=== PATIENT | male | born 1935 | race Caucasian/White ===

== ENCOUNTER 2016-08-25 14:15 | Inpatient (IN) | payer OTHER ==
[2016-08-25 15:24] LABS: BASOPHIL 0.6 % (0-2.0); EOSINOPHIL 5.1 % (0-4.5); MCH 32.7 pg (25.7-33.7); MCHC 34.1 g/dl (32.0-35.9); MEAN CELL VOLUME 95.9 fl (80-96); NEUTROPHILS 45.7 % (42.8-82.8); PLATELET COUNT 162 K/MM3 (134-434); RDW 13.3 % (11.9-15.9); WHITE BLOOD COUNT 6.9 K/mm3 (4.0-10.0)
[2016-08-25 15:35] LABS: ALBUMIN 3.5 g/dl (3.4-5.0); ANION GAP 6 (8-16); BILIRUBIN,TOTAL 0.5 mg/dL (0.2-1.0); CALCIUM 8.9 mg/dL (8.5-10.1); CO2 32 mmol/L (21-32); CREATININE 1.9 mg/dL (0.7-1.3); SGPT/ALT 45 U/L (12-78); TOT PROT 7.1 g/dl (6.4-8.2)
[2016-08-25 15:36] LABS: INR 1.04 (0.82-1.09); PROTHROMBIN TIME (PATIENT) 11.5 SEC (9.98-11.88)
[2016-08-25 15:40] LABS: ALK PHOS 36 U/L (45-117); SGOT/AST 27 U/L (15-37); TROPONIN I < 0.02 ng/ml (0.00-0.05)
[2016-08-25 15:41] LABS: GLUCOSE,RANDOM 342 mg/dL (74-106)
--- NOTE | 2016-08-25 15:42 | PDOC ---
History of Present Illness - General History Source: Patient Exam Limitations: No Limitations - History of Present Illness Initial Comments: 08/25/16 15:45 Patient is a 80 year old male with significant past medical history of diabetes type 2, hypertension, dyslipidemia, HIV+ (controlled, non progressive), and cardiac stent x4 who presents to the ED with left sided facial droop and slurred speech since 4 days ago. Patient notes that he has been slurring his speech and his lip droops down but denies biting his tongue. Patient also reports oozing from the right eye and production of tears in contrast to left eye that feels more dry. PCP: Dr. Marks <Nga Celis - Last Filed: 08/25/16 18:04> <Rayshawn Norton - Last Filed: 08/25/16 18:07> - General Chief Complaint: Facial Droop Stated Complaint: ISSUE WITH JAW/MOUTH Time Seen by Provider: 08/25/16 14:52 Past History <Nga Celis - Last Filed: 08/25/16 18:04> - Past Medical History Anemia: No Asthma: No Cardiac Disorders: Yes Diabetes: Yes HTN: Yes Hypercholesterolemia: Yes HIV: Yes - Surgical History Cardiac Surgery: Yes (STENT) - Immunization History Td Vaccination: (unsure) Immunization Up to Date: Yes - Psycho/Social/Smoking Cessation Hx Anxiety: No Suicidal Ideation: No Smoking Status: No Smoking History: Never smoked Years of Tobacco Use: 0 Have you smoked in the past 12 months: No Number of Cigarettes Smoked Daily: 0 Cigars Per Day: 0 Hx Alcohol Use: Yes (occasional) Drug/Substance Use Hx: Yes Substance Use Type: Alcohol Hx Substance Use Treatment: No <Rayshawn Norton - Last Filed: 08/25/16 18:07> - Past Medical History Allergies/Adverse Reactions: Allergies Allergy/AdvReac Type Severity Reaction Status Date / Time No Known Allergies Allergy Verified 08/25/16 14:24 Home Medications: Ambulatory Orders Alpha Lipoic Acid 200 mg PO TID 12/17/12 Ascorbate Calcium/Bioflav [Cande-C 500 mg Tablet] 1 each PO BID 12/17/12 Aspirin [ASA -] 81 mg PO DAILY 12/17/12 Cholecalciferol (Vitamin D3) [Vitamin D3] 1,000 unit PO DAILY 12/17/12 Darunavir Ethanolate [Prezista] 600 mg PO BID 12/17/12 Didanosine [Videx] 125 mg PO DAILY 12/17/12 Fenofibrate [Lipofen] 145 mg PO DAILY 12/17/12 Ferrous Fumarate 65 mg PO DAILY 12/17/12 Glyburide 7.5 mg PO BID 12/17/12 Lamivudine [Epivir] 100 mg PO DAILY 12/17/12 Lisinopril [Prinivil] 2.5 mg PO DAILY 12/17/12 Metoprolol Tartrate [Lopressor] 25 mg PO DAILY 12/17/12 [place]-3 Acid Ethyl Esters [Lovaza] 2 PO BID 12/17/12 Prasugrel Hydrochloride [Effient] 5 mg PO DAILY 12/17/12 Saw [place] 160 mg PO DAILY 12/17/12 Tamsulosin HCl 0.4 mg PO DAILY 12/17/12 Ubidecarenone [Co Q10] 200 mg PO TID 12/17/12 Review of Systems - Review of Systems Able to Perform ROS?: Yes Comments:: 08/25/16 15:47 GENERAL/CONSTITUTIONAL: No fever or chills. No weakness. HEAD, EYES, EARS, NOSE AND THROAT: +left facial droop. + right eye discharge. No change in vision. No ear pain or discharge. No sore throat. CARDIOVASCULAR: No chest pain or shortness of breath. RESPIRATORY: No cough, wheezing, or hemoptysis. GASTROINTESTINAL: No nausea, vomiting, diarrhea or constipation. GENITOURINARY: No dysuria, frequency, or change in urination. MUSCULOSKELETAL: No joint or muscle swelling or pain. No neck or back pain. SKIN: No rash NEUROLOGIC: +slurred speech. No headache, vertigo, loss of consciousness, or change in strength/sensation. ENDOCRINE: No increased thirst. No abnormal weight change. HEMATOLOGIC/LYMPHATIC: No anemia, easy bleeding, or history of blood clots. ALLERGIC/IMMUNOLOGIC: No hives or skin allergy. <Nga Celis - Last Filed: 08/25/16 18:04> *Physical Exam - Vital Signs Last Vital Signs Temp Pulse Resp BP Pulse Ox 97.2 F L 59 L 18 133/58 97 08/25/16 14:24 08/25/16 14:24 08/25/16 14:24 08/25/16 14:24 08/25/16 14:24 - Physical Exam Comments: 08/25/16 15:48 GENERAL: Awake, alert, and fully oriented, in no acute distress HEAD: No signs of trauma EYES: PERRLA, EOMI, sclera anicteric, conjunctiva clear ENT: Auricles normal inspection, hearing grossly normal, nares patent, oropharynx clear without exudates. Moist mucosa NECK: Normal ROM, supple, no lymphadenopathy, JVD, or masses LUNGS: Breath sounds equal, clear to auscultation bilaterally. No wheezes, and no crackles HEART: Regular rate and rhythm, normal S1 and S2, no murmurs, rubs or gallops ABDOMEN: Soft, nontender, normoactive bowel sounds. No guarding, no rebound. No masses EXTREMITIES: Normal range of motion, no edema. No clubbing or cyanosis. No cords, erythema, or tenderness NEUROLOGICAL: +left sided facial droop, limited to facial nerve, CN VII. + slurred speech. Cranial nerves II- & VIII-XII grossly intact. Normal gait SKIN: Warm, Dry, normal turgor, no rashes or lesions noted. <Nga Celis - Last Filed: 08/25/16 18:04> - Vital Signs Last Vital Signs Temp Pulse Resp BP Pulse Ox 97.2 F L 59 L 18 133/58 97 08/25/16 14:24 08/25/16 14:24 08/25/16 14:24 08/25/16 14:24 08/25/16 14:24 <Rayshawn Norton - Last Filed: 08/25/16 18:07> Heart Score/ECG Review #1 08/25/16 16:[address] Norton Impression: normal sinus rhythm right bundle branch block vent rate 60 bpm <Nga Celis - Last Filed: 08/25/16 18:04> ED Treatment Course - LABORATORY CBC & Chemistry Diagram: 08/25/16 15:10 08/25/16 15:10 - ADDITIONAL ORDERS Additional order review: Laboratory Results 08/25/16 08/25/16 15:10 15:10 INR 1.04 Sodium 138 Potassium 4.8 Chloride 100 Carbon Dioxide 32 Anion Gap 6 L BUN 34 H Creatinine 1.9 H Creat Clearance w eGFR 34.46 Random Glucose 342 H* D Calcium 8.9 Total Bilirubin 0.5 D AST 27 D ALT 45 D Alkaline Phosphatase 36 L Creatine Kinase 119 Troponin I < 0.02 Total Protein 7.1 Albumin 3.5 08/25/16 15:10 RBC 4.41 MCV 95.9 MCHC 34.1 RDW 13.3 MPV 8.0 D Neutrophils % 45.7 D Lymphocytes % 41.1 H D Monocytes % 7.5 Eosinophils % 5.1 H D Basophils % 0.6 - RADIOLOGY Radiology Studies Ordered: 08/25/16 16:53 EXAM#: TYPE/EXAM: RESULT: CT/HEAD CT WITHOUT CONTRAST Cranial CT without contrast CLINICAL INFORMATION: facial weakness for 3 days; evaluate for CVA An acute/subacute 2 x 1 cm infarct is seen involving a portion of the head of the right caudate nucleus and the right putamen ventrally. A punctate chronic right frontal periventricular infarct is seen. Several punctate bilateral chronic basal ganglia infarcts identified on an MRI exam of are difficult to appreciate on CT. There is no obvious mass lesion. No extra-axial fluid collection. Involutional changes are noted with corresponding mild ventricular dilatation. IMPRESSION: Acute/subacute nonhemorrhagic right basal ganglia infarct as discussed. Punctate chronic right frontal periventricular infarct. <Nga Celis - Last Filed: 08/25/16 18:04> - LABORATORY CBC & Chemistry Diagram: 08/25/16 15:10 08/25/16 15:10 - ADDITIONAL ORDERS Additional order review: Laboratory Results 08/25/16 08/25/16 15:10 15:10 INR 1.04 Sodium 138 Potassium 4.8 Chloride 100 Carbon Dioxide 32 Anion Gap 6 L BUN 34 H Creatinine 1.9 H Creat Clearance w eGFR 34.46 Random Glucose 342 H* D Calcium 8.9 Total Bilirubin 0.5 D AST 27 D ALT 45 D Alkaline Phosphatase 36 L Creatine Kinase 119 Troponin I < 0.02 Total Protein 7.1 Albumin 3.5 08/25/16 15:10 RBC 4.41 MCV 95.9 MCHC 34.1 RDW 13.3 MPV 8.0 D Neutrophils % 45.7 D Lymphocytes % 41.1 H D Monocytes % 7.5 Eosinophils % 5.1 H D Basophils % 0.6 - RADIOLOGY Radiology Studies Ordered: Category Date Time Status HEAD CT WITHOUT CONTRAST [CT] Stat CT Scan 08/25/16 14:52 Ordered CHEST X-RAY PORTABLE* [RAD] Stat Radiology 08/25/16 14:52 Taken <Rayshawn Norton - Last Filed: 08/25/16 18:07> Medical Decision Making - Medical Decision Making 08/25/16 15:50 80 year old male with significant past medical history of diabetes, hypertension , dyslipidemia, HIV+ (controlled, non progressive), and cardiac stent x4 who presents to the ED with left sided facial droop and slurred speech since 4 days ago. Will order labs and reassess after the results are back. Patient will receive supportive care in the meantime. 08/25/16 16:16 CXR no acute pathology. Awaiting CT results. 08/25/16 16:55 A call was placed to [facility]. Awaiting a call back from Dr. Darnell Chapa. 08/25/16 17:[address] Chapa. Patient requires admission. 08/25/16 17:29 A page was placed to Dr. Marks. The service of Dr. Marks transferred the call to Dr. Brower's service, awaiting a call back. 08/25/16 18:04 Case was discussed with Dr. Brower. <Nga Celis - Last Filed: 08/25/16 18:04> *DC/Admit/Observation/Transfer - Attestations Scribe Attestion: 08/25/16 15:51 Documentation prepared by JULIAN Bazan, acting as manager medical writing for Rayshawn Norton MD/DO. <Nga Celis - Last Filed: 08/25/16 18:04> - Discharge Dispostion Admit: Yes - Attestations Physician Attestion: 08/25/16 15:42 I, Dr. Rayshawn Norton, attest that this document has been prepared under my direction and personally reviewed by me in its entirety. I further attest, that it accurately reflects all work, treatment, procedures and medical decision -making performed by me. <Rayshawn Norton - Last Filed: 08/25/16 18:07> Diagnosis at time of Disposition: Ramírez's palsy Transient cerebral ischemia Qualifiers: Transient cerebral ischemia type: unspecified Qualified Code(s): G45.9 - Transient cerebral ischemic attack, unspecified - Discharge Dispostion Condition at time of disposition: Unchanged/Unknown
[2016-08-25 22:40] VITALS: BMI 21.5
[2016-08-26] MEDS: OMEGA-3 ACID ETHYL ESTERS (FATTY-ACIDS) 1 GM CAPSULE (FP) PO SCH ×2 (00:28→09:50)
[2016-08-26] MEDS: METOPROLOL TARTRATE 25 MG TABLET (FP) PO SCH ×2 (00:28→09:50)
--- NOTE | 2016-08-26 00:32 | EKG ---
Test Reason : Blood Pressure : / mmHG Vent. Rate : 060 BPM Atrial Rate : 060 BPM P-R Int : 184 ms QRS Dur : 164 ms QT Int : 472 ms P-R-T Axes : 032 076 032 degrees QTc Int : 472 ms NORMAL SINUS RHYTHM RIGHT BUNDLE BRANCH BLOCK ABNORMAL ECG WHEN COMPARED WITH ECG OF 17-MAR-2012 08:56, NO SIGNIFICANT CHANGE WAS FOUND Confirmed by DIONI ROMAN MD ([id number]) on 08/26/2016 12:32:40 AM Referred By: Confirmed By:DIONI ROMAN MD
[2016-08-26] MEDS ORDERED: ALPHA LIPOIC ACID 200 MG PO SCH (06:00)
[2016-08-26] MEDS: glyBURIDE 5 MG TABLET (UD) PO SCH ×2 (06:32→18:08)
[2016-08-26 08:38] LABS: BASOPHIL 0.5 % (0-2.0); MCH 31.8 pg (25.7-33.7); MCHC 33.4 g/dl (32.0-35.9); MEAN CELL VOLUME 95.1 fl (80-96); MEAN PLT VOLUME 8.1 fl (7.5-11.1); PLATELET COUNT 164 K/MM3 (134-434); RDW 13.6 % (11.9-15.9)
[2016-08-26 09:19] LABS: ALBUMIN 3.5 g/dl (3.4-5.0); BILIRUBIN,TOTAL 0.6 mg/dL (0.2-1.0); CALCIUM 9.2 mg/dL (8.5-10.1); CREATININE 1.6 mg/dL (0.7-1.3); MAGNESIUM 2.4 mg/dL (1.8-2.4)
[2016-08-26] MEDS ORDERED: PT OWN MED DRAWER 7, Y5N ONE (09:27)
[2016-08-26] MEDS ORDERED: FENOFIBRIC ACID 135 MG CAP PO SCH (10:00)
[2016-08-26] MEDS ORDERED: CHOLECALCIFEROL (VITAMIN D3) 1,000 UNIT TABLET (FP) PO SCH (10:00)
[2016-08-26] MEDS ORDERED: FERROUS FUMARATE PO SCH (10:00)
[2016-08-26] MEDS ORDERED: ASPIRIN 81 MG CHEWABLE TABLETS PO SCH (10:00)
[2016-08-26] MEDS ORDERED: PRASUGREL HCL 5 MG TAB PO SCH (10:00)
[2016-08-26] MEDS ORDERED: [UNRECOGNIZED DRUG - OTHER] PO SCH (10:00)
--- NOTE | 2016-08-26 11:06 | CONSULT ---
Consult Consult Specialty:: Neurology Reason for Consultation:: Right facial droop - History of Present Illness History of Present Illness: 80 year old man, history of well controlled HIV, right carotid endarectomy, diabetes 2, hypertension, hyperlipidemia, cardiac stent, presents to the hospital with right sided facial droop and slurred speech. The patient states his symptoms occurred approximately four days ago where he woke up with right sided facial weakness. Also noted some difficulty with slurred speech. Denies any other focal symptoms, numbness, tingling, visual loss. Has history of carotid endarectomy after patient reports undergoing carotid dopplers which showed stenosis of right carotid. - History Source History Provided By: Patient Limitations to Obtaining History: No Limitations - Alcohol/Substance Use Hx Alcohol Use: Yes - Smoking History Smoking history: Never smoked Have you smoked in the past 12 months: No Aproximately how many cigarettes per day: 0 Home Medications - Allergies Allergies/Adverse Reactions: Allergies Allergy/AdvReac Type Severity Reaction Status Date / Time No Known Allergies Allergy Verified 08/25/16 14:24 - Home Medications Home Medications: Ambulatory Orders Alpha Lipoic Acid 200 mg PO TID 12/17/12 Ascorbate Calcium/Bioflav [Cande-C 500 mg Tablet] 1 each PO BID 12/17/12 Aspirin [ASA -] 81 mg PO DAILY 12/17/12 Fenofibrate [Lipofen] 145 mg PO DAILY 12/17/12 Ferrous Fumarate 65 mg PO DAILY 12/17/12 Glyburide 7.5 mg PO BID 12/17/12 Lamivudine [Epivir] 100 mg PO DAILY 12/17/12 Metoprolol Tartrate [Lopressor] 25 mg PO DAILY 12/17/12 [place]-3 Acid Ethyl Esters [Lovaza] 2 gm PO QID 12/17/12 Prasugrel Hydrochloride [Effient] 5 mg PO BID 12/17/12 Saw [place] 160 mg PO QID 12/17/12 Ubidecarenone [Co Q10] 200 mg PO DAILY 12/17/12 Sitagliptin Phosphate [Januvia] 25 mg PO HS 08/25/16 Calcium Citrate/Vitamin D2 [Mike-Citrate Plus Vitamin D Tab] 1 each PO DAILY Darunavir/Cobicistat [Prezcobix 800 mg-150 mg Tablet] 1 each PO DAILY 08/26/16 Review of Systems - Review of Systems Constitutional: reports: No Symptoms Eyes: reports: No Symptoms Neck: reports: No Symptoms Cardiovascular: reports: No Symptoms Respiratory: reports: No Symptoms Physical Exam Vital Signs: Vital Signs Temperature 98.4 F 08/26/16 09:55 Pulse Rate 48 L 08/26/16 09:55 Respiratory Rate 16 08/26/16 09:55 Blood Pressure 109/56 08/26/16 09:55 O2 Sat by Pulse Oximetry (%) 99 08/26/16 09:55 Constitutional: Yes: Well Nourished, No Distress Eyes: Yes: Conjunctiva Clear, EOM Intact HENT: Yes: Atraumatic, Normocephalic Neurological: Yes: Alert, Oriented, Other (extra ocular muscles intact, visual schaeffer full, right facial weakness- difficult to discern if UMN or LMN Motor strength 5/5 throughout Sensory intact to light touch) Labs: CBC, BMP 08/26/16 06:05 08/26/16 06:05 Assessment/Plan 80 year old male with significant past medical history of diabetes type 2, hypertension, dyslipidemia, HIV+ (controlled, non progressive), and cardiac stent x4 who presents to the ED with left sided facial droop and slurred speech since 4 days ago. Patient notes that he has been slurring his speech and his lip droops down but denies biting his tongue. Patient also reports oozing from the right eye and production of tears in contrast to left eye that feels more dry. CT head without contrast right frontal stroke, however patient exhibits right facial weakness Recommend MRI brain without contrast Aspirin 325 daily LDL, hga1c Carotid doppler Echocardiogram Will follow
--- NOTE | 2016-08-26 11:37 | HP ---
Admitting History and Physical - Admission Chief Complaint: right facial droop / slurred speech X 3 days History of Present Illness: Patient is a 80 year old male with significant past medical history of diabetes type 2, peripheral neuropathy, spinal stenosis, cervical radiculopathy, hypertension, dyslipidemia, HIV+ (controlled, non progressive) Viral load undetectable, and cardiac stent x4 who presents to the ED with left sided facial droop and slurred speech which began 4 days ago, has not progressed. Patient notes that he has been slurring his speech and his lip droops down but denies biting his tongue. Patient also reports tearing from the right eye. Tearing has subsided, speech has improved, facial droop has stayed the same. 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 History Source: Patient, Medical Record Limitations to Obtaining History: No Limitations - Past Medical History [employer]: Yes: Peripheral Neuropathy Cardiovascular: Yes: Hyperlipdemia Infectious Disease: Yes: HIV Musculoskeletal: Yes: Chronic low back pain, Osteoarthritis Endocrine: Yes: Diabetes Mellitus - Past Surgical History Past Surgical History: Yes: Carotid Endarterectomy (right) - Smoking History Smoking history: Never smoked Have you smoked in the past 12 months: No Aproximately how many cigarettes per day: 0 - Alcohol/Substance Use Hx Alcohol Use: Yes - Social History ADL: Independent History of Recent Travel: No Home Medications - Allergies Allergies/Adverse Reactions: Allergies Allergy/AdvReac Type Severity Reaction Status Date / Time No Known Allergies Allergy Verified 08/25/16 14:24 - Home Medications Home Medications: Ambulatory Orders Alpha Lipoic Acid 200 mg PO TID 12/17/12 Ascorbate Calcium/Bioflav [Cande-C 500 mg Tablet] 1 each PO BID 12/17/12 Aspirin [ASA -] 81 mg PO DAILY 12/17/12 Fenofibrate [Lipofen] 145 mg PO DAILY 12/17/12 Ferrous Fumarate 65 mg PO DAILY 12/17/12 Glyburide 7.5 mg PO BID 12/17/12 Lamivudine [Epivir] 100 mg PO DAILY 12/17/12 Metoprolol Tartrate [Lopressor] 25 mg PO DAILY 12/17/12 [place]-3 Acid Ethyl Esters [Lovaza] 2 gm PO QID 12/17/12 Prasugrel Hydrochloride [Effient] 5 mg PO BID 12/17/12 Saw [place] 160 mg PO QID 12/17/12 Ubidecarenone [Co Q10] 200 mg PO DAILY 12/17/12 Sitagliptin Phosphate [Januvia] 25 mg PO HS 08/25/16 Calcium Citrate/Vitamin D2 [[place]-Citrate Plus Vitamin D Tab] 1 each PO DAILY Darunavir/Cobicistat [Prezcobix 800 mg-150 mg Tablet] 1 each PO DAILY 08/26/16 Review of Systems - Review of Systems Constitutional: reports: No Symptoms Eyes: reports: No Symptoms (tearing from right eye), Other HENT: reports: Difficult Swallowing Neck: reports: No Symptoms Cardiovascular: reports: No Symptoms Respiratory: reports: No Symptoms Gastrointestinal: reports: No Symptoms Genitourinary: reports: No Symptoms Breasts: reports: No Symptoms Reported Musculoskeletal: reports: No Symptoms Integumentary: reports: No Symptoms Neurological: reports: Numbness, Pre-Existing Deficit Physical Examination Vital Signs: Vital Signs Temperature 98.4 F 08/26/16 09:55 Pulse Rate 48 L 08/26/16 09:55 Respiratory Rate 16 08/26/16 09:55 Blood Pressure 109/56 08/26/16 09:55 O2 Sat by Pulse Oximetry (%) 99 08/26/16 09:55 Constitutional: Yes: Well Nourished, No Distress, Calm Eyes: Yes: Conjunctiva Clear, PERRL HENT: Yes: Atraumatic, Normocephalic, Other (facial asymmetry / slurring of some words) Neck: Yes: WNL Cardiovascular: Yes: WNL, Regular Rate and Rhythm Respiratory: Yes: WNL, CTA Bilaterally Gastrointestinal: Yes: WNL, Normal Bowel Sounds Renal/: Yes: WNL Musculoskeletal: Yes: WNL Extremities: Yes: WNL Edema: No Peripheral Pulses: Left Radial: 1+, Right Radial: 1+, Left Doralis Pedis: 1+, Right Dorsalis Pedis: 1+, Left Femoral: 1+, Right Femoral: 1+ Integumentary: Yes: WNL Neurological: Yes: Facial Droop, Pre-Existing Deficit (neuropathy LE) Psychiatric: Yes: WNL, Alert, Oriented Labs: CBC, BMP 08/26/16 06:05 08/26/16 06:05 Problem List - Problems (1) Garrido's palsy Code(s): G51.0 - GARRIDO'S PALSY (2) TIA (transient ischemic attack) Code(s): G45.9 - TRANSIENT CEREBRAL ISCHEMIC ATTACK, UNSPECIFIED Qualifiers: Transient cerebral ischemia type: unspecified Qualified Code(s): G45.9 - Transient cerebral ischemic attack, unspecified (3) Hyperlipemia Code(s): E78.5 - HYPERLIPIDEMIA, UNSPECIFIED (4) HIV disease Code(s): B20 - HUMAN IMMUNODEFICIENCY VIRUS [HIV] DISEASE (5) Peripheral neuropathy due to metabolic disorder Code(s): E88.9 - METABOLIC DISORDER, UNSPECIFIED G99.0 - AUTONOMIC NEUROPATHY IN DISEASES CLASSIFIED ELSEWHERE (6) Diabetes mellitus Code(s): E11.9 - TYPE 2 DIABETES MELLITUS WITHOUT COMPLICATIONS (7) Coronary arteriosclerosis in patient with history of previous myocardial infarction Code(s): I25.10 - ATHSCL HEART DISEASE OF [place] CORONARY ARTERY W/O ANG PCTRS I25.2 - OLD MYOCARDIAL INFARCTION
[2016-08-26] MEDS ORDERED: lamiVUDine 10 MG/1 ML BULK BOTTLE PO SCH (12:00)
[2016-08-26] MEDS ORDERED: UBIDECARENONE 200 MG PO SCH (12:00)
[2016-08-26] MEDS ORDERED: PATIENT'S OWN MEDICATION (NON-FORMULARY) (Darunavir/Cobicistat [Prezcobix 800 Mg-150 Mg Ta PO SCH (12:00)
[2016-08-26] MEDS ORDERED: CALCIUM 500MG/VIT-D 200 UNITS COMBO TABLET (FP) PO SCH (13:00)
[2016-08-26 15:39] VITALS: BP 110/64; PULSE 46; TEMP 97.8
[2016-08-26] MEDS ORDERED: sitaGLIPtin PHOSPHATE 25 MG TABLET (FP) PO SCH (22:00)
== END 2016-08-26 19:28 | disposition home or self-care (01) | DRG 69 ==
LOC: JER 14:15 → JERBED 18:08 → UNDOADMIN 18:18 → JERBED 18:18 → J4S 21:47
PROVIDERS: ADMIT Family Medicine; ATTEND Family Medicine
DX: G45.9 Transient cerebral ischemic attack, unspecified (principal); R29.810 Facial weakness; E11.9 Type 2 diabetes mellitus without complications; I10 Essential (primary) hypertension; E78.5 Hyperlipidemia, unspecified; E88.9 Metabolic disorder, unspecified; G62.89 Other specified polyneuropathies; M48.00 Spinal stenosis, site unspecified; M54.5 Low back pain; M19.90 Unspecified osteoarthritis, unspecified site; I25.10 Atherosclerotic heart disease of native coronary artery without angina pectoris; Z21 Asymptomatic human immunodeficiency virus [HIV] infection status; Z95.5 Presence of coronary angioplasty implant and graft
CPT/HCPCS: 36415; 70450-TC; 70551-TC; 71010-TC; 80053; 82550; 83735; 84484; 85025; 85610; 93005; 93010; 93880-TC; 99285-25

== ENCOUNTER 2016-11-28 09:08 | Day surgery (SDC) | payer BC, OTHER ==
[2016-11-27 14:31] VITALS: BMI 30.2
[2016-11-28] MEDS ORDERED: PROPOFOL 20 ML ONE ×2 (09:35)
[2016-11-28] MEDS ORDERED: ePHEDrine SULFATE 50 MG/1 ML AMPULE ONE (10:31)
[2016-11-28 10:35] VITALS: TEMP 98
[2016-11-28 11:33] VITALS: BP 135/65; PULSE 51
--- NOTE | 2016-11-29 13:35 | PATH ---
Surgical Pathology Report Patient Name: NADIA RANKIN [facility]. Rec. #: [id number] /Age/Gender: 1935 (Age: 81) / M Account: [id number] Location: U-ENDOSCOPY Taken: 11/28/2016 Received: 11/28/2016 Reported: 11/29/2016 Physicians: Barber Obrien D.O. Specimen(s) Received A: POLYP TRANSVERSE B: POLYP SIGMOID C: ANAL RECTAL POLYP Clinical History Rectal bleeding Colon polyps and hemorrhoids Final Diagnosis A. COLON, TRANSVERSE, POLYP, POLYPECTOMY: POLYPOID FRAGMENT OF COLONIC MUCOSA WITH PROMINENT REACTIVE LYMPHOID AGGREGATE AND FOCAL SURFACE HYPERPLASTIC CHANGE. B. COLON, SIGMOID, POLYP, POLYPECTOMY: TUBULAR ADENOMA. C. ANAL-RECTAL POLYP, POLYPECTOMY: MUCOSAL PROLAPSE-TYPE POLYP WITH FOCAL HYPERPLASTIC CHANGE. Electronically Signed Maxx Chowdhury M.D. Gross Description A. Received in formalin, labeled "polyp transverse" is a christensen, irregular portion of soft tissue measuring 0.3 cm in greatest dimension. The specimen is submitted in toto in one cassette. B. Received in formalin, labeled "polyp sigmoid" is a christensen, irregular portion of soft tissue measuring 0.2 cm in greatest dimension. The specimen is submitted in toto in one cassette. C. Received in formalin, labeled "anal rectal polyp" is a christensen, irregular portion of soft tissue measuring 0.3 cm in greatest dimension. The specimen is submitted in toto in one cassette. /11/28/2016 saudi11/28/2016
== END 2016-11-28 11:40 | disposition home or self-care (01) ==
LOC: JASU-ENDO 09:08
PROVIDERS: ATTEND Internal Medicine Gastroenterology
PROC: 0DBP8ZX Excision of Rectum, Via Natural or Artificial Opening Endoscopic, Diagnostic (ICD-10-PCS; 2016-11-28)
PROC: 0DBN8ZX Excision of Sigmoid Colon, Via Natural or Artificial Opening Endoscopic, Diagnostic (ICD-10-PCS; 2016-11-28)
PROC: 0DBL8ZX Excision of Transverse Colon, Via Natural or Artificial Opening Endoscopic, Diagnostic (ICD-10-PCS; principal; 2016-11-28 10:00)
DX: K62.5 Hemorrhage of anus and rectum (principal); K57.30 Diverticulosis of large intestine without perforation or abscess without bleeding; D12.5 Benign neoplasm of sigmoid colon; D12.3 Benign neoplasm of transverse colon
CPT/HCPCS: 88305-TC

== ENCOUNTER 2017-06-07 16:12 | Inpatient (IN) | payer BC, OTHER ==
[2017-06-07 16:38] VITALS: BMI 22.1
[2017-06-07] MEDS ORDERED: ASPIRIN 81 MG CHEWABLE TABLETS PO ONE (16:41)
[2017-06-07] MEDS ORDERED: SODIUM CHLORIDE 1,000 ML IV SCH (16:45)
[2017-06-07 17:16] LABS: BASOPHIL 0.6 % (0-2.0); EOSINOPHIL 1.6 % (0-4.5); MCH 31.7 pg (25.7-33.7); MCHC 33.9 g/dl (32.0-35.9); MEAN CELL VOLUME 93.5 fl (80-96); MEAN PLT VOLUME 7.5 fl (7.5-11.1); NEUTROPHILS 75.5 % (42.8-82.8); PLATELET COUNT 160 K/MM3 (134-434); RDW 14.4 % (11.9-15.9); WHITE BLOOD COUNT 8.3 K/mm3 (4.0-10.0)
--- NOTE | 2017-06-07 17:30 | PDOC ---
History of Present Illness - General Chief Complaint: Weakness Stated Complaint: WEAKNESS Time Seen by Provider: 06/07/17 16:25 History Source: Patient Exam Limitations: No Limitations - History of Present Illness Initial Comments: This is a 81 YOM with h/o HIV (on HAART and last viral load undetectable earlier this year), CAD with NE (stents placed x4, on daily ASA 81 mg), carotid endarterectomy, NIDDM, HTN, HLD, and TIA who presents c/o generalized weakness. The patient states that he awoke per usual at 8 am today and felt weak enough that he was unable to get out of bed. He waited at home in bed until his family member came and saw him, then called 911. The patient himself notes mild sweats , recent fever and runny nose, and two episodes of vomiting today, but he denies any chest pain, SOB, palpitations, cough, or other symptoms. Past History - Past Medical History Allergies/Adverse Reactions: Allergies Allergy/AdvReac Type Severity Reaction Status Date / Time No Known Allergies Allergy Verified 08/25/16 14:24 Home Medications: Ambulatory Orders Alpha Lipoic Acid 200 mg PO TID 12/17/12 Ascorbate Calcium/Bioflav [Cande-C 500 mg Tablet] 1 each PO BID 12/17/12 Aspirin [ASA -] 81 mg PO DAILY 12/17/12 Fenofibrate [Lipofen] 160 mg PO DAILY 12/17/12 Ferrous Fumarate 65 mg PO BID 12/17/12 Lamivudine [Epivir] 50 mg PO DAILY 12/17/12 Metoprolol Tartrate [Lopressor] 25 mg PO BID 12/17/12 [place]-3 Acid Ethyl Esters [Lovaza] 2 gm PO BID 12/17/12 Prasugrel Hydrochloride [Effient] 5 mg PO BID 12/17/12 Ubidecarenone [Co Q10] 15 ml PO DAILY 12/17/12 Sitagliptin Phosphate [Januvia] 25 mg PO HS 08/25/16 Calcium Citrate/Vitamin D2 [Mike-Citrate Plus Vitamin D Tab] 1 each PO DAILY Darunavir/Cobicistat [Prezcobix 800 mg-150 mg Tablet] 1 each PO DAILY 08/26/16 Active Hexose 1 tab PO QID 11/27/16 Cholecalciferol (Vitamin D3) [Vitamin D3] 2,000 unit PO BID 11/27/16 Didanosine [Videx EC] 200 mg PO DAILY 11/27/16 Glipizide [Glipizide ER] 10 mg PO BID 11/27/16 Loperamide HCl [Imodium -] 2 mg PO PRN PRN 11/27/16 Melatonin 6 mg PO DAILY 11/27/16 Multivitamin with Minerals [Icaps Plus] 1 each PO DAILY 11/27/16 Ritonavir [Norvir -] 100 mg PO BID 11/27/16 [place] Fruit [Saw [place]] 450 mg PO DAILY 11/27/16 Tamsulosin HCl 0.4 mg PO DAILY 11/27/16 Vitamin B Complex 1 tab PO DAILY 11/27/16 Vitamin E 400 unit PO DAILY 11/27/16 Darunavir Ethanolate [Prezista -] 600 mg PO BID 06/07/17 Rosuvastatin [Crestor -] 10 mg PO DAILY 06/07/17 Anemia: No Asthma: No Cardiac Disorders: Yes (CAD) CVA: Yes (TIA) COPD: No Diabetes: Yes (NIDM) HTN: Yes Hypercholesterolemia: Yes - Surgical History Cardiac Surgery: Yes (CARDIAC STENT) - Immunization History Td Vaccination: (unsure) Immunization Up to Date: Yes - Suicide/Smoking/Psychosocial Hx Smoking Status: No Smoking History: Never smoked Years of Tobacco Use: 0 Have you smoked in the past 12 months: No Number of Cigarettes Smoked Daily: 0 Cigars Per Day: 0 Hx Alcohol Use: No Drug/Substance Use Hx: No Substance Use Type: None Hx Substance Use Treatment: No Review of Systems - Review of Systems Able to Perform ROS?: Yes Is the patient limited Scottish proficient: No Constitutional: Yes: Chills, Fever, Other (sweats). No: Unexplained wgt Loss HEENTM: Yes: Other (runny nose). No: Nose Congestion, Throat Pain Respiratory: No: Cough, Shortness of Breath Cardiac (ROS): No: Chest Pain, Palpitations ABD/GI: Yes: Nausea, Vomiting. No: Constipated, Diarrhea : No: Burning, Dysuria Musculoskeletal: No: Back Pain, Neck Pain Integumentary: No: Bruising, Rash Neurological: No: Headache, Numbness, Tingling, Weakness, Dizziness Endocrine: No: Unexplained Weight Gain, Unexplained Weight Loss *Physical Exam - Vital Signs Last Vital Signs Temp Pulse Resp BP Pulse Ox 98.3 F 76 158/86 94 L 06/07/17 16:15 06/07/17 16:15 06/07/17 16:15 06/07/17 16:15 - Physical Exam General Appearance: Yes: Nourished, Appropriately Dressed, Mild Distress, Other (patient mildly diaphoretic, answers questions appropriately but otherwise minimally conversive) HEENT: positive: EOMI, Normal Voice, Hearing Grossly Normal. negative: Scleral Icterus (R), Scleral Icterus (L), Nasal Congestion Neck: positive: Trachea midline, Supple. negative: Tender, Rigid Respiratory/Chest: positive: Lungs Clear, Normal Breath Sounds. negative: Respiratory Distress, Crackles, Rhonchi, Stridor, Wheezing Cardiovascular: positive: Regular Rhythm, Regular Rate. negative: Edema, Murmur Gastrointestinal/Abdominal: positive: Normal Bowel Sounds, Soft. negative: Tender, Organomegaly, Pulsatile Mass, Guarding Musculoskeletal: positive: Normal Inspection. negative: Decreased Range of Motion, Vertebral Tenderness Extremity: positive: Normal Capillary Refill, Normal Inspection, Normal Range of Motion. negative: Tender, Cyanosis Integumentary: positive: Normal Color, Dry, Warm. negative: Erythema, Rash, Bruising Neurologic: positive: monument setter II-XII NML intact, Fully Oriented, Alert, Normal Mood/ Affect, Normal Response, Motor Strength 5/5 Heart Score/ECG Review - History History: Slightly suspicious - Electrocardiogram EKG: Normal (no change from prior) - Age Age: >/= 65 - Risk Factors Risk Factors Heart Score: Yes Hx Hypercholesterolemia, Yes Hx Hypertension, Yes Hx Diabetes Based on the list above the patient has:: >/=3 risk factors or Hx atherosclerotic disease - Troponin Troponin: </= normal limit - Score Heart Score - Total: 4 ED Treatment Course - LABORATORY CBC & Chemistry Diagram: 06/08/17 06:37 06/08/17 06:37 - ADDITIONAL ORDERS Additional order review: 06/07/17 17:00 RBC 4.42 MCV 93.5 MCHC 33.9 RDW 14.4 MPV 7.5 Neutrophils % 75.5 D Lymphocytes % 11.6 D Monocytes % 10.7 H Eosinophils % 1.6 Basophils % 0.6 - RADIOLOGY Radiology Studies Ordered: Category Date Time Status CHEST PA & LAT [RAD] Stat Radiology 06/07/17 16:41 Ordered Medical Decision Making - Medical Decision Making 81 YOM with HIV on HAART, current azithromycin use (patient states for infection but does not know what kind), CAD with NE and stents x4, NIDDM, HTN, HLD, and TIA who presents BIBA for generalized weakness, sweats, and vomiting x2. On exam he appears slightly uncomfortable, mildly diaphoretic, sleepy but arousable, otherwise unremarkable exam. DDX IBNLT infection (e.g. PNA, UTI, intracranial infection), ACS, CVA/TIA, etc. Heightened concern given the patient's h/o HIV but 06/07/17 18:42 Patient re-examined to have continued sleepiness, still arousable and does answer questions, not talkative. Accompanied by family members at bedside who seem supportive. Labs remarkable for Cr 2.0 which is higher than the last several values he has had here at [facility]. Patient to be admitted, call placed to Dr. Brower and awaiting call back. Care signed out to oncoming resident at the end of my shift. *DC/Admit/Observation/Transfer Diagnosis at time of Disposition: HIV disease, Hypoxemia - Discharge Dispostion Condition at time of disposition: Guarded - Referrals - Patient Instructions - Post Discharge Activity
[2017-06-07 17:39] LABS: INR 1.12 (0.82-1.09); PROTHROMBIN TIME (PATIENT) 12.7 SEC (9.98-11.88)
[2017-06-07 17:46] LABS: ALBUMIN 3.5 g/dl (3.4-5.0); ANION GAP 8 (8-16); BILIRUBIN,TOTAL 0.7 mg/dL (0.2-1.0); CALCIUM 8.8 mg/dL (8.5-10.1); CO2 31 mmol/L (21-32); GLUCOSE,RANDOM 144 mg/dL (74-106); MAGNESIUM 2.1 mg/dL (1.8-2.4); SGOT/AST 23 U/L (15-37); SGPT/ALT 37 U/L (12-78); TOT PROT 7.6 g/dl (6.4-8.2)
[2017-06-07 17:48] LABS: ALK PHOS 35 U/L (45-117); CPK 77 IU/L (39-308); TROPONIN I < 0.02 ng/ml (0.00-0.05)
[2017-06-07] MEDS ORDERED: ASPIRIN 81 MG CHEWABLE TABLETS ONE (18:09)
--- NOTE | 2017-06-07 18:28 | PDOC ---
Attending Attestation - Resident Resident Name: Kelsey Fox - ED Attending Attestation I have performed the following: I have examined & evaluated the patient - HPI HPI: 06/07/17 19:05 81 y/o male presents to ED for eval of generalized weakness and fatigue, an episode of nausea enroute to hospital and feeling a little dizzy no chest pain - Physicial Exam PE: 06/07/17 19:06 Pt seen and examined at bedside , pt with non focal exam, pt is awake and cooperative with exam but seems very tired + bs jun cta heart s1 s2 abd soft no guarding or tendernewss Neuro: awake but fatigued lacy's - Medical Decision Making 06/07/17 19:07 81 y/o male hiv, cva/tia in past, dm, htn, elevated chol cad with generalized weakness, labs reviewed along with ct recommendation is to admit
[2017-06-07] MEDS ORDERED: ALBUTEROL SO4 2.5/IPRATROPIUM 0.5 INH SOL 3 ML VIAL.NEB. NEB ONE ×2 (19:59→23:56)
--- NOTE | 2017-06-07 20:36 | PDOC ---
*Physical Exam - Vital Signs Last Vital Signs Temp Pulse Resp BP Pulse Ox 98.4 F 68 17 111/57 99 06/07/17 19:52 06/07/17 19:52 06/07/17 19:52 06/07/17 19:52 06/07/17 19:52 - Physical Exam General Appearance: Yes: Nourished HEENT: positive: Pharyngeal Erythema, Other Neck: positive: Supple, Lymphadenopathy (R), Lymphadenopathy (L) Respiratory/Chest: positive: Wheezing Cardiovascular: positive: Regular Rhythm, Regular Rate, S1, S2 Gastrointestinal/Abdominal: positive: Soft. negative: Tenderness ED Treatment Course - LABORATORY CBC & Chemistry Diagram: 06/07/17 17:00 06/07/17 17:09 - ADDITIONAL ORDERS Additional order review: Laboratory Results 06/07/17 06/07/17 17:09 17:09 PT with INR 12.70 H INR 1.12 Sodium 139 Potassium 4.2 Chloride 100 Carbon Dioxide 31 Anion Gap 8 BUN 26 H Creatinine 2.0 H D Creat Clearance w eGFR 32.39 Random Glucose 144 H D Calcium 8.8 Magnesium 2.1 Total Bilirubin 0.7 AST 23 ALT 37 Alkaline Phosphatase 35 L D Creatine Kinase 77 Troponin I < 0.02 Total Protein 7.6 Albumin 3.5 06/07/17 17:09 Influenza Types A,B Antigen (MARQUES) - Final Nasopharyngeal Swab - Final 06/07/17 17:00 RBC 4.42 MCV 93.5 MCHC 33.9 RDW 14.4 MPV 7.5 Neutrophils % 75.5 D Lymphocytes % 11.6 D Monocytes % 10.7 H Eosinophils % 1.6 Basophils % 0.6 - Medications Given in the ED: ED Medications Discontinued Medications Generic Name Dose Route Start Last Admin Trade Name Elzbieta PRN Reason Stop Dose Admin Aspirin 162 mg 06/07/17 16:41 06/07/17 18:14 Asa - PO 06/07/17 16:42 162 mg ONCE ONE Administration Progress Note - Progress Note Progress Note: 06/07/17 20:26 Received sign-out from Dr. Fox. Received call back from Dr. Brower, and was requested to call patient's PMD (Dr. Marks). Medical Decision Making - Medical Decision Making 81yo man with HIV (on HAART), TIA, CAD s/p 4x stents, NIDDM, HTN, HLD who presents with generalized weakness and difficulty ambulating in the setting of URI symptoms. On , pt saw his ENT due to rhinorrhea and congestion, and was started on a Z-pack. Patient reports persistent rhinorrhea and intermittent productive cough for the past few days. This morning he felt weak and reports not being able to get out of bed, and called EMS. Prior to ED arrival he also had 2x episodes of NBNB emesis. 06/07/17 20:53 Patient desatted from 95% on 2L O2 --> 90-91% on RA. Expiratory wheezing noted on physical exam. Will give 1 duo neb and reassess. 06/07/17 21:[address] Marks. Patient will be admitted by Dr. Brower. Will give 1 dose of doxycycline 100mg IV for atypical coverage. Case discussed with Dr. Brower. Although PE is on the differential, will hold off on doing CTA as patient has not been tachycardic and has SAIMA (Cr 2, last known baseline 1.6 in Aug 2016). Dr. Brower will reassess the need for further imaging. In the interim, will continue to give IVFs to improve kidney function. 06/07/17 21:33 Admission decision to M/S under Dr. Brower for hypoxemia and HIV disease. 06/07/17 21:46 *DC/Admit/Observation/Transfer Diagnosis at time of Disposition: HIV disease, Hypoxemia - Discharge Dispostion Condition at time of disposition: Stable Admit: Yes - Referrals - Patient Instructions - Post Discharge Activity
[2017-06-07] MEDS ORDERED: DOXYCYCLINE INJECTION 100 MG in DEXTROSE 5%-WATER - 100 ML IVPB ONE (21:45)
[2017-06-07] MEDS ORDERED: DOXYCYCLINE HYCLATE 100 MG VIAL ONE (21:51)
[2017-06-07 23:27] LABS: URINE APPEARANCE CLEAR; URINE BILIRUBIN NEGATIVE (NEGATIVE); URINE BLOOD NEGATIVE (NEGATIVE); URINE COLOR LT. YELLOW; URINE GLUCOSE (UA) NEGATIVE (NEGATIVE); URINE KETONE NEGATIVE (NEGATIVE); URINE NITRITE NEGATIVE (NEGATIVE); URINE UROBILINOGEN 0.2 mg/dL (0.2-1.0)
[2017-06-07 23:28] LABS: URINE PROTEIN 1+ (NEGATIVE)
[2017-06-07] MEDS ORDERED: ATORVASTATIN CA 80 MG TABLET (FP) PO SCH (23:30)
[2017-06-07] MEDS ORDERED: LOPERAMIDE HCL 2 MG CAPSULE PO PRN (23:31)
[2017-06-07 23:35] LABS: URINE BACTERIA RARE /hpf (NONE SEEN); URINE MUCUS RARE; URINE RBC 1 /hpf (0-3); URINE WBC 1 /hpf (3-5); YEAST RARE
[2017-06-07] MEDS ORDERED: ALBUTEROL SO4 2.5/IPRATROPIUM 0.5 INH SOL 3 ML VIAL.NEB. NEB PRN (23:43)
[2017-06-07] MEDS ORDERED: DIDANOSINE PO SCH (23:45)
[2017-06-07] MEDS ORDERED: MELATONIN 1 MG TABLET PO SCH (23:45)
[2017-06-07] MEDS ORDERED: ACETAMINOPHEN 325 MG TABLET (FP) PO PRN (23:48)
--- NOTE | 2017-06-08 00:02 | HP ---
Admitting History and Physical - Admission Chief Complaint: dyspnea / weakness / HIV History of Present Illness: 81yo man with HIV (on HAART), TIA, CAD s/p 4x stents, NIDDM, HTN, HLD who presents with generalized weakness and difficulty ambulating in the setting of URI symptoms. On , pt saw his ENT due to rhinorrhea and congestion, and was started on a Z-pack. Patient reports persistent rhinorrhea and intermittent productive cough for the past few days. This morning he felt weak and reports not being able to get out of bed, and called EMS. Prior to ED arrival he also had 2x episodes of NBNB emesis. 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 Cardiovascular: Yes: Hyperlipdemia Infectious Disease: Yes: HIV Musculoskeletal: Yes: Chronic low back pain, Osteoarthritis Endocrine: Yes: Diabetes Mellitus - Past Surgical History Past Surgical History: Yes: Carotid Endarterectomy (right) - Smoking History Smoking history: Never smoked Have you smoked in the past 12 months: No Aproximately how many cigarettes per day: 0 - Alcohol/Substance Use Hx Alcohol Use: No - Social History ADL: Independent History of Recent Travel: No Home Medications - Allergies Allergies/Adverse Reactions: Allergies Allergy/AdvReac Type Severity Reaction Status Date / Time No Known Allergies Allergy Verified 08/25/16 14:24 - Home Medications Home Medications: Ambulatory Orders Alpha Lipoic Acid 200 mg PO TID 12/17/12 Ascorbate Calcium/Bioflav [Cande-C 500 mg Tablet] 1 each PO BID 12/17/12 Aspirin [ASA -] 81 mg PO DAILY 12/17/12 Fenofibrate [Lipofen] 160 mg PO DAILY 12/17/12 Ferrous Fumarate 65 mg PO BID 12/17/12 Lamivudine [Epivir] 50 mg PO DAILY 12/17/12 Metoprolol Tartrate [Lopressor] 25 mg PO BID 12/17/12 [place]-3 Acid Ethyl Esters [Lovaza] 2 gm PO BID 12/17/12 Prasugrel Hydrochloride [Effient] 5 mg PO BID 12/17/12 Ubidecarenone [Co Q10] 15 ml PO DAILY 12/17/12 Sitagliptin Phosphate [Januvia] 25 mg PO HS 08/25/16 Calcium Citrate/Vitamin D2 [Mike-Citrate Plus Vitamin D Tab] 1 each PO DAILY Darunavir/Cobicistat [Prezcobix 800 mg-150 mg Tablet] 1 each PO DAILY 08/26/16 Active Hexose 1 tab PO QID 11/27/16 Cholecalciferol (Vitamin D3) [Vitamin D3] 2,000 unit PO BID 11/27/16 Didanosine [Videx EC] 200 mg PO DAILY 11/27/16 Glipizide [Glipizide ER] 10 mg PO BID 11/27/16 Loperamide HCl [Imodium -] 2 mg PO PRN PRN 11/27/16 Melatonin 6 mg PO DAILY 11/27/16 Multivitamin with Minerals [Icaps Plus] 1 each PO DAILY 11/27/16 Ritonavir [Norvir -] 100 mg PO BID 11/27/16 [place] Fruit [Saw [place]] 450 mg PO DAILY 11/27/16 Tamsulosin HCl 0.4 mg PO DAILY 11/27/16 Vitamin B Complex 1 tab PO DAILY 11/27/16 Vitamin E 400 unit PO DAILY 11/27/16 Darunavir Ethanolate [Prezista -] 600 mg PO BID 06/07/17 Rosuvastatin [Crestor -] 10 mg PO DAILY 06/07/17 Review of Systems - Review of Systems Constitutional: reports: Diaphoresis, Lethargy, Loss of Appetite, Malaise Eyes: reports: No Symptoms HENT: reports: No Symptoms Neck: reports: No Symptoms Cardiovascular: denies: Chest Pain, Palpitations Respiratory: reports: SOB on Exertion, Wheezing Genitourinary: reports: No Symptoms Breasts: reports: No Symptoms Reported Musculoskeletal: reports: Back Pain, Muscle Weakness Integumentary: reports: No Symptoms Neurological: reports: Numbness, Parasthesia, Pre-Existing Deficit Hematology/Lymphatic: reports: No Symptoms Physical Examination Vital Signs: Vital Signs Temperature 98.4 F 06/07/17 19:52 Pulse Rate 68 06/07/17 19:52 Respiratory Rate 17 06/07/17 19:52 Blood Pressure 111/57 06/07/17 19:52 O2 Sat by Pulse Oximetry (%) 99 06/07/17 19:52 Constitutional: Yes: Well Nourished, No Distress, Calm Eyes: Yes: Conjunctiva Clear, EOM Intact HENT: Yes: Atraumatic Neck: Yes: Trachea Midline. No: Tenderness Cardiovascular: Yes: Regular Rate and Rhythm Respiratory: Yes: Regular, Cough, Rhonchi (left base). No: Accessory Muscle Use , Rales, Wheezes Gastrointestinal: Yes: Normal Bowel Sounds, Soft, Abdomen, Obese Renal/: Yes: WNL Breast(s): Yes: WNL Musculoskeletal: Yes: WNL Extremities: Yes: WNL Edema: No Peripheral Pulses: Left Radial: 2+, Right Radial: 2+, Left Doralis Pedis: 2+, Right Dorsalis Pedis: 2+, Left Femoral: 2+, Right Femoral: 2+ Neurological: Yes: Alert, Oriented, Weakness Labs: CBC, BMP 06/07/17 17:00 06/07/17 17:09 Problem List - Problems (1) Weakness generalized Code(s): R53.1 - WEAKNESS (2) Hypoxemia Code(s): R09.02 - HYPOXEMIA (3) Coronary arteriosclerosis in patient with history of previous myocardial infarction Code(s): I25.10 - ATHSCL HEART DISEASE OF [place] CORONARY ARTERY W/O ANG PCTRS; I25.2 - OLD MYOCARDIAL INFARCTION (4) Diabetes mellitus Code(s): E11.9 - TYPE 2 DIABETES MELLITUS WITHOUT COMPLICATIONS (5) HIV disease Code(s): B20 - HUMAN IMMUNODEFICIENCY VIRUS [HIV] DISEASE (6) Hyperlipemia Code(s): E78.5 - HYPERLIPIDEMIA, UNSPECIFIED (7) Peripheral neuropathy due to metabolic disorder Code(s): E88.9 - METABOLIC DISORDER, UNSPECIFIED; G99.0 - AUTONOMIC NEUROPATHY IN DISEASES CLASSIFIED ELSEWHERE (8) TIA (transient ischemic attack) Code(s): G45.9 - TRANSIENT CEREBRAL ISCHEMIC ATTACK, UNSPECIFIED Qualifiers: Transient cerebral ischemia type: unspecified Qualified Code(s): G45.9 - Transient cerebral ischemic attack, unspecified (9) CKD (chronic kidney disease) stage 2, GFR 60-89 ml/min Code(s): N18.2 - CHRONIC KIDNEY DISEASE, STAGE 2 (MILD)
[2017-06-08] MEDS: DEXTROSE 5%-0.45% SALINE 1,000 ML IV SCH ×2 (00:06→11:08)
[2017-06-08] MEDS: ALBUTEROL SO4 2.5/IPRATROPIUM 0.5 INH SOL 3 ML VIAL.NEB. NEB SCH ×6 (00:07→23:06)
[2017-06-08] MEDS ORDERED: ASPIRIN COATED 81 MG TABLET.EC ONE (00:38)
[2017-06-08] MEDS: MULTIVITAMINS THER W-MINERALS COMBO TABLET (FP) PO SCH ×2 (00:46→10:19)
[2017-06-08] MEDS: TAMSULOSIN HCL 0.4 MG CAP.ER.24H (FP) PO SCH ×2 (00:46→08:41)
[2017-06-08] MEDS: ASPIRIN COATED 81 MG TABLET.EC PO SCH ×2 (00:46→10:18)
[2017-06-08] MEDS: MELATONIN 5 MG, MELATONIN 1 MG PO SCH ×2 (00:46→21:13)
[2017-06-08] MEDS: glipiZIDE 10 MG TABLET (FP) PO SCH ×2 (06:03→17:25)
[2017-06-08 06:55] LABS: BASOPHIL 0.5 % (0-2.0); EOSINOPHIL 1.4 % (0-4.5); MCH 31.6 pg (25.7-33.7); MCHC 33.9 g/dl (32.0-35.9); MEAN CELL VOLUME 93.3 fl (80-96); MEAN PLT VOLUME 7.5 fl (7.5-11.1); NEUTROPHILS 67.5 % (42.8-82.8); PLATELET COUNT 145 K/MM3 (134-434); RDW 14.2 % (11.9-15.9); WHITE BLOOD COUNT 7.3 K/mm3 (4.0-10.0)
[2017-06-08 07:21] LABS: ALBUMIN 3.1 g/dl (3.4-5.0); AMYLASE 63 U/L (25-115); ANION GAP 8 (8-16); CALCIUM 8.1 mg/dL (8.5-10.1); CO2 28 mmol/L (21-32); GLUCOSE,RANDOM 209 mg/dL (74-106); MAGNESIUM 2.1 mg/dL (1.8-2.4)
[2017-06-08 07:26] LABS: ALK PHOS 30 U/L (45-117); BILIRUBIN,TOTAL 0.7 mg/dL (0.2-1.0); CREATININE 1.9 mg/dL (0.7-1.3); SGOT/AST 18 U/L (15-37); SGPT/ALT 30 U/L (12-78); TOT PROT 6.8 g/dl (6.4-8.2)
--- NOTE | 2017-06-08 08:34 | EKG ---
Test Reason : Blood Pressure : / mmHG Vent. Rate : 075 BPM Atrial Rate : 075 BPM P-R Int : 184 ms QRS Dur : 162 ms QT Int : 452 ms P-R-T Axes : 048 095 015 degrees QTc Int : 504 ms SINUS RHYTHM WITH FUSION COMPLEXES RIGHT BUNDLE BRANCH BLOCK T WAVE ABNORMALITY, CONSIDER INFERIOR ISCHEMIA ABNORMAL ECG WHEN COMPARED WITH ECG OF 25-AUG-2016 15:06, FUSION COMPLEXES ARE NOW PRESENT Confirmed by ARMANI WISE, LISA ([id number]) on 06/08/2017 8:34:20 AM Referred By: Confirmed By:LISA LOMELI MD
[2017-06-08] MEDS ORDERED: DIDANOSINE PO SCH (10:00)
[2017-06-08] MEDS: RITONAVIR 100 MG TABLET PO SCH ×2 (10:19→21:13)
[2017-06-08] MEDS: DARUNAVIR ETHANOLATE 600 MG TAB PO SCH ×2 (10:19→21:13)
[2017-06-08] MEDS: PANTOPRAZOLE 20 MG TABLET (FP) PO SCH (10:19)
[2017-06-08] MEDS: VITAMIN E 400 INTERNATIONAL-UNITS CAPSULE (FP) PO SCH (10:20)
[2017-06-08] MEDS: DOXYCYCLINE INJECTION 100 MG in DEXTROSE 5%-WATER - 100 ML IVPB SCH ×2 (10:20→21:12)
[2017-06-08] MEDS: CHOLECALCIFEROL (VITAMIN D3) 1,000 UNIT TABLET (FP) PO SCH ×2 (10:20→21:13)
[2017-06-08 12:39] LABS: URINE LEUK ESTERASE Negative (NEGATIVE)
--- NOTE | 2017-06-08 15:15 | PN ---
Progress Note (short form) - Note Progress Note: PULMONARY IMP HYPOXEMIA BRONCHOSPASM ACUTE BRONCHITIS HIV ASHD S/P STENTS ACUTE ON CHRONIC KIDNEY DISEASE HTN NIDDM PLAN ANTIBIOTICS PER ID O2 IVF INHALED BRONCHODILATORS CHEST CT MONITOR LYTES,RENAL FUNCTION DR CHANG Problem List - Problems (1) Bronchitis Code(s): J40 - BRONCHITIS, NOT SPECIFIED ACUTE OR CHRONIC (2) HIV disease Code(s): B20 - HUMAN IMMUNODEFICIENCY VIRUS [HIV] DISEASE (3) Hypoxemia Code(s): R09.02 - HYPOXEMIA (4) Coronary arteriosclerosis in patient with history of previous myocardial infarction Code(s): I25.10 - ATHSCL HEART DISEASE OF [place] CORONARY ARTERY W/O ANG PCTRS; I25.2 - OLD MYOCARDIAL INFARCTION (5) Diabetes mellitus Code(s): E11.9 - TYPE 2 DIABETES MELLITUS WITHOUT COMPLICATIONS (6) Bronchospasm Code(s): J98.01 - ACUTE BRONCHOSPASM (7) [id number] kidney injury Code(s): N17.9 - ACUTE KIDNEY FAILURE, UNSPECIFIED; N18.9 - CHRONIC KIDNEY DISEASE, UNSPECIFIED
[2017-06-08] MEDS ORDERED: glipiZIDE 5 MG TABLET (FP) ONE ×2 (17:23→17:24)
--- NOTE | 2017-06-08 18:00 | CONS ---
DATE OF CONSULTATION: 06/08/2017 REFERRING PHYSICIAN: Carri Brower MD The patient is a 81-year-old white male, past medical history of HIV, currently on HAART therapy, history of TIA, ASHD, status post stents x4, diabetes mellitus, hypertension, hyperlipidemia, nonsmoker, admitted to [facility] with generalized weakness and difficulty ambulating for the past 4 days. The patient states he started developing symptoms associated with rhinorrhea and chest congestion. He saw his ENT doctor, who placed him on a Z-PK. The patient had persistent rhinorrhea and cough productive of clear cloudy sputum. He denied any hemoptysis, denied any chest pains or palpitations. He said he was progressively more weak, at which time he called EMS. Prior to arriving to the ER, he had 2 episodes of emesis. In the emergency room, he was noted to be mildly hypoxic with O2 saturation 90% on room air. He was also noted to have bronchospasm. He was treated with DuoNeb with some clinical improvement. He was also noted to have elevated creatinine level. He was placed on inhaled bronchodilators, IV fluid, and antibiotic therapy, transferred up to floor for further management. He denies any history of occupational exposure. There is no history of recent travel. Past medical history, again, includes HIV, currently on HAART therapy, hypertension, diabetes, hyperlipidemia, ASHD status post stents, and TIAs. REVIEW OF SYSTEMS: No orthopnea, no PND. Positive cough. Positive nasal congestion. No chest pain, no palpitations. No shortness of breath at this time. No hemoptysis. No abdominal pain. Current medications include Ecotrin, melatonin, Protonix, Glucotrol, Vitamin D3, DuoNeb, Videx, Norvir, Prezista, doxycycline, and Imodium. PHYSICAL EXAMINATION: General: The patient is a well-developed, well-nourished male, awake, alert, in no acute distress. Vital Signs: He is currently afebrile. Blood pressure is 140/66. Respiratory rate 18. O2 saturation 96% on 2 L. HEENT: Normocephalic, atraumatic. Neck: Supple. Heart: Regular, S1, S2. Chest: Clear. Abdomen: Soft. Bowel sounds positive. Extremities: No cyanosis, edema. LABORATORY DATA: WBC 7.3, hemoglobin 12.5, hematocrit 36.9, platelet count 145,000. BUN 26, creatinine 1.9. INR is 1.12. UA is negative. Chest x-ray reveals no infiltrates, no effusions. IMPRESSION: 1. Most likely acute viral bronchitis. 2. History of human immunodeficiency virus. 3. Hypoxemia, most likely secondary to number 1. 4. Hypertension. 5. Arteriosclerotic heart disease. PLAN: Inhaled bronchodilators, supplemental O2, antibiotics as per Infectious Disease, get a chest CT to evaluate left lower lobe process to rule out possible infiltrate. Continue HAART therapy, nasal O2. QUANG CHANG M.D. [id number]
[2017-06-08] MEDS ORDERED: PT OWN MED DRAWER 7, Y5N ONE (19:25)
[2017-06-08] MEDS: ATORVASTATIN CA 20 MG TABLET (FP) PO SCH (21:12)
--- NOTE | 2017-06-08 23:18 | PN ---
Progress Note (short form) - Note Progress Note: sleeping comfortably at 2pm awaken and examined NAD / afebrile /remains so weak he "cant get out of bed" Vital Signs Period Temp Pulse Resp BP Sys/Sanchez Pulse Ox Last 24 Hr 97.9 F-99.2 F 63-82 18-20 123-154/58-75 95-100 neck supple heart S1/S2 Lungs grossly clear / mild rhonchi left base abd soft non tender ext no edema FROM CBC, BMP 06/08/17 06:37 06/08/17 06:37 Microbiology 06/07/17 17:09 Nasopharyngeal Swab Influenza Types A,B Antigen (MARQUES) - Final 06/07/17 17:09 Nasopharyngeal Swab - Final Active Medications Acetaminophen (Tylenol -) 650 mg PO Q4H PRN PRN Reason: FEVER OR PAIN Albuterol/Ipratropium (Duoneb -) 1 amp NEB QIDR [facility] Last Admin: 06/08/17 23:06 Dose: 1 amp Albuterol/Ipratropium (Duoneb -) 1 amp NEB Q4H PRN PRN Reason: SHORTNESS OF BREATH Aspirin (Ecotrin -) 81 mg PO DAILY [facility] Last Admin: 06/08/17 10:18 Dose: 81 mg Atorvastatin Calcium (Lipitor -) 20 mg PO HS [facility] Last Admin: 06/08/17 21:12 Dose: 20 mg Cholecalciferol (Vitamin D3 -) 2,000 unit PO BID [facility] Last Admin: 06/08/17 21:13 Dose: 2,000 unit Darunavir (Prezista -) 600 mg PO BID [facility] Last Admin: 06/08/17 21:13 Dose: 600 mg Didanosine (Videx -) 200 mg PO DAILY [facility] Glipizide (Glucotrol -) 10 mg PO BID@0700,1630 [facility] Last Admin: 06/08/17 17:25 Dose: 10 mg Doxycycline Hyclate 100 mg/ (Dextrose) 100 mls @ 100 mls/hr IVPB BID [facility] Last Admin: 06/08/17 21:12 Dose: 100 mls/hr Dextrose/Sodium Chloride (D5-1/2ns -) 1,000 mls @ 100 mls/hr IV ASDIR [facility] Last Admin: 06/08/17 11:08 Dose: 100 mls/hr Loperamide HCl (Imodium -) 2 mg PO Q8H PRN PRN Reason: DIARRHEA Melatonin 5 mg/ Melatonin 1 mg 6 mg PO HS [facility] Last Admin: 06/08/17 21:13 Dose: 6 mg Multivitamins/Minerals (Theragran-M) 1 each PO DAILY [facility] Last Admin: 06/08/17 10:19 Dose: 1 each Pantoprazole Sodium (Protonix -) 20 mg PO DAILY [facility] Last Admin: 06/08/17 10:19 Dose: 20 mg Ritonavir (Norvir -) 100 mg PO BID [facility] Last Admin: 06/08/17 21:13 Dose: 100 mg Tamsulosin HCl (Flomax -) 0.4 mg PO DAILY@0830 [facility] Last Admin: 06/08/17 08:41 Dose: 0.4 mg Vitamin E (Vitamin E -) 400 unit PO DAILY [facility] Last Admin: 06/08/17 10:20 Dose: 400 unit # Hypoxia Nebulizer tx / abx case discussed with Dr Alvarez CT of chest no contrast in am - PNA ? # weakness 2/2 PNA viral infectio # DM continue medications monitor FS Coverage as needed # HTN continue medications # CAD hx of [place] s/p stents X 4 # HIV Continue Meds last viral load undetected as per Dr Marks Problem List - Problems (1) Weakness generalized Code(s): R53.1 - WEAKNESS (2) Hypoxemia Code(s): R09.02 - HYPOXEMIA (3) Coronary arteriosclerosis in patient with history of previous myocardial infarction Code(s): I25.10 - ATHSCL HEART DISEASE OF [place] CORONARY ARTERY W/O ANG PCTRS; I25.2 - OLD MYOCARDIAL INFARCTION (4) Diabetes mellitus Code(s): E11.9 - TYPE 2 DIABETES MELLITUS WITHOUT COMPLICATIONS (5) HIV disease Code(s): B20 - HUMAN IMMUNODEFICIENCY VIRUS [HIV] DISEASE (6) Hyperlipemia Code(s): E78.5 - HYPERLIPIDEMIA, UNSPECIFIED (7) Peripheral neuropathy due to metabolic disorder Code(s): E88.9 - METABOLIC DISORDER, UNSPECIFIED; G99.0 - AUTONOMIC NEUROPATHY IN DISEASES CLASSIFIED ELSEWHERE (8) TIA (transient ischemic attack) Code(s): G45.9 - TRANSIENT CEREBRAL ISCHEMIC ATTACK, UNSPECIFIED Qualifiers: Transient cerebral ischemia type: unspecified Qualified Code(s): G45.9 - Transient cerebral ischemic attack, unspecified (9) CKD (chronic kidney disease) stage 2, GFR 60-89 ml/min Code(s): N18.2 - CHRONIC KIDNEY DISEASE, STAGE 2 (MILD)
[2017-06-08] MEDS: DOCUSATE SODIUM 100 MG CAPSULE (FP) PO SCH (23:34)
[2017-06-08] MEDS: FLUTICASONE PROP 0.05% 16 GM NASAL SPRAY NS SCH (23:55)
[2017-06-09] MEDS: DEXTROSE 5%-0.45% SALINE 1,000 ML IV SCH ×3 (00:20→22:10)
[2017-06-09] MEDS ORDERED: glipiZIDE 5 MG TABLET (FP) ONE (05:14)
[2017-06-09] MEDS: glipiZIDE 10 MG TABLET (FP) PO SCH ×2 (06:22→17:17)
[2017-06-09] MEDS: ALBUTEROL SO4 2.5/IPRATROPIUM 0.5 INH SOL 3 ML VIAL.NEB. NEB SCH ×3 (06:55→18:21)
[2017-06-09 07:35] LABS: BASOPHIL 0.5 % (0-2.0); MCH 31.7 pg (25.7-33.7); MEAN CELL VOLUME 93.1 fl (80-96); MEAN PLT VOLUME 7.6 fl (7.5-11.1); NEUTROPHILS 50.9 % (42.8-82.8); PLATELET COUNT 148 K/MM3 (134-434); RDW 14.3 % (11.9-15.9); WHITE BLOOD COUNT 7.5 K/mm3 (4.0-10.0)
[2017-06-09 07:44] LABS: ALBUMIN 2.8 g/dl (3.4-5.0); ANION GAP 5 (8-16); CALCIUM 7.8 mg/dL (8.5-10.1); CO2 30 mmol/L (21-32); CREATININE 1.6 mg/dL (0.7-1.3); GLUCOSE,RANDOM 165 mg/dL (74-106); MAGNESIUM 2.2 mg/dL (1.8-2.4); SGOT/AST 15 U/L (15-37); SGPT/ALT 25 U/L (12-78)
[2017-06-09 07:46] LABS: ALK PHOS 29 U/L (45-117); BILIRUBIN,TOTAL 0.8 mg/dL (0.2-1.0); TOT PROT 6.4 g/dl (6.4-8.2)
[2017-06-09] MEDS: TAMSULOSIN HCL 0.4 MG CAP.ER.24H (FP) PO SCH (08:37)
[2017-06-09] MEDS ORDERED: PT OWN MED DRAWER 7, Y5N ONE ×3 (08:52→22:04)
[2017-06-09] MEDS: FLUTICASONE PROP 0.05% 16 GM NASAL SPRAY NS SCH (09:25)
[2017-06-09] MEDS: POLYETHYLENE GLYCOL 3350 119 GM BTL PO SCH ×2 (09:25→22:09)
[2017-06-09] MEDS: MULTIVITAMINS THER W-MINERALS COMBO TABLET (FP) PO SCH (09:26)
[2017-06-09] MEDS: PANTOPRAZOLE 20 MG TABLET (FP) PO SCH (09:26)
[2017-06-09] MEDS: CHOLECALCIFEROL (VITAMIN D3) 1,000 UNIT TABLET (FP) PO SCH ×2 (09:26→22:10)
[2017-06-09] MEDS: DOXYCYCLINE INJECTION 100 MG in DEXTROSE 5%-WATER - 100 ML IVPB SCH ×2 (09:26→22:10)
[2017-06-09] MEDS: ASPIRIN COATED 81 MG TABLET.EC PO SCH (09:26)
[2017-06-09] MEDS ORDERED: POLYETHYLENE GLYCOL 3350 119 GM BTL PO SCH (10:00)
[2017-06-09] MEDS: VITAMIN E 400 INTERNATIONAL-UNITS CAPSULE (FP) PO SCH (12:15)
--- NOTE | 2017-06-09 12:50 | PN ---
Progress Note (short form) - Note Progress Note: OOB to chair. (+) Nasal congestion. No CP. Congested cough. Intake & Output 06/06/17 06/07/17 06/08/17 06/09/17 23:59 23:59 23:59 23:59 Intake Total 3230 1570 Output Total 2360 900 Balance 870 670 Weight 150 lb 147 lb Last Vital Signs Temp Pulse Resp BP Pulse Ox 97.6 F 90 20 118/60 96 06/09/17 09:36 06/09/17 11:42 06/09/17 09:36 06/09/17 09:36 06/09/17 11:42 Active Medications Acetaminophen (Tylenol -) 650 mg PO Q4H PRN PRN Reason: FEVER OR PAIN Albuterol/Ipratropium (Duoneb -) 1 amp NEB QIDR [facility] Last Admin: 06/09/17 11:41 Dose: 1 amp Albuterol/Ipratropium (Duoneb -) 1 amp NEB Q4H PRN PRN Reason: SHORTNESS OF BREATH Aspirin (Ecotrin -) 81 mg PO DAILY [facility] Last Admin: 06/09/17 09:26 Dose: 81 mg Atorvastatin Calcium (Lipitor -) 20 mg PO HS [facility] Last Admin: 06/08/17 21:12 Dose: 20 mg Cholecalciferol (Vitamin D3 -) 2,000 unit PO BID [facility] Last Admin: 06/09/17 09:26 Dose: 2,000 unit Darunavir (Prezista -) 600 mg PO BID [facility] Last Admin: 06/08/17 21:13 Dose: 600 mg Didanosine (Videx -) 200 mg PO DAILY [facility] Docusate Sodium (Colace -) 200 mg PO HS [facility] Last Admin: 06/08/17 23:34 Dose: 200 mg Fluticasone Propionate (Flonase -) 2 spray NS DAILY [facility] Last Admin: 06/09/17 09:25 Dose: 2 sprays Glipizide (Glucotrol -) 10 mg PO BID@0700,1630 [facility] Last Admin: 06/09/17 06:22 Dose: 10 mg Doxycycline Hyclate 100 mg/ (Dextrose) 100 mls @ 100 mls/hr IVPB BID [facility] Last Admin: 06/09/17 09:26 Dose: 100 mls/hr Dextrose/Sodium Chloride (D5-1/2ns -) 1,000 mls @ 100 mls/hr IV ASDIR [facility] Last Admin: 06/09/17 05:33 Dose: 100 mls/hr Loperamide HCl (Imodium -) 2 mg PO Q8H PRN PRN Reason: DIARRHEA Melatonin 5 mg/ Melatonin 1 mg 6 mg PO HS [facility] Last Admin: 06/08/17 21:13 Dose: 6 mg Multivitamins/Minerals (Theragran-M) 1 each PO DAILY [facility] Last Admin: 06/09/17 09:26 Dose: 1 each Pantoprazole Sodium (Protonix -) 20 mg PO DAILY [facility] Last Admin: 06/09/17 09:26 Dose: 20 mg Polyethylene Glycol (Miralax (For Daily Use) -) 17 gm PO BID [facility] Last Admin: 06/09/17 09:25 Dose: 17 gm Ritonavir (Norvir -) 100 mg PO BID [facility] Last Admin: 06/08/17 21:13 Dose: 100 mg Tamsulosin HCl (Flomax -) 0.4 mg PO DAILY@0830 [facility] Last Admin: 06/09/17 08:37 Dose: 0.4 mg Vitamin E (Vitamin E -) 400 unit PO DAILY [facility] Last Admin: 06/09/17 12:15 Dose: 400 unit General Appearance: Yes: NAD HEENT: positive: Pharyngeal Erythema, Other Neck: positive: Supple Respiratory/Chest: positive: Bilateral rhonchi Cardiovascular: positive: Regular Rhythm, Regular Rate, S1, S2 Gastrointestinal/Abdominal: positive: Soft. negative: Tenderness Laboratory Results - last 24 hr 06/08/17 06/09/17 06/09/17 17:21 05:32 06:10 WBC 7.5 RBC 3.82 L Hgb 12.1 Hct 35.6 MCV 93.1 MCH 31.7 MCHC 34.0 RDW 14.3 Plt Count 148 MPV 7.6 Neutrophils % 50.9 D Lymphocytes % 31.1 D Monocytes % 11.5 H Eosinophils % 6.0 H D Basophils % 0.5 Sodium Potassium Chloride Carbon Dioxide Anion Gap BUN Creatinine Creat Clearance w eGFR POC Glucometer 229 169 Random Glucose Calcium Magnesium Total Bilirubin AST ALT Alkaline Phosphatase Total Protein Albumin 06/09/17 06:10 WBC RBC Hgb Hct MCV MCH MCHC RDW Plt Count MPV Neutrophils % Lymphocytes % Monocytes % Eosinophils % Basophils % Sodium 142 Potassium 3.7 Chloride 107 Carbon Dioxide 30 Anion Gap 5 L BUN 25 H Creatinine 1.6 H Creat Clearance w eGFR 41.90 POC Glucometer Random Glucose 165 H D Calcium 7.8 L Magnesium 2.2 Total Bilirubin 0.8 AST 15 ALT 25 Alkaline Phosphatase 29 L Total Protein 6.4 Albumin 2.8 L Problem List - Problems (1) Bronchitis Code(s): J40 - BRONCHITIS, NOT SPECIFIED ACUTE OR CHRONIC (2) HIV disease Code(s): B20 - HUMAN IMMUNODEFICIENCY VIRUS [HIV] DISEASE (3) Hypoxemia Code(s): R09.02 - HYPOXEMIA (4) Coronary arteriosclerosis in patient with history of previous myocardial infarction Code(s): I25.10 - ATHSCL HEART DISEASE OF [place] CORONARY ARTERY W/O ANG PCTRS; I25.2 - OLD MYOCARDIAL INFARCTION (5) Diabetes mellitus Code(s): E11.9 - TYPE 2 DIABETES MELLITUS WITHOUT COMPLICATIONS (6) Bronchospasm Code(s): J98.01 - ACUTE BRONCHOSPASM (7) [id number] kidney injury Code(s): N17.9 - ACUTE KIDNEY FAILURE, UNSPECIFIED; N18.9 - CHRONIC KIDNEY DISEASE, UNSPECIFIED IMP HYPOXEMIA BRONCHOSPASM ACUTE BRONCHITIS HIV ASHD S/P STENTS ACUTE ON CHRONIC KIDNEY DISEASE HTN NIDDM (?) ATYPICAL PNA 6 MM NODULES: LIKELY INFLAMMATORY PLAN ANTIBIOTICS PER ID O2 IVF INHALED BRONCHODILATORS WILL NEED REPEAT CHEST CT IN 4 TO 6 WEEKS TO DOCUMENT RESOLUTION OF FINDINGS DR IBRAHIM`
[2017-06-09] MEDS: methylPREDNISolone NA SUCC 125 MG/2 ML VIAL IVPUSH SCH ×2 (13:17→22:09)
[2017-06-09] MEDS: RITONAVIR 100 MG TABLET PO SCH ×2 (15:39→22:07)
[2017-06-09] MEDS: DARUNAVIR ETHANOLATE 600 MG TAB PO SCH ×2 (15:40→22:07)
--- NOTE | 2017-06-09 19:47 | CON.ID ---
Consult Consult Specialty:: Infectious Diseases Referred by:: Dr. Brower Reason for Consultation:: HIV - History of Present Illness Chief Complaint: Weakness History of Present Illness: 81yo man with HIV (on HAART), TIA, CAD s/p 4x stents, NIDDM, HTN, HLD who presents with generalized weakness and difficulty ambulating in the setting of URI symptoms. On , pt saw his ENT due to rhinorrhea and congestion, and was started on a Z-pack. Patient reports persistent rhinorrhea and intermittent productive cough for the past few days. This morning he felt weak and reports not being able to get out of bed. 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 Cardio/Vascular: Yes: Hyperlipdemia Infectious Disease: Yes: HIV Musculoskeletal: Yes: Chronic low back pain, Osteoarthritis Endocrine: Yes: Diabetes Mellitus - Past Surgical History Past Surgical History: Yes: Carotid Endarterectomy (right) - Alcohol/Substance Use Hx Alcohol Use: No - Smoking History Smoking history: Never smoked Have you smoked in the past 12 months: No Aproximately how many cigarettes per day: 0 - Social History ADL: Independent History of Recent Travel: No Home Medications - Allergies Allergies/Adverse Reactions: Allergies Allergy/AdvReac Type Severity Reaction Status Date / Time No Known Allergies Allergy Verified 08/25/16 14:24 - Home Medications Home Medications: Ambulatory Orders Alpha Lipoic Acid 200 mg PO TID 12/17/12 Ascorbate Calcium/Bioflav [Cande-C 500 mg Tablet] 1 each PO BID 12/17/12 Aspirin [ASA -] 81 mg PO DAILY 12/17/12 Fenofibrate [Lipofen] 160 mg PO DAILY 12/17/12 Ferrous Fumarate 65 mg PO BID 12/17/12 Lamivudine [Epivir] 50 mg PO DAILY 12/17/12 Metoprolol Tartrate [Lopressor] 25 mg PO BID 12/17/12 [place]-3 Acid Ethyl Esters [Lovaza] 2 gm PO BID 12/17/12 Prasugrel Hydrochloride [Effient] 5 mg PO BID 12/17/12 Ubidecarenone [Co Q10] 15 ml PO DAILY 12/17/12 Sitagliptin Phosphate [Januvia] 25 mg PO HS 08/25/16 Calcium Citrate/Vitamin D2 [Mike-Citrate Plus Vitamin D Tab] 1 each PO DAILY Darunavir/Cobicistat [Prezcobix 800 mg-150 mg Tablet] 1 each PO DAILY 08/26/16 Active Hexose 1 tab PO QID 11/27/16 Cholecalciferol (Vitamin D3) [Vitamin D3] 2,000 unit PO BID 11/27/16 Didanosine [Videx EC] 200 mg PO DAILY 11/27/16 Glipizide [Glipizide ER] 10 mg PO BID 11/27/16 Loperamide HCl [Imodium -] 2 mg PO PRN PRN 11/27/16 Melatonin 6 mg PO DAILY 11/27/16 Multivitamin with Minerals [Icaps Plus] 1 each PO DAILY 11/27/16 Ritonavir [Norvir -] 100 mg PO BID 11/27/16 [place] Fruit [Saw [place]] 450 mg PO DAILY 11/27/16 Tamsulosin HCl 0.4 mg PO DAILY 11/27/16 Vitamin B Complex 1 tab PO DAILY 11/27/16 Vitamin E 400 unit PO DAILY 11/27/16 Darunavir Ethanolate [Prezista -] 600 mg PO BID 06/07/17 Rosuvastatin [Crestor -] 10 mg PO DAILY 06/07/17 Review of Systems - Review of Systems Constitutional: reports: Weakness Eyes: reports: No Symptoms HENT: reports: No Symptoms Neck: reports: No Symptoms Cardiovascular: denies: Chest Pain Respiratory: reports: Cough, SOB Gastrointestinal: reports: Constipation. denies: Abdominal Pain, Nausea Physical Exam Vital Signs: Vital Signs Temperature 98.3 F 06/09/17 17:14 Pulse Rate 69 06/09/17 17:14 Respiratory Rate 20 06/09/17 17:14 Blood Pressure 150/80 06/09/17 17:14 O2 Sat by Pulse Oximetry (%) 95 06/09/17 15:08 Constitutional: Yes: Thin Eyes: Yes: PERRL Neck: Yes: Supple Cardiovascular: Yes: Regular Rate and Rhythm Respiratory: Yes: Regular Gastrointestinal: Yes: Soft Labs: CBC, BMP 06/09/17 06:10 06/09/17 06:10 Problem List - Problems (1) Bronchitis Code(s): J40 - BRONCHITIS, NOT SPECIFIED ACUTE OR CHRONIC (2) CKD (chronic kidney disease) stage 2, GFR 60-89 ml/min Code(s): N18.2 - CHRONIC KIDNEY DISEASE, STAGE 2 (MILD) (3) HIV disease Code(s): B20 - HUMAN IMMUNODEFICIENCY VIRUS [HIV] DISEASE (4) Hypoxemia Code(s): R09.02 - HYPOXEMIA Assessment/Plan Patient with HIV, Bronchitis Cont Rx HIV Rx Prezcobix 1 tab q day Abacavir 300mg q day Lamivudine 100 mg q day Can give Darunavir 800 mg q day + 100 mg Ritonavir
[2017-06-09] MEDS: MELATONIN 5 MG, MELATONIN 1 MG PO SCH (22:09)
[2017-06-09] MEDS: ATORVASTATIN CA 20 MG TABLET (FP) PO SCH (22:09)
[2017-06-09] MEDS: DOCUSATE SODIUM 100 MG CAPSULE (FP) PO SCH (22:09)
--- NOTE | 2017-06-09 23:18 | PN ---
Progress Note (short form) - Note Progress Note: ambulating today feeling better --" stronger " Vital Signs Period Temp Pulse Resp BP Sys/Sanchez Pulse Ox Last 24 Hr 97.9 F-99.2 F 63-82 18-20 123-154/58-75 95-100 neck supple heart S1/S2 Lungs grossly clear / mild rhonchi left base abd soft non tender ext no edema FROM CBC, BMP 06/08/17 06:37 06/08/17 06:37 Microbiology 06/07/17 17:09 Nasopharyngeal Swab Influenza Types A,B Antigen (MARQUES) - Final 06/07/17 17:09 Nasopharyngeal Swab - Final Active Medications Abacavir Sulfate (Ziagen -) 300 mg PO BID [facility] Acetaminophen (Tylenol -) 650 mg PO Q4H PRN PRN Reason: FEVER OR PAIN Albuterol/Ipratropium (Duoneb -) 1 amp NEB QIDR [facility] Last Admin: 06/09/17 18:21 Dose: 1 amp Albuterol/Ipratropium (Duoneb -) 1 amp NEB Q4H PRN PRN Reason: SHORTNESS OF BREATH Aspirin (Ecotrin -) 81 mg PO DAILY [facility] Last Admin: 06/09/17 09:26 Dose: 81 mg Atorvastatin Calcium (Lipitor -) 20 mg PO HS [facility] Last Admin: 06/09/17 22:09 Dose: 20 mg Cholecalciferol (Vitamin D3 -) 2,000 unit PO BID [facility] Last Admin: 06/09/17 22:10 Dose: 2,000 unit Darunavir (Prezista -) 800 mg PO DAILY [facility] Docusate Sodium (Colace -) 200 mg PO HS [facility] Last Admin: 06/09/17 22:09 Dose: 200 mg Fluticasone Propionate (Flonase -) 2 spray NS DAILY [facility] Last Admin: 06/09/17 09:25 Dose: 2 sprays Glipizide (Glucotrol -) 10 mg PO BID@0700,1630 [facility] Last Admin: 06/09/17 17:17 Dose: 10 mg Doxycycline Hyclate 100 mg/ (Dextrose) 100 mls @ 100 mls/hr IVPB BID [facility] Last Admin: 06/09/17 22:10 Dose: 100 mls/hr Dextrose/Sodium Chloride (D5-1/2ns -) 1,000 mls @ 100 mls/hr IV ASDIR [facility] Last Admin: 06/09/17 22:10 Dose: 100 mls/hr Lamivudine (Epivir Oral Solution -) 100 mg PO DAILY [facility] Loperamide HCl (Imodium -) 2 mg PO Q8H PRN PRN Reason: DIARRHEA Melatonin 5 mg/ Melatonin 1 mg 6 mg PO HS [facility] Last Admin: 06/09/17 22:09 Dose: 6 mg Methylprednisolone Sodium Succinate (Solu-Medrol -) 40 mg IVPUSH BID [facility] Last Admin: 06/09/17 22:09 Dose: 40 mg Multivitamins/Minerals (Theragran-M) 1 each PO DAILY [facility] Last Admin: 06/09/17 09:26 Dose: 1 each Pantoprazole Sodium (Protonix -) 20 mg PO DAILY [facility] Last Admin: 06/09/17 09:26 Dose: 20 mg Polyethylene Glycol (Miralax (For Daily Use) -) 17 gm PO BID [facility] Last Admin: 06/09/17 22:09 Dose: 17 gm Ritonavir (Norvir -) 100 mg PO DAILY [facility] Tamsulosin HCl (Flomax -) 0.4 mg PO DAILY@0830 [facility] Last Admin: 06/09/17 08:37 Dose: 0.4 mg Vitamin E (Vitamin E -) 400 unit PO DAILY [facility] Last Admin: 06/09/17 12:15 Dose: 400 unit # Hypoxia improved Nebulizer tx / abx steroids IV per Pulmonary # Constipation Miralax / colace requesting dulcolax # weakness improving 2/2 PNA viral infection ? # DM continue medications monitor FS Coverage as needed # HTN continue medications # CAD hx of [place] s/p stents X 4 # HIV Continue Meds Id consult Dr Marks Problem List - Problems (1) Weakness generalized Code(s): R53.1 - WEAKNESS (2) Hypoxemia Code(s): R09.02 - HYPOXEMIA (3) Coronary arteriosclerosis in patient with history of previous myocardial infarction Code(s): I25.10 - ATHSCL HEART DISEASE OF [place] CORONARY ARTERY W/O ANG PCTRS; I25.2 - OLD MYOCARDIAL INFARCTION (4) Diabetes mellitus Code(s): E11.9 - TYPE 2 DIABETES MELLITUS WITHOUT COMPLICATIONS (5) HIV disease Code(s): B20 - HUMAN IMMUNODEFICIENCY VIRUS [HIV] DISEASE (6) Hyperlipemia Code(s): E78.5 - HYPERLIPIDEMIA, UNSPECIFIED (7) Peripheral neuropathy due to metabolic disorder Code(s): E88.9 - METABOLIC DISORDER, UNSPECIFIED; G99.0 - AUTONOMIC NEUROPATHY IN DISEASES CLASSIFIED ELSEWHERE (8) TIA (transient ischemic attack) Code(s): G45.9 - TRANSIENT CEREBRAL ISCHEMIC ATTACK, UNSPECIFIED Qualifiers: Transient cerebral ischemia type: unspecified Qualified Code(s): G45.9 - Transient cerebral ischemic attack, unspecified (9) CKD (chronic kidney disease) stage 2, GFR 60-89 ml/min Code(s): N18.2 - CHRONIC KIDNEY DISEASE, STAGE 2 (MILD)
[2017-06-09] MEDS ORDERED: BISACODYL 5 MG TABLET.DR (FP) PO ONE (23:26)
[2017-06-10] MEDS ORDERED: PT OWN MED DRAWER 7, Y5N ONE (02:13)
[2017-06-10] MEDS: DEXTROSE 5%-0.45% SALINE 1,000 ML IV SCH (05:23)
[2017-06-10] MEDS: ALBUTEROL SO4 2.5/IPRATROPIUM 0.5 INH SOL 3 ML VIAL.NEB. NEB SCH ×5 (06:37→23:14)
[2017-06-10 07:11] LABS: MCHC 33.6 g/dl (32.0-35.9); MEAN CELL VOLUME 92.4 fl (80-96); MEAN PLT VOLUME 7.5 fl (7.5-11.1); PLATELET COUNT 174 K/MM3 (134-434); RDW 14.2 % (11.9-15.9); WHITE BLOOD COUNT 7.4 K/mm3 (4.0-10.0)
[2017-06-10] MEDS: glipiZIDE 10 MG TABLET (FP) PO SCH ×2 (07:18→17:36)
[2017-06-10 07:25] LABS: ANION GAP 13 (8-16); CALCIUM 8.9 mg/dL (8.5-10.1); CO2 24 mmol/L (21-32); CREATININE 1.3 mg/dL (0.7-1.3); MAGNESIUM 2.2 mg/dL (1.8-2.4)
[2017-06-10 07:28] LABS: GLUCOSE,RANDOM 315 mg/dL (74-106)
[2017-06-10] MEDS: TAMSULOSIN HCL 0.4 MG CAP.ER.24H (FP) PO SCH (09:04)
[2017-06-10] MEDS: ASPIRIN COATED 81 MG TABLET.EC PO SCH (09:19)
[2017-06-10] MEDS: CHOLECALCIFEROL (VITAMIN D3) 1,000 UNIT TABLET (FP) PO SCH ×2 (09:19→21:28)
[2017-06-10] MEDS: MULTIVITAMINS THER W-MINERALS COMBO TABLET (FP) PO SCH (09:20)
[2017-06-10] MEDS: VITAMIN E 400 INTERNATIONAL-UNITS CAPSULE (FP) PO SCH (09:20)
[2017-06-10] MEDS: PANTOPRAZOLE 20 MG TABLET (FP) PO SCH (09:20)
[2017-06-10] MEDS: ABACAVIR SULFATE 300 MG TABLET PO SCH ×2 (09:21→21:30)
[2017-06-10] MEDS: RITONAVIR 100 MG TABLET PO SCH (09:22)
[2017-06-10] MEDS: lamiVUDine 10 MG/1 ML BULK BOTTLE PO SCH (09:22)
[2017-06-10] MEDS: DARUNAVIR ETHANOLATE 800 MG TAB PO SCH (09:24)
[2017-06-10] MEDS: POLYETHYLENE GLYCOL 3350 119 GM BTL PO SCH ×2 (09:24→21:29)
[2017-06-10] MEDS: methylPREDNISolone NA SUCC 125 MG/2 ML VIAL IVPUSH SCH (09:25)
[2017-06-10] MEDS: DOXYCYCLINE INJECTION 100 MG in DEXTROSE 5%-WATER - 100 ML IVPB SCH ×2 (11:15→21:34)
--- NOTE | 2017-06-10 11:39 | PN ---
Progress Note, Physician History of Present Illness: PULMONARY ALERT,FEELING BETTER,SOB IMPROVED,-CP. - Current Medication List Current Medications: Active Medications Abacavir Sulfate (Ziagen -) 300 mg PO BID [facility] Last Admin: 06/10/17 09:21 Dose: 300 mg Acetaminophen (Tylenol -) 650 mg PO Q4H PRN PRN Reason: FEVER OR PAIN Albuterol/Ipratropium (Duoneb -) 1 amp NEB QIDR [facility] Last Admin: 06/10/17 11:18 Dose: 1 amp Albuterol/Ipratropium (Duoneb -) 1 amp NEB Q4H PRN PRN Reason: SHORTNESS OF BREATH Aspirin (Ecotrin -) 81 mg PO DAILY [facility] Last Admin: 06/10/17 09:19 Dose: 81 mg Atorvastatin Calcium (Lipitor -) 20 mg PO HS [facility] Last Admin: 06/09/17 22:09 Dose: 20 mg Cholecalciferol (Vitamin D3 -) 2,000 unit PO BID [facility] Last Admin: 06/10/17 09:19 Dose: 2,000 unit Darunavir (Prezista -) 800 mg PO DAILY [facility] Last Admin: 06/10/17 09:24 Dose: 800 mg Docusate Sodium (Colace -) 200 mg PO HS [facility] Last Admin: 06/09/17 22:09 Dose: 200 mg Fluticasone Propionate (Flonase -) 2 spray NS DAILY [facility] Last Admin: 06/09/17 09:25 Dose: 2 sprays Glipizide (Glucotrol -) 10 mg PO BID@0700,1630 [facility] Last Admin: 06/10/17 07:18 Dose: 10 mg Doxycycline Hyclate 100 mg/ (Dextrose) 100 mls @ 100 mls/hr IVPB BID [facility] Last Admin: 06/10/17 11:15 Dose: 100 mls/hr Dextrose/Sodium Chloride (D5-1/2ns -) 1,000 mls @ 100 mls/hr IV ASDIR [facility] Last Admin: 06/10/17 05:23 Dose: Not Given Lamivudine (Epivir Oral Solution -) 100 mg PO DAILY [facility] Last Admin: 06/10/17 09:22 Dose: 100 mg Loperamide HCl (Imodium -) 2 mg PO Q8H PRN PRN Reason: DIARRHEA Melatonin 5 mg/ Melatonin 1 mg 6 mg PO HS [facility] Last Admin: 06/09/17 22:09 Dose: 6 mg Methylprednisolone Sodium Succinate (Solu-Medrol -) 40 mg IVPUSH BID [facility] Last Admin: 06/10/17 09:25 Dose: 40 mg Multivitamins/Minerals (Theragran-M) 1 each PO DAILY [facility] Last Admin: 06/10/17 09:20 Dose: 1 each Pantoprazole Sodium (Protonix -) 20 mg PO DAILY [facility] Last Admin: 06/10/17 09:20 Dose: 20 mg Polyethylene Glycol (Miralax (For Daily Use) -) 17 gm PO BID [facility] Last Admin: 06/10/17 09:24 Dose: 17 gm Ritonavir (Norvir -) 100 mg PO DAILY [facility] Last Admin: 06/10/17 09:22 Dose: 100 mg Tamsulosin HCl (Flomax -) 0.4 mg PO DAILY@0830 [facility] Last Admin: 06/10/17 09:04 Dose: 0.4 mg Vitamin E (Vitamin E -) 400 unit PO DAILY [facility] Last Admin: 06/10/17 09:20 Dose: 400 unit - Objective Vital Signs: Vital Signs Temperature 97.5 F L 06/10/17 06:00 Pulse Rate 86 06/10/17 10:55 Respiratory Rate 20 06/10/17 06:00 Blood Pressure 152/88 06/10/17 06:00 O2 Sat by Pulse Oximetry (%) 99 06/10/17 10:55 Constitutional: Yes: Well Nourished, Calm Eyes: Yes: WNL HENT: Yes: WNL Neck: Yes: WNL Cardiovascular: Yes: Regular Rate and Rhythm, S1, S2 Respiratory: Yes: Rhonchi (FEW SCATTERED RHONCHI) Gastrointestinal: Yes: Normal Bowel Sounds, Soft Extremities: Yes: WNL Edema: No Labs: CBC, BMP 06/10/17 06:20 06/10/17 06:20 INR, PTT INR 1.12 (0.82-1.09) 06/07/17 17:09 Problem List - Problems (1) Bronchitis Code(s): J40 - BRONCHITIS, NOT SPECIFIED ACUTE OR CHRONIC (2) HIV disease Code(s): B20 - HUMAN IMMUNODEFICIENCY VIRUS [HIV] DISEASE (3) Hypoxemia Code(s): R09.02 - HYPOXEMIA (4) Coronary arteriosclerosis in patient with history of previous myocardial infarction Code(s): I25.10 - ATHSCL HEART DISEASE OF [place] CORONARY ARTERY W/O ANG PCTRS; I25.2 - OLD MYOCARDIAL INFARCTION (5) Diabetes mellitus Code(s): E11.9 - TYPE 2 DIABETES MELLITUS WITHOUT COMPLICATIONS (6) Bronchospasm Code(s): J98.01 - ACUTE BRONCHOSPASM (7) [id number] kidney injury Code(s): N17.9 - ACUTE KIDNEY FAILURE, UNSPECIFIED; N18.9 - CHRONIC KIDNEY DISEASE, UNSPECIFIED Assessment/Plan IMP HYPOXEMIA IMPROVED BRONCHOSPASM ACUTE BRONCHITIS HIV ASHD S/P STENTS ACUTE ON CHRONIC KIDNEY DISEASE HTN NIDDM PLAN ANTIBIOTICS PER ID STEROID TAPER O2 IVF INHALED BRONCHODILATORS MONITOR LYTES,RENAL FUNCTION F/U CHEST CT OUTPATIENT 4-6WKS DR CHANG Problem List - Problems (1) Bronchitis Code(s): J40 - BRONCHITIS, NOT SPECIFIED ACUTE OR CHRONIC (2) HIV disease Code(s): B20 - HUMAN IMMUNODEFICIENCY VIRUS [HIV] DISEASE (3) Hypoxemia Code(s): R09.02 - HYPOXEMIA (4) Coronary arteriosclerosis in patient with history of previous myocardial infarction Code(s): I25.10 - ATHSCL HEART DISEASE OF [place] CORONARY ARTERY W/O ANG PCTRS; I25.2 - OLD MYOCARDIAL INFARCTION (5) Diabetes mellitus Code(s): E11.9 - TYPE 2 DIABETES MELLITUS WITHOUT COMPLICATIONS (6) Bronchospasm Code(s): J98.01 - ACUTE BRONCHOSPASM (7) [id number] kidney injury Code(s): N17.9 - ACUTE KIDNEY FAILURE, UNSPECIFIED; N18.9 - CHRONIC KIDNEY DISEASE, UNSPECIFIED
[2017-06-10] MEDS ORDERED: MAGNESIUM CITRATE 300 ML BOTTLE PO ONE (14:45)
[2017-06-10] MEDS: FLUTICASONE PROP 0.05% 16 GM NASAL SPRAY NS SCH (16:21)
[2017-06-10] MEDS ORDERED: glipiZIDE 5 MG TABLET (FP) ONE (17:17)
[2017-06-10] MEDS ORDERED: INSULIN (NOVOLOG) ASPART 100 UNITS/ML 10ML VIAL SQ ONE (18:30)
[2017-06-10] MEDS ORDERED: INSULIN (NOVOLOG) ASPART 100 UNITS/ML 10ML VIAL ONE (18:30)
[2017-06-10] MEDS: DOCUSATE SODIUM 100 MG CAPSULE (FP) PO SCH (21:27)
[2017-06-10] MEDS: ATORVASTATIN CA 20 MG TABLET (FP) PO SCH (21:28)
[2017-06-10] MEDS: MELATONIN 5 MG, MELATONIN 1 MG PO SCH (21:29)
[2017-06-10] MEDS ORDERED: SODIUM PHOSPHATE/NA BIPHOS 133 ML ENEMA RC ONE (23:45)
[2017-06-11] MEDS: DEXTROSE 5%-0.45% SALINE 1,000 ML IV SCH ×2 (00:43→10:21)
[2017-06-11] MEDS ORDERED: glipiZIDE 5 MG TABLET (FP) ONE ×2 (06:13→16:14)
[2017-06-11] MEDS: glipiZIDE 10 MG TABLET (FP) PO SCH ×2 (06:18→16:17)
[2017-06-11] MEDS: ALBUTEROL SO4 2.5/IPRATROPIUM 0.5 INH SOL 3 ML VIAL.NEB. NEB SCH ×2 (06:25→12:01)
[2017-06-11] MEDS: TAMSULOSIN HCL 0.4 MG CAP.ER.24H (FP) PO SCH (08:43)
[2017-06-11] MEDS ORDERED: PT OWN MED DRAWER 7, Y5N ONE (10:07)
[2017-06-11] MEDS: RITONAVIR 100 MG TABLET PO SCH (10:17)
[2017-06-11] MEDS: lamiVUDine 10 MG/1 ML BULK BOTTLE PO SCH (10:18)
[2017-06-11] MEDS: DARUNAVIR ETHANOLATE 800 MG TAB PO SCH (10:18)
[2017-06-11] MEDS: FLUTICASONE PROP 0.05% 16 GM NASAL SPRAY NS SCH (10:18)
[2017-06-11] MEDS: ABACAVIR SULFATE 300 MG TABLET PO SCH (10:19)
[2017-06-11] MEDS: VITAMIN E 400 INTERNATIONAL-UNITS CAPSULE (FP) PO SCH (10:19)
[2017-06-11] MEDS: ASPIRIN COATED 81 MG TABLET.EC PO SCH (10:19)
[2017-06-11] MEDS: CHOLECALCIFEROL (VITAMIN D3) 1,000 UNIT TABLET (FP) PO SCH (10:19)
[2017-06-11] MEDS: MULTIVITAMINS THER W-MINERALS COMBO TABLET (FP) PO SCH (10:19)
[2017-06-11] MEDS: PANTOPRAZOLE 20 MG TABLET (FP) PO SCH (10:19)
[2017-06-11] MEDS: POLYETHYLENE GLYCOL 3350 119 GM BTL PO SCH (10:21)
[2017-06-11] MEDS: DOXYCYCLINE INJECTION 100 MG in DEXTROSE 5%-WATER - 100 ML IVPB SCH (10:21)
[2017-06-11] MEDS ORDERED: predniSONE 20 MG TABLET (UD) PO ONE ×2 (12:09→16:00)
--- NOTE | 2017-06-11 12:09 | PN ---
Progress Note, Physician History of Present Illness: pulmonary alert,feeling better,-cp,-cough - Current Medication List Current Medications: Active Medications Abacavir Sulfate (Ziagen -) 300 mg PO BID [facility] Last Admin: 06/11/17 10:19 Dose: 300 mg Acetaminophen (Tylenol -) 650 mg PO Q4H PRN PRN Reason: FEVER OR PAIN Albuterol/Ipratropium (Duoneb -) 1 amp NEB QIDR [facility] Last Admin: 06/11/17 12:01 Dose: 1 amp Albuterol/Ipratropium (Duoneb -) 1 amp NEB Q4H PRN PRN Reason: SHORTNESS OF BREATH Aspirin (Ecotrin -) 81 mg PO DAILY [facility] Last Admin: 06/11/17 10:19 Dose: 81 mg Atorvastatin Calcium (Lipitor -) 20 mg PO HS [facility] Last Admin: 06/10/17 21:28 Dose: 20 mg Cholecalciferol (Vitamin D3 -) 2,000 unit PO BID [facility] Last Admin: 06/11/17 10:19 Dose: 2,000 unit Darunavir (Prezista -) 800 mg PO DAILY [facility] Last Admin: 06/11/17 10:18 Dose: 800 mg Docusate Sodium (Colace -) 200 mg PO HS [facility] Last Admin: 06/10/17 21:27 Dose: 200 mg Fluticasone Propionate (Flonase -) 2 spray NS DAILY [facility] Last Admin: 06/11/17 10:18 Dose: 2 sprays Glipizide (Glucotrol -) 10 mg PO BID@0700,1630 [facility] Last Admin: 06/11/17 06:18 Dose: 10 mg Doxycycline Hyclate 100 mg/ (Dextrose) 100 mls @ 100 mls/hr IVPB BID [facility] Last Admin: 06/11/17 10:21 Dose: 100 mls/hr Dextrose/Sodium Chloride (D5-1/2ns -) 1,000 mls @ 100 mls/hr IV ASDIR [facility] Last Admin: 06/11/17 10:21 Dose: 100 mls/hr Lamivudine (Epivir Oral Solution -) 100 mg PO DAILY [facility] Last Admin: 06/11/17 10:18 Dose: 100 mg Loperamide HCl (Imodium -) 2 mg PO Q8H PRN PRN Reason: DIARRHEA Melatonin 5 mg/ Melatonin 1 mg 6 mg PO HS [facility] Last Admin: 12/05/17 21:29 Dose: 6 mg Multivitamins/Minerals (Theragran-M) 1 each PO DAILY [facility] Last Admin: 06/11/17 10:19 Dose: 1 each Pantoprazole Sodium (Protonix -) 20 mg PO DAILY [facility] Last Admin: 06/11/17 10:19 Dose: 20 mg Polyethylene Glycol (Miralax (For Daily Use) -) 17 gm PO BID [facility] Last Admin: 06/11/17 10:21 Dose: Not Given Ritonavir (Norvir -) 100 mg PO DAILY [facility] Last Admin: 06/11/17 10:17 Dose: 100 mg Tamsulosin HCl (Flomax -) 0.4 mg PO DAILY@0830 [facility] Last Admin: 06/11/17 08:43 Dose: 0.4 mg Vitamin E (Vitamin E -) 400 unit PO DAILY [facility] Last Admin: 06/11/17 10:19 Dose: 400 unit - Objective Vital Signs: Vital Signs Temperature 97.3 F L 06/11/17 09:00 Pulse Rate 78 06/11/17 09:00 Respiratory Rate 20 06/11/17 09:00 Blood Pressure 162/83 06/11/17 09:00 O2 Sat by Pulse Oximetry (%) 99 06/10/17 21:00 Constitutional: Yes: Well Nourished, Calm Eyes: Yes: WNL HENT: Yes: WNL Neck: Yes: WNL Cardiovascular: Yes: Regular Rate and Rhythm, S1, S2 Respiratory: Yes: Wheezes (few scattered wheezes) Gastrointestinal: Yes: Normal Bowel Sounds, Soft Extremities: Yes: WNL Edema: No Labs: CBC, BMP Problem List - Problems (1) Bronchitis Code(s): J40 - BRONCHITIS, NOT SPECIFIED ACUTE OR CHRONIC (2) HIV disease Code(s): B20 - HUMAN IMMUNODEFICIENCY VIRUS [HIV] DISEASE (3) Hypoxemia Code(s): R09.02 - HYPOXEMIA (4) Coronary arteriosclerosis in patient with history of previous myocardial infarction Code(s): I25.10 - ATHSCL HEART DISEASE OF [place] CORONARY ARTERY W/O ANG PCTRS; I25.2 - OLD MYOCARDIAL INFARCTION (5) Diabetes mellitus Code(s): E11.9 - TYPE 2 DIABETES MELLITUS WITHOUT COMPLICATIONS (6) Bronchospasm Code(s): J98.01 - ACUTE BRONCHOSPASM (7) [id number] kidney injury Code(s): N17.9 - ACUTE KIDNEY FAILURE, UNSPECIFIED; N18.9 - CHRONIC KIDNEY DISEASE, UNSPECIFIED Assessment/Plan IMP HYPOXEMIA IMPROVED BRONCHOSPASM improving ACUTE BRONCHITIS HIV ASHD S/P STENTS ACUTE ON CHRONIC KIDNEY DISEASE HTN NIDDM PLAN ANTIBIOTICS PER ID PREDNISONE 40 MG PO DAILY WITH TAPER 5 MG EVERY 3 DAYS O2 IVF INHALED BRONCHODILATORS MONITOR LYTES,RENAL FUNCTION F/U CHEST CT OUTPATIENT 4-6WKS OUTPATIENT PULMONARY REHAB DR CHANG Problem List - Problems (1) Bronchitis Code(s): J40 - BRONCHITIS, NOT SPECIFIED ACUTE OR CHRONIC (2) HIV disease Code(s): B20 - HUMAN IMMUNODEFICIENCY VIRUS [HIV] DISEASE (3) Hypoxemia Code(s): R09.02 - HYPOXEMIA (4) Coronary arteriosclerosis in patient with history of previous myocardial infarction Code(s): I25.10 - ATHSCL HEART DISEASE OF [place] CORONARY ARTERY W/O ANG PCTRS; I25.2 - OLD MYOCARDIAL INFARCTION (5) Diabetes mellitus Code(s): E11.9 - TYPE 2 DIABETES MELLITUS WITHOUT COMPLICATIONS (6) Bronchospasm Code(s): J98.01 - ACUTE BRONCHOSPASM (7) [place]ki-pt-lmaitre kidney injury Code(s): N17.9 - ACUTE KIDNEY FAILURE, UNSPECIFIED; N18.9 - CHRONIC KIDNEY DISEASE, UNSPECIFIED
--- NOTE | 2017-06-11 12:30 | DS ---
Physical Examination Vital Signs: Vital Signs Temperature 97.3 F L 06/11/17 09:00 Pulse Rate 78 06/11/17 09:00 Respiratory Rate 20 06/11/17 09:00 Blood Pressure 162/83 06/11/17 09:00 O2 Sat by Pulse Oximetry (%) 99 06/10/17 21:00 Findings/Remarks: 81yo man with HIV (on HAART), TIA, CAD s/p 4x stents, NIDDM, HTN, HLD who presents with generalized weakness and difficulty ambulating in the setting of URI symptoms. On , pt saw his ENT due to rhinorrhea and congestion, and was started on a Z-pack. Patient reports persistent rhinorrhea and intermittent productive cough for the past few days. This morning he felt weak and reports not being able to get out of bed, and called EMS. Prior to ED arrival he also had 2x episodes of NBNB emesis. Patient treated with IV doxycycline -nebulizer & steroids / ct of chest done and pulmonary consult and follow up done and appreciated - patient referred to Pulmonary rehab / along with physical therapy --both at [facility] out patient dept. patient to go home on tapering steroids Will follow up as out patient with Dr Marks / Dr Alvarez and Myself Constitutional: Yes: Well Nourished, No Distress, Calm Eyes: Yes: WNL, Conjunctiva Clear, EOM Intact HENT: Yes: WNL, Atraumatic, Normocephalic Neck: Yes: WNL, Supple, Trachea Midline Cardiovascular: Yes: WNL, Regular Rate and Rhythm Respiratory: Yes: WNL, Regular, CTA Bilaterally Gastrointestinal: Yes: Normal Bowel Sounds, Soft. No: Tenderness Breast(s): Yes: WNL Extremities: Yes: WNL. No: Calf Tenderness Edema: No Peripheral Pulses: Left Radial: 2+, Right Radial: 2+, Left Doralis Pedis: 2+, Right Dorsalis Pedis: 2+, Left Femoral: 2+, Right Femoral: 2+ Integumentary: Yes: WNL Neurological: Yes: Alert, Oriented ...Motor Strength: WNL Psychiatric: Yes: Alert, Oriented Labs: CBC, BMP 06/10/17 06:20 06/10/17 06:20 Discharge Summary Reason For Visit: HYPOXEMIA,HUMAN IMMUNODEFICIENCY DISEASE Current Active Problems [id number] kidney injury (Acute) Bronchitis (Acute) Bronchospasm (Acute) CKD (chronic kidney disease) stage 2, GFR 60-89 ml/min (Acute) HIV disease (Acute) Hypoxemia (Acute) Weakness generalized (Acute) Condition: Improved - Instructions Diet, Activity, Other Instructions: to follow up with OUT PTE rehab at [facility] physical therapy and pulmonary rehab Referrals: Fred Marks MD [Primary Care Provider] - Viktor Alvarez MD [Staff Physician] - Carri Brower MD [Staff Physician] - Disposition: HOME - Home Medications Comprehensive Discharge Medication List: Ambulatory Orders Aspirin [ASA -] 81 mg PO DAILY 12/17/12 Fenofibrate [Lipofen] 160 mg PO DAILY 12/17/12 Ferrous Fumarate 65 mg PO BID 12/17/12 Metoprolol Tartrate [Lopressor] 25 mg PO BID 12/17/12 [place]-3 Acid Ethyl Esters [Lovaza] 2 gm PO BID 12/17/12 Ubidecarenone [Co Q10] 15 ml PO DAILY 12/17/12 Sitagliptin Phosphate [Januvia] 25 mg PO HS 08/25/16 Calcium Citrate/Vitamin D2 [Mike-Citrate Plus Vitamin D Tab] 1 each PO DAILY Cholecalciferol (Vitamin D3) [Vitamin D3] 2,000 unit PO BID 11/27/16 Glipizide [Glipizide ER] 10 mg PO BID 11/27/16 Loperamide HCl [Imodium -] 2 mg PO PRN PRN 11/27/16 Melatonin 6 mg PO DAILY 11/27/16 Multivitamin with Minerals [Icaps Plus] 1 each PO DAILY 11/27/16 Ritonavir [Norvir -] 100 mg PO BID 11/27/16 Saw [place] Fruit [Saw [place]] 450 mg PO DAILY 11/27/16 Tamsulosin HCl 0.4 mg PO DAILY 11/27/16 Vitamin B Complex 1 tab PO DAILY 11/27/16 Vitamin E 400 unit PO DAILY 11/27/16 Darunavir Ethanolate [Prezista -] 600 mg PO BID 06/07/17 Rosuvastatin [Crestor -] 10 mg PO DAILY 06/07/17
[2017-06-11 15:05] VITALS: BP 141/80; PULSE 80; TEMP 97.4
== END 2017-06-11 16:47 | disposition home or self-care (01) | DRG 202 ==
LOC: JER 16:12 → JERBED 21:28 → J5S 06-08 01:24
PROVIDERS: ADMIT Family Medicine; ATTEND Family Medicine
DX: J20.8 Acute bronchitis due to other specified organisms (principal); N17.9 Acute kidney failure, unspecified; E78.5 Hyperlipidemia, unspecified; M54.5 Low back pain; E11.42 Type 2 diabetes mellitus with diabetic polyneuropathy; M19.90 Unspecified osteoarthritis, unspecified site; I25.10 Atherosclerotic heart disease of native coronary artery without angina pectoris; R09.02 Hypoxemia; I25.2 Old myocardial infarction; K59.09 Other constipation; R53.1 Weakness; N18.2 Chronic kidney disease, stage 2 (mild); I12.9 Hypertensive chronic kidney disease with stage 1 through stage 4 chronic kidney disease, or unspecified chronic kidney disease; E11.22 Type 2 diabetes mellitus with diabetic chronic kidney disease; Z95.5 Presence of coronary angioplasty implant and graft; Z21 Asymptomatic human immunodeficiency virus [HIV] infection status; Z86.73 Personal history of transient ischemic attack (TIA), and cerebral infarction without residual deficits
CPT/HCPCS: 36415; 70450-TC; 71010-TC; 71250-TC; 80048; 80053; 81003; 81015; 82150; 82550; 83690; 83735; 84484; 85025; 85027; 85610; 87804; 93005; 93010; 94640; 94761; 97116-GP; 97161-GP; 99285-25

== ENCOUNTER 2017-06-17 17:52 | Inpatient (IN) | payer BC, OTHER ==
--- NOTE | 2017-06-17 17:59 | PDOC ---
Rapid Medical Evaluation Medical Evaluation: Allergies Allergy/AdvReac Type Severity Reaction Status Date / Time No Known Allergies Allergy Verified 06/17/17 17:59 Vital Signs Temp Pulse Resp BP Pulse Ox 101.1 F H 72 20 153/52 96 06/17/17 18:17 06/17/17 18:17 06/17/17 18:17 06/17/17 18:17 06/17/17 18:17 <Loren Castle - Last Filed: 06/17/17 21:06> Medical Evaluation: Allergies Allergy/AdvReac Type Severity Reaction Status Date / Time No Known Allergies Allergy Verified 08/25/16 14:24 06/17/17 17:58 The patient presents with a chief complaint of: weakness, vomited blood x 2, rectal bleed intermittently I have performed a brief in-person evaluation of this patient. Pertinent physical exam findings: BRB emesis approx 150ml noted in triage I have ordered the following: none, will go directly to the ED. bed 1 The patient will proceed to the ED for further evaluation. 06/17/17 17:59 06/17/17 18:00 <Kaleigh Driver - Last Filed: 06/18/17 07:51> Time Seen by Provider: 06/17/17 17:57 Discharge Disposition <Loren Castle - Last Filed: 06/17/17 21:06> <Kaleigh Driver - Last Filed: 06/18/17 07:51> - Diagnosis HIV disease, CKD (chronic kidney disease) stage 2, GFR 60-89 ml/min, Weakness generalized, Diabetes mellitus, Fever
[2017-06-17] MEDS ORDERED: PANTOPRAZOLE SODIUM 40 MG VIAL IVPB STA (18:28)
[2017-06-17] MEDS ORDERED: ONDANSETRON 4 MG/2 ML VIAL IVPB STA (18:31)
[2017-06-17] MEDS ORDERED: ACETAMINOPHEN 1000 MG/100 ML VIAL (NON FORMULARY) IVPB ONE (18:33)
[2017-06-17] MEDS ORDERED: ACETAMINOPHEN INJECTION 100 ML IVPB ONE (18:52)
[2017-06-17] MEDS ORDERED: PANTOPRAZOLE SODIUM 40 MG/100 ML BAG IVPB ONE (18:53)
[2017-06-17 18:59] LABS: BASO % 1.1 % (0-2.0); EOS % 3.6 % (0-4.5); HEMATOCRIT 40.8 % (35.4-49); HEMOGLOBIN 13.7 GM/dL (11.7-16.9); LYMPH % 15.1 % (8-40); MCH 31.3 pg (25.7-33.7); MCHC 33.7 g/dl (32.0-35.9); MEAN CELL VOLUME 92.9 fl (80-96); MEAN PLT VOLUME 7.4 fl (7.5-11.1); MONO % 8.1 % (3.8-10.2); NEUT % 72.1 % (42.8-82.8); PLATELET COUNT 207 K/MM3 (134-434); RBC 4.39 M/mm3 (4.00-5.60); RDW 14.3 % (11.9-15.9); RETICULOCYTES 1.38 % (0.5-1.5); WHITE BLOOD COUNT 13.1 K/mm3 (4.0-10.0)
[2017-06-17] MEDS ORDERED: ONDANSETRON 4 MG/2 ML VIAL ONE (19:07)
[2017-06-17 19:12] LABS: INR 1.12 (0.82-1.09); PROTHROMBIN TIME (PATIENT) 12.7 SEC (9.98-11.88)
[2017-06-17 19:32] LABS: ALBUMIN 3.1 g/dl (3.4-5.0); ALK PHOS 40 U/L (45-117); ANION GAP 9 (8-16); BILIRUBIN,TOTAL 0.6 mg/dL (0.2-1.0); BLOOD UREA NITROGEN 39 mg/dL (7-18); CALCIUM 8.5 mg/dL (8.5-10.1); CHLORIDE 99 mmol/L (98-107); CO2 28 mmol/L (21-32); CREATININE 2.1 mg/dL (0.7-1.3); GLUCOSE,RANDOM 246 mg/dL (74-106); POTASSIUM 4.2 mmol/L (3.5-5.1); SGOT/AST 17 U/L (15-37); SGPT/ALT 43 U/L (12-78); SODIUM 136 mmol/L (136-145); TOT PROT 7.1 g/dl (6.4-8.2)
--- NOTE | 2017-06-17 21:07 | PDOC ---
History of Present Illness - General History Source: Patient Exam Limitations: No Limitations - History of Present Illness Initial Comments: 06/17/17 21:41 The patient is a 81 year old male with significant history of hypertension, hyperlipidemia, DM, HIV positive, who presents to the ED complaining of diffuse abdominal discomfort, nausea, and vomiting that began this afternoon. The patient was feeling well while at [employer] when he had a sudden onset of his symptoms. He vomited dark red fluid which he initially thought to be blood, but later realized was grape juice that he drank prior to the onset of his symptoms. He also reports associated fever and generalized weakness. No focal abdominal pain. PCP: Dr. Fred Marks <Leighann Gusman - Last Filed: 06/17/17 23:27> <Loren Castle - Last Filed: 06/18/17 01:24> - General Chief Complaint: Vomiting Blood Stated Complaint: WEAKNESS Time Seen by Provider: 06/17/17 17:57 Past History <Leighann Gusman - Last Filed: 06/17/17 23:27> - Past Medical History Anemia: No Asthma: No Cardiac Disorders: Yes (CAD) CVA: Yes (TIA) COPD: No Diabetes: Yes HTN: Yes Hypercholesterolemia: Yes - Surgical History Appendectomy: No Cardiac Surgery: Yes (CARDIAC STENT) Cholecystectomy: No Neurologic Surgery: No - Immunization History Td Vaccination: (unsure) Immunization Up to Date: Yes - Suicide/Smoking/Psychosocial Hx Smoking Status: No Smoking History: Never smoked Years of Tobacco Use: 0 Have you smoked in the past 12 months: No Number of Cigarettes Smoked Daily: 0 Cigars Per Day: 0 Hx Alcohol Use: No Drug/Substance Use Hx: No Substance Use Type: None Hx Substance Use Treatment: No <Loren Castle - Last Filed: 06/18/17 01:24> - Past Medical History Allergies/Adverse Reactions: Allergies Allergy/AdvReac Type Severity Reaction Status Date / Time No Known Allergies Allergy Verified 06/17/17 17:59 Home Medications: Ambulatory Orders Alpha Lipoic Acid 200 mg PO TID 12/17/12 Ascorbate Calcium/Bioflav [Cande-C 500 mg Tablet] 1 each PO BID 12/17/12 Aspirin [ASA -] 81 mg PO DAILY 12/17/12 Fenofibrate [Lipofen] 160 mg PO DAILY 12/17/12 Ferrous Fumarate 65 mg PO BID 12/17/12 Metoprolol Tartrate [Lopressor -] 25 mg PO BID 12/17/12 [place]-3 Acid Ethyl Esters [Lovaza -] 2 gm PO BID 12/17/12 Ubidecarenone [Co Q10] 15 ml PO DAILY 12/17/12 Sitagliptin Phosphate [Januvia] 25 mg PO HS 08/25/16 Calcium Citrate/Vitamin D2 [Mike-Citrate Plus Vitamin D Tab] 1 each PO DAILY Cholecalciferol (Vitamin D3) [Vitamin D3] 2,000 unit PO BID 11/27/16 Glipizide [Glipizide ER] 10 mg PO BID 11/27/16 Loperamide HCl [Imodium -] 2 mg PO PRN PRN 11/27/16 Melatonin 6 mg PO DAILY 11/27/16 Multivitamin with Minerals [Icaps Plus] 1 each PO DAILY 11/27/16 Saw [place] Fruit [Saw [place]] 450 mg PO DAILY 11/27/16 Tamsulosin HCl 0.4 mg PO DAILY 11/27/16 Vitamin B Complex 1 tab PO DAILY 11/27/16 Vitamin E 400 unit PO DAILY 11/27/16 Rosuvastatin [Crestor -] 10 mg PO DAILY 06/07/17 Abacavir Sulfate [Ziagen -] 300 mg PO BID tablet 06/11/17 Albuterol 2.5/Ipratropium 0.5 [Duoneb -] 1 amp NEB QIDR amp 06/11/17 Aspirin Coated [Ecotrin -] 81 mg PO DAILY tablet.ec 06/11/17 Darunavir Ethanolate [Prezista -] 800 mg PO DAILY tablet 06/11/17 Docusate Sodium [Colace -] 200 mg PO HS capsule 06/11/17 Doxycycline Injection [Vibramycin Injection -] 100 mg PO BID #10 tablet Fluticasone Prop 0.05% Nasal [Flonase -] 2 spray NS DAILY spray 06/11/17 Lamivudine Oral Soln [Epivir Oral Solution -] 100 mg PO DAILY ml 06/11/17 Loperamide HCl [Imodium -] 2 mg PO Q8H PRN capsule 06/11/17 Melatonin 6 mg PO HS tab 06/11/17 Polyethylene Glycol 3350 [Miralax 119 gm Btl -] 17 gm PO BID bottle 06/11/17 Ritonavir [Norvir -] 100 mg PO DAILY tab 06/11/17 Tamsulosin HCl [Flomax -] 0.4 mg PO DAILY@0830 cap.er.24h 06/11/17 Review of Systems - Review of Systems Able to Perform ROS?: Yes Comments:: 06/17/17 21:48 GENERAL/CONSTITUTIONAL: +Fever, +generalized weakness. HEAD, EYES, EARS, NOSE AND THROAT: No change in vision. No ear pain or discharge. No sore throat. CARDIOVASCULAR: No chest pain or shortness of breath. RESPIRATORY: No cough, wheezing, or hemoptysis. GASTROINTESTINAL: +Abdominal discomfort, nausea, vomitingx3. No hematemesis. + Reported fecal incontinence. GENITOURINARY: No dysuria, frequency, or change in urination. MUSCULOSKELETAL: No joint or muscle swelling or pain. No neck or back pain. SKIN: No rash NEUROLOGIC: No headache, vertigo, loss of consciousness, or change in strength/ sensation. ENDOCRINE: No increased thirst. No abnormal weight change. HEMATOLOGIC/LYMPHATIC: No anemia, easy bleeding, or history of blood clots. ALLERGIC/IMMUNOLOGIC: No hives or skin allergy. <Leighann Gusman - Last Filed: 06/17/17 23:27> *Physical Exam - Vital Signs Last Vital Signs Temp Pulse Resp BP Pulse Ox 98.5 F 63 16 110/57 95 06/17/17 21:11 06/17/17 21:11 06/17/17 21:11 06/17/17 21:11 06/17/17 21:11 - Physical Exam Comments: 06/17/17 21:51 GENERAL: Awake, alert, and fully oriented, in no acute distress. Febrile with 101 rectal temp. HEAD: No signs of trauma EYES: PERRLA, EOMI, sclera anicteric, conjunctiva clear ENT: Auricles normal inspection, nares patent. Moist mucosa NECK: Normal ROM, supple, no JVD, or masses LUNGS: Breath sounds equal, clear to auscultation bilaterally. No wheezes, and no crackles HEART: Regular rate and rhythm, normal S1 and S2, no murmurs, rubs or gallops ABDOMEN: Soft, nontender, normoactive bowel sounds. No guarding, no rebound. No masses. +Fecal incontinence. EXTREMITIES: Normal range of motion, no edema. No clubbing or cyanosis. No cords, erythema, or tenderness NEUROLOGICAL: Alert and oriented x 3. Moves all extremities. Face is symmetric. SKIN: Warm, Dry, normal turgor, no rashes or lesions noted. <Leighann Gusman - Last Filed: 06/17/17 23:27> - Vital Signs Last Vital Signs Temp Pulse Resp BP Pulse Ox 101.1 F H 72 20 153/52 96 06/17/17 18:17 06/17/17 18:17 06/17/17 18:17 06/17/17 18:17 06/17/17 18:17 <Loren Castle - Last Filed: 06/18/17 01:24> ED Treatment Course - LABORATORY CBC & Chemistry Diagram: 06/17/17 18:50 06/17/17 18:50 - ADDITIONAL ORDERS Additional order review: Laboratory Results 06/17/17 06/17/17 06/17/17 21:05 19:00 18:50 PT with INR INR Sodium Potassium Chloride Carbon Dioxide Anion Gap BUN Creatinine Creat Clearance w eGFR Random Glucose Calcium Total Bilirubin AST ALT Alkaline Phosphatase Creatine Kinase Troponin I Total Protein Albumin Urine Color Dkyellow Urine Appearance Slcloudy Urine pH 6.0 Ur Specific [place] 1.017 Urine Protein Negative Urine Glucose (UA) 3+ H Urine Ketones Negative Urine Blood Negative Urine Nitrite Negative Urine Bilirubin Negative Urine Urobilinogen Negative Stool Occult Blood Trace Acetone, Qual Negative Blood Type Antibody Screen 06/17/17 06/17/17 06/17/17 18:50 18:50 18:50 PT with INR INR Sodium 136 Potassium 4.2 Chloride 99 Carbon Dioxide 28 Anion Gap 9 BUN 39 H D Creatinine 2.1 H D Creat Clearance w eGFR 30.62 Random Glucose 246 H D Calcium 8.5 Total Bilirubin 0.6 D AST 17 ALT 43 D Alkaline Phosphatase 40 L D Creatine Kinase 59 Troponin I < 0.02 Total Protein 7.1 Albumin 3.1 L Urine Color Urine Appearance Urine pH Ur Specific [place] Urine Protein Urine Glucose (UA) Urine Ketones Urine Blood Urine Nitrite Urine Bilirubin Urine Urobilinogen Stool Occult Blood Acetone, Qual Blood Type A POSITIVE Antibody Screen Negative 06/17/17 18:50 PT with INR 12.70 H INR 1.12 Sodium Potassium Chloride Carbon Dioxide Anion Gap BUN Creatinine Creat Clearance w eGFR Random Glucose Calcium Total Bilirubin AST ALT Alkaline Phosphatase Creatine Kinase Troponin I Total Protein Albumin Urine Color Urine Appearance Urine pH Ur Specific [place] Urine Protein Urine Glucose (UA) Urine Ketones Urine Blood Urine Nitrite Urine Bilirubin Urine Urobilinogen Stool Occult Blood Acetone, Qual Blood Type Antibody Screen 06/17/17 20:50 Influenza Types A,B Antigen (MARQUES) - Final Nasopharyngeal Swab - Final 06/17/17 18:50 RBC 4.39 MCV 92.9 MCHC 33.7 RDW 14.3 MPV 7.4 L Neutrophils % 72.1 D Lymphocytes % 15.1 D Monocytes % 8.1 Eosinophils % 3.6 Basophils % 1.1 - RADIOLOGY Radiograph Interpretation: 06/17/17 22:11 Chest x-ray, read and reviewed by Dr. Benny Villarreal, shows no evidence of acute pathology - Medications Given in the ED: ED Medications Discontinued Medications Generic Name Dose Route Start Last Admin Trade Name Freq PRN Reason Stop Dose Admin Acetaminophen 1,000 mg 06/17/17 18:33 06/17/17 19:06 Ofirmev Injection - IVPB 06/17/17 18:34 1,000 mg ONCE ONE Administration Ondansetron HCl 4 mg 06/17/17 18:31 06/17/17 19:06 Zofran Injection IVPB 06/17/17 18:32 4 mg ONCE STA Administration Pantoprazole Sodium 40 mg 06/17/17 18:28 06/17/17 19:06 Protonix Iv IVPB 06/17/17 18:29 40 mg ONCE STA Administration <Leighann Gusman - Last Filed: 06/17/17 23:27> - LABORATORY CBC & Chemistry Diagram: 06/17/17 18:50 06/17/17 18:50 - ADDITIONAL ORDERS Additional order review: Laboratory Results 06/17/17 06/17/17 06/17/17 19:00 18:50 18:50 PT with INR INR Sodium Potassium Chloride Carbon Dioxide Anion Gap BUN Creatinine Creat Clearance w eGFR Random Glucose Calcium Total Bilirubin AST ALT Alkaline Phosphatase Creatine Kinase 59 Troponin I < 0.02 Total Protein Albumin Stool Occult Blood Trace [place]et[place], Qual Negative Blood Type Antibody Screen 06/17/17 06/17/17 06/17/17 18:50 18:50 18:50 PT with INR 12.70 H INR 1.12 Sodium 136 Potassium 4.2 Chloride 99 Carbon Dioxide 28 Anion Gap 9 BUN 39 H D Creatinine 2.1 H D Creat Clearance w eGFR 30.62 Random Glucose 246 H D Calcium 8.5 Total Bilirubin 0.6 D AST 17 ALT 43 D Alkaline Phosphatase 40 L D Creatine Kinase Troponin I Total Protein 7.1 Albumin 3.1 L Stool Occult Blood Acetone, Qual Blood Type A POSITIVE Antibody Screen Negative 06/17/17 18:50 RBC 4.39 MCV 92.9 MCHC 33.7 RDW 14.3 MPV 7.4 L Neutrophils % 72.1 D Lymphocytes % 15.1 D Monocytes % 8.1 Eosinophils % 3.6 Basophils % 1.1 - RADIOLOGY Radiology Studies Ordered: Category Date Time Status CHEST X-RAY PORTABLE* [RAD] Stat Radiology 06/17/17 18:29 Completed - Medications Given in the ED: ED Medications Discontinued Medications Generic Name Dose Route Start Last Admin Trade Name Freq PRN Reason Stop Dose Admin Acetaminophen 1,000 mg 06/17/17 18:33 06/17/17 19:06 Ofirmev Injection - IVPB 06/17/17 18:34 1,000 mg ONCE ONE Administration Ondansetron HCl 4 mg 06/17/17 18:31 06/17/17 19:06 Zofran Injection IVPB 06/17/17 18:32 4 mg ONCE STA Administration Pantoprazole Sodium 40 mg 06/17/17 18:28 06/17/17 19:06 Protonix Iv IVPB 06/17/17 18:29 40 mg ONCE STA Administration <Loren Castle - Last Filed: 06/18/17 01:24> Medical Decision Making - Medical Decision Making 06/17/17 22:[address] Brower, who admits for patient's PCP Dr. Marks. 06/17/17 22:30 Call placed to patient's PCP, Dr. Fred Marks at [phone]. Awaiting callback. 06/17/17 22:[address] Marks, who would like the patient admitted to Dr. Brower. Case discussed with Dr. Brower, who agrees to admission. Pt's sister notified of admission. <Leighann Gusman - Last Filed: 06/17/17 23:27> - Medical Decision Making 06/18/17 01:22 81-year-old male brought in by ambulance from home for chills and vomiting 3. The patient states that he fell while earlier in the day before 3 PM when he was shopping, he suddenly had severe chills and then proceeded to vomit 3 times. Patient found to be febrile in the emergency department and sepsis workup was initiated Chest x-ray was negative for any infiltrates Urine did not show UTI. Patient is negative for influenza. Troponin was negative. Case is discussed with Dr. Teran who requested that we consult the patient's infectious disease doctor, Dr. Selina Marks was concerned that the patient was febrile. Patient recently finished a 10 day course of antibiotics. Patient was admitted to [facility] for further evaluation <Loren Castle - Last Filed: 06/18/17 01:24> *DC/Admit/Observation/Transfer - Attestations Scribe Attestion: 06/17/17 21:52 Documentation prepared by Leighann Gusman, acting as medical billing coder for Loren Castle MD. <Leighann Gusman - Last Filed: 06/17/17 23:27> - Discharge Dispostion Admit: Yes <Loren Castle - Last Filed: 06/18/17 01:24> Diagnosis at time of Disposition: HIV disease, CKD (chronic kidney disease) stage 2, GFR 60-89 ml/min, Weakness generalized Diabetes mellitus Qualifiers: Diabetes mellitus type: type 2 Diabetes mellitus complication status: with kidney complications Diabetes mellitus complication detail: with chronic kidney disease Diabetes mellitus custodial insulin use: without custodial use Chronic kidney disease stage: unspecified stage Qualified Code(s): E11.22 - Type 2 diabetes mellitus with diabetic chronic kidney disease Fever Qualifiers: Fever type: unspecified Qualified Code(s): R50.9 - Fever, unspecified
[2017-06-17 21:25] LABS: URINE APPEARANCE SLCLOUDY; URINE BILIRUBIN NEGATIVE (NEGATIVE); URINE BLOOD NEGATIVE (NEGATIVE); URINE COLOR DKYELLOW; URINE GLUCOSE (UA) 3+ (NEGATIVE); URINE KETONE NEGATIVE (NEGATIVE); URINE LEUK ESTERASE NEGATIVE (NEGATIVE); URINE NITRITE NEGATIVE (NEGATIVE); URINE PROTEIN NEGATIVE (NEGATIVE); URINE UROBILINOGEN NEGATIVE mg/dL (0.2-1.0)
[2017-06-17] MEDS ORDERED: SODIUM CHLORIDE 500 ML IV STA (22:28)
[2017-06-18] MEDS ORDERED: ACETAMINOPHEN 325 MG TABLET (FP) PO PRN (00:15)
[2017-06-18] MEDS ORDERED: ONDANSETRON 4 MG/2 ML VIAL IVPUSH PRN (00:32)
[2017-06-18] MEDS ORDERED: CHOLECALCIFEROL (VITAMIN D3) 1,000 UNIT TABLET (FP) PO ONE (00:48)
[2017-06-18] MEDS: DEXTROSE 5%-0.45% SALINE 1,000 ML IV SCH ×2 (01:20→11:39)
[2017-06-18] MEDS: INSULIN SLIDING SCALE (NOVOLOG) 1 VIAL SQ SCH ×4 (06:43→21:33)
[2017-06-18] MEDS: sitaGLIPtin PHOSPHATE 50 MG TABLET PO SCH (06:47)
[2017-06-18] MEDS ORDERED: sitaGLIPtin PHOSPHATE 100 MG TABLET (FP) PO SCH ×2 (07:00)
[2017-06-18 08:08] VITALS: BMI 20.5
[2017-06-18] MEDS: CHOLECALCIFEROL (VITAMIN D3) 1,000 UNIT TABLET (FP) PO SCH (10:52)
[2017-06-18] MEDS: TAMSULOSIN HCL 0.4 MG CAP.ER.24H (FP) PO SCH (10:52)
[2017-06-18] MEDS: DARUNAVIR ETHANOLATE 600 MG TAB PO SCH ×2 (10:53→21:35)
[2017-06-18] MEDS: DOCUSATE SODIUM 100 MG CAPSULE (FP) PO SCH ×2 (10:53→21:34)
[2017-06-18] MEDS: ASPIRIN COATED 81 MG TABLET.EC PO SCH (10:53)
[2017-06-18] MEDS: POLYETHYLENE GLYCOL 3350 119 GM BTL PO SCH (11:39)
--- NOTE | 2017-06-18 12:42 | EKG ---
Test Reason : Blood Pressure : / mmHG Vent. Rate : 069 BPM Atrial Rate : 069 BPM P-R Int : 178 ms QRS Dur : 162 ms QT Int : 456 ms P-R-T Axes : -27 148 -23 degrees QTc Int : 488 ms SINUS RHYTHM WITH PREMATURE ATRIAL COMPLEXES RIGHT BUNDLE BRANCH BLOCK POSSIBLE INFERIOR INFARCT , AGE UNDETERMINED ABNORMAL ECG WHEN COMPARED WITH ECG OF 07-JUN-2017 16:28, FUSION COMPLEXES ARE NO LONGER PRESENT PREMATURE ATRIAL COMPLEXES ARE NOW PRESENT QRS AXIS SHIFTED RIGHT Confirmed by ARMANI WISE, LISA ([id number]) on 06/18/2017 12:41:47 PM Referred By: Confirmed By:LISA LOMELI MD
--- NOTE | 2017-06-18 13:46 | CON.ID ---
Consult Consult Specialty:: Infectious Diseases Referred by:: Dr. Brower Reason for Consultation:: Fever - History of Present Illness Chief Complaint: Chills History of Present Illness: Patient is a 81 yr old man with HIV since the early currently on Boosted Darunavir, Lamivudine and ABC. His markers show virologic suppression. He was recently admitted for SOB and was DC on Doxycycline. He was doing well until yesterday, he developed acute onset rigors and fever. He was brought to the ED and admitted. 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[employer] OPERATIONS: Yes: Peripheral Neuropathy Cardio/Vascular: Yes: Hyperlipdemia Infectious Disease: Yes: HIV Musculoskeletal: Yes: Chronic low back pain, Osteoarthritis Endocrine: Yes: Diabetes Mellitus - Past Surgical History Past Surgical History: Yes: Carotid Endarterectomy (right) - Alcohol/Substance Use Hx Alcohol Use: No - Smoking History Smoking history: Never smoked Have you smoked in the past 12 months: No Aproximately how many cigarettes per day: 0 - Social History ADL: Independent History of Recent Travel: No Home Medications - Allergies Allergies/Adverse Reactions: Allergies Allergy/AdvReac Type Severity Reaction Status Date / Time No Known Allergies Allergy Verified 06/17/17 17:59 - Home Medications Home Medications: Ambulatory Orders Alpha Lipoic Acid 200 mg PO TID 12/17/12 Ascorbate Calcium/Bioflav [Cande-C 500 mg Tablet] 1 each PO BID 12/17/12 Aspirin [ASA -] 81 mg PO DAILY 12/17/12 Fenofibrate [Lipofen] 160 mg PO DAILY 12/17/12 Ferrous Fumarate 65 mg PO BID 12/17/12 Metoprolol Tartrate [Lopressor -] 25 mg PO BID 12/17/12 [place]-3 Acid Ethyl Esters [Lovaza -] 2 gm PO BID 12/17/12 Ubidecarenone [Co Q10] 15 ml PO DAILY 12/17/12 Sitagliptin Phosphate [Januvia] 25 mg PO HS 08/25/16 Calcium Citrate/Vitamin D2 [Mike-Citrate Plus Vitamin D Tab] 1 each PO DAILY Cholecalciferol (Vitamin D3) [Vitamin D3] 2,000 unit PO BID 11/27/16 Glipizide [Glipizide ER] 10 mg PO BID 11/27/16 Loperamide HCl [Imodium -] 2 mg PO PRN PRN 11/27/16 Melatonin 6 mg PO DAILY 11/27/16 Multivitamin with Minerals [Icaps Plus] 1 each PO DAILY 11/27/16 Saw [place] Fruit [Saw [place]] 450 mg PO DAILY 11/27/16 Tamsulosin HCl 0.4 mg PO DAILY 11/27/16 Vitamin B Complex 1 tab PO DAILY 11/27/16 Vitamin E 400 unit PO DAILY 11/27/16 Rosuvastatin [Crestor -] 10 mg PO DAILY 06/07/17 Abacavir Sulfate [Ziagen -] 300 mg PO BID tablet 06/11/17 Albuterol 2.5/Ipratropium 0.5 [Duoneb -] 1 amp NEB QIDR amp 06/11/17 Aspirin Coated [Ecotrin -] 81 mg PO DAILY tablet.ec 06/11/17 Darunavir Ethanolate [Prezista -] 800 mg PO DAILY tablet 06/11/17 Docusate Sodium [Colace -] 200 mg PO HS capsule 06/11/17 Doxycycline Injection [Vibramycin Injection -] 100 mg PO BID #10 tablet Fluticasone Prop 0.05% Nasal [Flonase -] 2 spray NS DAILY spray 06/11/17 Lamivudine Oral Soln [Epivir Oral Solution -] 100 mg PO DAILY ml 06/11/17 Loperamide HCl [Imodium -] 2 mg PO Q8H PRN capsule 06/11/17 Melatonin 6 mg PO HS tab 06/11/17 Polyethylene Glycol 3350 [Miralax 119 gm Btl -] 17 gm PO BID bottle 06/11/17 Ritonavir [Norvir -] 100 mg PO DAILY tab 06/11/17 Tamsulosin HCl [Flomax -] 0.4 mg PO DAILY@0830 cap.er.24h 06/11/17 Review of Systems - Review of Systems Constitutional: reports: Chills, Fever Cardiovascular: denies: Chest Pain Respiratory: reports: Cough, SOB Gastrointestinal: reports: Nausea, Vomiting. denies: Abdominal Pain Genitourinary: reports: No Symptoms Physical Exam Vital Signs: Vital Signs Temperature 98.6 F 06/18/17 05:30 Pulse Rate 86 06/18/17 05:30 Respiratory Rate 18 06/18/17 05:30 Blood Pressure 141/66 06/18/17 05:30 O2 Sat by Pulse Oximetry (%) 94 L 06/18/17 01:20 Constitutional: Yes: Well Nourished Eyes: Yes: PERRL HENT: Yes: Normocephalic Neck: Yes: Trachea Midline Cardiovascular: Yes: Regular Rate and Rhythm Respiratory: Yes: Cough, Rales (Bibasal rales (L) > (R)), Rhonchi Gastrointestinal: Yes: Normal Bowel Sounds, Soft. No: Tenderness Labs: CBC, BMP 06/17/17 18:50 06/17/17 18:50 Imaging - Results Chest X-ray: Report Reviewed, Image Reviewed Problem List - Problems (1) Pneumonia Code(s): J18.9 - PNEUMONIA, UNSPECIFIED ORGANISM (2) Fever Code(s): R50.9 - FEVER, UNSPECIFIED Qualifiers: Fever type: unspecified Qualified Code(s): R50.9 - Fever, unspecified (3) HIV disease Code(s): B20 - HUMAN IMMUNODEFICIENCY VIRUS [HIV] DISEASE (4) Bronchitis Code(s): J40 - BRONCHITIS, NOT SPECIFIED ACUTE OR CHRONIC Assessment/Plan Pt with Fever, Leukocytosis r/o Pneumonia - Atypical Rx Cefepime & Zithromax PO CT scan Chest ( -C) [place] c/s
[2017-06-18] MEDS ORDERED: CEFEPIME HCL 1 GM VIAL (RESTRICTED TO ID) IVPB SCH (14:00)
[2017-06-18] MEDS ORDERED: CEFEPIME 1 GM in DEXTROSE 5%-WATER - 100 ML IVPB SCH (14:15)
[2017-06-18] MEDS: AZITHROMYCIN 250 MG TABLET PO SCH (15:15)
--- NOTE | 2017-06-18 19:38 | HP ---
Admitting History and Physical - Admission Chief Complaint: rigors / fever History of Present Illness: The patient is a 81 year old male with significant history of hypertension, hyperlipidemia, DM, HIV positive, who presents to the ED complaining of rigors possibly fever accompanied by diffuse abdominal discomfort, nausea, and vomiting that began suddenly this afternoon. The patient reports episode happened suddenly while shopping for groceries. He reports vomited dark red fluid which he initially thought to be blood, but later realized was grape juice that he drank just prior. He also reports associated fever and generalized weakness. 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: Peripheral Neuropathy Cardiovascular: Yes: Hyperlipdemia Infectious Disease: Yes: HIV Musculoskeletal: Yes: Chronic low back pain, Osteoarthritis Endocrine: Yes: Diabetes Mellitus - Past Surgical History Past Surgical History: Yes: Carotid Endarterectomy (right) - Smoking History Smoking history: Never smoked Have you smoked in the past 12 months: No Aproximately how many cigarettes per day: 0 - Alcohol/Substance Use Hx Alcohol Use: No - Social History ADL: Independent History of Recent Travel: No Home Medications - Allergies Allergies/Adverse Reactions: Allergies Allergy/AdvReac Type Severity Reaction Status Date / Time No Known Allergies Allergy Verified 06/17/17 17:59 - Home Medications Home Medications: Ambulatory Orders Alpha Lipoic Acid 200 mg PO TID 12/17/12 Ascorbate Calcium/Bioflav [Cande-C 500 mg Tablet] 1 each PO BID 12/17/12 Aspirin [ASA -] 81 mg PO DAILY 12/17/12 Fenofibrate [Lipofen] 160 mg PO DAILY 12/17/12 Ferrous Fumarate 65 mg PO BID 12/17/12 Metoprolol Tartrate [Lopressor -] 25 mg PO BID 12/17/12 [place]-3 Acid Ethyl Esters [Lovaza -] 2 gm PO BID 12/17/12 Ubidecarenone [Co Q10] 15 ml PO DAILY 12/17/12 Sitagliptin Phosphate [Januvia] 25 mg PO HS 08/25/16 Calcium Citrate/Vitamin D2 [Mike-Citrate Plus Vitamin D Tab] 1 each PO DAILY Cholecalciferol (Vitamin D3) [Vitamin D3] 2,000 unit PO BID 11/27/16 Glipizide [Glipizide ER] 10 mg PO BID 11/27/16 Loperamide HCl [Imodium -] 2 mg PO PRN PRN 11/27/16 Melatonin 6 mg PO DAILY 11/27/16 Multivitamin with Minerals [Icaps Plus] 1 each PO DAILY 11/27/16 [place] Fruit [Saw [place]] 450 mg PO DAILY 11/27/16 Tamsulosin HCl 0.4 mg PO DAILY 11/27/16 Vitamin B Complex 1 tab PO DAILY 11/27/16 Vitamin E 400 unit PO DAILY 11/27/16 Rosuvastatin [Crestor -] 10 mg PO DAILY 06/07/17 Albuterol 2.5/Ipratropium 0.5 [Duoneb -] 1 amp NEB QIDR amp 06/11/17 Aspirin Coated [Ecotrin -] 81 mg PO DAILY tablet.ec 06/11/17 Darunavir Ethanolate [Prezista -] 800 mg PO DAILY tablet 06/11/17 Docusate Sodium [Colace -] 200 mg PO HS capsule 06/11/17 Doxycycline Injection [Vibramycin Injection -] 100 mg PO BID #10 tablet Fluticasone Prop 0.05% Nasal [Flonase -] 2 spray NS DAILY spray 06/11/17 Lamivudine Oral Soln [Epivir Oral Solution -] 100 mg PO DAILY ml 06/11/17 Loperamide HCl [Imodium -] 2 mg PO Q8H PRN capsule 06/11/17 Melatonin 6 mg PO HS tab 06/11/17 Polyethylene Glycol 3350 [Miralax 119 gm Btl -] 17 gm PO BID bottle 06/11/17 Ritonavir [Norvir -] 100 mg PO DAILY tab 06/11/17 Tamsulosin HCl [Flomax -] 0.4 mg PO DAILY@0830 cap.er.24h 06/11/17 Abacavir Sulfate [Ziagen -] 600 mg PO DAILY 06/18/17 Physical Examination Vital Signs: Vital Signs Temperature 98.1 F 06/18/17 15:50 Pulse Rate 68 06/18/17 15:50 Respiratory Rate 18 06/18/17 15:50 Blood Pressure 122/58 06/18/17 15:50 O2 Sat by Pulse Oximetry (%) 94 L 06/18/17 09:00 Constitutional: Yes: Well Nourished, No Distress, Calm Eyes: Yes: Conjunctiva Clear, EOM Intact HENT: Yes: Atraumatic, Normocephalic Neck: Yes: Supple, Trachea Midline Cardiovascular: Yes: Regular Rate and Rhythm Respiratory: Yes: Regular ( coarse rhonchi right>left), Cough, Rhonchi. No: Accessory Muscle Use, Dullness, SOB on Exertion Gastrointestinal: Yes: Normal Bowel Sounds, Soft Renal/: Yes: WNL Breast(s): Yes: WNL Musculoskeletal: Yes: WNL Extremities: Yes: WNL Edema: No Peripheral Pulses: Left Radial: 2+, Right Radial: 2+, Left Doralis Pedis: 2+, Right Dorsalis Pedis: 2+, Left Femoral: 2+, Right Femoral: 2+ Integumentary: Yes: WNL Neurological: Yes: WNL ...Motor Strength: WNL Psychiatric: Yes: Alert, Oriented Labs: CBC, BMP 06/17/17 18:50 06/17/17 18:50 Problem List - Problems (1) Fever Code(s): R50.9 - FEVER, UNSPECIFIED Qualifiers: Fever type: unspecified Qualified Code(s): R50.9 - Fever, unspecified (2) CKD (chronic kidney disease) stage 2, GFR 60-89 ml/min Code(s): N18.2 - CHRONIC KIDNEY DISEASE, STAGE 2 (MILD) (3) HIV disease Code(s): B20 - HUMAN IMMUNODEFICIENCY VIRUS [HIV] DISEASE (4) Diabetes mellitus Code(s): E11.9 - TYPE 2 DIABETES MELLITUS WITHOUT COMPLICATIONS Qualifiers: Diabetes mellitus type: type 2 Diabetes mellitus complication status: with kidney complications Diabetes mellitus complication detail: with chronic kidney disease Diabetes mellitus half-way insulin use: without ferry terminal agent use Chronic kidney disease stage: unspecified stage Qualified Code(s): E11.22 - Type 2 diabetes mellitus with diabetic chronic kidney disease (5) Hyperlipemia Code(s): E78.5 - HYPERLIPIDEMIA, UNSPECIFIED (6) Peripheral neuropathy due to metabolic disorder Code(s): E88.9 - METABOLIC DISORDER, UNSPECIFIED; G99.0 - AUTONOMIC NEUROPATHY IN DISEASES CLASSIFIED ELSEWHERE Assessment/Plan # fever episode of fever and rigors day of admission immunosuppresed ( +hiv / however last viral load undetected / compliant with meds) wu culture ID for abx coverage recent hosp (06/07/17)with complete RX for PNA completed tx out patient # HIV resume meds / eval per ID # DM resume Januvia FS with coverage ada diet -- once tolerated resume all DM meds # constipation colace / miralax required laxative and enema last admission
[2017-06-18] MEDS: ATORVASTATIN CA 20 MG TABLET (FP) PO SCH (21:34)
[2017-06-18] MEDS: CEFEPIME 1 GM in DEXTROSE 5%-WATER - 100 ML IVPB SCH (21:35)
[2017-06-18] MEDS: MELATONIN 5 MG, MELATONIN 1 MG PO SCH (21:35)
[2017-06-18] MEDS ORDERED: MELATONIN 5 MG TABLETS PO SCH (22:00)
[2017-06-18] MEDS ORDERED: MAGNESIUM CITRATE 300 ML BOTTLE PO ONE (22:38)
[2017-06-19] MEDS ORDERED: MAGNESIUM CITRATE 300 ML BOTTLE PO ONE (01:15)
[2017-06-19] MEDS: INSULIN SLIDING SCALE (NOVOLOG) 1 VIAL SQ SCH ×4 (06:05→22:52)
[2017-06-19] MEDS: sitaGLIPtin PHOSPHATE 50 MG TABLET PO SCH (06:07)
[2017-06-19 08:43] LABS: BASO % 0.2 % (0-2.0); HEMATOCRIT 39.3 % (35.4-49); HEMOGLOBIN 12.9 GM/dL (11.7-16.9); LYMPH % 25.2 % (8-40); MCH 30.7 pg (25.7-33.7); MCHC 32.9 g/dl (32.0-35.9); MEAN CELL VOLUME 93.5 fl (80-96); MEAN PLT VOLUME 7.9 fl (7.5-11.1); MONO % 11.3 % (3.8-10.2); NEUT % 59.3 % (42.8-82.8); PLATELET COUNT 178 K/MM3 (134-434); RDW 14.5 % (11.9-15.9)
[2017-06-19] MEDS: TAMSULOSIN HCL 0.4 MG CAP.ER.24H (FP) PO SCH (08:47)
[2017-06-19] MEDS ORDERED: PT OWN MED DRAWER 7, Y5N ONE (09:29)
[2017-06-19] MEDS: ASPIRIN COATED 81 MG TABLET.EC PO SCH (09:32)
[2017-06-19] MEDS: DOCUSATE SODIUM 100 MG CAPSULE (FP) PO SCH ×2 (09:32→22:45)
[2017-06-19] MEDS: POLYETHYLENE GLYCOL 3350 119 GM BTL PO SCH (09:33)
[2017-06-19] MEDS: DARUNAVIR ETHANOLATE 600 MG TAB PO SCH ×2 (09:33→22:52)
[2017-06-19] MEDS: AZITHROMYCIN 250 MG TABLET PO SCH (09:34)
[2017-06-19] MEDS: CEFEPIME 1 GM in DEXTROSE 5%-WATER - 100 ML IVPB SCH ×2 (09:34→22:45)
[2017-06-19] MEDS: CHOLECALCIFEROL (VITAMIN D3) 1,000 UNIT TABLET (FP) PO SCH (09:35)
[2017-06-19 09:36] LABS: ALBUMIN 2.7 g/dl (3.4-5.0); ANION GAP 9 (8-16); BILIRUBIN,TOTAL 0.5 mg/dL (0.2-1.0); BLOOD UREA NITROGEN 25 mg/dL (7-18); CALCIUM 8.4 mg/dL (8.5-10.1); CHLORIDE 103 mmol/L (98-107); CO2 27 mmol/L (21-32); CREATININE 1.6 mg/dL (0.7-1.3); GLUCOSE,RANDOM 215 mg/dL (74-106); MAGNESIUM 2.2 mg/dL (1.8-2.4); POTASSIUM 4.5 mmol/L (3.5-5.1); SGOT/AST 14 U/L (15-37); SGPT/ALT 31 U/L (12-78); SODIUM 139 mmol/L (136-145); TOT PROT 6.6 g/dl (6.4-8.2)
[2017-06-19 09:37] LABS: ALK PHOS 36 U/L (45-117)
--- NOTE | 2017-06-19 15:24 | PN ---
Progress Note (short form) - Note Progress Note: sitting up in chair c/o feeling weak / tired but appears comfortable tolerating diet well no nausea / vomiting / or GI upset c/o constipation -- no BM on colace / Miralax / citroma given last night with no results Vital Signs Period Temp Pulse Resp BP Sys/Sanchez Pulse Ox Last 24 Hr 97.9 F-99.1 F 64-68 18-20 116-137/57-62 94 neck supple heart reg S1/S2 lungs rhonchi right mid field >left good air movement abd soft non tender ext no edema / no calf tenderness CBC, BMP 06/19/17 06:00 06/19/17 06:00 Microbiology 06/17/17 21:05 Urine - Urine Clean Catch Urine Culture - Final NO GROWTH OBTAINED 06/17/17 20:50 Blood - Peripheral Venous Blood Culture - Preliminary NO GROWTH OBTAINED AFTER 24 HOURS, INCUBATION TO CONTINUE FOR 4 DAYS. 06/17/17 20:50 Blood - Peripheral Venous Blood Culture - Preliminary NO GROWTH OBTAINED AFTER 24 HOURS, INCUBATION TO CONTINUE FOR 4 DAYS. 06/17/17 20:50 Nasopharyngeal Swab Influenza Types A,B Antigen (MARQUES) - Final 06/17/17 20:50 Nasopharyngeal Swab - Final Active Medications Acetaminophen (Tylenol -) 650 mg PO Q4H PRN PRN Reason: FEVER OR PAIN Albuterol/Ipratropium (Duoneb -) 1 amp NEB QIDR [facility] Aspirin (Ecotrin -) 81 mg PO DAILY [facility] Last Admin: 06/19/17 09:32 Dose: 81 mg Atorvastatin Calcium (Lipitor -) 20 mg PO HS [facility] Last Admin: 06/18/17 21:34 Dose: 20 mg Azithromycin (Zithromax -) 500 mg PO DAILY [facility] Last Admin: 06/19/17 09:34 Dose: 500 mg Cholecalciferol (Vitamin D3 -) 2,000 unit PO DAILY [facility] Last Admin: 06/19/17 09:35 Dose: 2,000 unit Darunavir (Prezista -) 600 mg PO BID [facility] Last Admin: 06/19/17 09:33 Dose: 600 mg Docusate Sodium (Colace -) 200 mg PO BID [facility] Last Admin: 06/19/17 09:32 Dose: 200 mg Cefepime HCl 1 gm/ Dextrose 100 mls @ 200 mls/hr IVPB BID [facility] Last Admin: 06/19/17 09:34 Dose: 200 mls/hr Insulin Aspart (Novolog Vial Sliding Scale -) 1 vial SQ ACHS [facility] PRN Reason: Protocol Last Admin: 06/19/17 11:54 Dose: 2 unit Melatonin 5 mg/ Melatonin 1 mg 6 mg PO HS [facility] Last Admin: 06/18/17 21:35 Dose: 6 mg Ondansetron HCl (Zofran Injection) 4 mg IVPUSH Q4H PRN PRN Reason: NAUSEA AND/OR VOMITING Polyethylene Glycol (Miralax (For Daily Use) -) 17 gm PO DAILY [facility] Last Admin: 06/19/17 09:33 Dose: 17 grams Sitagliptin Phosphate (Januvia -) 50 mg PO DAILY@0700 [facility] Last Admin: 06/19/17 06:07 Dose: 50 mg Tamsulosin HCl (Flomax -) 0.4 mg PO DAILY@0830 [facility] Last Admin: 06/19/17 08:47 Dose: 0.4 mg # fever episode of fever and rigors day of admission immunosuppresed ( +hiv / however last viral load undetected / compliant with meds) wu culture CT of chest - infiltrate persist ID for abx coverage add neulizer treatment QID expectorant recent hosp (06/07/17)with complete RX for PNA completed tx out patient # HIV resume meds / eval per ID # DM resume Januvia FS with coverage ada diet -- once tolerated resume all DM meds # constipation colace / miralax laxative and enema ordered Problem List - Problems (1) Fever Code(s): R50.9 - FEVER, UNSPECIFIED Qualifiers: Fever type: unspecified Qualified Code(s): R50.9 - Fever, unspecified (2) CKD (chronic kidney disease) stage 2, GFR 60-89 ml/min Code(s): N18.2 - CHRONIC KIDNEY DISEASE, STAGE 2 (MILD) (3) HIV disease Code(s): B20 - HUMAN IMMUNODEFICIENCY VIRUS [HIV] DISEASE (4) Diabetes mellitus Code(s): E11.9 - TYPE 2 DIABETES MELLITUS WITHOUT COMPLICATIONS Qualifiers: Diabetes mellitus type: type 2 Diabetes mellitus complication status: with kidney complications Diabetes mellitus complication detail: with chronic kidney disease Diabetes mellitus alf insulin use: without intermediate school teacher use Chronic kidney disease stage: unspecified stage Qualified Code(s): E11.22 - Type 2 diabetes mellitus with diabetic chronic kidney disease (5) Hyperlipemia Code(s): E78.5 - HYPERLIPIDEMIA, UNSPECIFIED (6) Peripheral neuropathy due to metabolic disorder Code(s): E88.9 - METABOLIC DISORDER, UNSPECIFIED; G99.0 - AUTONOMIC NEUROPATHY IN DISEASES CLASSIFIED ELSEWHERE
[2017-06-19] MEDS ORDERED: guaiFENesin 200 MG/10 ML 10 ML UNIT-DOSE CUPS PO PRN (15:32)
[2017-06-19] MEDS: ALBUTEROL SO4 2.5/IPRATROPIUM 0.5 INH SOL 3 ML VIAL.NEB. NEB SCH ×2 (17:04→23:39)
--- NOTE | 2017-06-19 20:03 | PN ---
Progress Note, Physician History of Present Illness: Patient is a 81 yr old man with HIV since the early currently on Boosted Darunavir, Lamivudine and ABC. His markers show virologic suppression. He was recently admitted for SOB and was DC on Doxycycline. He was doing well until yesterday, he developed acute onset rigors and fever. He was brought to the ED and admitted. - Current Medication List Current Medications: Active Medications Acetaminophen (Tylenol -) 650 mg PO Q4H PRN PRN Reason: FEVER OR PAIN Albuterol/Ipratropium (Duoneb -) 1 amp NEB QIDR [facility] Last Admin: 06/19/17 17:04 Dose: 1 amp Aspirin (Ecotrin -) 81 mg PO DAILY [facility] Last Admin: 06/19/17 09:32 Dose: 81 mg Atorvastatin Calcium (Lipitor -) 20 mg PO HS [facility] Last Admin: 06/18/17 21:34 Dose: 20 mg Azithromycin (Zithromax -) 500 mg PO DAILY [facility] Last Admin: 06/19/17 09:34 Dose: 500 mg Cholecalciferol (Vitamin D3 -) 2,000 unit PO DAILY [facility] Last Admin: 06/19/17 09:35 Dose: 2,000 unit Darunavir (Prezista -) 600 mg PO BID [facility] Last Admin: 06/19/17 09:33 Dose: 600 mg Docusate Sodium (Colace -) 200 mg PO BID [facility] Last Admin: 06/19/17 09:32 Dose: 200 mg Guaifenesin (Robitussin -) 10 ml PO Q4H PRN PRN Reason: COUGH Cefepime HCl 1 gm/ Dextrose 100 mls @ 200 mls/hr IVPB BID [facility] Last Admin: 06/19/17 09:34 Dose: 200 mls/hr Insulin Aspart (Novolog Vial Sliding Scale -) 1 vial SQ ACHS [facility] PRN Reason: Protocol Last Admin: 06/19/17 17:12 Dose: 2 unit Melatonin 5 mg/ Melatonin 1 mg 6 mg PO HS [facility] Last Admin: 06/18/17 21:35 Dose: 6 mg Ondansetron HCl (Zofran Injection) 4 mg IVPUSH Q4H PRN PRN Reason: NAUSEA AND/OR VOMITING Polyethylene Glycol (Miralax (For Daily Use) -) 17 gm PO DAILY [facility] Last Admin: 06/19/17 09:33 Dose: 17 grams Potassium Phos/Sodium Phos (Phos-Nak Packet -) 1 packet PO BID [facility] Sitagliptin Phosphate (Januvia -) 50 mg PO DAILY@0700 [facility] Last Admin: 06/19/17 06:07 Dose: 50 mg Tamsulosin HCl (Flomax -) 0.4 mg PO DAILY@0830 [facility] Last Admin: 06/19/17 08:47 Dose: 0.4 mg - Objective Vital Signs: Vital Signs Temperature 97.9 F 06/19/17 16:30 Pulse Rate 69 06/19/17 16:30 Respiratory Rate 20 06/19/17 16:30 Blood Pressure 137/69 06/19/17 16:30 O2 Sat by Pulse Oximetry (%) 94 L 06/18/17 21:00 Constitutional: Yes: No Distress Neck: Yes: Supple Cardiovascular: Yes: Regular Rate and Rhythm Respiratory: Yes: Rales (Bibasal, L>R) Labs: CBC, BMP 06/19/17 06:00 06/19/17 06:00 INR, PTT INR 1.12 (0.82-1.09) 06/17/17 18:50 Problem List - Problems (1) Pneumonia Code(s): J18.9 - PNEUMONIA, UNSPECIFIED ORGANISM (2) Fever Code(s): R50.9 - FEVER, UNSPECIFIED Qualifiers: Fever type: unspecified Qualified Code(s): R50.9 - Fever, unspecified (3) HIV disease Code(s): B20 - HUMAN IMMUNODEFICIENCY VIRUS [HIV] DISEASE (4) Bronchitis Code(s): J40 - BRONCHITIS, NOT SPECIFIED ACUTE OR CHRONIC Assessment/Plan Pt with Fever, Leukocytosis r/o Pneumonia - Atypical Continue Cefepime & Zithromax PO
[2017-06-19] MEDS: NAPH,MB-DB/K PH,MBDB POWDER PACKET PO SCH (22:51)
[2017-06-19] MEDS: MELATONIN 5 MG, MELATONIN 1 MG PO SCH (22:52)
[2017-06-19] MEDS: ATORVASTATIN CA 20 MG TABLET (FP) PO SCH (22:52)
[2017-06-20] MEDS: INSULIN SLIDING SCALE (NOVOLOG) 1 VIAL SQ SCH ×4 (06:15→23:08)
[2017-06-20] MEDS: ALBUTEROL SO4 2.5/IPRATROPIUM 0.5 INH SOL 3 ML VIAL.NEB. NEB SCH ×3 (06:15→16:10)
[2017-06-20] MEDS: sitaGLIPtin PHOSPHATE 50 MG TABLET PO SCH (06:16)
[2017-06-20] MEDS: TAMSULOSIN HCL 0.4 MG CAP.ER.24H (FP) PO SCH (08:34)
[2017-06-20] MEDS ORDERED: PT OWN MED DRAWER 7, Y5N ONE (09:45)
[2017-06-20] MEDS: DOCUSATE SODIUM 100 MG CAPSULE (FP) PO SCH ×3 (09:48→23:05)
[2017-06-20] MEDS: ASPIRIN COATED 81 MG TABLET.EC PO SCH (09:48)
[2017-06-20] MEDS: POLYETHYLENE GLYCOL 3350 119 GM BTL PO SCH ×2 (09:49→10:32)
[2017-06-20] MEDS: CHOLECALCIFEROL (VITAMIN D3) 1,000 UNIT TABLET (FP) PO SCH (09:51)
[2017-06-20] MEDS: DARUNAVIR ETHANOLATE 600 MG TAB PO SCH ×2 (09:51→23:06)
[2017-06-20] MEDS: AZITHROMYCIN 250 MG TABLET PO SCH (09:51)
[2017-06-20] MEDS: NAPH,MB-DB/K PH,MBDB POWDER PACKET PO SCH ×2 (09:51→23:06)
[2017-06-20] MEDS: CEFEPIME 1 GM in DEXTROSE 5%-WATER - 100 ML IVPB SCH ×2 (09:52→23:05)
[2017-06-20] MEDS ORDERED: INSULIN (NOVOLOG) ASPART 100 UNITS/ML 10ML VIAL ONE ×2 (11:38→17:26)
--- NOTE | 2017-06-20 21:13 | PN ---
Progress Note, Physician History of Present Illness: Patient is a 81 yr old man with HIV since the early currently on Boosted Darunavir, Lamivudine and ABC. His markers show virologic suppression. He was recently admitted for SOB and was DC on Doxycycline. He was doing well until yesterday, he developed acute onset rigors and fever. He was brought to the ED and admitted. W/Up (+) Infiltrates on CT - more prominent. - Current Medication List Current Medications: Active Medications Acetaminophen (Tylenol -) 650 mg PO Q4H PRN PRN Reason: FEVER OR PAIN Albuterol/Ipratropium (Duoneb -) 1 amp NEB QIDR [facility] Last Admin: 06/20/17 16:10 Dose: 1 amp Aspirin (Ecotrin -) 81 mg PO DAILY [facility] Last Admin: 06/20/17 09:48 Dose: 81 mg Atorvastatin Calcium (Lipitor -) 20 mg PO HS [facility] Last Admin: 06/19/17 22:52 Dose: 20 mg Azithromycin (Zithromax -) 500 mg PO DAILY [facility] Last Admin: 06/20/17 09:51 Dose: 500 mg Cholecalciferol (Vitamin D3 -) 2,000 unit PO DAILY [facility] Last Admin: 06/20/17 09:51 Dose: 2,000 unit Darunavir (Prezista -) 600 mg PO BID [facility] Last Admin: 06/20/17 09:51 Dose: 600 mg Docusate Sodium (Colace -) 200 mg PO BID [facility] Last Admin: 06/20/17 10:32 Dose: Not Given Guaifenesin (Robitussin -) 10 ml PO Q4H PRN PRN Reason: COUGH Cefepime HCl 1 gm/ Dextrose 100 mls @ 200 mls/hr IVPB BID [facility] Last Admin: 06/20/17 09:52 Dose: 200 mls/hr Insulin Aspart (Novolog Vial Sliding Scale -) 1 vial SQ ACHS [facility] PRN Reason: Protocol Last Admin: 06/20/17 16:35 Dose: 4 unit Melatonin 5 mg/ Melatonin 1 mg 6 mg PO HS [facility] Last Admin: 06/19/17 22:52 Dose: 6 mg Ondansetron HCl (Zofran Injection) 4 mg IVPUSH Q4H PRN PRN Reason: NAUSEA AND/OR VOMITING Polyethylene Glycol (Miralax (For Daily Use) -) 17 gm PO DAILY [facility] Last Admin: 06/20/17 10:32 Dose: Not Given Potassium Phos/Sodium Phos (Phos-Nak Packet -) 1 packet PO BID [facility] Last Admin: 06/20/17 09:51 Dose: 1 packet Sitagliptin Phosphate (Januvia -) 50 mg PO DAILY@0700 [facility] Last Admin: 06/20/17 06:16 Dose: 50 mg Tamsulosin HCl (Flomax -) 0.4 mg PO DAILY@0830 [facility] Last Admin: 06/20/17 08:34 Dose: 0.4 mg - Objective Vital Signs: Vital Signs Temperature 98.7 F 06/20/17 16:25 Pulse Rate 85 06/20/17 16:25 Respiratory Rate 20 06/20/17 16:25 Blood Pressure 123/58 06/20/17 16:25 O2 Sat by Pulse Oximetry (%) 97 06/19/17 21:00 Constitutional: Yes: No Distress Cardiovascular: Yes: Regular Rate and Rhythm Respiratory: Yes: Rales Gastrointestinal: Yes: Normal Bowel Sounds, Soft Extremities: Yes: WNL Labs: CBC, BMP 06/19/17 06:00 06/19/17 06:00 INR, PTT INR 1.12 (0.82-1.09) 06/17/17 18:50 Problem List - Problems (1) Pneumonia Code(s): J18.9 - PNEUMONIA, UNSPECIFIED ORGANISM (2) Fever Code(s): R50.9 - FEVER, UNSPECIFIED Qualifiers: Fever type: unspecified Qualified Code(s): R50.9 - Fever, unspecified (3) HIV disease Code(s): B20 - HUMAN IMMUNODEFICIENCY VIRUS [HIV] DISEASE (4) Bronchitis Code(s): J40 - BRONCHITIS, NOT SPECIFIED ACUTE OR CHRONIC Assessment/Plan Pt with Fever, Leukocytosis r/o Pneumonia - Atypical Continue Cefepime & Zithromax PO DC Planning
[2017-06-20] MEDS: ATORVASTATIN CA 20 MG TABLET (FP) PO SCH (23:05)
[2017-06-20] MEDS: MELATONIN 5 MG, MELATONIN 1 MG PO SCH (23:06)
--- NOTE | 2017-06-20 23:06 | PN ---
Progress Note (short form) - Note Progress Note: sitting up in chair comfortable Vital Signs Period Temp Pulse Resp BP Sys/Sanchez Pulse Ox Last 24 Hr 97.9 F-99.1 F 64-68 18-20 116-137/57-62 94 neck supple heart reg S1/S2 lungs less rhonchi, no wheezing good air movement abd soft non tender ext no edema / no calf tenderness CBC, BMP 06/19/17 06:00 06/19/17 06:00 Microbiology 06/17/17 21:05 Urine - Urine Clean Catch Urine Culture - Final NO GROWTH OBTAINED 06/17/17 20:50 Blood - Peripheral Venous Blood Culture - Preliminary NO GROWTH OBTAINED AFTER 24 HOURS, INCUBATION TO CONTINUE FOR 4 DAYS. 06/17/17 20:50 Blood - Peripheral Venous Blood Culture - Preliminary NO GROWTH OBTAINED AFTER 24 HOURS, INCUBATION TO CONTINUE FOR 4 DAYS. 06/17/17 20:50 Nasopharyngeal Swab Influenza Types A,B Antigen (MARQUES) - Final 06/17/17 20:50 Nasopharyngeal Swab - Final Active Medications Acetaminophen (Tylenol -) 650 mg PO Q4H PRN PRN Reason: FEVER OR PAIN Albuterol/Ipratropium (Duoneb -) 1 amp NEB QIDR [facility] Last Admin: 06/20/17 16:10 Dose: 1 amp Aspirin (Ecotrin -) 81 mg PO DAILY [facility] Last Admin: 06/20/17 09:48 Dose: 81 mg Atorvastatin Calcium (Lipitor -) 20 mg PO HS [facility] Last Admin: 06/19/17 22:52 Dose: 20 mg Azithromycin (Zithromax -) 500 mg PO DAILY [facility] Last Admin: 06/20/17 09:51 Dose: 500 mg Cholecalciferol (Vitamin D3 -) 2,000 unit PO DAILY [facility] Last Admin: 06/20/17 09:51 Dose: 2,000 unit Darunavir (Prezista -) 600 mg PO BID [facility] Last Admin: 06/20/17 09:51 Dose: 600 mg Docusate Sodium (Colace -) 200 mg PO BID [facility] Last Admin: 06/20/17 10:32 Dose: Not Given Guaifenesin (Robitussin -) 10 ml PO Q4H PRN PRN Reason: COUGH Cefepime HCl 1 gm/ Dextrose 100 mls @ 200 mls/hr IVPB BID [facility] Last Admin: 06/20/17 09:52 Dose: 200 mls/hr Insulin Aspart (Novolog Vial Sliding Scale -) 1 vial SQ ACHS [facility] PRN Reason: Protocol Last Admin: 06/20/17 16:35 Dose: 4 unit Melatonin 5 mg/ Melatonin 1 mg 6 mg PO HS [facility] Last Admin: 06/19/17 22:52 Dose: 6 mg Ondansetron HCl (Zofran Injection) 4 mg IVPUSH Q4H PRN PRN Reason: NAUSEA AND/OR VOMITING Polyethylene Glycol (Miralax (For Daily Use) -) 17 gm PO DAILY [facility] Last Admin: 06/20/17 10:32 Dose: Not Given Potassium Phos/Sodium Phos (Phos-Nak Packet -) 1 packet PO BID [facility] Last Admin: 06/20/17 09:51 Dose: 1 packet Sitagliptin Phosphate (Januvia -) 50 mg PO DAILY@0700 [facility] Last Admin: 06/20/17 06:16 Dose: 50 mg Tamsulosin HCl (Flomax -) 0.4 mg PO DAILY@0830 [facility] Last Admin: 06/20/17 08:34 Dose: 0.4 mg # fever episode of fever and rigors day of admission immunosuppresed ( +hiv / however last viral load undetected / compliant with meds) wu culture CT of chest - infiltrate persist ID for abx coverage neulizer treatment QID expectorant recent hosp (06/07/17)with complete RX for PNA completed tx out patient # HIV continue meds / eval per ID # DM resume Januvia FS with coverage ada diet -- resume all DM meds # constipation colace / miralax resolved Problem List - Problems (1) Fever Code(s): R50.9 - FEVER, UNSPECIFIED Qualifiers: Fever type: unspecified Qualified Code(s): R50.9 - Fever, unspecified (2) CKD (chronic kidney disease) stage 2, GFR 60-89 ml/min Code(s): N18.2 - CHRONIC KIDNEY DISEASE, STAGE 2 (MILD) (3) HIV disease Code(s): B20 - HUMAN IMMUNODEFICIENCY VIRUS [HIV] DISEASE (4) Diabetes mellitus Code(s): E11.9 - TYPE 2 DIABETES MELLITUS WITHOUT COMPLICATIONS Qualifiers: Diabetes mellitus type: type 2 Diabetes mellitus complication status: with kidney complications Diabetes mellitus complication detail: with chronic kidney disease Diabetes mellitus long term acute care registered nurse insulin use: without usp use Chronic kidney disease stage: unspecified stage Qualified Code(s): E11.22 - Type 2 diabetes mellitus with diabetic chronic kidney disease (5) Hyperlipemia Code(s): E78.5 - HYPERLIPIDEMIA, UNSPECIFIED (6) Peripheral neuropathy due to metabolic disorder Code(s): E88.9 - METABOLIC DISORDER, UNSPECIFIED; G99.0 - AUTONOMIC NEUROPATHY IN DISEASES CLASSIFIED ELSEWHERE
[2017-06-21] MEDS: ALBUTEROL SO4 2.5/IPRATROPIUM 0.5 INH SOL 3 ML VIAL.NEB. NEB SCH ×3 (00:05→11:20)
[2017-06-21] MEDS: INSULIN SLIDING SCALE (NOVOLOG) 1 VIAL SQ SCH ×2 (06:21→12:14)
[2017-06-21] MEDS: sitaGLIPtin PHOSPHATE 50 MG TABLET PO SCH (06:31)
[2017-06-21] MEDS: TAMSULOSIN HCL 0.4 MG CAP.ER.24H (FP) PO SCH (09:05)
[2017-06-21] MEDS: ASPIRIN COATED 81 MG TABLET.EC PO SCH (09:30)
[2017-06-21] MEDS: DOCUSATE SODIUM 100 MG CAPSULE (FP) PO SCH (09:30)
[2017-06-21] MEDS: CEFEPIME 1 GM in DEXTROSE 5%-WATER - 100 ML IVPB SCH (09:30)
[2017-06-21] MEDS: CHOLECALCIFEROL (VITAMIN D3) 1,000 UNIT TABLET (FP) PO SCH (09:31)
[2017-06-21] MEDS: AZITHROMYCIN 250 MG TABLET PO SCH (09:31)
[2017-06-21] MEDS ORDERED: PT OWN MED DRAWER 7, Y5N ONE ×2 (09:35→12:05)
[2017-06-21] MEDS: NAPH,MB-DB/K PH,MBDB POWDER PACKET PO SCH (09:36)
[2017-06-21] MEDS: DARUNAVIR ETHANOLATE 600 MG TAB PO SCH (09:36)
[2017-06-21 11:34] VITALS: BP 138/67; PULSE 78; TEMP 97.8
[2017-06-21] MEDS ORDERED: INSULIN (NOVOLOG) ASPART 100 UNITS/ML 10ML VIAL ONE (12:18)
[2017-06-21] MEDS: POLYETHYLENE GLYCOL 3350 119 GM BTL PO SCH (12:26)
--- NOTE | 2017-06-21 13:56 | DS ---
Physical Examination Vital Signs: Vital Signs Temperature 97.8 F 06/21/17 10:00 Pulse Rate 78 06/21/17 10:00 Respiratory Rate 20 06/21/17 10:00 Blood Pressure 138/67 06/21/17 10:00 O2 Sat by Pulse Oximetry (%) 99 06/21/17 09:00 Constitutional: Yes: Well Nourished, No Distress, Calm Eyes: Yes: Conjunctiva Clear, EOM Intact HENT: Yes: Atraumatic, Normocephalic Neck: Yes: Supple, Trachea Midline Cardiovascular: Yes: Regular Rate and Rhythm Respiratory: Yes: Cough, Rhonchi (minimal scattered rhonchi grossly clear after coughing). No: SOB on Exertion, Tachypnea, Wheezes Gastrointestinal: Yes: WNL, Normal Bowel Sounds, Soft Renal/: Yes: WNL Breast(s): Yes: WNL Musculoskeletal: Yes: WNL Extremities: Yes: WNL Edema: No Peripheral Pulses WNL: Yes Peripheral Pulses: Left Radial: 2+, Right Radial: 2+, Left Doralis Pedis: 2+, Right Dorsalis Pedis: 2+, Left Femoral: 2+, Right Femoral: 2+ Integumentary: Yes: WNL Neurological: Yes: WNL ...Motor Strength: WNL Psychiatric: Yes: Alert, Oriented Labs: CBC, BMP 06/19/17 06:00 06/19/17 06:00 Discharge Summary Reason For Visit: FEVER/STAGE II CKD/HIV/WEAKNESS Current Active Problems CKD (chronic kidney disease) stage 2, GFR 60-89 ml/min (Acute) Diabetes mellitus (Acute) Fever (Acute) HIV disease (Acute) Pneumonia (Acute) Weakness generalized (Acute) Hospital Course: Patient recently hospitalized with similar complaints - full tx with doxycycline. He was admitted after sudden episode of fever and rigors. He was wu cultured -- all negative; repeat CT showed persistent infiltrate from previous admission. Case discussed with Dr Marks, who will follow him as out patient next week. Today at time of admission patient afebrile / minimal coughing / no GARCIA heart reg S1/S2 lungs grossly clear clear bilat / good air movement / improved gait and strenght on exam discussed plans for D/C and home services for next week. Understands and agrees discharge discussed with RN Condition: Improved - Instructions Referrals: Fred Marks MD [Primary Care Provider] - Carri Brower MD [Staff Physician] - Disposition: HOME - Home Medications Comprehensive Discharge Medication List: Ambulatory Orders Alpha Lipoic Acid 200 mg PO TID 12/17/12 Ascorbate Calcium/Bioflav [Cande-C 500 mg Tablet] 1 each PO BID 12/17/12 Aspirin [ASA -] 81 mg PO DAILY 12/17/12 Fenofibrate [Lipofen] 160 mg PO DAILY 12/17/12 Ferrous Fumarate 65 mg PO BID 12/17/12 Metoprolol Tartrate [Lopressor -] 25 mg PO BID 12/17/12 [place]-3 Acid Ethyl Esters [Lovaza -] 2 gm PO BID 12/17/12 Ubidecarenone [Co Q10] 15 ml PO DAILY 12/17/12 Sitagliptin Phosphate [Januvia] 25 mg PO HS 08/25/16 Calcium Citrate/Vitamin D2 [Mike-Citrate Plus Vitamin D Tab] 1 each PO DAILY Cholecalciferol (Vitamin D3) [Vitamin D3] 2,000 unit PO BID 11/27/16 Glipizide [Glipizide ER] 10 mg PO BID 11/27/16 Loperamide HCl [Imodium -] 2 mg PO PRN PRN 11/27/16 Melatonin 6 mg PO DAILY 11/27/16 Multivitamin with Minerals [Icaps Plus] 1 each PO DAILY 11/27/16 Saw [place] Fruit [Saw [place]] 450 mg PO DAILY 11/27/16 Tamsulosin HCl 0.4 mg PO DAILY 11/27/16 Vitamin B Complex 1 tab PO DAILY 11/27/16 Vitamin E 400 unit PO DAILY 11/27/16 Rosuvastatin [Crestor -] 10 mg PO DAILY 06/07/17 Albuterol 2.5/Ipratropium 0.5 [Duoneb -] 1 amp NEB QIDR amp 06/11/17 Aspirin Coated [Ecotrin -] 81 mg PO DAILY tablet.ec 06/11/17 Darunavir Ethanolate [Prezista -] 800 mg PO DAILY tablet 06/11/17 Docusate Sodium [Colace -] 200 mg PO HS capsule 06/11/17 Fluticasone Prop 0.05% Nasal [Flonase -] 2 spray NS DAILY spray 06/11/17 Lamivudine Oral Soln [Epivir Oral Solution -] 100 mg PO DAILY ml 06/11/17 Loperamide HCl [Imodium -] 2 mg PO Q8H PRN capsule 06/11/17 Melatonin 6 mg PO HS tab 06/11/17 Polyethylene Glycol 3350 [Miralax 119 gm Btl -] 17 gm PO BID bottle 06/11/17 Ritonavir [Norvir -] 100 mg PO DAILY tab 06/11/17 Tamsulosin HCl [Flomax -] 0.4 mg PO DAILY@0830 cap.er.24h 06/11/17 Abacavir Sulfate [Ziagen -] 600 mg PO DAILY 06/18/17 Melatonin 6 mg PO HS tab 06/21/17
== END 2017-06-21 15:36 | disposition home or self-care (01) | DRG 871 ==
LOC: JER 17:52 → UNDOADMIN 06-18 → JERBED 06-18 → J8W 06-18 03:39
PROVIDERS: ADMIT Family Medicine; ATTEND Family Medicine
DX: A41.9 Sepsis, unspecified organism (principal); J18.9 Pneumonia, unspecified organism; E11.9 Type 2 diabetes mellitus without complications; Z21 Asymptomatic human immunodeficiency virus [HIV] infection status; R53.1 Weakness; N18.2 Chronic kidney disease, stage 2 (mild); J40 Bronchitis, not specified as acute or chronic; D72.829 Elevated white blood cell count, unspecified; K59.00 Constipation, unspecified; E78.5 Hyperlipidemia, unspecified; R50.9 Fever, unspecified
CPT/HCPCS: 36415; 71010-TC; 71250-TC; 80053; 81003; 82009; 82272; 82550; 83605; 83735; 84100; 84484; 85025; 85044; 85610; 86850; 86900; 86901; 87040; 87086; 87804; 93005; 93010; 94640; 97116-GP; 99284-25

== ENCOUNTER 2018-03-21 17:31 | Emergency (ER) | payer OTHER ==
[2018-03-21 17:36] VITALS: BMI 21.4
--- NOTE | 2018-03-21 18:44 | PDOC ---
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 Patient states he has had trouble falling asleep due to mucous in his nostrils and admits to chills and lethargy but denies ear pain, sore throat, body aches, SOB, CP, n/v, or recent changes in bowel or bladder functions. 03/21/18 21:20 Patients family member states the patient was recently around his daughter who has a cold and pink eye Past History - Past Medical History Allergies/Adverse Reactions: Allergies Allergy/AdvReac Type Severity Reaction Status Date / Time No Known Allergies Allergy Verified 03/21/18 17:36 Home Medications: Ambulatory Orders Alpha Lipoic Acid 200 mg PO TID 12/17/12 Ascorbate Calcium/Bioflav [Cande-C 500 mg Tablet] 1 each PO BID 12/17/12 Aspirin [ASA -] 81 mg PO DAILY 12/17/12 Fenofibrate [Lipofen] 160 mg PO DAILY 12/17/12 Ferrous Fumarate 65 mg PO BID 12/17/12 Metoprolol Tartrate [Lopressor -] 25 mg PO BID 12/17/12 [place]-3 Acid Ethyl Esters [Lovaza -] 2 gm PO BID 12/17/12 Ubidecarenone [Co Q-10] 15 ml PO DAILY 12/17/12 Sitagliptin Phosphate [Januvia] 25 mg PO HS 08/25/16 Cholecalciferol (Vitamin D3) [Vitamin D3] 2,000 unit PO BID 11/27/16 Glipizide [Glipizide ER] 10 mg PO BID 11/27/16 Loperamide HCl [Imodium -] 2 mg PO PRN PRN 11/27/16 Multivitamin with Minerals [Icaps Plus] 1 each PO DAILY 11/27/16 Saw [place] Fruit [Saw [place]] 450 mg PO DAILY 11/27/16 Vitamin B Complex 1 tab PO DAILY 11/27/16 Vitamin E 400 unit PO DAILY 11/27/16 Rosuvastatin [Crestor -] 10 mg PO DAILY 06/07/17 Albuterol 2.5/Ipratropium 0.5 [Duoneb -] 1 amp NEB QIDR amp 06/11/17 Lamivudine Oral Soln [Epivir Oral Solution -] 100 mg PO DAILY ml 06/11/17 Abacavir Sulfate [Ziagen -] 600 mg PO DAILY 06/18/17 Melatonin 6 mg PO HS tab 06/21/17 Azithromycin [Zithromax Tri-Deejay (3 DAYS) -] 500 mg PO DAILY #3 tablet 03/21/18 Clopidogrel Bisulfate [Plavix] 75 mg PO DAILY 03/21/18 Fluticasone Prop 0.05% Nasal [Flonase -] 1 - 2 spray NS DAILY #1 spray.pump Anemia: No Asthma: No Cardiac Disorders: Yes (CAD) CVA: Yes (TIA) COPD: No DVT: No Diabetes: Yes HTN: Yes Hypercholesterolemia: Yes - Surgical History Abdominal Surgery: Yes (ANAL FISSURE) Appendectomy: No Cardiac Surgery: Yes (CARDIAC STENT) Cholecystectomy: No Neurologic Surgery: No - Immunization History Td Vaccination: (unsure) Immunization Up to Date: Yes - Suicide/Smoking/Psychosocial Hx Smoking Status: No Smoking History: Never smoked Years of Tobacco Use: 0 Have you smoked in the past 12 months: No Number of Cigarettes Smoked Daily: 0 Cigars Per Day: 0 Hx Alcohol Use: No Drug/Substance Use Hx: No Substance Use Type: None Hx Substance Use Treatment: No Review of Systems - Review of Systems Constitutional: Yes: Chills. No: Fever HEENTM: Yes: Nose Congestion, Other (eye drainage). No: Ear Pain, Ear Discharge Respiratory: Yes: Cough (clear sputum). No: Orthopnea, Shortness of Breath, SOB with Exertion Cardiac (ROS): No: Chest Pain, Edema, Lightheadedness, Palpitations ABD/GI: No: Abdominal Distended, Constipated, Diarrhea, Nausea, Vomiting, Abdominal cramping : Yes: Frequency. No: Burning, Dysuria Neurological: No: Headache *Physical Exam - Vital Signs Last Vital Signs Temp Pulse Resp BP Pulse Ox 98 F 64 18 103/56 96 03/21/18 17:33 03/21/18 17:33 03/21/18 17:33 03/21/18 17:33 03/21/18 17:33 - Physical Exam General Appearance: Yes: Nourished, Appropriately Dressed. No: Apparent Distress HEENT: positive: EOMI, Rhinorrhea, Other (clear drainage from the eye). negative: Pale Conjunctivae Neck: negative: Lymphadenopathy (R), Lymphadenopathy (L) Respiratory/Chest: positive: Crackles (diffuse). negative: Lungs Clear, Respiratory Distress, Accessory Muscle Use, Rales, Wheezing Cardiovascular: positive: Regular Rhythm, Regular Rate, S1, S2. negative: Edema , JVD, Murmur Vascular Pulses: Dorsalis-Pedis (R): 3+, Doralis-Pedis (L): 3+ Gastrointestinal/Abdominal: positive: Normal Bowel Sounds, Flat, Soft. negative : Tender, Pulsatile Mass, Distended, Guarding, Rebound Musculoskeletal: positive: Normal Inspection Extremity: positive: Normal Capillary Refill Integumentary: positive: Normal Color, Dry, Warm Neurologic: positive: Fully Oriented, Alert, Normal Mood/Affect ED Treatment Course - LABORATORY CBC & Chemistry Diagram: 03/21/18 19:45 03/21/18 19:45 Medical Decision Making - Medical Decision Making 03/21/18 21:10 82 yo male pmh of HIV presents to the ED with nasal congestion and a cough with clear sputum for 2 days. Denies SOB, CP, F, N/V but abmits to chills. Sick contact diagnosed with a cold and pink eye recently. Due to pmh septic work up done. Overall insignificant. [facility] Marks in [place] normal range for this patient at 2.2. patient will be sent home on Z pack and flonase due to length of symptoms. Follow up with Dr. Marks *DC/Admit/Observation/Transfer Diagnosis at time of Disposition: Upper respiratory infection, viral - Discharge Dispostion Disposition: HOME Condition at time of disposition: Stable Decision to Admit order: No - Referrals Referrals: Fred Marks MD [Staff Physician] - - Patient Instructions Printed Discharge Instructions: DI for Viral Upper Respiratory Infection -- Adult Additional Instructions: Please make appointment within the next [address] Marks. Return to the Emergency Room if you have trouble breathing, high fevers, cough up green or yellow sputum of have chest pain. Please take medications as prescribed. Thank you - Post Discharge Activity
[2018-03-21 19:58] LABS: VENOUS PH 7.35 (7.32-7.42)
[2018-03-21 19:58] LABS: BASO % 0.6 % (0-2.0); EOS % 5.9 % (0-4.5); HEMATOCRIT 40.7 % (35.4-49); HEMOGLOBIN 13.8 GM/dL (11.7-16.9); LYMPH % 36.4 % (8-40); MCH 32.6 pg (25.7-33.7); MCHC 33.8 g/dl (32.0-35.9); MEAN CELL VOLUME 96.2 fl (80-96); MEAN PLT VOLUME 7.6 fl (7.5-11.1); MONO % 11.8 % (3.8-10.2); NEUT % 45.3 % (42.8-82.8); PLATELET COUNT 166 K/MM3 (134-434); RBC 4.24 M/mm3 (4.00-5.60); RDW 15.3 % (11.9-15.9); WHITE BLOOD COUNT 6.9 K/mm3 (4.0-10.0)
[2018-03-21 19:59] LABS: VENOUS PC02 58.1 mmHg (38-52)
[2018-03-21 20:01] LABS: VENOUS PO2 17.6 mmHg (28-48)
[2018-03-21 20:09] LABS: INR 1.03 (0.83-1.09); PROTHROMBIN TIME (PATIENT) 11.6 SEC (9.7-13.0)
[2018-03-21 20:12] LABS: ACTIVATED PTT 31.1 SECONDS (25.2-36.5)
[2018-03-21 20:28] LABS: ALBUMIN 3.7 g/dl (3.4-5.0); ALK PHOS 33 U/L (45-117); ANION GAP 10 MMOL/L (8-16); BILIRUBIN,TOTAL 0.6 mg/dL (0.2-1.0); BLOOD UREA NITROGEN 28 mg/dL (7-18); CALCIUM 9.4 mg/dL (8.5-10.1); CHLORIDE 99 mmol/L (98-107); CO2 29 mmol/L (21-32); CREATININE 2.2 mg/dL (0.55-1.3); GLUCOSE,RANDOM 169 mg/dL (74-106); POTASSIUM 4.3 mmol/L (3.5-5.1); SGOT/AST 24 U/L (15-37); SGPT/ALT 33 U/L (13-61); SODIUM 138 mmol/L (136-145); TOT PROT 8.2 g/dl (6.4-8.2)
[2018-03-21] MEDS ORDERED: SODIUM CHLORIDE 1,000 ML IV STA (20:39)
[2018-03-21 20:52] LABS: URINE APPEARANCE CLEAR; URINE BILIRUBIN NEGATIVE (<2.0 mg/dL); URINE COLOR LTYELLOW; URINE GLUCOSE (UA) 1+ (NEGATIVE); URINE KETONE NEGATIVE (NEGATIVE); URINE LEUK ESTERASE NEGATIVE (NEGATIVE); URINE NITRITE NEGATIVE (NEGATIVE); URINE UROBILINOGEN NEGATIVE mg/dL (0.2-1.0)
[2018-03-21 20:55] LABS: URINE PROTEIN 1+ (NEGATIVE)
[2018-03-21 21:02] VITALS: BP 137/70; PULSE 70; TEMP 97.8
[2018-03-21] MEDS ORDERED: SODIUM CHLORIDE NASAL SPRAY 44 ML BOTTLE NS ONE (21:36)
--- NOTE | 2018-03-21 22:07 | PDOC ---
Attending Attestation - Resident Resident Name: Jesus Bran - ED Attending Attestation I have performed the following: I have examined & evaluated the patient, The case was reviewed & discussed with the resident, I agree w/resident's findings & plan, Exceptions are as noted - HPI HPI: 03/21/18 22:07 "Patient is an 82 year old male with a significant past medical history of HIV ( on ARVs), emphysema, diabetes, hypertension, hyperlipidemia, Asthma, COPD, who presents to the ED with complaints of nasal congestion that began x4 days ago. Patient reports experiencing a stuffy nose as well as sneezing. Denies F/C. Denies CP/SOB. Denies cough. Denies sinus or facial pain. Pt notes that his daughter was sick with pink eye recently. Allergies: None Social history: No smoking. No alcohol. No illicit drugs. Surgical history: None PMD: None " - Physicial Exam PE: 03/21/18 22:09 "GENERAL: Awake, alert, and fully oriented, in no acute distress. HEAD: No signs of trauma EYES: PERRLA, EOMI, sclera anicteric, conjunctiva clear ENT: Auricles normal inspection, hearing grossly normal, nares patent, oropharynx clear without exudates. Moist mucosa NECK: Nontender, no stepoffs, Normal ROM, supple, no lymphadenopathy, JVD, or masses LUNGS: Breath sounds equal, clear to auscultation bilaterally. No wheezes, and no crackles HEART: Regular rate and rhythm, normal S1 and S2, no murmurs, rubs or gallops ABDOMEN: Soft, nontender, normoactive bowel sounds. No guarding, no rebound. No masses EXTREMITIES: Normal range of motion, no edema. No clubbing or cyanosis. No cords, erythema, or tenderness NEUROLOGICAL: Cranial nerves II through XII intact. 5/5 strength and sensation in all extremities, Normal speech, normal gait, normal cerebellar function SKIN: Warm, Dry, normal turgor, no rashes or lesions noted." - Medical Decision Making 03/21/18 22:09 82 M with nasal congestion and sneezing. Suspect viral URI vs allergic rhinitis. Lungs clear on exam. Vitals stable with no fever. - Labs, CXR 03/21/18 22:16 Labs wnl CXR clear Case discussed with pt's ID doctor, Dr. Marks, who reports pt had good CD4 count and low VL on most recent testing. Also notes that pt's Cr 2.2 today is his baseline. Pt reassessed - continues to feel well, though complains that his nasal congestion is bothersome. Pt with no sinus tenderness. - Will DC pt with flonase and Z-pack for possible sinusitis Pt is well appearing, with normal vitals. Clinically stable for DC at this time. I discussed the physical exam findings, ancillary test results and final diagnoses with the patient. I answered all of the patient's questions. The patient was satisfied with the care received and felt comfortable with the discharge plan and treatment plan. The patient agrees to follow up with the primary care physician within 24-72 hours.
--- NOTE | 2018-03-22 21:26 | EKG ---
Test Reason : Blood Pressure : / mmHG Vent. Rate : 060 BPM Atrial Rate : 060 BPM P-R Int : 188 ms QRS Dur : 158 ms QT Int : 464 ms P-R-T Axes : 037 075 018 degrees QTc Int : 464 ms NORMAL SINUS RHYTHM RIGHT BUNDLE BRANCH BLOCK ABNORMAL ECG WHEN COMPARED WITH ECG OF 17-JUN-2017 22:14, PREMATURE ATRIAL COMPLEXES ARE NO LONGER PRESENT QRS AXIS SHIFTED LEFT BORDERLINE CRITERIA FOR INFERIOR INFARCT ARE NO LONGER PRESENT T WAVE INVERSION LESS EVIDENT IN INFERIOR LEADS Confirmed by LEOLA CONTRERAS MD ([id number]) on 03/22/2018 9:25:38 PM Referred By: Confirmed By:LEOLA CONTRERAS MD
--- NOTE | 2018-03-28 15:40 | EKG ---
Test Reason : Blood Pressure : / mmHG Vent. Rate : 068 BPM Atrial Rate : 068 BPM P-R Int : 176 ms QRS Dur : 158 ms QT Int : 444 ms P-R-T Axes : 038 087 026 degrees QTc Int : 472 ms NORMAL SINUS RHYTHM RIGHT BUNDLE BRANCH BLOCK ABNORMAL ECG WHEN COMPARED WITH ECG OF 17-JUN-2017 22:14, PREMATURE ATRIAL COMPLEXES ARE NO LONGER PRESENT QRS AXIS SHIFTED LEFT BORDERLINE CRITERIA FOR INFERIOR INFARCT ARE NO LONGER PRESENT Confirmed by MD Phillips Daniel ([id number]) on 03/28/2018 3:39:54 PM Referred By: Confirmed By:Watson Phillips MD
== END 2018-03-21 22:30 | disposition home or self-care (01) ==
LOC: JER 17:31
PROC: 3E0337Z Introduction of Electrolytic and Water Balance Substance into Peripheral Vein, Percutaneous Approach (ICD-10-PCS; principal; 2018-03-21)
DX: J06.9 Acute upper respiratory infection, unspecified (principal); B97.89 Other viral agents as the cause of diseases classified elsewhere; Z21 Asymptomatic human immunodeficiency virus [HIV] infection status; I25.10 Atherosclerotic heart disease of native coronary artery without angina pectoris; Z95.5 Presence of coronary angioplasty implant and graft; I10 Essential (primary) hypertension; E11.9 Type 2 diabetes mellitus without complications; E78.5 Hyperlipidemia, unspecified; H43.9 Unspecified disorder of vitreous body; Z86.73 Personal history of transient ischemic attack (TIA), and cerebral infarction without residual deficits
CPT/HCPCS: 36415; 71046-TC-FY; 80053; 81003; 81015; 82803; 83605; 84484; 85025; 85610; 85730; 87040; 87086; 93005; 93010; 96360; 99284-25; J7030

== ENCOUNTER 2018-10-01 08:16 | Emergency (ER) | payer OTHER ==
[2018-10-01 08:21] VITALS: TEMP 97.6; BMI 20.8
--- NOTE | 2018-10-01 08:34 | PDOC ---
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 The patient took over the counter stool softener, suppositories and attempted an enema without relief of symptoms. He states he has previously gotten constipated in the past but this episode is much worse and is associated with feeling weak / wobbly. He denies fevers, nausea, vomiting, chest pain, shortness of breath. He denies prior abdominal surgeries. Past History - Past Medical History Allergies/Adverse Reactions: Allergies Allergy/AdvReac Type Severity Reaction Status Date / Time No Known Allergies Allergy Verified 10/01/18 08:21 Home Medications: Ambulatory Orders Alpha Lipoic Acid 200 mg PO TID 12/17/12 Ascorbate Calcium/Bioflav [Cande-C 500 mg Tablet] 1 each PO BID 12/17/12 Aspirin [ASA -] 81 mg PO DAILY 12/17/12 Fenofibrate [Lipofen] 160 mg PO DAILY 12/17/12 Ferrous Fumarate 65 mg PO BID 12/17/12 Metoprolol Tartrate [Lopressor -] 25 mg PO BID 12/17/12 Lutz-3 Acid Ethyl Esters [Lovaza -] 2 gm PO BID 12/17/12 Ubidecarenone [Co Q-10] 15 ml PO DAILY 12/17/12 Sitagliptin Phosphate [Januvia] 25 mg PO HS 08/25/16 Cholecalciferol (Vitamin D3) [Vitamin D3] 2,000 unit PO BID 11/27/16 Glipizide [Glipizide ER] 10 mg PO BID 11/27/16 Loperamide HCl [Imodium -] 2 mg PO PRN PRN 11/27/16 Multivitamin with Minerals [Icaps Plus] 1 each PO DAILY 11/27/16 Saw [place] Fruit [Saw Ray[place]ham] 450 mg PO DAILY 11/27/16 Vitamin B Complex 1 tab PO DAILY 11/27/16 Vitamin E 400 unit PO DAILY 11/27/16 Rosuvastatin [Crestor -] 10 mg PO DAILY 06/07/17 Albuterol 2.5/Ipratropium 0.5 [Duoneb -] 1 amp NEB QIDR amp 06/11/17 Abacavir Sulfate [Ziagen -] 300 mg PO BID 06/18/17 Clopidogrel Bisulfate [Plavix] 75 mg PO DAILY 03/21/18 Fluticasone Prop 0.05% Nasal [Flonase -] 1 - 2 spray NS DAILY #1 spray.pump Carboxymethylcellulos/Glycerin [Lubricant 0.5-0.9% Eye Drops] 15 ml OP PRN 7 Days #1 drops 03/22/18 Docusate Sodium [Colace -] 100 mg PO TID #21 capsule 10/01/18 Lamivudine Oral Soln [Epivir Oral Solution -] 50 mg PO DAILY 10/01/18 Melatonin 3 mg PO HS 10/01/18 Pioglitazone HCl [Actos] 30 mg PO DAILY 10/01/18 Polyethylene Glycol 3350 [Miralax (For Daily Use) -] 17 gm PO DAILY #1 bottle Tamsulosin HCl [Flomax] 0.4 mg PO DAILY 10/01/18 Anemia: No Asthma: No Cancer: No Cardiac Disorders: Yes (CAD) CVA: Yes (TIA) COPD: No CHF: No DVT: No Diabetes: Yes Disorders: Yes (BPH) HTN: Yes Hypercholesterolemia: Yes Liver Disease: No Seizures: No - Surgical History Abdominal Surgery: Yes (ANAL FISSURE) Appendectomy: No Cardiac Surgery: Yes (CARDIAC STENT; carotid endarterectomy) Cholecystectomy: No Neurologic Surgery: No - Immunization History Td Vaccination: (unsure) Immunization Up to Date: Yes - Suicide/Smoking/Psychosocial Hx Smoking Status: No Smoking History: Never smoked Years of Tobacco Use: 0 Have you smoked in the past 12 months: No Number of Cigarettes Smoked Daily: 0 Cigars Per Day: 0 Information on smoking cessation initiated: No Hx Alcohol Use: No Drug/Substance Use Hx: No Substance Use Type: Alcohol Hx Substance Use Treatment: No Review of Systems - Review of Systems Able to Perform ROS?: Yes Is the patient limited Belarusian proficient: No Constitutional: No: Chills, Diaphoresis, Fever HEENTM: No: Blurred Vision, Tinnitus Respiratory: No: Cough, Orthopnea, Shortness of Breath Cardiac (ROS): No: Chest Pain, Lightheadedness, Palpitations, Syncope ABD/GI: Yes: Constipated. No: Diarrhea, Nausea, Vomiting : No: Burning, Dysuria, Incontinence Musculoskeletal: No: Back Pain, Muscle Weakness Integumentary: No: Lesions Neurological: No: Headache, Numbness, Paresthesia, Tingling Hematologic/Lymphatic: No: Anemia *Physical Exam - Vital Signs Last Vital Signs Temp Pulse Resp BP Pulse Ox 97.6 F 69 18 138/62 97 10/01/18 08:19 10/01/18 08:19 10/01/18 08:19 10/01/18 08:19 10/01/18 08:19 - Physical Exam Comments: 10/01/18 09:27 GENERAL: Awake, alert, and fully oriented, in no acute distress HEAD: No signs of trauma, normocephalic, atraumatic EYES: EOMI, sclera anicteric, conjunctiva clear ENT: oropharynx clear without exudates. Moist mucosa NECK: Normal ROM, supple LUNGS: No distress, speaks full sentences, clear to auscultation bilaterally HEART: Regular rate and rhythm, normal S1 and S2, no murmurs, rubs or gallops, peripheral pulses normal and equal bilaterally. ABDOMEN: Soft, + LLQ tenderness, slight LUQ tenderness, normoactive bowel sounds. No guarding, no rebound. No masses EXTREMITIES : Normal inspection, Normal range of motion, no edema. No clubbing or cyanosis. NEUROLOGICAL: Cranial nerves II through XII grossly intact. 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 The patient took over the counter stool softener, suppositories and attempted an enema without relief of symptoms. He states he has previously gotten constipated in the past but this episode is much worse and is associated with feeling weak / wobbly. He denies fevers, nausea, vomiting, chest pain, shortness of breath. He denies prior abdominal surgeries. ED Course: consider diverticulitis vs constipation vs UC vs crohns cbc, cmp, lipase, ua, CTAP 10/01/18 11:29 cbc: wnl ua: wnl 10/01/18 11:50 elevated BUN/Cr - however typically elevated slightly elevated lipase non con CT AP - unremarkable Patient stable for discharge. Informed of all lab and imaging results. Given follow up instructions and strict return precautions. Patient expressed understanding and agree to plan. *DC/Admit/Observation/Transfer Diagnosis at time of Disposition: Constipation Qualifiers: Constipation type: unspecified constipation type Qualified Code(s): K59.00 - Constipation, unspecified - Discharge Dispostion Disposition: HOME Condition at time of disposition: Stable Decision to Admit order: No - Prescriptions Prescriptions: Docusate Sodium [Colace -] 100 mg PO TID #21 capsule Polyethylene Glycol 3350 [Miralax (For Daily Use) -] 17 gm PO DAILY #1 bottle - Referrals Referrals: Fred Marks MD [Primary Care Provider] - - Patient Instructions Printed Discharge Instructions: DI for Constipation Additional Instructions: You were seen in the ED for complaints of constipation. In the ED you were evaluated with labwork and imaging. Your results were unremarkable. There does not appear to be an acute need for immediate hospitalization. You are advised to follow up with your Primary Care Physician within 1 week. You were given a prescription for miralax and colace. Please take as prescribed. Drink plenty of fluids and maintain a high fiber diet. It is advised that you take metamucil daily. Return to the ED immediately if you experience worsening constipation, abdominal pain, blood in stool, fevers, nausea or vomiting. Please call your doctors and schedule a follow up. - Post Discharge Activity
[2018-10-01] MEDS ORDERED: SENNOSIDES 8.6MG TABLET (FP) PO ONE (09:04)
[2018-10-01] MEDS ORDERED: DOCUSATE SODIUM 100 MG CAPSULE (FP) PO ONE (09:04)
--- NOTE | 2018-10-01 09:33 | PDOC ---
Attending Attestation - Resident Resident Name: Maria Isabel Moreno - ED Attending Attestation I have performed the following: I have examined & evaluated the patient, The case was reviewed & discussed with the resident, I agree w/resident's findings & plan, Exceptions are as noted - HPI HPI: 10/01/18 09:31 82-year-old male with history of TIA, coronary disease, BPH, type 2 diabetes, hypertension, HIV currently on medications, last CD4 count 16 earlier this month presents with constipation for 2 days and left lower quadrant pain. Patient reports that he typically moves his bowels with the assistance of home medications. Noted 2 days ago that it was increasingly more difficult to move his bowels and started developing constant left lower quadrant pain. Denies rectal pain. No fevers or chills or nausea or vomiting. Denies abdominal surgeries but does report a history of rectal fistula repair. Patient denies dysuria or testicular pain. Because of the persistent pain, came to the emergency department. At home, he attempted to try enemas, suppositories and stool softeners but without success. Incidentally, the patient reports several weeks of fatigue that he has been discussing with his doctors but they are currently investigating at this moment. - Physicial Exam PE: 10/01/18 09:31 GENERAL: Awake, alert, and fully oriented, in no acute distress HEAD: No signs of trauma EYES: EOMI, sclera anicteric, conjunctiva clear ENT: Auricles normal inspection, hearing grossly normal, nares patent, Moist mucosa NECK: Normal ROM, supple, ABDOMEN: Soft, TTP LLQ. No guarding, no rebound. No masses EXTREMITIES: Normal range of motion, no edema. No clubbing or cyanosis. No cords, erythema, or tenderness NEUROLOGICAL: Cranial nerves II through XII grossly intact. Normal speech SKIN: Warm, Dry, normal turgor, no rashes or lesions noted. - Medical Decision Making 10/01/18 09:32 Vital Signs Temp Pulse Resp BP Pulse Ox 97.6 F 69 18 138/62 97 10/01/18 08:19 10/01/18 08:19 10/01/18 08:19 10/01/18 08:19 10/01/18 08:19 This is an 82-year-old gentleman presenting with left lower quadrant pain and constipation and fatigue. Differential includes diverticulitis, colitis or other acute abdominal pathology. This may also potentially be constipation. The patient will need a CT scan abdomen pelvis. If the patient is not neutropenic, we'll need a digital rectal exam to assess for stool burden. Labs. Also, patient endorses fatigue and constipation, we'll check TSH and cardiac and reassess. 10/01/18 14:44 CAT scan abdomen pelvis demonstrates diverticulosis but without evidence of acute diverticulitis. There is nondistention of the descending colon including the splenic flexure with mild stranding of this turning fat cannot rule out mild colitis. Correlate clinically. Right renal simple cyst. There is some stranding of the perinephric fat. There is no evidence of small bowel traction. Borderline hepatomegaly. CBC, BMP 10/01/18 10:19 10/01/18 10:19 CMP Sodium 135 mmol/L (136-145) L 10/01/18 10:19 Potassium 4.0 mmol/L (3.5-5.1) 10/01/18 10:19 Chloride 98 mmol/L (98-107) 10/01/18 10:19 Carbon Dioxide 31 mmol/L (21-32) 10/01/18 10:19 Anion Gap 6 MMOL/L (8-16) L 10/01/18 10:19 BUN 34 mg/dL (7-18) H 10/01/18 10:19 Creatinine 1.9 mg/dL (0.55-1.3) H 10/01/18 10:19 Creat Clearance w eGFR 34.28 (>60) 10/01/18 10:19 Random Glucose 131 mg/dL (74-106) H 10/01/18 10:19 Calcium 10.8 mg/dL (8.5-10.1) H 10/01/18 10:19 Total Bilirubin 0.5 mg/dL (0.2-1) 10/01/18 10:19 AST 21 U/L (15-37) 10/01/18 10:19 ALT 30 U/L (13-61) 10/01/18 10:19 Alkaline Phosphatase 37 U/L (45-117) L 10/01/18 10:19 Troponin I < 0.02 ng/ml (0.00-0.05) 10/01/18 10:19 Total Protein 7.7 g/dl (6.4-8.2) 10/01/18 10:19 Albumin 3.9 g/dl (3.4-5.0) 10/01/18 10:19 Lipase 399 U/L (73-393) H 10/01/18 10:19 TSH 2.42 uIU/ml (0.358-3.74) 10/01/18 10:19 Urine Test Results Urine Color Yellow 10/01/18 10:19 Urine Appearance Clear 10/01/18 10:19 Urine pH 6.5 (5.0-8.0) 10/01/18 10:19 Ur Specific Llewellyn 1.020 (1.010-1.035) 10/01/18 10:19 Urine Protein 2+ (NEGATIVE) H 10/01/18 10:19 Urine Glucose (UA) Negative (NEGATIVE) 10/01/18 10:19 Urine Ketones Negative (NEGATIVE) 10/01/18 10:19 Urine Blood Negative (NEGATIVE) 10/01/18 10:19 Urine Nitrite Negative (NEGATIVE) 10/01/18 10:19 Urine Bilirubin Negative (NEGATIVE) 10/01/18 10:19 Ur Leukocyte Esterase Negative (NEGATIVE) 10/01/18 10:19 My resident had performed a digital rectal exam. Subsequent, the patient had 2 large bowel movements and feels significant relief. I do not suspect that this is colitis or other acute abdominal pathology at this time. I suspect that this is likely secondary to consultation. I had given the copy the results to the patient. Patient's feels much better like to go home. We'll discharge with MiraLAX and Colace and have patient follow-up with his doctors. I discussed the physical exam findings, ancillary test results and final diagnoses with the patient. I answered all of the patient's questions. The patient was satisfied with the care received and felt comfortable with the discharge plan and treatment plan. The patient will call their primary care physician within 24 hours to arrange follow-up and will return to the Emergency Department with any new, persistant or worsening symptoms. *DC/Admit/Observation/Transfer Diagnosis at time of Disposition: Constipation Qualifiers: Constipation type: unspecified constipation type Qualified Code(s): K59.00 - Constipation, unspecified - Discharge Dispostion Disposition: HOME Condition at time of disposition: Stable Decision to Admit order: No - Prescriptions Prescriptions: Docusate Sodium [Colace -] 100 mg PO TID #21 capsule Polyethylene Glycol 3350 [Miralax (For Daily Use) -] 17 gm PO DAILY #1 bottle - Referrals Referrals: Fred Marks MD [Primary Care Provider] - - Patient Instructions Printed Discharge Instructions: DI for Constipation Additional Instructions: You were seen in the ED for complaints of constipation. In the ED you were evaluated with labwork and imaging. Your results were unremarkable. There does not appear to be an acute need for immediate hospitalization. You are advised to follow up with your Primary Care Physician within 1 week. You were given a prescription for miralax and colace. Please take as prescribed. Drink plenty of fluids and maintain a high fiber diet. It is advised that you take metamucil daily. Return to the ED immediately if you experience worsening constipation, abdominal pain, blood in stool, fevers, nausea or vomiting. Please call your doctors and schedule a follow up. - Post Discharge Activity Heart Score/ECG Review #1 ECG reviewed & interpreted by me at: 10:15 10/01/18 10:48 NSR 71 , normal axis, RBBB, QTC 525 msec, no std/alberto
[2018-10-01 10:56] LABS: BASO % 0.2 % (0-2.0); EOS % 1.7 % (0-4.5); HEMATOCRIT 43.3 % (35.4-49); HEMOGLOBIN 14.4 GM/dL (11.7-16.9); LYMPH % 16.1 % (8-40); MCH 31.9 pg (25.7-33.7); MCHC 33.2 g/dl (32.0-35.9); MEAN CELL VOLUME 96.2 fl (80-96); MEAN PLT VOLUME 7.9 fl (7.5-11.1); MONO % 8.3 % (3.8-10.2); NEUT % 73.7 % (42.8-82.8); PLATELET COUNT 181 K/MM3 (134-434); RDW 14.8 % (11.9-15.9); WHITE BLOOD COUNT 9.8 K/mm3 (4.0-10.0)
[2018-10-01 10:59] LABS: PH,URINE 6.5 (5.0-8.0); URINE APPEARANCE Clear; URINE BILIRUBIN Negative (NEGATIVE); URINE COLOR Yellow; URINE GLUCOSE (UA) Negative (NEGATIVE); URINE KETONE Negative (NEGATIVE); URINE LEUK ESTERASE Negative (NEGATIVE); URINE NITRITE Negative (NEGATIVE); URINE PROTEIN 2+ (NEGATIVE); URINE UROBILINOGEN 0.2 mg/dL (0.2-1.0)
[2018-10-01 11:33] LABS: ALBUMIN 3.9 g/dl (3.4-5.0); ALK PHOS 37 U/L (45-117); ANION GAP 6 MMOL/L (8-16); BILIRUBIN,TOTAL 0.5 mg/dL (0.2-1); BLOOD UREA NITROGEN 34 mg/dL (7-18); CALCIUM 10.8 mg/dL (8.5-10.1); CHLORIDE 98 mmol/L (98-107); CO2 31 mmol/L (21-32); CREATININE 1.9 mg/dL (0.55-1.3); GLUCOSE,RANDOM 131 mg/dL (74-106); LIPASE 399 U/L (73-393); SGOT/AST 21 U/L (15-37); SGPT/ALT 30 U/L (13-61); SODIUM 135 mmol/L (136-145); TOT PROT 7.7 g/dl (6.4-8.2)
[2018-10-01 15:00] VITALS: BP 105/56; PULSE 68
--- NOTE | 2018-10-02 10:37 | EKG ---
Test Reason : Blood Pressure : / mmHG Vent. Rate : 071 BPM Atrial Rate : 071 BPM P-R Int : 204 ms QRS Dur : 162 ms QT Int : 484 ms P-R-T Axes : 033 084 001 degrees QTc Int : 525 ms NORMAL SINUS RHYTHM POSSIBLE LEFT ATRIAL ENLARGEMENT RIGHT BUNDLE BRANCH BLOCK ABNORMAL ECG WHEN COMPARED WITH ECG OF 21-MAR-2018 19:47, QT HAS LENGTHENED Confirmed by ROXANA SAMUEL MD ([id number]) on 10/02/2018 10:37:06 AM Referred By: Confirmed By:ROXANA SAMUEL MD
== END 2018-10-01 15:00 | disposition home or self-care (01) ==
LOC: JER 08:16
DX: K59.00 Constipation, unspecified (principal); I13.10 Hypertensive heart and chronic kidney disease without heart failure, with stage 1 through stage 4 chronic kidney disease, or unspecified chronic kidney disease; I25.10 Atherosclerotic heart disease of native coronary artery without angina pectoris; E11.22 Type 2 diabetes mellitus with diabetic chronic kidney disease; N18.9 Chronic kidney disease, unspecified; Z95.5 Presence of coronary angioplasty implant and graft; Z79.84 Long term (current) use of oral hypoglycemic drugs; E78.5 Hyperlipidemia, unspecified; N40.0 Benign prostatic hyperplasia without lower urinary tract symptoms; Z86.73 Personal history of transient ischemic attack (TIA), and cerebral infarction without residual deficits; B20 Human immunodeficiency virus [HIV] disease
CPT/HCPCS: 36415; 74176-TC; 80053; 81003; 83690; 84443; 84484; 85025; 87077; 87086; 93005; 93010; 99283-25

== ENCOUNTER 2019-02-11 22:29 | Emergency (ER) | payer BC, OTHER ==
[2019-02-11 22:40] VITALS: TEMP 98.2; BMI 21.9
--- NOTE | 2019-02-11 23:19 | PDOC ---
Documentation entered by Darius Cui SCRIBE, acting as scribe for Brett Araujo MD. Brett Araujo MD: This documentation has been prepared by the See medina Elijah, SCRIBE, under my direction and personally reviewed by me in its entirety. I confirm that the documentation accurately reflects all work, treatment, procedures, and medical decision making performed by me. Attending Attestation - Resident Resident Name: RuddyKelsey - ED Attending Attestation I have performed the following: I have examined & evaluated the patient, The case was reviewed & discussed with the resident, I agree w/resident's findings & plan - HPI HPI: 02/11/19 23:49 Patient is an 83 year old male with a significant past medical history of IA, coronary disease, BPH, type 2 diabetes, hypertension, HIV (on medications), last CD4 count 16 (09/2018) who presents to the ED with constipation. Patient reports not being able to have a bowel movement since yesterday and scant BM spanning the days prior. Patient took laxatives and suppositories but nothing relieved his symptoms. Patient associates abdominal pain and nausea. Denies blood and vomit. Allergies: NKA PCP: Dr. Marks - Physicial Exam PE: 02/12/19 00:33 Agree with exam as documented by resident - Medical Decision Making 02/12/19 00:33 Severe constipation ELIZABETH disimpaction followed by large BM Pt endorses improvement in subjective symptoms and feeling comfortable Recheck VS dc home
[2019-02-11] MEDS ORDERED: ONDANSETRON 4 MG TABLET PO PRN (23:33)
[2019-02-11] MEDS ORDERED: MINERAL OIL ENEMA 133 ML ENEMA PR ONE (23:33)
--- NOTE | 2019-02-11 23:49 | PDOC ---
History of Present Illness - General Chief Complaint: Pain Stated Complaint: CONSTIPATION/ABD/PAIN Time Seen by Provider: 02/11/19 23:02 History Source: Patient Exam Limitations: No Limitations - History of Present Illness Initial Comments: 02/11/19 23:44 [id number] with h/o chronic constipation, HIV on AVRT (last CD4 count 16 on 09/09/18 ) , COPD, SAIMA, DM, HTN, and HLD who p/w constipation and abdominal distention/ vague discomfort for the past 1-2 days. He notes no bowel movement yesterday and scant bowel movements prior to yesterday. States he feels his abdomen becoming more and more distended and tight, additionally started becoming nauseated tonight. States the last time his constipation got this bad, he was admitted to the hospital a year ago. He states he has tried every laxative or stool softener available and has tried both PO and suppository. No rectal bleeding, f/c, vomiting, diarrhea, prior abdominal surgeries, or h/o malignancy. Past History - Past Medical History Allergies/Adverse Reactions: Allergies Allergy/AdvReac Type Severity Reaction Status Date / Time No Known Allergies Allergy Verified 10/01/18 08:21 Home Medications: Ambulatory Orders Alpha Lipoic Acid 200 mg PO TID 12/17/12 Ascorbate Calcium/Bioflav [Cande-C 500 mg Tablet] 1 each PO BID 12/17/12 Aspirin [ASA -] 81 mg PO DAILY 12/17/12 Fenofibrate [Lipofen] 160 mg PO DAILY 12/17/12 Ferrous Fumarate 65 mg PO BID 12/17/12 Metoprolol Tartrate [Lopressor -] 25 mg PO BID 12/17/12 [place]-3 Acid Ethyl Esters [Lovaza -] 2 gm PO BID 12/17/12 Ubidecarenone [Co Q-10] 15 ml PO DAILY 12/17/12 Sitagliptin Phosphate [Januvia] 25 mg PO HS 08/25/16 Cholecalciferol (Vitamin D3) [Vitamin D3] 2,000 unit PO BID 11/27/16 Glipizide [Glipizide ER] 10 mg PO BID 11/27/16 Loperamide HCl [Imodium -] 2 mg PO PRN PRN 11/27/16 Multivitamin with Minerals [Icaps Plus] 1 each PO DAILY 11/27/16 [place] Fruit [Saw [place]] 450 mg PO DAILY 11/27/16 Vitamin B Complex 1 tab PO DAILY 11/27/16 Vitamin E 400 unit PO DAILY 11/27/16 Rosuvastatin [Crestor -] 10 mg PO DAILY 06/07/17 Albuterol 2.5/Ipratropium 0.5 [Duoneb -] 1 amp NEB QIDR amp 06/11/17 Abacavir Sulfate [Ziagen -] 300 mg PO BID 06/18/17 Clopidogrel Bisulfate [Plavix] 75 mg PO DAILY 03/21/18 Fluticasone Prop 0.05% Nasal [Flonase -] 1 - 2 spray NS DAILY #1 spray.pump Carboxymethylcellulos/Glycerin [Lubricant 0.5-0.9% Eye Drops] 15 ml OP PRN 7 Days #1 drops 03/22/18 Docusate Sodium [Colace -] 100 mg PO TID #21 capsule 10/01/18 Lamivudine Oral Soln [Epivir Oral Solution -] 50 mg PO DAILY 10/01/18 Melatonin 3 mg PO HS 10/01/18 Pioglitazone HCl [Actos] 30 mg PO DAILY 10/01/18 Polyethylene Glycol 3350 [Miralax (For Daily Use) -] 17 gm PO DAILY #1 bottle Tamsulosin HCl [Flomax] 0.4 mg PO DAILY 10/01/18 Mineral Oil Enema [Fleet Mineral Oil Rectal Enema] 133 ml NR DAILY PRN #3 enema 02/12/19 Anemia: No Asthma: No Cancer: No Cardiac Disorders: Yes (CAD) CVA: Yes (TIA) COPD: No CHF: No DVT: No Diabetes: Yes Disorders: Yes (BPH) HTN: Yes Hypercholesterolemia: Yes Liver Disease: No Seizures: No - Surgical History Abdominal Surgery: Yes (ANAL FISSURE) Appendectomy: No Cardiac Surgery: Yes (CARDIAC STENT; carotid endarterectomy) Cholecystectomy: No Neurologic Surgery: No - Immunization History Td Vaccination: (unsure) Immunization Up to Date: Yes - Suicide/Smoking/Psychosocial Hx Smoking Status: No Smoking History: Never smoked Years of Tobacco Use: 0 Have you smoked in the past 12 months: No Number of Cigarettes Smoked Daily: 0 Cigars Per Day: 0 Hx Alcohol Use: No Drug/Substance Use Hx: No Substance Use Type: Alcohol Hx Substance Use Treatment: No Review of Systems - Review of Systems Able to Perform ROS?: Yes Comments:: 02/11/19 23:48 GEN: no fever, chills, malaise, generalized weakness, or weight change HEENT: no ear pain, sore throat, vision change, or eye pain CV: no chest pain, palpitations, lightheadedness, syncope, or edema RESP: no cough, wheezing, or SOB GI: abdominal distention and pain, nausea, constipation, no vomiting, diarrhea, obstipation, or white/black/bloody stool : no dysuria, hematuria, incontinence, retention, bleeding, or discharge MSK: no neck/back pain, muscle weakness/pain, or joint swelling/pain NEURO: no headache, seizure, vertigo, numbness, tingling, or focal weakness PSYCH: no substance use, no behavior change SKIN: no jaundice, no rash ROS otherwise negative except as noted in HPI *Physical Exam - Vital Signs Last Vital Signs Temp Pulse Resp BP Pulse Ox 98.2 F 104 H 18 192/99 H 97 02/11/19 22:37 02/11/19 22:37 02/11/19 22:37 02/11/19 22:37 02/11/19 22:37 - Physical Exam Comments: 02/11/19 23:49 GENERAL: well-appearing, A/Ox4, no distress, answers questions appropriately HEENT: PERRLA, EOMI, moist mucous membranes NECK/BACK: no midline ttp, no spinal stepoff or deformity, no hematoma, full ROM , neck supple CARDIOVASCULAR: regular rate/rhythm, normal S1S2, no MGR, strong peripheral pulses, capillary refill <2 seconds, extremities wwp, no edema LUNGS/RESPIRATORY: no respiratory distress, CTAB GI/ABDOMEN: symmetric [id number], normoactive BS, distended to the point of being fairly tight but no rigidity, no focal ttp but generalized discomfort on palpation, no midline pulsatile masses RECTAL EXAM: no external hemorrhoids, no bleeding, no fissures or fistulas, no tenderness on exam, large amount of hard brown stool which is disimpacted, soft stool felt further into the rectal vault, Fleet enema applied : no CVA tenderness EXTREMITIES: no muscle atrophy, no acute deformity SKIN: warm and dry, no pallor, no jaundice, no rash, no bruising, no skin breakdown, no cuts, no lesions NEUROLOGICAL: GCS 15, CN II-XII grossly intact, 5/5 strength proximally and distally, no facial droop Medical Decision Making - Medical Decision Making 83YOM with HIV and other comorbidities p/w constipation without obstipation. Initial Vital Signs Temp Pulse Resp BP Pulse Ox 98.2 F 104 H 18 192/99 H 97 02/11/19 22:37 02/11/19 22:37 02/11/19 22:37 02/11/19 22:37 02/11/19 22:37 Exam: As noted in Physical Exam section. DDX IBNLT: Constipation, much less likely SBO or other more serious etiology W/U ordered: None TX ordered: Fleets enema, Zofran 4 mg. 02/12/19 00:30 Patient had large BM, states comfortable going home, abdomen nontender and soft. Vital Signs Temperature 98.2 F 02/11/19 22:37 Pulse Rate 96 H 02/12/19 00:42 Respiratory Rate 18 02/12/19 00:42 Blood Pressure 107/64 02/12/19 00:42 O2 Sat by Pulse Oximetry (%) 97 02/11/19 22:37 This patient has gotten significant relief of symptoms while in the ED. On last reassessment, vitals are wnl, pain is reasonably controlled, and exam is benign. Workup is not concerning for emergency-level pathology at this time. This patient is appropriate for discharge with close outpatient follow up. They are comfortable with this plan and will follow up with their primary care provider in 1-3 days. Fleets enema Rx sent to pharmacy. Specific return precautions are discussed and they will come back to the ER if necessary. *DC/Admit/Observation/Transfer Diagnosis at time of Disposition: Constipation Qualifiers: Constipation type: unspecified constipation type Qualified Code(s): K59.00 - Constipation, unspecified - Discharge Dispostion Disposition: HOME Condition at time of disposition: Stable Decision to Admit order: No - Prescriptions Prescriptions: Mineral Oil Enema [Fleet Mineral Oil Rectal Enema] 133 ml NR DAILY PRN #3 enema PRN Reason: Constipation - Referrals Referrals: Fred Marks MD [Primary Care Provider] - Aftab Obrien DO [Staff Physician] - - Patient Instructions Printed Discharge Instructions: DI for Constipation Additional Instructions: You were seen in the ER for constipation. We did an exam, did a rectal disimpaction procedure, and gave you a Fleets enema which helped you have a bowel movement. After our assessment, we do not believe you are having a medical emergency at this time, and we believe you are safe to go home. Please follow up with your primary care provider in 1-3 days, ans also with Dr. Obrien. Call their clinic, tell them you were seen in the ER, and tell them you need a follow-up. If you have any new or worsening symptoms, please come back to the ER at any time (24 hours a day). If you are having severe or life threatening symptoms, or symptoms that make it unsafe to drive or have someone drive you, please call 911. supervisor residential the Fleets enemas we are sending to your pharmacy and use them as needed following the instructions on the prescription. - Post Discharge Activity
[2019-02-11] MEDS ORDERED: ONDANSETRON *ODT* 4 MG TABLET ONE (23:59)
[2019-02-12 00:43] VITALS: BP 107/64; PULSE 96
== END 2019-02-12 01:11 | disposition home or self-care (01) ==
LOC: JER 22:29
DX: K59.00 Constipation, unspecified (principal); Z95.5 Presence of coronary angioplasty implant and graft; N40.0 Benign prostatic hyperplasia without lower urinary tract symptoms; I10 Essential (primary) hypertension; E78.00 Pure hypercholesterolemia, unspecified; I25.10 Atherosclerotic heart disease of native coronary artery without angina pectoris; E11.9 Type 2 diabetes mellitus without complications
CPT/HCPCS: 99282-25

== ENCOUNTER 2019-02-15 13:26 | Emergency (ER) | payer BC, OTHER ==
[2019-02-15 13:52] VITALS: BP 142/54; PULSE 86; TEMP 98.4; BMI 21.9
[2019-02-15] MEDS ORDERED: MINERAL OIL ENEMA 133 ML ENEMA PR ONE (16:07)
--- NOTE | 2019-02-15 16:17 | PDOC ---
History of Present Illness - General Chief Complaint: Constipation Stated Complaint: CONSTIPATION Time Seen by Provider: 02/15/19 15:42 History Source: Patient Exam Limitations: No Limitations - History of Present Illness Travel History: No Timing/Duration: reports: constant Quality: reports: cramping Abdominal Pain Onset Location: reports: LLQ Pain Radiation: reports: no radiation Activities at Onset: reports: none Aggravating Factors: improves with: None Alleviating Factors: improves with: Defecation, Passing Gas Past History - Travel Traveled outside of the country in the last 30 days: No Close contact w/someone who was outside of country & ill: No - Past Medical History Allergies/Adverse Reactions: Allergies Allergy/AdvReac Type Severity Reaction Status Date / Time No Known Allergies Allergy Verified 02/15/19 13:52 Home Medications: Ambulatory Orders Alpha Lipoic Acid 200 mg PO TID 12/17/12 Ascorbate Calcium/Bioflav [Cande-C 500 mg Tablet] 1 each PO BID 12/17/12 Aspirin [ASA -] 81 mg PO DAILY 12/17/12 Fenofibrate [Lipofen] 160 mg PO DAILY 12/17/12 Ferrous Fumarate 65 mg PO BID 12/17/12 Metoprolol Tartrate [Lopressor -] 25 mg PO BID 12/17/12 [place]-3 Acid Ethyl Esters [Lovaza -] 2 gm PO BID 12/17/12 Ubidecarenone [Co Q-10] 15 ml PO DAILY 12/17/12 Sitagliptin Phosphate [Januvia] 25 mg PO HS 08/25/16 Cholecalciferol (Vitamin D3) [Vitamin D3] 2,000 unit PO BID 11/27/16 Glipizide [Glipizide ER] 10 mg PO BID 11/27/16 Loperamide HCl [Imodium -] 2 mg PO PRN PRN 11/27/16 Multivitamin with Minerals [Icaps Plus] 1 each PO DAILY 11/27/16 Saw [place] Fruit [Saw [place]] 450 mg PO DAILY 11/27/16 Vitamin B Complex 1 tab PO DAILY 11/27/16 Vitamin E 400 unit PO DAILY 11/27/16 Rosuvastatin [Crestor -] 10 mg PO DAILY 06/07/17 Albuterol 2.5/Ipratropium 0.5 [Duoneb -] 1 amp NEB QIDR amp 06/11/17 Abacavir Sulfate [Ziagen -] 300 mg PO BID 06/18/17 Clopidogrel Bisulfate [Plavix] 75 mg PO DAILY 03/21/18 Fluticasone Prop 0.05% Nasal [Flonase -] 1 - 2 spray NS DAILY #1 spray.pump Carboxymethylcellulos/Glycerin [Lubricant 0.5-0.9% Eye Drops] 15 ml OP PRN 7 Days #1 drops 03/22/18 Docusate Sodium [Colace -] 100 mg PO TID #21 capsule 10/01/18 Lamivudine Oral Soln [Epivir Oral Solution -] 50 mg PO DAILY 10/01/18 Melatonin 3 mg PO HS 10/01/18 Pioglitazone HCl [Actos] 30 mg PO DAILY 10/01/18 Polyethylene Glycol 3350 [Miralax (For Daily Use) -] 17 gm PO DAILY #1 bottle Tamsulosin HCl [Flomax] 0.4 mg PO DAILY 10/01/18 Mineral Oil Enema [Fleet Mineral Oil Rectal Enema] 133 ml NR DAILY PRN #3 enema 02/12/19 Anemia: No Asthma: No Cancer: No Cardiac Disorders: Yes (CAD) CVA: Yes (TIA) COPD: No CHF: No DVT: No Diabetes: Yes Disorders: Yes (BPH) HTN: Yes Hypercholesterolemia: Yes Liver Disease: No Seizures: No - Surgical History Abdominal Surgery: Yes (ANAL FISSURE) Appendectomy: No Cardiac Surgery: Yes (CARDIAC STENT; carotid endarterectomy) Cholecystectomy: No Neurologic Surgery: No - Immunization History Td Vaccination: (unsure) Immunization Up to Date: Yes - Suicide/Smoking/Psychosocial Hx Smoking Status: No Smoking History: Unknown if ever smoked Years of Tobacco Use: 0 Have you smoked in the past 12 months: No Number of Cigarettes Smoked Daily: 0 Cigars Per Day: 0 Hx Alcohol Use: No Drug/Substance Use Hx: No Substance Use Type: Alcohol Hx Substance Use Treatment: No Patient Lives Alone: Yes Lives with/in: lives alone Abd/GI Specific PMHX - Complaint Specific PMHX GERD: No GI Ulcer Disease: No Review of Systems - Review of Systems Able to Perform ROS?: Yes Constitutional: No: Symptoms Reported HEENTM: No: Symptoms Reported Respiratory: No: Symptoms reported ABD/GI: Yes: Constipated, Abdominal cramping : No: Symptoms Reported Musculoskeletal: No: Symptoms Reported Integumentary: No: Symptoms Reported Neurological: No: Symptoms reported Hematologic/Lymphatic: No: Symptoms Reported *Physical Exam - Vital Signs Last Vital Signs Temp Pulse Resp BP Pulse Ox 98.4 F 86 20 142/54 L 96 02/15/19 13:45 02/15/19 13:45 02/15/19 13:45 02/15/19 13:45 02/15/19 13:45 - Physical Exam General Appearance: Yes: Nourished, Appropriately Dressed. No: Apparent Distress HEENT: negative: Pale Conjunctivae Neck: positive: Supple Respiratory/Chest: positive: Lungs Clear, Normal Breath Sounds. negative: Respiratory Distress, Accessory Muscle Use Cardiovascular: positive: Regular Rhythm, Regular Rate. negative: Murmur Gastrointestinal/Abdominal: positive: Normal Bowel Sounds, Soft, Distended ( slight), Tenderness Neurologic: positive: Motor Strength 5/5 (ambulatory) ED Treatment Course - RADIOLOGY Radiology Studies Ordered: Category Date Time Status ABDOMEN FLAT & UPRIGHT [RAD] Stat Radiology 02/15/19 15:43 Taken Medical Decision Making - Medical Decision Making 02/15/19 16:12 CC: constipation x 3 days, last bm was here after receiving enema 2 days ago, no relief after self administering enema x 2 yesterday. Very small soft BM this am. Exam: noted abd distenion, bs + x4, vss, no abd tenderness Plan: KUB if + constipation will order enema 02/15/19 17:04 Abdominal x-ray shows retained stool compatible with constipation. 02/15/19 18:49 Patient given enema and currently sitting on toilet if no bowel movement May consider soapsuds enema 02/15/19 18:57 Patient states had small to moderate size bowel movement. Patient to be discharged home to follow up with GI and continue with laxatives *DC/Admit/Observation/Transfer Diagnosis at time of Disposition: Constipation - Discharge Dispostion Disposition: HOME Condition at time of disposition: Improved - Referrals - Patient Instructions Printed Discharge Instructions: DI for Constipation Additional Instructions: Continue to eat plenty of fruits and vegetables and drink plenty of water. Increase your ambulation. Please follow-up with your chimney sweeper and discuss recent ER visits secondary to constipation. - Post Discharge Activity
== END 2019-02-15 19:31 | disposition home or self-care (01) ==
LOC: JER 13:26
DX: K59.00 Constipation, unspecified (principal); I10 Essential (primary) hypertension; E78.00 Pure hypercholesterolemia, unspecified; N40.0 Benign prostatic hyperplasia without lower urinary tract symptoms; I25.10 Atherosclerotic heart disease of native coronary artery without angina pectoris; E11.9 Type 2 diabetes mellitus without complications
CPT/HCPCS: 74019-TC-FY; 99283-25

== ENCOUNTER 2019-02-21 10:51 | Emergency (ER) | payer BC, OTHER ==
[2019-02-21 11:01] VITALS: BP 121/68; PULSE 67; TEMP 97.9; BMI 23.6
[2019-02-21] MEDS ORDERED: DIPHTH,PERTUSS(ACELL),TET 0.5 ML DISP.SYRIN IM ONE ×2 (11:07→11:10)
[2019-02-21] MEDS ORDERED: ACETAMINOPHEN 325 MG TABLET (FP) PO ONE (11:40)
[2019-02-21] MEDS ORDERED: ACETAMINOPHEN 325 MG TABLET (FP) ONE (11:43)
--- NOTE | 2019-02-21 11:45 | PDOC ---
History of Present Illness - General Chief Complaint: Pain, Acute Stated Complaint: LT KNEE PAIN Time Seen by Provider: 02/21/19 11:04 History Source: Patient Exam Limitations: No Limitations - History of Present Illness Initial Comments: 02/21/19 11:10 83-year-old male presents to ED with complaints of mechanical fall yesterday. Patient states was walking when he miscalculated the curb causing him to land on his left elbow and left knee. Patient still continues with discomfort and came to emergency room for further evaluation. Patient denies LOC hitting his head abdominal pain back pain but does complain of mild hip pain with ambulation. Patient took no medications and unsure of his last tetanus. Occurred: reports: yesterday Severity: reports: mild Pain Location: reports: lower extremity, upper extremity Method of Injury: Yes: fall Loss of Consciousness: no loss of consciousness Associated Symptoms (Fall): denies symptoms, other Past History - Travel Traveled outside of the country in the last 30 days: No Close contact w/someone who was outside of country & ill: No - Past Medical History Allergies/Adverse Reactions: Allergies Allergy/AdvReac Type Severity Reaction Status Date / Time No Known Allergies Allergy Verified 02/21/19 10:59 Home Medications: Ambulatory Orders Alpha Lipoic Acid 200 mg PO TID 12/17/12 Ascorbate Calcium/Bioflav [Cande-C 500 mg Tablet] 1 each PO BID 12/17/12 Aspirin [ASA -] 81 mg PO DAILY 12/17/12 Fenofibrate [Lipofen] 160 mg PO DAILY 12/17/12 Ferrous Fumarate 65 mg PO BID 12/17/12 Metoprolol Tartrate [Lopressor -] 25 mg PO BID 12/17/12 [place]-3 Acid Ethyl Esters [Lovaza -] 2 gm PO BID 12/17/12 Ubidecarenone [Co Q-10] 15 ml PO DAILY 12/17/12 Sitagliptin Phosphate [Januvia] 25 mg PO HS 08/25/16 Cholecalciferol (Vitamin D3) [Vitamin D3] 2,000 unit PO BID 11/27/16 Glipizide [Glipizide ER] 10 mg PO BID 11/27/16 Loperamide HCl [Imodium -] 2 mg PO PRN PRN 11/27/16 Multivitamin with Minerals [Icaps Plus] 1 each PO DAILY 11/27/16 Saw [place] Fruit [Saw [place]] 450 mg PO DAILY 11/27/16 Vitamin B Complex 1 tab PO DAILY 11/27/16 Vitamin E 400 unit PO DAILY 11/27/16 Rosuvastatin [Crestor -] 10 mg PO DAILY 06/07/17 Albuterol 2.5/Ipratropium 0.5 [Duoneb -] 1 amp NEB QIDR amp 06/11/17 Abacavir Sulfate [Ziagen -] 300 mg PO BID 06/18/17 Clopidogrel Bisulfate [Plavix] 75 mg PO DAILY 03/21/18 Fluticasone Prop 0.05% Nasal [Flonase -] 1 - 2 spray NS DAILY #1 spray.pump Carboxymethylcellulos/Glycerin [Lubricant 0.5-0.9% Eye Drops] 15 ml OP PRN 7 Days #1 drops 03/22/18 Docusate Sodium [Colace -] 100 mg PO TID #21 capsule 10/01/18 Lamivudine Oral Soln [Epivir Oral Solution -] 50 mg PO DAILY 10/01/18 Melatonin 3 mg PO HS 10/01/18 Pioglitazone HCl [Actos] 30 mg PO DAILY 10/01/18 Polyethylene Glycol 3350 [Miralax (For Daily Use) -] 17 gm PO DAILY #1 bottle Tamsulosin HCl [Flomax] 0.4 mg PO DAILY 10/01/18 Mineral Oil Enema [Fleet Mineral Oil Rectal Enema] 133 ml NR DAILY PRN #3 enema 02/12/19 Anemia: No Asthma: No Cancer: No Cardiac Disorders: Yes (CAD) CVA: Yes (TIA) COPD: No CHF: No DVT: No Diabetes: Yes Disorders: Yes (BPH) HTN: Yes Hypercholesterolemia: Yes Liver Disease: No Seizures: No - Surgical History Abdominal Surgery: Yes (ANAL FISSURE) Appendectomy: No Cardiac Surgery: Yes (CARDIAC STENT; carotid endarterectomy) Cholecystectomy: No Neurologic Surgery: No - Immunization History Td Vaccination: (unsure) Immunization Up to Date: Yes - Suicide/Smoking/Psychosocial Hx Smoking Status: No Smoking History: Never smoked Years of Tobacco Use: 0 Have you smoked in the past 12 months: No Number of Cigarettes Smoked Daily: 0 Cigars Per Day: 0 Hx Alcohol Use: No Drug/Substance Use Hx: No Substance Use Type: Alcohol Hx Substance Use Treatment: No Patient Lives Alone: Yes Lives with/in: lives alone Trauma Specific PMHX - Complaint Specific PMHX Arthritis: No Review of Systems - Review of Systems Able to Perform ROS?: Yes Constitutional: No: Symptoms Reported HEENTM: No: Symptoms Reported Respiratory: No: Symptoms reported Cardiac (ROS): No: Symptoms Reported ABD/GI: No: Symptoms Reported : No: Symptoms Reported Musculoskeletal: Yes: Joint Pain Neurological: No: Symptoms reported Hematologic/Lymphatic: No: Symptoms Reported *Physical Exam - Vital Signs Last Vital Signs Temp Pulse Resp BP Pulse Ox 97.9 F 67 18 121/68 98 02/21/19 10:59 02/21/19 10:59 02/21/19 10:59 02/21/19 10:59 02/21/19 10:59 - Physical Exam General Appearance: Yes: Nourished, Appropriately Dressed. No: Apparent Distress Neck: negative: Tender, Decreased range of motion Respiratory/Chest: positive: Lungs Clear, Normal Breath Sounds. negative: Chest Tender, Respiratory Distress, Accessory Muscle Use Cardiovascular: positive: Regular Rhythm, Regular Rate. negative: Murmur Gastrointestinal/Abdominal: positive: Soft. negative: Tenderness Extremity: positive: Normal Capillary Refill, Normal Inspection, Normal Range of Motion, Tender (over left epicondyles) Integumentary: positive: Other (superficial abrasions noted over the right patella and right elbow) Neurologic: positive: Motor Strength 5/5 (ambulatory with cane) ED Treatment Course - RADIOLOGY Radiology Studies Ordered: Category Date Time Status ELBOW-LEFT [RAD] Stat Radiology 02/21/19 11:07 Completed PELVIS [RAD] Stat Radiology 02/21/19 11:08 Completed - Medications Given in the ED: ED Medications Discontinued Medications Generic Name Dose Route Start Last Admin Trade Name Freq PRN Reason Stop Dose Admin Diphtheria/Tetanus/Acell Pertussis 0.5 ml 02/21/19 11:07 02/21/19 11:16 Boostrix - IM 02/21/19 11:08 0.5 ml .ONCE ONE Administration Medical Decision Making - Medical Decision Making 02/21/19 11:13 Chief complaint: Status post fall now here with left elbow left knee and left hip pain unknown last tetanus on no blood thinners no LOC no head injury Exam: Abrasions noted to left knee and left elbow no tenderness or decreased range of motion of the left patella patient tender over the left epicondyle. No reproducible left hip pain but does complain of discomfort 02/21/19 11:45 X-ray Negative for acute findings. Patient given Tylenol will discharge home with recommendations keep abrasions clean apply Neosporin or bacitracin and leaving open to air *DC/Admit/Observation/Transfer Diagnosis at time of Disposition: Elbow abrasion, Hip pain, left - Discharge Dispostion Disposition: HOME Condition at time of disposition: Good - Referrals Referrals: Fred Marks MD [Primary Care Provider] - - Patient Instructions Printed Discharge Instructions: DI for Elbow Pain, DI for Abrasion Additional Instructions: Take Tylenol 650 mg every 8 hours for discomfort and inflammation. Apply bacitracin to area keeping area open to air after wiping and cleansing with soap and water. - Post Discharge Activity
== END 2019-02-21 12:05 | disposition home or self-care (01) ==
LOC: JER 10:51
PROC: 3E0234Z Introduction of Serum, Toxoid and Vaccine into Muscle, Percutaneous Approach (ICD-10-PCS; principal; 2019-02-21)
DX: S50.312A Abrasion of left elbow, initial encounter (principal); M25.552 Pain in left hip; W01.0XXA Fall on same level from slipping, tripping and stumbling without subsequent striking against object, initial encounter; Y93.01 Activity, walking, marching and hiking; Y92.480 Sidewalk as the place of occurrence of the external cause; I10 Essential (primary) hypertension; E78.00 Pure hypercholesterolemia, unspecified; I25.10 Atherosclerotic heart disease of native coronary artery without angina pectoris; E11.9 Type 2 diabetes mellitus without complications; Z86.73 Personal history of transient ischemic attack (TIA), and cerebral infarction without residual deficits; N40.0 Benign prostatic hyperplasia without lower urinary tract symptoms; Z95.5 Presence of coronary angioplasty implant and graft; Z79.02 Long term (current) use of antithrombotics/antiplatelets
CPT/HCPCS: 72170-TC-FY; 73070-TC-LT-FY; 90471; 90715; 99281-25

== ENCOUNTER 2020-02-01 11:27 | Observation (INO) | payer OTHER ==
[2020-02-01 11:35] VITALS: BMI 24.0
--- NOTE | 2020-02-01 11:37 | PDOC ---
Rapid Medical Evaluation Time Seen by Provider: 02/01/20 11:31 Medical Evaluation: Allergies Allergy/AdvReac Type Severity Reaction Status Date / Time No Known Allergies Allergy Verified 12/13/19 14:45 02/01/20 11:33 Pt is an 84 y/o M who presents to the ER for a syncope and fall last night at 7pm. He states he was standing and got very lightheaded and fell. He does not remember falling. States he fell on the L side. Admits to associated chest pain and lightheadedness. Denies fevers, chills, headache. Exam: RRR S1S2 present. Lung sounds CTAB, Orders: syncope work up, defer imaging to provider Pt to proceed to the ER for further evaluation Discharge Disposition - Diagnosis Syncope - Referrals - Patient Instructions - Post Discharge Activity
--- NOTE | 2020-02-01 11:50 | PDOC ---
History of Present Illness - General Chief Complaint: Injury Stated Complaint: RIB PAIN Time Seen by Provider: 02/01/20 11:31 History Source: Patient Exam Limitations: No Limitations - History of Present Illness Initial Comments: 02/01/20 12:34 HPI: This is an 84 y/o male with a PMH of CAD s/p stent x4, DM, HLD, CKD, and HIV on HAART presenting to the ED due to a fall last night. Per the patient, he normally ambulates with a cane, and last night he was walking and lost his balance and fell straight down on the floor. He denies any proceeding chest p ain, lightheadedness, or SOB and said that he has balance issues due to lumbar spine pain. He denies hitting his head on the floor, or LOC, and sat there for a few minutes but was then able to get up. He immediately began having upper abdominal pain/LUQ pain which radiated around to his back. He came in today because the pain was not improving. ROS: GENERAL/CONSTITUTIONAL: No fever/chills. HEAD, EYES, EARS, NOSE AND THROAT: No blurry vision. CARDIOVASCULAR: No chest pain or shortness of breath. RESPIRATORY: No cough, wheezing, or hemoptysis. GASTROINTESTINAL: No nausea, vomiting GENITOURINARY: No dysuria, frequency, or change in urination. MUSCULOSKELETAL: Yes cervical and lumbar back pain (states chronic) NEUROLOGIC: No headache, vertigo, loss of consciousness, or change in strength/sensation. HEMATOLOGIC/LYMPHATIC: On aspirin and clopidogrel PMH: CAD s/p stent x4, DM, HLD, CKD, and HIV on HAART Meds: See nurses note Allergies: Denied PE: GENERAL: Awake, alert, and fully oriented, in no acute distress. Patient sitting up in bed, conversing normally. HEAD: Normocephalic, atraumatic EYES: PERRL, EOMI NECK: Decreased ROM (states chronic), Mild cervical tenderness. Neck supple, no JVD, or masses LUNGS: Breath sounds equal, clear to auscultation bilaterally. No wheezes, and no crackles HEART: Regular rate and rhythm, normal S1 and S2 ABDOMEN: Soft normoactive bowel sounds. Mild tenderness RUQ. No guarding, no rebound. EXTREMITIES: No edema or tenderness NEUROLOGICAL: Cranial nerves II through XII grossly intact. Normal speech. SKIN: Warm, Dry, normal turgor, no rashes or lesions noted. SKELETAL: Mild tenderness to cervical and thoracic spine MDM: 02/01/20 13:13 This is an 84 y/o male with a PMH of CAD s/p stent x4, DM, HLD, CKD, and HIV on HAART presenting to the ED due to a fall last night. Patient denies precipitating event, LOC, head trauma. Patient reports that he has previous cervical and lumbar pain. - CT head, chest, abdomen/pelvis, cervical, thoracic, lumbar spine - EKG - Cardiac profile - CBC - CMP 02/01/20 13:25 CBC WBC 7.9 K/mm3 (4.0-10.0) 02/01/20 12:09 RBC 4.07 M/mm3 (4.00-5.60) 02/01/20 12:09 Hgb 13.6 GM/dL (11.7-16.9) 02/01/20 12:09 Hct 40.1 % (35.4-49) 02/01/20 12:09 MCV 98.7 fl (80-96) H 02/01/20 12:09 MCH 33.5 pg (25.7-33.7) 02/01/20 12:09 MCHC 33.9 g/dl (32.0-35.9) 02/01/20 12:09 RDW 12.8 % (11.9-15.9) D 02/01/20 12:09 Plt Count 177 K/MM3 (134-434) 02/01/20 12:09 MPV 7.8 fl (7.5-11.1) 02/01/20 12:09 Absolute Neuts (auto) 4.1 K/mm3 (1.5-8.0) 02/01/20 12:09 Neutrophils % 51.9 % (42.8-82.8) D 02/01/20 12:09 Lymphocytes % 33.9 % (8-40) D 02/01/20 12:09 Monocytes % 8.7 % (3.8-10.2) 02/01/20 12:09 Eosinophils % 5.1 % (0-4.5) H D 02/01/20 12:09 Basophils % 0.4 % (0-2.0) 02/01/20 12:09 Nucleated RBC % 0 % (0-0) 02/01/20 12:09 No leukocytosis, no anemia. CMP Sodium 138 mmol/L (136-145) 02/01/20 12:09 Potassium 4.5 mmol/L (3.5-5.1) 02/01/20 12:09 Chloride 102 mmol/L (98-107) 02/01/20 12:09 Carbon Dioxide 29 mmol/L (21-32) 02/01/20 12:09 Anion Gap 7 MMOL/L (8-16) L 02/01/20 12:09 BUN 21.9 mg/dL (7-18) H 02/01/20 12:09 Creatinine 2.2 mg/dL (0.55-1.3) H 02/01/20 12:09 Est GFR (CKD-EPI)AfAm 31.18 02/01/20 12:09 Est GFR (CKD-EPI)NonAf 26.90 02/01/20 12:09 Random Glucose 333 mg/dL (74-106) H 02/01/20 12:09 Calcium 9.6 mg/dL (8.5-10.1) 02/01/20 12:09 Magnesium 2.3 mg/dL (1.8-2.4) 02/01/20 12:09 Total Bilirubin 0.5 mg/dL (0.2-1) 02/01/20 12:09 AST 20 U/L (15-37) 02/01/20 12:09 ALT 27 U/L (13-61) 02/01/20 12:09 Alkaline Phosphatase 67 U/L (45-117) 02/01/20 12:09 Creatine Kinase 59 U/L (26-308) 02/01/20 12:09 Troponin I < 0.02 ng/ml (0.00-0.05) 02/01/20 12:09 Total Protein 7.4 g/dl (6.4-8.2) 02/01/20 12:09 Albumin 3.6 g/dl (3.4-5.0) 02/01/20 12:09 SAIMA - Creatinine 2.2 Troponin negative 02/01/20 15:[address]: IMPRESSION: Straightening of the cervical spine in satisfactory alignment without gross evidence of a fracture or subluxation. Multilevel degenerative disc disease, as described above with calcification of the posterior longitudinal ligament and disc osteophyte complex slightly indenting the left anterior surface of the cervical cord at C4 and C5 level as well as at C6-C7 level where it is impinging left C7 nerve root as it enters the left foramen THORACIC AND LUMBAR CT: IMPRESSION: No compression fracture or subluxation is identified. Intervertebral disc spaces are intact. Mild atelectatic changes in the dependent portion of the lower lobes. Cannot rule out superimposed infiltrates. Correlate clinically and follow-up would be helpful for further evaluation CT scan of the lumbar spine without intravenous contrast. Coronal and sagittal reconstruction images were obtained. The height and alignment of the vertebral bodies appear unremarkable without gross evidence of a compression fracture or subluxation. L1-L2 mild to moderate degenerative disc disease with vacuum phenomena. Mild broadbase disc bulge is present. There is prominent anterior spondylosis mainly at L2-L3 and L3-L4 level. Multilevel bilateral facet hypertrophy mainly at L4-L5 and L5-S1 level Soft tissue windows demonstrates multiple diverticula in included portion of the mid sigmoid colon without evidence of acute diverticulitis Impression See discussion above. No compression fracture or subluxation are identified. Degenerative disc disease mainly at L1-L2 and L5-S1 level. Moderate to marked bilateral facet hypertrophy at L4-L5 and L5-S1 level Patient will be admitted for syncope workup/obs. 02/01/20 17:[address] Verde who accepted admission. Past History - Medical History Allergies/Adverse Reactions: Allergies Allergy/AdvReac Type Severity Reaction Status Date / Time No Known Allergies Allergy Verified 12/13/19 14:45 Home Medications: Ambulatory Orders Alpha Lipoic Acid 200 mg PO TID 12/17/12 Ascorbate Calcium/Bioflav [Cande-C 500 mg Tablet] 1 each PO TID 12/17/12 Aspirin [ASA -] 81 mg PO DAILY 12/17/12 Fenofibrate [Lipofen] 160 mg PO DAILY 12/17/12 Ferrous Fumarate 65 mg PO DAILY 12/17/12 Sitagliptin Phosphate [Januvia] 25 mg PO DAILY 08/25/16 Cholecalciferol (Vitamin D3) [Vitamin D3] 2,000 unit PO BID 11/27/16 Multivitamin with Minerals [Icaps Plus] 1 each PO DAILY 11/27/16 Vitamin B Complex 1 tab PO DAILY 11/27/16 Vitamin E 400 unit PO DAILY 11/27/16 Rosuvastatin [Crestor -] 10 mg PO DAILY 06/07/17 Carboxymethylcellulos/Glycerin [Lubricant 0.5-0.9% Eye Drops] 15 ml OP PRN 7 Days #1 drops 03/22/18 Melatonin 3 mg PO HS 10/01/18 Pioglitazone HCl [Actos] 30 mg PO DAILY 10/01/18 Tamsulosin HCl [Flomax] 0.4 mg PO DAILY 10/01/18 Clopidogrel Bisulfate [Clopidogrel] 75 mg PO DAILY 12/13/19 Darunavir/Cobicistat [Prezcobix 800 mg-150 mg Tablet] 1 tab PO DAILY 12/13/19 Fluticasone Prop 0.05% Nasal [Flonase -] 1 spray NS BID 12/13/19 Icosapent Ethyl [Vascepa] 2 cap PO BID 12/13/19 Dolutegravir Sodium [Tivicay] 50 mg PO DAILY 12/14/19 Lamivudine 50 mg PO DAILY 12/14/19 Glipizide 10 mg PO BID 12/15/19 Metoprolol Tartrate 25 mg PO BID 12/15/19 Darunavir/Cobicistat [Prezcobix 800 mg-150 mg Tablet] 1 each PO DAILY@0900 tablet 12/17/19 Dolutegravir Sodium [Tivicay] 50 mg PO DAILY tablet 12/17/19 Melatonin 5 mg PO HS PRN tab 12/17/19 Anemia: No Asthma: No Cancer: No Cardiac Disorders: Yes (CAD) CVA: Yes (TIA) COPD: No CHF: No DVT: No Dementia: No Diabetes: Yes GI Disorders: No Disorders: Yes (BPH) HTN: Yes Hypercholesterolemia: Yes Liver Disease: No Seizures: No Thyroid Disease: No - Surgical History Abdominal Surgery: Yes (ANAL FISSURE) Appendectomy: No Cardiac Surgery: Yes (CARDIAC STENT; carotid endarterectomy) Cholecystectomy: No Lung Surgery: No Neurologic Surgery: No Orthopedic Surgery: No - Immunization History Td Vaccination: (unsure) Immunization Up to Date: Yes - Psycho-Social/Smoking History Smoking Status: No Smoking History: Never smoked Years of Tobacco Use: 0 Have you smoked in the past 12 months: No Number of Cigarettes Smoked Daily: 0 Cigars Per Day: 0 Information on smoking cessation initiated: No - Substance Abuse Hx (Audit-C & DAST Scrn) How often the patient has a drink containing alcohol: Never Score: In Men: 4 or > Positive; In Women: 3 or > Positive: 0 Screen Result (Pos requires Nsg. Audit-10AR): Negative In the last yr the pt used illegal drug/Rx for NonMed reason: No Score: Yes response is considered Positive: 0 Screen Result (Positive result requires Nsg. DAST-10): Negative *Physical Exam - Vital Signs Last Vital Signs Temp Pulse Resp BP Pulse Ox 98.1 F 84 16 109/51 L 98 02/01/20 11:32 02/01/20 11:32 02/01/20 11:32 02/01/20 11:32 02/01/20 11:32 Heart Score/ECG Review - ECG Intrepretation Comment:: 02/01/20 18:33 EKG sinus rhythm with premature atrial complexes. Possible left atrial enlargement. Right bundle branch block. No ST elevations or t-wave inversions. Vent rate 76bpm, AK interval 178ms, QRS duration 154ms, QT/QTc 436/490 ED Treatment Course - LABORATORY CBC & Chemistry Diagram: 02/01/20 12:09 02/01/20 12:09 Discharge - Discharge Information Problems reviewed: Yes Clinical Impression/Diagnosis: Syncope Qualifiers: Encounter type: initial encounter Qualified Code(s): T67.1XXA - Heat syncope, initial encounter [id number] kidney injury Qualifiers: Acute renal failure type: unspecified Chronic kidney disease stage: stage 3 (moderate) Qualified Code(s): N17.9 - Acute kidney failure, unspecified Condition: Stable - Admission Yes - Follow up/Referral - Patient Discharge Instructions - Post Discharge Activity
[2020-02-01 12:14] LABS: BASO % 0.4 % (0-2.0); EOS % 5.1 % (0-4.5); HEMATOCRIT 40.1 % (35.4-49); HEMOGLOBIN 13.6 GM/dL (11.7-16.9); LYMPH % 33.9 % (8-40); MCH 33.5 pg (25.7-33.7); MCHC 33.9 g/dl (32.0-35.9); MEAN CELL VOLUME 98.7 fl (80-96); MEAN PLT VOLUME 7.8 fl (7.5-11.1); MONO % 8.7 % (3.8-10.2); NEUT % 51.9 % (42.8-82.8); PLATELET COUNT 177 K/MM3 (134-434); RBC 4.07 M/mm3 (4.00-5.60); RDW 12.8 % (11.9-15.9); WHITE BLOOD COUNT 7.9 K/mm3 (4.0-10.0)
[2020-02-01 12:18] LABS: EPI CELLS 4 /uL (0-25.1); HYALINE CASTS 2 /uL (0-3.1); URINE APPEARANCE CLEAR; URINE BACTERIA 9 /uL (0-1359); URINE BILIRUBIN NEGATIVE (NEGATIVE); URINE COLOR YELLOW; URINE GLUCOSE (UA) 2+ (NEGATIVE); URINE KETONE NEGATIVE (NEGATIVE); URINE LEUK ESTERASE NEGATIVE (NEGATIVE); URINE NITRITE NEGATIVE (NEGATIVE); URINE PROTEIN 1+ (NEGATIVE); URINE RBC 3 /uL (0-23.9); URINE UROBILINOGEN 0.2 mg/dL (0.2-1.0); URINE WBC 2 /uL (0-25.8)
[2020-02-01 12:20] LABS: INR 0.98 (0.83-1.09); PROTHROMBIN TIME (PATIENT) 11.6 SEC (9.7-13.0)
[2020-02-01 12:33] LABS: ALBUMIN 3.6 g/dl (3.4-5.0); ALK PHOS 67 U/L (45-117); ANION GAP 7 MMOL/L (8-16); BILIRUBIN,TOTAL 0.5 mg/dL (0.2-1); BLOOD UREA NITROGEN 21.9 mg/dL (7-18); CALCIUM 9.6 mg/dL (8.5-10.1); CHLORIDE 102 mmol/L (98-107); CO2 29 mmol/L (21-32); CREATININE 2.2 mg/dL (0.55-1.3); GLUCOSE,RANDOM 333 mg/dL (74-106); MAGNESIUM 2.3 mg/dL (1.8-2.4); POTASSIUM 4.5 mmol/L (3.5-5.1); SGOT/AST 20 U/L (15-37); SGPT/ALT 27 U/L (13-61); SODIUM 138 mmol/L (136-145); TOT PROT 7.4 g/dl (6.4-8.2)
[2020-02-01] MEDS ORDERED: ACETAMINOPHEN 1000 MG/100 ML VIAL (NON FORMULARY) IVPB ONE (12:42)
[2020-02-01] MEDS ORDERED: LIDOCAINE 5% TOPICAL PATCH TP ONE (13:00)
[2020-02-01] MEDS ORDERED: ACETAMINOPHEN INJECTION 100 ML IVPB ONE (13:05)
[2020-02-01] MEDS ORDERED: LIDOCAINE 5% TOPICAL PATCH ONE (13:06)
--- NOTE | 2020-02-01 13:25 | EKG ---
Test Reason : Blood Pressure : / mmHG Vent. Rate : 076 BPM Atrial Rate : 076 BPM P-R Int : 178 ms QRS Dur : 154 ms QT Int : 436 ms P-R-T Axes : 040 081 007 degrees QTc Int : 490 ms SINUS RHYTHM WITH PREMATURE ATRIAL COMPLEXES POSSIBLE LEFT ATRIAL ENLARGEMENT RIGHT BUNDLE BRANCH BLOCK ABNORMAL ECG WHEN COMPARED WITH ECG OF 13-DEC-2019 14:48, PREMATURE ATRIAL COMPLEXES ARE NOW PRESENT Confirmed by MD WILMER, ARTHUR ([id number]) on 02/01/2020 1:25:40 PM Referred By: Confirmed By:ARTHUR GUILLEN MD
--- NOTE | 2020-02-01 13:55 | PDOC ---
Documentation entered by Rosalva Valera SCRIBE, acting as scribe for Junior Jha MD. Junior Jha MD: This documentation has been prepared by the ripibeSoto Ana, SCRIBE, under my direction and personally reviewed by me in its entirety. I confirm that the documentation accurately reflects all work, treatment, procedures, and medical decision making performed by me. Attending Attestation - Resident Resident Name: Vita Lauren - ED Attending Attestation I have performed the following: I have examined & evaluated the patient, The case was reviewed & discussed with the resident, I agree w/resident's findings & plan, Exceptions are as noted - HPI HPI: 02/01/20 12:03 Patient is an 84 year old male with a significant past medical history of HIV, CAD s/p stent x4, emphysema, diabetes, hypertension, hyperlipidemia, Asthma, and COPD, who presents to the ED with a fall since last night. Patient stated that he regularly walks with his cane but "lost balance" last night (due to lumbar spine pain) and fell onto the floor - was able to get up on his own after a while. Patient also endorses upper abdominal pain which has moved to his backside. Patient denies: any head injury, LOC, lightheadedness, SOB, chest pain, or any other related symptoms. Allergies: NKDA - Physicial Exam PE: 02/01/20 12:05 Vitals: Triage Vital signs reviewed General Appearance: no acute distress, well nourished well developed, Head: Atraumatic, normocephalic Eyes: Pupils equal reactive round, extraocular movement intact Neck: Supple;No Nuchal rigidity Chest Wall: Nontender Cardiac: Regular rate and rhythm, no murmurs, no rubs, no gallops, Lungs: Clear to auscultation bilateral, good air movement bilaterally, Abdomen: Soft, nondistended, normal bowel sounds, nontender to palpation Extremities: Full range of motion to all extremities, no cyanosis, clubbing, or edema Skin: Warm and dry, no rashes or lesions, no petechiae Neuro: AOX3; Cranial Nerves 2-12 grossly c intact, Strength intact to all extremities, Sensation intact to all extremities Psych: normal mood, normal affect 02/01/20 14:29 - Medical Decision Making 02/01/20 14:30 EKG performed at 1150 demonstrates normal sinus rhythm right bundle branch block no ST elevations no T wave inversions Interpreted by me. 02/01/20 16:27 Patient is an 84 year old male with a significant past medical history of HIV, CAD s/p stent x4, emphysema, diabetes, hypertension, hyperlipidemia, Asthma, and COPD, who presents to the ED with a fall since last night. Patient stated that he regularly walks with his cane but "lost balance" last night (due to lumbar spine pain) and fell onto the floor - was able to get up on his own after a while. Patient also endorses upper abdominal pain which has moved to his backside. 02/01/20 16:28 Syncope versus mechanical fall pain throughout spine CAT scans negative for acute pathology Labs notable for acute kidney injury We will hydrate overnight and observe for syncope on telemetry Discharge - Discharge Information Problems reviewed: Yes Clinical Impression/Diagnosis: Syncope Qualifiers: Syncope type: unspecified Qualified Code(s): R55 - Syncope and collapse [id number] kidney injury Qualifiers: Acute renal failure type: unspecified Chronic kidney disease stage: stage 3 (moderate) Qualified Code(s): N17.9 - Acute kidney failure, unspecified; N18.3 - Chronic kidney disease, stage 3 (moderate) Condition: Stable Disposition: HOME - Follow up/Referral - Patient Discharge Instructions - Post Discharge Activity
[2020-02-01] MEDS ORDERED: LACTATED RINGERS SOLUTION 1000 ML INFUS.BAG IV ONE (16:27)
--- NOTE | 2020-02-01 17:45 | HP ---
Admitting History and Physical - Admission Chief Complaint: Acute syncope and collapse History of Present Illness: This 84 yr old w/m with PMH of CAD, s/p stent x4, DM, HLD, HIV, CKD admitted via ER with an acute syncope and collapse, acute easy fatigability, acute fracture of T12 vertebra. 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 TESTER: Yes: Peripheral Neuropathy Cardiovascular: Yes: CAD, Hyperlipdemia Pulmonary: No: Asthma, Bronchitis, Cancer, COPD, O2 Dependent, Pneumonia, Previ ously Intubated, Pulmonary Embolus, Pulmonary Fibrosis, Sleep Apnea, Other Gastrointestinal: No: Ascites, Cancer, Constipation, Crohn's Disease, Diverticulitis, Diverticulosis, Esophageal Varices, Gastritis, GERD, GI Bleed, Hemorrhoids, Hiatal Hernia, Inflamatory Bowel Disease, Irritable Bowel Disease, Pancreatitis, Peptic Ulcer Disease, Ulcerative Colitis, Other Hepatobiliary: No: Cirrhosis, Cholelithiasis, Cholecystitis, Choledocholithiasis, Hepatitis A, Hepatitis B, Hepatitis C, Other Renal/: Yes: Renal Inusuff Heme/Onc: No: Anemia, B12 Deficiency, Bleeding Disorder, Cancer, Current Chemo therapy, Current Radiation Therapy, Hemochromatosis, Hypercoaguable State, Myeloproliferative Synd, Sickle Cell Disease, Sickle Cell Trait, Thrombocytopenia, Other Infectious Disease: Yes: HIV Psych: No: Addictions, Anxiety, Bipolar, Depression, Panic, Psychosis, Schizophrenia, Other Musculoskeletal: Yes: Chronic low back pain, Osteoarthritis Rheumatology: No: Fibromyalgia, Gout, Lupus, Rheumatoid Arthritis, Sarcoidosis, Vasculitis, Other ENT: No: Allergic Rhinitis, Sinusitis, Other Endocrine: Yes: Diabetes Mellitus Dermatology: No: Basal Cell, Cellulitis, Eczema, Melanoma, Psoriasis, Squamous Cell, Other - Past Surgical History Past Surgical History: Yes: Carotid Endarterectomy (right) - Smoking History Smoking history: Never smoked Have you smoked in the past 12 months: No Aproximately how many cigarettes per day: 0 - Alcohol/Substance Use Hx Alcohol Use: No - Social History ADL: Independent History of Recent Travel: No Home Medications - Allergies Allergies/Adverse Reactions: Allergies Allergy/AdvReac Type Severity Reaction Status Date / Time No Known Allergies Allergy Verified 12/13/19 14:45 - Home Medications Home Medications: Ambulatory Orders Alpha Lipoic Acid 200 mg PO TID 12/17/12 Ascorbate Calcium/Bioflav [Cande-C 500 mg Tablet] 1 each PO TID 12/17/12 Aspirin [ASA -] 81 mg PO DAILY 12/17/12 Fenofibrate [Lipofen] 160 mg PO DAILY 12/17/12 Ferrous Fumarate 65 mg PO DAILY 12/17/12 Sitagliptin Phosphate [Januvia] 25 mg PO DAILY 08/25/16 Cholecalciferol (Vitamin D3) [Vitamin D3] 2,000 unit PO BID 11/27/16 Multivitamin with Minerals [Icaps Plus] 1 each PO DAILY 11/27/16 Vitamin B Complex 1 tab PO DAILY 11/27/16 Vitamin E 400 unit PO DAILY 11/27/16 Rosuvastatin [Crestor -] 10 mg PO DAILY 06/07/17 Carboxymethylcellulos/Glycerin [Lubricant 0.5-0.9% Eye Drops] 15 ml OP PRN 7 Days #1 drops 03/22/18 Melatonin 3 mg PO HS 10/01/18 Pioglitazone HCl [Actos] 30 mg PO DAILY 10/01/18 Tamsulosin HCl [Flomax] 0.4 mg PO DAILY 10/01/18 Clopidogrel Bisulfate [Clopidogrel] 75 mg PO DAILY 12/13/19 Darunavir/Cobicistat [Prezcobix 800 mg-150 mg Tablet] 1 tab PO DAILY 12/13/19 Fluticasone Prop 0.05% Nasal [Flonase -] 1 spray NS BID 12/13/19 Icosapent Ethyl [Vascepa] 2 cap PO BID 12/13/19 Dolutegravir Sodium [Tivicay] 50 mg PO DAILY 12/14/19 Lamivudine 50 mg PO DAILY 12/14/19 Glipizide 10 mg PO BID 12/15/19 Metoprolol Tartrate 25 mg PO BID 12/15/19 Darunavir/Cobicistat [Prezcobix 800 mg-150 mg Tablet] 1 each PO DAILY@0900 tablet 12/17/19 Dolutegravir Sodium [Tivicay] 50 mg PO DAILY tablet 12/17/19 Melatonin 5 mg PO HS PRN tab 12/17/19 Review of Systems - Review of Systems Constitutional: reports: Weakness, Other (fatigue) Eyes: reports: No Symptoms HENT: reports: No Symptoms Neck: reports: Other (cervicalgia) Cardiovascular: reports: No Symptoms Respiratory: reports: No Symptoms Gastrointestinal: reports: No Symptoms Genitourinary: reports: No Symptoms Breasts: reports: No Symptoms Reported Musculoskeletal: reports: Back Pain, Muscle Weakness Integumentary: reports: No Symptoms Neurological: reports: Numbness, Parasthesia, Unsteady Gait, Weakness, Other (diabetic peripheral neuropathy) Endocrine: reports: No Symptoms Hematology/Lymphatic: reports: No Symptoms Psychiatric: reports: No Symptoms Physical Examination Vital Signs: Vital Signs Temperature 98.1 F 02/01/20 11:32 Pulse Rate 84 02/01/20 11:32 Respiratory Rate 16 02/01/20 11:32 Blood Pressure 109/51 L 02/01/20 11:32 O2 Sat by Pulse Oximetry (%) 98 02/01/20 11:32 Constitutional: Yes: Well Nourished, Calm, Mild Distress Eyes: Yes: Conjunctiva Clear, EOM Intact HENT: Yes: Atraumatic, Normocephalic Neck: Yes: Supple, Trachea Midline Cardiovascular: Yes: Regular Rate and Rhythm Respiratory: Yes: Regular, CTA Bilaterally Gastrointestinal: Yes: Normal Bowel Sounds, Soft ...Rectal Exam: Yes: Deferred Renal/: Yes: WNL Breast(s): Yes: WNL Musculoskeletal: Yes: Back Pain, Muscle Weakness Extremities: Yes: Other (bilateral diabetic peripheral neuropathy) Edema: No Peripheral Pulses WNL: Yes Integumentary: Yes: WNL Neurological: Yes: Alert, Oriented, Numbness, Paresthesia, Unsteady Gait, Weakness ...Motor Strength: LUE (generalized muscle weakness of all extremities) Psychiatric: Yes: Alert, Oriented Labs: CBC, BMP 02/01/20 12:09 02/01/20 12:09 Imaging - Results Cat Scan: Report Reviewed Other: Report Reviewed (lab data reviewed) Problem List - Problems (1) Syncope and collapse Code(s): R55 - SYNCOPE AND COLLAPSE (2) Generalized muscle weakness Code(s): M62.81 - MUSCLE WEAKNESS (GENERALIZED) (3) Fatigue Code(s): R53.83 - OTHER FATIGUE (4) Dehydration Code(s): E86.0 - DEHYDRATION (5) Tqxsq-em-opepoye kidney injury Code(s): N17.9 - ACUTE KIDNEY FAILURE, UNSPECIFIED; N18.9 - CHRONIC KIDNEY DISEASE, UNSPECIFIED Qualifiers: Acute renal failure type: unspecified Chronic kidney disease stage: stage 3 (moderate) Qualified Code(s): N17.9 - Acute kidney failure, unspecified; N18.3 - Chronic kidney disease, stage 3 (moderate) (6) Syncope Code(s): R55 - SYNCOPE AND COLLAPSE Qualifiers: Encounter type: initial encounter Qualified Code(s): T67.1XXA - Heat syncope, initial encounter (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 (8) Bronchitis Code(s): J40 - BRONCHITIS, NOT SPECIFIED ACUTE OR CHRONIC (9) Bronchospasm Code(s): J98.01 - ACUTE BRONCHOSPASM (10) CKD (chronic kidney disease) stage 2, GFR 60-89 ml/min Code(s): N18.2 - CHRONIC KIDNEY DISEASE, STAGE 2 (MILD) (11) COVID-19 Code(s): U07.1 - COVID POSITIVE (12) Constipation Code(s): K59.00 - CONSTIPATION, UNSPECIFIED (13) Coronary arteriosclerosis in patient with history of previous myocardial infarction Code(s): I25.10 - ATHSCL HEART DISEASE OF [place] CORONARY ARTERY W/O ANG PCTRS; I25.2 - OLD MYOCARDIAL INFARCTION (14) Diabetes mellitus Code(s): E11.9 - TYPE 2 DIABETES MELLITUS WITHOUT COMPLICATIONS Qualifiers: (15) Fall Code(s): W19.XXXA - UNSPECIFIED FALL, INITIAL ENCOUNTER Qualifiers: Encounter type: initial encounter Qualified Code(s): W19.XXXA - Unspecified fall, initial encounter (16) HIV disease Code(s): B20 - HUMAN IMMUNODEFICIENCY VIRUS [HIV] DISEASE (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 Code(s): B20 - HUMAN IMMUNODEFICIENCY VIRUS [HIV] DISEASE; G90.9 - DISORDER OF THE AUTONOMIC NERVOUS SYSTEM, UNSPECIFIED (18) Hyperlipemia Code(s): E78.5 - HYPERLIPIDEMIA, UNSPECIFIED (19) Hypoglycemia Code(s): E16.2 - HYPOGLYCEMIA, UNSPECIFIED (20) Hypoxemia Code(s): R09.02 - HYPOXEMIA (21) Peripheral neuropathy due to metabolic disorder Code(s): E88.9 - METABOLIC DISORDER, UNSPECIFIED; G99.0 - AUTONOMIC NEUROPATHY IN DISEASES CLASSIFIED ELSEWHERE (22) Weakness generalized Code(s): R53.1 - WEAKNESS (23) Aortic valve regurgitation Code(s): I35.1 - NONRHEUMATIC AORTIC (VALVE) INSUFFICIENCY (24) CAD (coronary artery disease) Code(s): I25.10 - ATHSCL HEART DISEASE OF [place] CORONARY ARTERY W/O ANG PCTRS (25) Carpal tunnel syndrome on both sides Code(s): G56.03 - CARPAL TUNNEL SYNDROME, BILATERAL UPPER LIMBS (26) Chronic renal insufficiency, stage IV (severe) Code(s): N18.4 - CHRONIC KIDNEY DISEASE, STAGE 4 (SEVERE) (27) Diabetes mellitus treated with oral medication Code(s): E11.9 - TYPE 2 DIABETES MELLITUS WITHOUT COMPLICATIONS; Z79.84 - VALET PARKING ATTENDANT (CURRENT) USE OF ORAL HYPOGLYCEMIC DRUGS (28) HIV (human immunodeficiency virus infection) Code(s): B20 - HUMAN IMMUNODEFICIENCY VIRUS [HIV] DISEASE (29) Polyneuropathy with HIV infection Code(s): B20 - HUMAN IMMUNODEFICIENCY VIRUS [HIV] DISEASE; G63 - POLYNEUROPATHY IN DISEASES CLASSIFIED ELSEWHERE (30) Vitamin D deficiency Code(s): E55.9 - VITAMIN D DEFICIENCY, UNSPECIFIED (31) Contusion of lower back Code(s): S30.0XXA - CONTUSION OF LOWER BACK AND PELVIS, INITIAL ENCOUNTER (32) Low back pain Code(s): M54.5 - LOW BACK PAIN Assessment/Plan Assessment/plan: acute syncope and collapse, acute fatigue, acute generalized muscle weakness, acute contusion of low back, acute low back pain, CAD, s/p stents x4, DM, HLD, HIV, CKD; DVT/GI prophylaxis, IV fluids for dehydration, sliding regular insulin coverage for DM, HAART for HIV, metoprolol for CAD, crestor and fenofibric acid for HLD, out of bed in chair as tolerated, tylenol prn for pain.
[2020-02-01] MEDS ORDERED: DOCUSATE SODIUM 100 MG CAPSULE (FP) PO ONE (18:13)
[2020-02-01] MEDS: DOCUSATE SODIUM 100 MG CAPSULE (FP) PO SCH ×3 (18:19→22:32)
[2020-02-01] MEDS ORDERED: ENOXAPARIN NA (PORCINE) 30 MG/0.3 ML DISP.SYRIN SQ SCH (19:00)
[2020-02-01] MEDS ORDERED: LACTATED RINGERS SOLUTION 1,000 ML/1,000 ML INFUS.BAG IV SCH (19:00)
[2020-02-01] MEDS: INSULIN SLIDING SCALE (NOVOLOG) 1 VIAL SQ SCH (19:53)
[2020-02-01] MEDS ORDERED: PANTOPRAZOLE 40 MG TABLET ONE (19:58)
[2020-02-01] MEDS: PANTOPRAZOLE 40 MG TABLET PO SCH (20:05)
[2020-02-01] MEDS ORDERED: metoPROLOL SUCCINATE 25 MG TAB.SR.24H (FP) PO SCH (22:00)
[2020-02-01] MEDS ORDERED: MELATONIN 5 MG TABLETS PO PRN (22:00)
[2020-02-01] MEDS ORDERED: METOPROLOL TARTRATE 25 MG TABLET (FP) ONE (22:47)
[2020-02-01] MEDS: ROSUVASTATIN CA 10 MG TABLET (FP) PO SCH (23:08)
[2020-02-01] MEDS: LIDOCAINE PATCH REMOVAL MC SCH (23:08)
[2020-02-01] MEDS: FLUTICASONE PROP 0.05% 16 GM NASAL SPRAY NS SCH (23:08)
[2020-02-01] MEDS: MELATONIN 1 MG TABLET PO SCH (23:09)
[2020-02-01] MEDS: METOPROLOL TARTRATE 25 MG TABLET (FP) PO SCH (23:09)
[2020-02-02] MEDS: ACETAMINOPHEN 325 MG TABLET (FP) PO PRN ×2 (00:26→15:59)
[2020-02-02] MEDS: INSULIN SLIDING SCALE (NOVOLOG) 1 VIAL SQ SCH ×3 (06:23→17:18)
[2020-02-02] MEDS ORDERED: LACTATED RINGERS SOLUTION 1,000 ML/1,000 ML INFUS.BAG IV SCH (06:52)
[2020-02-02] MEDS ORDERED: glipiZIDE 10 MG TABLET (FP) PO SCH (07:00)
[2020-02-02] MEDS ORDERED: PIOGLITAZONE HCL 30 MG TABLET PO SCH (07:00)
[2020-02-02 07:02] LABS: BASO % 0.4 % (0-2.0); EOS % 6.9 % (0-4.5); HEMATOCRIT 37.1 % (35.4-49); HEMOGLOBIN 12.5 GM/dL (11.7-16.9); LYMPH % 38.2 % (8-40); MCH 32.8 pg (25.7-33.7); MCHC 33.8 g/dl (32.0-35.9); MEAN PLT VOLUME 7.8 fl (7.5-11.1); NEUT % 44.5 % (42.8-82.8); PLATELET COUNT 166 K/MM3 (134-434); RBC 3.83 M/mm3 (4.00-5.60); RDW 12.7 % (11.9-15.9); WHITE BLOOD COUNT 6.6 K/mm3 (4.0-10.0)
[2020-02-02 07:30] LABS: ALBUMIN 3.2 g/dl (3.4-5.0); ALK PHOS 58 U/L (45-117); ANION GAP 7 MMOL/L (8-16); BILIRUBIN,TOTAL 0.5 mg/dL (0.2-1); BLOOD UREA NITROGEN 19.5 mg/dL (7-18); CHLORIDE 106 mmol/L (98-107); CO2 29 mmol/L (21-32); CREATININE 1.8 mg/dL (0.55-1.3); GLUCOSE,RANDOM 153 mg/dL (74-106); IRON SERUM 52 ug/dL (50-175); POTASSIUM 4.1 mmol/L (3.5-5.1); SGOT/AST 21 U/L (15-37); SGPT/ALT 25 U/L (13-61); SODIUM 142 mmol/L (136-145); TOT PROT 6.4 g/dl (6.4-8.2); TOTAL IRON BINDING CAPACITY 274 ug/dL (250-450)
--- NOTE | 2020-02-02 08:28 | PN ---
Progress Note, Physician Chief Complaint: Patient seen and examined at the bedside, no acute events from last night, afebrile, constipation, low blood pressure. History of Present Illness: This 84 yr old w/m with PMH of HIV, CAD with stents x4, HLD, HTN, CKD admitted via ER with an acute syncope and collapse, and easy fatigability. - Current Medication List Current Medications: Active Medications Acetaminophen (Tylenol -) 650 mg PO Q6H PRN PRN Reason: MODERATE PAIN 4-6 Last Admin: 02/02/20 00:26 Dose: 650 mg Documented by: Aspirin (Ecotrin -) 81 mg PO DAILY [facility] Cholecalciferol (Vitamin D3 -) 4,000 unit PO DAILY [facility] Clopidogrel Bisulfate (Plavix -) 75 mg PO DAILY [facility] Docusate Sodium (Colace -) 300 mg PO HS [facility] Last Admin: 02/01/20 22:32 Dose: Not Given Documented by: Fenofibric Acid (Trilipix -) 135 mg PO DAILY [facility] Ferrous Sulfate (Feosol -) 325 mg PO DAILY@0800 [facility] Fluticasone Propionate (Flonase -) 1 spray NS BID [facility] Last Admin: 02/01/20 23:08 Dose: Not Given Documented by: Lactated Ringer's (Lactated Ringers Solution) 1,000 ml in 1,000 mls @ 50 mls/hr IV ASDIR [facility] Insulin Aspart (Novolog Vial Sliding Scale -) 1 vial SQ TIDAC [facility]; Protocol Last Admin: 02/02/20 06:23 Dose: 2 unit Documented by: Lamivudine (Epivir Oral Solution -) 50 mg PO DAILY [facility] Melatonin (Melatonin) 3 mg PO [facility] Last Admin: 02/01/20 23:09 Dose: 3 mg Documented by: Melatonin (Melatonin) 5 mg PO HS PRN PRN Reason: INSOMNIA Metoprolol Tartrate (Lopressor -) 25 mg PO BID [facility] Last Admin: 02/01/20 23:09 Dose: 25 mg Documented by: Miscellaneous (Lidoderm Patch Removal) 1 each MC DAILY@2200 [facility] Last Admin: 02/01/20 23:08 Dose: 1 each Documented by: Pantoprazole Sodium (Protonix -) 40 mg PO DAILY [facility] Last Admin: 02/01/20 20:05 Dose: 40 mg Documented by: Rosuvastatin Calcium (Crestor -) 10 mg PO [facility] Last Admin: 02/01/20 23:08 Dose: 10 mg Documented by: Tamsulosin HCl (Flomax -) 0.4 mg PO DAILY@0830 [facility] - Objective Vital Signs: Vital Signs Temperature 97.7 F 02/02/20 06:00 Pulse Rate 61 02/02/20 06:00 Respiratory Rate 18 02/02/20 06:00 Blood Pressure 119/62 02/02/20 06:00 O2 Sat by Pulse Oximetry (%) 99 02/02/20 06:00 Constitutional: Yes: Well Nourished, No Distress, Calm Eyes: Yes: Conjunctiva Clear, EOM Intact HENT: Yes: Atraumatic, Normocephalic Neck: Yes: Supple, Trachea Midline Cardiovascular: Yes: Regular Rate and Rhythm Respiratory: Yes: Regular, CTA Bilaterally Gastrointestinal: Yes: Normal Bowel Sounds, Soft ...Rectal Exam: Yes: Deferred Genitourinary: Yes: WNL Breast(s): Yes: WNL Musculoskeletal: Yes: WNL Extremities: Yes: WNL Edema: No Peripheral Pulses WNL: Yes Integumentary: Yes: WNL Neurological: Yes: WNL ...Motor Strength: WNL Psychiatric: Yes: WNL Labs: CBC, BMP 02/02/20 06:15 02/02/20 06:00 INR, PTT INR 0.98 (0.83-1.09) 02/01/20 12:09 - ....Imaging Other: Report Reviewed (lab data reviewed) Problem List - Problems (1) Syncope and collapse Code(s): R55 - SYNCOPE AND COLLAPSE (2) Generalized muscle weakness Code(s): M62.81 - MUSCLE WEAKNESS (GENERALIZED) (3) Fatigue Code(s): R53.83 - OTHER FATIGUE (4) Dehydration Code(s): E86.0 - DEHYDRATION (5) Uswnf-el-xefdcur kidney injury Code(s): N17.9 - ACUTE KIDNEY FAILURE, UNSPECIFIED; N18.9 - CHRONIC KIDNEY DISEASE, UNSPECIFIED Qualifiers: Acute renal failure type: unspecified Chronic kidney disease stage: stage 3 (moderate) Qualified Code(s): N17.9 - Acute kidney failure, unspecified; N18.3 - Chronic kidney disease, stage 3 (moderate) (6) Syncope Code(s): R55 - SYNCOPE AND COLLAPSE Qualifiers: Encounter type: initial encounter Qualified Code(s): T67.1XXA - Heat syncope, initial encounter (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 (8) Bronchitis Code(s): J40 - BRONCHITIS, NOT SPECIFIED ACUTE OR CHRONIC (9) Bronchospasm Code(s): J98.01 - ACUTE BRONCHOSPASM (10) CKD (chronic kidney disease) stage 2, GFR 60-89 ml/min Code(s): N18.2 - CHRONIC KIDNEY DISEASE, STAGE 2 (MILD) (11) COVID-19 Code(s): U07.1 - COVID POSITIVE (12) Constipation Code(s): K59.00 - CONSTIPATION, UNSPECIFIED (13) Coronary arteriosclerosis in patient with history of previous myocardial infarction Code(s): I25.10 - ATHSCL HEART DISEASE OF [place] CORONARY ARTERY W/O ANG PCTRS; I25.2 - OLD MYOCARDIAL INFARCTION (14) Diabetes mellitus Code(s): E11.9 - TYPE 2 DIABETES MELLITUS WITHOUT COMPLICATIONS Qualifiers: (15) Fall Code(s): W19.XXXA - UNSPECIFIED FALL, INITIAL ENCOUNTER Qualifiers: Encounter type: initial encounter Qualified Code(s): W19.XXXA - Unspecified fall, initial encounter (16) HIV disease Code(s): B20 - HUMAN IMMUNODEFICIENCY VIRUS [HIV] DISEASE (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 Code(s): B20 - HUMAN IMMUNODEFICIENCY VIRUS [HIV] DISEASE; G90.9 - DISORDER OF THE AUTONOMIC NERVOUS SYSTEM, UNSPECIFIED (18) Hyperlipemia Code(s): E78.5 - HYPERLIPIDEMIA, UNSPECIFIED (19) Hypoglycemia Code(s): E16.2 - HYPOGLYCEMIA, UNSPECIFIED (20) Hypoxemia Code(s): R09.02 - HYPOXEMIA (21) Peripheral neuropathy due to metabolic disorder Code(s): E88.9 - METABOLIC DISORDER, UNSPECIFIED; G99.0 - AUTONOMIC NEUROPATHY IN DISEASES CLASSIFIED ELSEWHERE (22) Weakness generalized Code(s): R53.1 - WEAKNESS (23) Aortic valve regurgitation Code(s): I35.1 - NONRHEUMATIC AORTIC (VALVE) INSUFFICIENCY (24) CAD (coronary artery disease) Code(s): I25.10 - ATHSCL HEART DISEASE OF [place] CORONARY ARTERY W/O ANG PCTRS (25) Carpal tunnel syndrome on both sides Code(s): G56.03 - CARPAL TUNNEL SYNDROME, BILATERAL UPPER LIMBS (26) Chronic renal insufficiency, stage IV (severe) Code(s): N18.4 - CHRONIC KIDNEY DISEASE, STAGE 4 (SEVERE) (27) Diabetes mellitus treated with oral medication Code(s): E11.9 - TYPE 2 DIABETES MELLITUS WITHOUT COMPLICATIONS; Z79.84 - AIR VALUE TESTER (CURRENT) USE OF ORAL HYPOGLYCEMIC DRUGS (28) HIV (human immunodeficiency virus infection) Code(s): B20 - HUMAN IMMUNODEFICIENCY VIRUS [HIV] DISEASE (29) Polyneuropathy with HIV infection Code(s): B20 - HUMAN IMMUNODEFICIENCY VIRUS [HIV] DISEASE; G63 - POLYNEUROPATHY IN DISEASES CLASSIFIED ELSEWHERE (30) Vitamin D deficiency Code(s): E55.9 - VITAMIN D DEFICIENCY, UNSPECIFIED (31) Contusion of lower back Code(s): S30.0XXA - CONTUSION OF LOWER BACK AND PELVIS, INITIAL ENCOUNTER (32) Low back pain Code(s): M54.5 - LOW BACK PAIN Assessment/Plan Assessment/plan: acute syncope and collapse, easy fatigability, acute constipation, acute hypotension, CAD with stent x4, DM, HLD, HIV, CKD; hold metoprolol, d/c tamsulosin, d/c IV fluids since oral intake is adequate, DVT/GI prophylaxis, sliding scale regular insulin coverage, a/c with Clopidogrel, fenofibric acid and crestor for HLD, HAART for HIV, docusate and Miralax for constipation, out of bed in chair as tolerated, close observation for next 24 hours regarding hypotension.
[2020-02-02] MEDS ORDERED: TAMSULOSIN HCL 0.4 MG CAP PO SCH (08:30)
[2020-02-02] MEDS ORDERED: PT OWN MED DRAWER 7, Y5N ONE (10:25)
[2020-02-02] MEDS: FERROUS SO4 325 MG TABLET (FP) PO SCH (10:30)
[2020-02-02] MEDS: ASPIRIN COATED 81 MG TABLET.EC PO SCH (10:30)
[2020-02-02] MEDS: FLUTICASONE PROP 0.05% 16 GM NASAL SPRAY NS SCH ×2 (10:31→21:21)
[2020-02-02] MEDS: CLOPIDOGREL BISULFATE 75 MG TABLET (FP) PO SCH (10:32)
[2020-02-02] MEDS: METOPROLOL TARTRATE 25 MG TABLET (FP) PO SCH ×2 (10:32→21:19)
[2020-02-02] MEDS: PANTOPRAZOLE 40 MG TABLET PO SCH (10:32)
[2020-02-02] MEDS: POLYETHYLENE GLYCOL 3350 119 GM BTL PO SCH (10:33)
[2020-02-02] MEDS: CHOLECALCIFEROL (VIT D3) 1,000 UNIT (25 MCG) TABLET PO SCH (10:33)
[2020-02-02] MEDS: DARUNAVIR 800 MG/COBICISTAT 150MG TABLET PO SCH (16:02)
[2020-02-02] MEDS: lamiVUDine 10 MG/1 ML BULK BOTTLE PO SCH (16:02)
[2020-02-02] MEDS: FENOFIBRIC ACID 135 MG CAP PO SCH (16:03)
[2020-02-02] MEDS: DOLUTEGRAVIR SODIUM 50 MG TABLET (NON-FORMULARY) PO SCH (16:03)
[2020-02-02] MEDS: ROSUVASTATIN CA 10 MG TABLET (FP) PO SCH (21:18)
[2020-02-02] MEDS: MELATONIN 1 MG TABLET PO SCH (21:19)
[2020-02-02] MEDS: DOCUSATE SODIUM 100 MG CAPSULE (FP) PO SCH (21:19)
[2020-02-02] MEDS: LIDOCAINE PATCH REMOVAL MC SCH (21:22)
[2020-02-03] MEDS: INSULIN SLIDING SCALE (NOVOLOG) 1 VIAL SQ SCH (06:38)
--- NOTE | 2020-02-03 07:40 | DS ---
Physical Examination Vital Signs: Vital Signs Temperature 97.8 F 02/03/20 06:00 Pulse Rate 60 02/03/20 06:00 Respiratory Rate 18 02/03/20 06:00 Blood Pressure 120/58 L 02/03/20 06:00 O2 Sat by Pulse Oximetry (%) 98 02/02/20 21:00 Constitutional: Yes: Well Nourished, No Distress, Calm Eyes: Yes: Conjunctiva Clear, EOM Intact HENT: Yes: Atraumatic, Normocephalic Neck: Yes: Supple, Trachea Midline Cardiovascular: Yes: Regular Rate and Rhythm Respiratory: Yes: Regular, CTA Bilaterally Gastrointestinal: Yes: Normal Bowel Sounds, Soft ...Rectal Exam: Yes: Deferred Renal/: Yes: WNL Breast(s): Yes: WNL Musculoskeletal: Yes: WNL Extremities: Yes: WNL Edema: No Peripheral Pulses WNL: Yes Integumentary: Yes: WNL Neurological: Yes: WNL ...Motor Strength: WNL Psychiatric: Yes: WNL Labs: CBC, BMP 02/02/20 06:15 02/02/20 06:00 Discharge Summary Problems reviewed: Yes Reason For Visit: ACUTE KIDNEY INJURY FRACTURE OF TRANSVERSE PROCESS Current Active Problems [id number] kidney injury (Acute) Contusion of lower back (Acute) Dehydration (Acute) Fatigue (Acute) Generalized muscle weakness (Acute) Low back pain (Acute) Syncope (Acute) Syncope and collapse (Acute) Condition: Stable - Instructions Diet, Activity, Other Instructions: Continue home meds. Monitor blood pressure. Hold metoprolol if SBP is 100 or less. Adequate hydration. Activity as tolerated. Follow up with private MD in one week. Total time spent over 30 minutes. Referrals: Fred Marks MD [Primary Care Provider] - Disposition: HOME - Home Medications Comprehensive Discharge Medication List: Ambulatory Orders Alpha Lipoic Acid 200 mg PO TID 12/17/12 Ascorbate Calcium/Bioflav [Cande-C 500 mg Tablet] 1 each PO TID 12/17/12 Aspirin [ASA -] 81 mg PO DAILY 12/17/12 Fenofibrate [Lipofen] 160 mg PO DAILY 12/17/12 Ferrous Fumarate 65 mg PO DAILY 12/17/12 Sitagliptin Phosphate [Januvia] 25 mg PO DAILY 08/25/16 Cholecalciferol (Vitamin D3) [Vitamin D3] 2,000 unit PO BID 11/27/16 Multivitamin with Minerals [Icaps Plus] 1 each PO DAILY 11/27/16 Vitamin B Complex 1 tab PO DAILY 11/27/16 Vitamin E 400 unit PO DAILY 11/27/16 Rosuvastatin [Crestor -] 10 mg PO DAILY 06/07/17 Carboxymethylcellulos/Glycerin [Lubricant 0.5-0.9% Eye Drops] 15 ml OP PRN 7 Da ys #1 drops 03/22/18 Melatonin 3 mg PO HS 10/01/18 Pioglitazone HCl [Actos] 30 mg PO DAILY 10/01/18 Tamsulosin HCl [Flomax] 0.4 mg PO DAILY 10/01/18 Clopidogrel Bisulfate [Clopidogrel] 75 mg PO DAILY 12/13/19 Darunavir/Cobicistat [Prezcobix 800 mg-150 mg Tablet] 1 tab PO DAILY 12/13/19 Fluticasone Prop 0.05% Nasal [Flonase -] 1 spray NS BID 12/13/19 Icosapent Ethyl [Vascepa] 2 cap PO BID 12/13/19 Dolutegravir Sodium [Tivicay] 50 mg PO DAILY 12/14/19 Lamivudine 50 mg PO DAILY 12/14/19 Glipizide 10 mg PO BID 12/15/19 Metoprolol Tartrate 25 mg PO BID 12/15/19 Darunavir/Cobicistat [Prezcobix 800 mg-150 mg Tablet] 1 each PO DAILY@0900 tablet 12/17/19 Dolutegravir Sodium [Tivicay] 50 mg PO DAILY tablet 12/17/19 Melatonin 5 mg PO HS PRN tab 12/17/19 Acetaminophen [Tylenol .Regular Strength -] 650 mg PO Q6H PRN tablet 02/03/20 Aspirin Coated [Ecotrin -] 81 mg PO DAILY tablet.ec 02/03/20 Clopidogrel Bisulfate [Plavix -] 75 mg PO DAILY tablet 02/03/20 Darunavir/Cobicistat [Prezcobix 800 mg-150 mg Tablet] 1 each PO DAILY tablet 02/03/20 Docusate Sodium [Colace -] 300 mg PO HS capsule 02/03/20 Dolutegravir Sodium [Tivicay] 50 mg PO DAILY tablet 02/03/20 Fluticasone Prop 0.05% Nasal [Flonase -] 1 spray NS BID spray 02/03/20 Glipizide [Glucotrol -] 10 mg PO BID@0700,1630 tablet 02/03/20 Lamivudine Oral Soln [Epivir Oral Solution -] 50 mg PO DAILY ml 02/03/20 Lidocaine Patch Removal [Lidoderm Patch Removal] 1 each MC DAILY@2200 each 02/03/20 Melatonin 5 mg PO HS PRN tab 02/03/20 Metoprolol Succinate [Toprol XL -] 25 mg PO BID tab.sr.24h 02/03/20 Metoprolol Tartrate [Lopressor -] 25 mg PO BID tablet 02/03/20 Pioglitazone HCl [Actos] 30 mg PO DAILY@0700 tablet 02/03/20 Rosuvastatin [Crestor -] 10 mg PO HS tablet 02/03/20 Sitagliptin Phosphate [Januvia -] 25 mg PO DAILY@0700 tab 02/03/20 Tamsulosin HCl [Flomax -] 0.4 mg PO DAILY@0830 cap.er.24h 02/03/20
[2020-02-03] MEDS ORDERED: PT OWN MED DRAWER 7, Y5N ONE ×2 (08:45→09:08)
[2020-02-03] MEDS: FERROUS SO4 325 MG TABLET (FP) PO SCH (09:03)
[2020-02-03] MEDS: CHOLECALCIFEROL (VIT D3) 1,000 UNIT (25 MCG) TABLET PO SCH (09:12)
[2020-02-03] MEDS: METOPROLOL TARTRATE 25 MG TABLET (FP) PO SCH (09:12)
[2020-02-03] MEDS: CLOPIDOGREL BISULFATE 75 MG TABLET (FP) PO SCH (09:12)
[2020-02-03] MEDS: PANTOPRAZOLE 40 MG TABLET PO SCH (09:12)
[2020-02-03] MEDS: ASPIRIN COATED 81 MG TABLET.EC PO SCH (09:12)
[2020-02-03] MEDS: FLUTICASONE PROP 0.05% 16 GM NASAL SPRAY NS SCH (09:14)
[2020-02-03] MEDS: POLYETHYLENE GLYCOL 3350 119 GM BTL PO SCH (09:15)
[2020-02-03] MEDS: DARUNAVIR 800 MG/COBICISTAT 150MG TABLET PO SCH (09:21)
[2020-02-03] MEDS: FENOFIBRIC ACID 135 MG CAP PO SCH (09:21)
[2020-02-03] MEDS: lamiVUDine 10 MG/1 ML BULK BOTTLE PO SCH (09:21)
[2020-02-03] MEDS: DOLUTEGRAVIR SODIUM 50 MG TABLET (NON-FORMULARY) PO SCH (09:21)
[2020-02-03 09:34] VITALS: BP 112/53; PULSE 64; TEMP 97.5
== END 2020-02-03 12:11 | disposition home or self-care (01) ==
LOC: JER 11:27 → JERBED 17:41 → INTOOBSV 17:54 → UNDOADMOB 17:54 → JERBED 23:50 → J4S 23:50
PROVIDERS: ADMIT Internal Medicine; ATTEND Internal Medicine
PROC: 3E023GC Introduction of Other Therapeutic Substance into Muscle, Percutaneous Approach (ICD-10-PCS; principal; 2020-02-01)
PROC: 3E013VG Introduction of Insulin into Subcutaneous Tissue, Percutaneous Approach (ICD-10-PCS; 2020-02-01)
PROC: 3E033NZ Introduction of Analgesics, Hypnotics, Sedatives into Peripheral Vein, Percutaneous Approach (ICD-10-PCS; 2020-02-01)
PROC: 3E0337Z Introduction of Electrolytic and Water Balance Substance into Peripheral Vein, Percutaneous Approach (ICD-10-PCS; 2020-02-01)
DX: I13.10 Hypertensive heart and chronic kidney disease without heart failure, with stage 1 through stage 4 chronic kidney disease, or unspecified chronic kidney disease (principal); N18.4 Chronic kidney disease, stage 4 (severe); K59.00 Constipation, unspecified; E11.9 Type 2 diabetes mellitus without complications; M62.81 Muscle weakness (generalized); I25.10 Atherosclerotic heart disease of native coronary artery without angina pectoris; B20 Human immunodeficiency virus [HIV] disease; G90.9 Disorder of the autonomic nervous system, unspecified; E78.5 Hyperlipidemia, unspecified; E16.2 Hypoglycemia, unspecified; R09.02 Hypoxemia; E88.9 Metabolic disorder, unspecified; I35.1 Nonrheumatic aortic (valve) insufficiency; G56.03 Carpal tunnel syndrome, bilateral upper limbs; M54.5 Low back pain; E55.9 Vitamin D deficiency, unspecified; E11.22 Type 2 diabetes mellitus with diabetic chronic kidney disease; N18.9 Chronic kidney disease, unspecified; Z99.89 Dependence on other enabling machines and devices; E86.0 Dehydration; T67.1XXA Heat syncope, initial encounter; G51.0 Bell's palsy; J40 Bronchitis, not specified as acute or chronic; J98.01 Acute bronchospasm; U07.1 COVID-19; Z95.5 Presence of coronary angioplasty implant and graft; W18.39XA Other fall on same level, initial encounter; Y93.89 Activity, other specified; Y92.009 Unspecified place in unspecified non-institutional (private) residence as the place of occurrence of the external cause; S30.0XXA Contusion of lower back and pelvis, initial encounter
CPT/HCPCS: 36415; 70450-TC; 71250-TC; 72125-TC; 72128-TC; 72131-TC; 74176-TC; 80053; 81003; 82550; 82728; 82962; 83540; 83550; 83735; 84484; 85025; 85610; 87086; 93005; 93010; 96361; 96372; 96374; 99285-25; G0378; J0131; U0003

== ENCOUNTER 2020-04-07 13:33 | Emergency (ER) | payer BC, OTHER ==
[2020-04-07 13:51] VITALS: BMI 22.1
[2020-04-07] MEDS ORDERED: ACETAMINOPHEN 500 MG TABLET (FP) PO ONE (14:29)
--- NOTE | 2020-04-07 14:31 | PDOC ---
History of Present Illness - General Chief Complaint: Back Pain Stated Complaint: HURT RIGHT FOOT Time Seen by Provider: 04/07/20 14:15 History Source: Patient - History of Present Illness Occurred: reports: yesterday Severity: Yes: severe Lower Extremity Pain Location: right: 1st toe Past History - Medical History Allergies/Adverse Reactions: Allergies Allergy/AdvReac Type Severity Reaction Status Date / Time No Known Allergies Allergy Verified 04/07/20 13:43 Home Medications: Ambulatory Orders Alpha Lipoic Acid 200 mg PO TID 12/17/12 Ascorbate Calcium/Bioflav [Cande-C 500 mg Tablet] 1 each PO TID 12/17/12 Aspirin [ASA -] 81 mg PO DAILY 12/17/12 Fenofibrate [Lipofen] 160 mg PO DAILY 12/17/12 Ferrous Fumarate 65 mg PO DAILY 12/17/12 Sitagliptin Phosphate [Januvia] 25 mg PO DAILY 08/25/16 Cholecalciferol (Vitamin D3) [Vitamin D3] 2,000 unit PO BID 11/27/16 Multivitamin with Minerals [Icaps Plus] 1 each PO DAILY 11/27/16 Vitamin B Complex 1 tab PO DAILY 11/27/16 Vitamin E 400 unit PO DAILY 11/27/16 Rosuvastatin [Crestor -] 10 mg PO DAILY 06/07/17 Carboxymethylcellulos/Glycerin [Lubricant 0.5-0.9% Eye Drops] 15 ml OP PRN 7 Day s #1 drops 03/22/18 Melatonin 3 mg PO HS 10/01/18 Pioglitazone HCl [Actos] 30 mg PO DAILY 10/01/18 Tamsulosin HCl [Flomax] 0.4 mg PO DAILY 10/01/18 Clopidogrel Bisulfate [Clopidogrel] 75 mg PO DAILY 12/13/19 Darunavir/Cobicistat [Prezcobix 800 mg-150 mg Tablet] 1 tab PO DAILY 12/13/19 Fluticasone Prop 0.05% Nasal [Flonase -] 1 spray NS BID 12/13/19 Icosapent Ethyl [Vascepa] 2 cap PO BID 12/13/19 Dolutegravir Sodium [Tivicay] 50 mg PO DAILY 12/14/19 Lamivudine 50 mg PO DAILY 12/14/19 Glipizide 10 mg PO BID 12/15/19 Metoprolol Tartrate 25 mg PO BID 12/15/19 Darunavir/Cobicistat [Prezcobix 800 mg-150 mg Tablet] 1 each PO DAILY@0900 tablet 12/17/19 Dolutegravir Sodium [Tivicay] 50 mg PO DAILY tablet 12/17/19 Melatonin 5 mg PO HS PRN tab 12/17/19 Acetaminophen [Tylenol .Regular Strength -] 650 mg PO Q6H PRN tablet 02/03/20 Aspirin Coated [Ecotrin -] 81 mg PO DAILY tablet.ec 02/03/20 Clopidogrel Bisulfate [Plavix -] 75 mg PO DAILY tablet 02/03/20 Darunavir/Cobicistat [Prezcobix 800 mg-150 mg Tablet] 1 each PO DAILY tablet 02/03/20 Docusate Sodium [Colace -] 300 mg PO HS capsule 02/03/20 Dolutegravir Sodium [Tivicay] 50 mg PO DAILY tablet 02/03/20 Fluticasone Prop 0.05% Nasal [Flonase -] 1 spray NS BID spray 02/03/20 Glipizide [Glucotrol -] 10 mg PO BID@0700,1630 tablet 02/03/20 Lamivudine Oral Soln [Epivir Oral Solution -] 50 mg PO DAILY ml 02/03/20 Lidocaine Patch Removal [Lidoderm Patch Removal] 1 each MC DAILY@2200 each 02/03/20 Melatonin 5 mg PO HS PRN tab 02/03/20 Metoprolol Succinate [Toprol XL -] 25 mg PO BID tab.sr.24h 02/03/20 Metoprolol Tartrate [Lopressor -] 25 mg PO BID tablet 02/03/20 Pioglitazone HCl [Actos] 30 mg PO DAILY@0700 tablet 02/03/20 Rosuvastatin [Crestor -] 10 mg PO HS tablet 02/03/20 Sitagliptin Phosphate [Januvia -] 25 mg PO DAILY@0700 tab 02/03/20 Tamsulosin HCl [Flomax -] 0.4 mg PO DAILY@0830 cap.er.24h 02/03/20 Acetaminophen [Tylenol -] 1,000 mg PO Q6H #100 tablet 04/07/20 Anemia: No Asthma: No Cancer: No Cardiac Disorders: Yes (CAD, EF 66%) CVA: Yes (TIA) COPD: Yes CHF: No DVT: No Dementia: No Diabetes: Yes GI Disorders: Yes (Proctitis) Disorders: Yes (BPH) HTN: Yes Hypercholesterolemia: Yes Liver Disease: No Seizures: No Thyroid Disease: No Lung CA: (pulmonary nodules) - Surgical History Abdominal Surgery: Yes (ANAL FISSURE) Appendectomy: No Cardiac Surgery: Yes (CARDIAC STENT; carotid endarterectomy) Cholecystectomy: No Lung Surgery: No Neurologic Surgery: No Orthopedic Surgery: No - Immunization History Td Vaccination: (unsure) Immunization Up to Date: Yes - Psycho-Social/Smoking History Smoking Status: No Smoking History: Never smoked Years of Tobacco Use: 0 Have you smoked in the past 12 months: No Number of Cigarettes Smoked Daily: 0 Cigars Per Day: 0 - Substance Abuse Hx (Audit-C & DAST Scrn) How often the patient has a drink containing alcohol: Monthly or less Number of drinks the patient has on a typical day: 1 or 2 How often the patient has six or more drinks on one occasion: Never Score: In Men: 4 or > Positive; In Women: 3 or > Positive: 1 Screen Result (Pos requires Nsg. Audit-10AR): Negative In the last yr the pt used illegal drug/Rx for NonMed reason: No Score: Yes response is considered Positive: 0 Screen Result (Positive result requires Nsg. DAST-10): Negative Review of Systems - Review of Systems Constitutional: No: Chills, Fever Musculoskeletal: Yes: Joint Pain. No: Joint Swelling *Physical Exam - Vital Signs Last Vital Signs Temp Pulse Resp BP Pulse Ox 98.3 F 92 H 14 95/50 L 97 04/07/20 13:44 04/07/20 13:44 04/07/20 13:44 04/07/20 13:44 04/07/20 13:44 - Physical Exam General Appearance: Yes: Appropriately Dressed. No: Apparent Distress HEENT: positive: Normal Voice Neck: positive: Supple Respiratory/Chest: negative: Respiratory Distress Extremity: positive: Tender (diffusely to R great toe, no erythema or swelling, no increase pain w/ ROM) Integumentary: positive: Dry, Warm Neurologic: positive: Fully Oriented, Alert, Normal Mood/Affect ED Treatment Course - LABORATORY CBC & Chemistry Diagram: 04/07/20 14:56 04/07/20 14:56 - RADIOLOGY Radiology Studies Ordered: Category Date Time Status FOOT-RIGHT [RAD] Stat Radiology 04/07/20 14:29 Ordered Medical Decision Making - Medical Decision Making 04/07/20 14:31 84yM w PMHx HIV (on HAART), peripheral neuropathy, CAD (s/p stent x4), NIDDM, HT N, HLD, BPH, CKD (baseline 2.2) covid+ (09/26), chronic LBP w/ DJD on T/L/S CT 01/23, here w/ severe R great toe pain that started at some point yesterday. No redness, swelling, f/c. Denies trauma or other obvious inciting factors. No h/o same. No h/o gout. States since pain started he relies more on his walker versus his cane but is able to bear weight see exam Podagra No e/o infection, ?early gout (though denies h/o same), no trauma, ?MSK Exam only remarkable for significant pain with palpation to R great toe diffusely, no erythema or swelling -pain control -labs including inflammatory markers, uric acid -XR -dispo pending 04/07/20 16:18 Inflammatory markers elevated, uric acid within normal limits. X-ray unremarkable. Labs remarkable for blood glucose of 341, no gap. Creatinine ba seline around 2.2. Repeat blood pressure still 90s over 60s, not pt's baseline. Patient now reports may be feeling a little fatigued. Will place an IV with gentle hydration and small dose of insulin and reassess. Will also get EKG at this time. Of note, patient was admitted to [facility] in January of this year for fatigue with syncope and ended up having an acute fracture of his T12 vertebra. Patient resides alone with a home health attendant who comes 4 times a week. Follows up with Dr. Crenshaw of cardiology and has an outside PMD 04/07/20 18:10 On reassessment, patient reports feeling significantly better and requesting discharge. Was able to juan po here. Repeat fingerstick 235 and repeat blood pressure 125/77. Will dc with pain control and strict return precautions. Patient otherwise to follow-up with his PMD Discharge - Discharge Information Problems reviewed: Yes Clinical Impression/Diagnosis: Hyperglycemia Toe pain Qualifiers: Laterality: right Qualified Code(s): M79.674 - Pain in right toe(s) Condition: Improved Disposition: HOME - Additional Discharge Information Prescriptions: Acetaminophen [Tylenol -] 1,000 mg PO Q6H #100 tablet - Follow up/Referral Referrals: Fred Marks MD [Primary Care Provider] - - Patient Discharge Instructions Additional Instructions: The cause of your toe pain might be muscular, possibly arthritic in nature Take Tylenol as directed and follow-up with your PMD. Your sugar was elevated here but improved with fluids and a small dose of insulin. Please follow-up with your doctor for better management management of your diabetes - Post Discharge Activity
[2020-04-07] MEDS ORDERED: ACETAMINOPHEN 325 MG TABLET (FP) ONE (14:42)
[2020-04-07 15:09] LABS: BASO % 0.5 % (0-2.0); EOS % 4.9 % (0-4.5); HEMATOCRIT 39.8 % (35.4-49); HEMOGLOBIN 13.2 GM/dL (11.7-16.9); MCH 32.1 pg (25.7-33.7); MCHC 33.2 g/dl (32.0-35.9); MEAN CELL VOLUME 96.6 fl (80-96); MEAN PLT VOLUME 7.9 fl (7.5-11.1); NEUT % 55.6 % (42.8-82.8); PLATELET COUNT 223 K/MM3 (134-434); RBC 4.12 M/mm3 (4.00-5.60); WHITE BLOOD COUNT 6.6 K/mm3 (4.0-10.0)
[2020-04-07 15:24] LABS: ALBUMIN 3.7 g/dl (3.4-5.0); BILIRUBIN,TOTAL 0.8 mg/dL (0.2-1); BLOOD UREA NITROGEN 25.3 mg/dL (7-18); CREATININE 2.2 mg/dL (0.55-1.3); POTASSIUM 3.7 mmol/L (3.5-5.1); TOT PROT 7.4 g/dl (6.4-8.2); URIC ACID 4.7 mg/dL (2.6-7.2)
[2020-04-07] MEDS ORDERED: SODIUM CHLORIDE 500 ML IV STA (16:10)
[2020-04-07] MEDS ORDERED: INSULIN REGULAR HUMAN 100 UNITS/ML *VIAL SQ ONE (16:10)
[2020-04-07 16:15] LABS: ERYTHROCYTE SEDIMENTATION RATE 35 mm/hr (0-20)
[2020-04-07 16:19] VITALS: TEMP 98.7
[2020-04-07 18:38] VITALS: BP 107/55; PULSE 69
--- OUTSIDE RECORDS SUMMARY | 2020-04-07 19:08 | XMS ---
:[address] [facility] Care Team Providers Name Role Phone ED STAFF PHYSICIANBEVERLEY Unavailable Unavailable [facility] Unavailable Unavailable Digiorno, Jayden Unavailable Unavailable Digiorno, Jayden Unavailable Unavailable Digiorno, Jayden Unavailable Unavailable ED STAFF PHYSICIAN, STAFF Unavailable Unavailable Fred Marks MD Unavailable Unavailable Fred Marks MD Unavailable Unavailable Fred Marks MD Unavailable Unavailable Fred Marks MD Unavailable Unavailable Fred Marks MD Unavailable Unavailable Fred Marks MD Unavailable Unavailable Fred Marks MD Unavailable Unavailable Fred Marks MD Unavailable Unavailable Fred Marks MD Unavailable Unavailable Fred Marks MD Unavailable Unavailable Fred Makrs MD Unavailable Unavailable Fred Marks MD Unavailable Unavailable Fred Marks MD Unavailable Unavailable Fred Marks MD Unavailable Unavailable Fred Marks MD Unavailable Unavailable Fred Marks MD Unavailable Unavailable Fred Marks MD Unavailable Unavailable Fred Marks MD Unavailable Unavailable Fred Marks MD Unavailable Unavailable Fred Marks MD Unavailable Unavailable Fred Marks MD Unavailable Unavailable Fred Marks MD Unavailable Unavailable Fred Marks MD Unavailable Unavailable Re-disclosure Warning The records that you are about to access may contain information from federally- assisted alcohol or drug abuse programs. If such information is present, then the following federally mandated warning applies: This information has been disclosed to you from records protected by federal confidentiality rules (42 CFR part 2). The federal rules prohibit you from making any further disclosure of this information unless further disclosure is expressly permitted by the written consent of the person to whom it pertains or as otherwise permitted by 42 CFR part 2. A general authorization for the release of medical or other information is NOT sufficient for this purpose. The Federal rules restrict any use of the information to criminally investigate or prosecute any alcohol or drug abuse patient.The records that you are about to access may contain highly sensitive health information, the redisclosure of which is protected by Article 27-F of the [facility] Public Health law. If you continue you may haveaccess to information: Regarding HIV / AIDS; Provided by facilities licensed or operated by the [facility] Office of Mental Health; or Provided by the [facility] Office for People With Developmental Disabilities. If such information is present, then the following [facility] mandated warning applies: This information has been disclosed to you from confidential records which are protected by state law. State law prohibits you from making any further disclosure of this information without the specific written consent of the person to whom it pertains, or as otherwise permitted by law. Any unauthorized further disclosure in violation of state law may result in a fine or [place] health [facility] sentence or both. A general authorization for the release of medical or other information is NOT sufficient authorization for further disclosure. Allergies and Adverse Reactions Type Description Substance Reaction Status Data Source(s ) Allergy to No Known Allergies No known GREENW AY substance allergies ([facility] ([facility]) Medicine and Infectious Disease) Allergy to No Known Allergies No known GREENW AY substance allergies ([facility] ([facility]) Medicine and Infectious Disease) Allergy to No Known Allergies No known GREENW AY substance allergies ([facility] ([facility]) Medicine and Infectious Disease) Allergy to No Known Allergies No known GREENW AY substance allergies ([facility] ([facility]) Medicine and Infectious Disease) Allergy to No Known Allergies No known GREENW AY substance allergies ([facility] ([facility]) Medicine and Infectious Disease) Allergy to No Known Allergies No known GREENW AY substance allergies ([facility] ([facility]) Medicine and Infectious Disease) Allergy to No Known Allergies No known GREENW AY substance allergies ([facility] ([facility]) Medicine and Infectious Disease) Encounters Encounter Providers Location Date Indications Data Source(s ) Attender: Jayden 03/14/2020 [facility] ([facility] 12:00:00 AM EDT Medical, PC) Office Attender: Jayden Singh 03/14/2020 12:00:00 AM EDT [facility] [place] [place] Outpatient<td Attender: [facility] 01/28/2020 Hiv [place] ID="encounterTypeDescriptionID0">Follow-Up</td><td>Fred CASTELLANOS MEDICINE & 12:33:00 PM InfectionChronic ([facility] [place]</td><td>[facility] [place] & INFECTIOUS [place] INFECTIOUS EDT - [facility] DIS[facility]ASE</td><td>01/28/2020</td><td><content DISEASE FailureDiabetes and Infectious ID="encounterDiagnosisID0-0">Hiv Infection</content>, 01:40:00 PM Mellitus Disease) <content ID="encounterDiagnosisID0-1">Diabetes EDT Mellitus</content>, <content ID="encounterDiagnosisID0-2">Chronic Renal Failure</content></td> Hiv Infection Chronic Renal Failure Diabetes [place] Outpatient<td Attender: [facility] 12/27/2019 Hiv [place] ID="encounterTypeDescriptionID0">Follow-Up</td><td>Fred CASTELLANOS MEDICINE & 11:46:00 AM InfectionDiabetes ([facility]</td><td>[facility] [place]INE & INFECTIOUS [place] INFECTIOUS EDT - [facility] [facility]</td><td>12/27/2019</td><td><content DISEASE and Infectious ID="encounterDiagnosisID0-0">Diabetes 11:59:00 PM Disease) Mellitus</content>, <content EDT ID="encounterDiagnosisID0-1">Hiv Infection</content></td> Hiv Infection Diabetes [place] Outpatient<td Attender: [facility] 11/22/2019 Hiv [place] ID="encounterTypeDescriptionID0">Follow-Up</td><td>Fred CASTELLANOS MEDICINE & 02:25:00 PM InfectionDiabetes ([facility] [place]</td><td>[facility] [place] & INFECTIOUS [place] INFECTIOUS EDT - [facility] [facility]</td><td>11/22/2019</td><td><content DISEASE and Infectious ID="encounterDiagnosisID0-0">Diabetes 03:12:00 PM Disease) Mellitus</content>, <content EDT ID="encounterDiagnosisID0-1">Hiv Infection</content></td> Hiv Infection Diabetes [place] Emergency Attender: BEVERLEY ED STAFF H 09/27/2019 11:18:00 AM [facility] PHYSICIANAttender: STAFF ED EDT - 09/27/2019 [facility] STAFF PHYSICIANAdmitter: 10:10:00 PM EDT BEVERLEY ED STAFF PHYSICIAN Patient discharged. Lab results<td Attender: [facility] 09/14/2019 Hiv [place] ID="encounterTypeDescriptionID0">Lab [facility] MEDICINE & 03: 35:00 PM InfectionDiabetes ([facility] results</td><td>Fred Marks MD INFECTIOUS EDT - Mell[place] JASMIN Mcelroy MD</td><td>[facility] [place] & DISEASE 0 and Infectious INFECTIOUS 05:10:00 PM Disease) DISEASE</td><td>09/14/2019</td><td><content EDT ID="encounterDiagnosisID0-0">Diabetes Mellitus</content>, <content ID="encounterDiagnosisID0-1">Hiv Infection</content></td> Hiv Infection Diabetes Mell[place] Outpatient Attender: [id number] 08/24/2019 12:22:46 PM I ([facility]) Patient admitted. Outpatient<td Attender: [facility] 06/15/2019 Hiv [place] ID="encounterTypeDescriptionID0">Coming to [facility] MEDICINE & 01:42:00 PM InfectionDiabetes ([facility] have forms completed</td><td>Fred Marks MD INFECTIOUS EST - Mell[place] JASMIN Medicine </td><td>[facility] [place] & DISEASE 9 and Infectious INFECTIOUS 03:02:00 PM Disease) DISEASE</td><td>06/15/2019</td><td><content EST ID="encounterDiagnosisID0-0">Diabetes Mellitus</content>, <content ID="encounterDiagnosisID0-1">Hiv Infection</content></td> Hiv Infection Diabetes [place] Outpatient<td Attender: [facility] 02/22/2019 Hiv [place] ID="encounterTypeDescriptionID0">Walk-in [facility] MEDICINE & 12:05:00 PM InfectionDiabetes ([facility] patient</td><td>Fred Marks MD INFECTIOUS EDT - [place] [facility] </td><td>[facility] [place] & DISEASE 9 and Infectious INFECTIOUS 12:57:00 PM Disease) DISEASE</td><td>02/22/2019</td><td><content EDT ID="encounterDiagnosisID0-0">Diabetes Mellitus</content>, <content ID="encounterDiagnosisID0-1">Hiv Infection</content></td> Hiv Infection Diabetes [place] Outpatient<td Attender: [facility] 12/14/2018 Hiv [place] ID="encounterTypeDescriptionID0">Walk-in [facility] MEDICINE & 12:27:00 PM InfectionDiabetes ([facility] patient</td><td>Fred Marks MD INFECTIOUS EDT - [place] [facility] </td><td>[facility] [place] & DISEASE 9 and Infectious INFECTIOUS 01:05:00 PM Disease) DISEASE</td><td>12/14/2018</td><td><content EDT ID="encounterDiagnosisID0-0">Hiv Infection</content>, <content ID="encounterDiagnosisID0-1">Diabetes Mellitus</content></td> Hiv Infection Diabetes [place] Medications Medication Brand Start Product Dose Route Administrative Pharmacy [facility] Indications Reaction Description Data Name Date Form Instructions Instructions Source(s) Tamsulosin Tamsul active tamsulos in [place] hydrochlori osin 2020 hydrochlorid (Metropoli de 0.4 MG HCl 12:00: e 0.4 MG [place] Oral 0.4 MG 00 AM Oral Capsule Medi cine Capsule Oral EDT and Tamsulosin Capsul Infecti ous HCl 0.4 MG e Disease) Oral Capsule dolutegravi [facility]ica [facility] [place] r 50 MG y 50 2020 50 MG Oral (Metro adriano Oral Tablet MG 12:00: Tablet [place] [Tivicay] Oral 00 AM [Tivicay] Medi cine Tivicay 50 Tablet EDT and MG Oral Infectious Tablet Disease) Metoprolol Metopr active metoprol ol MERRY Tartrate 25 olol 2020 tartrate 25 ( Metropoli MG Oral Tartra 12:00: MG Oral [place] Tablet te 25 00 AM Tablet Medicine MG EDT and Oral Infectious Tablet Disease) Fenofibrate Fenofi active fenofib rate MERRY 160 MG Oral brate 2020 160 MG Oral (Metropoli Tablet 160 MG 12:00: Tablet [place] Oral 00 AM Medicine Tablet EDT and Infectious Disease) abacavir Abacav aborted abacavir 300 MERRY 300 MG Oral ir 2020 MG Oral (Metr opoli Tablet Sulfat 12:00: Tablet [place] Abacavir e 300 00 AM Medicine Sulfate 300 MG EDT and MG Oral Oral Infectious Tablet Tablet Disease) icosapent Vascep active icosapent MERRY ethyl 1000 a 1 GM 2020 ethyl 1000 ( Metropoli MG Oral Oral 12:00: MG Oral [place] Capsule Capsul 00 AM Capsule Medici ne [Vascepa] e EDT [Vascepa] and Vascepa 1 Infectious GM Oral Disease) Capsule pioglitazon Piogli aborted piogli tazone MERRY e 30 MG tazone 2020 30 MG Oral (Met ropoli Oral Tablet HCl 30 12:00: Tablet ta n [place] Pioglitazon MG 00 AM Medicin e e HCl 30 MG Oral EDT and Oral Tablet Tablet Infect ious Disease) sitagliptin Januvi active sitagli ptin MERRY 25 MG Oral a 25 2020 25 MG Oral (Me tropoli Tablet MG 12:00: Tablet [place] [Januvia] Oral 00 AM [Januvia] Medi cine Januvia 25 Tablet EDT and MG Oral Infectious Tablet Disease) Glipizide glipiZ aborted Glipizid e 10 MERRY 10 MG Oral JORDAN 10 2020 MG Oral (Met ropoli Tablet MG 12:00: Tablet [place] glipiZIDE Oral 00 AM Medicine 10 MG Oral Tablet EDT and Tablet Infectious Disease) Fluticasone Flutic active flutica sone MERRY Propionate asone 2020 propionate (M etropoli 50 MCG/ACT Propio 12:00: 0.05 [place] Nasal howard 00 AM MG/ACTUAT Medicine Suspension 50 EST Metered Dose a nd MCG/AC Nasal [place] Infect ious T Disease) Nasal Suspen paul abacavir Abacav active abacavir 3 00 MERRY 300 MG Oral ir 2020 MG Oral (Metr opoli Tablet Sulfat 12:00: Tablet [place] Abacavir e 300 00 AM Medicine Sulfate 300 MG EST and MG Oral Oral Infectious Tablet Tablet Disease) QC QC active QC MERRY Fluticasone Flutic 2020 Fluticasone (Metropoli Propionate asone 12:00: Propionate [place] 50 MCG/ACT Propio 00 AM Medici ne Nasal howard EST and Suspension 50 Infectiou s MCG/AC Disease) T Nasal Suspen paul cobicistat Prezco active cobicist at MERRY 150 MG / bix 2018 150 MG / (Metrop hector darunavir 800-15 12:00: darunavir t an [place] 800 MG Oral 0 MG 00 AM 800 MG Oral Medicine Tablet Oral EST Tablet and [Prezcobix] Tablet [Prezcobix] Infectious Prezcobix Disease) 800-150 MG Oral Tablet Zithromax Zithro 05/24/ aborted {6 GRE ENWAY Z-Pk 250 max 2018 (Azithromyci (M etropoli MG Oral Z-Pk 12:00: n 250 MG [place] Tablet 250 MG 00 AM Oral Tablet Med icine Oral EST [Zithromax]) and Tablet } Pack Infectious [Z-PK] Disease) Dextrometho Promet aborted Dextro methor MERRY rphan 3 hazine 2019 harrison (Metropoli MG/ML / -DM 12:00: Hydrobromide ta n [place] Promethazin 6.25-1 00 AM 3 MG/ML / Medicine e 5 EST Promethazine and Hydrochlori MG/5ML Hydrochlori d Infectious de 1.25 Oral e 1.25 MG/ML Dise ase) MG/ML Oral Syrup Oral Solution Solution Promethazin e-DM 6.25-15 MG/5ML Oral Syrup Lamivudine lamiVU 04/19/ active lamivudi ne MERRY 100 MG Oral Dine 2019 100 MG Oral ( Metropoli Tablet 100 MG 12:00: Tablet [place] lamiVUDine Oral 00 AM Medicine 100 MG Oral Tablet EDT and Tablet Infectious Disease) abacavir Abacav active abacavir 3 00 MERRY 300 MG Oral ir 2019 MG Oral (Metr opoli Tablet Sulfat 12:00: Tablet [place] Abacavir e 00 AM Medicine Sulfate 300MG EDT and 300MG Oral Oral Infectiou s Tablet Tablet Disease) Rosuvastati Rosuva active rosuvas tatin MERRY n calcium statin 2019 calcium 10 (M etropoli 10 MG Oral Calciu 12:00: MG Oral ta n [place] Tablet m 10MG 00 AM Tablet Medicine Rosuvastati Oral EDT and n Calcium Tablet Infectio us 10MG Oral Disease) Tablet icosapent VASCEP 01/22/ CAPSULE 30 complet ISAIAS CHOUDHURY [email or web address] (St ethyl 1000 A:1304 2019 ed [facility] MG Oral 985 12:00: Medical, Capsule 00 AM PC) [Vascepa] EDT VASCEPA:130 4985 icosapent VASCEP 01/22/ CAPSULE 30 complet ISAIAS CHOUDHURY [email or web address] (St ethyl 1000 A:1304 2019 ed [facility] MG Oral 985 12:00: Medical, Capsule 00 AM PC) [Vascepa] EDT VASCEPA:130 4985 icosapent VASCEP 01/22/ CAPSULE 30 complet ISAIAS [employer] (St ethyl 1000 A:1304 2019 ed [facility] MG Oral 985 12:00: Medical, Capsule 00 AM PC) [Vascepa] EDT VASCEPA:130 4985 Tamsulosin Tamsul active Tamsulos in MERRY hydrochlori osin 2019 hydrochlorid (Metropoli de 0.4 MG HCl 12:00: e 0.4 MG [place] Oral 0.4MG 00 AM Oral Capsule Medic ine Capsule Oral EDT and Tamsulosin Capsul Infecti ous HCl 0.4MG e Disease) Oral Capsule Fenofibrate Fenofi active Fenofib rate MERRY 160 MG Oral brate 2019 160 MG Oral (Metropoli Tablet 160MG 12:00: Tablet [place] Fenofibrate Oral 00 AM Medicin e 160MG Oral Tablet EDT and Tablet Infectious Disease) Glipizide glipiZ active Glipizide 10 MERRY 10 MG Oral JORDAN 2019 MG Oral (Metro adriano Tablet 10MG 12:00: Tablet [place] glipiZIDE Oral 00 AM Medicine 10MG Oral Tablet EDT and Tablet Infectious Disease) sitagliptin Januvi active sitagli ptin MERRY 25 MG Oral a 25MG 2019 25 MG Oral ( Metropoli Tablet Oral 12:00: Tablet [place] [Januvia] Tablet 00 AM [Januvia] Me dicine Januvia EDT and 25MG Oral Infectious Tablet Disease) icosapent Vascep active icosapent MERRY ethyl 1000 a 1GM 2019 ethyl 1000 (M etropoli MG Oral Oral 12:00: MG Oral [place] Capsule Capsul 00 AM Capsule Medici ne [Vascepa] e EDT [Vascepa] and Vascepa 1GM Infectio us Oral Disease) Capsule Albuterol Albute 09/17/ active albuterol MERRY 0.83 MG/ML rol 2019 0.83 MG/ML (Me tropoli Inhalant Sulfat 12:00: Inhalation t an [place] Solution e (2.5 00 AM Solution Medi cine Albuterol MG/3ML EDT and Sulfate )0.083 Infectious (2.5 % Disease) MG/3ML)0.08 Inhala 3% tion Inhalation Nebuli Nebulizatio zation n solution soluti on pioglitazon Piogli complet piogli tazone MERRY e 30 MG tazone 2019 ed 30 MG Oral (Met ropoli Oral Tablet HCl 12:00: Tablet [place] Pioglitazon 30MG 00 AM Medicin e e HCl 30MG Oral EDT and Oral Tablet Tablet Infect ious Disease) abacavir Abacav 08/04/ UNIT 2 active Abacavir G REENWAY 300 MG Oral ir 2019 Sulfate (Metr opoli Tablet Sulfat 12:00: [place] Abacavir e 00 AM Medicine Sulfate 300MG EST and 300MG Oral Oral Infectiou s Tablet Tablet Disease) CALCIUM: 07/24/ complet CALCIUM MED GEN (St 2019 ed [facility] 12:00: Medical, 00 AM PC) EST clopidogrel CLOPID complet CLOPID OGREL [facility] (St 75 MG Oral OGREL: 2019 ed [facility] Tablet [id number] 12:00: Medical, CLOPIDOGREL 00 AM PC) :[id number] EST abacavir ABACAV 07/24/ complet ABACAVIR [facility] (St 300 MG Oral IR:242 2018 ed [facility] Tablet 679 12:00: Medical, ABACAVIR:24 00 AM PC) 2679 EST Aspirin 81 ASPIRI 07/24/ complet ASPIRIN [facility] (St MG Delayed N:3084 2018 ed [facility] Release 16 12:00: Medical, Oral Tablet 00 AM PC) ASPIRIN:308 EST 416 sitagliptin JANUVI 07/24/ complet JANUVI A [facility] (St 25 MG Oral A:6650 2018 ed [facility] Tablet 40 12:00: Medical, [Januvia] 00 AM PC) JANUVIA:665 EST 040 IRON: 07/24/ complet IRON [facility]GEN (S t 2018 ed [facility] 12:00: Medical, 00 AM PC) EST Glipizide GLIPIZ 07/24/ TABLET 30 complet GLIPIZ JORDAN [facility] (St 10 MG Oral JORDAN:2018 ed [facility] Tablet 0488 12:00: Medical, GLIPIZIDE:3 00 AM PC) 05089 EST Fenofibrate FENOFI 07/24/ complet FENOFI BRATE [facility] (St 160 MG Oral BRATE: 2018 ed [facility] Tablet [id number] 12:00: Medical, FENOFIBRATE 00 AM PC) :852128 EST Lamivudine LAMIVU 07/24/ complet LAMIVUD INE [facility] (St LAMIVUDINE: DINE:6 2018 ed [facility] 35720 8244 12:00: Medical, 00 AM PC) EST sitagliptin JANUVI 07/24/ complet JANUVI A [facility] (St 25 MG Oral A:6650 2018 ed [facility] Tablet 40 12:00: Medical, [Juluvia] 00 AM PC) JANUVIA:665 EST 040 IRON: 07/24/ complet IRON MEDGEN (S t 2018 ed [facility] 12:00: Medical, 00 AM PC) EST Glipizide GLIPIZ 07/24/ TABLET 30 complet GLIPIZ JORDAN [facility] (St 10 MG Oral JORDAN:2018 ed [facility] Tablet 0488 12:00: Medical, GLIPIZIDE:3 00 AM PC) 07405 EST Fenofibrate FENOFI 07/24/ complet FENOFI BRATE [facility] (St 160 MG Oral BRATE: 2018 ed [facility] Tablet 386100 12:00: Medical, FENOFIBRATE 00 AM PC) :510961 EST CO Q-10: 07/24/ complet CO Q-10 MED GEN (St 2018 ed [facility] 12:00: Medical, 00 AM PC) EST Melatonin 3 MELATO complet MELATO LINO MEDGEN (St MG Oral LINO:2018 ed [facility] Tablet 9163 12:00: Medical, MELATONIN:1 00 AM PC) 69321 EST cobicistat PREZCO complet PREZCOB IX MEDGEN (St 150 MG / BIX:2018 ed Nad[facility] darunavir 71251 12:00: Medical , 800 MG Oral 00 AM PC) Tablet EST [Prezcobix] PREZCOBIX:1 192838 CALCIUM: complet CALCIUM MED GEN (St 2018 ed [facility] 12:00: Medical, 00 AM PC) EST Rosuvastati ROSUVA complet ROSUVA STATIN MEDGEN (St n calcium STATIN 2018 ed [facility] 10 MG Oral :52260 12:00: Medic al, Tablet 7 00 AM PC) ROSUVASTATI EST N:896295 Aspirin 81 ASPIRI 07/24/ complet ASPIRIN MED[facility] (St MG Delayed N:3084 2018 ed [facility] Release 16 12:00: Medical, Oral Tablet 00 AM PC) ASPIRIN:308 EST 416 Metoprolol METOPR 07/24/ TABLET 30 complet METOP ROLOL MEDGEN (St Tartrate 25 OLOL:8 2018 ed [facility] MG Oral 26334 12:00: Medical, Tablet 00 AM PC) METOPROLOL: EST 855766 CO Q-10: 07/24/ complet CO Q-10 MED GEN (St 2018 ed [facility] 12:00: Medical, 00 AM PC) EST pioglitazon PIOGLI complet PIOGLI TAZONE [facility] (St e 30 MG TAZONE 2018 ed [facility] Oral Tablet :09106 12:00: Medi endy, PIOGLITAZON 0 00 AM PC) E:[id number] EST clopidogrel CLOPID complet CLOPID OGREL [facility] (St 75 MG Oral OGREL: 2018 ed [facility] Tablet 025905 12:00: Medical, CLOPIDOGREL 00 AM PC) :499179 EST abacavir ABACAV 07/24/ complet ABACAVIR [facility] (St 300 MG Oral IR:242 2018 ed [place] Tablet 679 12:00: Medical, ABACAVIR:24 00 AM PC) 2679 EST Metoprolol METOPR 07/24/ TABLET 30 complet METOP ROLOL [facility]GEN (St Tartrate 25 OLOL:8 2018 ed [place] MG Oral 46117 12:00: Medical, Tablet 00 AM PC) METOPROLOL: EST 190519 pioglitazon PIOGLI 07/24/ complet PIOGLI TAZONE [facility]GEN (St e 30 MG TAZONE 2018 ed [place] Oral Tablet :06714 12:00: Medi endy, PIOGLITAZON 0 00 AM PC) E:[id number] EST cobicistat PREZCO 07/24/ complet PREZCOB IX MEDGEN (St 150 MG / BIX:16 2018 ed [place] darunavir 99515 12:00: Medical , 800 MG Oral 00 AM PC) Tablet EST [Prezcobix] PREZCOBIX:1 825262 Lamivudine LAMIVU 07/24/ complet LAMIVUD INE [facility] (St LAMIVUDINE: DINE:6 2018 ed [place] 98434 8244 12:00: Medical, 00 AM PC) EST Tamsulosin TAMSUL 07/24/ complet TAMSULO SIN [facility] (St hydrochlori OSIN:2018 ed [place] de 0.4 MG 15457 12:00: Medical , Oral 00 AM PC) Capsule EST TAMSULOSIN: 311322 Melatonin 3 MELATO 07/24/ complet MELATO LINO MED[facility] (St MG Oral LINO:2018 ed [place] Tablet 9163 12:00: Medical, MELATONIN:1 00 AM PC) 44701 EST Cholecalcif VITAMI 07/24/ complet VITAMI N D3 MED[facility] (St kyrie 1000 N 2018 ed [place] UNT Oral D3:199 12:00: Medical , Tablet 362 00 AM PC) VITAMIN EST D3:699707 VITAMIN B 07/24/ complet VITAMIN B MEDGEN (St COMPLEX: 2019 ed COMPLEX [place] 12:00: Medical, 00 AM PC) EST Vitamin E VITAMI 07/24/ complet VITAMIN E [facility] (St 400 UNT N 2018 ed [place] Oral E:2377 12:00: Medical, Capsule 35 00 AM PC) VITAMIN EST E:598464 Cholecalcif VITAMI 07/24/ complet VITAMI N D3 [facility] (St kyrie 1000 N 2019 ed [facility] UNT Oral D3:199 12:00: Medical , Tablet 362 00 AM PC) VITAMIN EST D3:656877 VITAMIN B 07/24/ complet VITAMIN B [facility] (St COMPLEX: 2019 ed COMPLEX [place] 12:00: Medical, 00 AM PC) EST Vitamin E VITAMI 07/24/ complet VITAMIN E [facility] (St 400 UNT N 2019 ed [facility] Oral E:2377 12:00: Medical, Capsule 35 00 AM PC) VITAMIN EST E:395209 Tamsulosin TAMSUL 07/24/ complet TAMSULO SIN [facility] (St hydrochlori OSIN:8 2018 ed [facility] de 0.4 MG 17938 12:00: Medical , Oral 00 AM PC) Capsule EST TAMSULOSIN: 262201 Rosuvastati ROSUVA 07/24/ complet ROSUVA STATIN [facility] (St n calcium STATIN 2018 ed [facility] 10 MG Oral :35664 12:00: Medic al, Tablet 7 00 AM PC) ROSUVASTATI EST N:379240 Aspirin 81 ASPIRI 07/24/ complet ASPIRIN [facility] (St MG Delayed N:3084 2018 ed [facility] Release 16 12:00: Medical, Oral Tablet 00 AM PC) ASPIRIN:308 EST 416 abacavir ABACAV 07/24/ complet ABACAVIR [facility] (St 300 MG Oral IR:242 2018 ed [facility] Tablet 679 12:00: Medical, ABACAVIR:24 00 AM PC) 2679 EST VITAMIN B 07/24/ complet VITAMIN B [facility] (St COMPLEX: 2018 ed [facility] 12:00: Medical, 00 AM PC) EST cobicistat PREZCO 07/24/ complet PREZCOB IX MEDGEN (St 150 MG / BIX:16 2018 ed [facility] darunavir 93137 12:00: Medical , 800 MG Oral 00 AM PC) Tablet EST [Prezcobix] PREZCOBIX:1 307878 pioglitazon PIOGLI 07/24/ complet PIOGLI TAZONE [facility] (St e 30 MG TAZONE 2018 ed [facility] Oral Tablet :53484 12:00: Medi edny, PIOGLITAZON 0 00 AM PC) E:114999 EST Tamsulosin TAMSUL 07/24/ complet TAMSULO SIN [facility] (St hydrochlori OSIN:2018 ed [place] de 0.4 MG 24042 12:00: Medical , Oral 00 AM PC) Capsule EST TAMSULOSIN: 422693 Rosuvastati ROSUVA 07/24/ complet ROSUVA STATIN [facility] (St n calcium STATIN 2019 ed [facility] 10 MG Oral :73624 12:00: Medic al, Tablet 7 00 AM PC) ROSUVASTATI EST N:373415 Cholecalcif VITAMI 07/24/ complet VITAMI N D3 MED[facility] (St kyrie 1000 N 2018 ed [place] UNT Oral D3:199 12:00: Medical , Tablet 362 00 AM PC) VITAMIN EST D3:530177 Vitamin E VITAMI 07/24/ complet VITAMIN E [facility] (St 400 UNT N 2018 ed [place] Oral E:2377 12:00: Medical, Capsule 35 00 AM PC) VITAMIN EST E:009188 Glipizide GLIPIZ 07/24/ TABLET 30 complet GLIPIZ JORDAN MEDGEN (St 10 MG Oral JORDAN:2018 ed [facility] Tablet 0488 12:00: Medical, GLIPIZIDE:3 00 AM PC) 18205 EST Fenofibrate FENOFI 07/24/ complet FENOFI BRATE MEDGEN (St 160 MG Oral BRATE: 2018 ed [facility]ia[facility] Tablet [id number] 12:00: Medical, FENOFIBRATE 00 AM PC) :[id number] EST CO Q-10: 07/24/ complet CO Q-10 MED GEN (St 2018 ed [facility] 12:00: Medical, 00 AM PC) EST clopidogrel CLOPID 07/24/ complet CLOPID OGREL MEDGEN (St 75 MG Oral OGREL: 2018 ed [facility] Tablet [id number] 12:00: Medical, CLOPIDOGREL 00 AM PC) :[id number] EST CALCIUM: 07/24/ complet CALCIUM MED GEN (St 2018 ed [place] 12:00: Medical, 00 AM PC) EST Melatonin 3 MELATO 07/24/ complet MELATO LINO MEDGEN (St MG Oral LINO:2018 ed [facility] Tablet 9163 12:00: Medical, MELATONIN:1 00 AM PC) 26302 EST Metoprolol METOPR 07/24/ TABLET 30 complet METOP ROLOL MEDGEN (St Tartrate 25 OLOL:2018 ed Nadia'sepideh MG Oral 51806 12:00: Medical, Tablet 00 AM PC) METOPROLOL: EST [id number] sitagliptin JANUVI 07/24/ complet JANUVI A MEDGEN (St 25 MG Oral A:6650 2018 ed [facility]ia[facility] Tablet 40 12:00: Medical, [Januvia] 00 AM PC) JANUVIA:665 EST 040 Lamivudine LAMIVU 07/24/ complet LAMIVUD INE MEDGEN (St LAMIVUDINE: DINE:6 2018 ed [facility]ia[facility] 20396 8244 12:00: Medical, 00 AM PC) EST IRON: 07/24/ complet IRON MEDGEN (S t 2018 ed [facility] 12:00: Medical, 00 AM PC) EST Metoprolol Metopr aborted Metopro lol MERRY Tartrate 25 olol 2018 Tartrate 25 ( Metropoli MG Oral Tartra 12:00: MG Oral christensen N [place] Tablet te 00 AM Tablet Medicine Metoprolol 25MG EST and Tartrate Oral Infectious 25MG Oral Tablet Disease) Tablet cobicistat Prezco active cobicist at MERRY 150 MG / bix 2018 150 MG / (Metrop hector darunavir 800-15 12:00: darunavir t an [place] 800 MG Oral 0MG 00 AM 800 MG Oral Medicine Tablet Oral EST Tablet and [Prezcobix] Tablet [Prezcobix] Infectious Prezcobix Disease) 800-150MG Oral Tablet Lamivudine LamiVU 05/25/ active lamiVUDi ne MERRY 100 MG Oral Dine 2017 (Metropo li Tablet 100MG 12:00: [place] LamiVUDine Oral 00 AM Medicine 100MG Oral Tablet EST and Tablet Infectious Disease) Ofloxacin 3 Ofloxa aborted Ofloxa gibran 3 MERRY MG/ML gibran 2018 MG/ML (Metropoli Ophthalmic 0.3% 12:00: Ophthalmic t an [place] Solution Ophtha 00 AM Solution Medi cine Ofloxacin lmic EDT and 0.3% Soluti Infectious Ophthalmic on Disease) Solution Rosuvastati Cresto aborted Rosuva statin MERRY n calcium r 10MG 2017 calcium 10 (M etropoli 10 MG Oral Oral 12:00: MG Oral [place] Tablet Tablet 00 AM Tablet Medicine [Crestor] EDT [Crestor] and Crestor Infectious 10MG Oral Disease) Tablet prasugrel 5 Effien aborted prasug rel 5 MERRY MG Oral t 5MG 2018 MG Oral (Metropo li Tablet Oral 12:00: Tablet [place] [Effient] Tablet 00 AM [Effient] Me dicine Effient 5MG EDT and Oral Tablet Infectio us Disease) Fenofibrate Tricor aborted Fenofi brate MERRY 145 MG Oral 145MG 2018 145 MG Oral (Metropoli Tablet Oral 12:00: Tablet [place] [Tricor] Tablet 00 AM [Tricor] Medi cine Tricor EST and 145MG Oral Infectiou s Tablet Disease) Metoprolol Metopr active Metoprol ol MERRY Tartrate 25 olol 2018 Tartrate 25 ( Metropoli MG Oral Tartra 12:00: MG Oral christensen [place] Tablet te 00 AM Tablet Medicine Metoprolol 25MG EST and Tartrate Oral Infectious 25MG Oral Tablet Disease) Tablet Glipizide GlipiZ aborted Glipizid e 10 MERRY 10 MG Oral JORDAN 2017 MG Oral (Metro adriano Tablet 10MG 12:00: Tablet [place] GlipiZIDE Oral 00 AM Medicine 10MG Oral Tablet EDT and Tablet Infectious Disease) [place]-3 [place]- active omega-3 aci d MERRY Acid Ethyl 3-acid 2015 ethyl esters (Metropoli Esters Ethyl 12:00: ([facility]) 1000 [place] ([facility]) 1000 Esters 00 AM MG Oral Med icine MG Oral 1 GM EDT Capsule and Capsule Capsul Infectious [place]-3-aci e Disease) d Ethyl Esters 1 GM Capsule sildenafil Viagra active sildenaf il MERRY 100 MG Oral 100 MG 2016 100 MG Oral (Metropoli Tablet Tablet 12:00: Tablet [place] [Viagra] 00 AM [Viagra] Medici ne Viagra 100 EST and MG Tablet Infectious Disease) levocetiriz Levoce active levocet irizi MERRY ine tirizi 2014 ne (Metropoli dihydrochlo ne 12:00: dihydrochlo r [place] ride 5 MG Dihydr 00 AM jordan 5 MG Med icine Oral Tablet ochlor EST Oral Tablet and Levocetiriz jordan 5 Infecti ous ine MG Disease) Dihydrochlo Tablet ride 5 MG Tablet [place]-3 Lovaza complet omega-3 ac id MERRY Acid Ethyl 1 GM 2013 ed ethyl esters ( Metropoli Esters OR 12:00: ([facility]) 1000 christensen N [place] ([facility]) 1000 CAPS 00 AM MG Oral Medic ine MG Oral EDT Capsule and Capsule [Lovaza] Infectio us [Lovaza] Disease) Lovaza 1 GM OR CAPS Metoprolol Metopr aborted Metopro lol MERRY Tartrate 25 olol 2013 Tartrate 25 ( Metropoli MG Oral Tartra 12:00: MG Oral christensen N Y Tablet te 25 00 AM Tablet Medicine Metoprolol MG OR EDT and Tartrate 25 TABS Infectio us MG OR TABS Disease) Lamivudine Epivir complet lamivud ine MERRY 100 MG Oral HBV 2013 ed 100 MG Oral ( Metropoli Tablet 100 MG 12:00: Tablet [place] [Epivir OR 00 AM [Epivir HBV] Med icine HBV] Epivir TABS EST and HBV 100 MG Infectiou s OR TABS Disease) Dextrometho Promet complet dextro methor MERRY rphan 3 hazine 2012 ed harrison (Metropoli MG/ML / -DM 12:00: hydrobromide ta n [place] Promethazin 6.25-1 00 AM 3 MG/ML / Medicine e 5 EDT promethazine and Hydrochlori MG/5ML hydrochlori d Infectious de 1.25 OR e 1.25 MG/ML Dise ase) MG/ML Oral SYRP Oral Solution Solution Promethazin e-DM 6.25-15 MG/5ML OR SYRP Zithromax Zithro complet {6 GRE ENWAY Z-Pk 250 max 2012 ed (azithromyci (M etropoli MG OR TABS Z-Pk 12:00: n 250 MG ta n [place] 250 MG 00 AM Oral Tablet Medic ine OR EDT [Zithromax]) and TABS } Pack Infectious [Z-PK] Disease) Fenofibrate Fenofi complet fenofi brate MERRY 160 MG Oral brate 2012 ed 160 MG Oral (Metropoli Tablet 160 MG 12:00: Tablet [place] Fenofibrate OR 00 AM Medicin e 160 MG OR TABS EDT and TABS Infectious Disease) Lamivudine Epivir 01/04/ complet lamivud ine MERRY 100 MG Oral HBV 2012 ed 100 MG Oral ( Metropoli Tablet 100 MG 12:00: Tablet [place] [Epivir OR 00 AM [Epivir HBV] Med icine HBV] Epivir TABS EDT and HBV 100 MG Infectiou s OR TABS Disease) EC-81 EC-81 complet EC-81 [place] Aspirin 81 Aspiri 2012 ed Aspirin (Met ropoli MG OR TBEC n 81 12:00: [place]ensen [place] MG OR 00 AM Medicine TBEC EDT and Infectious Disease) Glyburide glyBUR complet glyburid e MERRY 2.5 MG Oral JORDAN 2012 ed 2.5 MG Oral ( Metropoli Tablet 2.5 MG 12:00: Tablet [place] glyBURIDE OR 00 AM Medicine 2.5 MG OR TABS EDT and TABS Infectious Disease) Lisinopril Lisino complet lisinop ril MERRY 2.5 MG Oral pril 2012 ed 2.5 MG Oral ( Metropoli Tablet 2.5 MG 12:00: Tablet [place] Lisinopril OR 00 AM Medicine 2.5 MG OR TABS EDT and TABS Infectious Disease) darunavir Prezis complet darunavi r MERRY 600 MG Oral ta 600 2012 ed 600 MG Oral (Metropoli Tablet MG OR 12:00: Tablet [place] [Prezista] TABS 00 AM [Prezista] Me dicine Prezista EST and 600 MG OR Infectious TABS Disease) Promethazin Phener complet 1 ML G REENWAY e norris 50 2012 ed promethazine (Metr opoli Hydrochlori MG/ML 12:00: hydrochlor id [place] de 50 MG/ML IJ 00 AM e 50 MG/ML M edicine Injectable SOLN EST Injection and Solution [Phenergan] Infe ctious [Phenergan] Disease) Phenergan 50 MG/ML IJ SOLN Zithromax Zithro 07/14/ complet {6 [place] Z-Pk 250 max 2012 ed (azithromyci (M etropoli MG OR TABS Z-Pk 12:00: n 250 MG ta n [place] 250 MG 00 AM Oral Tablet Medic ine OR EST [Zithromax]) and TABS } Pack Infectious [Z-PK] Disease) [place]-3 Lovaza complet omega-3 ac id MERRY Acid Ethyl 1 GM 2012 ed ethyl esters ( Metropoli Esters OR 12:00: ([facility]) 1000 christensen N [place] ([facility]) 1000 CAPS 00 AM MG Oral Medic ine MG Oral EST Capsule and Capsule [Lovaza] Infectio us [Lovaza] Disease) Lovaza 1 GM OR CAPS Lamivudine Epivir complet lamivud ine MERRY 100 MG Oral HBV 2012 ed 100 MG Oral ( Metropoli Tablet 100 MG 12:00: Tablet [place] [Epivir OR 00 AM [Epivir HBV] Med icine HBV] Epivir TABS EDT and HBV 100 MG Infectiou s OR TABS Disease) Rosuvastati Cresto complet rosuva statin MERRY n calcium r 20 2011 ed calcium 20 (Met ropoli 20 MG Oral MG OR 12:00: MG Oral [place] Tablet TABS 00 AM Tablet Medicine [Crestor] EDT [Crestor] and Crestor 20 Infectiou s MG OR TABS Disease) Glyburide 5 glyBUR complet glybur jordan 5 MERRY MG Oral JORDAN 5 2011 ed MG Oral (Metropo li Tablet MG OR 12:00: Tablet [place] glyBURIDE 5 TABS 00 AM Medicin e MG OR TABS EDT and Infectious Disease) Nystatin Nystat complet nystatin MERRY 266901 in-Tri 2012 ed 099275 (Metropol i UNT/ML / amcino 12:00: UNT/ML / christ[place] Triamcinolo lone 00 AM triamcinol[place] Medicine [place] 897407 EDT e acetonide and Acetonide 1 -0.1 1 MG/ML Infec tious MG/ML UNIT/G Topical Disease) Topical M-% EX Cream Cream CREA Nystatin-Tr iamcinolone 345789-4.1 UNIT/GM-% EX CREA Levofloxaci Levaqu complet levofl oxacin MERRY n 500 MG in 500 2011 ed 500 MG Oral (M etropoli Oral Tablet MG OR 12:00: Tablet [place] [Levaquin] TABS 00 AM [Levaquin] Me dicine Levaquin EDT and 500 MG OR Infectious TABS Disease) Nasonex 50 Nasone complet mometas one MERRY MCG/ACT NA x 50 2011 ed furoate 0.05 ( Metropoli SUSP MCG/AC 12:00: MG/ACTUAT [place] T NA 00 AM Metered Dose Medici ne SUSP EDT Nasal [place] and [Nasonex] Infectious Disease) darunavir Prezis complet darunavi r MERRY 600 MG Oral ta 600 2011 ed 600 MG Oral (Metropoli Tablet MG OR 12:00: Tablet [place] [Prezista] TABS 00 AM [Prezista] Me dicine Prezista EST and 600 MG OR Infectious TABS Disease) Ritonavir Norvir complet ritonavi r MERRY 100 MG Oral 100 MG 2011 ed 100 MG Oral (Metropoli Capsule OR 12:00: Capsule [place] [Norvir] CAPS 00 AM [Norvir] Medici ne Norvir 100 EST and MG OR CAPS Infectiou s Disease) Didanosine Didano complet didanos ine MERRY 125 MG sine 2011 ed 125 MG (Metropoli Delayed 125 MG 12:00: Delayed christensen N Y Release OR 00 AM Release Oral Med icine Oral CPDR EST Capsule and Capsule Infectious Didanosine Disease) 125 MG OR CPDR [place]-3 Lovaza complet omega-3 ac id MERRY Acid Ethyl 1 GM 2011 ed ethyl esters ( Metropoli Esters OR 12:00: ([facility]) 1000 christensen N Y ([facility]) 1000 CAPS 00 AM MG Oral Medic ine MG Oral EST Capsule and Capsule [Lovaza] Infectio us [Lovaza] Disease) Lovaza 1 GM OR CAPS Tamsulosin Flomax complet tamsulo sin MERRY hydrochlori 0.4 MG 2011 ed hydrochlori d (Metropoli de 0.4 MG OR 12:00: e 0.4 MG christensen [place] Oral CAPS 00 AM Oral Capsule Medici ne Capsule EST [Flomax] and [Flomax] Infectious Flomax 0.4 Disease) MG OR CAPS Glyburide glyBUR complet glyburid e MERRY 2.5 MG Oral JORDAN 2010 ed 2.5 MG Oral ( Metropoli Tablet 2.5 MG 12:00: Tablet [place] glyBURIDE OR 00 AM Medicine 2.5 MG OR TABS EDT and TABS Infectious Disease) darunavir Prezis complet darunavi r MERRY 600 MG Oral ta 600 2010 ed 600 MG Oral (Metropoli Tablet MG OR 12:00: Tablet [place] [Prezista] TABS 00 AM [Prezista] Me dicine Prezista EDT and 600 MG OR Infectious TABS Disease) Ritonavir Norvir complet ritonavi r MERRY 100 MG Oral 100 MG 2011 ed 100 MG Oral (Metropoli Tablet OR 12:00: Tablet [place] [Norvir] TABS 00 AM [Norvir] Medici ne Norvir 100 EDT and MG OR TABS Infectiou s Disease) Insurance Providers Payer name Policy type / Policy ID Covered Covered Policy Plan Coverage type alliance party ID alliance party's Truong Inform ation relationship to truong BLUE CROSS [id number] SP [id number] [facility] MEDICAID [id number] SP [id number] BLUE CROSS [id number] SP [id number] [facility] DUAL [id number] SP [id number] COMPLETE EMPIRE BC/BS [id number] 1 [id number] MEDICAID OF [id number] [place] MED[place] [id number] PART B [facility] Medicaid of Supplemental 0 Self 0 [place] Policy [facility] Individual 0 Self 0 Behavioral Policy [facility] [id number] SP [id number] HEALTHCARE (MEDICARE) IME MEDICARE [id number] SP [id number] [facility] [id number] SP [id number] [facility] MEDICAID [id number] SP [id number] Medicaid of Supplemental 0 Self 0 [place] Policy BC[place] of [place] Individual 0 Self 0 [place] of Supplemental 0 Self 0 [place] Policy [place] of [place] Individual 0 Self 0 [place] Policy BLUE CROSS O [id number] 01 [id number] MEDIBLUE OP O [id number] 01 [id number] 01 [id number] A Medicaid of Supplemental 0 Self 0 [place] Policy BC[place] of [place] Individual 0 Self 0 [place] Policy BLUE CROSS [id number] SP [id number] SENIOR PLAN BLUE CROSS [id number] SP [id number] SENIOR PLAN BC HMO [id number] SP [id number] BCBS of [place] [facility] Policy 0 Self 0 [place] Medicare Part Medicare 0 Self 0 [place] of [place] Medicare Part Medicare 0 Self 0 [place] BC/BS BC INDEMNITY [id number] SP [id number] MEDICARE [id number] SP [id number] MEDICAID [id number] SP [id number] MEDICARE [id number] SP [id number] MEDICARE [id number] SP [id number] A Problems, Conditions, and Diagnoses Code Display Name Description Problem Type Effective Data Dates Source(s) N18.3 Chronic kidney CHRONIC KIDNEY Problem 03/14/2020 MED[facility] (St disease, stage 3 DISEASE, STAGE 3 12:00:00 AM J ohn's (moderate) (MODERATE) EDT Medical, PC) N18.3 Chronic kidney CHRONIC KIDNEY Problem 03/14/2020 MEDGEN (St disease, stage 3 DISEASE, STAGE 3 12:00:00 AM J ohn's (moderate) (MODERATE) EDT Medical, PC) N18.3 Chronic kidney CHRONIC KIDNEY Problem 03/14/2020 MEDGEN (St disease, stage 3 DISEASE, STAGE 3 12:00:00 AM J ohn's (moderate) (MODERATE) EDT Medical, PC) E55.9 Vitamin D VITAMIN D Problem 01/22/2019 MEDGEN (St deficiency, DEFICIENCY, 12:00:00 AM Nadia's unspecified UNSPECIFIED EDT Medical, PC) E55.9 Vitamin D VITAMIN D Problem 01/22/2019 MEDGEN (St deficiency, DEFICIENCY, 12:00:00 AM Nadia's unspecified UNSPECIFIED EDT Medical, PC) E55.9 Vitamin D VITAMIN D Problem 01/22/2019 MEDGEN (St deficiency, DEFICIENCY, 12:00:00 AM Nadia's unspecified UNSPECIFIED EDT Medical, PC) R21 Rash and other RASH AND OTHER Problem 07/24/2018 MEDGEN (St nonspecific skin NONSPECIFIC SKIN 12:00:00 AM J ohn's eruption ERUPTION EST Medical, PC) N18.4 Chronic kidney CHRONIC KIDNEY Problem 07/24/2018 MED[facility] (St disease, stage 4 DISEASE, STAGE 4 12:00:00 AM J ohn's (severe) (SEVERE) EST Medical, PC) R21 Rash and other RASH AND OTHER Problem 07/24/2018 MEDGEN (St nonspecific skin NONSPECIFIC SKIN 12:00:00 AM J ohn's eruption ERUPTION EST Medical, PC) N18.4 Chronic kidney CHRONIC KIDNEY Problem 07/24/2018 MEDGEN (St disease, stage 4 DISEASE, STAGE 4 12:00:00 AM J ohn's (severe) (SEVERE) EST Medical, PC) R21 Rash and other RASH AND OTHER Problem 07/24/2018 MEDGEN (St nonspecific skin NONSPECIFIC SKIN 12:00:00 AM J ohn's eruption ERUPTION EST Medical, PC) N18.4 Chronic kidney CHRONIC KIDNEY Problem 07/24/2018 MEDGEN (St disease, stage 4 DISEASE, STAGE 4 12:00:00 AM J ohn's (severe) (SEVERE) EST Medical, PC) [id number] Human Hiv Infection Problem 05/15/2018 MERRY immunodeficiency 12:00:00 AM (Metrop olitan virus infection EST [place] Medici ne (disorder) and Infectious Disease) 18890166 Human Hiv Infection Problem 05/15/2018 MERRY immunodeficiency 12:00:00 AM (Metrop olitan virus infection EST [place] Medici ne (disorder) and Infectious Disease) 21330440 Human Hiv Infection Problem 05/15/2018 MERRY immunodeficiency 12:00:00 AM (Metrop olitan virus infection EST [place] Medici ne (disorder) and Infectious Disease) [id number] Human Hiv Infection Problem 05/15/2018 MERRY immunodeficiency 12:00:00 AM (Metrop olitan virus infection EST [place] Medici ne (disorder) and Infectious Disease) [id number] Human Hiv Infection Problem 05/15/2018 MERRY immunodeficiency 12:00:00 AM (Metrop olitan virus infection EST [place] Medici ne (disorder) and Infectious Disease) 40889118 Human Hiv Infection Problem 05/15/2018 MERRY immunodeficiency 12:00:00 AM (Metrop olitan virus infection EST [place] Medici ne (disorder) and Infectious Disease) [id number] Human Hiv Infection Problem 05/15/2018 MERRY immunodeficiency 12:00:00 AM (Metrop olitan virus infection EST [place] Medici ne (disorder) and Infectious Disease) 042. 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 Immunodeficiency Immunodeficiency 12:00:00 AM ( [facility] Virus [hiv] Virus [hiv] [facility] Medicine and Infectious Disease) 692.9 Contct Dermatit&oth Contct Dermatit&oth Problem 012 MERRY Eczema-Uns Caus Eczema-Uns Caus 12:00:00 AM ([facility] Medicine and Infectious Disease) [id number] Diabetes mellitus Diabetes Mellitus Problem 10/07/2011 MERRY (disorder) 12:00:00 AM ([facility] Medicine and Infectious Disease) [id number] Chronic kidney Chronic Renal Problem 10/07/2011 [place] disease (disorder) Failure 12:00:00 AM ([facility] Medicine and Infectious Disease) 042. 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/2011 [place] Immunodeficiency Immunodeficiency 12:00:00 AM ( [facility] Virus [hiv] Virus [hiv] [facility] Medicine and Infectious Disease) 692.9 Contct Dermatit&oth Contct Dermatit&oth Problem 012 [place] Eczema-Uns Caus Eczema-Uns Caus 12:00:00 AM ([facility] Medicine and Infectious Disease) [id number] Chronic kidney Chronic Renal Problem 10/07/2011 [place] disease (disorder) Failure 12:00:00 AM ([facility] Medicine and Infectious Disease) [id number] Diabetes mellitus Diabetes Mellitus Problem 10/07/2011 [place] (disorder) 12:00:00 AM ([facility] Medicine and Infectious Disease) 042. 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/2011 [place] Immunodeficiency Immunodeficiency 12:00:00 AM ( [facility] Virus [hiv] Virus [hiv] [facility] Medicine and Infectious Disease) 692.9 Contct Dermatit&oth Contct Dermatit&oth Problem 012 MERRY Eczema-Uns Caus Eczema-Uns Caus 12:00:00 AM ([facility] Medicine and Infectious Disease) [id number] Chronic kidney Chronic Renal Problem 10/07/2011 [place] disease (disorder) Failure 12:00:00 AM ([facility] Medicine and Infectious Disease) 46835709 Diabetes mellitus Diabetes Mellitus Problem 10/07/2011 MERRY (disorder) 12:00:00 AM ([facility] Medicine and Infectious Disease) 042. 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 Immunodeficiency Immunodeficiency 12:00:00 AM ( [facility] Virus [hiv] Virus [hiv] [facility] Medicine and Infectious Disease) 692.9 Contct Dermatit&oth Contct Dermatit&oth Problem 012 MERRY Eczema-Uns Caus Eczema-Uns Caus 12:00:00 AM ([facility] Medicine and Infectious Disease) [id number] Chronic kidney Chronic Renal Problem 10/07/2011 [place] disease (disorder) Failure 12:00:00 AM ([facility] Medicine and Infectious Disease) [id number] Diabetes mellitus Diabetes Mellitus Problem 10/07/2011 MERRY (disorder) 12:00:00 AM ([facility] Medicine and Infectious Disease) 042. 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 Immunodeficiency Immunodeficiency 12:00:00 AM ( [facility] Virus [hiv] Virus [hiv] [facility] Medicine and Infectious Disease) 692.9 Contct Dermatit&oth Contct Dermatit&oth Problem 012 MERRY Eczema-Uns Caus Eczema-Uns Caus 12:00:00 AM ([facility] Medicine and Infectious Disease) [id number] Chronic kidney Chronic Renal Problem 10/07/2011 [place] disease (disorder) Failure 12:00:00 AM ([facility] Medicine and Infectious Disease) [id number] Diabetes mellitus Diabetes Mellitus Problem 10/07/2011 MERRY (disorder) 12:00:00 AM ([facility] Medicine and Infectious Disease) 042. 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 Immunodeficiency Immunodeficiency 12:00:00 AM ( [facility] Virus [hiv] Virus [hiv] [facility] Medicine and Infectious Disease) 692.9 Contct Dermatit&oth Contct Dermatit&oth Problem 012 MERRY Eczema-Uns Caus Eczema-Uns Caus 12:00:00 AM ([facility] Medicine and Infectious Disease) [id number] Chronic kidney Chronic Renal Problem 10/07/2011 [place] disease (disorder) Failure 12:00:00 AM ([facility] Medicine and Infectious Disease) 14620215 Diabetes mellitus Diabetes Mellitus Problem 10/07/2011 MERRY (disorder) 12:00:00 AM ([facility] Medicine and Infectious Disease) 042. 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/2011 [place] Immunodeficiency Immunodeficiency 12:00:00 AM ( [facility] Virus [hiv] [facility]) 692.9 Contct Dermatit&oth Contct Dermatit&oth Problem 012 [place] Eczema-Uns Caus Eczema-Uns Caus 12:00:00 AM ([facility]) [id number] Chronic kidney Chronic Renal Problem 10/07/2011 [facility] Y disease (disorder) Failure 12:00:00 AM ([facility] [id number] Diabetes mellitus Diabetes Mellitus Problem 10/07/2011 [place] (disorder) 12:00:00 AM ([facility] Medicine and Infectious Disease) E11.9 Type 2 diabetes TYPE 2 DIABETES Diagnosis 09/27/2019 Amie [facility]ountain mellitus without MELLITUS WITHOUT 11:18:00 AM M edical complications COMPLICATIONS EDT Center J06.9 Acute upper ACUTE UPPER Diagnosis 09/27/2019 [facility] respiratory RESPIRATORY 11:18:00 AM Medical infection, INFECTION, EDT Center unspecified UNSPECIFIED R05 Cough COUGH Diagnosis 09/27/2019 [facility] 11:18:00 AM Medical EDT Center Surgeries/Procedures Procedure Description Date Indications Data Source(s) Documentation of 03/14/2020 MED[facility] (St current medications 12:00:00 Shirley Suarez edical, (procedure) AM EDT PC) Documentation of 03/14/2020 MEDGEN (St current medications 12:00:00 Jonathans Daniela edical, (procedure) AM EDT PC) Documentation of 03/14/2020 MEDGEN (St current medications 12:00:00 Nadia's Daniela edical, (procedure) AM EDT PC) Documentation of 03/14/2020 MEDGEN (St current medications 12:00:00 Nadia's Daniela edical, (procedure) AM EDT PC) Documentation of 03/14/2020 MED[facility] (St current medications 12:00:00 Nadia's Daniela edical, (procedure) AM EDT PC) OFFICE OUTPATIENT 03/14/2020 MED[facility] (St VISIT 15 MINUTES 12:00:00 Shirley Self endy, AM EDT PC) Documentation of 03/14/2020 MEDGEN (St current medications 12:00:00 Nadia's M edical, (procedure) AM EDT PC) Documentation of 03/14/2020 MEDGEN (St current medications 12:00:00 Nadia's M edical, (procedure) AM EDT PC) Documentation of 03/14/2020 MEDGEN (St current medications 12:00:00 Nadia's M edical, (procedure) AM EDT PC) Documentation of 03/14/2020 MEDGEN (St current medications 12:00:00 Nadia's M edical, (procedure) AM EDT PC) Documentation of 03/14/2020 MED[facility] (St current medications 12:00:00 Nadia's M edical, (procedure) AM EDT PC) OFFICE OUTPATIENT 03/14/2020 MED[facility] (St VISIT 15 MINUTES 12:00:00 Nadia's Medi endy, AM EDT PC) Documentation of 03/14/2020 MEDGEN (St current medications 12:00:00 Nadia's M edical, (procedure) AM EDT PC) Documentation of 03/14/2020 MEDGEN (St current medications 12:00:00 Nadia's M edical, (procedure) AM EDT PC) OFFICE OUTPATIENT 03/14/2020 MED[facility] (St VISIT 15 MINUTES 12:00:00 Nadia's Medi endy, AM EDT PC) Reported medical Reported medical history 02/13/2020 [place] history - DM, HTN, - DM, HTN, HIV, CKD 12:00:00 ( [facility] HIV, CKD AM EDT Medicine and Infectious Disease) Surgical / procedural Surgical / procedural 02/13/2020 [place] history - (R) history - (R) [facility] 12:[facility]T Medicine and Endarterectomy Infectious Disease) Clinical summary 01/28/2020 MERRY provided to patient 12:00:00 ([facility] AM EDT - Medicine and 01/28/2020 Infectious 12:00:00 Disease) AM EDT continue current 01/28/2020 MERRY medication 12:00:00 ([facility] AM EDT - Medicine and 01/28/2020 Infectious 12:00:00 Disease) AM EDT Reported medical Reported medical history 12/27/2019 [place] history - DM, HTN, - DM, HTN, HIV, CKD 12:00:00 ( [facility] HIV, CKD AM EDT Medicine and Infectious Disease) Surgical / procedural Surgical / procedural 12/27/2019 MERRY history - (R) history - (R) Carotid 12:00:00 ([facility] Carotid Endarterectomy AM EDT Medicine and Endarterectomy Infectious Disease) Clinical summary 12/27/2019 MERRY provided to patient 12:00:00 ([facility] - Medicine and 12/27/2019 Infectious 12:00:00 Disease) AM EDT continue current 12/27/2019 MERRY medication 12:00:00 ([facility] AM EDT - Medicine and 12/27/2019 Infectious 12:00:00 Disease) AM EDT Reported medical Reported medical history 11/22/2019 MERRY history - DM, HTN, - DM, HTN, HIV, CKD 12:00:00 ( [facility] HIV, CKD AM EDT Medicine and Infectious Disease) Surgical / procedural Surgical / procedural 11/22/2019 MERRY history - (R) history - (R) Carotid 12:00:00 ([facility] Carotid Endarterectomy AM EDT Medicine and Endarterectomy Infectious Disease) Clinical summary 11/22/2019 MERRY provided to patient 12:00:00 ([facility] AM EDT - Medicine and 11/22/2019 Infectious 12:00:00 Disease) AM EDT continue current 11/22/2019 MERRY medication 12:00:00 ([facility] EDT - Medicine and 11/22/2019 Infectious 12:00:00 Disease) AM EDT COLLECTION VENOUS Routine 11/22/2019 [place] BLOOD VENIPUNCTURE Venipunctfingerheel Stick 12:00:00 ([facility] AM EDT Medicine and Infectious Disease) Reported medical Reported medical history 09/14/2019 MERRY history - DM, HTN, - DM, HTN, HIV, CKD 12:00:00 ( [facility] HIV, CKD AM EDT Medicine and Infectious Disease) Surgical / procedural Surgical / procedural 09/14/2019 MERRY history - (R) history - (R) Carotid 12:00:00 ([facility] Carotid Endarterectomy AM EDT Medicine and Endarterectomy Infectious Disease) Clinical summary 09/14/2019 MERRY provided to patient 12:00:00 ([facility] AM EDT - Medicine and 09/14/2019 Infectious 12:00:00 Disease) AM EDT continue current 09/14/2019 MERRY medication 12:00:00 ([facility] AM [facility]T - Medicine and 09/14/2019 Infectious 12:00:00 Disease) AM EDT Documentation of 08/03/2019 [facility] (St current medications 12:00:00 [facility], (procedure) AM EST PC) Documentation of 08/03/2019 [facility] (St current medications 12:00:00 [facility], (procedure) AM EST PC) Documentation of 08/03/2019 [facility] (St current medications 12:00:00 [facility], (procedure) AM EST PC) Documentation of 08/03/2019 [facility] (St current medications 12:00:00 [facility], (procedure) AM EST PC) Documentation of 08/03/2019 [facility] (St current medications 12:00:00 [facility], (procedure) AM EST PC) Documentation of 08/03/2019 [facility] (St current medications 12:00:00 [facility], (procedure) AM EST PC) Documentation of 08/03/2019 [facility] (St current medications 12:00:00 [facility], (procedure) AM EST PC) Documentation of 08/03/2019 [facility] (St current medications 12:00:00 [facility], (procedure) AM EST PC) OFFICE OUTPATIENT 08/03/2019 [facility] (St VISIT 15 MINUTES 12:00:00 [facility], AM EST PC) Documentation of 08/03/2019 [facility] (St current medications 12:00:00 [facility], (procedure) AM EST PC) Documentation of 08/03/2019 [facility] (St current medications 12:00:00 [facility], (procedure) AM EST PC) Documentation of 08/03/2019 [facility] (St current medications 12:00:00 [facility], (procedure) AM EST PC) Documentation of 08/03/2019 [facility] (St current medications 12:00:00 [facility], (procedure) AM EST PC) Documentation of 08/03/2019 [facility] (St current medications 12:00:00 [facility], (procedure) AM EST PC) Documentation of 08/03/2019 [facility] (St current medications 12:00:00 [facility], (procedure) AM EST PC) Documentation of 08/03/2019 [facility] (St current medications 12:00:00 [facility], (procedure) AM EST PC) Documentation of 08/03/2019 [facility] (St current medications 12:00:00 [facility], (procedure) AM EST PC) OFFICE OUTPATIENT 08/03/2019 [facility] (St VISIT 15 MINUTES 12:00:00 [facility], AM EST PC) Documentation of 08/03/2019 [facility] (St current medications 12:00:00 [facility], (procedure) AM EST PC) Documentation of 08/03/2019 [facility] (St current medications 12:00:00 [facility], (procedure) AM EST PC) Documentation of 08/03/2019 [facility] (St current medications 12:00:00 [facility], (procedure) AM EST PC) Documentation of 08/03/2019 [facility] (St current medications 12:00:00 [facility], (procedure) AM EST PC) Documentation of 08/03/2019 [facility] (St current medications 12:00:00 [facility], (procedure) AM EST PC) Documentation of 08/03/2019 [facility] (St current medications 12:00:00 [facility], (procedure) AM EST PC) Documentation of 08/03/2019 [facility] (St current medications 12:00:00 [facility], (procedure) AM EST PC) OFFICE OUTPATIENT 08/03/2019 [facility] (St VISIT 15 MINUTES 12:00:00 [facility], AM EST PC) Reported medical Reported medical history 02/22/2019 MERRY history - DM, HTN, - DM, HTN, HIV, CKD 12:00:00 ( [facility] HIV, CKD AM EDT Medicine and Infectious Disease) Surgical / procedural Surgical / procedural 02/22/2019 [place] history - (R) history - (R) Carotid 12:00:00 ([facility] Carotid Endarterectomy AM EDT Medicine and Endarterectomy Infectious Disease) Reported medical Reported medical history 02/22/2019 [place] history - DM, HTN, - DM, HTN, HIV, CKD 12:00:00 ( [facility] HIV, CKD AM EDT Medicine and Infectious Disease) Surgical / procedural Surgical / procedural 02/22/2019 MERRY history - (R) history - (R) Carotid 12:00:00 ([facility] Carotid Endarterectomy AM EDT Medicine and Endarterectomy Infectious Disease) Clinical summary 02/22/2019 MERRY provided to patient 12:00:00 ([facility] AM EDT - Medicine and 02/22/2019 Infectious 12:00:00 Disease) AM EDT Education (procedure) 02/22/2019 [place] AY 12:00:00 ([facility] Y AM EDT - Medicine and 02/22/2019 Infectious 12:00:00 Disease) AM EDT continue current 02/22/2019 MERRY medication 12:00:00 ([facility] Y AM EDT - Medicine and 02/22/2019 Infectious 12:00:00 Disease) AM EDT Documentation of 01/22/2019 [facility] (St current medications 12:00:00 [facility], (procedure) AM EDT PC) Documentation of 01/22/2019 [facility] (St current medications 12:00:00 [facility], (procedure) AM EDT PC) OFFICE OUTPATIENT 01/22/2019 [facility] (St VISIT 15 MINUTES 12:00:00 [facility], AM EDT PC) Documentation of 01/22/2019 [facility] (St current medications 12:00:00 [facility], (procedure) AM EDT PC) Documentation of 01/22/2019 [facility] (St current medications 12:00:00 [facility], (procedure) AM EDT PC) OFFICE OUTPATIENT 01/22/2019 [facility] (St VISIT 15 MINUTES 12:00:00 [facility], AM EDT PC) Documentation of 01/22/2019 [facility] (St current medications 12:00:00 [facility], (procedure) AM EDT PC) Documentation of 01/22/2019 [facility] (St current medications 12:00:00 [facility], (procedure) AM EDT PC) OFFICE OUTPATIENT 01/22/2019 [facility] (St VISIT 15 MINUTES 12:00:00 [facility], AM EDT PC) Clinical summary 12/14/2018 MERRY provided to patient 12:00:00 ([facility] CASTELLANOS AM EDT - Medicine and 12/14/2018 Infectious 12:00:00 Disease) AM EDT continue current 12/14/2018 [place] medication 12:00:00 ([facility] N Y AM EDT - Medicine and 12/14/2018 Infectious 12:00:00 Disease) AM EDT COLLECTION VENOUS Routine 12/14/2018 [place] BLOOD VENIPUNCTURE Venipunctfingerheel Stick 12:00:00 ([facility] AM EDT Medicine and Infectious Disease) Documentation of 07/24/2018 [facility] (St current medications 12:00:00 [facility], (procedure) AM EST PC) Medication 07/24/2018 [facility] (St Reconciliation 12:00:00 [facility], (procedure) AM EST PC) Documentation of 07/24/2018 [facility] (St current medications 12:00:00 [facility], (procedure) AM EST PC) Documentation of 07/24/2018 [facility] (St current medications 12:00:00 [facility], (procedure) AM EST PC) Medication 07/24/2018 [facility] (St Reconciliation 12:00:00 [facility], (procedure) AM EST PC) Documentation of 07/24/2018 [facility] (St current medications 12:00:00 [facility], (procedure) AM EST PC) Documentation of 07/24/2018 [facility] (St current medications 12:00:00 [facility], (procedure) AM EST PC) Medication 07/24/2018 [facility] (St Reconciliation 12:00:00 [facility], (procedure) AM EST PC) Documentation of 07/24/2018 [facility] (St current medications 12:00:00 [facility], (procedure) AM EST PC) Results ID Date Data Source [id number] 03/16/2020 12:00:00 AM EDT [facility] ([facility] Name Value Range Interpretation Code Description Data Supporting Source(s) Document(s ) PTH, Intact 11 pg/mL Below low normal [facility] ([facility]) ID Date Data Source [id number] 03/16/2020 12:00:00 AM EDT [facility] ([facility] Name Value Range Interpretation Code Description Data Supporting Source(s) Document(s ) Ferritin, 376 ng/mL Normal (applies to [facility] (St Serum non-numeric [facility] results) [facility], ) ID Date Data Source [id number] 03/16/2020 12:00:00 AM EDT [facility] ([facility]) Name Value Range Interpretation Description Data Sup porting Code Source(s) Document(s ) Deprecated 3.1 mg/dL Normal (applies to [facility] (St Phosphorus non-numeric [facility] [Mass/time] in results) [facility], ) 24 hour Urine ID Date Data Source [id number] 03/16/2020 12:00:00 AM EDT [facility] ([facility]) Name Value Range Interpretation Description Data Sup porting Code Source(s) Document(s ) Vitamin D, 30.3 Normal [facility] 25-Hydroxy ng/mL non-numeric [facility] results) [facility], ) ID Date Data Source [id number] 03/16/2020 12:00:00 AM EDT [facility] ([facility], ) Name Value Range Interpretation Code Description Data Supporting Source(s) Document(s ) Protein,To 20.9 mg/dL Normal ([facility] (S t [place],Urine non-numeric [facility] results) [facility]) Creatinine 83.2 mg/dL Normal (applies to [facility] (S t , Urine non-numeric [facility] results) [facility], ) Protein/Cr 251 mg/g Above high normal [facility] (St eat Ratio creat [facility], ) ID Date Data Source [id number] 03/16/2020 12:00:00 AM EDT [facility] ([facility], ) Name Value Range Interpretation Description Data Sup porting Code Source(s) Document(s ) Iron 333 ug/dL Normal (applies to [facility] (St Bind.Cap.(TIBC non-numeric [facility]ia's ) results) [facility], ) Iron 78 ug/dL Normal (applies to [facility] (St [Mass/volume] non-numeric [facility] in Serum or results) [facility], ) Plasma UIBC 255 ug/dL Normal (applies to [facility] (St non-numeric [facility]'s results) [facility], ) Iron 23 % Normal (applies to [facility] (St saturation non-numeric [facility]'s [Mass results) [facility], PC) Fraction] in Serum or Plasma ID Date Data Source [id number] 03/16/2020 12:00:00 AM EDT [facility] ([facility], ) Name Value Range Interpretation Description Data Sup porting Code Source(s) Document(s ) WBC 0-5 Normal (applies [facility] (St to non-numeric [facility] results) [facility], PC) Epithelial None seen Normal (applies [facility] (St Cells (non to non-numeric [facility] renal) results) [facility], PC) RBC None seen Normal (applies [facility] (St to non-numeric [facility] results) [facility], PC) Casts [#/area] Present Abnormal (applies [facility] (St in Urine to non-numeric [facility]'s sediment by results) Medical, PC) Automated count Crystal Type Calcium Normal (applies [facility] (St Oxalate to non-numeric [facility] results) [facility], PC) Cast Type Hyaline Normal (applies [facility] (St casts to non-numeric [facility] results) [facility], PC) Crystals Present Abnormal (applies [facility] (St [#/area] in to non-numeric [facility] Body fluid by results) [facility], PC) Light microscopy Mucus Threads Present Normal (applies [facility] (St to non-numeric [facility] results) [facility], PC) Bacteria None seen Normal (applies [facility] (St [Presence] in to non-numeric [facility] Prostatic results) [facility], PC) fluid by Light microscopy ID Date Data Source [id number] 03/16/2020 12:00:00 AM EDT [facility] ([facility], ) Name Value Range Interpretation Description Data Sup porting Code Source(s) Document(s ) pH of Lower 5.5 Normal (applies [facility] (St respiratory to non-numeric [facility] specimen results) Medical, PC) Specific gravity 1.022 Normal (applies [facility] (St of Pericardial to non-numeric [facility] fluid by results) Medical, Refractometry PC) Urine-Color Yellow Normal (applies [facility] (St to non-numeric [facility] results) Medical, PC) Appearance of Clear Normal (applies [facility] (St Abdomen to non-numeric [facility] results) Medical, PC) WBC Esterase Negative Normal (applies [facility] (St to non-numeric [facility] results) Medical, PC) Glucose Abnormal [facility] (St [Mass/volume] in (applies to [facility] Urine collected non-numeric Medical, for unspecified results) PC) duration Protein Trace Normal (applies [facility] (St [Mass/volume] in to non-numeric [facility]'s Lower results) Medical, respiratory PC) specimen Occult Blood Negative Normal (applies [facility] (St to non-numeric [facility]'s results) Medical, ) Ketones Negative Normal (applies [facility] (St [Presence] in to non-numeric [facility] Blood by Tablet results) Medical, ) Bilirubin Negative Normal (applies [facility] (St [Presence] in to non-numeric [facility] Peritoneal fluid results) Medical, ) Nitrite, Urine Negative Normal (applies [facility] (S t to non-numeric [facility]'s results) Medical, ) Urobilinogen,Elizabet 0.2 mg/dL Normal (applies [facility] (St i-Qn to non-numeric [facility] results) Medical, ) Microscopic Normal (applies [facility] (St Examination to non-numeric [facility] results) Medical, ) Microscopic See below: Normal (applies [facility] (St Examination to non-numeric [facility] results) Medical, ) ID Date Data Source [id number] 03/16/2020 12:00:00 AM EDT [facility] ([facility], ) Name Value Range Interpretation Description Data Sup porting Code Source(s) Document(s ) Glucose 273 Above high [facility] (St [Mass/volume] in mg/dL normal [facility] Urine collected for Medical, unspecified PC) duration Creatinine 2.10 Above high [facility] (St [Interpretation] in mg/dL normal [facility] Urine Medical, ) Urea nitrogen 23 mg/dL Normal (applies [facility] (St [Mass/volume] in to non-numeric [facility] Serum or Plasma results) Medical, ) eGFR If Africn Am 33 Below low normal [facility] N (St mL/min/1 [facility] .73 Medical, ) BUN/Creatinine 11 Normal (applies [facility] (S t Ratio to non-numeric [facility]'s results) Medical, ) eGFR If NonAfricn 28 Below low normal [facility] N (St Am mL/min/1 [facility]ia's .73 [facility], ) Potassium 4.6 Normal (applies [facility] (St [Mass/volume] in mmol/L to non-numeric [facility] Blood results) Medical, ) Sodium 137 Normal (applies [facility] (St [Moles/volume] in mmol/L to non-numeric [facility] Serum or Plasma results) Medical, PC) Carbon dioxide, 25 Normal (applies [facility] ( St total mmol/L to non-numeric [facility]'s [Moles/volume] in results) Medical, Serum or Plasma PC) Calcium 10.0 Normal (applies [facility] (St [Moles/volume] in mg/dL to non-numeric [facility] Urine collected for results) Medical, unspecified PC) duration Chloride 97 Normal (applies [facility] (St [Moles/volume] in mmol/L to non-numeric [facility] Serum or Plasma results) Medical, PC) Protein 7.6 g/dL Normal (applies [facility] (St [Mass/volume] in to non-numeric [facility] Serum or Plasma results) Medical, PC) Microalbumin 4.5 g/dL Normal (applies [facility] (St [Mass/time] in to non-numeric [facility] Urine collected for results) Medical, unspecified PC) duration A/G Ratio 1.5 Normal (applies [facility] (St to non-numeric [facility] results) Medical, PC) Globulin, Total 3.1 g/dL Normal (applies [facility] ( St to non-numeric [facility] results) Medical, PC) Bilirubin.total 0.5 Normal (applies [facility] ( St [Mass/volume] in mg/dL to non-numeric [facility] Serum or Plasma results) Medical, PC) Aspartate 24 IU/L Normal (applies [facility] (St aminotransferase to non-numeric [facility]ia's [Enzymatic results) Medical, activity/volume] in PC) Serum or Plasma Alkaline 49 IU/L Normal (applies [facility] (St phosphatase to non-numeric [facility]'s [Enzymatic results) Medical, activity/volume] in PC) Serum, Plasma or Blood Alanine 23 IU/L Normal (applies [facility] (St aminotransferase to non-numeric [facility]'s [Enzymatic results) Medical, activity/volume] in PC) Serum or Plasma ID Date Data Source [id number] 03/16/2020 12:00:00 AM EDT [facility] ([facility]) Name Value Range Interpretation Description Data Sup porting Code Source(s) Document(s ) Leukocytes 7.8 Normal (applies [facility] (St [#/volume] in x10E3/uL to non-numeric [facility] Blood by results) [facility], ) Automated count Erythrocytes 4.20 Normal (applies [facility] (St [#/volume] in x10E6/uL to non-numeric [facility] Blood by results) [facility], ) Automated count Hemoglobin 13.5 Normal (applies [facility] (St [Mass/volume] in g/dL to non-numeric [facility] Blood results) [facility], ) Hematocrit 40.3 % Normal (applies [facility] (St [Volume to non-numeric Nadia's Fraction] of results) [facility], ) Blood by Automated count MCV 96 fL Normal (applies [facility] (St to non-numeric Nadia's results) [facility], ) MCHC 33.5 Normal (applies [facility] (St g/dL to non-numeric Nadia's results) [facility], ) MCH 32.1 pg Normal (applies [facility] (St to non-numeric Nadia's results) [facility], ) RDW 11.8 % Normal (applies [facility] (St to non-numeric Nadia's results) [facility], ) Neutrophils [#] 50 % Normal (applies [facility] ( St in Body fluid by to non-numeric [facility]ia's Manual count results) [facility], ) Platelets 210 Normal (applies [facility] (St [#/area] in x10E3/uL to non-numeric [facility] Blood by results) [facility], ) Microscopy high power field Lymphs 37 % Normal (applies [facility] (St to non-numeric Nadia's results) [facility], ) Monocytes 8 % Normal (applies [facility] (St [#/volume] in to non-numeric Nadia's Cord blood results) [facility], ) Eos 5 % Normal (applies [facility] (St to non-numeric Nadia's results) [facility], ) Basos 0 % Normal (applies [facility] (St to non-numeric Nadia's results) [facility], ) Neutrophils 3.9 Normal (applies [facility] (St (Absolute) x10E3/uL to non-numeric [facility]'s results) [facility], ) Monocytes(Absolu 0.6 Normal (applies [facility] (St te) x10E3/uL to non-numeric Nadia's results) [facility], ) Lymphs 2.9 Normal (applies [facility] (St (Absolute) x10E3/uL to non-numeric [facility]ia's results) [facility], ) Immature 0 % Normal (applies [facility] (St Granulocytes to non-numeric [facility]ia's results) [facility], ) Baso (Absolute) 0.0 Normal (applies [facility] ( St x10E3/uL to non-numeric Nadia's results) [facility], ) Eos (Absolute) 0.4 Normal (applies [facility] (S t x10E3/uL to non-numeric Nadia's results) [facility], ) Immature Grans 0.0 Normal (applies [facility] (S t (Abs) x10E3/uL to non-numeric [facility]'s results) [facility], ) ID Date Data Source [id number] 03/16/2020 12:00:00 AM EDT [facility] ([facility], ) Name Value Range Interpretation Code Description Data Supporting Source(s) Document(s ) PTH, Intact 11 pg/mL Below low normal [facility] ([facility], ) ID Date Data Source [id number] 03/16/2020 12:00:00 AM EDT [facility] ([facility], ) Name Value Range Interpretation Code Description Data Supporting Source(s) Document(s ) Ferritin, 376 ng/mL Normal (applies to [facility] (St Serum non-numeric Nadia's results) [facility], ) ID Date Data Source [id number] 03/16/2020 12:00:00 AM EDT [facility] ([facility], ) Name Value Range Interpretation Description Data Sup porting Code Source(s) Document(s ) Deprecated 3.1 mg/dL Normal (applies to [facility] (St Phosphorus non-numeric Nadia's [Mass/time] in results) [facility], ) 24 hour Urine ID Date Data Source [id number] 03/16/2020 12:00:00 AM EDT [facility] ([facility], ) Name Value Range Interpretation Description Data Sup porting Code Source(s) Document(s ) Vitamin D, 30.3 Normal (applies to [facility] (St 25-Hydroxy ng/mL non-numeric Nadia's results) [facility]) ID Date Data Source [id number] 03/16/2020 12:00:00 AM EDT [facility] ([facility], ) Name Value Range Interpretation Code Description Data Supporting Source(s) Document(s ) Creatinine 83.2 mg/dL Normal (applies to [facility] (S t , Urine non-numeric [facility]'s results) Medical, ) Protein,To 20.9 mg/dL Normal (applies to [facility] (S t [place],Urine non-numeric [facility]'s results) Medical, ) Protein/Cr 251 mg/g Above high normal [facility] (St eat Ratio creat [facility], ) ID Date Data Source [id number] 03/16/2020 12:00:00 AM EDT [facility] ([facility], ) Name Value Range Interpretation Description Data Sup porting Code Source(s) Document(s ) Iron 333 ug/dL Normal (applies to [facility] (St Bind.Cap.(TIBC non-numeric Nadia's ) results) Medical, ) UIBC 255 ug/dL Normal (applies to [facility] (St non-numeric Nadia's results) [facility], ) Iron 23 % Normal (applies to [facility] (St saturation non-numeric [facility]ia's [Mass results) Medical, ) Fraction] in Serum or Plasma Iron 78 ug/dL Normal (applies to [facility] (St [Mass/volume] non-numeric Nadia's in Serum or results) [facility], ) Plasma ID Date Data Source [id number] 03/16/2020 12:00:00 AM EDT [facility] ([facility], ) Name Value Range Interpretation Description Data Sup porting Code Source(s) Document(s ) WBC 0-5 Normal (applies [facility] (St to non-numeric Nadia's results) Medical, ) RBC None seen Normal (applies [facility] (St to non-numeric Nadia's results) Medical, ) Epithelial None seen Normal (applies [facility] (St Cells (non to non-numeric Nadia's renal) results) Medical, ) Casts [#/area] Present Abnormal (applies [facility] (St in Urine to non-numeric Nadia's sediment by results) Medical, ) Automated count Cast Type Hyaline Normal (applies [facility] (St casts to non-numeric Nadia's results) Medical, ) Crystal Type Calcium Normal (applies [facility] (St Oxalate to non-numeric Nadia's results) Medical, ) Crystals Present Abnormal (applies [facility] (St [#/area] in to non-numeric Nadia's Body fluid by results) Medical, ) Light microscopy Mucus Threads Present Normal (applies [facility] (St to non-numeric Nadia's results) Medical, PC) Bacteria None seen Normal (applies [facility] (St [Presence] in to non-numeric [facility]'s Prostatic results) Medical, PC) fluid by Light microscopy ID Date Data Source [id number] 03/16/2020 12:00:00 AM EDT [facility] ([facility]) Name Value Range Interpretation Description Data Sup porting Code Source(s) Document(s ) Specific gravity 1.022 Normal (applies [facility] (St of Pericardial to non-numeric Nadia's fluid by results) Medical, Refractometry PC) pH of Lower 5.5 Normal (applies [facility] (St respiratory to non-numeric Nadia's specimen results) Medical, PC) Appearance of Clear Normal (applies [facility] (St Abdomen to non-numeric Nadia's results) Medical, PC) Urine-Color Yellow Normal (applies [facility] (St to non-numeric Nadia's results) Medical, PC) WBC Esterase Negative Normal (applies [facility] (St to non-numeric Nadia's results) Medical, PC) Protein Trace Normal (applies [facility] (St [Mass/volume] in to non-numeric Nadia's Lower results) Medical, respiratory PC) specimen Ketones Negative Normal (applies [facility] (St [Presence] in to non-numeric Nadia's Blood by Tablet results) Medical, PC) Occult Blood Negative Normal (applies [facility] (St to non-numeric Nadia's results) Medical, PC) Glucose Abnormal [facility] (St [Mass/volume] in (applies to Nadia's Urine collected non-numeric Medical, for unspecified results) PC) duration Urobilinogen,Elizabet 0.2 mg/dL Normal (applies [facility] (St i-Qn to non-numeric Nadia's results) Medical, PC) Nitrite, Urine Negative Normal (applies [facility] (S t to non-numeric Nadia's results) Medical, PC) Bilirubin Negative Normal (applies [facility] (St [Presence] in to non-numeric Nadia's Peritoneal fluid results) Medical, PC) Microscopic Normal (applies [facility] (St Examination to non-numeric Nadia's results) Medical, PC) Microscopic See below: Normal (applies [facility] (St Examination to non-numeric Nadia's results) Medical, PC) ID Date Data Source [id number] 03/16/2020 12:00:00 AM EDT [facility] ([facility] Medical, PC) Name Value Range Interpretation Description Data Sup porting Code Source(s) Document(s ) Glucose 273 Above high [facility] (St [Mass/volume] in mg/dL normal Nadia's Urine collected for Medical, unspecified PC) duration Creatinine 2.10 Above high [facility] (St [Interpretation] in mg/dL normal Nadia's Urine Medical, ) Urea nitrogen 23 mg/dL Normal (applies [facility] (St [Mass/volume] in to non-numeric Nadia's Serum or Plasma results) Medical, ) eGFR If Africn Am 33 Below low normal MEDGE N (St mL/min/[address], ) eGFR If NonAfricn 28 Below low normal MEDGE N (St Am mL/min/[address], ) Sodium 137 Normal (applies [facility] (St [Moles/volume] in mmol/L to non-numeric Nadia's Serum or Plasma results) Medical, ) BUN/Creatinine 11 Normal (applies [facility] (S t Ratio to non-numeric Nadia's results) Medical, ) Chloride 97 Normal (applies [facility] (St [Moles/volume] in mmol/L to non-numeric Nadia's Serum or Plasma results) Medical, ) Carbon dioxide, 25 Normal (applies [facility] ( St total mmol/L to non-numeric Nadia's [Moles/volume] in results) Medical, Serum or Plasma PC) Potassium 4.6 Normal (applies [facility] (St [Mass/volume] in mmol/L to non-numeric Nadia's Blood results) Medical, ) Protein 7.6 g/dL Normal (applies [facility] (St [Mass/volume] in to non-numeric Nadia's Serum or Plasma results) Medical, ) Calcium 10.0 Normal (applies [facility] (St [Moles/volume] in mg/dL to non-numeric Nadia's Urine collected for results) Medical, unspecified PC) duration A/G Ratio 1.5 Normal (applies [facility] (St to non-numeric Nadia's results) Medical, ) Microalbumin 4.5 g/dL Normal (applies [facility] (St [Mass/time] in to non-numeric Nadia's Urine collected for results) Medical, unspecified PC) duration Globulin, Total 3.1 g/dL Normal (applies [facility] ( St to non-numeric Nadia's results) Medical, ) Bilirubin.total 0.5 Normal (applies [facility] ( St [Mass/volume] in mg/dL to non-numeric Nadia's Serum or Plasma results) [facility], ) Alkaline 49 IU/L Normal (applies [facility] (St phosphatase to non-numeric Nadia's [Enzymatic results) Medical, activity/volume] in ) Serum, Plasma or Blood Alanine 23 IU/L Normal (applies [facility] (St aminotransferase to non-numeric Nadia's [Enzymatic results) Medical, activity/volume] in ) Serum or Plasma Aspartate 24 IU/L Normal (applies [facility] (St aminotransferase to non-numeric Nadia's [Enzymatic results) Medical, activity/volume] in ) Serum or Plasma ID Date Data Source [id number] 03/16/2020 12:00:00 AM EDT [facility] (St [facility]ty [facility], ) Name Value Range Interpretation Description Data Sup porting Code Source(s) Document(s ) Leukocytes 7.8 Normal (applies [facility] (St [#/volume] in x10E3/uL to non-numeric Nadia's Blood by results) Medical, ) Automated count Erythrocytes 4.20 Normal (applies [facility] (St [#/volume] in x10E6/uL to non-numeric Nadia's Blood by results) [facility], ) Automated count Hemoglobin 13.5 Normal (applies [facility] (St [Mass/volume] in g/dL to non-numeric Nadia's Blood results) [facility], ) Hematocrit 40.3 % Normal (applies [facility] (St [Volume to non-numeric Nadia's Fraction] of results) [facility], ) Blood by Automated count MCHC 33.5 Normal (applies [facility] (St g/dL to non-numeric Nadia's results) Medical, ) MCH 32.1 pg Normal (applies [facility] (St to non-numeric Nadia's results) [facility], ) MCV 96 fL Normal (applies [facility] (St to non-numeric Nadia's results) [facility], ) RDW 11.8 % Normal (applies [facility] (St to non-numeric Nadia's results) [facility], ) Platelets 210 Normal (applies [facility] (St [#/area] in x10E3/uL to non-numeric Nadia's Blood by results) [facility], ) Microscopy high power field Neutrophils [#] 50 % Normal (applies [facility] ( St in Body fluid by to non-numeric Nadia's Manual count results) Medical, ) Lymphs 37 % Normal (applies [facility] (St to non-numeric Nadia's results) Medical, ) Monocytes 8 % Normal (applies [facility] (St [#/volume] in to non-numeric Nadia's Cord blood results) [facility], ) Eos 5 % Normal (applies [facility] (St to non-numeric Nadia's results) [facility], ) Basos 0 % Normal (applies [facility] (St to non-numeric Nadia's results) Medical, ) Monocytes(Absolu 0.6 Normal (applies [facility] (St te) x10E3/uL to non-numeric Nadia's results) [facility], ) Neutrophils 3.9 Normal (applies [facility] (St (Absolute) x10E3/uL to non-numeric Nadia's results) [facility], ) Lymphs 2.9 Normal (applies [facility] (St (Absolute) x10E3/uL to non-numeric Nadia's results) [facility], ) Eos (Absolute) 0.4 Normal (applies [facility] (S t x10E3/uL to non-numeric Nadia's results) [facility], ) Baso (Absolute) 0.0 Normal (applies [facility] ( St x10E3/uL to non-numeric Nadia's results) [facility], ) Immature 0 % Normal (applies [facility] (St Granulocytes to non-numeric Nadia's results) [facility], ) Immature Grans 0.0 Normal (applies [facility] (S t (Abs) x10E3/uL to non-numeric Nadia's results) [facility], ) ID Date Data Source [id number] 02/01/2020 02:18:00 PM EDT [facility] Name Value Range Interpretation Description Data Sup porting Code Source(s) Document(s ) SARS [facility] coronavirus 2 RNA This lab was ordered by [facility] and reported by [facility]. ID Date Data Source [id number] 01/29/2020 09:27:00 AM EDT MERRY ([facility] Medicine and Infectious Disease) Name Value Range Interpretation Description Data Sup porting Code Source(s) Document(s ) HIV 1 RNA <20 Above high HIV 1 RNA, QN MERRY [#/volume] Detected normal PCR ([facility] (viral load) in copies/mL n [facility] Serum or Plasma Medicine and by Probe and Infectious target Disease) amplification method HIV 1 RNA [Log <1.30 Above high HIV 1 RNA, QN MERRY #/volume] Detected normal PCR ([facility] (viral load) in log_copies n [facility] Plasma by Probe /mL Medicine and and target Infectious amplification Disease) method Note: HIV-1 RNA was detected be low 20 copies/mL. Viral nucleic acid detected below this level cannot be colt tified by the assay. The test was performed using Real Time Polym erase Chain Reaction. Reportable Range: 20 copies/mL to 10,000 ,000 copies/mL (1.30-7.00 Log copies/mL). ID Date Data Source [id number] 01/29/2020 09:27:00 AM EDT MERRY ([facility] Medicine and Infectious Disease) Name Value Range Interpretation Description Data Sup porting Code Source(s) Document(s ) CD3 cells/100 75 Percent Normal (applies % CD3 MERRY cells in Blood to non-numeric ([facility] results) n [facility] Disease) CD19 cells 260 Normal (applies ABSOLUTE CD19 MERRY [#/volume] in Cells/mcL to non-numeric CELLS ([facility] a Blood results) n [facility] and [facility] Disease) CD3-CD16+CD56+ 17 Percent Normal (applies % CD16+CD56+ [address] (Natural to non-numeric ([facility] killer) results) [facility] cells/100 Medicine and cells in Blood Infectious Disease) CD19 cells/100 7 Percent Normal (applies % CD19 MERRY cells in Blood to non-numeric ([facility] results) [facility] Medicine and Infectious Disease) CD3 cells 2734 Normal (applies ABSOLUTE CD3 MERRY [#/volume] in Cells/mcL to non-numeric CELLS ([facility] a Blood results) n [facility] Medicine and [facility] Disease) CD3+CD4+ (T4 0.22 Ratio Below low normal CD4/CD8 RATIO [address] helper) ([facility] cells/CD3+CD8+ n [facility] (T8 suppressor Medicine and cells) cells Infectious [# Ratio] in Disease) Blood Lymphocytes 3650 Normal (applies ABSOLUTE MERRY [#/volume] in Cells/mcL to non-numeric LYMPHOCYTES ([facility] Blood by results) n [facility] Automated Medicine and count Infectious Disease) Note: The Lymphocyte Subset ref erence ranges were implemented on April 08, 2016. CD3+CD4+ (T4 13 Percent Below low %CD4 MERRY helper) cells/100 normal ([facility] cells in Blood Medicine and Infectious Disease) CD3-CD16+CD56+ 630 Cells/mcL Normal ABSOLUTE MERRY (Natural killer) (applies to CD16+CD56+ ([facility] cells [#/volume] non-numeric CELLS Medicine an d in Blood results) Infectious Disease) CD3+CD8+ (T8 2217 Cells/mcL Above high ABSOLUTE CD8 MERRY suppressor cells) normal CELLS ([facility] cells [#/volume] Medicine and in Blood Infectious Disease) Cells.CD3+CD4+CD8+ 18 Cells/mcL Normal ABS MERRY (Double positive) (applies to CD3+CD4+CD8+ ([facility] [place] [#/volume] in non-numeric CELLS Medicine and Blood results) Infectious Disease) Cells.CD3+CD4+CD8+ 0 Percent Normal % CD3+CD4+CD8+ [place] A[place] (Double (applies to ([facility] positive)/100 non-numeric Medicine and cells in Blood results) Infectious Dise ase) CD3+CD4+ (T4 479 Cells/mcL Below low ABSOLUTE CD4 MERRY helper) cells normal CELLS ([facility] [#/volume] in Medicine and Blood Infectious Disease) CD3+CD8+ (T8 61 Percent Above high %CD8 MERRY suppressor cells) normal ([facility] [place] cells/100 cells in Medicine an d Blood Infectious Disease) % CD3+CD4-CD8- 0 Percent Normal % CD3+CD4-CD8- MERRY (applies to ([facility] non-numeric Medicine and results) Infectious Disease) ABS CD3+CD4-CD8- 11 Cells/mcL Normal ABS MERRY CELLS (applies to CD3+CD4-CD8- ([facility] non-numeric CELLS Medicine and results) Infectious Disease) % 6 Percent Normal % MERRY CD3+/(CD56+CD16+) (applies to CD3+/(CD56+CD16 ([facility] non-numeric +) Medicine and results) Infectious Disease) ABS 232 Cells/mcL Normal ABS MERRY CD3+/(CD56+CD16+) (applies to CD3+/(CD56+CD16 ([facility] non-numeric +) Medicine and results) Infectious Disease) ID Date Data Source [id number] 01/29/2020 09:27:00 AM EDT MERRY ([facility] Medicine and Infectious Disease) Name Value Range Interpretation Description Data Sup porting Code Source(s) Document(s ) Hemoglobin 7.7 Above high normal HEMOGLOBIN A1C [place] AY A1c/Hemoglobi %_of_tot ([place] n.total in al_Hgb [facility] Blood and Infectious Disease) Note: For someone without kno wn diabetes, a hemoglobin A1c value of 6.5% or greater indicates that they m ay have diabetes and this should be confirmed with a follow-up test. For someone with known diabetes, a value <7% indicates that their diabete s is well controlled and a value greater than or equal to 7% indicates subopti mal control. A1c targets should be individualized based on duration of diabetes, age, co-morbid conditions and other considerations. Currentl y, no consensus exists for use of hemoglobin A1c for diagnosis of diabetes f or children. ID Date Data Source [id number] 01/29/2020 09:27:00 AM EDT MERRY ([facility] Medicine and Infectious Disease) Name Value Range Interpretation Description Data Source(s ) Supporting Code Document(s ) Cell See Note Normal (applies to DIFFERENTIAL MERRY Fractions/ non-numeric ([facility]) [facility] Medicine al and Infectious [Interpret Disease) ation] in Blood Note: An instrument differentia l was performed. Leukocytes 7.9 Thousand/uL Normal (applies WBC [place] [#/volume] in to non-numeric ([facility] Blood by Automated results) Medicine an d count Infectious Disease) Hematocrit [Volume 39.4 % Normal (applies HEMATOCRIT GREE NWAY Fraction] of Blood to non-numeric ([facility] [place] by Automated count results) Medicine an d Infectious Disease) Monocytes/100 7.9 % Normal (applies MONOCYTES,% MERRY leukocytes in to non-numeric ([facility] Blood by Automated results) Medicine an d count Infectious Disease) Eosinophils/100 5.0 % Normal (applies EOSINOPHILS,% GREE NWAY leukocytes in to non-numeric ([facility] Blood by Automated results) Medicine an d count Infectious Disease) Basophils 47 cells/uL Normal (applies BASOPHILS,ABSO [place] Y [#/volume] in to non-numeric LUTE ([facility] Blood by Automated results) Medicine an d count Infectious Disease) Eosinophils 395 cells/uL Normal (applies EOSINOPHILS,AB GREE NWAY [#/volume] in to non-numeric SOLUTE ([facility] Blood by Automated results) Medicine an d count Infectious Disease) Basophils/100 0.6 % Normal (applies BASOPHILS,% MERRY leukocytes in to non-numeric ([facility] Blood by Automated results) Medicine an d count Infectious Disease) Hemoglobin 13.3 g/dL Normal (applies HEMOGLOBIN MERRY [Mass/volume] in to non-numeric ([facility] Blood results) Medicine and Infectious Disease) Lymphocytes 3239 cells/uL Normal (applies LYMPHOCYTES,AB GRE ENWAY [#/volume] in to non-numeric SOLUTE ([facility] Blood by Automated results) Medicine an d count Infectious Disease) Lymphocytes/100 41.0 % Normal (applies TOTAL MERRY leukocytes in to non-numeric LYMPHOCYTES,% ([facility] Blood by Automated results) Medicine an d count Infectious Disease) Monocytes 624 cells/uL Normal (applies MONOCYTES,ABSO GRE[place] AY [#/volume] in to non-numeric LUTE ([facility] Blood by Automated results) Medicine an d count Infectious Disease) Neutrophils/100 45.5 % Normal (applies TOTAL MERRY leukocytes in to non-numeric NEUTROPHILS,% ([facility] Blood by Automated results) Medicine an d count Infectious Disease) Platelets 186 Thousand/uL Normal (applies PLATELET COUNT GRE EN[place]AY [#/volume] in to non-numeric ([facility] Blood by Automated results) Medicine an d count Infectious Disease) Neutrophils 3595 cells/uL Normal (applies NEUTROPHILS,AB GRE ENWAY [#/volume] in to non-numeric SOLUTE ([facility] Blood by Automated results) Medicine an d count Infectious Disease) Platelet mean 10.4 fL Normal (applies MPV MERRY volume [Entitic to non-numeric ([facility] volume] in Blood results) Medicine and by Sadaf Infectious Disease) Erythrocyte mean 33.1 pg Above high MCH MERRY corpuscular normal ([facility] hemoglobin Medicine and [Entitic mass] by Infectious Automated count Disease) Erythrocyte mean 98.0 fL Normal (applies MCV [place] Y corpuscular volume to non-numeric ([facility] [place] [Entitic volume] results) Medicine and by Automated count Infectious Disease) Erythrocyte 12.4 % Normal (applies RDW MERRY distribution width to non-numeric ([facility] [place] [Ratio] by results) Medicine and Automated count Infectious Disease) Erythrocyte mean 33.8 g/dL Normal (applies MCHC [place] Y corpuscular to non-numeric ([facility] hemoglobin results) Medicine and concentration Infectious [Mass/volume] by Disease) Automated count Erythrocytes 4.02 Million/uL Below low normal RBC GREE NWAY [#/volume] in ([facility] Blood by Automated Medicine an d count Infectious Disease) ID Date Data Source [id number] 01/29/2020 09:27:00 AM EDT MERRY [facility] Name Value Range Interpretation Description Data Sup porting Code Source(s) Document(s ) Alanine 19 U/L Normal (applies ALT MERRY aminotransferase to non-numeric ([facility] [Enzymatic results) n [facility] activity/volume] Medicine and in Serum or Plasma Infectious Disease) Albumin 4.0 Normal (applies ALBUMIN MERRY [Mass/volume] in g/dL to non-numeric ([facility] Serum or Plasma results) [facility] Medicine and Infectious Disease) Aspartate 20 U/L Normal (applies AST MERRY aminotransferase to non-numeric ([facility] [Enzymatic results) n [facility] activity/volume] Medicine and in Serum or Plasma Infectious Disease) Albumin/Globulin 1.3 Normal (applies ALBUMIN/GLOBU GRE ENWAY [Mass Ratio] in (calc) to non-numeric KURTIS RATIO ([facility] Serum or Plasma results) [facility] Medicine and Infectious Disease) Carbon dioxide, 30 Normal (applies CARBON MERRY total mmol/L to non-numeric DIOXIDE ([facility] [Moles/volume] in results) [facility] Serum or Plasma Medicine and Infectious Disease) Calcium 10.0 Normal (applies CALCIUM MERRY [Mass/volume] in mg/dL to non-numeric ([facility] Serum or Plasma results) [facility] Medicine and Infectious Disease) Bilirubin.total 0.4 Normal (applies BILIRUBIN,TOT GREE NWAY [Mass/volume] in mg/dL to non-numeric AL ([facility] Serum or Plasma results) [facility] Medicine and Infectious Disease) Chloride 100 Normal (applies CHLORIDE MERRY [Moles/volume] in mmol/L to non-numeric ([facility] Serum or Plasma results) [facility] Medicine and Infectious Disease) Glomerular 33 Below low normal EGFR NON AFR MERRY filtration mL/min/ [place]IAN ([facility] rate/1.73 sq 1.73m2 n [facility] M.predicted Medicine and [Volume Rate/Area] Infectious in Serum or Plasma Disease) by Creatinine-based formula (MDRD) Globulin 3.2 Normal (applies GLOBULIN MERRY [Mass/volume] in g/dL_(c to non-numeric ([facility] Serum by alc) results) n [facility] calculation Medicine and Infectious Disease) Creatinine 1.87 Above high CREATININE MERRY [Mass/volume] in mg/dL normal ([facility] Serum or Plasma [facility] Medicine and Infectious Disease) Note: The upper reference limit for Creatinine is approximately 13% higher for people identified as - Eritre[place]. Sodium 139 mmol/L Normal (applies SODIUM MERRY [Moles/volume] in to non-numeric ([facility] Serum or Plasma results) Medicine and Infectious Disease) Protein 7.2 g/dL Normal (applies PROTEIN, TOTAL MERRY [Mass/volume] in to non-numeric ([facility] Serum or Plasma results) Medicine and Infectious Disease) Glomerular 38 Below low normal EGFR HILLIARD filtration rate/1.73 mL/min/1.73m IT[place]IAN ([facility] [place] sq M predicted among 2 Medicine and blacks [Volume Infectious Rate/Area] in Serum Disease) or Plasma by Creatinine-based formula (MDRD) Potassium 4.4 mmol/L Normal (applies POTASSIUM MERRY [Moles/volume] in to non-numeric ([facility] Serum or Plasma results) Medicine and Infectious Disease) Urea 12 (calc) Normal (applies BUN/CREATININE MERRY nitrogen/Creatinine to non-numeric RATIO ([place] [Mass Ratio] in results) Medicine and Serum or Plasma Infectious Disease) Fasting glucose 205 mg/dL Above high normal GLUCOSE,FASTIN G REENWAY [Mass/volume] in G ([facility] Serum or Plasma Medicine and Infectious Disease) Note: For someone without know n diabetes, a glucose value >125 mg/dL indicates that they may have diabe odalis and this should be confirmed with a follow-up test. Urea nitrogen 23 mg/dL Normal (applies UREA NITROGEN GREEN[place] AY [Mass/volume] in to non-numeric ([facility] Serum or Plasma results) Medicine and Infectious Disease) Alkaline 63 U/L Normal (applies ALKALINE MERRY phosphatase to non-numeric PHOSPHATASE ([facility] [place] [Enzymatic results) Medicine and activity/volume] in Infectious Disease) Serum or Plasma ID Date Data Source [id number] 12/16/2019 09:00:00 AM EDT [facility] Name Value Range Interpretation Description Data Sup porting Code Source(s) Document(s ) SARS [facility] CORONAVIRUS 2 RNA This lab was ordered by [facility] and reported by [facility]. ID Date Data Source [id number] 12/13/2019 04:00:00 PM EDT [facility] Name Value Range Interpretation Description Data Sup porting Code Source(s) Document(s ) SARS [facility] CORONAVIRUS 2 RNA This lab was ordered by [facility] and reported by [facility]. ID Date Data Source [id number] 11/22/2019 04:07:00 PM EDT MERRY ([facility] Medicine and Infectious Disease) Name Value Range Interpretation Description Data Sup porting Code Source(s) Document(s ) HIV 1 RNA 38 Above high normal HIV 1 RNA, QN MERRY [#/volume] copies/m PCR ([facility] (viral load) in L n [facility] Serum or Plasma Medicine and by Probe and Infectious target Disease) amplification method HIV 1 RNA [Log 1.58 Above high normal HIV 1 RNA, QN [facility] EN[facility]AY #/volume] (viral log_copi PCR ([facility] load) in Plasma es/mL n [place] by Probe and Medicine and target Infectious amplification Disease) method Note: The test was performed u sing Real Time Polymerase Chain Reaction. Reportable Range: 20 c opies/mL to 10,000,000 copies/mL (1.30-7.00 Log copies/mL). ID Date Data Source [id number] 11/22/2019 04:07:00 PM EDT MERRY ([facility] Medicine and Infectious Disease) Name Value Range Interpretation Description Data Sup porting Code Source(s) Document(s ) Hemoglobin 6.0 Above high normal HEMOGLOBIN A1C GREEN AY A1c/Hemoglobi %_of_tot ([facility] n.total in al_Hgb [facility] Blood and Infectious Disease) Note: For someone without kno wn diabetes, a hemoglobin A1c value between 5.7% and 6.4% is consistent with prediabetes and should be confirmed with a follow-up test. For kg eone with known diabetes, a value <7% indicates that their diabetes is well controlled. A1c targets should be individualized based on duration of di abetes, age, co-morbid conditions and other considerations. Th is assay result is consistent with an increased risk of diabetes. Currently, no consensus exists regarding use of hemoglobin A1c for diagno sis of diabetes in children. ID Date Data Source [id number] 10/31/2019 12:00:00 AM EDT [facility] Name Value Range Interpretation Code Description Data Lo rce(s) Supporting Document(s ) 2019-nCoV [facility] RNA XXX JACQUI+probe- Imp This lab was ordered by [facility] and reported by [employer] ID Date Data Source [id number] 09/27/2019 12:30:00 PM EDT [facility] Name Value Range Interpretation Code Description Data Lo rce(s) Supporting Document(s ) RESULT [facility] This lab was ordered by [facility] and reported by [facility]. ID Date Data Source [id number] 09/08/2019 08:42:00 AM EST MERRY ([facility] [place] Medicine and Infectious Disease) Name Value Range Interpretation Description Data Sup porting Code Source(s) Document(s ) HIV 1 RNA 26 Above high normal HIV 1 RNA, QN MERRY [#/volume] copies/m PCR ([facility] (viral load) in L [facility] Serum or Plasma Medicine and by Probe and Infectious target Disease) amplification method HIV 1 RNA [Log 1.41 Above high normal HIV 1 RNA, QN GRE EN[place]AY #/volume] (viral log_copi PCR ([facility] load) in Plasma es/mL [facility] by Probe and Medicine and target Infectious amplification Disease) method Note: The test was performed u sing Real Time Polymerase Chain Reaction. Reportable Range: 20 c opies/mL to 10,000,000 copies/mL (1.30-7.00 Log copies/mL). ID Date Data Source [id number] 09/08/2019 08:42:00 AM EST MERRY ([facility] Medicine and Infectious Disease) Name Value Range Interpretation Description Data Sup porting Code Source(s) Document(s ) CD3+CD4+ (T4 15 Percent Below low normal % CD4 MERRY helper) ([facility] cells/100 [facility] cells in Blood Medicine and Infectious Disease) Lymphocytes 2626 Normal (applies ABSOLUTE MERRY [#/volume] in Cells/mcL to non-numeric LYMPHOCYTES ([facility] lupe Blood by results) [facility] Automated Medicine and count Infectious Disease) CD3+CD4+ (T4 402 Below low normal ABSOLUTE CD4 GRE[place] Y helper) cells Cells/mcL CELLS ([facility] [#/volume] in [facility] Blood Medicine and Infectious Disease) CD3+CD8+ (T8 1582 Above high normal ABSOLUTE CD8 GREENW AY suppressor Cells/mcL CELLS ([facility] cells) cells n [facility] [#/volume] in Medicine and Blood Infectious Disease) CD3+CD8+ (T8 60 Percent Above high normal % CD8 MERRY suppressor ([facility] cells) n [facility] cells/100 Medicine and cells in Blood Infectious Disease) CD3+CD4+ (T4 0.25 Ratio Below low normal CD4/CD8 R[address] helper) ([facility] cells/CD3+CD8+ n [facility] (T8 suppressor Medicine and cells) cells Infectious [# Ratio] in Disease) Blood ID Date Data Source [id number] 09/08/2019 08:42:00 AM GCD Systeme ([facility] Medicine and Infectious Disease) Name Value Range Interpretation Description Data Sup porting Code Source(s) Document(s ) Hemoglobin 6.1 Above high normal HEMOGLOBIN A1C GREENW AY A1c/Hemoglobi %_of_tot ([facility] n.total in al_[facility] Medicine Blood and Infectious Disease) Note: For someone without kno wn diabetes, a hemoglobin A1c value between 5.7% and 6.4% is consistent with prediabetes and should be confirmed with a follow-up test. For kg eone with known diabetes, a value <7% indicates that their diabetes is well controlled. A1c targets should be individualized based on duration of di abetes, age, co-morbid conditions and other considerations. Th is assay result is consistent with an increased risk of diabetes. Currently, no consensus exists regarding use of hemoglobin A1c for diagno sis of diabetes in children. ID Date Data Source [id number] 06/10/2019 08:44:00 AM GCD Systeme ([facility] Medicine and Infectious Disease) Name Value Range Interpretation Description Data Sup porting Code Source(s) Document(s ) HIV 1 RNA 31 Above high normal HIV 1 RNA, QN MERRY [#/volume] copies/m PCR ([facility] (viral load) in [facility] Serum or Plasma Medicine and by Probe and Infectious target Disease) amplification method HIV 1 RNA [Log 1.49 Above high normal HIV 1 RNA, QN GRE ENWAY #/volume] (viral log_copi PCR ([facility] load) in Plasma es/mL [facility] by Probe and Medicine and target Infectious amplification Disease) method Note: The test was performed u sing Real Time Polymerase Chain Reaction. Reportable Range: 20 c opies/mL to 10,000,000 copies/mL (1.30-7.00 Log copies/mL). Duplicate report will be sent to: CHUCHO ZUNIGA N [address] [place] [id number] ID Date Data Source [id number] 06/10/2019 08:44:00 AM EST MERRY ([facility] Medicine and Infectious Disease) Name Value Range Interpretation Description Data Sup porting Code Source(s) Document(s ) CD3+CD4+ (T4 432 Below low normal ABSOLUTE CD4 GRE[place] Y helper) cells Cells/mcL CELLS ([facility] [#/volume] in [facility] Blood Medicine and Infectious Disease) CD3+CD4+ (T4 15 Percent Below low normal % CD4 MERRY helper) ([facility] cells/100 [facility] cells in Blood Medicine and Infectious Disease) CD3+CD8+ (T8 60 Percent Above high normal % CD8 MERRY suppressor ([facility] cells) [facility] cells/100 Medicine and cells in Blood Infectious Disease) CD3+CD4+ (T4 0.25 Ratio Below low normal CD4/CD8 RATIO [address] helper) ([facility] cells/CD3+CD8+ n [facility] (T8 suppressor Medicine and cells) cells Infectious [# Ratio] in Disease) Blood Lymphocytes 2912 Normal (applies ABSOLUTE MERRY [#/volume] in Cells/mcL to non-numeric LYMPHOCYTES ([facility] Blood by results) [facility] Automated Medicine and count Infectious Disease) CD3+CD8+ (T8 1751 Above high normal ABSOLUTE CD8 GREENW AY suppressor Cells/mcL CELLS ([facility] cells) cells [facility] [#/volume] in Medicine and Blood Infectious Disease) ID Date Data Source [id number] 06/10/2019 08:44:00 AM EST MERRY ([facility] Medicine and Infectious Disease) Name Value Range Interpretation Description Data Sup porting Code Source(s) Document(s ) Hemoglobin 6.7 Above high normal HEMOGLOBIN A1C GREENW AY A1c/Hemoglobi %_of_tot ([facility] n.total in al_Hgb [facility] Medicine Blood and Infectious Disease) Note: For someone without kno wn diabetes, a hemoglobin A1c value of 6.5% or greater indicates that they m ay have diabetes and this should be confirmed with a follow-up test. For someone with known diabetes, a value <7% indicates that their diabete s is well controlled and a value greater than or equal to 7% indicates subopti mal control. A1c targets should be individualized based on duration of diabetes, age, co-morbid conditions and other considerations. Currentl y, no consensus exists for use of hemoglobin A1c for diagnosis of diabetes f or children. ID Date Data Source [id number] 06/10/2019 08:44:00 AM EST MERRY ([facility] Medicine and Infectious Disease) Name Value Range Interpretation Description Data Source(s ) Supporting Code Document(s ) Cell See Note Normal (applies to DIFFERENTIAL MERRY Fractions/ non-numeric ([facility]) [facility] Medicine al and Infectious [Interpret Disease) ation] in Blood Note: An instrument differentia l was performed. Leukocytes 7.7 Thousand/uL Normal (applies WBC GREEN[place] Y [#/volume] in to non-numeric ([facility] Blood by Automated results) Medicine an d count Infectious Disease) Hematocrit [Volume 40.2 % Normal (applies HEMATOCRIT GREE NWAY Fraction] of Blood to non-numeric ([facility] [place] by Automated count results) Medicine an d Infectious Disease) Monocytes/100 9.2 % Normal (applies MONOCYTES,% MERRY leukocytes in to non-numeric ([facility] Blood by Automated results) Medicine an d count Infectious Disease) Eosinophils 547 cells/uL Above high EOSINOPHILS,AB MERRY [#/volume] in normal SOLUTE ([facility] Blood by Automated Medicine an d count Infectious Disease) Basophils/100 0.5 % Normal (applies BASOPHILS,% MERRY leukocytes in to non-numeric ([facility] Blood by Automated results) Medicine an d count Infectious Disease) Basophils 39 cells/uL Normal (applies BASOPHILS,ABSO GREENWA Y [#/volume] in to non-numeric LUTE ([facility] Blood by Automated results) Medicine an d count Infectious Disease) Lymphocytes 3088 cells/uL Normal (applies LYMPHOCYTES,AB GRE ENWAY [#/volume] in to non-numeric SOLUTE ([facility] Blood by Automated results) Medicine an d count Infectious Disease) Eosinophils/100 7.1 % Normal (applies EOSINOPHILS,% GREE NWAY leukocytes in to non-numeric ([facility] Blood by Automated results) Medicine an d count Infectious Disease) Lymphocytes/100 40.1 % Normal (applies TOTAL MERRY leukocytes in to non-numeric LYMPHOCYTES,% ([facility] Blood by Automated results) Medicine an d count Infectious Disease) Hemoglobin 13.6 g/dL Normal (applies HEMOGLOBIN MERRY [Mass/volume] in to non-numeric ([facility] Blood results) Medicine and Infectious Disease) Neutrophils/100 43.1 % Normal (applies TOTAL MERRY leukocytes in to non-numeric NEUTROPHILS,% ([facility] Blood by Automated results) Medicine an d count Infectious Disease) Monocytes 708 cells/uL Normal (applies MONOCYTES,ABSO GREENW AY [#/volume] in to non-numeric LUTE ([facility] Blood by Automated results) Medicine an d count Infectious Disease) Neutrophils 3319 cells/uL Normal (applies NEUTROPHILS,AB GRE ENWAY [#/volume] in to non-numeric SOLUTE ([facility] Blood by Automated results) Medicine an d count Infectious Disease) Platelets 271 Thousand/uL Normal (applies PLATELET COUNT GRE ENWAY [#/volume] in to non-numeric ([facility] Blood by Automated results) Medicine an d count Infectious Disease) Platelet mean 10.0 fL Normal (applies MPV MERRY volume [Entitic to non-numeric ([facility] volume] in Blood results) Medicine and by Sadaf Infectious Disease) Erythrocyte mean 32.3 pg Normal (applies MCH GRE[place] Y corpuscular to non-numeric ([facility] hemoglobin results) Medicine and [Entitic mass] by Infectious Automated count Disease) Erythrocyte mean 33.8 g/dL Normal (applies MCHC GREENWA Y corpuscular to non-numeric ([facility] hemoglobin results) Medicine and concentration Infectious [Mass/volume] by Disease) Automated count Erythrocyte mean 95.5 fL Normal (applies MCV GREENWA Y corpuscular volume to non-numeric ([facility] [place] [Entitic volume] results) Medicine and by Automated count Infectious Disease) Erythrocytes 4.21 Million/uL Normal (applies RBC GRE[address] WAY [#/volume] in to non-numeric ([facility] Blood by Automated results) Medicine an d count Infectious Disease) Erythrocyte 13.3 % Normal (applies RDW MERRY distribution width to non-numeric ([facility] [place] [Ratio] by results) Medicine and Automated count Infectious Disease) ID Date Data Source [id number] 06/10/2019 08:44:00 AM EST MERRY ([facility] Medicine and [facility] Disease) Name Value Range Interpretation Description Data Sup porting Code Source(s) Document(s ) Cholesterol 186 Normal (applies CHOLESTEROL,TOT GREENW AY [Mass/volume] mg/dL to non-numeric AL ([facility] a in Serum or results) n [facility] Plasma Medicine and Infectious Disease) Cholesterol in 37 mg/dL Below low normal HDL CHOLESTEROL GR EENWAY HDL ([facility] [Mass/volume] n [place] in Serum or Medicine and Plasma Infectious Disease) Triglyceride 226 Above high TRIGLYCERIDES MERRY [Mass/volume] mg/dL normal ([facility] in Serum or n [facility] Plasma Medicine and Infectious Disease) Note: If a non-fasting specim en was collected, consider repeat triglyceride testing on a fasting specim en if clinically indicated. Sana et al. J of Clin. Lipidol. 2015 ;9:129-169. Cholesterol non HDL 149 mg/dL_(calc) Above high NON HDL GR EENWAY [Mass/volume] in normal CHOLESTEROL ([facility] an [facility] Serum or Plasma Medicine and Infectious Disease) Note: For patients with diabe odalis plus 1 major ASCVD risk factor, treating to a non-HDL-C goal of <100 mg/ dL (LDL-C of <70 mg/dL) is considered a therapeutic option. Cholesterol.total/Cholesterol in 5.0 Above CHOLEST KYRIE/HDL MERRY HDL [Mass Ratio] in Serum or calc high RATIO ( [facility] Plasma normal [facility] Medicine and Infectious Disease) Cholesterol in LDL [Mass/volume] 115 Above LDL-CHO LESTEROL MERRY in Serum or Plasma by mg/dL_( high ([facility] litan calculation calc) normal [facility] Medicine and Infectious Disease) Note: LDL-C is now calculated using the Violeta calculation, which is a validated novel method provi ding better accuracy than the Friedewald equation in the estimation of LDL-C. Werner SS et al. SYLVIA. 2013; 310(19): 2391-1176 For additio nal information, please refer to http://education.[employer]/fa q/UNT439 (This link is being provided for informational/educational pu rposes only.) Desirable range < 100 mg/dL for primary prevention; <70 mg/dL for patients with CHD or diabetic patients with > or = 2 CHD risk factors. ID Date Data Source [id number] 06/10/2019 08:44:00 AM EST MERRY ([facility] and [facility] Disease) Name Value Range Interpretation Description Data Sup porting Code Source(s) Document(s ) Alanine 17 U/L Normal (applies ALT MERRY aminotransferase to non-numeric ([facility] [Enzymatic results) n [facility] activity/volume] Medicine and in Serum or Plasma Infectious Disease) Albumin 4.0 Normal (applies ALBUMIN MERRY [Mass/volume] in g/dL to non-numeric ([facility] Serum or Plasma results) n [facility] Medicine and Infectious Disease) Aspartate 21 U/L Normal (applies AST MERRY aminotransferase to non-numeric ([facility] [Enzymatic results) n [facility] activity/volume] Medicine and in Serum or Plasma Infectious Disease) Albumin/Globulin 1.2 Normal (applies ALBUMIN/GLOBU GRE ENWAY [Mass Ratio] in (calc) to non-numeric KURTIS RATIO ([facility] Serum or Plasma results) n [facility] Medicine and Infectious Disease) Calcium 9.8 Normal (applies CALCIUM MERRY [Mass/volume] in mg/dL to non-numeric ([facility] Serum or Plasma results) [facility] Medicine and Infectious Disease) Bilirubin.total 0.5 Normal (applies BILIRUBIN,TOT GREE NWAY [Mass/volume] in mg/dL to non-numeric AL ([facility] isabel Serum or Plasma results) n [facility] Medicine and Infectious Disease) Carbon dioxide, 30 Normal (applies CARBON MERRY total mmol/L to non-numeric DIOXIDE ([facility] [Moles/volume] in results) [facility] Serum or Plasma Medicine and Infectious Disease) Chloride 103 Normal (applies CHLORIDE MERRY [Moles/volume] in mmol/L to non-numeric ([facility] Serum or Plasma results) [facility] Medicine and Infectious Disease) Creatinine 1.72 Above high CREATININE MERRY [Mass/volume] in mg/dL normal ([facility] Serum or Plasma n [facility] Medicine and Infectious Disease) Note: The upper reference limit for Creatinine is approximately 13% higher for people identified as - Eritre[place]. Globulin 3.4 g/dL_(calc) Normal (applies GLOBULIN MERRY [Mass/volume] in to non-numeric ([facility] Serum by results) Medicine and calculation Infectious Disease) Potassium 4.4 mmol/L Normal (applies POTASSIUM MERRY [Moles/volume] in to non-numeric ([facility] Serum or Plasma results) Medicine and Infectious Disease) Glomerular 36 mL/min/1.73m2 Below low EGFR NON AFR MERRY filtration normal ITALIAN ([facility] rate/1.73 sq Medicine and M.predicted Infectious [Volume Rate/Area] Disease) in Serum or Plasma by Creatinine-based formula (MDRD) Protein 7.4 g/dL Normal (applies PROTEIN, TOTAL MERRY [Mass/volume] in to non-numeric ([facility] Serum or Plasma results) Medicine and Infectious Disease) Glomerular 42 mL/min/1.73m2 Below low EGFR MERRY filtration normal ITALIAN ([facility] rate/1.73 sq M Medicine and predicted among Infectious blacks [Volume Disease) Rate/Area] in Serum or Plasma by Creatinine-based formula (MDRD) Sodium 141 mmol/L Normal (applies SODIUM MERRY [Moles/volume] in to non-numeric ([facility] results) Medicine and Infectious Disease) Urea 12 (calc) Normal (applies BUN/CREATININE MERRY nitrogen/Creatinin to non-numeric RATIO ([facility] [place] e [Mass Ratio] in results) Medicine and Serum or Plasma Infectious Disease) Alkaline 33 U/L Below low ALKALINE MERRY phosphatase normal PHOSPHATASE ([facility] [place] [Enzymatic Medicine and activity/volume] Infectious in Serum or Plasma Disease) Urea nitrogen 21 mg/dL Normal (applies UREA NITROGEN GREENW AY [Mass/volume] in to non-numeric ([facility] [place] Serum or Plasma results) Medicine and Infectious Disease) Fasting glucose 69 mg/dL Normal (applies GLUCOSE,FASTING GR EENWAY [Mass/volume] in to non-numeric ([facility] Serum or Plasma results) Medicine and Infectious Disease) Procedure Social History Code Duration Value Status Description Data Source(s ) Smoking 03/28/2020 denies EtOH, completed denies EtOH, MEDGEN ([employer] 12:00:00 AM EDT tobacco or tobacco or illicit NIKKI Razo) illicit drug use drug use 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 Smoking 03/28/2020 Unknown if ever completed Unknown if ever MEDG EN ([employer] 12:00:00 AM EDT smoked smoked Medical, PC) Smoking 03/24/2020 denies EtOH, completed denies EtOH, MEDGEN ([employer] 12:00:00 AM EDT tobacco or tobacco or illicit M edical, PC) 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 Smoking 03/24/2020 Unknown if ever completed Unknown if ever MEDG EN ([facility] 12:00:00 AM EDT smoked smoked Medical, PC) Smoking 03/14/2020 denies EtOH, completed denies EtOH, MEDGEN ([facility] 12:00:00 AM EDT tobacco or tobacco or illicit M edical, PC) 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 Medicine and Infectious Disease) Smoking 12/27/2019 Ex-smoker completed Ex-smoker MERRY 12:00:00 PM EDT (finding) (finding) ([facility] Medicine and Infectious Disease) Smoking 11/22/2019 Ex-smoker completed Ex-smoker MERRY 02:30:00 PM EDT (finding) (finding) ([facility] Medicine and Infectious Disease) Smoking 09/27/2019 Denies Ever completed Denies Ever Smoked [facility]р 06:23:00 PM EDT Smoked Medical C enter Smoking 09/27/2019 Denies Ever completed Denies Ever Smoked [facility] 11:48:00 AM EDT Smoked Medical C enter Smoking 09/14/2019 Ex-smoker completed Ex-smoker MERRY 04:00:00 PM EDT (finding) (finding) ([facility] Medicine and Infectious Disease) Smoking 02/22/2019 Ex-smoker completed Ex-smoker MERRY 12:15:00 PM EDT (finding) (finding) ([facility] Medicine and Infectious Disease) Smoking 12/14/2018 Ex-smoker completed Ex-smoker MERRY 11:00:00 AM EDT (finding) (finding) ([facility] Medicine and Infectious Disease) Smoking Unknown if ever completed Unknown if ever AMISH LIMON smoked smoked ([facility] Medicine and Infectious Disease) Vital Signs ID Date Data Source UNK Name Value Range Interpretation Code Description Data Source(s) Heart rate 78 /min 78 /min MEDGEN ([facility]) Respiratory rate 14 /min 14 /min MEDGEN ( [facility]) Body mass index 21 kg/m2 21 kg/m2 MEDGEN ([facility]) Diastolic blood 60 mm[Hg] 60 mm[Hg] MEDGEN (S t pressure [facility]) Systolic blood 100 mm[Hg] 100 mm[Hg] MEDGEN ([facility]) Body weight 138 lb 138 lb MEDGEN ([facility]) Body height 68 in 68 in MEDGEN ([facility]) Heart rate 78 /min 78 /min MEDGEN ([facility]) Respiratory rate 14 /min 14 /min MEDGEN ( [facility]) Body mass index 21 kg/m2 21 kg/m2 MEDGEN (S t (BMI) [Ratio] [facility], ) Diastolic blood 60 mm[Hg] 60 mm[Hg] MEDGEN (S t pressure [facility]) Systolic blood 100 mm[Hg] 100 mm[Hg] MEDGEN ([facility]) Body weight 138 lb 138 lb MEDGEN ([facility]) Body height 68 in 68 in MEDGEN ([facility]) Heart rate 78 /min 78 /min MEDGEN ([facility]) Respiratory rate 14 /min 14 /min MEDGEN ( [facility]) Body mass index 21 kg/m2 21 kg/m2 MEDGEN (S t (BMI) [Ratio] [facility]) Diastolic blood 60 mm[Hg] 60 mm[Hg] MEDGEN (S t pressure [facility]) Systolic blood 100 mm[Hg] 100 mm[Hg] MEDGEN ([facility]) Body weight 138 lb 138 lb MEDGEN ([facility]) Body height 68 in [facility] Body surface area 1.77 m2 1.77 m2 GREENWA Y Derived from ([facility] Medicine an d Infectious Disease) Body mass index 23.0 kg/m2 23.0 kg/m2 MERRY (BMI) [Ratio] ([facility] an [facility] Medicine an d Infectious Disease) Body weight 147 [lb_av] 147 [lb_av] MERRY ([facility] Medicine an d Infectious Disease) Body height 67 [in_i] 67 [in_i] MERRY ([facility] an d Infectious Disease) Respiratory rate 18 /min 18 /min MERRY ([facility] an d Infectious Disease) Heart rate 68 /min 68 /min MERRY ([facility] an d Infectious Disease) Diastolic blood 80 mm[Hg] 80 mm[Hg] MERRY pressure ([facility] an d Infectious Disease) Systolic blood 122 mm[Hg] 122 mm[Hg] HILLIARD pressure ([facility] an d Infectious Disease) Body weight 68.433776 68.157763 kg [facility] Measured kg Medical Center Body temperature 36.899923 36.902375 [facility] Respiratory rate 18 /min 18 /min [facility] Oxygen saturation 98 % 98 % [facility] osephs in Arterial blood [facility] Center by Pulse oximetry Heart rate 73 /min 73 /min [facility] Body height 175.104047 175.746154 cm [facility] Center Diastolic blood 72 mm[Hg] 72 mm[Hg] [facility] pressure [facility] Center Systolic blood 143 mm[Hg] 143 mm[Hg] [facility] pressure [facility] Center Body mass index 22.1 kg/m2 22.1 kg/m2 [facility] (BMI) [Ratio] Medical [facility] Heart rate 73 /min 73 /min MEDGEN ([facility] , ) Inhaled oxygen 95 % 95 % MEDGEN ([facility], ) Body weight 150 lb 150 lb MEDGEN ([facility] , ) Heart rate 73 /min 73 /min MEDGEN ([facility]) Inhaled oxygen 95 % 95 % MEDGEN ([facility]) Body weight 150 lb 150 lb MEDGEN ([facility]) Heart rate 73 /min 73 /min MEDGEN ([facility]) Inhaled oxygen 95 % 95 % MEDGEN ([facility], ) Body weight 150 lb 150 lb MEDGEN ([facility] ) Body height 67 [in_us] 67 [in_us] MERRY ([facility] an d Infectious Disease) Respiratory rate 18 /min 18 /min MERRY ([facility] [place] [facility] an d Infectious Disease) Heart rate 68 /min 68 /min MERRY ([facility] an d Infectious Disease) Diastolic blood 60 mm[Hg] 60 mm[Hg] MERRY pressure ([facility] an d Infectious Disease) Systolic blood 120 mm[Hg] 120 mm[Hg] HILLIARD pressure ([facility] an d Infectious Disease) Heart rate 80 /min 80 /min MEDGEN ([facility] , ) Inhaled oxygen 93 % 93 % MEDGEN ([facility], ) Body mass index 24.2 kg/m2 24.2 kg/m2 MEDGEN (S t (BMI) [Ratio] [facility] [place] Diastolic blood 60 mm[Hg] 60 mm[Hg] MEDGEN (S t pressure [facility]) Systolic blood 120 mm[Hg] 120 mm[Hg] MEDGEN ([facility] , ) Body weight 159 lb 159 lb MEDGEN ([facility]) Body height 68 in 68 in MEDGEN ([facility]) Heart rate 80 /min 80 /min MEDGEN ([facility] , ) Inhaled oxygen 93 % 93 % MEDGEN ([facility], ) Body mass index 24.2 kg/m2 24.2 kg/m2 MEDGEN (S t (BMI) [Ratio] [facility], ) Diastolic blood 60 mm[Hg] 60 mm[Hg] MEDGEN (S t pressure [facility] , ) Systolic blood 120 mm[Hg] 120 mm[Hg] MEDGEN ([facility] , ) Body weight 159 lb 159 lb MEDGEN ([facility]) Body height 68 in 68 in MEDGEN ([facility]) Heart rate 80 /min 80 /min MEDGEN ([facility]) Inhaled oxygen 93 % 93 % MEDGEN ([facility], ) Body mass index 24.2 kg/m2 24.2 kg/m2 MEDGEN (S t (BMI) [Ratio] [facility], ) Diastolic blood 60 mm[Hg] 60 mm[Hg] MEDGEN (S t pressure [facility] [place] [facility]) Systolic blood 120 mm[Hg] 120 mm[Hg] MEDGEN ([facility] , ) Body weight 159 lb 159 lb MEDGEN ([facility]) Body height 68 in 68 in MEDGEN ([facility]) Heart rate 57 /min 57 /min MEDGEN ([facility]) Respiratory rate 14 /min 14 /min MEDGEN ( [facility]) Inhaled oxygen 94 % 94 % MEDGEN ([facility], ) Body mass index 23.4 kg/m2 23.4 kg/m2 MEDGEN (S t (BMI) [Ratio[place] [facility] [place] Diastolic blood 60 mm[Hg] 60 mm[Hg] MEDGEN (S t pressure [facility]) Systolic blood 130 mm[Hg] 130 mm[Hg] MEDGEN ([facility] [place]) Body weight 154 lb 154 lb MEDGEN ([facility]) Body height 68 in 68 in MEDGEN ([facility]) Heart rate 57 /min 57 /min MEDGEN ([facility]) Respiratory rate 14 /min 14 /min MEDGEN ( [facility]) Inhaled oxygen 94 % 94 % MEDGEN ([facility], ) Body mass index 23.4 kg/m2 23.4 kg/m2 MEDGEN (S t (BMI) [Ratio[place] [facility] [place] Diastolic blood 60 mm[Hg] 60 mm[Hg] MEDGEN (S t pressure [facility] , ) Systolic blood 130 mm[Hg] 130 mm[Hg] MEDGEN ([facility]) Body weight 154 lb 154 lb MEDGEN ([facility]) Body height 68 in 68 in MEDGEN ([facility]) Heart rate 57 /min 57 /min MEDGEN ([facility]) Respiratory rate 14 /min 14 /min MEDGEN ( [facility]) Inhaled oxygen 94 % 94 % MEDGEN ([facility], ) Body mass index 23.4 kg/m2 23.4 kg/m2 MEDGEN (S t (BMI) [Ratio] [facility] [place] Diastolic blood 60 mm[Hg] 60 mm[Hg] MEDGEN (S t pressure [facility]) Systolic blood 130 mm[Hg] 130 mm[Hg] [facility] ([facility]) Body weight 154 lb 154 lb [facility] ([facility]) Body height 68 in 68 in [facility] ([facility]) Patient Treatment Plan of Care Planned Activity Planned Date Details Description Data Source (s) Tamsulosin hydrochloride 02/07/2020 [facility] 0.4 MG Oral Capsule 12:00:00 AM EDT ([facility] Medicine and Infectious Dise ase) dolutegravir 50 MG Oral 11/22/2019 [facility] Tablet [Tivicay] 12:00:00 AM EDT ([facility] Medicine and Infectious Dise ase) Metoprolol Tartrate 25 MG 11/22/2019 [facility] Oral Tablet 12:00:00 AM EDT ([facility] Medicine and Infectious Dise ase) Fenofibrate 160 MG Oral 11/16/2019 G[facility] Tablet 12:00:00 AM EDT ([facility] Medicine and Infectious Dise ase) abacavir 300 MG Oral Tablet 10/01/2019 MERRY 12:00:00 AM EDT ([facility] Medicine and Infectious Dise ase) icosapent ethyl 1000 MG 09/27/2019 GREE [facility] Oral Capsule [Vascepa] 12:00:00 AM EDT ([facility] Medicine and Infectious Dise ase) pioglitazone 30 MG Oral 09/27/2019 G[facility] Tablet 12:00:00 AM EDT ([facility] Medicine and Infectious Dise ase) sitagliptin 25 MG Oral 09/26/[address] Tablet [Januvia] 12:00:00 AM EDT ([facility] Medicine and Infectious Dise ase) Glipizide 10 MG Oral Tablet 09/26/2019 MERRY 12:00:00 AM EDT ([facility] Medicine and Infectious Dise ase) Fluticasone Propionate 50 08/03/2019 [facility] MCG/ACT Nasal Suspension 12:00:00 AM EST ([facility] Medicine and Infectious Dise ase) abacavir 300 MG Oral Tablet 08/02/2019 MERRY 12:00:00 AM EST ([facility] Medicine and Infectious Dise ase) QC Fluticasone Propionate 07/16/2019 GR [facility] 50 MCG/ACT Nasal Suspension 12:00:00 AM EST ([facility] Medicine and Infectious Dise ase) cobicistat 150 MG / 06/18/2019 MERRY darunavir 800 MG Oral 12:00:00 AM EST ([facility] Tablet [Prezcobix] Medicine and Infectious Dise ase) Dextromethorphan 3 MG/ML / 05/24/2019 G REEN[facility] Promethazine Hydrochloride 12:00:00 AM EST ([facility] 1.25 MG/ML Oral Solution Med icine and Infectious Dise ase) Zithromax Z-Pk 250 MG Oral 05/24/2019 MERRY Tablet 12:00:00 AM EST ([facility] Medicine and Infectious Dise ase) Lamivudine 100 MG Oral 04/19/[address] Tablet 12:00:00 AM EDT ([facility] Medicine and Infectious Dise ase) abacavir 300 MG Oral Tablet 02/26/2019 MERRY 12:00:00 AM EDT ([facility] Medicine and Infectious Dise ase) Rosuvastatin calcium 10 MG 02/18/2019 G [facility] Oral Tablet 12:00:00 AM EDT ([facility] Medicine and Infectious Dise ase) Tamsulosin hydrochloride 12/31/2018 [facility] [place] 0.4 MG Oral Capsule 12:00:00 AM EDT [facility] Fenofibrate 160 MG Oral 11/02/2018 [facility] Tablet 12:00:00 AM EDT ([facility] Medicine and Infectious Dise ase) Glipizide 10 MG Oral Tablet 10/28/2018 MERRY 12:00:00 AM EDT ([facility] Medicine and Infectious Dise ase) sitagliptin 25 MG Oral 10/05/[address] Tablet [Januvia] 12:00:00 AM EDT ([facility] Infect[facility] Dise [facility]se) icosapent ethyl 1000 MG 09/28/2018 [facility] Oral Capsule [Vascepa] 12:00:00 AM [facility] Albuterol 0.83 MG/ML 09/17/2018 GREEN[place] Inhalant Solution 12:00:00 AM EDT [facility] pioglitazone 30 MG Oral 09/15/2018 [facility] Tablet 12:00:00 AM EDT ([facility] Medicine and Infectious Dise ase) abacavir 300 MG Oral Tablet 08/04/2018 MERRY 12:00:00 AM EST ([facility] Medicine and Infectious Dise ase) Metoprolol Tartrate 25 MG 07/23/2018 [facility] Oral Tablet 12:00:00 AM EST ([facility] Medicine and Infectious Dise ase) cobicistat 150 MG / 06/01/2018 MERRY darunavir 800 MG Oral 12:00:00 AM EST ([facility] Tablet [Prezcobix] Medicine and Infectious Dise ase) Lamivudine 100 MG Oral 05/25/[address] Tablet 12:00:00 AM EST ([facility] Medicine and Infectious Dise ase) Ofloxacin 3 MG/ML 03/23/2018 MERRY Ophthalmic Solution 12:00:00 AM EDT ([facility] Medicine and Infectious Dise ase) Rosuvastatin calcium 10 MG 02/11/2018 G RE[facility] Oral Tablet [Crestor] 12:00:00 AM EDT ([facility] Medicine and Infectious Dise ase) prasugrel 5 MG Oral Tablet 2017 G RE[facility]AY [Effient] 12:00:00 AM EDT ([facility] Medicine and Infectious Dise ase) Fenofibrate 145 MG Oral 08/27/2017 [facility] Tablet [Tricor] 12:00:00 AM EST ([facility] Medicine and Infectious Dise ase) Metoprolol Tartrate 25 MG 07/16/2017 [facility] Oral Tablet 12:00:00 AM EST ([facility] Medicine and Infectious Dise ase) Glipizide 10 MG Oral Tablet 12/12/2016 MERRY 12:00:00 AM EDT ([facility] Medicine and Infectious Dise ase) [place]-3 Acid Ethyl Esters 12/12/2015 [facility] ([facility]) 1000 MG Oral Capsule 12:00:00 AM EDT ([facility] Medicine and Infectious Dise ase) sildenafil 100 MG Oral 08/25/[address] Tablet [Viagra] 12:00:00 AM EST ([facility] Medicine and Infectious Dise ase) levocetirizine 07/25/2014 MERRY dihydrochloride 5 MG Oral 12:00:00 AM EST ([facility] [place] Medicine and Infectious Dise ase) [place]-3 Acid Ethyl Esters 02/18/2014 [facility] ([facility]) 1000 MG Oral Capsule 12:00:00 AM EDT ([facility] [Lovaza] Medicine and Infectious Dise ase) Metoprolol Tartrate 25 MG 12/06/2013 [facility] Oral Tablet 12:00:00 AM EDT ([facility] Medicine and Infectious Dise ase) Lamivudine 100 MG Oral 08/02/[address] Tablet [Epivir HBV] 12:00:00 AM EST ([facility] Medicine and Infectious Dise ase) Dextromethorphan 3 MG/ML / 03/30/2013 G [facility] Promethazine Hydrochloride 12:00:00 AM EDT ([facility] 1.25 MG/ML Oral Solution Med icine and Infectious Dise ase) Zithromax Z-Pk 250 MG OR 03/30/2013 [facility] TABS 12:00:00 AM EDT ([facility] Medicine and Infectious Dise ase) Fenofibrate 160 MG Oral 01/25/2013 [facility] Tablet 12:00:00 AM EDT ([facility] Medicine and Infectious Dise ase) Lamivudine 100 MG Oral 01/04/[address] Tablet [Epivir HBV] 12:00:00 AM EDT ([facility] Medicine and Infectious Dise ase) Lisinopril 2.5 MG Oral 09/25/[address] Tablet 12:00:00 AM EDT ([facility] Medicine and Infectious Dise ase) Glyburide 2.5 MG Oral 09/25/2012 [facility] Tablet 12:00:00 AM EDT ([facility] Medicine and Infectious Dise ase) EC-81 Aspirin 81 MG OR TBEC 09/25/2012 MERRY 12:00:00 AM EDT ([facility] Medicine and Infectious Dise ase) darunavir 600 MG Oral 09/07/2012 [facility] [facility] Tablet [Prezista] 12:00:00 AM EST ([facility] Medicine and Infectious Dise ase) Promethazine Hydrochloride 07/22/2012 G [facility] 50 MG/ML Injectable 12:00:00 AM EST ([facility] Solution [Phenergan] Medicin e and Infectious Dise ase) Zithromax Z-Pk 250 MG OR 07/14/2012 [facility] TABS 12:00:00 AM EST ([facility] Medicine and Infectious Dise ase) [place]-3 Acid Ethyl Esters 06/22/2012 [facility] ([facility]) 1000 MG Oral Capsule 12:00:00 AM EST ([facility] [Lovaza] Medicine and Infectious Dise ase) Lamivudine 100 MG Oral 05/04/[address] Tablet [Epivir HBV] 12:00:00 AM EDT ([facility] Medicine and Infectious Dise ase) Rosuvastatin calcium 20 MG 11/18/2011 G RE[facility] Oral Tablet [Crestor] 12:00:00 AM EDT ([facility] Medicine and Infectious Dise ase) Glyburide 5 MG Oral Tablet 10/07/2011 G [facility] 12:00:00 AM EDT ([facility] Medicine and Infectious Dise ase) Nystatin 247360 UNT/ML / 10/07/2011 [facility] Triamcinolone Acetonide 1 12:00:00 AM EDT ([facility] MG/ML Topical Cream Medicine and Infectious Dise ase) Levofloxacin 500 MG Oral 09/27/2011 [facility] Tablet [Levaquin] 12:00:00 AM EDT ([facility] Medicine and Infectious Dise ase) Nasonex 50 MCG/ACT NA SUSP 09/20/2011 G [facility] 12:00:00 AM EDT ([facility] Medicine and Infectious Dise ase) Didanosine 125 MG Delayed 09/04/2011 [facility] Release Oral Capsule 12:00:00 AM EST ([facility] Medicine and Infectious Dise ase) Ritonavir 100 MG Oral 09/04/2011 [facility] AY Capsule [Norvir] 12:00:00 AM EST ([facility] Medicine and Infectious Dise ase) darunavir 600 MG Oral 09/04/2011 [facility] Tablet [Prezista] 12:00:00 AM EST ([facility] Medicine and Infectious Dise ase) [place]-3 Acid Ethyl Esters 08/16/2011 [facility] ([facility]) 1000 MG Oral Capsule 12:00:00 AM EST ([facility] [L[place]aza] Medicine and Infectious Dise ase) Tamsulosin hydrochloride 07/19/2011 [facility] 0.4 MG Oral Capsule 12:00:00 AM EST ([facility] [Flomax] Medicine and Infectious Dise ase) Glyburide 2.5 MG Oral 03/05/2011 [facility] [address] Tablet 12:00:00 AM EDT ([facility] Medicine and Infectious Dise ase) Ritonavir 100 MG Oral 03/05/2011 [facility] Tablet [Norvir] 12:00:00 AM EDT ([facility] Medicine and Infectious Dise ase) darunavir 600 MG Oral 03/05/2011 [facility] Tablet [Prezista] 12:00:00 AM EDT ([facility] Medicine and Infectious Dise ase)
--- NOTE | 2020-04-09 21:35 | EKG ---
Test Reason : Blood Pressure : / mmHG Vent. Rate : 065 BPM Atrial Rate : 065 BPM P-R Int : 196 ms QRS Dur : 160 ms QT Int : 462 ms P-R-T Axes : 044 096 033 degrees QTc Int : 480 ms NORMAL SINUS RHYTHM RIGHT BUNDLE BRANCH BLOCK ABNORMAL ECG WHEN COMPARED WITH ECG OF 01-FEB-2020 11:50, PREMATURE ATRIAL COMPLEXES ARE NO LONGER PRESENT Confirmed by DIONI ROMAN MD ([id number]) on 04/09/2020 9:34:55 PM Referred By: Confirmed By:DIONI ROMAN MD
== END 2020-04-07 18:37 | disposition home or self-care (01) ==
LOC: JER 13:33
PROC: 3E0234Z Introduction of Serum, Toxoid and Vaccine into Muscle, Percutaneous Approach (ICD-10-PCS; principal; 2020-04-07)
PROC: 3E0337Z Introduction of Electrolytic and Water Balance Substance into Peripheral Vein, Percutaneous Approach (ICD-10-PCS; 2020-04-07)
DX: E11.65 Type 2 diabetes mellitus with hyperglycemia (principal); M79.674 Pain in right toe(s)
CPT/HCPCS: 36415; 71045-TC-FY; 73630-TC-RT-FY; 80053; 82962; 84550; 85025; 85651; 86140; 93005; 93010; 99285-25

== ENCOUNTER 2020-04-10 15:32 | Observation (INO) | payer BC, OTHER ==
--- NOTE | 2020-04-10 15:50 | PDOC ---
History of Present Illness - General Chief Complaint: Injury Stated Complaint: FALL Time Seen by Provider: 04/10/20 15:43 History Source: Patient Exam Limitations: No Limitations - History of Present Illness Initial Comments: 04/10/20 15:50 84M with PMH of CAD x4 stents, CKD, HIV (on HAART therapy), DM, on daily ASA present to ED via EMS after a fall today. He reports being at his sink, feeling dizziness (described as room spinning) and fell, and hit his head. Denied LOC. No TAMEZ, vision changes, cp, sob, or palpitations prior to the fall. He's had a few of these episodes before, but unsure of the cause. Currently reports head and neck pain, but denies vision changes, dizziness, numbness, tingling, or weakness. PMH: as in HPI SH: see below Meds: In chart Allergies: NKDA Tob/Etoh/Rec drugs: neg x3 PCP: Dr. Doron SOTO GENERAL/CONSTITUTIONAL: No fever or chills. No weakness. HEENT: No change in vision. No ear pain or discharge. No sore throat. CARDIOVASCULAR: No chest pain or shortness of breath RESPIRATORY: No cough, wheezing, or hemoptysis. GASTROINTESTINAL: No nausea, vomiting, diarrhea or constipation. GENITOURINARY: No dysuria, frequency, or change in urination. MUSCULOSKELETAL: No joint or muscle swelling or pain. No neck or back pain. SKIN: No rash NEUROLOGIC: +headache; no loss of consciousness, or change in strength/sensation. ENDOCRINE: No increased thirst. No abnormal weight change HEMATOLOGIC/LYMPHATIC: No anemia, easy bleeding, or history of blood clots. ALLERGIC/IMMUNOLOGIC: No hives or skin allergy. PE GENERAL: AOx3; no apparent distress HEAD: 4-5cm laceration to occipital region of scalp w/o irregular borders, well approximated; hemostasis achieved EYES: PERRLA, EOMI, sclera anicteric, conjunctiva clear ENT: Auricles normal inspection, hearing grossly normal, nares patent, moist mucosa, oropharynx clear without exudates. NECK: Normal ROM, supple, no LAD, JVD, or masses HEART: RRR, normal S1/S2, no murmurs, rubs, or gallops. Peripheral pulses 2+ and equal bilaterally. LUNGS: No distress, speaks full sentences, CTA bilaterally ABDOMEN: Soft, nontender. No guarding, no rebound. No masses EXTREMITIES: Normal inspection, Normal range of motion, no edema. NEUROLOGICAL: CNII-XII intact. Normal speech. No focal sensorimotor deficits. Cerebellar testing intact (finger to nose and heel to madden) SKIN: Warm, Dry, normal turgor. No rashes or lesions noted Assessment and Plan 1. r/o intracranial hemorrhage or c-spine fracture 2. eval for etiology of dizziness Moreno Mcadams, PGY1 Emergency Medicine Past History - Medical History Allergies/Adverse Reactions: Allergies Allergy/AdvReac Type Severity Reaction Status Date / Time No Known Allergies Allergy Verified 04/07/20 13:43 Home Medications: Ambulatory Orders Alpha Lipoic Acid 200 mg PO TID 12/17/12 Ascorbate Calcium/Bioflav [Cande-C 500 mg Tablet] 1 each PO TID 12/17/12 Fenofibrate [Lipofen] 160 mg PO DAILY 12/17/12 Ferrous Fumarate 65 mg PO DAILY 12/17/12 Sitagliptin Phosphate [Januvia] 25 mg PO DAILY 08/25/16 Cholecalciferol (Vitamin D3) [Vitamin D3] 2,000 unit PO BID 11/27/16 Multivitamin with Minerals [Icaps Plus] 1 each PO DAILY 11/27/16 Vitamin B Complex 1 tab PO DAILY 11/27/16 Vitamin E 400 unit PO DAILY 11/27/16 Carboxymethylcellulos/Glycerin [Lubricant 0.5-0.9% Eye Drops] 15 ml OP PRN 7 Days #1 drops 03/22/18 Tamsulosin HCl [Flomax] 0.4 mg PO DAILY 10/01/18 Fluticasone Prop 0.05% Nasal [Flonase -] 1 spray NS BID 12/13/19 Icosapent Ethyl [Vascepa] 2 cap PO BID 12/13/19 Lamivudine 50 mg PO DAILY 12/14/19 Melatonin 5 mg PO HS PRN tab 12/17/19 Acetaminophen [Tylenol .Regular Strength -] 650 mg PO Q6H PRN tablet 02/03/20 Aspirin Coated [Ecotrin -] 81 mg PO DAILY tablet.ec 02/03/20 Clopidogrel Bisulfate [Plavix -] 75 mg PO DAILY tablet 02/03/20 Darunavir/Cobicistat [Prezcobix 800 mg-150 mg Tablet] 1 each PO DAILY tablet 02/03/20 Docusate Sodium [Colace -] 300 mg PO HS capsule 02/03/20 Dolutegravir Sodium [Tivicay] 50 mg PO DAILY tablet 02/03/20 Glipizide [Glucotrol -] 10 mg PO BID@0700,1630 tablet 02/03/20 Lamivudine Oral Soln [Epivir Oral Solution -] 50 mg PO DAILY ml 02/03/20 Metoprolol Tartrate [Lopressor -] 25 mg PO BID tablet 02/03/20 Pioglitazone HCl [Actos] 30 mg PO DAILY@0700 tablet 02/03/20 Rosuvastatin [Crestor -] 10 mg PO HS tablet 02/03/20 Anemia: No Asthma: No Cancer: No Cardiac Disorders: Yes (CAD, EF 66%) CVA: Yes (TIA) COPD: Yes CHF: No DVT: No Dementia: No Diabetes: Yes GI Disorders: Yes (Proctitis) Disorders: Yes (BPH) HTN: Yes Hypercholesterolemia: Yes Liver Disease: No Seizures: No Thyroid Disease: No Lung CA: (pulmonary nodules) - Surgical History Abdominal Surgery: Yes (ANAL FISSURE) Appendectomy: No Cardiac Surgery: Yes (CARDIAC STENT; carotid endarterectomy) Cholecystectomy: No Lung Surgery: No Neurologic Surgery: No Orthopedic Surgery: No - Immunization History Td Vaccination: (unsure) Immunization Up to Date: Yes - Psycho-Social/Smoking History Smoking Status: No Smoking History: Never smoked Years of Tobacco Use: 0 Have you smoked in the past 12 months: No Number of Cigarettes Smoked Daily: 0 Cigars Per Day: 0 Information on smoking cessation initiated: No - Substance Abuse Hx (Audit-C & DAST Scrn) How often the patient has a drink containing alcohol: Never Score: In Men: 4 or > Positive; In Women: 3 or > Positive: 0 Screen Result (Pos requires Nsg. Audit-10AR): Negative In the last yr the pt used illegal drug/Rx for NonMed reason: No Score: Yes response is considered Positive: 0 Screen Result (Positive result requires Nsg. DAST-10): Negative *Physical Exam - Vital Signs Last Vital Signs Temp Pulse Resp BP Pulse Ox 97.3 F L 65 18 138/69 100 04/10/20 15:39 04/10/20 15:39 04/10/20 15:39 04/10/20 15:39 04/10/20 15:39 Procedures - Laceration/Wound Repair Head Wound Length: 5.0 to 7.5 cm Wound Explored: clean Wound's Depth, Shape: superficial Irrigated w/ Saline: Yes Betadine Prep: No Anesthesia: 1% Lidocaine w/ Epi Amount of Anesthetic (ccs): 6 Wound Repaired With: Bianka (6 bianka ) Number of Sutures: 6 Sterile Dressing Applied: No ED Treatment Course - LABORATORY CBC & Chemistry Diagram: 04/10/20 16:55 04/10/20 16:55 Medical Decision Making - Medical Decision Making 04/10/20 17:42 84M presented to ED after fall 2/2 dizziness. He reports more frequent episodes of dizziness. 04/10/20 19:58 CBC wnl. CMP demonstrated elevated BUN and creatinine, constistent with baseline, otherwise wnl. Troponin negative. Head and c-spine negative. 04/10/20 20:[address] Phillips, will admit pt to his service. 04/10/20 20:04 Scalp wound was cleaned with saline and approximated using bianka. Discharge - Discharge Information Problems reviewed: Yes Clinical Impression/Diagnosis: Syncope and collapse, Dizziness Syncope Qualifiers: Syncope type: unspecified Qualified Code(s): R55 - Syncope and collapse Condition: Stable - Admission Yes - Follow up/Referral Referrals: Jorge Luis Sal MD [Staff Physician] - - Patient Discharge Instructions - Post Discharge Activity
[2020-04-10] MEDS ORDERED: DIPHTH,PERTUSS(ACELL),TET 0.5 ML DISP.SYRIN IM ONE ×2 (16:15→17:00)
[2020-04-10 17:02] LABS: BASO % 0.6 % (0-2.0); EOS % 5.5 % (0-4.5); HEMATOCRIT 35.2 % (35.4-49); LYMPH % 31.1 % (8-40); MCH 33.1 pg (25.7-33.7); MCHC 34.1 g/dl (32.0-35.9); MONO % 10.3 % (3.8-10.2); NEUT % 52.5 % (42.8-82.8); PLATELET COUNT 203 K/MM3 (134-434); RBC 3.63 M/mm3 (4.00-5.60); RDW 13.6 % (11.9-15.9); WHITE BLOOD COUNT 5.9 K/mm3 (4.0-10.0)
[2020-04-10 17:10] LABS: INR 1.05 (0.83-1.09); PROTHROMBIN TIME (PATIENT) 12.4 SEC (9.7-13.0)
[2020-04-10 17:13] LABS: ACTIVATED PTT 30.6 SECONDS (25.2-36.5)
--- NOTE | 2020-04-10 17:21 | PDOC ---
Documentation entered by Socorro Hope SCRIBE, acting as scribe for Loren Castle MD. Loren Castle MD: This documentation has been prepared by the Herminia medina Brenda, SCRIBE, under my direction and personally reviewed by me in its entirety. I confirm that the documentation accurately reflects all work, treatment, procedures, and medical decision making performed by me. Attending Attestation - Resident Resident Name: Moreno Mcadams - ED Attending Attestation I have performed the following: I have examined & evaluated the patient, The case was reviewed & discussed with the resident, I agree w/resident's findings & plan, Exceptions are as noted - HPI HPI: 04/10/20 17:20 This 84 yo male presents s/p fall after having a dizzy episode. He fell and hit his head. He has had previous dizzy episodes recently.Today he sustained a scalp laceration - Physicial Exam PE: 04/10/20 17:21 84 yo male p/w head trauma head scalp laceration eyes no nystagmus neck paraspinal tenderness cvs [id number] abdomen nontender skin warm and dry extremities no deformities lungs cta b/l neuro axox3 04/10/20 17:25 - Medical Decision Making 04/10/20 17:25 PMH HIV,CKD,CAD 04/10/20 17:25 plan : ct head,labs,ekg,troponin,admission to telemetry 04/10/20 18:43 first troponin is negative Discharge - Discharge Information Problems reviewed: Yes Clinical Impression/Diagnosis: Syncope and collapse, Dizziness Syncope Qualifiers: Syncope type: unspecified Qualified Code(s): R55 - Syncope and collapse Condition: Stable - Follow up/Referral - Patient Discharge Instructions - Post Discharge Activity
[2020-04-10 17:30] LABS: ALBUMIN 3.6 g/dl (3.4-5.0); ALK PHOS 43 U/L (45-117); ANION GAP 7 MMOL/L (8-16); BILIRUBIN,TOTAL 0.7 mg/dL (0.2-1); BLOOD UREA NITROGEN 24.9 mg/dL (7-18); CHLORIDE 101 mmol/L (98-107); CO2 27 mmol/L (21-32); CREATININE 2.4 mg/dL (0.55-1.3); GLUCOSE,RANDOM 281 mg/dL (74-106); SGOT/AST 23 U/L (15-37); SGPT/ALT 24 U/L (13-61); SODIUM 135 mmol/L (136-145)
--- OUTSIDE RECORDS SUMMARY | 2020-04-10 18:05 | XMS ---
:1935 Author Organization [facility] Care Team Providers Name Role Phone ED STAFF PHYSICIANBEVERLEY Unavailable Unavailable [facility] Unavailable Unavailable Digiorno, Jayden Unavailable Unavailable Digiorno, [...] is protected by Article 27-F of the [facility] Public Health law. If you continue you may haveaccess to information: Regarding HIV / AIDS; Provided by facilities licensed or operated by the [facility] Office of Mental Health; or Provided by the [facility] Office for People With Developmental Disabilities. If such information is present, then the following [facility] mandated warning applies: This information has [...] law may result in a fine or usp sentence or both. A general authorization for the release of medical or other information is NOT sufficient authorization for further disclosure. Allergies and Adverse Reactions Type Description Substance Reaction Status Data Source(s ) Allergy to No Known Allergies No known GREENW AY substance allergies ([facility]) Medicine and Infectious Disease) Allergy to No Known Allergies No known GREENW AY substance allergies ([facility] Medicine and Infectious Disease) Allergy to No Known Allergies No known GREENW AY substance allergies ([facility] Medicine and Infectious Disease) Allergy to No Known Allergies No known GREENW AY substance allergies ([facility] Medicine and Infectious Disease) Allergy to No Known Allergies No known GREENW AY substance allergies ([facility]) Medicine and Infectious Disease) Allergy to No Known Allergies No known GREENW AY substance allergies ([facility]) Medicine and Infectious Disease) Allergy to No Known Allergies No known GREENW AY substance allergies ([facility] ([facility]) Medicine and Infectious Disease) Encounters Encounter Providers Location Date Indications Data Source(s ) Attender: Jayden 03/14/2020 [facility] ([facility] 12:00:00 AM EDT Medical, PC) Office Attender: Jayden Singh 03/14/2020 12:00:00 AM EDT [facility] ([facility], ) Office Outpatient<td Attender: [facility] 01/28/2020 Hiv [place] ID="encounterTypeDescriptionID0">Follow-Up</td><td>Fred CASTELLANOS MEDICINE & 12:33:00 PM InfectionChronic ([facility]</td><td>[facility] MEDICINE & INFECTIOUS [place] INFECTIOUS EDT - Renal [place] Medicine DISEASE</td><td>01/28/2020</td><td><content DISEASE FailureDiabetes and Infectious ID="encounterDiagnosisID0-0">Hiv Infection</content>, 01:40:00 PM [place] Disease) <content ID="encounterDiagnosisID0-1">Diabetes EDT Mellitus</content>, <content ID="encounterDiagnosisID0-2">Chronic Renal Failure</content></td> Hiv Infection Chronic Renal Failure Diabetes [place] Outpatient<td Attender: [facility] 12/27/2019 Hiv [place] ID="encounterTypeDescriptionID0">Follow-Up</td><td>Fred CASTELLANOS MEDICINE & 11:46:00 AM InfectionDiabetes ([facility]</td><td>[facility] MEDICINE & INFECTIOUS [place] INFECTIOUS EDT - [place] Medicine DISEASE</td><td>12/27/2019</td><td><content DISEASE and Infectious ID="encounterDiagnosisID0-0">Diabetes 11:59:00 PM Disease) Mellitus</content>, <content EDT ID="encounterDiagnosisID0-1">Hiv Infection</content></td> Hiv Infection Diabetes [place] Outpatient<td Attender: [facility] 11/22/2019 Hiv [place] ID="encounterTypeDescriptionID0">Follow-Up</td><td>Fred CASTELLANOS MEDICINE & 02:25:00 PM InfectionDiabetes ([facility]</td><td>[facility] MEDICINE & INFECTIOUS [place] INFECTIOUS EDT - [place] Medicine DISEASE</td><td>11/22/2019</td><td><content DISEASE and Infectious ID="encounterDiagnosisID0-0">Diabetes 03:12:00 PM Disease) Mellitus</content>, <content EDT ID="encounterDiagnosisID0-1">Hiv Infection</content></td> Hiv Infection Diabetes [place] Emergency Attender: BEVERLEY ED STAFF H 09/27/2019 11:18:00 AM [facility] PHYSICIANAttender: STAFF ED EDT - 09/27/2019 [facility] Center STAFF PHYSICIANAdmitter: 10:10:00 PM EDT BEVERLEY ED STAFF PHYSICIAN Patient discharged. Lab results<td Attender: [facility] 09/14/2019 Hiv [place] ID="encounterTypeDescriptionID0">Lab [facility] MEDICINE & 03: 35:00 PM InfectionDiabetes ([facility] results</td><td>Fred Marks MD INFECTIOUS EDT - [place] JASMIN Mcelroy MD</td><td>[facility] MEDICINE & DISEASE 0 and Infectious INFECTIOUS 05:10:00 PM Disease) DISEASE</td><td>09/14/2019</td><td><content EDT ID="encounterDiagnosisID0-0">Diabetes Mellitus</content>, <content ID="encounterDiagnosisID0-1">Hiv Infection</content></td> Hiv Infection Diabetes [place] Outpatient Attender: [id number] 08/24/2019 12:22:46 PM I ([facility]) Patient admitted. Outpatient<td Attender: [facility] 06/15/2019 Hiv [place] ID="encounterTypeDescriptionID0">Coming to [facility] MEDICINE & 01:42:00 PM InfectionDiabetes ([facility] have forms completed</td><td>Fred Marks MD INFECTIOUS EST - [place] JASMIN Medicine </td><td>[facility] MEDICINE & DISEASE 9 and Infectious INFECTIOUS 03:02:00 PM Disease) DISEASE</td><td>06/15/2019</td><td><content EST ID="encounterDiagnosisID0-0">Diabetes Mellitus</content>, <content ID="encounterDiagnosisID0-1">Hiv Infection</content></td> Hiv Infection Diabetes [place] Outpatient<td Attender: [facility] 02/22/2019 Hiv [place] ID="encounterTypeDescriptionID0">Walk-in [facility] MEDICINE & 12:05:00 PM InfectionDiabetes ([facility] patient</td><td>Fred Marks MD INFECTIOUS EDT - [place] [facility] </td><td>[facility] MEDICINE & DISEASE 9 and Infectious INFECTIOUS 12:57:00 PM Disease) DISEASE</td><td>02/22/2019</td><td><content EDT ID="encounterDiagnosisID0-0">Diabetes Mellitus</content>, <content ID="encounterDiagnosisID0-1">Hiv Infection</content></td> Hiv Infection Diabetes [place] Outpatient<td Attender: [facility] 12/14/2018 Hiv [place] ID="encounterTypeDescriptionID0">Walk-in [facility] MEDICINE & 12:27:00 PM InfectionDiabetes ([facility] patient</td><td>Fred Marks MD INFECTIOUS EDT - [place] [facility] </td><td>[facility] MEDICINE & DISEASE 9 and Infectious INFECTIOUS 01:05:00 PM Disease) DISEASE</td><td>12/14/2018</td><td><content EDT ID="encounterDiagnosisID0-0">Hiv Infection</content>, <content ID="encounterDiagnosisID0-1">Diabetes Mellitus</content></td> Hiv Infection Diabetes Mell[place] Medications Medication Brand Start Product Dose Route Administrative Pharmacy [facility] Indications Reaction Description Data Name Date Form Instructions Instructions Source(s) Tamsulosin Tamsul active tamsulos in [place] hydrochlori osin 2020 hydrochlorid (Met[facility] de 0.4 MG HCl 12:00: e 0.4 MG [place] Oral 0.4 MG 00 AM Oral Capsule Medi cine Capsule Oral EDT and Tamsulosin Capsul Infecti ous HCl 0.4 MG e Disease) Oral Capsule dolutegravi Tivica [facility] [place] r 50 MG y 50 2020 50 [...] EST Metered Dose a nd MCG/AC Nasal [place] Infect ious T Disease) Nasal [place] paul [...] VASCEP 01/22/ CAPSULE 30 complet ISAIAS CHOUDHURY Adjug (St ethyl 1000 A:1304 2019 ed [facility] MG Oral 985 12:00: Medical, Capsule 00 AM PC) [Vascepa] EDT VASCEPA:130 4985 icosapent VASCEP 01/22/ CAPSULE 30 complet ISAIAS CHOUDHURY Adjug (St ethyl 1000 A:1304 2019 ed [facility] MG Oral 985 12:00: Medical, Capsule 00 AM PC) [Vascepa] EDT VASCEPA:130 4985 icosapent VASCEP 01/22/ CAPSULE 30 complet ISAIAS [employer] (St ethyl 1000 A:1304 2019 ed [facility] [...] MG Oral OGREL: 2019 ed [facility] Tablet [id number] 12:00: Medical, CLOPIDOGREL 00 AM PC) :034709 EST abacavir ABACAV 07/24/ complet ABACAVIR MEDGEN [...] 0488 12:00: Medical, GLIPIZIDE:3 00 AM PC) 08804 EST Fenofibrate FENOFI 07/24/ complet FENOFI BRATE [facility] (St 160 MG Oral BRATE: 2018 ed [facility] Tablet 713965 12:00: Medical, FENOFIBRATE 00 AM PC) :928362 EST Lamivudine LAMIVU 07/24/ complet LAMIVUD INE [facility] (St LAMIVUDINE: DINE:6 2018 ed [facility] 78579 8244 12:00: Medical, 00 AM PC) EST [...] 0488 12:00: Medical, GLIPIZIDE:3 00 AM PC) 01228 EST Fenofibrate FENOFI 07/24/ complet FENOFI BRATE [facility] (St 160 MG Oral BRATE: 2018 ed [facility] Tablet 172823 12:00: Medical, FENOFIBRATE 00 AM PC) :812463 EST CO Q-10: 07/24/ complet CO Q-10 MED GEN (St 2018 ed [facility] 12:00: Medical, 00 AM PC) EST Melatonin 3 MELATO complet MELATO LINO MEDGEN (St MG Oral LINO:2018 ed [facility] Tablet 9163 12:00: Medical, MELATONIN:1 00 AM PC) 17850 EST cobicistat PREZCO complet PREZCOB IX MEDGEN (St 150 MG / BIX:2018 ed [facility] darunavir 12663 12:00: Medical , 800 MG Oral 00 AM PC) Tablet EST [Prezcobix] PREZCOBIX:1 168906 CALCIUM: complet CALCIUM MED GEN (St 2018 ed [facility] 12:00: Medical, 00 AM PC) EST Rosuvastati ROSUVA complet ROSUVA STATIN MEDGEN (St n calcium STATIN 2018 ed [facility] 10 MG Oral :82974 12:00: Medic al, Tablet 7 00 AM PC) ROSUVASTATI EST N:192899 Aspirin 81 ASPIRI 07/24/ complet ASPIRIN [facility] (St MG Delayed N:3084 2018 ed [facility] Release 16 12:00: Medical, Oral Tablet 00 AM PC) ASPIRIN:308 EST 416 Metoprolol METOPR 07/24/ TABLET 30 complet METOP ROLOL [facility] (St Tartrate 25 OLOL:8 2018 ed [facility] MG Oral 81606 12:00: Medical, Tablet 00 AM PC) METOPROLOL: EST 885503 CO Q-10: 07/24/ complet CO Q-10 MED GEN (St 2018 ed [facility] 12:00: Medical, 00 AM PC) EST pioglitazon PIOGLI complet PIOGLI TAZONE MED[facility] (St e 30 MG TAZONE 2018 ed [facility] Oral Tablet :54215 12:00: Medi endy, PIOGLITAZON 0 00 AM PC) E:078424 EST clopidogrel CLOPID complet CLOPID OGREL [facility] (St 75 MG Oral OGREL: 2018 ed [facility] Tablet 651607 12:00: Medical, CLOPIDOGREL 00 AM PC) :333223 EST abacavir ABACAV 07/24/ complet ABACAVIR [facility] (St 300 MG Oral IR:242 2018 ed [place] Tablet 679 12:00: Medical, ABACAVIR:24 00 AM PC) 2679 EST Metoprolol METOPR 07/24/ TABLET 30 complet METOP ROLOL MEDGEN (St Tartrate 25 OLOL:8 2018 ed [place] MG Oral 51228 12:00: Medical, Tablet 00 AM PC) METOPROLOL: EST 977587 pioglitazon PIOGLI 07/24/ complet PIOGLI TAZONE MEDGEN (St e 30 MG TAZONE 2018 ed [place] Oral Tablet :85595 12:00: Medi endy, PIOGLITAZON 0 00 AM PC) E:272225 EST cobicistat PREZCO 07/24/ complet PREZCOB IX MEDGEN (St 150 MG / BIX:16 2018 ed [place] darunavir 39487 12:00: Medical , 800 MG Oral 00 AM PC) Tablet EST [Prezcobix] PREZCOBIX:1 814805 Lamivudine LAMIVU 07/24/ complet LAMIVUD INE MED[facility] (St LAMIVUDINE: DINE:6 2018 ed [place] 04823 8244 12:00: Medical, 00 AM PC) EST Tamsulosin TAMSUL 07/24/ complet TAMSULO SIN MEDGEN (St hydrochlori OSIN:2018 ed [place] de 0.4 [place] [address] 12:00: Medical , Oral 00 AM PC) Capsule EST TAMSULOSIN: 305751 Melatonin 3 MELATO 07/24/ complet MELATO LINO MEDGEN (St MG Oral LINO:2018 ed [place] Tablet 9163 12:00: Medical, MELATONIN:1 00 AM PC) 46796 EST Cholecalcif VITAMI 07/24/ complet VITAMI N D3 MEDGEN (St kyrie 1000 N 2018 ed [place] UNT Oral D3:199 12:00: Medical , Tablet 362 00 AM PC) VITAMIN EST D3:648202 VITAMIN B 07/24/ complet VITAMIN B MEDGEN (St COMPLEX: 2019 ed COMPLEX [place] 12:00: Medical, 00 AM PC) EST Vitamin E VITAMI 07/24/ complet VITAMIN E MED[facility] (St 400 UNT N 2018 ed [place] Oral E:2377 12:00: Medical, Capsule 35 00 AM PC) VITAMIN EST E:983849 Cholecalcif VITAMI 07/24/ complet VITAMI N D3 [facility] (St kyrie 1000 N 2019 ed [facility] UNT Oral D3:199 12:00: Medical , Tablet 362 00 AM PC) VITAMIN EST D3:450954 VITAMIN B 07/24/ complet VITAMIN B MEDGEN (St COMPLEX: 2019 ed COMPLEX [place] 12:00: Medical, 00 AM PC) EST Vitamin E VITAMI 07/24/ complet VITAMIN E MEDGEN (St 400 UNT N 2019 ed [facility] Oral E:2377 12:00: Medical, Capsule 35 00 AM PC) VITAMIN EST E:767927 Tamsulosin TAMSUL 07/24/ complet TAMSULO SIN MEDGEN (St hydrochlori OSIN:8 2018 ed [facility] [place] 0[place]4 [place] [address] 12:00: Medical , Oral 00 AM PC) Capsule EST TAMSULOSIN: 307209 Rosuvastati ROSUVA 07/24/ complet ROSUVA STATIN MEDGEN (St n calcium STATIN 2018 ed [facility] 10 MG Oral :74181 12:00: Medic al, Tablet 7 00 AM PC) ROSUVASTATI EST N:553133 Aspirin 81 ASPIRI 07/24/ complet ASPIRIN MED[facility] (St MG Delayed N:3084 2018 ed [facility] Release 16 12:00: Medical, Oral Tablet 00 AM PC) ASPIRIN:308 EST 416 abacavir ABACAV 07/24/ complet ABACAVIR [facility] (St 300 MG Oral IR:242 2018 ed [facility] Tablet 679 12:00: Medical, ABACAVIR:24 00 AM PC) 2679 EST VITAMIN B 07/24/ complet VITAMIN B MEDGEN (St COMPLEX: 2018 ed [facility] 12:00: Medical, 00 AM PC) EST cobicistat PREZCO 07/24/ complet PREZCOB IX MEDGEN (St 150 MG / BIX:16 2018 ed [facility] darunavir 18520 12:00: Medical , 800 MG Oral 00 AM PC) Tablet EST [Prezcobix] PREZCOBIX:1 157108 pioglitazon PIOGLI 07/24/ complet PIOGLI TAZONE MEDGEN (St e 30 MG TAZONE 2018 ed [facility] Oral Tablet :07277 12:00: Medi endy, PIOGLITAZON 0 00 AM PC) E:452033 EST Tamsulosin TAMSUL 07/24/ complet TAMSULO SIN MEDGEN (St hydrochlori OSIN:2018 ed [place] 0.4 [place] [address]81 12:00: Medical , Oral 00 AM PC) Capsule EST TAMSULOSIN: 887787 Rosuvastati ROSUVA 07/24/ complet ROSUVA STATIN MEDGEN (St n calcium STATIN 2019 ed [facility] 10 MG Oral :55849 12:00: Medic al, Tablet 7 00 AM PC) ROSUVASTATI EST N:150319 Cholecalcif VITAMI 07/24/ complet VITAMI N D3 MEDGEN (St kyrie 1000 N 2018 ed [place] UNT Oral D3:199 12:00: Medical , Tablet 362 00 AM PC) VITAMIN EST D3:556741 Vitamin E VITAMI 07/24/ complet VITAMIN E MEDGEN (St 400 UNT N 2018 ed [place] Oral E:2377 12:00: Medical, Capsule 35 00 AM PC) VITAMIN EST E:169993 Glipizide GLIPIZ 07/24/ TABLET 30 complet GLIPIZ JORDAN MEDGEN (St 10 MG Oral JORDAN:2018 ed [facility] Tablet 0488 12:00: Medical, GLIPIZIDE:3 00 AM PC) 48060 EST Fenofibrate FENOFI 07/24/ complet FENOFI BRATE MEDGEN (St 160 MG Oral BRATE: 2018 ed [facility] Tablet 691951 12:00: Medical, FENOFIBRATE 00 AM PC) :877195 EST CO Q-10: 07/24/ complet CO Q-10 MED GEN (St 2018 ed [facility] 12:00: Medical, 00 AM PC) EST clopidogrel CLOPID 07/24/ complet CLOPID OGREL MEDGEN (St 75 MG Oral OGREL: 2018 ed [facility] Tablet 437847 12:00: Medical, CLOPIDOGREL 00 AM PC) :989853 EST CALCIUM: 07/24/ complet CALCIUM MED GEN (St 2018 ed [facility] 12:00: Medical, 00 AM PC) EST Melatonin 3 MELATO 07/24/ complet MELATO LINO MEDGEN (St MG Oral LINO:2018 ed [facility] Tablet 9163 12:00: Medical, MELATONIN:1 00 AM PC) 97423 EST Metoprolol METOPR 07/24/ TABLET 30 complet METOP ROLOL MEDGEN (St Tartrate 25 OLOL:2018 ed [facility]epide[facility] MG Oral 40670 12:00: Medical, Tablet 00 AM PC) METOPROLOL: EST 605345 sitagliptin JANUVI 07/24/ complet JANUVI A MEDGEN (St 25 MG Oral A:6650 2018 ed [facility] Tablet 40 12:00: Medical, [Januvia] 00 AM PC) JANUVIA:665 EST 040 Lamivudine LAMIVU 07/24/ complet LAMIVUD INE MEDGEN (St LAMIVUDINE: DINE:6 2018 ed [facility] 25000 8244 12:00: Medical, 00 AM PC) EST [...] Oral Tablet EDT and Tablet Infectious Disease) [place]-3 [place]- active omega-3 aci d MERRY Acid Ethyl 3-acid 2015 ethyl esters ([facility] Esters Ethyl 12:00: (GROUP HOME) 1000 [place] (GROUP HOME) 1000 Esters 00 AM MG Oral Med icine MG Oral 1 GM EDT Capsule and Capsule Capsul Infectious [place]-3-aci e Disease) d Ethyl Esters 1 GM [...] Disease) Dihydrochlo Tablet ride 5 MG Tablet [place]-3 [place] complet omega-3 ac id MERRY Acid Ethyl 1 GM 2013 ed ethyl esters ( [facility] Esters [place] 12:00: (GROUP HOME) 1000 [place] (GROUP HOME) 1000 CAPS 00 AM MG Oral Medic [...] ( Metropoli Tablet 100 MG 12:00: Tablet [place] [Epivir OR 00 AM [Epivir HBV] [...] and TABS } Pack Infectious [Z-PK] Disease) [place]-3 [place] complet omega-3 ac id MERRY Acid Ethyl 1 GM 2012 ed ethyl esters ( [facility] Esters [place] 12:00: (GROUP HOME) 1000 [place] (GROUP HOME) 1000 CAPS 00 AM MG Oral Medic [...] Infectious Disease) Nystatin Nystat complet nystatin MERRY 819195 in-Tri 2012 ed 480429 (Metropol i UNT/ML / amcino 12:00: UNT/ML / [place] Triamcinolo lone 00 AM triamcinolon Medicine [place] 639874 EDT e acetonide and Acetonide 1 -0.1 1 MG/ML Infec tious MG/ML UNIT/G Topical Disease) Topical M-% EX Cream Cream CREA Nystatin-Tr iamcinolone 968797-8.1 UNIT/GM-% EX CREA Levofloxaci Levaqu complet levofl [...] Metered Dose Medici ne SUSP EDT Nasal [place] and [Nasonex] Infectious Disease) darunavir Prezis complet [...] Infectious Didanosine Disease) 125 MG OR CPDR [place]-3 [place] complet omega-3 ac id MERRY Acid Ethyl 1 GM 2011 ed ethyl esters ( [facility] Esters [place] 12:00: (GROUP HOME) 1000 [place] (GROUP HOME) 1000 CAPS 00 AM MG Oral Medic [...] ID Covered Covered Policy Plan Coverage type green party ID green party's Truong Inform ation relationship to truong BLUE CROSS [id number] SP [id number] [facility] MED[facility] [id number] SP [id number] BLUE CROSS [id number] SP [id number] [facility] DUAL [id number] SP [id number] COMPLETE EMPIRE BC/BS [id number] MEDICAID OF [id number] [place] [id number] 1 [id number] PART B [facility] Medicaid of Supplemental 0 Self 0 [place] Policy [facility] Individual 0 Self 0 Behavioral Policy [facility] [id number] SP [id number] HEALTHCARE (MEDICARE) IME MEDICARE [id number] SP [id number] [facility] OF [id number] SP [id number] [facility] MEDICAID [id number] SP [id number] Medicaid of Supplemental 0 Self 0 [place] Policy BC[place] of [place] Individual 0 Self 0 [place] Policy [place] of Supplemental 0 Self 0 [place] Policy [place] Individual 0 Self 0 [place] Policy BLUE CROSS O [id number] 01 [id number] MEDIBLUE OP O [id number] 01 [id number] 01 [id number] 01 [id number] A Medicaid of Supplemental 0 Self 0 [place] Policy [place] Individual 0 Self 0 [place] Policy BLUE CROSS [id number] SP [id number] SENIOR PLAN BLUE CROSS [id number] SP [id number] SENIOR PLAN BC HMO [id number] SP [id number] BCBS of [place] [facility] Policy 0 Self 0 [place] Medicare Part Medicare 0 Self 0 B of [place] Primary - [place] BC/BS Medicare Part Medicare 0 Self 0 [place] of [place] Primary - [place] BC/BS BC INDEMNITY [id number] SP [id number] MEDICARE [id number] SP [id number] MEDICAID [id number] SP [id number] MEDICARE [id number] SP [id number] MEDICARE [id number] SP [id number] A Problems, Conditions, and Diagnoses Code Display [...] J ohn's (severe) (SEVERE) EST Medical, PC) [id number] Human Hiv Infection Problem 05/15/2018 [place] immunodeficiency 12:00:00 AM ([place] virus infection EST [place] Medici [place] (disorder) and Infectious Disease) 97563335 Human Hiv Infection Problem 05/15/2018 [place] immunodeficiency 12:00:00 AM ([place] virus infection [place] Medic[place] (disorder) and Infectious Disease) 78676939 Human Hiv Infection Problem 05/15/2018 [place] immunodeficiency 12:00:00 AM ([place] virus infection [place] Medic[place] (disorder) and Infectious Disease) 41303226 Human Hiv Infection Problem 05/15/2018 [place] immunodeficiency 12:00:00 AM ([place] virus infection [place] Medic[place] (disorder) and Infectious Disease) 54366123 Human Hiv Infection Problem 05/15/2018 [place] immunodeficiency 12:00:00 AM ([place] virus infection [place] Medic[place] (disorder) and Infectious Disease) 09455413 Human Hiv Infection Problem 05/15/2018 [place] immunodeficiency 12:00:00 AM ([place] virus infection [place] Medic[place] (disorder) and Infectious Disease) 95630878 Human Hiv Infection Problem 05/15/2018 [place] immunodeficiency 12:00:00 AM ([place] virus infection [place] Medici [place] (disorder) and Infectious Disease) 042. 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 Immunodeficiency Immunodeficiency 12:00:00 AM ( [facility] Virus [hiv] Virus [hiv] [facility] Medicine and Infectious Disease) 692.9 Contct Dermatit&oth Contct Dermatit&oth Problem 012 MERRY Eczema-Uns Caus Eczema-Uns Caus 12:00:00 AM ([facility] Medicine and Infectious Disease) 31780692 Diabetes mellitus Diabetes Mellitus Problem 10/07/2011 MERRY (disorder) 12:00:00 AM ([facility] Medicine and Infectious Disease) [id number] Chronic kidney Chronic Renal Problem 10/07/2011 [place] disease (disorder) Failure 12:00:00 AM ([facility] Medicine and Infectious Disease) 042. 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/2011 [place] Immunodeficiency Immunodeficiency 12:00:00 AM ( [facility] Virus [hiv] Virus [hiv] [facility] Medicine and Infectious Disease) 692.9 Contct Dermatit&oth Contct Dermatit&oth Problem 012 [place] Eczema-Uns Caus Eczema-Uns Caus 12:00:00 AM ([facility] Medicine and Infectious Disease) [id number] Chronic kidney Chronic Renal Problem 10/07/2011 [place] disease (disorder) Failure 12:00:00 AM ([facility] Medicine and Infectious Disease) 15052338 Diabetes mellitus Diabetes Mellitus Problem 10/07/2011 [place] (disorder) 12:00:00 AM ([facility] Medicine and Infectious Disease) 042. 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/2011 [place] Immunodeficiency Immunodeficiency 12:00:00 AM ( [facility] Virus [hiv] Virus [hiv] [facility] Medicine and Infectious Disease) 692.9 Contct Dermatit&oth Contct Dermatit&oth Problem 012 MERRY Eczema-Uns Caus Eczema-Uns Caus 12:00:00 AM ([facility] Medicine and Infectious Disease) [id number] Chronic kidney Chronic Renal Problem 10/07/2011 [place] disease (disorder) Failure 12:00:00 AM ([facility] Medicine and Infectious Disease) 90637002 Diabetes mellitus Diabetes Mellitus Problem 10/07/2011 M[place] (disorder) 12:00:00 AM ([facility] Medicine and Infectious Disease) 042. 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 Immunodeficiency Immunodeficiency 12:00:00 AM ( [facility] Virus [hiv] Virus [hiv] [facility] Medicine and Infectious Disease) 692.9 Contct Dermatit&oth Contct Dermatit&oth Problem 012 [place] Eczema-Uns Caus Eczema-Uns Caus 12:00:00 AM ([facility] Medicine and Infectious Disease) [id number] Chronic kidney Chronic Renal Problem 10/07/2011 [place] disease (disorder) Failure 12:00:00 AM ([facility] Medicine and Infectious Disease) 45944773 Diabetes mellitus Diabetes Mellitus Problem 10/07/2011 M[place] (disorder) 12:00:00 AM ([facility] Medicine and Infectious Disease) 042. 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 Immunodeficiency Immunodeficiency 12:00:00 AM ( [facility] Virus [hiv] Virus [hiv] [facility] Medicine and Infectious Disease) 692.9 Contct Dermatit&oth Contct Dermatit&oth Problem 012 M[place]Y Eczema-Uns Caus Eczema-Uns Caus 12:00:00 AM ([facility] Medicine and Infectious Disease) [id number] Chronic kidney Chronic Renal Problem 10/07/2011 [place] disease (disorder) Failure 12:00:00 AM ([facility] Medicine and Infectious Disease) 34400203 Diabetes mellitus Diabetes Mellitus Problem 10/07/2011 MERR[place] (disorder) 12:00:00 AM ([facility] Medicine and Infectious Disease) 042. 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 Immunodeficiency Immunodeficiency 12:00:00 AM ( [facility] Virus [hiv] Virus [hiv] [facility] Medicine and Infectious Disease) 692.9 Contct Dermatit&oth Contct Dermatit&oth Problem 012 MERRY Eczema-Uns Caus Eczema-Uns Caus 12:00:00 AM ([facility] Medicine and Infectious Disease) [id number] Chronic kidney Chronic Renal Problem 10/07/2011 [place] disease (disorder) Failure 12:00:00 AM ([facility] Medicine and Infectious Disease) [id number] Diabetes mellitus Diabetes Mellitus Problem 10/07/2011 [place] (disorder) 12:00:00 AM ([facility] Medicine and Infectious Disease) 042. 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/2011 [place] Immunodeficiency Immunodeficiency 12:00:00 AM ( [facility] Virus [hiv] [facility]hiv[facility]) 692.9 Contct Dermatit&oth Contct Dermatit&oth Problem 012 [place] Eczema-Uns Caus Eczema-Uns Caus 12:00:00 AM [facility] [id number] Chronic kidney Chronic Renal Problem 10/07/2011 [facility] Y disease (disorder) Failure 12:00:00 AM [facility] [id number] Diabetes mellitus Diabetes Mellitus Problem 10/07/2011 [place] (disorder) 12:00:00 AM ([facility] Medicine and Infectious Disease) E11.9 Type 2 diabetes TYPE 2 DIABETES Diagnosis 09/27/2019 Amie Fountain mellitus without MELLITUS WITHOUT 11:18:00 AM M edical complications COMPLICATIONS EDT Center J06.9 Acute upper ACUTE UPPER Diagnosis 09/27/2019 [facility] respiratory RESPIRATORY 11:18:00 AM Medical infection, INFECTION, EDT Center unspecified UNSPECIFIED R05 Cough COUGH Diagnosis 09/27/2019 [facility] 11:18:00 AM Medical EDT Center Surgeries/Procedures Procedure [...] PC) Reported medical Reported medical history 02/13/2020 [place] history - DM, HTN, - DM, HTN, HIV, CKD 12:00:00 ( [facility] HIV, CKD AM EDT Medicine and Infectious Disease) Surgical / procedural Surgical / procedural 02/13/2020 [place] history - (R) history - (R) Carotid [facility] EDT Medicine and Endarterectomy Infectious Disease) Clinical summary 01/28/2020 M[place] provided to patient 12:00:00 ([facility] AM EDT - Medicine and 01/28/2020 Infectious 12:00:00 Disease) AM EDT continue current 01/28/2020 [place] medication 12:00:00 ([facility] Y AM EDT - Medicine and 01/28/2020 Infectious 12:00:00 Disease) AM EDT Reported medical Reported medical history 12/27/2019 [place] history - DM, HTN, - DM, HTN, HIV, CKD 12:00:00 ( [facility] HIV, CKD AM EDT Medicine and Infectious Disease) Surgical / procedural Surgical / procedural 12/27/2019 [place] history - (R) history - (R) Carotid 12:00:00 ([facility] Carotid Endarterectomy AM EDT Medicine and Endarterectomy Infectious Disease) Clinical summary 12/27/2019 [place] provided to patient 12:00:[facility] - Medicine and 12/27/2019 Infectious 12:00:00 Disease) AM EDT continue current 12/27/2019 [place] medication 12:00:00 ([facility] N AM EDT - Medicine and 12/27/2019 Infectious 12:00:00 Disease) AM EDT Reported medical Reported medical history 11/22/2019 [place] history - DM, HTN, - DM, HTN, HIV, CKD 12:00:00 ( [facility] HIV, CKD AM EDT Medicine and Infectious Disease) Surgical / procedural Surgical / procedural 11/22/2019 [place] history - (R) history - (R) Carotid 12:00:00 ([facility] Carotid Endarterectomy AM EDT Medicine and Endarterectomy Infectious Disease) Clinical summary 11/22/2019 MERRY provided to patient 12:00:00 ([facility] AM EDT - Medicine and 11/22/2019 Infectious 12:00:00 Disease) AM EDT continue current 11/22/2019 [place] medication 12:00:00 ([facility] EDT - Medicine and 11/22/2019 Infectious 12:00:00 Disease) AM EDT COLLECTION VENOUS Routine 11/22/2019 [place] BLOOD VENIPUNCTURE Venipunctfingerheel Stick 12:00:00 ([facility] AM EDT Medicine and Infectious Disease) Reported medical Reported medical history 09/14/2019 MERRY history - DM, HTN, - DM, HTN, HIV, CKD 12:00:00 ( [facility] HIV, CKD AM EDT Medicine and Infectious Disease) Surgical / procedural Surgical / procedural 09/14/2019 [place] history - (R) history - (R) Carotid 12:00:00 ([facility] Carotid Endarterectomy AM EDT Medicine and Endarterectomy Infectious Disease) Clinical summary 09/14/2019 MERRY provided to patient 12:00:00 ([facility] AM EDT - Medicine and 09/14/2019 Infectious [...] - DM, HTN, HIV, CKD 12:00:00 ( [facility] HIV, CKD AM EDT Medicine and Infectious Disease) Surgical / procedural Surgical / procedural 02/22/2019 [place] history - (R) history - (R) Carotid 12:00:00 ([facility] Carotid Endarterectomy AM EDT Medicine and Endarterectomy Infectious Disease) Reported medical Reported medical history 02/22/2019 [place] history - DM, HTN, - DM, HTN, HIV, CKD 12:00:00 ( [facility] HIV, CKD AM EDT Medicine and Infectious Disease) Surgical / procedural Surgical / procedural 02/22/2019 [place] history - (R) history - (R) Carotid 12:00:00 ([facility] Carotid Endarterectomy AM EDT Medicine and Endarterectomy Infectious Disease) Clinical summary 02/22/2019 MERRY provided to patient 12:00:00 (John[facility] AM EDT - Medicine and 02/22/2019 Infectious 12:00:00 Disease) AM EDT Education (procedure) 02/22/2019 [place] 12:00:00 ([facility] Y AM EDT - Medicine and 02/22/2019 Infectious 12:00:00 Disease) AM EDT continue current 02/22/2019 [place] medication 12:00:00 ([facility] N Y AM EDT - Medicine and [...] 12:00:00 Disease) AM EDT continue current 12/14/2018 [place] medication 12:00:00 ([facility] N Y AM EDT - Medicine and 12/14/2018 Infectious 12:00:00 Disease) AM EDT COLLECTION VENOUS Routine 12/14/2018 [place] BLOOD VENIPUNCTURE Venipunctfingerheel Stick 12:00:00 ([facility] AM EDT Medicine and Infectious Disease) Documentation [...] EST PC) Results ID Date Data Source [id number] 03/16/2020 12:00:00 AM EDT [facility] ([facility] Name Value Range Interpretation Code Description Data Supporting Source(s) Document(s ) PTH, Intact 11 pg/mL Below low normal [facility] ([facility]) ID Date Data Source [id number] 03/16/2020 12:00:00 AM EDT [facility] ([facility]) Name Value Range Interpretation Code Description Data Supporting Source(s) Document(s ) Ferritin, 376 ng/mL Normal (applies to [facility] (St Serum non-numeric Nadia's results) [facility], ) ID Date Data Source [id number] 03/16/2020 12:00:00 AM EDT [facility] ([facility]) Name Value Range Interpretation Description Data Sup porting Code Source(s) Document(s ) Deprecated 3.1 mg/dL Normal (applies to [facility] (St Phosphorus non-numeric Nadia's [Mass/time] in results) [facility], ) 24 hour Urine ID Date Data Source [id number] 03/16/2020 12:00:00 AM EDT [facility] ([facility]) Name Value Range Interpretation Description Data Sup porting Code Source(s) Document(s ) Vitamin D, 30.3 Normal ([facility] (St 25-Hydroxy ng/mL non-numeric Nadia's results) [facility], ) ID Date Data Source [id number] 03/16/2020 12:00:00 AM EDT [facility] ([facility], ) Name Value Range Interpretation Code Description Data Supporting Source(s) Document(s ) Protein,To 20.9 mg/dL Normal ([facility] (S t [place],Urine non-numeric Nadia's results) [facility]) Creatinine 83.2 mg/dL Normal (applies to [facility] (S t , Urine non-numeric Nadia's results) [facility], ) Protein/Cr 251 mg/g Above high normal [facility] (St eat Ratio creat [facility], ) ID Date Data Source [id number] 03/16/2020 12:00:00 AM EDT [facility] ([facility], ) Name Value Range Interpretation Description Data Sup porting Code Source(s) Document(s ) Iron 333 ug/dL Normal (applies to [facility] (St Bind.Cap.(TIBC non-numeric Nadia's ) results) [facility], ) Iron 78 ug/dL Normal (applies to [facility] (St [Mass/volume] non-numeric Nadia's in Serum or results) [facility], ) Plasma UIBC 255 ug/dL Normal (applies to [facility] (St non-numeric Nadia's results) [facility], ) Iron 23 % Normal (applies to [facility] (St saturation non-numeric Nadia's [Mass results) [facility], [facility]) Fraction] in Serum or Plasma ID Date Data Source [id number] 03/16/2020 12:00:00 AM EDT [facility] ([facility], ) Name Value Range Interpretation Description Data [...] by Light microscopy ID Date Data Source [id number] 03/16/2020 12:00:00 AM EDT [facility] ([facility], ) Name Value Range Interpretation Description Data [...] results) Medical, ) ID Date Data Source [id number] 03/16/2020 12:00:00 AM EDT [facility] ([facility], ) Name Value Range Interpretation Description Data [...] MEDGE N (St Am mL/min/1 Nadia's .73 [facility], ) Potassium 4.6 Normal (applies [facility] (St [...] Serum or Plasma ID Date Data Source [id number] 03/16/2020 12:00:00 AM EDT [facility] ([facility]) Name Value Range Interpretation Description Data Sup porting Code Source(s) Document(s ) Leukocytes 7.8 Normal (applies [facility] (St [#/volume] in x10E3/uL to non-numeric Nadia's Blood by results) [facility], ) Automated count Erythrocytes 4.20 Normal (applies [facility] (St [#/volume] in x10E6/uL to non-numeric Nadia's Blood by results) [facility], ) Automated count Hemoglobin 13.5 Normal (applies [facility] (St [Mass/volume] in g/dL to non-numeric Nadia's Blood results) [facility], ) Hematocrit 40.3 % Normal (applies [facility] (St [Volume to non-numeric Nadia's Fraction] of results) [facility], ) Blood by Automated count MCV 96 fL Normal (applies [facility] (St to non-numeric Nadia's results) [facility], ) MCHC 33.5 Normal (applies [facility] (St g/dL to non-numeric Nadia's results) [facility], ) MCH 32.1 pg Normal (applies [facility] (St to non-numeric Nadia's results) [facility], ) RDW 11.8 % Normal (applies [facility] (St to non-numeric Nadia's results) [facility], ) Neutrophils [#] 50 % Normal (applies [facility] ( St in Body fluid by to non-numeric Nadia's Manual count results) [facility], ) Platelets 210 Normal (applies [facility] (St [#/area] in x10E3/uL to non-numeric Nadia's Blood by results) [facility], ) Microscopy high power field Lymphs 37 % Normal (applies [facility] (St to non-numeric Nadia's results) [facility], ) Monocytes 8 % Normal (applies [facility] (St [#/volume] in to non-numeric Nadia's Cord blood results) [facility], ) Eos 5 % Normal (applies [facility] (St to non-numeric Nadia's results) [facility], ) Basos 0 % Normal (applies [facility] (St to non-numeric Nadia's results) [facility], ) Neutrophils 3.9 Normal (applies [facility] (St (Absolute) x10E3/uL to non-numeric Nadia's results) [facility], ) Monocytes(Absolu 0.6 Normal (applies [facility] (St te) x10E3/uL to non-numeric Nadia's results) [facility], ) Lymphs 2.9 Normal (applies [facility] (St (Absolute) x10E3/uL to non-numeric Nadia's results) [facility], ) Immature 0 % Normal (applies [facility] (St Granulocytes to non-numeric Nadia's results) [facility], ) Baso (Absolute) 0.0 Normal (applies [facility] ( St x10E3/uL to non-numeric Nadia's results) [facility], ) Eos (Absolute) 0.4 Normal (applies [facility] (S t x10E3/uL to non-numeric Nadia's results) [facility], ) Immature Grans 0.0 Normal (applies [facility] (S t (Abs) x10E3/uL to non-numeric Nadia's results) [facility], ) ID Date Data Source [id number] 03/16/2020 12:00:00 AM EDT [facility] ([facility], ) Name Value Range Interpretation Code Description Data Supporting Source(s) Document(s ) PTH, Intact 11 pg/mL Below low normal [facility] ([facility], ) ID Date Data Source [id number] 03/16/2020 12:00:00 AM EDT [facility] ([facility], ) Name Value Range Interpretation Code Description Data Supporting Source(s) Document(s ) Ferritin, 376 ng/mL Normal (applies to [facility] (St Serum non-numeric Nadia's results) [facility], ) ID Date Data Source [id number] 03/16/2020 12:00:00 AM EDT [facility] ([facility], ) Name Value Range Interpretation Description Data Sup porting Code Source(s) Document(s ) Deprecated 3.1 mg/dL Normal (applies to [facility] (St Phosphorus non-numeric Nadia's [Mass/time] in results) [facility], ) 24 hour Urine ID Date Data Source [id number] 03/16/2020 12:00:00 AM EDT [facility] ([facility], ) Name Value Range Interpretation Description Data Sup porting Code Source(s) Document(s ) Vitamin D, 30.3 Normal (applies to [facility] (St 25-Hydroxy ng/mL non-numeric Nadia's results) [facility]) ID Date Data Source [id number] 03/16/2020 12:00:00 AM EDT [facility] ([facility], ) Name Value Range Interpretation Code Description Data Supporting Source(s) Document(s ) Creatinine 83.2 mg/dL Normal (applies to [facility] (S t , Urine non-numeric Nadia's results) Medical, ) Protein,To 20.9 mg/dL Normal (applies to [facility] (S [place],Urine non-numeric Nadia's results) Medical, ) Protein/Cr 251 mg/g Above high normal [facility] (St eat Ratio creat [facility], ) ID Date Data Source [id number] 03/16/2020 12:00:00 AM EDT [facility] ([facility], ) Name Value Range Interpretation Description Data Sup porting Code Source(s) Document(s ) Iron 333 ug/dL Normal (applies to [facility] (St Bind.Cap.(TIBC non-numeric Nadia's ) results) Medical, ) UIBC 255 ug/dL Normal (applies to [facility] (St non-numeric Nadia's results) [facility], ) Iron 23 % Normal (applies to [facility] (St saturation non-numeric Nadia's [Mass results) Medical, ) Fraction] in Serum or Plasma Iron 78 ug/dL Normal (applies to [facility] (St [Mass/volume] non-numeric Nadia's in Serum or results) [facility], ) Plasma ID Date Data Source [id number] 03/16/2020 12:00:00 AM EDT [facility] ([facility], ) Name Value Range Interpretation Description Data Sup porting Code Source(s) Document(s ) WBC 0-5 Normal (applies [facility] (St to non-numeric Ndaia's results) Medical, ) RBC None seen Normal [...] by Light microscopy ID Date Data Source [id number] 03/16/2020 12:00:00 AM EDT [facility] ([facility] [...] results) Medical, PC) ID Date Data Source [id number] 03/16/2020 12:00:00 AM EDT [facility] ([facility] [...] Below low normal MEDGE N (St mL/min/[address], ) eGFR If NonAfricn 28 Below low normal MEDGE N (St Am mL/min/[address], ) Sodium 137 Normal (applies MEDGEN [...] to non-numeric Nadia's Serum or Plasma results) [facility], ) Alkaline 49 IU/L Normal (applies MEDGEN [...] Serum or Plasma ID Date Data Source [id number] 03/16/2020 12:00:00 AM EDT [facility] ([facility], ) Name Value Range Interpretation Description Data Sup porting Code Source(s) Document(s ) Leukocytes 7.8 Normal (applies [facility] (St [#/volume] in x10E3/uL to non-numeric Nadia's Blood by results) Medical, ) Automated count Erythrocytes 4.20 Normal (applies [facility] (St [#/volume] in x10E6/uL to non-numeric Nadia's Blood by results) [facility], ) Automated count Hemoglobin 13.5 Normal (applies [facility] (St [Mass/volume] in g/dL to non-numeric Nadia's Blood results) [facility], ) Hematocrit 40.3 % Normal (applies [facility] (St [Volume to non-numeric Nadia's Fraction] of results) [facility], ) Blood by Automated count MCHC 33.5 Normal (applies [facility] (St g/dL to non-numeric Nadia's results) Medical, ) MCH 32.1 pg Normal (applies [facility] (St to non-numeric Nadia's results) [facility], ) MCV 96 fL Normal (applies [facility] (St to non-numeric Nadia's results) [facility], ) RDW 11.8 % Normal (applies [facility] (St to non-numeric Nadia's results) [facility], ) Platelets 210 Normal (applies [facility] (St [#/area] in x10E3/uL to non-numeric Nadia's Blood by results) [facility], ) Microscopy high power field Neutrophils [#] 50 % Normal (applies [facility] ( St in Body fluid by to non-numeric Nadia's Manual count results) Medical, ) Lymphs 37 % Normal (applies [facility] (St to non-numeric Nadia's results) Medical, ) Monocytes 8 % Normal (applies [facility] (St [#/volume] in to non-numeric Nadia's Cord blood results) [facility], ) Eos 5 % Normal (applies [facility] (St to non-numeric Nadia's results) [facility], ) Basos 0 % Normal (applies [facility] (St to non-numeric Nadia's results) Medical, ) Monocytes(Absolu 0.6 Normal (applies [facility] (St te) x10E3/uL to non-numeric Nadia's results) [facility], ) Neutrophils 3.9 Normal (applies [facility] (St (Absolute) x10E3/uL to non-numeric Nadia's results) [facility], ) Lymphs 2.9 Normal (applies [facility] (St (Absolute) x10E3/uL to non-numeric Nadia's results) [facility], ) Eos (Absolute) 0.4 Normal (applies [facility] (S t x10E3/uL to non-numeric Nadia's results) [facility], ) Baso (Absolute) 0.0 Normal (applies MEDGEN ( St x10E3/uL to non-numeric Nadia's results) [facility], ) Immature 0 % Normal (applies [facility] (St Granulocytes to non-numeric Nadia's results) [facility], ) Immature Grans 0.0 Normal (applies [facility] (S t (Abs) x10E3/uL to non-numeric Nadia's results) [facility], ) ID Date Data Source [id number] 02/01/2020 02:18:00 PM EDT [facility] Name Value Range Interpretation Description Data Sup porting Code Source(s) Document(s ) SARS [facility] coronavirus 2 RNA This lab was ordered by [facility] and reported by [facility]. ID Date Data Source [id number] 01/29/2020 09:27:00 AM EDT MERRY ([facility] Medicine and Infectious Disease) Name Value Range Interpretation Description Data Sup porting Code Source(s) Document(s ) HIV 1 RNA <20 Above high HIV 1 RNA, QN MERRY [#/volume] Detected normal PCR ([facility] (viral load) in copies/mL n [place] Serum or Plasma Medicine and by Probe and Infectious target Disease) amplification method HIV 1 RNA [Log <1.30 Above high HIV 1 RNA, QN MERRY #/volume] Detected normal PCR ([facility] (viral load) in log_copies n MT Plasma by Probe /mL Medicine and and target Infectious amplification Disease) method Note: HIV-1 RNA was detected be low 20 copies/mL. Viral nucleic acid detected below this level cannot be colt tified by the assay. The test was performed using Real Time Polym erase Chain Reaction. Reportable Range: 20 copies/mL to 10,000 ,000 copies/mL (1.30-7.00 Log copies/mL). ID Date Data Source [id number] 01/29/2020 09:27:00 AM EDT MERRY ([facility] Medicine and Infectious Disease) Name Value Range Interpretation Description Data Sup porting Code Source(s) Document(s ) CD3 cells/100 75 Percent Normal (applies % CD3 MERRY cells in Blood to non-numeric ([facility] results) n [place] Medicine and Infectious Disease) CD19 cells 260 Normal (applies ABSOLUTE CD19 MERRY [#/volume] in Cells/mcL to non-numeric CELLS ([facility] a Blood results) n [place] Medicine and Infectious Disease) CD3-CD16+CD56+ 17 Percent Normal (applies % CD16+CD56+ [address] (Natural to non-numeric ([facility] killer) results) [facility] cells/100 Medicine and cells in Blood Infectious Disease) CD19 cells/100 7 Percent Normal (applies % CD19 MERRY cells in Blood to non-numeric ([facility] results) [facility] Medicine and Infectious Disease) CD3 cells 2734 Normal (applies ABSOLUTE CD3 MERRY [#/volume] in Cells/mcL to non-numeric CELLS ([facility] a Blood results) n [place] Medicine and Infectious Disease) CD3+CD4+ (T4 0.22 Ratio Below low normal CD4/CD8 RAT[address] helper) ([facility] cells/CD3+CD8+ n [place] (T8 suppressor Medicine and cells) cells Infectious [# Ratio] in Disease) Blood Lymphocytes 3650 Normal (applies ABSOLUTE MERRY [#/volume] in Cells/mcL to non-numeric LYMPHOCYTES ([facility]uep Blood by results) n [place] Automated Medicine and count Infectious Disease) Note: The Lymphocyte Subset ref erence ranges were implemented on April 08, 2016. CD3+CD4+ (T4 13 Percent Below low %CD4 MERRY helper) cells/100 normal ([facility] cells in Blood Medicine and Infectious Disease) CD3-CD16+CD56+ 630 Cells/mcL Normal ABSOLUTE MERRY (Natural killer) (applies to CD16+CD56+ ([facility] cells [#/volume] non-numeric CELLS Medicine an d in Blood results) Infectious Disease) CD3+CD8+ (T8 2217 Cells/mcL Above high ABSOLUTE CD8 MERRY suppressor cells) normal CELLS ([facility] cells [#/volume] Medicine and in Blood Infectious Disease) Cells.CD3+CD4+CD8+ 18 Cells/mcL Normal ABS MERRY (Double positive) (applies to CD3+CD4+CD8+ ([facility] [place] [#/volume] in non-numeric CELLS Medicine and Blood results) Infectious Disease) Cells.CD3+CD4+CD8+ 0 Percent Normal % CD3+CD4+CD8+ [place] (Double (applies to ([facility] positive)/100 non-numeric Medicine and cells in Blood results) Infectious Dise ase) CD3+CD4+ (T4 479 Cells/mcL Below low ABSOLUTE CD4 MERRY helper) cells normal CELLS ([facility] [#/volume] in Medicine and Blood Infectious Disease) CD3+CD8+ (T8 61 Percent Above high %CD8 MERRY suppressor cells) normal ([facility] [place] cells/100 cells in Medicine an d Blood Infectious Disease) % CD3+CD4-CD8- 0 Percent Normal % CD3+CD4-CD8- MERRY (applies to ([facility] non-numeric Medicine and results) Infectious Disease) ABS CD3+CD4-CD8- 11 Cells/mcL Normal ABS MERRY CELLS (applies to CD3+CD4-CD8- ([facility] Y non-numeric CELLS Medicine and results) Infectious Disease) % 6 Percent Normal % MERRY CD3+/(CD56+CD16+) (applies to CD3+/(CD56+CD16 ([facility] non-numeric +) Medicine and results) Infectious Disease) ABS 232 Cells/mcL Normal ABS MERRY CD3+/(CD56+CD16+) (applies to CD3+/(CD56+CD16 ([facility] non-numeric +) Medicine and results) Infectious Disease) ID Date Data Source [id number] 01/29/2020 09:27:00 AM EDT MERRY ([facility] Medicine and Infectious Disease) Name Value Range Interpretation Description Data Sup porting Code Source(s) Document(s ) Hemoglobin 7.7 Above high normal HEMOGLOBIN A1C [place] A1c/Hemoglobi %_of_tot ([facility] n.total in al_Hgb [place] Medicine Blood and Infectious Disease) Note: For [...] f or children. ID Date Data Source [id number] 01/29/2020 09:27:00 AM EDT MERRY ([facility] Medicine and Infectious Disease) Name Value Range Interpretation Description Data Source(s ) Supporting Code Document(s ) Cell See Note Normal (applies to DIFFERENTIAL MERRY Fractions/ non-numeric ([facility] Differenti [facility]) [place] Medicine al and Infectious [Interpret Disease) ation] in Blood Note: An instrument differentia l was performed. Leukocytes 7.9 Thousand/uL Normal (applies WBC [place] [#/volume] in to non-numeric ([facility] Blood by Automated results) Medicine an d count Infectious Disease) Hematocrit [Volume 39.4 % Normal (applies HEMATOCRIT GREE NWAY Fraction] of Blood to non-numeric ([facility] by Automated count results) Medicine an d Infectious Disease) Monocytes/100 7.9 % Normal (applies MONOCYTES,% MERRY leukocytes in to non-numeric ([facility] Blood by Automated results) Medicine an d count Infectious Disease) Eosinophils/100 5.0 % Normal (applies EOSINOPHILS,% GREE NWAY leukocytes in to non-numeric ([facility] Blood by Automated results) Medicine an d count Infectious Disease) Basophils 47 cells/uL Normal (applies BASOPHILS,ABSO GREENWA Y [#/volume] in to non-numeric LUTE ([facility] Blood by Automated results) Medicine an d count Infectious Disease) Eosinophils 395 cells/uL Normal (applies EOSINOPHILS,AB GREE NWAY [#/volume] in to non-numeric SOLUTE ([facility] Blood by Automated results) Medicine an d count Infectious Disease) Basophils/100 0.6 % Normal (applies BASOPHILS,% MERRY leukocytes in to non-numeric ([facility] Blood by Automated results) Medicine an d count Infectious Disease) Hemoglobin 13.3 g/dL Normal (applies HEMOGLOBIN MERRY [Mass/volume] in to non-numeric ([facility] Blood results) Medicine and Infectious Disease) Lymphocytes 3239 cells/uL Normal (applies LYMPHOCYTES,AB GRE ENWAY [#/volume] in to non-numeric SOLUTE ([facility] Blood by Automated results) Medicine an d count Infectious Disease) Lymphocytes/100 41.0 % Normal (applies TOTAL MERRY leukocytes in to non-numeric LYMPHOCYTES,% ([facility] Blood by Automated results) Medicine an d count Infectious Disease) Monocytes 624 cells/uL Normal (applies MONOCYTES,ABSO GREENW AY [#/volume] in to non-numeric LUTE ([facility] Blood by Automated results) Medicine an d count Infectious Disease) Neutrophils/100 45.5 % Normal (applies TOTAL MERRY leukocytes in to non-numeric NEUTROPHILS,% ([facility] Blood by Automated results) Medicine an d count Infectious Disease) Platelets 186 Thousand/uL Normal (applies PLATELET COUNT GRE ENWAY [#/volume] in to non-numeric ([facility] Blood by Automated results) Medicine an d count Infectious Disease) Neutrophils 3595 cells/uL Normal (applies NEUTROPHILS,AB GRE ENWAY [#/volume] in to non-numeric SOLUTE ([facility] Blood by Automated results) Medicine an d count Infectious Disease) Platelet mean 10.4 fL Normal (applies MPV MERRY volume [Entitic to non-numeric ([facility] volume] in Blood results) Medicine and by Sadaf Infectious Disease) Erythrocyte mean 33.1 pg Above high MCH MERRY corpuscular normal ([facility] hemoglobin Medicine and [Entitic mass] by Infectious Automated count Disease) Erythrocyte mean 98.0 fL Normal (applies MCV GREENWA Y corpuscular volume to non-numeric ([facility] [Entitic volume] results) Medicine and by Automated count Infectious Disease) Erythrocyte 12.4 % Normal (applies RDW MERRY distribution width to non-numeric ([facility] [Ratio] by results) Medicine and Automated count Infectious Disease) Erythrocyte mean 33.8 g/dL Normal (applies MCHC GREENWA Y corpuscular to non-numeric ([facility] hemoglobin results) Medicine and concentration Infectious [Mass/volume] by Disease) Automated count Erythrocytes 4.02 Million/uL Below low normal RBC GREE NWAY [#/volume] in ([facility] Blood by Automated Medicine an d count Infectious Disease) ID Date Data Source [id number] 01/29/2020 09:27:00 AM EDT MERRY ([facility] Name Value Range Interpretation Description Data Sup porting Code Source(s) Document(s ) Alanine 19 U/L Normal (applies ALT MERRY aminotransferase to non-numeric ([facility] [Enzymatic results) n [place] activity/volume] Medicine and in Serum or Plasma Infectious Disease) Albumin 4.0 Normal (applies ALBUMIN MERRY [Mass/volume] in g/dL to non-numeric ([facility] Serum or Plasma results) [facility] Medicine and Infectious Disease) Aspartate 20 U/L Normal (applies AST MERRY aminotransferase to non-numeric ([facility] [Enzymatic results) n [place] activity/volume] Medicine and in Serum or Plasma Infectious Disease) Albumin/Globulin 1.3 Normal (applies ALBUMIN/GLOBU GRE ENWAY [Mass Ratio] in (calc) to non-numeric KURTIS RATIO ([facility] Serum or Plasma results) [facility] Medicine and Infectious Disease) Carbon dioxide, 30 Normal (applies CARBON MERRY total mmol/L to non-numeric DIOXIDE ([facility] [Moles/volume] in results) [facility] Serum or Plasma Medicine and Infectious Disease) Calcium 10.0 Normal (applies CALCIUM MERRY [Mass/volume] in mg/dL to non-numeric ([facility] Serum or Plasma results) [facility] Medicine and Infectious Disease) Bilirubin.total 0.4 Normal (applies BILIRUBIN,TOT GREE NWAY [Mass/volume] in mg/dL to non-numeric AL ([facility] Serum or Plasma results) [facility] Medicine and Infectious Disease) Chloride 100 Normal (applies CHLORIDE MERRY [Moles/volume] in mmol/L to non-numeric ([facility] Serum or Plasma results) [facility] Medicine and Infectious Disease) Glomerular 33 Below low normal EGFR NON AFR MERRY filtration mL/min/ BANGLADESHI ([facility] rate/1.73 sq 1.73m2 n [place] M.predicted Medicine and [Volume Rate/Area] Infectious in Serum or Plasma Disease) by Creatinine-based formula (MDRD) Globulin 3.2 Normal (applies GLOBULIN MERRY [Mass/volume] in g/dL_(c to non-numeric ([facility] Serum by alc) results) n MT calculation Medicine and Infectious Disease) Creatinine 1.87 Above high CREATININE MERRY [Mass/volume] in mg/dL normal ([facility] Serum or Plasma [facility] Medicine and Infectious Disease) Note: The upper reference limit for Creatinine is approximately 13% higher for people identified as - Sammarinese. Sodium 139 mmol/L Normal (applies SODIUM MERRY [Moles/volume] in to non-numeric ([facility] Medicine and Infectious Disease) Protein 7.2 g/dL Normal (applies PROTEIN, TOTAL MERRY [Mass/volume] in to non-numeric ([facility] or Plasma results) Medicine and Infectious Disease) Glomerular 38 Below low normal EGFR [place] filtration rate/1.73 mL/min/1.73m BANGLADESHI ([facility] [place] sq M predicted among 2 Medicine and blacks [Volume Infectious Rate/Area] in Serum Disease) or Plasma by Creatinine-based formula (MDRD) Potassium 4.4 mmol/L Normal (applies POTASSIUM MERRY [Moles/volume] in to non-numeric ([facility] or Plasma results) Medicine and Infectious Disease) Urea 12 (calc) Normal (applies BUN/CREATININE MERRY nitrogen/Creatinine to non-numeric RATIO ([facility] [place] [Mass Ratio] in results) Medicine and Serum or Plasma Infectious Disease) Fasting glucose 205 mg/dL Above high normal GLUCOSE,FASTIN G REENWAY [Mass/volume] in G ([facility] Serum or Plasma Medicine and Infectious Disease) Note: For someone without know n diabetes, a glucose value >125 mg/dL indicates that they may have diabe odalis and this should be confirmed with a follow-up test. Urea nitrogen 23 mg/dL Normal (applies UREA NITROGEN GREENW AY [Mass/volume] in to non-numeric ([facility] [place] Serum or Plasma results) Medicine and Infectious Disease) Alkaline 63 U/L Normal (applies ALKALINE MERRY phosphatase to non-numeric PHOSPHATASE ([facility] [place] [Enzymatic results) Medicine and activity/volume] in Infectious Disease) Serum or Plasma ID Date Data Source [id number] 12/16/2019 09:00:00 AM EDT [facility] Name Value Range Interpretation Description Data Sup porting Code Source(s) Document(s ) SARS [facility] CORONAVIRUS 2 RNA This lab was ordered by [facility] and reported by [facility]. ID Date Data Source [id number] 12/13/2019 04:00:00 PM EDT [facility] Name Value Range Interpretation Description Data Sup porting Code Source(s) Document(s ) SARS [facility] CORONAVIRUS 2 RNA This lab was ordered by [facility] and reported by [facility]. ID Date Data Source [id number] 11/22/2019 04:07:00 PM EDT MERRY ([facility] Medicine and Infectious Disease) Name Value Range Interpretation Description Data Sup porting Code Source(s) Document(s ) HIV 1 RNA 38 Above high normal HIV 1 RNA, QN MERRY [#/volume] copies/m PCR ([facility] (viral load) in L n [place] Serum or Plasma Medicine and by Probe and Infectious target Disease) amplification method HIV 1 RNA [Log 1.58 Above high normal HIV 1 RNA, QN [facility] ENWAY #/volume] (viral log_copi PCR ([facility] load) in Plasma es/mL n [place] by Probe and Medicine and target Infectious amplification Disease) method Note: The test was performed u sing Real Time Polymerase Chain Reaction. Reportable Range: 20 c opies/mL to 10,000,000 copies/mL (1.30-7.00 Log copies/mL). ID Date Data Source [id number] 11/22/2019 04:07:00 PM EDT MERRY ([facility] Medicine and Infectious Disease) Name Value Range Interpretation Description Data Sup porting Code Source(s) Document(s ) Hemoglobin 6.0 Above high normal HEMOGLOBIN A1C GREEN AY A1c/Hemoglobi %_of_tot ([facility] n.total in al_Hgb [place] Medicine Blood and Infectious Disease) Note: For [...] diabetes in children. ID Date Data Source [id number] 10/31/2019 12:00:00 AM EDT [facility] Name Value Range Interpretation Code Description Data Lo rce(s) Supporting Document(s ) 2019-nCoV [facility] RNA XXX JACQUI+probe- Imp This lab was ordered by [facility] and reported by [employer] ID Date Data Source [id number] 09/27/2019 12:30:00 PM EDT [facility] Name Value Range Interpretation Code Description Data Lo rce(s) Supporting Document(s ) RESULT [facility] This lab was ordered by [facility] and reported by [facility]. ID Date Data Source [id number] 09/08/2019 08:42:00 AM EST MERRY ([facility] Medicine and Infectious Disease) Name Value Range Interpretation Description Data Sup porting Code Source(s) Document(s ) HIV 1 RNA 26 Above high normal HIV 1 RNA, QN MERRY [#/volume] copies/m PCR ([facility] (viral load) in L [facility] Serum or Plasma Medicine and by Probe and Infectious target Disease) amplification method HIV 1 RNA [Log 1.41 Above high normal HIV 1 RNA, QN GRE ENWAY #/volume] (viral log_copi PCR ([facility] load) in Plasma es/mL [facility] by Probe and Medicine and target Infectious amplification Disease) method Note: The test was performed u sing Real Time Polymerase Chain Reaction. Reportable Range: 20 c opies/mL to 10,000,000 copies/mL (1.30-7.00 Log copies/mL). ID Date Data Source [id number] 09/08/2019 08:42:00 AM EST MERRY ([facility] Medicine and Infectious Disease) Name Value Range Interpretation Description Data Sup porting Code Source(s) Document(s ) CD3+CD4+ (T4 15 Percent Below low normal % CD4 MERRY helper) ([facility] cells/100 [facility] cells in Blood Medicine and Infectious Disease) Lymphocytes 2626 Normal (applies ABSOLUTE MERRY [#/volume] in Cells/mcL to non-numeric LYMPHOCYTES ([facility] Blood by results) [facility] Automated Medicine and count Infectious Disease) CD3+CD4+ (T4 402 Below low normal ABSOLUTE CD4 GREENWA Y helper) cells Cells/mcL CELLS ([facility] [#/volume] in [facility] Blood Medicine and Infectious Disease) CD3+CD8+ (T8 1582 Above high normal ABSOLUTE CD8 GREENW AY suppressor Cells/mcL CELLS ([facility] cells) cells n [place] [#/volume] in Medicine and Blood Infectious Disease) CD3+CD8+ (T8 60 Percent Above high normal % CD8 MERRY suppressor ([facility] cells) n [place] cells/100 Medicine and cells in Blood Infectious Disease) CD3+CD4+ (T4 0.25 Ratio Below low normal CD4/CD8 RATIO [address] helper) ([facility] cells/CD3+CD8+ n [place] (T8 suppressor Medicine and cells) cells Infectious [# Ratio] in Disease) Blood ID Date Data Source [id number] 09/08/2019 08:42:00 AM [employer] ([facility] Medicine and Infectious Disease) Name Value Range Interpretation Description Data Sup porting Code Source(s) Document(s ) Hemoglobin 6.1 Above high normal HEMOGLOBIN A1C GREENW AY A1c/Hemoglobi %_of_tot ([facility] n.total in al_[facility] Medicine Blood and Infectious Disease) Note: [...] diabetes in children. ID Date Data Source [id number] 06/10/2019 08:44:00 AM [employer] ([facility] Medicine and Infectious Disease) Name Value Range Interpretation Description Data Sup porting Code Source(s) Document(s ) HIV 1 RNA 31 Above high normal HIV 1 RNA, QN MERRY [#/volume] copies/m PCR ([facility] (viral load) in [facility] Serum or Plasma Medicine and by Probe and Infectious target Disease) amplification method HIV 1 RNA [Log 1.49 Above high normal HIV 1 RNA, QN GRE ENWAY #/volume] (viral log_copi PCR ([facility] load) in Plasma es/mL [facility] by Probe and Medicine and target Infectious amplification Disease) method Note: The test was performed u sing Real Time Polymerase Chain Reaction. Reportable Range: 20 c opies/mL to 10,000,000 copies/mL (1.30-7.00 Log copies/mL). Duplicate report will be sent to: CHUCHO ZUNIGA N [address] [place] [id number] ID Date Data Source [id number] 06/10/2019 08:44:00 AM EST MERRY ([facility] Medicine and Infectious Disease) Name Value Range Interpretation Description Data Sup porting Code Source(s) Document(s ) CD3+CD4+ (T4 432 Below low normal ABSOLUTE CD4 GREENWA Y helper) cells Cells/mcL CELLS ([facility] [#/volume] in [facility] Blood Medicine and Infectious Disease) CD3+CD4+ (T4 15 Percent Below low normal % CD4 MERRY helper) ([facility] cells/100 [facility] cells in Blood Medicine and Infectious Disease) CD3+CD8+ (T8 60 Percent Above high normal % CD8 MERRY suppressor ([facility] cells) [facility] cells/100 Medicine and cells in Blood Infectious Disease) CD3+CD4+ (T4 0.25 Ratio Below low normal CD4/CD8 RATIO [address] helper) ([facility] cells/CD3+CD8+ n [place] (T8 suppressor Medicine and cells) cells Infectious [# Ratio] in Disease) Blood Lymphocytes 2912 Normal (applies ABSOLUTE MERRY [#/volume] in Cells/mcL to non-numeric LYMPHOCYTES ([facility] Blood by results) [facility] Automated Medicine and count Infectious Disease) CD3+CD8+ (T8 1751 Above high normal ABSOLUTE CD8 GREENW AY suppressor Cells/mcL CELLS ([facility] cells) cells [facility] [#/volume] in Medicine and Blood Infectious Disease) ID Date Data Source [id number] 06/10/2019 08:44:00 AM EST MERRY ([facility] Medicine and Infectious Disease) Name Value Range Interpretation Description Data Sup porting Code Source(s) Document(s ) Hemoglobin 6.7 Above high normal HEMOGLOBIN A1C GREENW AY A1c/Hemoglobi %_of_tot ([facility] n.total in al_Hgb [place] Medicine Blood and Infectious Disease) Note: For [...] f or children. ID Date Data Source [id number] 06/10/2019 08:44:00 AM EST MERRY ([facility] Medicine and Infectious Disease) Name Value Range Interpretation Description Data Source(s ) Supporting Code Document(s ) Cell See Note Normal (applies to DIFFERENTIAL MERRY Fractions/ non-numeric ([facility]) MT Medicine al and Infectious [Interpret Disease) ation] in Blood Note: An instrument differentia l was performed. Leukocytes 7.7 Thousand/uL Normal (applies WBC GREENWA Y [#/volume] in to non-numeric ([facility] Blood by Automated results) Medicine an d count Infectious Disease) Hematocrit [Volume 40.2 % Normal (applies HEMATOCRIT GREE NWAY Fraction] of Blood to non-numeric ([facility] by Automated count results) Medicine an d Infectious Disease) Monocytes/100 9.2 % Normal (applies MONOCYTES,% MERRY leukocytes in to non-numeric ([facility] Blood by Automated results) Medicine an d count Infectious Disease) Eosinophils 547 cells/uL Above high EOSINOPHILS,AB MERRY [#/volume] in normal SOLUTE ([facility] Blood by Automated Medicine an d count Infectious Disease) Basophils/100 0.5 % Normal (applies BASOPHILS,% MERRY leukocytes in to non-numeric ([facility] Blood by Automated results) Medicine an d count Infectious Disease) Basophils 39 cells/uL Normal (applies BASOPHILS,ABSO GREENWA Y [#/volume] in to non-numeric LUTE ([facility] Blood by Automated results) Medicine an d count Infectious Disease) Lymphocytes 3088 cells/uL Normal (applies LYMPHOCYTES,AB GRE ENWAY [#/volume] in to non-numeric SOLUTE ([facility] Blood by Automated results) Medicine an d count Infectious Disease) Eosinophils/100 7.1 % Normal (applies EOSINOPHILS,% GREE NWAY leukocytes in to non-numeric ([facility] Blood by Automated results) Medicine an d count Infectious Disease) Lymphocytes/100 40.1 % Normal (applies TOTAL MERRY leukocytes in to non-numeric LYMPHOCYTES,% ([facility] Blood by Automated results) Medicine an d count Infectious Disease) Hemoglobin 13.6 g/dL Normal (applies HEMOGLOBIN MERRY [Mass/volume] in to non-numeric ([facility] Blood results) Medicine and Infectious Disease) Neutrophils/100 43.1 % Normal (applies TOTAL MERRY leukocytes in to non-numeric NEUTROPHILS,% ([facility] Blood by Automated results) Medicine an d count Infectious Disease) Monocytes 708 cells/uL Normal (applies MONOCYTES,ABSO GREENW AY [#/volume] in to non-numeric LUTE ([facility] Blood by Automated results) Medicine an d count Infectious Disease) Neutrophils 3319 cells/uL Normal (applies NEUTROPHILS,AB GRE ENWAY [#/volume] in to non-numeric SOLUTE ([facility] Blood by Automated results) Medicine an d count Infectious Disease) Platelets 271 Thousand/uL Normal (applies PLATELET COUNT GRE ENWAY [#/volume] in to non-numeric ([facility] Blood by Automated results) Medicine an d count Infectious Disease) Platelet mean 10.0 fL Normal (applies MPV MERRY volume [Entitic to non-numeric ([facility] volume] in Blood results) Medicine and by [facility]af Infectious Disease) Erythrocyte mean 32.3 pg Normal (applies MCH GREENWA Y corpuscular to non-numeric ([facility] hemoglobin results) Medicine and [Entitic mass] by Infectious Automated count Disease) Erythrocyte mean 33.8 g/dL Normal (applies MCHC GREENWA Y corpuscular to non-numeric ([facility] hemoglobin results) Medicine and concentration Infectious [Mass/volume] by Disease) Automated count Erythrocyte mean 95.5 fL Normal (applies MCV GREENWA Y corpuscular volume to non-numeric ([facility] [place] [Entitic volume] results) Medicine and by Automated count Infectious Disease) Erythrocytes 4.21 Million/uL Normal (applies RBC [address] [address] [#/volume] in to non-numeric ([facility] Blood by Automated results) Medicine an d count Infectious Disease) Erythrocyte 13.3 % Normal (applies RDW MERRY distribution width to non-numeric ([facility] [place] [Ratio] by results) Medicine and Automated count Infectious Disease) ID Date Data Source [id number] 06/10/2019 08:44:00 AM EST MERRY ([facility] [place] Medicine and Infectious Disease) Name Value Range Interpretation Description Data Sup porting Code Source(s) Document(s ) Cholesterol 186 Normal (applies CHOLESTEROL,TOT GREENW AY [Mass/volume] mg/dL to non-numeric AL ([facility] a in Serum or results) n MT Plasma Medicine and Infectious Disease) Cholesterol in 37 mg/dL Below low normal HDL CHOLESTEROL GR EENWAY HDL ([facility] [Mass/volume] n [place] in Serum or Medicine and Plasma Infectious Disease) Triglyceride 226 Above high TRIGLYCERIDES MERRY [Mass/volume] mg/dL normal ([facility] in Serum or n MT Plasma Medicine and Infectious Disease) Note: If a non-fasting specim en was collected, consider repeat triglyceride testing on a fasting specim en if clinically indicated. Sana et al. J of Clin. Lipidol. 2015 ;9:129-169. Cholesterol non HDL 149 mg/dL_(calc) Above high NON HDL GR EENWAY [Mass/volume] in normal CHOLESTEROL ([facility] an [place] Serum or Plasma Medicine and Infectious Disease) Note: For patients with diabe odalis plus 1 major ASCVD risk factor, treating to a non-HDL-C goal of <100 mg/ dL (LDL-C of <70 mg/dL) is considered a therapeutic option. Cholesterol.total/Cholesterol in 5.0 Above CHOLEST KYRIE/HDL MERRY HDL [Mass Ratio] in Serum or calc high RATIO ( [facility] Plasma normal MT Medicine and Infectious Disease) Cholesterol in LDL [Mass/volume] 115 Above LDL-CHO LESTEROL MERRY in Serum or Plasma by mg/dL_( high ([facility] calculation calc) normal [place] Medicine and Infectious Disease) Note: LDL-C is now calculated using the Violeta calculation, which is a validated novel method provi ding better accuracy than the Friedewald equation in the estimation of LDL-C. Werner SS et al. SYLVIA. 2013; 310(19): 1472-0262 For additio nal information, please refer to http://education.[employer]/fa q/KGT471 (This link is being provided for informational/educational pu rposes only.) Desirable range < 100 mg/dL for primary prevention; <70 mg/dL for patients with CHD or diabetic patients with > or = 2 CHD risk factors. ID Date Data Source [id number] 06/10/2019 08:44:00 AM EST MERRY ([facility] [place] Medicine and Infectious Disease) Name Value Range Interpretation Description Data Sup porting Code Source(s) Document(s ) Alanine 17 U/L Normal (applies ALT MERRY aminotransferase to non-numeric ([facility] [Enzymatic results) n [place] activity/volume] Medicine and in Serum or Plasma Infectious Disease) Albumin 4.0 Normal (applies ALBUMIN MERRY [Mass/volume] in g/dL to non-numeric ([facility] Serum or Plasma results) n MT Medicine and Infectious Disease) Aspartate 21 U/L Normal (applies AST MERRY aminotransferase to non-numeric ([facility] [Enzymatic results) n MT activity/volume] Medicine and in Serum or Plasma Infectious Disease) Albumin/Globulin 1.2 Normal (applies ALBUMIN/GLOBU GRE ENWAY [Mass Ratio] in (calc) to non-numeric KURTIS RATIO ([facility] Serum or Plasma results) n [place] Medicine and Infectious Disease) Calcium 9.8 Normal (applies CALCIUM MERRY [Mass/volume] in mg/dL to non-numeric ([facility] Serum or Plasma results) [facility] Medicine and Infectious Disease) Bilirubin.total 0.5 Normal (applies BILIRUBIN,TOT GREE NWAY [Mass/volume] in mg/dL to non-numeric AL ([facility] Serum or Plasma results) n MT Medicine and Infectious Disease) Carbon dioxide, 30 Normal (applies CARBON MERRY total mmol/L to non-numeric DIOXIDE ([facility] [Moles/volume] in results) [facility] Serum or Plasma Medicine and Infectious Disease) Chloride 103 Normal (applies CHLORIDE MERRY [Moles/volume] in mmol/L to non-numeric ([facility] Serum or Plasma results) [facility] Medicine and Infectious Disease) Creatinine 1.72 Above high CREATININE MERRY [Mass/volume] in mg/dL normal ([facility] Serum or Plasma n MT Medicine and Infectious Disease) Note: The upper reference limit for Creatinine is approximately 13% higher for people identified as - Sammar[place]. Globulin 3.4 g/dL_(calc) Normal (applies GLOBULIN MERRY [Mass/volume] in to non-numeric ([facility] [place] Serum by results) Medicine and calculation Infectious Disease) Potassium 4.4 mmol/L Normal (applies POTASSIUM MERRY [Moles/volume] in to non-numeric ([facility] [place] Serum or Plasma results) Medicine and Infectious Disease) Glomerular 36 mL/min/1.73m2 Below low EGFR NON AFR MERRY filtration normal BANGLADESHI ([facility] rate/1.73 sq Medicine and M.predicted Infectious [Volume Rate/Area] Disease) in Serum or Plasma by Creatinine-based formula (MDRD) Protein 7.4 g/dL Normal (applies PROTEIN, TOTAL MERRY [Mass/volume] in to non-numeric ([facility] [place] Serum or Plasma results) Medicine and Infectious Disease) Glomerular 42 mL/min/1.73m2 Below low EGFR MERRY filtration normal BANGLADESHI ([facility] rate/1.73 sq M Medicine and predicted among Infectious blacks [Volume Disease) Rate/Area] in Serum or Plasma by Creatinine-based formula (MDRD) Sodium 141 mmol/L Normal (applies SODIUM MERRY [Moles/volume] in to non-numeric ([facility] or Plasma results) Medicine and Infectious Disease) Urea 12 (calc) Normal (applies BUN/CREATININE MERRY nitrogen/Creatinin to non-numeric RATIO ([facility] [place] [Mass Ratio] in results) Medicine and Serum or Plasma Infectious Disease) Alkaline 33 U/L Below low ALKALINE MERRY phosphatase normal PHOSPHATASE ([facility] [place] [Enzymatic Medicine and activity/volume] Infectious in Serum or Plasma Disease) Urea nitrogen 21 mg/dL Normal (applies UREA NITROGEN [place] [Mass/volume] in to non-numeric ([facility] [place] Serum or Plasma results) Medicine and Infectious Disease) Fasting glucose 69 mg/dL Normal (applies GLUCOSE,FASTING GR [place]AY [Mass/volume] in to non-numeric ([facility] Serum or Plasma results) Medicine and Infectious Disease) Procedure Social History Code Duration Value Status Description Data Source(s ) Smoking 03/28/2020 denies EtOH, completed denies EtOH, MEDGEN ([email or web address] 12:00:00 AM EDT tobacco or tobacco or illicit NIKKI Razo) 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 Smoking 03/28/2020 Unknown if ever completed Unknown if ever MEDG EN ([email or web address] 12:00:00 AM EDT smoked smoked Medical, [facility]) Smoking 03/24/2020 denies EtOH, completed denies EtOH, MEDGEN ([email or web address] 12:00:00 AM EDT tobacco or tobacco or illicit M edical, PC) 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 Smoking 03/24/2020 Unknown if ever completed Unknown if ever MEDG EN ([facility] 12:00:00 AM EDT smoked smoked Medical, PC) Smoking 03/14/2020 denies EtOH, completed denies EtOH, MEDGEN ([facility] 12:00:00 AM EDT tobacco or tobacco or illicit M edical, PC) 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 Smoking 03/14/2020 Unknown if ever completed Unknown if ever MEDG EN ([facility] 12:00:00 AM EDT smoked smoked Medical, PC) Smoking 01/28/2020 Ex-smoker completed Ex-smoker MERRY 12:15:00 PM EDT (finding) (finding) ([facility] Medicine and Infectious Disease) Smoking 12/27/2019 Ex-smoker completed Ex-smoker MERRY 12:00:00 PM EDT (finding) (finding) ([facility] Medicine and Infectious Disease) Smoking 11/22/2019 Ex-smoker completed Ex-smoker MERRY 02:30:00 PM EDT (finding) (finding) ([facility] Medicine and Infectious Disease) Smoking 09/27/2019 Denies Ever completed Denies Ever Smoked [facility] 06:23:00 PM EDT Smoked Medical C enter Smoking 09/27/2019 Denies Ever completed Denies Ever Smoked [facility] 11:48:00 AM EDT Smoked Medical C enter Smoking 09/14/2019 Ex-smoker completed Ex-smoker MERRY 04:00:00 PM EDT (finding) (finding) ([facility] Medicine and Infectious Disease) Smoking 02/22/2019 Ex-smoker completed Ex-smoker MERRY 12:15:00 PM EDT (finding) (finding) ([facility] Medicine and Infectious Disease) Smoking 12/14/2018 Ex-smoker completed Ex-smoker MERRY 11:00:00 AM EDT (finding) (finding) ([facility] Medicine and Infectious Disease) Smoking Unknown if ever completed Unknown if ever AMISH LIMON smoked smoked ([facility] Medicine and Infectious Disease) Vital Signs ID Date Data Source UNK Name Value Range Interpretation Code Description Data Source(s) Heart rate 78 /min 78 /min MEDGEN ([facility]) Respiratory rate 14 /min 14 /min MEDGEN ( [facility]) Body mass index 21 kg/m2 21 kg/m2 MEDGEN (S t (BMI) [Ratio] [facility]) Diastolic blood 60 mm[Hg] 60 mm[Hg] MEDGEN (S t pressure [facility]) Systolic blood 100 mm[Hg] 100 mm[Hg] MEDGEN ([facility]) Body weight 138 lb 138 lb MEDGEN ([facility]) Body height 68 in 68 in MEDGEN ([facility]) Heart rate 78 /min 78 /min MEDGEN ([facility]) Respiratory rate 14 /min 14 /min MEDGEN ( [facility]) Body mass index 21 kg/m2 21 kg/m2 MEDGEN (S t (BMI) [Ratio] [facility], ) Diastolic blood 60 mm[Hg] 60 mm[Hg] MEDGEN (S t pressure [facility]) Systolic blood 100 mm[Hg] 100 mm[Hg] MEDGEN ([facility]) Body weight 138 lb 138 lb MEDGEN ([facility]) Body height 68 in 68 in MEDGEN ([facility]) Heart rate 78 /min 78 /min MEDGEN ([facility]) Respiratory rate 14 /min 14 /min MEDGEN ( [facility]) Body mass index 21 kg/m2 21 kg/m2 MEDGEN (S t (BMI) [Ratio] [facility]) Diastolic blood 60 mm[Hg] 60 mm[Hg] MEDGEN (S t pressure [facility]) Systolic blood 100 mm[Hg] 100 mm[Hg] MEDGEN ([facility]) Body weight 138 lb 138 lb MEDGEN ([facility]) Body height 68 in 68 in [facility] Body surface area 1.77 m2 1.77 m2 [place] Y Derived from ([facility] Medicine an d Infectious Disease) Body mass index 23.0 kg/m2 23.0 kg/m2 MERRY (BMI) [Ratio] ([facility] [place] Medicine an d Infectious Disease) Body weight 147 [lb_av] 147 [lb_av] MERRY ([facility] Medicine an d Infectious Disease) Body height 67 [in_i] 67 [in_i] MERRY ([facility] an d Infectious Disease) Respiratory rate 18 /min 18 /min MERRY ([facility] an d Infectious Disease) Heart rate 68 /min 68 /min MERRY ([facility] an d Infectious Disease) Diastolic blood 80 mm[Hg] 80 mm[Hg] MERRY pressure ([facility] an d Infectious Disease) Systolic blood 122 mm[Hg] 122 mm[Hg] [place] pressure ([facility] an d Infectious Disease) Body weight 68.154199 68.632390 kg [facility] Measured kg Medical Center Body temperature 36.224020 36.875512 Anit[facility] Respiratory rate 18 /min 18 /min [facility] Oxygen saturation 98 % 98 % [facility] osephs in Arterial blood [facility] Center by Pulse oximetry Heart rate 73 /min 73 /min [facility] Body height 175.657253 175.695704 cm [facility] Center Diastolic blood 72 mm[Hg] 72 mm[Hg] [facility] pressure [facility] Systolic blood 143 mm[Hg] 143 mm[Hg] [facility] pressure [facility] Body mass index 22.1 kg/m2 22.1 kg/m2 [facility] (BMI) [Ratio] Medical [facility] Heart rate 73 /min 73 /min MEDGEN ([facility] , ) Inhaled oxygen 95 % 95 % MEDGEN ([facility], ) Body weight 150 lb 150 lb MEDGEN ([facility] , ) Heart rate 73 /min 73 /min MEDGEN ([facility]) Inhaled oxygen 95 % 95 % MEDGEN ([facility], [facility]) Body weight 150 lb 150 lb MEDGEN ([facility] Heart rate 73 /min 73 /min MEDGEN ([facility]) Inhaled oxygen 95 % 95 % MEDGEN ([facility], ) Body weight 150 lb 150 lb MEDGEN ([facility] , ) Body height 67 [in_us] 67 [in_us] MERRY ([facility] an d Infectious Disease) Respiratory rate 18 /min 18 /min MERRY ([facility] [place] [facility] an d Infectious Disease) Heart rate 68 /min 68 /min MERRY ([facility] an d Infectious Disease) Diastolic blood 60 mm[Hg] 60 mm[Hg] EMRRY pressure ([facility] an d Infectious Disease) Systolic blood 120 mm[Hg] 120 mm[Hg] [place] pressure ([facility] an d Infectious Disease) Heart rate 80 /min 80 /min MEDGEN ([facility] , ) Inhaled oxygen 93 % 93 % MEDGEN ([facility], ) Body mass index 24.2 kg/m2 24.2 kg/m2 MEDGEN (S t (BMI) [Ratio] [facility], ) Diastolic blood 60 mm[Hg] 60 mm[Hg] MEDGEN (S t pressure [facility]) Systolic blood 120 mm[Hg] 120 mm[Hg] MEDGEN ([facility] , ) Body weight 159 lb 159 lb MEDGEN ([facility]) Body height 68 in 68 in MEDGEN ([facility]) Heart rate 80 /min 80 /min MEDGEN ([facility] , ) Inhaled oxygen 93 % 93 % MEDGEN ([facility], ) Body mass index 24.2 kg/m2 24.2 kg/m2 MEDGEN (S t (BMI) [Ratio] [facility], ) Diastolic blood 60 mm[Hg] 60 mm[Hg] MEDGEN (S t pressure [facility] , ) Systolic blood 120 mm[Hg] 120 mm[Hg] MEDGEN ([facility] , ) Body weight 159 lb 159 lb MEDGEN ([facility]) Body height 68 in 68 in MEDGEN ([facility]) Heart rate 80 /min 80 /min MEDGEN ([facility]) Inhaled oxygen 93 % 93 % MEDGEN ([facility], ) Body mass index 24.2 kg/m2 24.2 kg/m2 MEDGEN (S t (BMI) [Ratio] [facility], ) Diastolic blood 60 mm[Hg] 60 mm[Hg] MEDGEN (S t pressure [facility]) Systolic blood 120 mm[Hg] 120 mm[Hg] MEDGEN ([facility] , ) Body weight 159 lb 159 lb MEDGEN ([facility]) Body height 68 in 68 in MEDGEN ([facility]) Heart rate 57 /min 57 /min MEDGEN ([facility]) Respiratory rate 14 /min 14 /min MEDGEN ( [facility]) Inhaled oxygen 94 % 94 % MEDGEN ([facility], ) Body mass index 23.4 kg/m2 23.4 kg/m2 MEDGEN (S t (BMI) [Ratio] [facility], ) Diastolic blood 60 mm[Hg] 60 mm[Hg] MEDGEN (S t pressure [facility]) Systolic blood 130 mm[Hg] 130 mm[Hg] MEDGEN ([facility]) Body weight 154 lb 154 lb MEDGEN ([facility]) Body height 68 in 68 in MEDGEN ([facility]) Heart rate 57 /min 57 /min MEDGEN ([facility]) Respiratory rate 14 /min 14 /min MEDGEN ( [facility]) Inhaled oxygen 94 % 94 % MEDGEN ([facility], ) Body mass index 23.4 kg/m2 23.4 kg/m2 MEDGEN (S t (BMI) [Ratio] [facility], ) Diastolic blood 60 mm[Hg] 60 mm[Hg] MEDGEN (S t pressure [facility] , ) Systolic blood 130 mm[Hg] 130 mm[Hg] MEDGEN ([facility]) Body weight 154 lb 154 lb MEDGEN ([facility]) Body height 68 in 68 in MEDGEN ([facility]) Heart rate 57 /min 57 /min MEDGEN ([facility]) Respiratory rate 14 /min 14 /min MEDGEN ( [facility]) Inhaled oxygen 94 % 94 % MEDGEN ([facility], ) Body mass index 23.4 kg/m2 23.4 kg/m2 MEDGEN (S t (BMI) [Ratio] [facility], ) Diastolic blood 60 mm[Hg] 60 mm[Hg] MEDGEN (S t pressure [facility]) Systolic blood 130 mm[Hg] 130 mm[Hg] [facility] ([facility]) Body weight 154 lb 154 lb [facility] ([facility]) Body height 68 in 68 in [facility] ([facility]) Patient Treatment Plan of Care Planned Activity Planned Date Details Description Data Source (s) Tamsulosin hydrochloride 02/07/2020 [place] 0.4 MG Oral Capsule 12:00:00 AM EDT ([facility] Medicine and Infectious Dise ase) dolutegravir 50 MG Oral 11/22/2019 [place] Tablet [Tivicay] 12:00:00 AM EDT ([facility] Medicine and Infectious Dise ase) Metoprolol Tartrate 25 MG 11/22/2019 [place] Oral Tablet 12:00:00 AM EDT ([facility] Medicine and Infectious Dise ase) Fenofibrate 160 MG Oral 11/16/2019 [place] Tablet 12:00:00 AM EDT ([facility] Medicine and Infectious Dise ase) abacavir 300 MG Oral Tablet 10/01/2019 MERRY 12:00:00 AM EDT ([facility] Medicine and Infectious Dise ase) icosapent ethyl 1000 MG 09/27/2019 [place] Oral Capsule [Vascepa] 12:00:00 AM EDT ([facility] Medicine and Infectious Dise ase) pioglitazone 30 MG Oral 09/27/2019 [place] Tablet 12:00:00 AM EDT ([facility] Medicine and Infectious Dise ase) sitagliptin 25 MG Oral 09/26/[address] Tablet [Januvia] 12:00:00 AM EDT ([facility] Medicine and Infectious Dise ase) Glipizide 10 MG Oral Tablet 09/26/2019 MERRY 12:00:00 AM EDT ([facility] Medicine and Infectious Dise ase) Fluticasone Propionate 50 08/03/2019 [place] MCG/ACT Nasal Suspension 12:00:00 AM EST ([facility] Medicine and Infectious Dise ase) abacavir 300 MG Oral Tablet 08/02/2019 MERRY 12:00:00 AM EST ([facility] Medicine and Infectious Dise ase) QC Fluticasone Propionate 07/16/2019 [place] 50 MCG/ACT Nasal Suspension 12:00:00 AM EST ([facility] Medicine and Infectious Dise ase) cobicistat 150 MG / 06/18/2019 MERRY darunavir 800 MG Oral 12:00:00 AM EST ([place] Tablet [Prezcobix] Medicine and Infectious Dise ase) Dextromethorphan 3 MG/ML / 05/24/2019 G RE[place]WAY Promethazine Hydrochloride 12:00:00 AM EST ([facility] 1.25 MG/ML Oral Solution Med icine and Infectious Dise ase) Zithromax Z-Pk 250 MG Oral 05/24/2019 MERRY Tablet 12:00:00 AM EST ([facility] Medicine and Infectious Dise ase) Lamivudine 100 MG Oral 04/19/[address] Tablet 12:00:00 AM EDT ([facility] Medicine and Infectious Dise ase) abacavir 300 MG Oral Tablet 02/26/2019 MERRY 12:00:00 AM EDT ([facility] Medicine and Infectious Dise ase) Rosuvastatin calcium 10 MG 02/18/2019 [place] Oral Tablet 12:00:00 AM EDT ([facility] Medicine and Infectious Dise ase) Tamsulosin hydrochloride 12/31/2018 [place] 0.4 MG Oral Capsule 12:00:00 AM EDT ([facility] [employer] [facility] and [facility] Dise [facility]) Fenofibrate 160 MG Oral 11/02/2018 [place] Tablet 12:00:00 AM EDT ([facility] Medicine and Infectious Dise ase) Glipizide 10 MG Oral Tablet 10/28/2018 MERRY 12:00:00 AM EDT ([facility] Medicine and Infectious Dise ase) sitagliptin 25 MG Oral 10/05/[address] Tablet [Januvia] 12:00:00 AM EDT ([facility] [place] Medicine and Infectious Dise ase) icosapent ethyl 1000 MG 09/28/2018 [place] Oral Capsule [Vascepa] 12:00:00 AM EDT [facility] Albuterol 0.83 MG/ML 09/17/2018 [place] Inhalant Solution 12:00:00 AM EDT [facility] Dise [facility] pioglitazone 30 MG Oral 09/15/2018 [place] Tablet 12:00:00 AM EDT ([facility] Medicine and Infectious Dise ase) abacavir 300 MG Oral Tablet 08/04/2018 MERRY 12:00:00 AM EST ([facility] Medicine and Infectious Dise ase) Metoprolol Tartrate 25 MG 07/23/2018 [place] Oral Tablet 12:00:00 AM EST ([facility] Medicine and Infectious Dise ase) cobicistat 150 MG / 06/01/2018 MERRY darunavir 800 MG Oral 12:00:00 AM EST ([facility] Tablet [Prezcobix] Medicine and Infectious Dise ase) Lamivudine 100 MG Oral 05/25/[address] Tablet 12:00:00 AM EST ([facility] Medicine and Infectious Dise ase) Ofloxacin 3 MG/ML 03/23/2018 MERRY Ophthalmic Solution 12:00:00 AM EDT ([facility] Medicine and Infectious Dise ase) Rosuvastatin calcium 10 MG 02/11/2018 G [place] Oral Tablet [Crestor] 12:00:00 AM EDT ([facility] Medicine and Infectious Dise ase) prasugrel 5 MG Oral Tablet 2017 G [place] [Effient] 12:00:00 AM EDT ([facility] Medicine and Infectious Dise ase) Fenofibrate 145 MG Oral 08/27/2017 [place] Tablet [Tricor] 12:00:00 AM EST ([facility] Medicine and Infectious Dise ase) Metoprolol Tartrate 25 MG 07/16/2017 [place] Oral Tablet 12:00:00 AM EST ([facility] Medicine and Infectious Dise ase) Glipizide 10 MG Oral Tablet 12/12/2016 MERRY 12:00:00 AM EDT ([facility] Medicine and Infectious Dise ase) [place]-3 Acid Ethyl Esters 12/12/2015 [place] (GROUP HOME) 1000 MG Oral Capsule 12:00:00 AM EDT ([facility] Medicine and Infectious Dise ase) sildenafil 100 MG Oral 08/25/[address] Tablet [Viagra] 12:00:00 AM EST ([facility] Medicine and Infectious Dise ase) levocetirizine 07/25/2014 MERRY dihydrochloride 5 MG Oral 12:00:00 AM EST ([facility] Medicine and Infectious Dise ase) [place]-3 Acid Ethyl Esters 02/18/2014 [place] (GROUP HOME) 1000 MG Oral Capsule 12:00:00 AM EDT ([facility] [Lovaza] Medicine and Infectious Dise ase) Metoprolol Tartrate 25 MG 12/06/2013 [place] Oral Tablet 12:00:00 AM EDT ([facility] Medicine and Infectious Dise ase) Lamivudine 100 MG Oral 08/02/[address] Tablet [Epivir HBV] 12:00:00 AM EST ([facility] Medicine and Infectious Dise ase) Dextromethorphan 3 MG/ML / 03/30/2013 [place] Promethazine Hydrochloride 12:00:00 AM EDT ([facility] 1.25 MG/ML Oral Solution Med icine and Infectious Dise ase) Zithromax Z-Pk 250 MG OR 03/30/2013 [place] TABS 12:00:00 AM EDT ([facility] Medicine and Infectious Dise ase) Fenofibrate 160 MG Oral 01/25/2013 [place] Tablet 12:00:00 AM EDT ([facility] Medicine and Infectious Dise ase) Lamivudine 100 MG Oral 01/04/[address] Tablet [Epivir HBV] 12:00:00 AM EDT ([facility] Medicine and Infectious Dise ase) Lisinopril 2.5 MG Oral 09/25/[address] Tablet 12:00:00 AM EDT ([facility] Medicine and Infectious Dise ase) Glyburide 2.5 MG Oral 09/25/2012 [place] Tablet 12:00:00 AM EDT ([facility] Medicine and Infectious Dise ase) EC-81 Aspirin 81 MG OR TBEC 09/25/2012 MERRY 12:00:00 AM EDT ([facility] Medicine and Infectious Dise ase) darunavir 600 MG Oral 09/07/2012 [place] Tablet [Prezista] 12:00:00 AM EST ([facility] Medicine and Infectious Dise ase) Promethazine Hydrochloride 07/22/2012 G [place] 50 MG/ML Injectable 12:00:00 AM EST ([facility] Solution [Phenergan] Medicin e and Infectious Dise ase) Zithromax Z-Pk 250 MG OR 07/14/2012 [place] TABS 12:00:00 AM EST ([facility] Medicine and Infectious Dise ase) [place]-3 Acid Ethyl Esters 06/22/2012 [place] (GROUP HOME) 1000 MG Oral Capsule 12:00:00 AM EST ([facility] [Lovaza] Medicine and Infectious Dise ase) Lamivudine 100 MG Oral 05/04/[address] Tablet [Epivir HBV] 12:00:00 AM EDT ([facility] Medicine and Infectious Dise ase) Rosuvastatin calcium 20 MG 11/18/2011 [place] Oral Tablet [Crestor] 12:00:00 AM EDT ([facility] Medicine and Infectious Dise ase) Glyburide 5 MG Oral Tablet 10/07/2011 [place] 12:00:00 AM EDT ([facility] Medicine and Infectious Dise ase) Nystatin 161108 UNT/ML / 10/07/2011 [place] Triamcinolone Acetonide 1 12:00:00 AM EDT ([facility] MG/ML Topical Cream Medicine and Infectious Dise ase) Levofloxacin 500 MG Oral 09/27/2011 [place] Tablet [Levaquin] 12:00:00 AM EDT ([facility] Medicine and Infectious Dise ase) Nasonex 50 MCG/ACT NA SUSP 09/20/2011 [place] 12:00:00 AM EDT ([facility] Medicine and Infectious Dise ase) Didanosine 125 MG Delayed 09/04/2011 [place] Release Oral Capsule 12:00:00 AM EST ([facility] Medicine and Infectious Dise ase) Ritonavir 100 MG Oral 09/04/2011 [place] Capsule [Norvir] 12:00:00 AM EST ([facility] Medicine and Infectious Dise ase) darunavir 600 MG Oral 09/04/2011 [place] Tablet [Prezista] 12:00:00 AM EST ([facility] Medicine and Infectious Dise ase) [place]-3 Acid Ethyl Esters 08/16/2011 [place] (GROUP HOME) 1000 MG Oral Capsule 12:00:00 AM EST ([facility] [Lovaza] Medicine and Infectious Dise ase) Tamsulosin hydrochloride 07/19/2011 [place] 0.4 MG Oral Capsule 12:00:00 AM EST ([facility] [Flomax] Medicine and Infectious Dise ase) Glyburide 2.5 MG Oral 03/05/2011 [place] Tablet 12:00:00 AM EDT ([facility] Medicine and Infectious Dise ase) Ritonavir 100 MG Oral 03/05/2011 [place] Tablet [Norvir] 12:00:00 AM EDT ([facility] Medicine and Infectious Dise ase) darunavir 600 MG Oral 03/05/2011 [place] Tablet [Prezista] 12:00:00 AM EDT ([facility] Medicine and Infectious Dise ase)
--- NOTE | 2020-04-10 19:30 | HP ---
CHIEF COMPLAINT: PCP: HISTORY OF PRESENT ILLNESS: Mr. Harvey is an 84M with PMH of CAD x4 stents, CKD, HIV (on HAART therapy), DM, on daily ASA present to ED via EMS after a fall today. He reports being at his sink, feeling dizziness (described as room spinning) and fell, and hit his head. ER course was notable for: (1) (2) (3) Recent Travel: PAST MEDICAL HISTORY: PAST SURGICAL HISTORY: Social History: Smoking: Alcohol: Drugs: Allergies No Known Allergies Allergy (Verified 04/07/20 13:43) HOME MEDICATIONS: Home Medications Medication Instructions Recorded Alpha Lipoic Acid 200 mg PO TID 12/17/12 Ascorbate Calcium/Bioflav [Cande-C 1 each PO TID 12/17/12 500 mg Tablet] Fenofibrate [Lipofen] 160 mg PO DAILY 12/17/12 Ferrous Fumarate 65 mg PO DAILY 12/17/12 Sitagliptin Phosphate [Januvia] 25 mg PO DAILY 08/25/16 Cholecalciferol (Vitamin D3) 2,000 unit PO BID 11/27/16 [Vitamin D3] Multivitamin with Minerals [Icaps 1 each PO DAILY 11/27/16 Plus] Vitamin B Complex 1 tab PO DAILY 11/27/16 Vitamin E 400 unit PO DAILY 11/27/16 Carboxymethylcellulos/Glycerin 15 ml OP PRN 7 Days #1 drops 03/22/18 [Lubricant 0.5-0.9% Eye Drops] Tamsulosin HCl [Flomax] 0.4 mg PO DAILY 10/01/18 Fluticasone Prop 0.05% Nasal 1 spray NS BID 12/13/19 [Flonase -] Icosapent Ethyl [Vascepa] 2 cap PO BID 12/13/19 Lamivudine 50 mg PO DAILY 12/14/19 Melatonin 5 mg PO HS PRN tab 12/17/19 Acetaminophen [Tylenol .Regular 650 mg PO Q6H PRN tablet 02/03/20 Strength -] Aspirin Coated [Ecotrin -] 81 mg PO DAILY tablet.ec 02/03/20 Clopidogrel Bisulfate [Plavix -] 75 mg PO DAILY tablet 02/03/20 Darunavir/Cobicistat [Prezcobix 1 each PO DAILY tablet 02/03/20 800 mg-150 mg Tablet] Docusate Sodium [Colace -] 300 mg PO HS capsule 02/03/20 Dolutegravir Sodium [Tivicay] 50 mg PO DAILY tablet 02/03/20 Glipizide [Glucotrol -] 10 mg PO BID@0700,1630 tablet 02/03/20 Lamivudine Oral Soln [Epivir Oral 50 mg PO DAILY ml 02/03/20 Solution -] Metoprolol Tartrate [Lopressor -] 25 mg PO BID tablet 02/03/20 Pioglitazone HCl [Actos] 30 mg PO DAILY@0700 tablet 02/03/20 Rosuvastatin [Crestor -] 10 mg PO HS tablet 02/03/20 REVIEW OF SYSTEMS CONSTITUTIONAL: Absent: fever, chills, diaphoresis, generalized weakness, malaise, loss of appetite, weight change HEENT: Absent: rhinorrhea, nasal congestion, throat pain, throat swelling, difficulty swallowing, mouth swelling, ear pain, eye pain, visual changes CARDIOVASCULAR: Absent: chest pain, syncope, palpitations, irregular heart rate, lightheadedness, peripheral edema RESPIRATORY: Absent: cough, shortness of breath, dyspnea with exertion, orthopnea, wheezing, stridor, hemoptysis GASTROINTESTINAL: Absent: abdominal pain, abdominal distension, nausea, vomiting, diarrhea, constipation, melena, hematochezia GENITOURINARY: Absent: dysuria, frequency, urgency, hesitancy, hematuria, flank pain, genital pain MUSCULOSKELETAL: Absent: myalgia, arthralgia, joint swelling, back pain, neck pain SKIN: Absent: rash, itching, pallor HEMATOLOGIC/IMMUNOLOGIC: Absent: easy bleeding, easy bruising, lymphadenopathy, frequent infections ENDOCRINE: Absent: unexplained weight gain, unexplained weight loss, heat intolerance, cold intolerance NEUROLOGIC: Absent: headache, focal weakness or paresthesias, dizziness, unsteady gait, seizure, mental status changes, bladder or bowel incontinence PSYCHIATRIC: Absent: anxiety, depression, suicidal or homicidal ideation, hallucinations. PHYSICAL EXAMINATION Vital Signs - 24 hr 04/10/20 15:39 Temperature 97.3 F L Pulse Rate 65 Respiratory 18 Rate Blood Pressure 138/69 O2 Sat by Pulse 100 Oximetry (%) GENERAL: Awake, alert, and fully oriented, in no acute distress. HEAD: Normal with no signs of trauma. EYES: Pupils equal, round and reactive to light, extraocular movements intact, sclera anicteric, conjunctiva clear. No lid lag. EARS, NOSE, THROAT: Ears normal, nares patent, oropharynx clear without exudates. Moist mucous membranes. NECK: Normal range of motion, supple without lymphadenopathy, JVD, or masses. LUNGS: Breath sounds equal, clear to auscultation bilaterally. No wheezes, and no crackles. No accessory muscle use. HEART: Regular rate and rhythm, normal S1 and S2 without murmur, rub or gallop. ABDOMEN: Soft, nontender, not distended, normoactive bowel sounds, no guarding, no rebound, no masses. No hepatomegaly or splenomegaly. MUSCULOSKELETAL: Normal range of motion at all joints. No bony deformities or tenderness. No CVA tenderness. UPPER EXTREMITIES: 2+ pulses, warm, well-perfused. No cyanosis. No clubbing. No peripheral edema. LOWER EXTREMITIES: 2+ pulses, warm, well-perfused. No calf tenderness. No peripheral edema. NEUROLOGICAL: Cranial nerves II-XII intact. Normal speech. Normal gait. PSYCHIATRIC: Cooperative. Good eye contact. Appropriate mood and affect. SKIN: Warm, dry, normal turgor, no rashes or lesions noted, normal capillary refill. Laboratory Results - last 24 hr 04/10/20 04/10/20 04/10/20 16:55 16:55 16:55 WBC 5.9 RBC 3.63 L Hgb 12.0 Hct 35.2 L MCV 97.0 H MCH 33.1 MCHC 34.1 RDW 13.6 Plt Count 203 MPV 8.0 Absolute Neuts (auto) 3.1 Neutrophils % 52.5 Lymphocytes % 31.1 Monocytes % 10.3 H Eosinophils % 5.5 H Basophils % 0.6 Nucleated RBC % 0 PT with INR 12.40 INR 1.05 PTT (Actin FS) 30.6 Sodium 135 L Potassium 4.0 Chloride 101 Carbon Dioxide 27 Anion Gap 7 L BUN 24.9 H Creatinine 2.4 H Est GFR (CKD-EPI)AfAm 28.06 Est GFR (CKD-EPI)NonAf 24.21 Random Glucose 281 H Calcium 9.0 Total Bilirubin 0.7 AST 23 ALT 24 Alkaline Phosphatase 43 L Creatine Kinase 80 Troponin I < 0.02 Total Protein 7.0 Albumin 3.6 Blood Type Antibody Screen 04/10/20 16:55 WBC RBC Hgb Hct MCV MCH MCHC RDW Plt Count MPV Absolute Neuts (auto) Neutrophils % Lymphocytes % Monocytes % Eosinophils % Basophils % Nucleated RBC % PT with INR INR PTT (Actin FS) Sodium Potassium Chloride Carbon Dioxide Anion Gap BUN Creatinine Est GFR (CKD-EPI)AfAm Est GFR (CKD-EPI)NonAf Random Glucose Calcium Total Bilirubin AST ALT Alkaline Phosphatase Creatine Kinase Troponin I Total Protein Albumin Blood Type A POSITIVE Antibody Screen Negative ASSESSMENT/PLAN: #Syncope - CT head - moderate atrophy; 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 I reviewed the resident's note and discussed the case with the resident. I agree with the resident's findings and plan as documented. SUBJECTIVE: OBJECTIVE: ASSESSMENT AND PLAN:
--- NOTE | 2020-04-10 19:39 | PN ---
Teaching Attending Note Name of Resident: Filippo Silva ATTENDING PHYSICIAN STATEMENT I saw and evaluated the patient. I reviewed the resident's note and discussed the case with the resident. I agree with the resident's findings and plan as documented. SUBJECTIVE: OBJECTIVE: Vital Signs - 24 hr 04/10/20 15:39 Temperature 97.3 F L Pulse Rate 65 Respiratory 18 Rate Blood Pressure 138/69 O2 Sat by Pulse 100 Oximetry (%) EXAM Laboratory Results - last 24 hr 04/10/20 04/10/20 04/10/20 16:55 16:55 16:55 WBC 5.9 RBC 3.63 L Hgb 12.0 Hct 35.2 L MCV 97.0 H MCH 33.1 MCHC 34.1 RDW 13.6 Plt Count 203 MPV 8.0 Absolute Neuts (auto) 3.1 Neutrophils % 52.5 Lymphocytes % 31.1 Monocytes % 10.3 H Eosinophils % 5.5 H Basophils % 0.6 Nucleated RBC % 0 PT with INR 12.40 INR 1.05 PTT (Actin FS) 30.6 Sodium 135 L Potassium 4.0 Chloride 101 Carbon Dioxide 27 Anion Gap 7 L BUN 24.9 H Creatinine 2.4 H Est GFR (CKD-EPI)AfAm 28.06 Est GFR (CKD-EPI)NonAf 24.21 Random Glucose 281 H Calcium 9.0 Total Bilirubin 0.7 AST 23 ALT 24 Alkaline Phosphatase 43 L Creatine Kinase 80 Troponin I < 0.02 Total Protein 7.0 Albumin 3.6 Blood Type Antibody Screen 04/10/20 16:55 WBC RBC Hgb Hct MCV MCH MCHC RDW Plt Count MPV Absolute Neuts (auto) Neutrophils % Lymphocytes % Monocytes % Eosinophils % Basophils % Nucleated RBC % PT with INR INR PTT (Actin FS) Sodium Potassium Chloride Carbon Dioxide Anion Gap BUN Creatinine Est GFR (CKD-EPI)AfAm Est GFR (CKD-EPI)NonAf Random Glucose Calcium Total Bilirubin AST ALT Alkaline Phosphatase Creatine Kinase Troponin I Total Protein Albumin Blood Type A POSITIVE Antibody Screen Negative Imaging, EKG reviewed in chart ASSESSMENT AND PLAN: DVT ppx:
--- NOTE | 2020-04-10 20:02 | HP ---
Admitting History and Physical - Admission Chief Complaint: Acute syncope and collapse History of Present Illness: This 84 yr old w/m with PMH of CAD, 4 stents, CKD, DM, HIV admitted via ER with an acute syncope and collapse preceded by dizziness and followed by a concussion without LOC. History Source: Patient, Medical Record Limitations to Obtaining History: No Limitations - Past Medical History [employer]: Yes: Peripheral Neuropathy Cardiovascular: Yes: CAD, Hyperlipdemia Pulmonary: No: Asthma, Bronchitis, Cancer, COPD, O2 Dependent, Pneumonia, Previously Intubated, Pulmonary Embolus, Pulmonary Fibrosis, Sleep Apnea, Other Gastrointestinal: No: Ascites, Cancer, Constipation, Crohn's Disease, Diverticulitis, Diverticulosis, Esophageal Varices, Gastritis, GERD, GI Bleed, Hemorrhoids, Hiatal Hernia, Inflamatory Bowel Disease, Irritable Bowel Disease, Pancreatitis, Peptic Ulcer Disease, Ulcerative Colitis, Other Hepatobiliary: No: Cirrhosis, Cholelithiasis, Cholecystitis, Choledocholithiasis, Hepatitis A, Hepatitis B, Hepatitis C, Other Renal/: Yes: Renal Inusuff Heme/Onc: No: Anemia, B12 Deficiency, Bleeding Disorder, Cancer, Current Chemotherapy, Current Radiation Therapy, Hemochromatosis, Hypercoaguable State, Myeloproliferative Synd, Sickle Cell Disease, Sickle Cell Trait, Thrombocytopenia, Other Infectious Disease: Yes: HIV Psych: No: Addictions, Anxiety, Bipolar, Depression, Panic, Psychosis, Schizophrenia, Other Musculoskeletal: Yes: Chronic low back pain, Osteoarthritis Rheumatology: No: Fibromyalgia, Gout, Lupus, Rheumatoid Arthritis, Sarcoidosis, Vasculitis, Other ENT: No: Allergic Rhinitis, Sinusitis, Other Endocrine: Yes: Diabetes Mellitus Dermatology: No: Basal Cell, Cellulitis, Eczema, Melanoma, Psoriasis, Squamous Cell, Other - Past Surgical History Past Surgical History: Yes: Carotid Endarterectomy (right) - Smoking History Smoking history: Never smoked Have you smoked in the past 12 months: No Aproximately how many cigarettes per day: 0 - Alcohol/Substance Use Hx Alcohol Use: No - Social History ADL: Independent History of Recent Travel: No Home Medications - Allergies Allergies/Adverse Reactions: Allergies Allergy/AdvReac Type Severity Reaction Status Date / Time No Known Allergies Allergy Verified 04/07/20 13:43 - Home Medications Home Medications: Ambulatory Orders Alpha Lipoic Acid 200 mg PO TID 12/17/12 Ascorbate Calcium/Bioflav [Cande-C 500 mg Tablet] 1 each PO TID 12/17/12 Fenofibrate [Lipofen] 160 mg PO DAILY 12/17/12 Ferrous Fumarate 65 mg PO DAILY 12/17/12 Sitagliptin Phosphate [Januvia] 25 mg PO DAILY 08/25/16 Cholecalciferol (Vitamin D3) [Vitamin D3] 2,000 unit PO BID 11/27/16 Multivitamin with Minerals [Icaps Plus] 1 each PO DAILY 11/27/16 Vitamin B Complex 1 tab PO DAILY 11/27/16 Vitamin E 400 unit PO DAILY 11/27/16 Carboxymethylcellulos/Glycerin [Lubricant 0.5-0.9% Eye Drops] 15 ml OP PRN 7 Days #1 drops 03/22/18 Tamsulosin HCl [Flomax] 0.4 mg PO DAILY 10/01/18 Fluticasone Prop 0.05% Nasal [Flonase -] 1 spray NS BID 12/13/19 Icosapent Ethyl [Vascepa] 2 cap PO BID 12/13/19 Lamivudine 50 mg PO DAILY 12/14/19 Melatonin 5 mg PO HS PRN tab 12/17/19 Acetaminophen [Tylenol .Regular Strength -] 650 mg PO Q6H PRN tablet 02/03/20 Aspirin Coated [Ecotrin -] 81 mg PO DAILY tablet.ec 02/03/20 Clopidogrel Bisulfate [Plavix -] 75 mg PO DAILY tablet 02/03/20 Darunavir/Cobicistat [Prezcobix 800 mg-150 mg Tablet] 1 each PO DAILY tablet 0 02/03/20 Docusate Sodium [Colace -] 300 mg PO HS capsule 02/03/20 Dolutegravir Sodium [Tivicay] 50 mg PO DAILY tablet 02/03/20 Glipizide [Glucotrol -] 10 mg PO BID@0700,1630 tablet 02/03/20 Lamivudine Oral Soln [Epivir Oral Solution -] 50 mg PO DAILY ml 02/03/20 Metoprolol Tartrate [Lopressor -] 25 mg PO BID tablet 02/03/20 Pioglitazone HCl [Actos] 30 mg PO DAILY@0700 tablet 02/03/20 Rosuvastatin [Crestor -] 10 mg PO HS tablet 02/03/20 Review of Systems - Review of Systems Constitutional: reports: No Symptoms Eyes: reports: No Symptoms HENT: reports: No Symptoms Neck: reports: No Symptoms Cardiovascular: reports: No Symptoms Respiratory: reports: No Symptoms Gastrointestinal: reports: No Symptoms Genitourinary: reports: No Symptoms Breasts: reports: No Symptoms Reported Integumentary: reports: Wound (stapled laceration of occipital region) Neurological: reports: Dizziness Endocrine: reports: No Symptoms Hematology/Lymphatic: reports: No Symptoms Psychiatric: reports: No Symptoms Physical Examination Vital Signs: Vital Signs Temperature 97.3 F L 04/10/20 15:39 Pulse Rate 65 04/10/20 15:39 Respiratory Rate 18 04/10/20 15:39 Blood Pressure 138/69 04/10/20 15:39 O2 Sat by Pulse Oximetry (%) 100 04/10/20 15:39 Constitutional: Yes: Well Nourished, No Distress, Calm Eyes: Yes: Conjunctiva Clear, EOM Intact HENT: Yes: Atraumatic, Normocephalic Neck: Yes: Supple, Trachea Midline Cardiovascular: Yes: Regular Rate and Rhythm Respiratory: Yes: Regular, CTA Bilaterally Gastrointestinal: Yes: Normal Bowel Sounds, Soft ...Rectal Exam: Yes: Deferred Renal/: Yes: WNL Breast(s): Yes: WNL Musculoskeletal: Yes: WNL Extremities: Yes: WNL Edema: No Peripheral Pulses WNL: Yes Integumentary: Yes: Laceration (stapled laceration of occipital region) Wound/Incision: Yes: Open to air Neurological: Yes: Alert, Oriented ...Motor Strength: WNL Psychiatric: Yes: WNL Labs: CBC, BMP 04/10/20 16:55 04/10/20 16:55 Imaging - Results Chest X-ray: Report Reviewed X-ray: Report Reviewed Cat Scan: Report Reviewed EKG: Report Reviewed Other: Report Reviewed (lab data reviewed) Problem List - Problems (1) Dizziness Code(s): R42 - DIZZINESS AND GIDDINESS (2) Syncope Code(s): R55 - SYNCOPE AND COLLAPSE Qualifiers: Syncope type: unspecified Qualified Code(s): R55 - Syncope and collapse (3) Syncope and collapse Code(s): R55 - SYNCOPE AND COLLAPSE (4) [id number] kidney injury Code(s): N17.9 - ACUTE KIDNEY FAILURE, UNSPECIFIED; N18.9 - CHRONIC KIDNEY DISEASE, UNSPECIFIED Qualifiers: Acute renal failure type: unspecified Chronic kidney disease stage: stage 3 (moderate) Qualified Code(s): N17.9 - Acute kidney failure, unspecified; N18.3 - Chronic kidney disease, stage 3 (moderate) (5) CKD (chronic kidney disease) stage 2, GFR 60-89 ml/min Code(s): N18.2 - CHRONIC KIDNEY DISEASE, STAGE 2 (MILD) (6) Coronary arteriosclerosis in patient with history of previous myocardial infarction Code(s): I25.10 - ATHSCL HEART DISEASE OF [place] CORONARY ARTERY W/O 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 CORONARY ARTERY W/O ANG PCTRS (18) Chronic renal insufficiency, stage IV (severe) Code(s): N18.4 - CHRONIC KIDNEY DISEASE, STAGE 4 (SEVERE) (19) Polyneuropathy with HIV infection Code(s): B20 - HUMAN IMMUNODEFICIENCY VIRUS [HIV] DISEASE; G63 - POLYNEUROPATHY IN DISEASES CLASSIFIED ELSEWHERE (20) Vitamin D deficiency Code(s): E55.9 - VITAMIN D DEFICIENCY, UNSPECIFIED Assessment/Plan Assessment/plan: acute dizziness followed by syncope and collapse and concussion without LOC and laceration of occipital region, ?orthostatic hypotension, ?cardiac arrhythmia, CAD, 4 stents, HIV, DM, peripheral neuropathy; IV fluids for hydration; sliding scale regular insulin coverage for DM; HAART for HIV; aspirin and plavix for anticoagulation; fenofibric acid and crestor for HLD; consult to Cardiology; metoprolol for CAD.
--- OUTSIDE RECORDS SUMMARY | 2020-04-10 20:19 | XMS ---
:1935 Author Organization [facility] Care Team Providers Name Role Phone ED STAFF PHYSICIANBEVERLEY Unavailable Unavailable [facility], [facility] Unavailable Unavailable Digiorno, Jayden Unavailable [...] is protected by Article 27-F of the [facility] Public Health law. If you continue you may haveaccess to information: Regarding HIV / AIDS; Provided by facilities licensed or operated by the [facility] Office of Mental Health; or Provided by the [facility] Office for People With Developmental Disabilities. If such information is present, then the following [facility] mandated warning applies: This information has [...] law may result in a fine or alf sentence or both. A general authorization for the release of medical or other information is NOT sufficient authorization for further disclosure. Allergies and Adverse Reactions Type Description Substance Reaction Status Data Source(s ) Allergy to No Known Allergies No known GREENW AY substance allergies ([facility] Disease) Allergy to No Known Allergies No known GREENW AY substance allergies ([facility] Medicine and Infectious Disease) Allergy to No Known Allergies No known GREENW AY substance allergies ([facility] Medicine and Infectious Disease) Allergy to No Known Allergies No known GREENW AY substance allergies ([facility] Medicine and Infectious Disease) Allergy to No Known Allergies No known GREENW AY substance allergies ([facility] Medicine and Infectious Disease) Allergy to No Known Allergies No known GREENW AY substance allergies ([facility] Medicine and Infectious Disease) Allergy to No Known Allergies No known GREENW AY substance allergies ([facility] Medicine and Infectious Disease) Encounters Encounter Providers Location Date Indications Data Source(s ) Attender: Jayden 03/14/2020 [facility] ([facility] [place] 12:00:00 AM EDT Medical, PC) Office Attender: Jayden Singh 03/14/2020 12:00:00 AM EDT [facility] ([facility] [place] Outpatient<td Attender: [facility] 01/28/2020 Hiv [place] ID="encounterTypeDescriptionID0">Follow-Up</td><td>Fred CASTELLANOS MEDICINE & 12:33:00 PM InfectionChronic ([facility]</td><td>[facility] MEDICINE & INFECTIOUS [place] INFECTIOUS EDT - Renal [place] Medicine DISEASE</td><td>01/28/2020</td><td><content DISEASE FailureDiabetes and Infectious ID="encounterDiagnosisID0-0">Hiv Infection</content>, 01:40:00 PM Mell[place] Disease) <content ID="encounterDiagnosisID0-1">Diabetes EDT Mellitus</content>, <content ID="encounterDiagnosisID0-2">Chronic Renal Failure</content></td> Hiv Infection Chronic Renal Failure Diabetes [place] Outpatient<td Attender: [facility] 12/27/2019 Hiv [place] ID="encounterTypeDescriptionID0">Follow-Up</td><td>Fred CASTELLANOS MEDICINE & 11:46:00 AM InfectionDiabetes ([facility]</td><td>[facility] MEDICINE & INFECTIOUS [place] INFECTIOUS EDT - [place] Medicine DISEASE</td><td>12/27/2019</td><td><content DISEASE and Infectious ID="encounterDiagnosisID0-0">Diabetes 11:59:00 PM Disease) Mellitus</content>, <content EDT ID="encounterDiagnosisID0-1">Hiv Infection</content></td> Hiv Infection Diabetes [place] Outpatient<td Attender: [facility] 11/22/2019 Hiv [place] ID="encounterTypeDescriptionID0">Follow-Up</td><td>Fred CASTELLANOS MEDICINE & 02:25:00 PM InfectionDiabetes ([facility]</td><td>[facility] MEDICINE & INFECTIOUS [place] INFECTIOUS EDT - [place] Medicine DISEASE</td><td>11/22/2019</td><td><content DISEASE and Infectious ID="encounterDiagnosisID0-0">Diabetes 03:12:00 PM Disease) Mellitus</content>, <content EDT ID="encounterDiagnosisID0-1">Hiv Infection</content></td> Hiv Infection Diabetes [place] Emergency Attender: BEVERLEY ED STAFF H 09/27/2019 11:18:00 AM [facility] PHYSICIANAttender: STAFF ED EDT - 09/27/2019 Medical Center STAFF PHYSICIANAdmitter: 10:10:00 PM EDT BEVERLEY ED STAFF PHYSICIAN Patient discharged. Lab results<td Attender: [facility] 09/14/2019 Hiv [place] ID="encounterTypeDescriptionID0">Lab [facility] MEDICINE & 03: 35:00 PM InfectionDiabetes ([facility] results</td><td>Fred Marks MD INFECTIOUS EDT - [place] JASMIN Mcelroy MD</td><td>[facility] MEDICINE & DISEASE 0 and Infectious INFECTIOUS 05:10:00 PM Disease) DISEASE</td><td>09/14/2019</td><td><content EDT ID="encounterDiagnosisID0-0">Diabetes Mellitus</content>, <content ID="encounterDiagnosisID0-1">Hiv Infection</content></td> Hiv Infection Diabetes [place] Outpatient Attender: [id number] 08/24/2019 12:22:46 PM I ([facility]) Patient admitted. Outpatient<td Attender: [facility] 06/15/2019 Hiv [place] ID="encounterTypeDescriptionID0">Coming to [facility] MEDICINE & 01:42:00 PM InfectionDiabetes ([facility] have forms completed</td><td>Fred Marks MD INFECTIOUS EST - [place] JASMIN Medicine </td><td>[facility] MEDICINE & DISEASE 9 and Infectious INFECTIOUS 03:02:00 PM Disease) DISEASE</td><td>06/15/2019</td><td><content EST ID="encounterDiagnosisID0-0">Diabetes Mellitus</content>, <content ID="encounterDiagnosisID0-1">Hiv Infection</content></td> Hiv Infection Diabetes [place] Outpatient<td Attender: [facility] 02/22/2019 Hiv [place] ID="encounterTypeDescriptionID0">Walk-in [facility] MEDICINE & 12:05:00 PM InfectionDiabetes ([facility] patient</td><td>Fred Marks MD INFECTIOUS EDT - [place] [facility] </td><td>[facility] MEDICINE & DISEASE 9 and Infectious INFECTIOUS 12:57:00 PM Disease) DISEASE</td><td>02/22/2019</td><td><content EDT ID="encounterDiagnosisID0-0">Diabetes Mellitus</content>, <content ID="encounterDiagnosisID0-1">Hiv Infection</content></td> Hiv Infection Diabetes [place] Outpatient<td Attender: [facility] 12/14/2018 Hiv [place] ID="encounterTypeDescriptionID0">Walk-in [facility] MEDICINE & 12:27:00 PM InfectionDiabetes ([facility] patient</td><td>Fred Marks MD INFECTIOUS EDT - [place] [facility] </td><td>[facility] MEDICINE & DISEASE 9 and Infectious INFECTIOUS 01:05:00 PM Disease) DISEASE</td><td>12/14/2018</td><td><content EDT ID="encounterDiagnosisID0-0">Hiv Infection</content>, <content ID="encounterDiagnosisID0-1">Diabetes Mellitus</content></td> Hiv Infection Diabetes [place] Medications Medication Brand Start Product Dose Route Administrative Pharmacy [facility] Indications Reaction Description Data Name Date Form Instructions Instructions Source(s) Tamsulosin Tamsul active tamsulos in [place] hydrochlori osin 2020 hydrochlorid (Metropoli de 0.4 MG HCl 12:00: e 0.4 MG [place] Oral 0.4 MG 00 AM Oral Capsule Medi cine Capsule Oral EDT and Tamsulosin Capsul Infecti ous HCl 0.4 MG e Disease) Oral Capsule dolutegravi Tivica [facility] [place] r 50 MG y 50 2020 50 [...] EST Metered Dose a nd MCG/AC Nasal [place] Infect ious T Disease) Nasal [place] paul [...] VASCEP 01/22/ CAPSULE 30 complet ISAIAS CHOUDHURY [employer] (St ethyl 1000 A:1304 2019 ed [facility] MG Oral 985 12:00: Medical, Capsule 00 AM PC) [Vascepa] EDT VASCEPA:130 4985 icosapent VASCEP 01/22/ CAPSULE 30 complet ISAIAS CHOUDHURY [employer] (St ethyl 1000 A:1304 2019 ed [facility] MG Oral 985 12:00: Medical, Capsule 00 AM PC) [Vascepa] EDT VASCEPA:130 4985 icosapent VASCEP 01/22/ CAPSULE 30 complet ISAIAS [facility] (St ethyl 1000 A:1304 2019 ed [facility] [...] MG Oral OGREL: 2019 ed [facility] Tablet 808527 12:00: Medical, CLOPIDOGREL 00 AM PC) :[id number] EST abacavir ABACAV 07/24/ complet ABACAVIR MED[facility] [...] 0488 12:00: Medical, GLIPIZIDE:3 00 AM PC) 23978 EST Fenofibrate FENOFI 07/24/ complet FENOFI BRATE [facility] (St 160 MG Oral BRATE: 2018 ed [facility] Tablet 478202 12:00: Medical, FENOFIBRATE 00 AM PC) :857175 EST Lamivudine LAMIVU 07/24/ complet LAMIVUD INE [facility] (St LAMIVUDINE: DINE:6 2018 ed [facility] 75183 8244 12:00: Medical, 00 AM PC) EST [...] 0488 12:00: Medical, GLIPIZIDE:3 00 AM PC) 35699 EST Fenofibrate FENOFI 07/24/ complet FENOFI BRATE [facility] (St 160 MG Oral BRATE: 2018 ed [facility] Tablet 101769 12:00: Medical, FENOFIBRATE 00 AM PC) :770027 EST CO Q-10: 07/24/ complet CO Q-10 MED GEN (St 2018 ed [facility] 12:00: Medical, 00 AM PC) EST Melatonin 3 MELATO complet MELATO LINO [facility] (St MG Oral LINO:2018 ed [facility] Tablet 9163 12:00: Medical, MELATONIN:1 00 AM PC) 28675 EST cobicistat PREZCO complet PREZCOB IX [facility] (St 150 MG / BIX:2018 ed [facility] darunavir 62041 12:00: Medical , 800 MG Oral 00 AM PC) Tablet EST [Prezcobix] PREZCOBIX:1 [id number] CALCIUM: complet CALCIUM MED GEN (St 2018 ed [facility] 12:00: Medical, 00 AM PC) EST Rosuvastati ROSUVA complet ROSUVA STATIN [facility] (St n calcium STATIN 2018 ed [facility] 10 MG Oral :60581 12:00: Medic al, Tablet 7 00 AM PC) ROSUVASTATI EST N:[id number] Aspirin 81 ASPIRI 07/24/ complet ASPIRIN [facility] (St MG Delayed N:3084 2018 ed [facility] Release 16 12:00: Medical, Oral Tablet 00 AM PC) ASPIRIN:308 EST 416 Metoprolol METOPR 07/24/ TABLET 30 complet METOP ROLOL [facility] (St Tartrate 25 OLOL:8 2018 ed [facility] MG Oral 22577 12:00: Medical, Tablet 00 AM PC) METOPROLOL: EST 235722 CO Q-10: 07/24/ complet CO Q-10 MED GEN (St 2018 ed [facility] 12:00: Medical, 00 AM PC) EST pioglitazon PIOGLI complet PIOGLI TAZONE [facility] (St e 30 MG TAZONE 2018 ed [facility] Oral Tablet :11796 12:00: Medi endy, PIOGLITAZON 0 00 AM PC) E:177903 EST clopidogrel CLOPID complet CLOPID OGREL [facility] (St 75 MG Oral OGREL: 2018 ed [facility] Tablet 014997 12:00: Medical, CLOPIDOGREL 00 AM PC) :[id number] EST abacavir ABACAV 07/24/ complet ABACAVIR [facility] (St 300 MG Oral IR:242 2018 ed [place] Tablet 679 12:00: Medical, ABACAVIR:24 00 AM PC) 2679 EST Metoprolol METOPR 07/24/ TABLET 30 complet METOP ROLOL [facility] (St Tartrate 25 OLOL:8 2018 ed [place] MG Oral 61990 12:00: Medical, Tablet 00 AM PC) METOPROLOL: EST 012591 pioglitazon PIOGLI 07/24/ complet PIOGLI TAZONE [facility] (St e 30 MG TAZONE 2018 ed [facility] Oral Tablet :23459 12:00: Medi endy, PIOGLITAZON 0 00 AM PC) E:361942 EST cobicistat PREZCO 07/24/ complet PREZCOB IX [facility] (St 150 MG / BIX:16 2018 ed [place] darunavir 49516 12:00: Medical , 800 MG Oral 00 AM PC) Tablet EST [Prezcobix] PREZCOBIX:1 739852 Lamivudine LAMIVU 07/24/ complet LAMIVUD INE [facility] (St LAMIVUDINE: DINE:6 2018 ed [place] 20042 8244 12:00: Medical, 00 AM PC) EST Tamsulosin TAMSUL 07/24/ complet TAMSULO SIN [facility] (St hydrochlori OSIN:2018 ed [place] de 0.4 MG [address]408 12:00: Medical , Oral 00 AM PC) Capsule EST TAMSULOSIN: 709478 Melatonin 3 MELATO 07/24/ complet MELATO LINO [facility] (St MG Oral LINO:2018 ed [place] Tablet 9163 12:00: Medical, MELATONIN:1 00 AM PC) 34922 EST Cholecalcif VITAMI 07/24/ complet VITAMI N D3 [facility] (St kyrie 1000 N 2018 ed [facility] UNT Oral D3:199 12:00: Medical , Tablet 362 00 AM PC) VITAMIN EST D3:633172 VITAMIN B 07/24/ complet VITAMIN B [facility] (St COMPLEX: 2019 ed COMPLEX [place] 12:00: Medical, 00 AM PC) EST Vitamin E VITAMI 07/24/ complet VITAMIN E [facility] (St 400 UNT N 2018 ed [place] Oral E:2377 12:00: Medical, Capsule 35 00 AM PC) VITAMIN EST E:931315 Cholecalcif VITAMI 07/24/ complet VITAMI N D3 [facility] (St kyrie 1000 N 2019 ed [facility] UNT Oral D3:199 12:00: Medical , Tablet 362 00 AM PC) VITAMIN EST D3:007025 VITAMIN B 07/24/ complet VITAMIN B [facility] (St COMPLEX: 2019 ed COMPLEX [facility] 12:00: Medical, 00 AM PC) EST Vitamin E VITAMI 07/24/ complet VITAMIN E [facility] (St 400 UNT N 2019 ed [facility] Oral E:2377 12:00: Medical, Capsule 35 00 AM PC) VITAMIN EST E:330912 Tamsulosin TAMSUL 07/24/ complet TAMSULO SIN [facility] (St hydrochlori OSIN:8 2018 ed [facility] [place] 0.4 [place] [address]720 12:00: Medical , Oral 00 AM PC) Capsule EST TAMSULOSIN: 483036 Rosuvastati ROSUVA 07/24/ complet ROSUVA STATIN [facility] (St n calcium STATIN 2018 ed [facility] 10 MG Oral :29725 12:00: Medic al, Tablet 7 00 AM PC) ROSUVASTATI EST N:791281 Aspirin 81 ASPIRI 07/24/ complet ASPIRIN [facility] (St MG Delayed N:3084 2018 ed [facility] Release 16 12:00: Medical, Oral Tablet 00 AM PC) ASPIRIN:308 EST 416 abacavir ABACAV 07/24/ complet ABACAVIR [facility] (St 300 MG Oral IR:242 2018 ed [facility] Tablet 679 12:00: Medical, ABACAVIR:24 00 AM PC) 2679 EST VITAMIN B 07/24/ complet VITAMIN B [facility] (St COMPLEX: 2018 ed [facility] 12:00: Medical, 00 AM PC) EST cobicistat PREZCO 07/24/ complet PREZCOB IX [facility] (St 150 MG / BIX:16 2018 ed [facility] darunavir 08631 12:00: Medical , 800 MG Oral 00 AM PC) Tablet EST [Prezcobix] PREZCOBIX:1 137054 pioglitazon PIOGLI 07/24/ complet PIOGLI TAZONE [facility] (St e 30 MG TAZONE 2018 ed [facility] Oral Tablet :57353 12:00: Medi endy, PIOGLITAZON 0 00 AM PC) E:113015 EST Tamsulosin TAMSUL 07/24/ complet TAMSULO SIN [facility] (St hydrochlori OSIN:2018 ed [place] de 0.4 [place] 24524 12:00: Medical , Oral 00 AM PC) Capsule EST TAMSULOSIN: 902416 Rosuvastati ROSUVA 07/24/ complet ROSUVA STATIN [facility] (St n calcium STATIN 2019 ed [facility] 10 MG Oral :52671 12:00: Medic al, Tablet 7 00 AM PC) ROSUVASTATI EST N:506401 Cholecalcif VITAMI 07/24/ complet VITAMI N D3 [facility] (St kyrie 1000 N 2018 ed [place] UNT Oral D3:199 12:00: Medical , Tablet 362 00 AM PC) VITAMIN EST D3:631369 Vitamin E VITAMI 07/24/ complet VITAMIN E [facility] (St 400 UNT N 2018 ed [place] Oral E:2377 12:00: Medical, Capsule 35 00 AM PC) VITAMIN EST E:090106 Glipizide GLIPIZ 07/24/ TABLET 30 complet GLIPIZ JORDAN [facility] (St 10 MG Oral JORDAN:2018 ed [facility] Tablet 0488 12:00: Medical, GLIPIZIDE:3 00 AM PC) 18657 EST Fenofibrate FENOFI 07/24/ complet FENOFI BRATE [facility] (St 160 MG Oral BRATE: 2018 ed [facility] Tablet 847824 12:00: Medical, FENOFIBRATE 00 AM PC) :969263 EST CO Q-10: 07/24/ complet CO Q-10 MED GEN (St 2018 ed [facility] 12:00: Medical, 00 AM PC) EST clopidogrel CLOPID 07/24/ complet CLOPID OGREL [facility] (St 75 MG Oral OGREL: 2018 ed [facility] Tablet 094765 12:00: Medical, CLOPIDOGREL 00 AM PC) :[id number] EST CALCIUM: 07/24/ complet CALCIUM MED GEN (St 2018 ed [facility] 12:00: Medical, 00 AM PC) EST Melatonin 3 MELATO 07/24/ complet MELATO LINO [facility] (St MG Oral LINO:2018 ed [facility] Tablet 9163 12:00: Medical, MELATONIN:1 00 AM PC) 35302 EST Metoprolol METOPR 07/24/ TABLET 30 complet METOP ROLOL [facility] (St Tartrate 25 OLOL:2018 ed [facility]ia'sepideh MG Oral 69406 12:00: Medical, Tablet 00 AM PC) METOPROLOL: EST 998258 sitagliptin JANUVI 07/24/ complet JANUVI A [facility] (St 25 MG Oral A:6650 2018 ed [facility] Tablet 40 12:00: Medical, [Januvia] 00 AM PC) JANUVIA:665 EST 040 Lamivudine LAMIVU 07/24/ complet LAMIVUD INE [facility] (St LAMIVUDINE: DINE:6 2018 ed [facility] 63429 8244 12:00: Medical, 00 AM PC) EST [...] Oral Tablet EDT and Tablet Infectious Disease) [place]-3 [place]- active omega-3 aci d MERRY Acid Ethyl 3-acid 2015 ethyl esters (Metropoli Esters Ethyl 12:00: (MCC) 1000 [place] (MCC) 1000 Esters 00 AM MG Oral Med icine MG Oral 1 GM EDT Capsule and Capsule Capsul Infectious [place]-3-aci e Disease) d Ethyl Esters 1 GM [...] Disease) Dihydrochlo Tablet ride 5 MG Tablet [place]-3 Lovaza complet omega-3 ac id MERRY Acid Ethyl 1 GM 2013 ed ethyl esters ( [facility] Esters [place] 12:00: (MCC) 1000 [place] (MCC) 1000 CAPS 00 AM MG Oral Medic [...] and TABS } Pack Infectious [Z-PK] Disease) [place]-3 Lovaza complet omega-3 ac id MERRY Acid Ethyl 1 GM 2012 ed ethyl esters ( Metropoli Esters [place] 12:00: (MCC) 1000 [place] (MCC) 1000 CAPS 00 AM MG Oral Medic [...] Infectious Disease) Nystatin Nystat complet nystatin MERRY 642141 in-Tri 2012 ed 307218 (Metropol i UNT/ML / amcino 12:00: UNT/ML / [place] Triamcinolo lone 00 AM triamcinolon Medicine [place] 987590 EDT e acetonide and Acetonide 1 -0.1 1 MG/ML Infec tious MG/ML UNIT/G Topical Disease) Topical M-% EX Cream Cream CREA Nystatin-Tr iamcinolone 776086-6.1 UNIT/GM-% EX CREA Levofloxaci Levaqu complet levofl [...] Metered Dose Medici ne SUSP EDT Nasal [place] and [Nasonex] Infectious Disease) darunavir Prezis complet [...] Infectious Didanosine Disease) 125 MG OR CPDR [place]-3 Lovaza complet omega-3 ac id MERRY Acid Ethyl 1 GM 2011 ed ethyl esters ( Metropoli Esters [place] 12:00: (MCC) 1000 [place] (MCC) 1000 CAPS 00 AM MG Oral Medic [...] Inform ation relationship to truong BLUE [place]OSS [id number] SP [id number] [facility] MEDICAID [id number] SP [id number] [place] [id number] SP [id number] [facility] DUAL [id number] SP [id number] 37 COMPLETE EMPIRE BC/BS [id number] 1 [id number] MEDICAID OF [id number] 1 [id number] [place] MEDICARE [id number] [id number] [facility] Medicaid of Supplemental 0 Self 0 [place] Policy [facility] Individual 0 Self 0 Behavioral Policy [facility] [id number] SP [id number] HEALTHCARE (MEDICARE) IME MEDICARE [id number] SP [id number] [facility] OF [id number] SP [id number] [facility] [id number] SP [id number] Medicaid of Supplemental 0 Self 0 [place] Policy BCBS of [place] Individual 0 Self 0 [place] Policy Medicaid of Supplemental 0 Self 0 [place] Policy BCBS of [place] Individual 0 Self 0 [place] Policy BLUE [place]OSS O [id number] 01 [id number] MEDIBLUE OP O [id number] 01 [id number] 01 [id number] A Medicaid of Supplemental 0 Self 0 [place] Policy BCBS of [place] Individual 0 Self 0 [place] Policy [place]OSS [id number] SP [id number] SENIOR PLAN [place]UE [place]OSS [id number] SP [id number] SENIOR PLAN BC HMO [id number] SP [id number] BCBS of [place] Policy 0 Self 0 [place] Medicare Part Medicare 0 Self 0 B of [place] Primary - [place] BC/BS Medicare Part Medicare 0 Self 0 B of [place] Primary - [place] BC/BS BC INDEMNITY [id number] SP [id number] MEDICARE [id number] SP [id number] MEDICAID [id number] SP [id number] MEDICARE [id number] SP [id number] MEDICARE [id number] SP [id number] A Problems, Conditions, and Diagnoses Code Display [...] J ohn's (severe) (SEVERE) EST Medical, PC) 63156117 Human Hiv Infection Problem 05/15/2018 MERRY immunodeficiency 12:00:00 AM (Metrop [place]itan virus infection EST [place] Medici ne (disorder) and Infectious Disease) 22767694 Human Hiv Infection Problem 05/15/2018 MERRY immunodeficiency 12:00:00 AM ([place] virus infection EST [place] Medici [place] (disorder) and Infectious Disease) 81860213 Human Hiv Infection Problem 05/15/2018 MERRY immunodeficiency 12:00:00 AM ([place] virus infection EST [place] Medici [place] (disorder) and Infectious Disease) 61253923 Human Hiv Infection Problem 05/15/2018 MERRY immunodeficiency 12:00:00 AM ([place] virus infection EST [place] Medici [place] (disorder) and Infectious Disease) 68846170 Human Hiv Infection Problem 05/15/2018 MERRY immunodeficiency 12:00:00 AM ([place] virus infection EST [place] Medici [place] (disorder) and Infectious Disease) 41651975 Human Hiv Infection Problem 05/15/2018 MERRY immunodeficiency 12:00:00 AM ([place] virus infection EST [place] Medici [place] (disorder) and Infectious Disease) 26115617 Human Hiv Infection Problem 05/15/2018 MERR[place] immunodeficiency 12:00:00 AM ([place] virus infection EST [place] Medici [place] (disorder) and Infectious Disease) 042. 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 Immunodeficiency Immunodeficiency 12:00:00 AM ( [facility] Virus [hiv] Virus [hiv] [facility] Medicine and Infectious Disease) 692.9 Contct Dermatit&oth Contct Dermatit&oth Problem 012 MERRY Eczema-Uns Caus Eczema-Uns Caus 12:00:00 AM ([facility] Medicine and Infectious Disease) 49125784 Diabetes mellitus Diabetes Mellitus Problem 10/07/2011 MERRY (disorder) 12:00:00 AM ([facility] Medicine and Infectious Disease) 789901587 Chronic kidney Chronic Renal Problem 10/07/2011 [place] disease (disorder) Failure 12:00:00 AM ([facility] Medicine and Infectious Disease) 042. 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/2011 [place] Immunodeficiency Immunodeficiency 12:00:00 AM ( [facility] Virus [hiv] Virus [hiv] [facility] Medicine and Infectious Disease) 692.9 Contct Dermatit&oth Contct Dermatit&oth Problem 012 [place] Eczema-Uns Caus Eczema-Uns Caus 12:00:00 AM ([facility] Medicine and Infectious Disease) 157639571 Chronic kidney Chronic Renal Problem 10/07/2011 [place] disease (disorder) Failure 12:00:00 AM ([facility] Medicine and Infectious Disease) 96976180 Diabetes mellitus Diabetes Mellitus Problem 10/07/2011 [place] (disorder) 12:00:00 AM ([facility] Medicine and Infectious Disease) 042. 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/2011 [place] Immunodeficiency Immunodeficiency 12:00:00 AM ( [facility] Virus [hiv] Virus [hiv] [facility] Medicine and Infectious Disease) 692.9 Contct Dermatit&oth Contct Dermatit&oth Problem 012 MERRY Eczema-Uns Caus Eczema-Uns Caus 12:00:00 AM ([facility] Medicine and Infectious Disease) 378327110 Chronic kidney Chronic Renal Problem 10/07/2011 [place] disease (disorder) Failure 12:00:00 AM ([facility] Medicine and Infectious Disease) 60212543 Diabetes mellitus Diabetes Mellitus Problem 10/07/2011 MERRY (disorder) 12:00:00 AM ([facility] Medicine and Infectious Disease) 042. 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 Immunodeficiency Immunodeficiency 12:00:00 AM ( [facility] Virus [hiv] Virus [hiv] [facility] Medicine and Infectious Disease) 692.9 Contct Dermatit&oth Contct Dermatit&oth Problem 012 MERRY Eczema-Uns Caus Eczema-Uns Caus 12:00:00 AM ([facility] Medicine and Infectious Disease) [id number] Chronic kidney Chronic Renal Problem 10/07/2011 [place] disease (disorder) Failure 12:00:00 AM ([facility] Medicine and Infectious Disease) 26688098 Diabetes mellitus Diabetes Mellitus Problem 10/07/2011 [place] (disorder) 12:00:00 AM ([facility] Medicine and Infectious Disease) 042. 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 Immunodeficiency Immunodeficiency 12:00:00 AM ( [facility] Virus [hiv] Virus [hiv] [facility] Medicine and Infectious Disease) 692.9 Contct Dermatit&oth Contct Dermatit&oth Problem 012 MERRY Eczema-Uns Caus Eczema-Uns Caus 12:00:00 AM ([facility] Medicine and Infectious Disease) [id number] Chronic kidney Chronic Renal Problem 10/07/2011 [place] disease (disorder) Failure 12:00:00 AM ([facility] Medicine and Infectious Disease) 80454055 Diabetes mellitus Diabetes Mellitus Problem 10/07/2011 MERRY (disorder) 12:00:00 AM ([facility] Medicine and Infectious Disease) 042. 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 Immunodeficiency Immunodeficiency 12:00:00 AM ( [facility] Virus [hiv] Virus [hiv] [facility] Medicine and Infectious Disease) 692.9 Contct Dermatit&oth Contct Dermatit&oth Problem 012 MERRY Eczema-Uns Caus Eczema-Uns Caus 12:00:00 AM ([facility] Medicine and Infectious Disease) [id number] Chronic kidney Chronic Renal Problem 10/07/2011 [place] disease (disorder) Failure 12:00:00 AM ([facility] Medicine and Infectious Disease) [id number] Diabetes mellitus Diabetes Mellitus Problem 10/07/2011 [place] (disorder) 12:00:00 AM ([facility] Medicine and Infectious Disease) 042. 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/2011 [place] Immunodeficiency Immunodeficiency 12:00:00 AM ( [facility] Virus [hiv] Virus [hiv] [facility] Medicine and Infectious Disease) 692.9 Contct Dermatit&oth Contct Dermatit&oth Problem 012 [place] Eczema-Uns Caus Eczema-Uns Caus 12:00:00 AM ([facility]ly [facility] Medicine and Infectious Disease) [id number] Chronic kidney Chronic Renal Problem 10/07/2011 [facility] Y disease (disorder) Failure 12:00:00 AM ([facility]ly [facility] Medicine and Infectious Disease) [id number] Diabetes mellitus Diabetes Mellitus Problem 10/07/2011 [place] (disorder) 12:00:00 AM ([facility] Medicine and Infectious Disease) E11.9 Type 2 diabetes TYPE 2 DIABETES Diagnosis 09/27/2019 Amie Fountain mellitus without MELLITUS WITHOUT 11:18:00 AM M edical complications COMPLICATIONS EDT Center J06.9 Acute upper ACUTE UPPER Diagnosis 09/27/2019 [facility] respiratory RESPIRATORY 11:18:00 AM Medical infection, INFECTION, EDT Center unspecified UNSPECIFIED R05 Cough COUGH Diagnosis 09/27/2019 [facility] 11:18:00 AM Medical EDT Center [...] PC) Reported medical Reported medical history 02/13/2020 [place] history - DM, HTN, - DM, HTN, HIV, CKD 12:00:00 ( [facility] HIV, CKD AM EDT Medicine and Infectious Disease) Surgical / procedural Surgical / procedural 02/13/2020 [place] history - (R) history - (R) Carotid 12:00:[facility] [place] [facility] AM EDT Medicine and Endarterectomy Infectious Disease) Clinical summary 01/28/2020 [place] provided to patient 12:00:00 ([facility] AM EDT - Medicine and 01/28/2020 Infectious 12:00:00 Disease) AM EDT continue current 01/28/2020 [place] medication 12:00:00 ([facility] Y AM EDT - Medicine and 01/28/2020 Infectious 12:00:00 Disease) AM EDT Reported medical Reported medical history 12/27/2019 [place] history - DM, HTN, - DM, HTN, HIV, CKD 12:00:00 ( [facility] HIV, CKD AM EDT Medicine and Infectious Disease) Surgical / procedural Surgical / procedural 12/27/2019 [place] history - (R) history - (R) Carotid 12:00:00 ([facility] Carotid Endarterectomy AM EDT Medicine and Endarterectomy Infectious Disease) Clinical summary 12/27/2019 [place] provided to patient 12:00:[facility] [place] [facility] - Medicine and 12/27/2019 Infectious 12:00:00 Disease) AM EDT continue current 12/27/2019 [place] medication 12:00:00 ([facility] N AM EDT - Medicine and 12/27/2019 Infectious 12:00:00 Disease) AM EDT Reported medical Reported medical history 11/22/2019 [place] history - DM, HTN, - DM, HTN, HIV, CKD 12:00:00 ( [facility] HIV, CKD AM EDT Medicine and Infectious Disease) Surgical / procedural Surgical / procedural 11/22/2019 [place] history - (R) history - (R) Carotid 12:00:00 ([facility] Carotid Endarterectomy AM EDT Medicine and Endarterectomy Infectious Disease) Clinical summary 11/22/2019 [place] provided to patient 12:00:00 ([facility] AM EDT - Medicine and 11/22/2019 Infectious 12:00:00 Disease) AM EDT continue current 11/22/2019 [place] medication 12:00:00 ([facility] EDT - Medicine and 11/22/2019 Infectious 12:00:00 Disease) AM EDT COLLECTION VENOUS Routine 11/22/2019 [place] BLOOD VENIPUNCTURE Venipunctfingerheel Stick 12:00:00 ([facility] AM EDT Medicine and Infectious Disease) Reported medical Reported medical history 09/14/2019 [place] history - DM, HTN, - DM, HTN, HIV, CKD 12:00:00 ( [facility] HIV, CKD AM EDT Medicine and Infectious Disease) Surgical / procedural Surgical / procedural 09/14/2019 [place] history - (R) history - (R) Carotid 12:00:00 ([facility] Carotid Endarterectomy AM EDT Medicine and Endarterectomy Infectious Disease) Clinical summary 09/14/2019 [place] provided to patient 12:00:00 ([facility] AM EDT - Medicine and 09/14/2019 [...] - DM, HTN, HIV, CKD 12:00:00 ( [facility] HIV, CKD AM EDT Medicine and Infectious Disease) Surgical / procedural Surgical / procedural 02/22/2019 [place] history - (R) history - (R) Carotid 12:00:00 ([facility] Carotid Endarterectomy AM EDT Medicine and Endarterectomy Infectious Disease) Reported medical Reported medical history 02/22/2019 [place] history - DM, HTN, - DM, HTN, HIV, CKD 12:00:00 ( [facility] HIV, CKD AM EDT Medicine and Infectious Disease) Surgical / procedural Surgical / procedural 02/22/2019 [place] history - (R) history - (R) Carotid 12:00:00 ([facility]STELL[facility] Carotid Endarterectomy AM EDT Medicine and Endarterectomy Infectious Disease) Clinical summary 02/22/2019 [place] provided to patient 12:00:00 (Johnathon CASTELLANOS AM EDT - Medicine and 02/22/2019 Infectious 12:00:00 Disease) AM EDT Education (procedure) 02/22/2019 [place] 12:00:00 ([facility] Y AM EDT - Medicine and 02/22/2019 Infectious 12:00:00 Disease) AM EDT continue current 02/22/2019 [place] medication 12:00:00 ([facility] N Y AM EDT - Medicine and [...] 12:00:00 Disease) AM EDT continue current 12/14/2018 [place] medication 12:00:00 ([facility] N Y AM EDT - Medicine and 12/14/2018 Infectious 12:00:00 Disease) AM EDT COLLECTION VENOUS Routine 12/14/2018 [place] BLOOD VENIPUNCTURE Venipunctfingerheel Stick 12:00:00 ([facility] AM EDT Medicine and Infectious Disease) Documentation [...] EST PC) Results ID Date Data Source [id number] 03/16/2020 12:00:00 AM EDT [facility] ([facility] Name Value Range Interpretation Code Description Data Supporting Source(s) Document(s ) PTH, Intact 11 pg/mL Below low normal [facility] ([facility]) ID Date Data Source [id number] 03/16/2020 12:00:00 AM EDT [facility] ([facility] Name Value Range Interpretation Code Description Data Supporting Source(s) Document(s ) Ferritin, 376 ng/mL Normal (applies to [facility] (St Serum non-numeric Nadia's results) [facility], ) ID Date Data Source [id number] 03/16/2020 12:00:00 AM EDT [facility] ([facility]) Name Value Range Interpretation Description Data Sup porting Code Source(s) Document(s ) Deprecated 3.1 mg/dL Normal (applies to [facility] (St Phosphorus non-numeric Nadia's [Mass/time] in results) [facility], ) 24 hour Urine ID Date Data Source [id number] 03/16/2020 12:00:00 AM EDT [facility]) Name Value Range Interpretation Description Data Sup porting Code Source(s) Document(s ) Vitamin D, 30.3 Normal [facility] (St 25-Hydroxy ng/mL non-numeric Nadia's results) [facility], ) ID Date Data Source [id number] 03/16/2020 12:00:00 AM EDT [facility] ([facility], ) Name Value Range Interpretation Code Description Data Supporting Source(s) Document(s ) Protein,To 20.9 mg/dL Normal ([facility] (S t [place],Urine non-numeric Nadia's results) [facility]) Creatinine 83.2 mg/dL Normal (applies to [facility] (S t , Urine non-numeric Nadia's results) [facility], ) Protein/Cr 251 mg/g Above high normal [facility] (St eat Ratio creat [facility], ) ID Date Data Source [id number] 03/16/2020 12:00:00 AM EDT [facility], ) Name Value Range Interpretation Description Data Sup porting Code Source(s) Document(s ) Iron 333 ug/dL Normal (applies to [facility] (St Bind.Cap.(TIBC non-numeric Nadia's ) results) [facility], ) Iron 78 ug/dL Normal (applies to [facility] (St [Mass/volume] non-numeric Nadia's in Serum or results) [facility], ) Plasma UIBC 255 ug/dL Normal (applies to [facility] (St non-numeric Nadia's results) [facility], ) Iron 23 % Normal (applies to [facility] (St saturation non-numeric Nadia's [Mass results) [facility], [facility]) Fraction] in Serum or Plasma ID Date Data Source [id number] 03/16/2020 12:00:00 AM EDT [facility] ([facility], ) Name Value Range Interpretation Description [...] by Light microscopy ID Date Data Source [id number] 03/16/2020 12:00:00 AM EDT [facility] ([facility], ) Name Value Range Interpretation Description [...] results) Medical, ) ID Date Data Source [id number] 03/16/2020 12:00:00 AM EDT [facility] ([facility], ) Name Value Range Interpretation Description [...] MEDGE N (St Am mL/min/1 Nadia's .73 [facility], ) Potassium 4.6 Normal (applies [facility] [...] Serum or Plasma ID Date Data Source [id number] 03/16/2020 12:00:00 AM EDT [facility] ([facility]) Name Value Range Interpretation Description Data Sup porting Code Source(s) Document(s ) Leukocytes 7.8 Normal (applies [facility] (St [#/volume] in x10E3/uL to non-numeric Nadia's Blood by results) [facility], ) Automated count Erythrocytes 4.20 Normal (applies [facility] (St [#/volume] in x10E6/uL to non-numeric Nadia's Blood by results) [facility], ) Automated count Hemoglobin 13.5 Normal (applies [facility] (St [Mass/volume] in g/dL to non-numeric Nadia's Blood results) [facility], ) Hematocrit 40.3 % Normal (applies [facility] (St [Volume to non-numeric Nadia's Fraction] of results) [facility], ) Blood by Automated count MCV 96 fL Normal (applies [facility] (St to non-numeric Nadia's results) [facility], ) MCHC 33.5 Normal (applies [facility] (St g/dL to non-numeric Nadia's results) [facility], ) MCH 32.1 pg Normal (applies [facility] (St to non-numeric Nadia's results) [facility], ) RDW 11.8 % Normal (applies [facility] (St to non-numeric Nadia's results) [facility], ) Neutrophils [#] 50 % Normal (applies [facility] ( St in Body fluid by to non-numeric Nadia's Manual count results) [facility], ) Platelets 210 Normal (applies [facility] (St [#/area] in x10E3/uL to non-numeric Nadia's Blood by results) [facility], ) Microscopy high power field Lymphs 37 % Normal (applies [facility] (St to non-numeric Nadia's results) [facility], ) Monocytes 8 % Normal (applies [facility] (St [#/volume] in to non-numeric Nadia's Cord blood results) [facility], ) Eos 5 % Normal (applies [facility] (St to non-numeric Nadia's results) [facility], ) Basos 0 % Normal (applies [facility] (St to non-numeric Ndaia's results) [facility], ) Neutrophils 3.9 Normal (applies [facility] (St (Absolute) x10E3/uL to non-numeric Nadia's results) [facility], ) Monocytes(Absolu 0.6 Normal (applies [facility] (St te) x10E3/uL to non-numeric Nadia's results) [facility], ) Lymphs 2.9 Normal (applies [facility] (St (Absolute) x10E3/uL to non-numeric Nadia's results) [facility], ) Immature 0 % Normal (applies [facility] (St Granulocytes to non-numeric Nadia's results) [facility], ) Baso (Absolute) 0.0 Normal (applies [facility] ( St x10E3/uL to non-numeric Nadia's results) [facility], ) Eos (Absolute) 0.4 Normal (applies [facility] (S t x10E3/uL to non-numeric Nadia's results) [facility], ) Immature Grans 0.0 Normal (applies [facility] (S t (Abs) x10E3/uL to non-numeric Nadia's results) [facility], ) ID Date Data Source [id number] 03/16/2020 12:00:00 AM EDT [facility] ([facility], ) Name Value Range Interpretation Code Description Data Supporting Source(s) Document(s ) PTH, Intact 11 pg/mL Below low normal [facility] ([facility], ) ID Date Data Source [id number] 03/16/2020 12:00:00 AM EDT [facility] ([facility], ) Name Value Range Interpretation Code Description Data Supporting Source(s) Document(s ) Ferritin, 376 ng/mL Normal (applies to [facility] (St Serum non-numeric Nadia's results) [facility], ) ID Date Data Source [id number] 03/16/2020 12:00:00 AM EDT [facility] ([facility], ) Name Value Range Interpretation Description Data Sup porting Code Source(s) Document(s ) Deprecated 3.1 mg/dL Normal (applies to [facility] (St Phosphorus non-numeric Nadia's [Mass/time] in results) [facility], ) 24 hour Urine ID Date Data Source [id number] 03/16/2020 12:00:00 AM EDT [facility] ([facility], ) Name Value Range Interpretation Description Data Sup porting Code Source(s) Document(s ) Vitamin D, 30.3 Normal (applies to [facility] (St 25-Hydroxy ng/mL non-numeric Nadia's results) [facility]) ID Date Data Source [id number] 03/16/2020 12:00:00 AM EDT [facility] ([facility], ) Name Value Range Interpretation Code Description Data Supporting Source(s) Document(s ) Creatinine 83.2 mg/dL Normal (applies to [facility] (S t , Urine non-numeric Nadia's results) Medical, ) Protein,To 20.9 mg/dL Normal (applies to [facility] (S [place],Urine non-numeric Nadia's results) Medical, ) Protein/Cr 251 mg/g Above high normal [facility] (St eat Ratio creat [facility], ) ID Date Data Source [id number] 03/16/2020 12:00:00 AM EDT [facility] ([facility], ) Name Value Range Interpretation Description Data Sup porting Code Source(s) Document(s ) Iron 333 ug/dL Normal (applies to [facility] (St Bind.Cap.(TIBC non-numeric Nadia's ) results) Medical, ) UIBC 255 ug/dL Normal (applies to [facility] (St non-numeric Nadia's results) [facility], ) Iron 23 % Normal (applies to [facility] (St saturation non-numeric Nadia's [Mass results) Medical, ) Fraction] in Serum or Plasma Iron 78 ug/dL Normal (applies to [facility] (St [Mass/volume] non-numeric Nadia's in Serum or results) [facility], ) Plasma ID Date Data Source [id number] 03/16/2020 12:00:00 AM EDT [facility] ([facility], ) Name Value Range Interpretation Description [...] by Light microscopy ID Date Data Source [id number] 03/16/2020 12:00:00 AM EDT [facility] ([facility] [...] results) Medical, PC) ID Date Data Source [id number] 03/16/2020 12:00:00 AM EDT [facility] ([facility] [...] Below low normal MED[facility] N (St mL/min/[address], ) eGFR If NonAfricn 28 Below low normal [facility] N (St Am mL/min/[address], ) Sodium 137 Normal (applies [facility] [...] to non-numeric Nadia's Serum or Plasma results) [facility], ) Alkaline 49 IU/L Normal (applies [...] Serum or Plasma ID Date Data Source [id number] 03/16/2020 12:00:00 AM EDT [facility] ([facility], ) Name Value Range Interpretation Description Data Sup porting Code Source(s) Document(s ) Leukocytes 7.8 Normal (applies [facility] (St [#/volume] in x10E3/uL to non-numeric Nadia's Blood by results) Medical, ) Automated count Erythrocytes 4.20 Normal (applies [facility] (St [#/volume] in x10E6/uL to non-numeric Nadia's Blood by results) [facility], ) Automated count Hemoglobin 13.5 Normal (applies [facility] (St [Mass/volume] in g/dL to non-numeric Nadia's Blood results) [facility], ) Hematocrit 40.3 % Normal (applies [facility] (St [Volume to non-numeric Nadia's Fraction] of results) [facility], ) Blood by Automated count MCHC 33.5 Normal (applies [facility] (St g/dL to non-numeric Nadia's results) Medical, ) MCH 32.1 pg Normal (applies [facility] (St to non-numeric Nadia's results) [facility], ) MCV 96 fL Normal (applies [facility] (St to non-numeric Nadia's results) [facility], ) RDW 11.8 % Normal (applies [facility] (St to non-numeric Nadia's results) [facility], ) Platelets 210 Normal (applies [facility] (St [#/area] in x10E3/uL to non-numeric Nadia's Blood by results) [facility], ) Microscopy high power field Neutrophils [#] 50 % Normal (applies [facility] ( St in Body fluid by to non-numeric Nadia's Manual count results) Medical, ) Lymphs 37 % Normal (applies [facility] (St to non-numeric Nadia's results) Medical, ) Monocytes 8 % Normal (applies [facility] (St [#/volume] in to non-numeric Nadia's Cord blood results) [facility], ) Eos 5 % Normal (applies [facility] (St to non-numeric Nadia's results) [facility], ) Basos 0 % Normal (applies [facility] (St to non-numeric Nadia's results) Medical, ) Monocytes(Absolu 0.6 Normal (applies [facility] (St te) x10E3/uL to non-numeric Nadia's results) [facility], ) Neutrophils 3.9 Normal (applies [facility] (St (Absolute) x10E3/uL to non-numeric Nadia's results) [facility], ) Lymphs 2.9 Normal (applies [facility] (St (Absolute) x10E3/uL to non-numeric Nadia's results) [facility], ) Eos (Absolute) 0.4 Normal (applies [facility] (S t x10E3/uL to non-numeric Nadia's results) [facility], ) Baso (Absolute) 0.0 Normal (applies [facility] ( St x10E3/uL to non-numeric Nadia's results) [facility], ) Immature 0 % Normal (applies [facility] (St Granulocytes to non-numeric Nadia's results) [facility], ) Immature Grans 0.0 Normal (applies [facility] (S t (Abs) x10E3/uL to non-numeric Nadia's results) [facility], ) ID Date Data Source [id number] 02/01/2020 02:18:00 PM EDT [facility] Name Value Range Interpretation Description Data Sup porting Code Source(s) Document(s ) SARS [facility] coronavirus 2 RNA This lab was ordered by [facility] and reported by [facility]. ID Date Data Source [id number] 01/29/2020 09:27:00 AM EDT MERRY ([facility] Medicine and Infectious Disease) Name Value Range Interpretation Description Data Sup porting Code Source(s) Document(s ) HIV 1 RNA <20 Above high HIV 1 RNA, QN MERRY [#/volume] Detected normal PCR ([facility] (viral load) in copies/mL n [place] Serum or Plasma Medicine and by Probe and Infectious target Disease) amplification method HIV 1 RNA [Log <1.30 Above high HIV 1 RNA, QN MERRY #/volume] Detected normal PCR ([facility] (viral load) in log_copies n [place] Plasma by Probe /mL Medicine and and target Infectious amplification Disease) method Note: HIV-1 RNA was detected be low 20 copies/mL. Viral nucleic acid detected below this level cannot be colt tified by the assay. The test was performed using Real Time Polym erase Chain Reaction. Reportable Range: 20 copies/mL to 10,000 ,000 copies/mL (1.30-7.00 Log copies/mL). ID Date Data Source [id number] 01/29/2020 09:27:00 AM EDT MERRY ([facility] Medicine and Infectious Disease) Name Value Range Interpretation Description Data Sup porting Code Source(s) Document(s ) CD3 cells/100 75 Percent Normal (applies % CD3 MERRY cells in Blood to non-numeric ([facility] results) n [place] Medicine and Infectious Disease) CD19 cells 260 Normal (applies ABSOLUTE CD19 MERRY [#/volume] in Cells/mcL to non-numeric CELLS ([facility] a Blood results) n [place] Medicine and Infectious Disease) CD3-CD16+CD56+ 17 Percent Normal (applies % CD16+CD56+ [address] (Natural to non-numeric ([facility] killer) results) [facility] cells/100 Medicine and cells in Blood Infectious Disease) CD19 cells/100 7 Percent Normal (applies % CD19 MERRY cells in Blood to non-numeric ([facility] results) [facility] Medicine and Infectious Disease) CD3 cells 2734 Normal (applies ABSOLUTE CD3 MERRY [#/volume] in Cells/mcL to non-numeric CELLS ([facility] a Blood results) n [place] Medicine and Infectious Disease) CD3+CD4+ (T4 0.22 Ratio Below low normal CD4/CD8 RAT[address] helper) ([facility] cells/CD3+CD8+ n [place] (T8 suppressor Medicine and cells) cells Infectious [# Ratio] in Disease) Blood Lymphocytes 3650 Normal (applies ABSOLUTE MERRY [#/volume] in Cells/mcL to non-numeric LYMPHOCYTES ([facility] Blood by results) n [place] Automated Medicine and count Infectious Disease) Note: The Lymphocyte Subset ref erence ranges were implemented on April 08, 2016. CD3+CD4+ (T4 13 Percent Below low %CD4 MERRY helper) cells/100 normal ([facility] cells in Blood Medicine and Infectious Disease) CD3-CD16+CD56+ 630 Cells/mcL Normal ABSOLUTE MERRY (Natural killer) (applies to CD16+CD56+ ([facility] cells [#/volume] non-numeric CELLS Medicine an d in Blood results) Infectious Disease) CD3+CD8+ (T8 2217 Cells/mcL Above high ABSOLUTE CD8 MERRY suppressor cells) normal CELLS ([facility] cells [#/volume] Medicine and in Blood Infectious Disease) Cells.CD3+CD4+CD8+ 18 Cells/mcL Normal ABS MERRY (Double positive) (applies to CD3+CD4+CD8+ ([facility] [place] [#/volume] in non-numeric CELLS Medicine and Blood results) Infectious Disease) Cells.CD3+CD4+CD8+ 0 Percent Normal % CD3+CD4+CD8+ [place] (Double (applies to ([facility] positive)/100 non-numeric Medicine and cells in Blood results) Infectious Dise ase) CD3+CD4+ (T4 479 Cells/mcL Below low ABSOLUTE CD4 MERRY helper) cells normal CELLS ([facility] [#/volume] in Medicine and Blood Infectious Disease) CD3+CD8+ (T8 61 Percent Above high %CD8 MERRY suppressor cells) normal ([facility] [place] cells/100 cells in Medicine an d Blood Infectious Disease) % CD3+CD4-CD8- 0 Percent Normal % CD3+CD4-CD8- MERRY (applies to ([facility] non-numeric Medicine and results) Infectious Disease) ABS CD3+CD4-CD8- 11 Cells/mcL Normal ABS MERRY CELLS (applies to CD3+CD4-CD8- ([facility] Y non-numeric CELLS Medicine and results) Infectious Disease) % 6 Percent Normal % MERRY CD3+/(CD56+CD16+) (applies to CD3+/(CD56+CD16 ([facility] non-numeric +) Medicine and results) Infectious Disease) ABS 232 Cells/mcL Normal ABS MERRY CD3+/(CD56+CD16+) (applies to CD3+/(CD56+CD16 ([facility] non-numeric +) Medicine and results) Infectious Disease) ID Date Data Source [id number] 01/29/2020 09:27:00 AM EDT MERRY ([facility] Medicine and Infectious Disease) Name Value Range Interpretation Description Data Sup porting Code Source(s) Document(s ) Hemoglobin 7.7 Above high normal HEMOGLOBIN A1C [place] A1c/Hemoglobi %_of_tot ([place].total in al_Hgb [place] Medicine Blood and Infectious Disease) Note: For [...] f or children. ID Date Data Source [id number] 01/29/2020 09:27:00 AM EDT MERRY ([facility] Medicine and Infectious Disease) Name Value Range Interpretation Description Data Source(s ) Supporting Code Document(s ) Cell See Note Normal (applies to DIFFERENTIAL MERRY Fractions/ non-numeric ([facility]) [place] Medicine al and Infectious [Interpret Disease) ation] in Blood Note: An instrument differentia l was performed. Leukocytes 7.9 Thousand/uL Normal (applies WBC [place] [#/volume] in to non-numeric ([facility] Blood by Automated results) Medicine an d count Infectious Disease) Hematocrit [Volume 39.4 % Normal (applies HEMATOCRIT GREE NWAY Fraction] of Blood to non-numeric ([facility] by Automated count results) Medicine an d Infectious Disease) Monocytes/100 7.9 % Normal (applies MONOCYTES,% MERRY leukocytes in to non-numeric ([facility] Blood by Automated results) Medicine an d count Infectious Disease) Eosinophils/100 5.0 % Normal (applies EOSINOPHILS,% GREE NWAY leukocytes in to non-numeric ([facility] Blood by Automated results) Medicine an d count Infectious Disease) Basophils 47 cells/uL Normal (applies BASOPHILS,ABSO [place] [#/volume] in to non-numeric LUTE ([facility] Blood by Automated results) Medicine an d count Infectious Disease) Eosinophils 395 cells/uL Normal (applies EOSINOPHILS,AB GREE NWAY [#/volume] in to non-numeric SOLUTE ([facility] Blood by Automated results) Medicine an d count Infectious Disease) Basophils/100 0.6 % Normal (applies BASOPHILS,% MERRY leukocytes in to non-numeric ([facility] Blood by Automated results) Medicine an d count Infectious Disease) Hemoglobin 13.3 g/dL Normal (applies HEMOGLOBIN MERRY [Mass/volume] in to non-numeric ([facility] Blood results) Medicine and Infectious Disease) Lymphocytes 3239 cells/uL Normal (applies LYMPHOCYTES,AB GRE ENWAY [#/volume] in to non-numeric SOLUTE ([facility] Blood by Automated results) Medicine an d count Infectious Disease) Lymphocytes/100 41.0 % Normal (applies TOTAL MERRY leukocytes in to non-numeric LYMPHOCYTES,% ([facility] Blood by Automated results) Medicine an d count Infectious Disease) Monocytes 624 cells/uL Normal (applies MONOCYTES,ABSO GREENW AY [#/volume] in to non-numeric LUTE ([facility] Blood by Automated results) Medicine an d count Infectious Disease) Neutrophils/100 45.5 % Normal (applies TOTAL MERRY leukocytes in to non-numeric NEUTROPHILS,% ([facility] Blood by Automated results) Medicine an d count Infectious Disease) Platelets 186 Thousand/uL Normal (applies PLATELET COUNT GRE [place] [#/volume] in to non-numeric ([facility] Blood by Automated results) Medicine an d count Infectious Disease) Neutrophils 3595 cells/uL Normal (applies NEUTROPHILS,AB GRE [place]AY [#/volume] in to non-numeric SOLUTE ([facility] Blood by Automated results) Medicine an d count Infectious Disease) Platelet mean 10.4 fL Normal (applies MPV MERRY volume [Entitic to non-numeric ([facility] volume] in Blood results) Medicine and by Sadaf Infectious Disease) Erythrocyte mean 33.1 pg Above high MCH MERRY corpuscular normal ([facility] hemoglobin Medicine and [Entitic mass] by Infectious Automated count Disease) Erythrocyte mean 98.0 fL Normal (applies MCV GREENWA Y corpuscular volume to non-numeric ([facility] [Entitic volume] results) Medicine and by Automated count Infectious Disease) Erythrocyte 12.4 % Normal (applies RDW MERRY distribution width to non-numeric ([facility] [Ratio] by results) Medicine and Automated count Infectious Disease) Erythrocyte mean 33.8 g/dL Normal (applies MCHC GREENWA Y corpuscular to non-numeric ([facility] hemoglobin results) Medicine and concentration Infectious [Mass/volume] by Disease) Automated count Erythrocytes 4.02 Million/uL Below low normal RBC GREE NWAY [#/volume] in ([facility] Blood by Automated Medicine an d count Infectious Disease) ID Date Data Source [id number] 01/29/2020 09:27:00 AM EDT MERRY [facility] Name Value Range Interpretation Description Data Sup porting Code Source(s) Document(s ) Alanine 19 U/L Normal (applies ALT MERRY aminotransferase to non-numeric ([facility] [Enzymatic results) n [place] activity/volume] Medicine and in Serum or Plasma Infectious Disease) Albumin 4.0 Normal (applies ALBUMIN MERRY [Mass/volume] in g/dL to non-numeric ([facility] Serum or Plasma results) [facility] Medicine and Infectious Disease) Aspartate 20 U/L Normal (applies AST MERRY aminotransferase to non-numeric ([facility] [Enzymatic results) n [place] activity/volume] Medicine and in Serum or Plasma Infectious Disease) Albumin/Globulin 1.3 Normal (applies ALBUMIN/GLOBU GRE [place] [Mass Ratio] in (calc) to non-numeric KURTIS RATIO ([facility] Serum or Plasma results) [facility] Medicine and Infectious Disease) Carbon dioxide, 30 Normal (applies CARBON MERRY total mmol/L to non-numeric DIOXIDE ([facility] [Moles/volume] in results) [facility] Serum or Plasma Medicine and Infectious Disease) Calcium 10.0 Normal (applies CALCIUM MERRY [Mass/volume] in mg/dL to non-numeric ([facility] Serum or Plasma results) [facility] Medicine and Infectious Disease) Bilirubin.total 0.4 Normal (applies BILIRUBIN,TOT GREE NWAY [Mass/volume] in mg/dL to non-numeric AL ([facility] Serum or Plasma results) [facility] Medicine and Infectious Disease) Chloride 100 Normal (applies CHLORIDE MERRY [Moles/volume] in mmol/L to non-numeric ([facility] Serum or Plasma results) [facility] Medicine and Infectious Disease) Glomerular 33 Below low normal EGFR NON AFR MERRY filtration mL/min/ IRANIAN ([facility] rate/1.73 sq 1.73m2 n [place] M.predicted Medicine and [Volume Rate/Area] Infectious in Serum or Plasma Disease) by Creatinine-based formula (MDRD) Globulin 3.2 Normal (applies GLOBULIN MERRY [Mass/volume] in g/dL_(c to non-numeric ([facility] Serum by alc) results) n [place] calculation Medicine and Infectious Disease) Creatinine 1.87 Above high CREATININE MERRY [Mass/volume] in mg/dL normal ([facility] Serum or Plasma [facility] Medicine and Infectious Disease) Note: The upper reference limit for Creatinine is approximately 13% higher for people identified as - [place]. Sodium 139 mmol/L Normal (applies SODIUM MERRY [Moles/volume] in to non-numeric ([facility] results) Medicine and Infectious Disease) Protein 7.2 g/dL Normal (applies PROTEIN, TOTAL MERRY [Mass/volume] in to non-numeric ([facility] Serum or Plasma results) Medicine and Infectious Disease) Glomerular 38 Below low normal EGFR [place] filtration rate/1.73 mL/min/1.73m IRANIAN ([facility] [place] [place] sq M predicted among 2 Medicine and blacks [Volume Infectious Rate/Area] in Serum Disease) or Plasma by Creatinine-based formula (MDRD) Potassium 4.4 mmol/L Normal (applies POTASSIUM MERRY [Moles/volume] in to non-numeric ([facility] or Plasma results) Medicine and Infectious Disease) Urea 12 (calc) Normal (applies BUN/CREATININE MERRY nitrogen/Creatinine to non-numeric RATIO ([facility] [place] [Mass Ratio] in results) Medicine and Serum or Plasma Infectious Disease) Fasting glucose 205 mg/dL Above high normal GLUCOSE,FASTIN G REENWAY [Mass/volume] in G ([facility] Serum or Plasma Medicine and Infectious Disease) Note: For someone without know n diabetes, a glucose value >125 mg/dL indicates that they may have diabe odalis and this should be confirmed with a follow-up test. Urea nitrogen 23 mg/dL Normal (applies UREA NITROGEN GREENW AY [Mass/volume] in to non-numeric ([facility] [place] Serum or Plasma results) Medicine and Infectious Disease) Alkaline 63 U/L Normal (applies ALKALINE MERRY phosphatase to non-numeric PHOSPHATASE ([facility] [place] [Enzymatic results) Medicine and activity/volume] in Infectious Disease) Serum or Plasma ID Date Data Source [id number] 12/16/2019 09:00:00 AM EDT [facility] Name Value Range Interpretation Description Data Sup porting Code Source(s) Document(s ) SARS [facility] CORONAVIRUS 2 RNA This lab was ordered by [facility] and reported by [facility]. ID Date Data Source [id number] 12/13/2019 04:00:00 PM EDT [facility] Name Value Range Interpretation Description Data Sup porting Code Source(s) Document(s ) SARS [facility] CORONAVIRUS 2 RNA This lab was ordered by [facility] and reported by [facility]. ID Date Data Source [id number] 11/22/2019 04:07:00 PM EDT MERRY ([facility] Medicine and Infectious Disease) Name Value Range Interpretation Description Data Sup porting Code Source(s) Document(s ) HIV 1 RNA 38 Above high normal HIV 1 RNA, QN MERRY [#/volume] copies/m PCR ([facility] (viral load) in L n [place] Serum or Plasma Medicine and by Probe and Infectious target Disease) amplification method HIV 1 RNA [Log 1.58 Above high normal HIV 1 RNA, QN [facility] #/volume] (viral log_copi PCR ([facility] load) in Plasma es/mL n [place] by Probe and Medicine and target Infectious amplification Disease) method Note: The test was performed u sing Real Time Polymerase Chain Reaction. Reportable Range: 20 c opies/mL to 10,000,000 copies/mL (1.30-7.00 Log copies/mL). ID Date Data Source [id number] 11/22/2019 04:07:00 PM EDT MERRY ([facility] Medicine and Infectious Disease) Name Value Range Interpretation Description Data Sup porting Code Source(s) Document(s ) Hemoglobin 6.0 Above high normal HEMOGLOBIN A1C GREEN AY A1c/Hemoglobi %_of_tot ([facility] n.total in al_Hgb [place] Medicine Blood and Infectious Disease) Note: For [...] diabetes in children. ID Date Data Source [id number] 10/31/2019 12:00:00 AM EDT [facility] Name Value Range Interpretation Code Description Data Lo rce(s) Supporting Document(s ) 2019-nCoV [place] RNA XXX JACQUI+probe- Imp This lab was ordered by [facility] and reported by [employer] ID Date Data Source [id number] 09/27/2019 12:30:00 PM EDT [facility] Name Value Range Interpretation Code Description Data Lo rce(s) Supporting Document(s ) RESULT [facility] This lab was ordered by [facility] and reported by [facility]. ID Date Data Source [id number] 09/08/2019 08:42:00 AM EST MERRY ([facility] Medicine and Infectious Disease) Name Value Range Interpretation Description Data Sup porting Code Source(s) Document(s ) HIV 1 RNA 26 Above high normal HIV 1 RNA, QN MERRY [#/volume] copies/m PCR ([facility] (viral load) in L [facility] Serum or Plasma Medicine and by Probe and Infectious target Disease) amplification method HIV 1 RNA [Log 1.41 Above high normal HIV 1 RNA, QN GRE [place] #/volume] (viral log_copi PCR ([facility] load) in Plasma es/mL [facility] by Probe and Medicine and target Infectious amplification Disease) method Note: The test was performed u sing Real Time Polymerase Chain Reaction. Reportable Range: 20 c opies/mL to 10,000,000 copies/mL (1.30-7.00 Log copies/mL). ID Date Data Source [id number] 09/08/2019 08:42:00 AM EST MERRY ([facility] Medicine and Infectious Disease) Name Value Range Interpretation Description Data Sup porting Code Source(s) Document(s ) CD3+CD4+ (T4 15 Percent Below low normal % CD4 MERRY helper) ([facility] cells/100 [facility] cells in Blood Medicine and Infectious Disease) Lymphocytes 2626 Normal (applies ABSOLUTE MERRY [#/volume] in Cells/mcL to non-numeric LYMPHOCYTES ([facility] Blood by results) [facility] Automated Medicine and count Infectious Disease) CD3+CD4+ (T4 402 Below low normal ABSOLUTE CD4 GRE[place] Y helper) cells Cells/mcL CELLS ([facility] [#/volume] in [facility] Blood Medicine and Infectious Disease) CD3+CD8+ (T8 1582 Above high normal ABSOLUTE CD8 GREENW AY suppressor Cells/mcL CELLS ([facility] cells) cells n [place] [#/volume] in Medicine and Blood Infectious Disease) CD3+CD8+ (T8 60 Percent Above high normal % CD8 MERRY suppressor ([facility] cells) n [place] cells/100 Medicine and cells in Blood Infectious Disease) CD3+CD4+ (T4 0.25 Ratio Below low normal CD4/CD8 RATIO [address] helper) ([facility] cells/CD3+CD8+ n [place] (T8 suppressor Medicine and cells) cells Infectious [# Ratio] in Disease) Blood ID Date Data Source [id number] 09/08/2019 08:42:00 AM DorsaVI ([facility] Medicine and Infectious Disease) Name Value Range Interpretation Description Data Sup porting Code Source(s) Document(s ) Hemoglobin 6.1 Above high normal HEMOGLOBIN A1C GREENW AY A1c/Hemoglobi %_of_tot ([facility] n.total in al_[facility] Medicine Blood and Infectious Disease) Note: For [...] diabetes in children. ID Date Data Source [id number] 06/10/2019 08:44:00 AM DorsaVI ([facility] Medicine and Infectious Disease) Name Value Range Interpretation Description Data Sup porting Code Source(s) Document(s ) HIV 1 RNA 31 Above high normal HIV 1 RNA, QN MERRY [#/volume] copies/m PCR ([facility] (viral load) in [facility] Serum or Plasma Medicine and by Probe and Infectious target Disease) amplification method HIV 1 RNA [Log 1.49 Above high normal HIV 1 RNA, QN GRE [place] #/volume] (viral log_copi PCR ([facility] load) in Plasma es/mL [facility] by Probe and Medicine and target Infectious amplification Disease) method Note: The test was performed u sing Real Time Polymerase Chain Reaction. Reportable Range: 20 c opies/mL to 10,000,000 copies/mL (1.30-7.00 Log copies/mL). Duplicate report will be sent to: CHUCHO ZUNIGA N [address] [place] [id number] ID Date Data Source [id number] 06/10/2019 08:44:00 AM EST MERRY ([facility] Medicine and Infectious Disease) Name Value Range Interpretation Description Data Sup porting Code Source(s) Document(s ) CD3+CD4+ (T4 432 Below low normal ABSOLUTE CD4 GRE[place] Y helper) cells Cells/mcL CELLS ([facility] [#/volume] in [facility] Blood Medicine and Infectious Disease) CD3+CD4+ (T4 15 Percent Below low normal % CD4 MERRY helper) ([facility] cells/100 [facility] cells in Blood Medicine and Infectious Disease) CD3+CD8+ (T8 60 Percent Above high normal % CD8 MERRY suppressor ([facility] cells) [facility] cells/100 Medicine and cells in Blood Infectious Disease) CD3+CD4+ (T4 0.25 Ratio Below low normal CD4/CD8 RATIO [address] helper) ([facility] cells/CD3+CD8+ n [place] (T8 suppressor Medicine and cells) cells Infectious [# Ratio] in Disease) Blood Lymphocytes 2912 Normal (applies ABSOLUTE MERRY [#/volume] in Cells/mcL to non-numeric LYMPHOCYTES ([facility] Blood by results) [facility] Automated Medicine and count Infectious Disease) CD3+CD8+ (T8 1751 Above high normal ABSOLUTE CD8 GREENW AY suppressor Cells/mcL CELLS ([facility] cells) cells [facility] [#/volume] in Medicine and Blood Infectious Disease) ID Date Data Source [id number] 06/10/2019 08:44:00 AM EST MERRY ([facility] Medicine and Infectious Disease) Name Value Range Interpretation Description Data Sup porting Code Source(s) Document(s ) Hemoglobin 6.7 Above high normal HEMOGLOBIN A1C GREENW AY A1c/Hemoglobi %_of_tot ([facility] n.total in al_Hgb [place] Medicine Blood and Infectious Disease) Note: For [...] f or children. ID Date Data Source [id number] 06/10/2019 08:44:00 AM EST MERRY ([facility] Medicine and Infectious Disease) Name Value Range Interpretation Description Data Source(s ) Supporting Code Document(s ) Cell See Note Normal (applies to DIFFERENTIAL MERRY Fractions/ non-numeric ([facility]) [place] Medicine al and Infectious [Interpret Disease) ation] in Blood Note: An instrument differentia l was performed. Leukocytes 7.7 Thousand/uL Normal (applies WBC GREENWA Y [#/volume] in to non-numeric ([facility] Blood by Automated results) Medicine an d count Infectious Disease) Hematocrit [Volume 40.2 % Normal (applies HEMATOCRIT GREE NWAY Fraction] of Blood to non-numeric ([facility] by Automated count results) Medicine an d Infectious Disease) Monocytes/100 9.2 % Normal (applies MONOCYTES,% MERRY leukocytes in to non-numeric ([facility] Blood by Automated results) Medicine an d count Infectious Disease) Eosinophils 547 cells/uL Above high EOSINOPHILS,AB MERRY [#/volume] in normal SOLUTE ([facility] Blood by Automated Medicine an d count Infectious Disease) Basophils/100 0.5 % Normal (applies BASOPHILS,% MERRY leukocytes in to non-numeric ([facility] Blood by Automated results) Medicine an d count Infectious Disease) Basophils 39 cells/uL Normal (applies BASOPHILS,ABSO GREENWA Y [#/volume] in to non-numeric LUTE ([facility] Blood by Automated results) Medicine an d count Infectious Disease) Lymphocytes 3088 cells/uL Normal (applies LYMPHOCYTES,AB GRE EN[place]AY [#/volume] in to non-numeric SOLUTE ([facility] Blood by Automated results) Medicine an d count Infectious Disease) Eosinophils/100 7.1 % Normal (applies EOSINOPHILS,% GREE NWAY leukocytes in to non-numeric ([facility] Blood by Automated results) Medicine an d count Infectious Disease) Lymphocytes/100 40.1 % Normal (applies TOTAL MERRY leukocytes in to non-numeric LYMPHOCYTES,% ([facility] Blood by Automated results) Medicine an d count Infectious Disease) Hemoglobin 13.6 g/dL Normal (applies HEMOGLOBIN MERRY [Mass/volume] in to non-numeric ([facility] Blood results) Medicine and Infectious Disease) Neutrophils/100 43.1 % Normal (applies TOTAL MERRY leukocytes in to non-numeric NEUTROPHILS,% ([facility] Blood by Automated results) Medicine an d count Infectious Disease) Monocytes 708 cells/uL Normal (applies MONOCYTES,ABSO GREENW AY [#/volume] in to non-numeric LUTE ([facility] Blood by Automated results) Medicine an d count Infectious Disease) Neutrophils 3319 cells/uL Normal (applies NEUTROPHILS,AB GRE [place] [#/volume] in to non-numeric SOLUTE ([facility] Blood by Automated results) Medicine an d count Infectious Disease) Platelets 271 Thousand/uL Normal (applies PLATELET COUNT GRE EN[place]AY [#/volume] in to non-numeric ([facility] Blood by Automated results) Medicine an d count Infectious Disease) Platelet mean 10.0 fL Normal (applies MPV MERRY volume [Entitic to non-numeric ([facility] volume] in Blood results) Medicine and by Sadaf Infectious Disease) Erythrocyte mean 32.3 pg Normal (applies MCH GRE[place] Y corpuscular to non-numeric ([facility] hemoglobin results) Medicine and [Entitic mass] by Infectious Automated count Disease) Erythrocyte mean 33.8 g/dL Normal (applies MCHC [place] Y corpuscular to non-numeric ([facility] hemoglobin results) Medicine and concentration Infectious [Mass/volume] by Disease) Automated count Erythrocyte mean 95.5 fL Normal (applies MCV GRE[place] Y corpuscular volume to non-numeric ([facility] [place] [Entitic volume] results) Medicine and by Automated count Infectious Disease) Erythrocytes 4.21 Million/uL Normal (applies RBC [address] [#/volume] in to non-numeric ([facility] Blood by Automated results) Medicine an d count Infectious Disease) Erythrocyte 13.3 % Normal (applies RDW MERRY distribution width to non-numeric ([facility] [place] [Ratio] by results) Medicine and Automated count Infectious Disease) ID Date Data Source [id number] 06/10/2019 08:44:00 AM EST MERRY ([facility] [place] Medicine and Infectious Disease) Name Value Range Interpretation Description Data Sup porting Code Source(s) Document(s ) Cholesterol 186 Normal (applies CHOLESTEROL,TOT GREENW AY [Mass/volume] mg/dL to non-numeric AL ([facility] a in Serum or results) n [place] Plasma Medicine and Infectious Disease) Cholesterol in 37 mg/dL Below low normal HDL CHOLESTEROL GR EENWAY HDL ([facility] [Mass/volume] n [place] in Serum or Medicine and Plasma Infectious Disease) Triglyceride 226 Above high TRIGLYCERIDES MERRY [Mass/volume] mg/dL normal ([facility] in Serum or n [place] Plasma Medicine and Infectious Disease) Note: If a non-fasting specim en was collected, consider repeat triglyceride testing on a fasting specim en if clinically indicated. Sana et al. J of Clin. Lipidol. 2015 ;9:129-169. Cholesterol non HDL 149 mg/dL_(calc) Above high NON HDL GR EENWAY [Mass/volume] in normal CHOLESTEROL ([facility] an [place] Serum or Plasma Medicine and Infectious Disease) Note: For patients with diabe odalis plus 1 major ASCVD risk factor, treating to a non-HDL-C goal of <100 mg/ dL (LDL-C of <70 mg/dL) is considered a therapeutic option. Cholesterol.total/Cholesterol in 5.0 Above CHOLEST KYRIE/HDL MERRY HDL [Mass Ratio] in Serum or calc high RATIO ( [facility] Plasma normal [place] Medicine and Infectious Disease) Cholesterol in LDL [Mass/volume] 115 Above LDL-CHO LESTEROL MERRY in Serum or Plasma by mg/dL_( high ([facility] calculation calc) normal [place] Medicine and Infectious Disease) Note: LDL-C is now calculated using the Violeta calculation, which is a validated novel method provi ding better accuracy than the Friedewald equation in the estimation of LDL-C. Werner SS et al. SYLVIA. 2013; 310(19): 9542-7601 For additio nal information, please refer to http://education.arGEN-X/fa q/FWB311 (This link is being provided for informational/educational pu rposes only.) Desirable range < 100 mg/dL for primary prevention; <70 mg/dL for patients with CHD or diabetic patients with > or = 2 CHD risk factors. ID Date Data Source [id number] 06/10/2019 08:44:00 AM EST MERRY ([facility] Medicine and Infectious Disease) Name Value Range Interpretation Description Data Sup porting Code Source(s) Document(s ) Alanine 17 U/L Normal (applies ALT MERRY aminotransferase to non-numeric ([facility] [Enzymatic results) n [place] activity/volume] Medicine and in Serum or Plasma Infectious Disease) Albumin 4.0 Normal (applies ALBUMIN MERRY [Mass/volume] in g/dL to non-numeric ([facility] Serum or Plasma results) n [place] Medicine and Infectious Disease) Aspartate 21 U/L Normal (applies AST MERRY aminotransferase to non-numeric ([facility] [Enzymatic results) n [place] activity/volume] Medicine and in Serum or Plasma Infectious Disease) Albumin/Globulin 1.2 Normal (applies ALBUMIN/GLOBU GRE EN[place]AY [Mass Ratio] in (calc) to non-numeric KURTIS RATIO ([facility] Serum or Plasma results) n [place] Medicine and Infectious Disease) Calcium 9.8 Normal (applies CALCIUM MERRY [Mass/volume] in mg/dL to non-numeric ([facility] Serum or Plasma results) [facility] Medicine and Infectious Disease) Bilirubin.total 0.5 Normal (applies BILIRUBIN,TOT GREE NWAY [Mass/volume] in mg/dL to non-numeric AL ([facility] Serum or Plasma results) n [place] Medicine and Infectious Disease) Carbon dioxide, 30 Normal (applies CARBON MERRY total mmol/L to non-numeric DIOXIDE ([facility] [Moles/volume] in results) [facility] Serum or Plasma Medicine and Infectious Disease) Chloride 103 Normal (applies CHLORIDE MERRY [Moles/volume] in mmol/L to non-numeric ([facility] Serum or Plasma results) [facility] Medicine and Infectious Disease) Creatinine 1.72 Above high CREATININE MERRY [Mass/volume] in mg/dL normal ([facility] Serum or Plasma n [place] Medicine and Infectious Disease) Note: The upper reference limit for Creatinine is approximately 13% higher for people identified as - [place]. Globulin 3.4 g/dL_(calc) Normal (applies GLOBULIN MERRY [Mass/volume] in to non-numeric ([facility] [place] Serum by results) Medicine and calculation Infectious Disease) Potassium 4.4 mmol/L Normal (applies POTASSIUM MERRY [Moles/volume] in to non-numeric ([facility] [place] Serum or Plasma results) Medicine and Infectious Disease) Glomerular 36 mL/min/1.73m2 Below low EGFR NON AFR MERRY filtration normal IRANIAN ([facility] rate/1.73 sq Medicine and M.predicted Infectious [Volume Rate/Area] Disease) in Serum or Plasma by Creatinine-based formula (MDRD) Protein 7.4 g/dL Normal (applies PROTEIN, TOTAL MERRY [Mass/volume] in to non-numeric ([facility] [place] Serum or Plasma results) Medicine and Infectious Disease) Glomerular 42 mL/min/1.73m2 Below low EGFR MERRY filtration normal IRANIAN ([facility] rate/1.73 sq M Medicine and predicted among Infectious blacks [Volume Disease) Rate/Area] in Serum or Plasma by Creatinine-based formula (MDRD) Sodium 141 mmol/L Normal (applies SODIUM MERRY [Moles/volume] in to non-numeric ([facility]) Medicine and Infectious Disease) Urea 12 (calc) Normal (applies BUN/CREATININE MERRY nitrogen/Creatinin to non-numeric RATIO ([facility] [place] e [Mass Ratio] in results) Medicine and Serum or Plasma Infectious Disease) Alkaline 33 U/L Below low ALKALINE MERRY phosphatase normal PHOSPHATASE ([facility] [place] [Enzymatic Medicine and activity/volume] Infectious in Serum or Plasma Disease) Urea nitrogen 21 mg/dL Normal (applies UREA NITROGEN GREENW AY [Mass/volume] in to non-numeric ([facility] [place] Serum or Plasma results) Medicine and Infectious Disease) Fasting glucose 69 mg/dL Normal (applies GLUCOSE,FASTING GR EENWAY [Mass/volume] in to non-numeric ([facility] Serum or Plasma results) Medicine and Infectious Disease) Procedure Social History Code Duration Value Status Description Data Source(s ) Smoking 03/28/2020 denies EtOH, completed denies EtOH, MEDGEN ([facility] 12:00:00 AM EDT tobacco or tobacco or illicit NIKKI Razo) illicit drug 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 Smoking 03/28/2020 Unknown if ever completed Unknown if ever MEDG EN ([facility] [employer] 12:00:00 AM EDT smoked smoked Medical, PC) Smoking 03/24/2020 denies EtOH, completed denies EtOH, MEDGEN ([facility] [employer] 12:00:00 AM EDT tobacco or tobacco or illicit M edical, PC) 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 Smoking 03/24/2020 Unknown if ever completed Unknown if ever MEDG EN ([facility] 12:00:00 AM EDT smoked smoked Medical, PC) Smoking 03/14/2020 denies EtOH, completed denies EtOH, MEDGEN ([facility] 12:00:00 AM EDT tobacco or tobacco or illicit M edical, PC) 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 Smoking 03/14/2020 Unknown if ever completed Unknown if ever MEDG EN ([facility] 12:00:00 AM EDT smoked smoked Medical, PC) Smoking 01/28/2020 Ex-smoker completed Ex-smoker MERRY 12:15:00 PM EDT (finding) (finding) ([facility] Medicine and Infectious Disease) Smoking 12/27/2019 Ex-smoker completed Ex-smoker MERRY 12:00:00 PM EDT (finding) (finding) ([facility] Medicine and Infectious Disease) Smoking 11/22/2019 Ex-smoker completed Ex-smoker MERRY 02:30:00 PM EDT (finding) (finding) ([facility] Medicine and Infectious Disease) Smoking 09/27/2019 Denies Ever completed Denies Ever Smoked [facility] 06:23:00 PM EDT Smoked Medical C enter Smoking 09/27/2019 Denies Ever completed Denies Ever Smoked [facility] 11:48:00 AM EDT Smoked Medical C enter Smoking 09/14/2019 Ex-smoker completed Ex-smoker MERRY 04:00:00 PM EDT (finding) (finding) ([facility] Medicine and Infectious Disease) Smoking 02/22/2019 Ex-smoker completed Ex-smoker MERRY 12:15:00 PM EDT (finding) (finding) ([facility] Medicine and Infectious Disease) Smoking 12/14/2018 Ex-smoker completed Ex-smoker MERRY 11:00:00 AM EDT (finding) (finding) ([facility] Medicine and Infectious Disease) Smoking Unknown if ever completed Unknown if ever AMISH LIMON smoked smoked ([facility] Medicine and Infectious Disease) Vital Signs ID Date Data Source UNK Name Value Range Interpretation Code Description Data Source(s) Heart rate 78 /min 78 /min MEDGEN ([facility]) Respiratory rate 14 /min 14 /min MEDGEN ( [facility]) Body mass index 21 kg/m2 21 kg/m2 MEDGEN (S t (BMI) [Ratio] [facility]) Diastolic blood 60 mm[Hg] 60 mm[Hg] MEDGEN (S t pressure [facility]) Systolic blood 100 mm[Hg] 100 mm[Hg] MEDGEN ([facility]) Body weight 138 lb 138 lb MEDGEN ([facility]) Body height 68 in 68 in MEDGEN ([facility]) Heart rate 78 /min 78 /min MEDGEN ([facility]) Respiratory rate 14 /min 14 /min MEDGEN ( [facility]) Body mass index 21 kg/m2 21 kg/m2 MEDGEN (S t (BMI) [Ratio] [facility], ) Diastolic blood 60 mm[Hg] 60 mm[Hg] MEDGEN (S t pressure [facility]) Systolic blood 100 mm[Hg] 100 mm[Hg] MEDGEN ([facility]) Body weight 138 lb 138 lb MEDGEN ([facility]) Body height 68 in 68 in MEDGEN ([facility]) Heart rate 78 /min 78 /min MEDGEN ([facility]) Respiratory rate 14 /min 14 /min MEDGEN ( [facility]) Body mass index 21 kg/m2 21 kg/m2 MEDGEN (S t (BMI) [Ratio] [facility]) Diastolic blood 60 mm[Hg] 60 mm[Hg] MEDGEN (S t pressure [facility]) Systolic blood 100 mm[Hg] 100 mm[Hg] MEDGEN ([facility]) Body weight 138 lb 138 lb MEDGEN ([facility]) Body height 68 in [facility] Body surface area 1.77 m2 1.77 m2 GREENWA Y Derived from ([facility] Medicine an d Infectious Disease) Body mass index 23.0 kg/m2 23.0 kg/m2 MERRY (BMI) [Ratio] ([facility] [place] Medicine an d Infectious Disease) Body weight 147 [lb_av] 147 [lb_av] MERRY ([facility] Medicine an d Infectious Disease) Body height 67 [in_i] 67 [in_i] MERRY ([facility] an d Infectious Disease) Respiratory rate 18 /min 18 /min MERRY ([facility] an d Infectious Disease) Heart rate 68 /min 68 /min MERRY ([facility] an d Infectious Disease) Diastolic blood 80 mm[Hg] 80 mm[Hg] MERRY pressure ([facility] an d Infectious Disease) Systolic blood 122 mm[Hg] 122 mm[Hg] [place] pressure ([facility] an d Infectious Disease) Body weight 68.874774 68.147068 kg [facility] Measured kg Medical Center Body temperature 36.091010 36.295276 [facility] Respiratory rate 18 /min 18 /min [facility] Oxygen saturation 98 % 98 % [facility] osephs in Arterial blood [facility] by Pulse oximetry Heart rate 73 /min 73 /min [facility] Body height 175.670168 175.081193 cm [facility] Diastolic blood 72 mm[Hg] 72 mm[Hg] [facility] pressure [facility] Systolic blood 143 mm[Hg] 143 mm[Hg] [facility] pressure [facility] Body mass index 22.1 kg/m2 22.1 kg/m2 [facility] (BMI) [Ratio] Medical [facility] Heart rate 73 /min 73 /min MEDGEN ([facility] , ) Inhaled oxygen 95 % 95 % MEDGEN ([facility], ) Body weight 150 lb 150 lb MEDGEN ([facility] , ) Heart rate 73 /min 73 /min MEDGEN ([facility]) Inhaled oxygen 95 % 95 % MEDGEN ([facility]) Body weight 150 lb 150 lb MEDGEN ([facility]) Heart rate 73 /min 73 /min MEDGEN ([facility]) Inhaled oxygen 95 % 95 % MEDGEN ([facility], ) Body weight 150 lb 150 lb MEDGEN ([facility] , ) Body height 67 [in_us] 67 [in_us] MERRY ([facility] an d Infectious Disease) Respiratory rate 18 /min 18 /min MERRY ([facility] [place] [facility] an d Infectious Disease) Heart rate 68 /min 68 /min MERRY ([facility] an d Infectious Disease) Diastolic blood 60 mm[Hg] 60 mm[Hg] MERRY pressure ([facility] an d Infectious Disease) Systolic blood 120 mm[Hg] 120 mm[Hg] [place] pressure ([facility] an d Infectious Disease) Heart rate 80 /min 80 /min MEDGEN ([facility] , ) Inhaled oxygen 93 % 93 % MEDGEN ([facility], ) Body mass index 24.2 kg/m2 24.2 kg/m2 MEDGEN (S t (BMI) [Ratio] [facility], ) Diastolic blood 60 mm[Hg] 60 mm[Hg] MEDGEN (S t pressure [facility]) Systolic blood 120 mm[Hg] 120 mm[Hg] MEDGEN ([facility] , ) Body weight 159 lb 159 lb MEDGEN ([facility]) Body height 68 in 68 in MEDGEN ([facility]) Heart rate 80 /min 80 /min MEDGEN ([facility] , ) Inhaled oxygen 93 % 93 % MEDGEN ([facility], ) Body mass index 24.2 kg/m2 24.2 kg/m2 MEDGEN (S t (BMI) [Ratio] [facility], ) Diastolic blood 60 mm[Hg] 60 mm[Hg] MEDGEN (S [facility] pressure [facility] , ) Systolic blood 120 mm[Hg] 120 mm[Hg] MEDGEN ([facility] , ) Body weight 159 lb 159 lb MEDGEN ([facility]) Body height 68 in 68 in MEDGEN ([facility]) Heart rate 80 /min 80 /min MEDGEN ([facility]) Inhaled oxygen 93 % 93 % MEDGEN ([facility], ) Body mass index 24.2 kg/m2 24.2 kg/m2 MEDGEN (S t (BMI) [Ratio] [facility], ) Diastolic blood 60 mm[Hg] 60 mm[Hg] MEDGEN (S t pressure [facility]) Systolic blood 120 mm[Hg] 120 mm[Hg] MEDGEN ([facility] , ) Body weight 159 lb 159 lb MEDGEN ([facility]) Body height 68 in 68 in MEDGEN ([facility]) Heart rate 57 /min 57 /min MEDGEN ([facility]) Respiratory rate 14 /min 14 /min MEDGEN ( [facility]) Inhaled oxygen 94 % 94 % MEDGEN ([facility], ) Body mass index 23.4 kg/m2 23.4 kg/m2 MEDGEN (S t (BMI) [Ratio] [facility], ) Diastolic blood 60 mm[Hg] 60 mm[Hg] MEDGEN (S t pressure [facility]) Systolic blood 130 mm[Hg] 130 mm[Hg] MEDGEN ([facility]) Body weight 154 lb 154 lb MEDGEN ([facility]) Body height 68 in 68 in MEDGEN ([facility]) Heart rate 57 /min 57 /min MEDGEN ([facility]) Respiratory rate 14 /min 14 /min MEDGEN ( [facility]) Inhaled oxygen 94 % 94 % MEDGEN ([facility], ) Body mass index 23.4 kg/m2 23.4 kg/m2 MEDGEN (S t (BMI) [Ratio] [facility], ) Diastolic blood 60 mm[Hg] 60 mm[Hg] MEDGEN (S [facility] pressure [facility] ) Systolic blood 130 mm[Hg] 130 mm[Hg] MEDGEN ([facility]) Body weight 154 lb 154 lb MEDGEN ([facility]) Body height 68 in 68 in MEDGEN ([facility]) Heart rate 57 /min 57 /min MEDGEN ([facility]) Respiratory rate 14 /min 14 /min MEDGEN ( [facility]) Inhaled oxygen 94 % 94 % MEDGEN ([facility], ) Body mass index 23.4 kg/m2 23.4 kg/m2 MEDGEN (S t (BMI) [Ratio] [facility], ) Diastolic blood 60 mm[Hg] 60 mm[Hg] MEDGEN (S t pressure [facility]) Systolic blood 130 mm[Hg] 130 mm[Hg] [facility] ([facility]) Body weight 154 lb 154 lb [facility] ([facility]) Body height 68 in 68 in [facility] ([facility]) Patient Treatment Plan of Care Planned Activity Planned Date Details Description Data Source (s) Tamsulosin hydrochloride 02/07/2020 [facility] 0.4 MG Oral Capsule 12:00:00 AM EDT ([facility] Medicine and Infectious Dise ase) dolutegravir 50 MG Oral 11/22/2019 GREE NWAY Tablet [Tivicay] 12:00:00 AM EDT ([facility] Medicine and Infectious Dise ase) Metoprolol Tartrate 25 MG 11/22/2019 GR [facility]AY Oral Tablet 12:00:00 AM EDT ([facility] Medicine and Infectious Dise ase) Fenofibrate 160 MG Oral 11/16/2019 GREE NW[place] Tablet 12:00:00 AM EDT ([facility] Medicine and Infectious Dise ase) abacavir 300 MG Oral Tablet 10/01/2019 MERRY 12:00:00 AM EDT ([facility] Medicine and Infectious Dise ase) icosapent ethyl 1000 MG 09/27/2019 GREE NWAY Oral Capsule [Vascepa] 12:00:00 AM EDT ([facility] [place] Medicine and Infectious Dise ase) pioglitazone 30 MG Oral 09/27/2019 GREE NW[place] Tablet 12:00:00 AM EDT ([facility] Medicine and Infectious Dise ase) sitagliptin 25 MG Oral 09/26/[address] Tablet [Januvia] 12:00:00 AM EDT ([facility] Medicine and Infectious Dise ase) Glipizide 10 MG Oral Tablet 09/26/2019 MERRY 12:00:00 AM EDT ([facility] Medicine and Infectious Dise ase) Fluticasone Propionate 50 08/03/2019 [facility] MCG/ACT Nasal Suspension 12:00:00 AM EST ([facility] Medicine and Infectious Dise ase) abacavir 300 MG Oral Tablet 08/02/2019 MERRY 12:00:00 AM EST ([facility] Medicine and Infectious Dise ase) QC Fluticasone Propionate 07/16/2019 GR EEN[facility]AY 50 MCG/ACT Nasal Suspension 12:00:00 AM EST ([facility] Medicine and Infectious Dise ase) cobicistat 150 MG / 06/18/2019 MERRY darunavir 800 MG Oral 12:00:00 AM EST ([facility] [place] Tablet [Prezcobix] Medicine and Infectious Dise ase) Dextromethorphan 3 MG/ML / 05/24/2019 G REENWAY Promethazine Hydrochloride 12:00:00 AM EST ([facility] 1.25 MG/ML Oral Solution Med icine and Infectious Dise ase) Zithromax Z-Pk 250 MG Oral 05/24/2019 MERRY Tablet 12:00:00 AM EST ([facility] Medicine and Infectious Dise ase) Lamivudine 100 MG Oral 04/19/[address] Tablet 12:00:00 AM EDT ([facility] Medicine and Infectious Dise ase) abacavir 300 MG Oral Tablet 02/26/2019 MERRY 12:00:00 AM EDT ([facility] Medicine and Infectious Dise ase) Rosuvastatin calcium 10 MG 02/18/2019 G REENWAY Oral Tablet 12:00:00 AM EDT ([facility] Medicine and Infectious Dise ase) Tamsulosin hydrochloride 12/31/2018 [place] 0.4 MG Oral Capsule 12:00:00 AM EDT [facility] Fenofibrate 160 MG Oral 11/02/2018 [place] [place] Tablet 12:00:00 AM EDT ([facility] Medicine and Infectious Dise ase) Glipizide 10 MG Oral Tablet 10/28/2018 MERRY 12:00:00 AM EDT ([facility] Medicine and Infectious Dise ase) sitagliptin 25 MG Oral 10/05/[address] Tablet [Januvia] 12:00:00 AM EDT ([facility] [place] Medicine and Infectious Dise ase) icosapent ethyl 1000 MG 09/28/2018 GREE NWAY Oral Capsule [Vascepa] 12:00:00 AM [facility] Albuterol 0.83 MG/ML 09/17/2018 [place] Y Inhalant Solution 12:00:00 AM EDT [facility] pioglitazone 30 MG Oral 09/15/2018 [place] Tablet 12:00:00 AM EDT ([facility] Medicine and Infectious Dise ase) abacavir 300 MG Oral Tablet 08/04/2018 MERRY 12:00:00 AM EST ([facility] Medicine and Infectious Dise ase) Metoprolol Tartrate 25 MG 07/23/2018 GR [facility] Oral Tablet 12:00:00 AM EST ([facility] Medicine and Infectious Dise ase) cobicistat 150 MG / 06/01/2018 MERRY darunavir 800 MG Oral 12:00:00 AM EST ([facility] Tablet [Prezcobix] Medicine and Infectious Dise ase) Lamivudine 100 MG Oral 05/25/[address] Tablet 12:00:00 AM EST ([facility] Medicine and Infectious Dise ase) Ofloxacin 3 MG/ML 03/23/2018 MERRY Ophthalmic Solution 12:00:00 AM EDT ([facility] Medicine and Infectious Dise ase) Rosuvastatin calcium 10 MG 02/11/2018 G REENWAY Oral Tablet [Crestor] 12:00:00 AM EDT ([facility] Medicine and Infectious Dise ase) prasugrel 5 MG Oral Tablet 2017 G REENWAY [Effient] 12:00:00 AM EDT ([facility] Medicine and Infectious Dise ase) Fenofibrate 145 MG Oral 08/27/2017 [place] Tablet [Tricor] 12:00:00 AM EST ([facility] Medicine and Infectious Dise ase) Metoprolol Tartrate 25 MG 07/16/2017 GR [facility] Oral Tablet 12:00:00 AM EST ([facility] Medicine and Infectious Dise ase) Glipizide 10 MG Oral Tablet 12/12/2016 MERRY 12:00:00 AM EDT ([facility] Medicine and Infectious Dise ase) [place]-3 Acid Ethyl Esters 12/12/2015 [facility] ([facility]) 1000 MG Oral Capsule 12:00:00 AM EDT ([facility] Medicine and Infectious Dise ase) sildenafil 100 MG Oral 08/25/[address] Tablet [Viagra] 12:00:00 AM EST ([facility] Medicine and Infectious Dise ase) levocetirizine 07/25/2014 MERRY dihydrochloride 5 MG Oral 12:00:00 AM EST ([facility] Medicine and Infectious Dise ase) [place]-3 Acid Ethyl Esters 02/18/2014 [facility] ([facility]) 1000 MG Oral Capsule 12:00:00 AM EDT ([facility] [Lovaza] Medicine and Infectious Dise ase) Metoprolol Tartrate 25 MG 12/06/2013 GR [facility] Oral Tablet 12:00:00 AM EDT ([facility] Medicine and Infectious Dise ase) Lamivudine 100 MG Oral 08/02/[address] Tablet [Epivir HBV] 12:00:00 AM EST ([facility] Medicine and Infectious Dise ase) Dextromethorphan 3 MG/ML / 03/30/2013 G RE[facility] Promethazine Hydrochloride 12:00:00 AM EDT ([facility] 1.25 MG/ML Oral Solution Med icine and Infectious Dise ase) Zithromax Z-Pk 250 MG OR 03/30/2013 [facility] TABS 12:00:00 AM EDT ([facility] Medicine and Infectious Dise ase) Fenofibrate 160 MG Oral 01/25/2013 [place] Tablet 12:00:00 AM EDT ([facility] Medicine and Infectious Dise ase) Lamivudine 100 MG Oral 01/04/[address] Tablet [Epivir HBV] 12:00:00 AM EDT ([facility] Medicine and Infectious Dise ase) Lisinopril 2.5 MG Oral 09/25/[address] Tablet 12:00:00 AM EDT ([facility] Medicine and Infectious Dise ase) Glyburide 2.5 MG Oral 09/25/2012 [place] Tablet 12:00:00 AM EDT ([facility] Medicine and Infectious Dise ase) EC-81 Aspirin 81 MG OR TBEC 09/25/2012 MERRY 12:00:00 AM EDT ([facility] Medicine and Infectious Dise ase) darunavir 600 MG Oral 09/07/2012 [place] Tablet [Prezista] 12:00:00 AM EST ([facility] Medicine and Infectious Dise ase) Promethazine Hydrochloride 07/22/2012 G REENWAY 50 MG/ML Injectable 12:00:00 AM EST ([facility] Solution [Phenergan] Medicin e and Infectious Dise ase) Zithromax Z-Pk 250 MG OR 07/14/2012 [facility] TABS 12:00:00 AM EST ([facility] Medicine and Infectious Dise ase) [place]-3 Acid Ethyl Esters 06/22/2012 [facility] ([facility]) 1000 MG Oral Capsule 12:00:00 AM EST ([facility] [Lovaza] Medicine and Infectious Dise ase) Lamivudine 100 MG Oral 05/04/[address] Tablet [Epivir HBV] 12:00:00 AM EDT ([facility] Medicine and Infectious Dise ase) Rosuvastatin calcium 20 MG 11/18/2011 G RE[facility]AY Oral Tablet [Crestor] 12:00:00 AM EDT ([facility] Medicine and Infectious Dise ase) Glyburide 5 MG Oral Tablet 10/07/2011 G RE[facility]WAY 12:00:00 AM EDT ([facility] Medicine and Infectious Dise ase) Nystatin 182972 UNT/ML / 10/07/2011 [facility] Triamcinolone Acetonide 1 12:00:00 AM EDT ([facility] MG/ML Topical Cream Medicine and Infectious Dise ase) Levofloxacin 500 MG Oral 09/27/2011 [facility] [place] Tablet [Levaquin] 12:00:00 AM EDT ([facility] Medicine and Infectious Dise ase) Nasonex 50 MCG/ACT NA SUSP 09/20/2011 G REENWAY 12:00:00 AM EDT ([facility] Medicine and Infectious Dise ase) Didanosine 125 MG Delayed 09/04/2011 [facility] Release Oral Capsule 12:00:00 AM EST ([facility] Medicine and Infectious Dise ase) Ritonavir 100 MG Oral 09/04/2011 GREEN[place] AY Capsule [Norvir] 12:00:00 AM EST ([facility] Medicine and Infectious Dise ase) darunavir 600 MG Oral 09/04/2011 [place] AY Tablet [Prezista] 12:00:00 AM EST ([facility] Medicine and Infectious Dise ase) [place]-3 Acid Ethyl Esters 08/16/2011 [facility] ([facility]) 1000 MG Oral Capsule 12:00:00 AM EST ([facility] [Lovaza] Medicine and Infectious Dise ase) Tamsulosin hydrochloride 07/19/2011 [place] 0.4 MG Oral Capsule 12:00:00 AM EST ([facility] [Flomax] Medicine and Infectious Dise ase) Glyburide 2.5 MG Oral 03/05/2011 GRE[place] AY Tablet 12:00:00 AM EDT ([facility] Medicine and Infectious Dise ase) Ritonavir 100 MG Oral 03/05/2011 [place] AY Tablet [Norvir] 12:00:00 AM EDT ([facility] Medicine and Infectious Dise ase) darunavir 600 MG Oral 03/05/2011 GREEN[place] AY Tablet [Prezista] 12:00:00 AM EDT ([facility] Medicine and Infectious Dise ase)
[2020-04-10] MEDS ORDERED: ACETAMINOPHEN 325 MG TABLET (FP) PO PRN (21:04)
[2020-04-10] MEDS ORDERED: MELATONIN 5 MG TABLETS PO PRN (21:04)
[2020-04-10 21:21] LABS: PH,URINE 6.5 (5.0-8.0); URINE APPEARANCE CLEAR; URINE BILIRUBIN NEGATIVE (NEGATIVE); URINE COLOR YELLOW; URINE GLUCOSE (UA) 2+ (NEGATIVE); URINE KETONE NEGATIVE (NEGATIVE); URINE LEUK ESTERASE NEGATIVE (NEGATIVE); URINE NITRITE NEGATIVE (NEGATIVE); URINE PROTEIN TRACE (NEGATIVE); URINE UROBILINOGEN 0.2 mg/dL (0.2-1.0)
[2020-04-10] MEDS ORDERED: DEXTROSE 5%-0.45% SALINE 1,000 ML IV SCH (21:45)
[2020-04-10] MEDS ORDERED: METOPROLOL TARTRATE 25 MG TABLET (FP) ONE (22:08)
[2020-04-10] MEDS ORDERED: DOCUSATE SODIUM 100 MG CAPSULE (FP) PO ONE (22:08)
[2020-04-10] MEDS: DOCUSATE SODIUM 100 MG CAPSULE (FP) PO SCH (22:11)
[2020-04-10] MEDS: METOPROLOL TARTRATE 25 MG TABLET (FP) PO SCH (22:11)
[2020-04-10] MEDS: ASCORBIC ACID 500 MG TABLET (FP) PO SCH (23:19)
[2020-04-10] MEDS: ROSUVASTATIN CA 10 MG TABLET (FP) PO SCH (23:19)
[2020-04-10] MEDS: CHOLECALCIFEROL (VIT D3) 1,000 UNIT (25 MCG) TABLET PO SCH (23:19)
[2020-04-10] MEDS: INSULIN SLIDING SCALE (NOVOLOG) 1 VIAL SQ SCH (23:19)
[2020-04-11] MEDS: INSULIN SLIDING SCALE (NOVOLOG) 1 VIAL SQ SCH ×4 (06:48→22:23)
[2020-04-11 07:04] LABS: BASO % 0.6 % (0-2.0); HEMATOCRIT 33.6 % (35.4-49); HEMOGLOBIN 11.3 GM/dL (11.7-16.9); LYMPH % 36.3 % (8-40); MCH 32.2 pg (25.7-33.7); MCHC 33.7 g/dl (32.0-35.9); MEAN CELL VOLUME 95.5 fl (80-96); MEAN PLT VOLUME 7.8 fl (7.5-11.1); MONO % 10.6 % (3.8-10.2); NEUT % 45.5 % (42.8-82.8); PLATELET COUNT 213 K/MM3 (134-434); RBC 3.52 M/mm3 (4.00-5.60); RDW 13.2 % (11.9-15.9); WHITE BLOOD COUNT 8.3 K/mm3 (4.0-10.0)
[2020-04-11 07:18] LABS: ALBUMIN 3.2 g/dl (3.4-5.0); ALK PHOS 42 U/L (45-117); ANION GAP 7 MMOL/L (8-16); BILIRUBIN,TOTAL 0.5 mg/dL (0.2-1); BLOOD UREA NITROGEN 22.3 mg/dL (7-18); CALCIUM 8.7 mg/dL (8.5-10.1); CHLORIDE 107 mmol/L (98-107); CO2 28 mmol/L (21-32); CREATININE 1.9 mg/dL (0.55-1.3); GLUCOSE,RANDOM 113 mg/dL (74-106); POTASSIUM 3.6 mmol/L (3.5-5.1); SGOT/AST 20 U/L (15-37); SGPT/ALT 22 U/L (13-61); SODIUM 141 mmol/L (136-145); TOT PROT 6.3 g/dl (6.4-8.2)
--- NOTE | 2020-04-11 07:46 | CON.CARD ---
Consult Consult Specialty:: Cardiology Reason for Consultation:: syncope - History of Present Illness History of Present Illness: 84M with PMH of CAD x4 stents, CKD, HIV (on HAART therapy), DM, on daily ASA present to ED via EMS after a fall today. He reports being at his sink, feeling dizziness (described as room spinning) and fell, and hit his head. Denied LOC. No TAEMZ, vision changes, cp, sob, or palpitations prior to the fall. He's had a few of these episodes before, but unsure of the cause. Currently reports head and neck pain, but denies vision changes, dizziness, numbness, tingling, or weakness. - Past Medical History [employer]: Yes: Peripheral Neuropathy Cardio/Vascular: Yes: CAD, Hyperlipdemia Pulmonary: No: Asthma, Bronchitis, Cancer, COPD, O2 Dependent, Pneumonia, Previously Intubated, Pulmonary Embolus, Pulmonary Fibrosis, Sleep Apnea, Other Gastrointestinal: No: Ascites, Cancer, Constipation, Crohn's Disease, Diverticulitis, Diverticulosis, Esophageal Varices, Gastritis, GERD, GI Bleed, Hemorrhoids, Hiatal Hernia, Inflamatory Bowel Disease, Irritable Bowel Disease, Pancreatitis, Peptic Ulcer Disease, Ulcerative Colitis, Other Hepatobiliary: No: Cirrhosis, Cholelithiasis, Cholecystitis, Choledocholithiasis, Hepatitis A, Hepatitis B, Hepatitis C, Other Renal/: Yes: Renal Inusuff Infectious Disease: Yes: HIV Psych: No: Addictions, Anxiety, Bipolar, Depression, Panic, Psychosis, Schizophrenia, Other Musculoskeletal: Yes: Chronic low back pain, Osteoarthritis Rheumatology: No: Fibromyalgia, Gout, Lupus, Rheumatoid Arthritis, Sarcoidosis, Vasculitis, Other ENT: No: Allergic Rhinitis, Sinusitis, Other Endocrine: Yes: Diabetes Mellitus Dermatology: No: Basal Cell, Cellulitis, Eczema, Melanoma, Psoriasis, Squamous Cell, Other - Past Surgical History Past Surgical History: Yes: Carotid Endarterectomy (right) - Alcohol/Substance Use Hx Alcohol Use: No - Smoking History Smoking history: Never smoked Have you smoked in the past 12 months: No Aproximately how many cigarettes per day: 0 - Social History ADL: Independent History of Recent Travel: No Home Medications - Allergies Allergies/Adverse Reactions: Allergies Allergy/AdvReac Type Severity Reaction Status Date / Time No Known Allergies Allergy Verified 04/07/20 13:43 - Home Medications Home Medications: Ambulatory Orders Alpha Lipoic Acid 200 mg PO TID 12/17/12 Ascorbate Calcium/Bioflav [Cande-C 500 mg Tablet] 1 each PO TID 12/17/12 Fenofibrate [Lipofen] 160 mg PO DAILY 12/17/12 Ferrous Fumarate 65 mg PO DAILY 12/17/12 Sitagliptin Phosphate [Januvia] 25 mg PO DAILY 08/25/16 Cholecalciferol (Vitamin D3) [Vitamin D3] 2,000 unit PO BID 11/27/16 Multivitamin with Minerals [Icaps Plus] 1 each PO DAILY 11/27/16 Vitamin B Complex 1 tab PO DAILY 11/27/16 Vitamin E 400 unit PO DAILY 11/27/16 Carboxymethylcellulos/Glycerin [Lubricant 0.5-0.9% Eye Drops] 15 ml OP PRN 7 Days #1 drops 03/22/18 Tamsulosin HCl [Flomax] 0.4 mg PO DAILY 10/01/18 Fluticasone Prop 0.05% Nasal [Flonase -] 1 spray NS BID 12/13/19 Icosapent Ethyl [Vascepa] 2 cap PO BID 12/13/19 Lamivudine 50 mg PO DAILY 12/14/19 Melatonin 5 mg PO HS PRN tab 12/17/19 Acetaminophen [Tylenol .Regular Strength -] 650 mg PO Q6H PRN tablet 02/03/20 Aspirin Coated [Ecotrin -] 81 mg PO DAILY tablet.ec 02/03/20 Clopidogrel Bisulfate [Plavix -] 75 mg PO DAILY tablet 02/03/20 Darunavir/Cobicistat [Prezcobix 800 mg-150 mg Tablet] 1 each PO DAILY tablet 02/03/20 Docusate Sodium [Colace -] 300 mg PO HS capsule 02/03/20 Dolutegravir Sodium [Tivicay] 50 mg PO DAILY tablet 02/03/20 Glipizide [Glucotrol -] 10 mg PO BID@0700,1630 tablet 02/03/20 Lamivudine Oral Soln [Epivir Oral Solution -] 50 mg PO DAILY ml 02/03/20 Metoprolol Tartrate [Lopressor -] 25 mg PO BID tablet 02/03/20 Pioglitazone HCl [Actos] 30 mg PO DAILY@0700 tablet 02/03/20 Rosuvastatin [Crestor -] 10 mg PO HS tablet 02/03/20 Review of Systems - Review of Systems Constitutional: reports: No Symptoms Eyes: reports: No Symptoms HENT: reports: No Symptoms Neck: reports: No Symptoms Cardiovascular: reports: No Symptoms Gastrointestinal: reports: No Symptoms Genitourinary: reports: No Symptoms Breasts: reports: No Symptoms Reported Musculoskeletal: reports: No Symptoms Integumentary: reports: No Symptoms Neurological: reports: Syncope Endocrine: reports: No Symptoms Hematology/Lymphatic: reports: No Symptoms Psychiatric: reports: No Symptoms Vital Signs: Vital Signs Temperature 97.7 F 04/11/20 06:47 Pulse Rate 54 L 04/11/20 06:47 Respiratory Rate 18 04/11/20 06:47 Blood Pressure 112/52 L 04/11/20 06:47 O2 Sat by Pulse Oximetry (%) 97 04/11/20 06:47 Constitutional: Yes: Well Nourished, No Distress, Calm Eyes: Yes: WNL, Conjunctiva Clear, EOM Intact HENT: Yes: WNL, Atraumatic, Normocephalic Neck: Yes: WNL, Supple, Trachea Midline Respiratory: Yes: WNL, Regular, CTA Bilaterally Gastrointestinal: Yes: WNL, Normal Bowel Sounds Renal/: Yes: WNL Cardiovascular: Yes: WNL, Regular Rate and Rhythm Musculoskeletal: Yes: WNL Extremities: Yes: WNL Integumentary: Yes: WNL Neurological: Yes: WNL, Alert, Oriented ...Motor Strength: WNL Psychiatric: Yes: WNL, Alert, Oriented - Other Data Labs, Other Data: CBC, BMP 04/11/20 05:55 04/11/20 05:55 INR, PTT INR 1.05 (0.83-1.09) 04/10/20 16:55 Troponin, BNP 04/10/20 16:55 Troponin I < 0.02 Troponin, BNP 04/10/20 16:55 Troponin I < 0.02 Imaging - Results Chest X-ray: Image Reviewed (no i/e) Problem List - Problems (1) Dizziness Code(s): R42 - DIZZINESS AND GIDDINESS (2) Syncope Code(s): R55 - SYNCOPE AND COLLAPSE Qualifiers: Syncope type: unspecified Qualified Code(s): R55 - Syncope and collapse (3) Syncope and collapse Code(s): R55 - SYNCOPE AND COLLAPSE (4) [id number] kidney injury Code(s): N17.9 - ACUTE KIDNEY FAILURE, UNSPECIFIED; N18.9 - CHRONIC KIDNEY DISEASE, UNSPECIFIED Qualifiers: Acute renal failure type: unspecified Chronic kidney disease stage: stage 3 (moderate) (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 (6) Bronchitis Code(s): J40 - BRONCHITIS, NOT SPECIFIED ACUTE OR CHRONIC (7) Bronchospasm Code(s): J98.01 - ACUTE BRONCHOSPASM (8) CKD (chronic kidney disease) stage 2, GFR 60-89 ml/min Code(s): N18.2 - CHRONIC KIDNEY DISEASE, STAGE 2 (MILD) (9) COVID-19 Code(s): U07.1 - COVID-19 (10) Constipation Code(s): K59.00 - CONSTIPATION, UNSPECIFIED (11) Contusion of lower back Code(s): S30.0XXA - CONTUSION OF LOWER BACK AND PELVIS, INITIAL ENCOUNTER (12) Coronary arteriosclerosis in patient with history of previous myocardial infarction Code(s): I25.10 - ATHSCL HEART DISEASE OF [place] CORONARY ARTERY W/O ANG PCTRS; I25.2 - OLD MYOCARDIAL INFARCTION (13) Dehydration Code(s): E86.0 - DEHYDRATION (14) Diabetes mellitus Code(s): E11.9 - TYPE 2 DIABETES MELLITUS WITHOUT COMPLICATIONS Qualifiers: (15) Elbow abrasion Code(s): S50.319A - ABRASION OF UNSPECIFIED ELBOW, INITIAL ENCOUNTER (16) Fall Code(s): W19.XXXA - UNSPECIFIED FALL, INITIAL ENCOUNTER Qualifiers: Encounter type: initial encounter Qualified Code(s): W19.XXXA - Unspecified fall, initial encounter (17) Fatigue Code(s): R53.83 - OTHER FATIGUE (18) Fever Code(s): R50.9 - FEVER, UNSPECIFIED Qualifiers: Fever type: unspecified Qualified Code(s): R50.9 - Fever, unspecified (19) Generalized muscle weakness Code(s): M62.81 - MUSCLE WEAKNESS (GENERALIZED) (20) HIV disease Code(s): B20 - HUMAN IMMUNODEFICIENCY VIRUS [HIV] DISEASE (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 Code(s): B20 - HUMAN IMMUNODEFICIENCY VIRUS [HIV] DISEASE; G90.9 - DISORDER OF THE AUTONOMIC NERVOUS SYSTEM, UNSPECIFIED (22) Hip pain, left Code(s): M25.552 - PAIN IN LEFT HIP (23) Hyperglycemia Code(s): R73.9 - HYPERGLYCEMIA, UNSPECIFIED (24) Hyperlipemia Code(s): E78.5 - HYPERLIPIDEMIA, UNSPECIFIED (25) Hypoglycemia Code(s): E16.2 - HYPOGLYCEMIA, UNSPECIFIED (26) Hypoxemia Code(s): R09.02 - HYPOXEMIA (27) Low back pain Code(s): M54.5 - LOW BACK PAIN (28) Pain, dental Code(s): K08.89 - OTHER SPECIFIED DISORDERS OF TEETH AND SUPPORTING STRUCTURES (29) Peripheral neuropathy due to metabolic disorder Code(s): E88.9 - METABOLIC DISORDER, UNSPECIFIED; G99.0 - AUTONOMIC NEUROPATHY IN DISEASES CLASSIFIED ELSEWHERE (30) Pneumonia Code(s): J18.9 - PNEUMONIA, UNSPECIFIED ORGANISM (31) Sepsis Code(s): A41.9 - SEPSIS, UNSPECIFIED ORGANISM (32) TIA (transient ischemic attack) Code(s): G45.9 - TRANSIENT CEREBRAL ISCHEMIC ATTACK, UNSPECIFIED Qualifiers: Transient cerebral ischemia type: unspecified Qualified Code(s): G45.9 - Transient cerebral ischemic attack, unspecified (33) Toe pain Code(s): M79.676 - PAIN IN UNSPECIFIED TOE(S) Qualifiers: Laterality: right Qualified Code(s): M79.674 - Pain in right toe(s) (34) Upper respiratory infection, viral Code(s): J06.9 - ACUTE UPPER RESPIRATORY INFECTION, UNSPECIFIED (35) Weakness generalized Code(s): R53.1 - WEAKNESS (36) Aortic valve regurgitation Code(s): I35.1 - NONRHEUMATIC AORTIC (VALVE) INSUFFICIENCY (37) CAD (coronary artery disease) Code(s): I25.10 - ATHSCL HEART DISEASE OF [place] CORONARY ARTERY W/O ANG PCTRS (38) Carpal tunnel syndrome on both sides Code(s): G56.03 - CARPAL TUNNEL SYNDROME, BILATERAL UPPER LIMBS (39) Chronic renal insufficiency, stage IV (severe) Code(s): N18.4 - CHRONIC KIDNEY DISEASE, STAGE 4 (SEVERE) (40) Diabetes mellitus treated with oral medication Code(s): E11.9 - TYPE 2 DIABETES MELLITUS WITHOUT COMPLICATIONS; Z79.84 - OCCUPATIONAL HEALTH RN (CURRENT) USE OF ORAL HYPOGLYCEMIC DRUGS (41) HIV (human immunodeficiency virus infection) Code(s): B20 - HUMAN IMMUNODEFICIENCY VIRUS [HIV] DISEASE (42) Polyneuropathy with HIV infection Code(s): B20 - HUMAN IMMUNODEFICIENCY VIRUS [HIV] DISEASE; G63 - POLYNEUROPATHY IN DISEASES CLASSIFIED ELSEWHERE (43) Vitamin D deficiency Code(s): E55.9 - VITAMIN D DEFICIENCY, UNSPECIFIED Assessment/Plan 84M with PMH of CAD x4 stents, CKD, HIV (on HAART therapy), DM, on daily ASA present to ED via EMS after a fall today. ECHO nl ef December 2019 Plan; r/o mi serial TNIs and EKG Telemetry c. duplex dvt plx
[2020-04-11 07:58] LABS: CHOLESTEROL 101 mg/dL (50-200); HDL CHOLESTEROL 30 mg/dL (40-60); LDL CHOLESTEROL (ONLY SJRH) 52 mg/dL (5-100); TRIGLYCERIDES 203 mg/dL (0-150)
--- NOTE | 2020-04-11 08:21 | PN ---
Progress Note, Physician Chief Complaint: Patient seen and examined at the bedside, no acute events from last night, no dizziness. History of Present Illness: This 84 yr old w/m with PMH of CAD, 4 stents, HIV, DM admitted via ER with an acute syncope and collapse preceded by dizziness and followed by a concussion without LOC and a laceration of occipital region. - Current Medication List Current Medications: Active Medications Acetaminophen (Tylenol -) 650 mg PO Q6H PRN PRN Reason: PAIN LEVEL 6-10 Ascorbic Acid (Vitamin C -) 500 mg PO BID [facility] Last Admin: 04/10/20 23:19 Dose: 500 mg Documented by: Aspirin (Ecotrin -) 81 mg PO DAILY [facility] Cholecalciferol (Vitamin D3 -) 2,000 unit PO BID [facility] Last Admin: 04/10/20 23:19 Dose: 2,000 unit Documented by: Clopidogrel Bisulfate (Plavix -) 75 mg PO DAILY [facility] Docusate Sodium (Colace -) 300 mg PO HS [facility] Last Admin: 04/10/20 22:11 Dose: 300 mg Documented by: Fenofibric Acid (Trilipix -) 135 mg PO DAILY [facility] Dextrose/Sodium Chloride (D5-1/2ns -) 1,000 mls @ 50 mls/hr IV ASDIR [facility] Last Admin: 04/10/20 21:49 Dose: 50 mls/hr Documented by: Insulin Aspart (Novolog Vial Sliding Scale -) 1 vial SQ [facility]; Protocol Last Admin: 04/11/20 06:48 Dose: Not Given Documented by: Lamivudine (Epivir Oral Solution -) 50 mg PO DAILY [facility] Melatonin (Melatonin) 5 mg PO HS PRN PRN Reason: INSOMNIA Last Admin: 04/11/20 01:21 Dose: 5 mg Documented by: Metoprolol Tartrate (Lopressor -) 25 mg PO BID [facility] Last Admin: 04/10/20 22:11 Dose: 25 mg Documented by: Multivitamins/Minerals (Theragran-M) 1 each PO DAILY [facility] Rosuvastatin Calcium (Crestor -) 10 mg PO HS [facility] Last Admin: 04/10/20 23:19 Dose: 10 mg Documented by: Vitamin E (Vitamin E -) 400 unit PO DAILY [facility] - Objective Vital Signs: Vital Signs Temperature 97.7 F 04/11/20 06:47 Pulse Rate 54 L 04/11/20 06:47 Respiratory Rate 18 04/11/20 06:47 Blood Pressure 112/52 L 04/11/20 06:47 O2 Sat by Pulse Oximetry (%) 97 04/11/20 06:47 Constitutional: Yes: Well Nourished, No Distress, Calm Eyes: Yes: Conjunctiva Clear, EOM Intact HENT: Yes: Atraumatic, Normocephalic Neck: Yes: Supple, Trachea Midline Cardiovascular: Yes: Regular Rate and Rhythm Respiratory: Yes: Regular, CTA Bilaterally Gastrointestinal: Yes: Normal Bowel Sounds, Soft ...Rectal Exam: Yes: Deferred Genitourinary: Yes: WNL Breast(s): Yes: WNL Musculoskeletal: Yes: WNL Extremities: Yes: WNL Edema: No Peripheral Pulses WNL: Yes Integumentary: Yes: WNL Neurological: Yes: WNL ...Motor Strength: WNL Psychiatric: Yes: WNL Labs: CBC, BMP 04/11/20 05:55 04/11/20 05:55 INR, PTT INR 1.05 (0.83-1.09) 04/10/20 16:55 - ....Imaging Other: Report Reviewed (lab data reviewed) Problem List - Problems (1) Dizziness Code(s): R42 - DIZZINESS AND GIDDINESS (2) Syncope Code(s): R55 - SYNCOPE AND COLLAPSE Qualifiers: Syncope type: unspecified Qualified Code(s): R55 - Syncope and collapse (3) Syncope and collapse Code(s): R55 - SYNCOPE AND COLLAPSE (4) [id number] kidney injury Code(s): N17.9 - ACUTE KIDNEY FAILURE, UNSPECIFIED; N18.9 - CHRONIC KIDNEY DISEASE, UNSPECIFIED Qualifiers: Acute renal failure type: unspecified Chronic kidney disease stage: stage 3 (moderate) (5) CKD (chronic kidney disease) stage 2, GFR 60-89 ml/min Code(s): N18.2 - CHRONIC KIDNEY DISEASE, STAGE 2 (MILD) (6) Coronary arteriosclerosis in patient with history of previous myocardial infarction Code(s): I25.10 - ATHSCL HEART DISEASE OF [place] CORONARY ARTERY W/O ANG PCTRS; I25.2 - OLD MYOCARDIAL INFARCTION (7) Dehydration Code(s): E86.0 - DEHYDRATION (8) Diabetes mellitus Code(s): E11.9 - TYPE 2 DIABETES MELLITUS WITHOUT COMPLICATIONS Qualifiers: (9) Fall Code(s): W19.XXXA - UNSPECIFIED FALL, INITIAL ENCOUNTER Qualifiers: Encounter type: initial encounter Qualified Code(s): W19.XXXA - Unspecified fall, initial encounter (10) Generalized muscle weakness Code(s): M62.81 - MUSCLE WEAKNESS (GENERALIZED) (11) HIV disease Code(s): B20 - HUMAN IMMUNODEFICIENCY VIRUS [HIV] DISEASE (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 Code(s): B20 - HUMAN IMMUNODEFICIENCY VIRUS [HIV] DISEASE; G90.9 - DISORDER OF THE AUTONOMIC NERVOUS SYSTEM, UNSPECIFIED (13) Hyperglycemia Code(s): R73.9 - HYPERGLYCEMIA, UNSPECIFIED (14) Hyperlipemia Code(s): E78.5 - HYPERLIPIDEMIA, UNSPECIFIED (15) Peripheral neuropathy due to metabolic disorder Code(s): E88.9 - METABOLIC DISORDER, UNSPECIFIED; G99.0 - AUTONOMIC NEUROPATHY IN DISEASES CLASSIFIED ELSEWHERE (16) Aortic valve regurgitation Code(s): I35.1 - NONRHEUMATIC AORTIC (VALVE) INSUFFICIENCY (17) CAD (coronary artery disease) Code(s): I25.10 - ATHSCL HEART DISEASE OF [place] CORONARY ARTERY W/O ANG PCTRS (18) Chronic renal insufficiency, stage IV (severe) Code(s): N18.4 - CHRONIC KIDNEY DISEASE, STAGE 4 (SEVERE) (19) Polyneuropathy with HIV infection Code(s): B20 - HUMAN IMMUNODEFICIENCY VIRUS [HIV] DISEASE; G63 - POLYNEUROPATHY IN DISEASES CLASSIFIED ELSEWHERE (20) Vitamin D deficiency Code(s): E55.9 - VITAMIN D DEFICIENCY, UNSPECIFIED Assessment/Plan Assessment/plan: acute dizziness, acute syncope and collapse, acute concussion without LOC, acute laceration of occipital region, CAD, 4 stents, HIV, CKD, DM; plavix and aspirin for a/c and DVT prophylaxis; IV fluids for hydration; sliding scale regular insulin coverage for DM; HAART for HIV; fenofibric acid and crestor for HLD; troponin and cardiac enzymes, carotid duplex, physical therapy.
[2020-04-11] MEDS ORDERED: DEXTROSE 5%-0.45% SALINE 1,000 ML IV SCH (08:37)
--- NOTE | 2020-04-11 08:39 | PN ---
Progress Note, Physician History of Present Illness: 84M with PMH of CAD x4 stents, CKD, HIV (on HAART therapy), DM, on daily ASA present to ED via EMS after a fall today. He reports being at his sink, feeling dizziness (described as room spinning) and fell, and hit his head. Denied LOC. No TAMEZ, vision changes, cp, sob, or palpitations prior to the fall. He's had a few of these episodes before, but unsure of the cause. Currently reports head and neck pain, but denies vision changes, dizziness, numbness, tingling, or weakness. - Current Medication List Current Medications: Active Medications Acetaminophen (Tylenol -) 650 mg PO Q6H PRN PRN Reason: PAIN LEVEL 6-10 Ascorbic Acid (Vitamin C -) 500 mg PO BID [facility] Last Admin: 04/10/20 23:19 Dose: 500 mg Documented by: Aspirin (Ecotrin -) 81 mg PO DAILY [facility] Cholecalciferol (Vitamin D3 -) 2,000 unit PO BID [facility] Last Admin: 04/10/20 23:19 Dose: 2,000 unit Documented by: Clopidogrel Bisulfate (Plavix -) 75 mg PO DAILY [facility] Docusate Sodium (Colace -) 300 mg PO HS [facility] Last Admin: 04/10/20 22:11 Dose: 300 mg Documented by: Fenofibric Acid (Trilipix -) 135 mg PO DAILY [facility] Dextrose/Sodium Chloride (D5-1/2ns -) 1,000 mls @ 60 mls/hr IV ASDIR [facility] Insulin Aspart (Novolog Vial Sliding Scale -) 1 vial SQ [facility]; Protocol Last Admin: 04/11/20 06:48 Dose: Not Given Documented by: Lamivudine (Epivir Oral Solution -) 50 mg PO DAILY [facility] Melatonin (Melatonin) 5 mg PO HS PRN PRN Reason: INSOMNIA Last Admin: 04/11/20 01:21 Dose: 5 mg Documented by: Metoprolol Tartrate (Lopressor -) 25 mg PO BID [facility] Last Admin: 04/10/20 22:11 Dose: 25 mg Documented by: Multivitamins/Minerals (Theragran-M) 1 each PO DAILY [facility] Rosuvastatin Calcium (Crestor -) 10 mg PO HS [facility] Last Admin: 04/10/20 23:19 Dose: 10 mg Documented by: Vitamin E (Vitamin E -) 400 unit PO DAILY [facility] - Objective Vital Signs: Vital Signs Temperature 97.7 F 04/11/20 06:47 Pulse Rate 54 L 04/11/20 06:47 Respiratory Rate 18 04/11/20 06:47 Blood Pressure 112/52 L 04/11/20 06:47 O2 Sat by Pulse Oximetry (%) 97 04/11/20 06:47 Labs: CBC, BMP 04/11/20 05:55 04/11/20 05:55 INR, PTT INR 1.05 (0.83-1.09) 04/10/20 16:55
[2020-04-11] MEDS ORDERED: PT OWN MED DRAWER 7, Y5N ONE ×3 (09:11→13:26)
--- NOTE | 2020-04-11 09:54 | EKG ---
Test Reason : Blood Pressure : / mmHG Vent. Rate : 062 BPM Atrial Rate : 062 BPM P-R Int : 192 ms QRS Dur : 158 ms QT Int : 464 ms P-R-T Axes : 048 091 051 degrees QTc Int : 470 ms NORMAL SINUS RHYTHM RIGHT BUNDLE BRANCH BLOCK ABNORMAL ECG WHEN COMPARED WITH ECG OF 07-APR-2020 16:48, NO SIGNIFICANT CHANGE WAS FOUND Confirmed by Ovidio Chahal MD ([id number]) on 04/11/2020 9:53:55 AM Referred By: Confirmed By:Ovidio Chahal MD
[2020-04-11] MEDS: MULTIVITAMINS THER W-MINERALS COMBO TABLET (FP) PO SCH (10:14)
[2020-04-11] MEDS: CLOPIDOGREL BISULFATE 75 MG TABLET (FP) PO SCH (10:14)
[2020-04-11] MEDS: CHOLECALCIFEROL (VIT D3) 1,000 UNIT (25 MCG) TABLET PO SCH (10:15)
[2020-04-11] MEDS: ASCORBIC ACID 500 MG TABLET (FP) PO SCH ×2 (10:15→22:23)
[2020-04-11] MEDS: ASPIRIN COATED 81 MG TABLET.EC PO SCH (10:15)
[2020-04-11] MEDS: FENOFIBRIC ACID 135 MG CAP PO SCH (10:15)
[2020-04-11] MEDS: METOPROLOL TARTRATE 25 MG TABLET (FP) PO SCH ×2 (10:37→22:23)
--- NOTE | 2020-04-11 12:14 | PN ---
Progress Note (short form) - Note Progress Note: Consult Specialty:: Cardiology Referred by:: Medicine Reason for Consultation:: fall - History of Present Illness Chief Complaint: fall History of Present Illness: 84M h/o HIV on HAART, CAD s/p stents x 4, DM, HLD, CKD p/w of fall on day of admission. felt weak and his legs "went out" similar to prior admissions. denies loss of consciousness. had episode prior to fall of dizziness when he turned his head. described dizziness as "room spinning" after which he felt weak in his legs and then fell and hit his head, with laceration to head s/p mary in ER. Denies decrease in PO intake but has history of orthostatic hypotension with hyperdynamic LV function and SAIMA at prior admissions. Currently feels at baseline, no chest pain, palps, dyspnea, dizziness. Sees Dr. Crenshaw for cardio. 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 Cardio/Vascular: Yes: Hyperlipdemia Infectious Disease: Yes: HIV Musculoskeletal: Yes: Chronic low back pain, Osteoarthritis Endocrine: Yes: Diabetes Mellitus - Past Surgical History Past Surgical History: Yes: Carotid Endarterectomy (right) - Alcohol/Substance Use Hx Alcohol Use: No - Smoking History Smoking history: Unknown if ever smoked Have you smoked in the past 12 months: No Aproximately how many cigarettes per day: 0 - Social History ADL: Independent History of Recent Travel: No Home Medications - Allergies Allergies/Adverse Reactions: Allergies Allergy/AdvReac Type Severity Reaction Status Date / Time No Known Allergies Allergy Verified 04/07/20 13:43 Home Medications Medication Instructions Recorded Alpha Lipoic Acid 200 mg PO TID 12/17/12 Ascorbate Calcium/Bioflav [Cande-C 1 each PO TID 12/17/12 500 mg Tablet] Fenofibrate [Lipofen] 160 mg PO DAILY 12/17/12 Ferrous Fumarate 65 mg PO DAILY 12/17/12 Sitagliptin Phosphate [Januvia] 25 mg PO DAILY 08/25/16 Cholecalciferol (Vitamin D3) 2,000 unit PO BID 11/27/16 [Vitamin D3] Multivitamin with Minerals [Icaps 1 each PO DAILY 11/27/16 Plus] Vitamin B Complex 1 tab PO DAILY 11/27/16 Vitamin E 400 unit PO DAILY 11/27/16 Carboxymethylcellulos/Glycerin 15 ml OP PRN 7 Days #1 drops 09/16/18 [Lubricant 0.5-0.9% Eye Drops] Tamsulosin HCl [Flomax] 0.4 mg PO DAILY 10/01/18 Fluticasone Prop 0.05% Nasal 1 spray NS BID 12/13/19 [Flonase -] Icosapent Ethyl [Vascepa] 2 cap PO BID 12/13/19 Lamivudine 50 mg PO DAILY 12/14/19 Melatonin 5 mg PO HS PRN tab 12/17/19 Acetaminophen [Tylenol .Regular 650 mg PO Q6H PRN tablet 02/03/20 Strength -] Aspirin Coated [Ecotrin -] 81 mg PO DAILY tablet.ec 02/03/20 Clopidogrel Bisulfate [Plavix -] 75 mg PO DAILY tablet 02/03/20 Darunavir/Cobicistat [Prezcobix 1 each PO DAILY tablet 02/03/20 800 mg-150 mg Tablet] Docusate Sodium [Colace -] 300 mg PO HS capsule 02/03/20 Dolutegravir Sodium [Tivicay] 50 mg PO DAILY tablet 02/03/20 Glipizide [Glucotrol -] 10 mg PO BID@0700,1630 tablet 02/03/20 Lamivudine Oral Soln [Epivir Oral 50 mg PO DAILY ml 02/03/20 Solution -] Metoprolol Tartrate [Lopressor -] 25 mg PO BID tablet 02/03/20 Pioglitazone HCl [Actos] 30 mg PO DAILY@0700 tablet 02/03/20 Rosuvastatin [Crestor -] 10 mg PO HS tablet 02/03/20 Family Medical History Family History: Unremarkable Review of Systems - Review of Systems Constitutional: reports: No Symptoms Eyes: reports: No Symptoms HENT: reports: No Symptoms Neck: reports: No Symptoms Cardiovascular: reports: No Symptoms Respiratory: reports: No Symptoms Gastrointestinal: reports: No Symptoms Genitourinary: reports: No Symptoms Musculoskeletal: reports: No Symptoms Integumentary: reports: No Symptoms Neurological: reports: No Symptoms Endocrine: reports: No Symptoms Hematology/Lymphatic: reports: No Symptoms Psychiatric: reports: No Symptoms Current Medications Generic Name Dose Route Start Last Admin Trade Name Freq PRN Reason Stop Dose Admin Acetaminophen 650 mg 04/10/20 21:04 Tylenol - PO Q6H PRN PAIN LEVEL 6-10 Ascorbic Acid 500 mg 04/10/20 22:00 04/11/20 10:15 Vitamin C - PO 500 mg BID YAHAIRA Administration Aspirin 81 mg 04/11/20 10:00 04/11/20 10:15 Ecotrin - PO 81 mg DAILY YAHAIRA Administration Cholecalciferol 2,000 unit 04/10/20 22:00 04/11/20 10:15 Vitamin D3 - PO 2,000 unit BID YAHAIRA Administration Clopidogrel Bisulfate 75 mg 04/11/20 10:00 04/11/20 10:14 Plavix - PO 75 mg DAILY YAHAIRA Administration Docusate Sodium 300 mg 04/10/20 22:00 04/10/20 22:11 Colace - PO 300 mg HS YAHAIRA Administration Fenofibric Acid 135 mg 04/11/20 10:00 04/11/20 10:15 Trilipix - PO 135 mg DAILY YAHAIRA Administration Dextrose/Sodium Chloride 1,000 mls @ 60 mls/hr 04/11/20 08:37 04/11/20 10:09 D5-1/2ns - IV 60 mls/hr ASDIR YAHAIRA Administration Insulin Aspart 1 vial 04/10/20 22:00 04/11/20 06:48 Novolog Vial Sliding Scale - SQ Not Given ACHS [facility] Protocol Lamivudine 50 mg 04/11/20 10:00 Epivir Oral Solution - PO DAILY [facility] Melatonin 5 mg 04/10/20 21:04 04/11/20 01:21 Melatonin PO 5 mg HS PRN Administration INSOMNIA Metoprolol Tartrate 25 mg 04/10/20 22:00 04/11/20 10:37 Lopressor - PO 25 mg BID YAHAIRA Administration Multivitamins/Minerals 1 each 04/11/20 10:00 04/11/20 10:14 Theragran-M PO 1 each DAILY [facility] Administration Rosuvastatin Calcium 10 mg 04/10/20 22:00 04/10/20 23:19 Crestor - PO 10 mg HS YAHAIRA Administration Vitamin E 400 unit 04/11/20 10:00 Vitamin E - PO DAILY [facility] Vital Signs Period Temp Pulse Resp BP Sys/Sanchez Pulse Ox Last 24 Hr 97.3 F-97.7 F 54-78 16-18 105-150/50-75 97-100 Constitutional: Yes: No Distress, Calm Eyes: Yes: Conjunctiva Clear, EOM Intact HENT: Yes: Atraumatic, Normocephalic Neck: Yes: Supple, Trachea Midline Respiratory: Yes: Regular, CTA Bilaterally Gastrointestinal: Yes: Normal Bowel Sounds, Soft Cardiovascular: Yes: Regular Rate and Rhythm JVD: No Carotid Bruit: No PMI: Non-Displaced Heart Sounds: Yes: S1, S2 Extremities: No: Cold Edema: No Integumentary: No: Jaundice Neurological: Yes: Alert, Oriented Psychiatric: No: Agitated Laboratory Last Values WBC 8.3 K/mm3 (4.0-10.0) 04/11/20 05:55 RBC 3.52 M/mm3 (4.00-5.60) L 04/11/20 05:55 Hgb 11.3 GM/dL (11.7-16.9) L 04/11/20 05:55 Hct 33.6 % (35.4-49) L 04/11/20 05:55 MCV 95.5 fl (80-96) 04/11/20 05:55 MCH 32.2 pg (25.7-33.7) 04/11/20 05:55 MCHC 33.7 g/dl (32.0-35.9) 04/11/20 05:55 RDW 13.2 % (11.9-15.9) 04/11/20 05:55 Plt Count 213 K/MM3 (134-434) 04/11/20 05:55 MPV 7.8 fl (7.5-11.1) 04/11/20 05:55 Absolute Neuts (auto) 3.8 K/mm3 (1.5-8.0) 04/11/20 05:55 Neutrophils % 45.5 % (42.8-82.8) 04/11/20 05:55 Lymphocytes % 36.3 % (8-40) 04/11/20 05:55 Monocytes % 10.6 % (3.8-10.2) H 04/11/20 05:55 Eosinophils % 7.0 % (0-4.5) H 04/11/20 05:55 Basophils % 0.6 % (0-2.0) 04/11/20 05:55 Nucleated RBC % 0 % (0-0) 04/11/20 05:55 PT with INR 12.40 SEC (9.7-13.0) 04/10/20 16:55 INR 1.05 (0.83-1.09) 04/10/20 16:55 PTT (Actin FS) 30.6 SECONDS (25.2-36.5) 04/10/20 16:55 Sodium 141 mmol/L (136-145) 04/11/20 05:55 Potassium 3.6 mmol/L (3.5-5.1) 04/11/20 05:55 Chloride 107 mmol/L (98-107) 04/11/20 05:55 Carbon Dioxide 28 mmol/L (21-32) 04/11/20 05:55 Anion Gap 7 MMOL/L (8-16) L 04/11/20 05:55 BUN 22.3 mg/dL (7-18) H 04/11/20 05:55 Creatinine 1.9 mg/dL (0.55-1.3) H 04/11/20 05:55 Est GFR (CKD-EPI)AfAm 37.22 04/11/20 05:55 Est GFR (CKD-EPI)NonAf 32.12 04/11/20 05:55 POC Glucometer 220 UNITS (80-120) 04/11/20 11:26 Random Glucose 113 mg/dL (74-106) H 04/11/20 05:55 Hemoglobin A1c % 8.7 % (4.2-6.3) H 04/11/20 05:55 Calcium 8.7 mg/dL (8.5-10.1) 04/11/20 05:55 Total Bilirubin 0.5 mg/dL (0.2-1) 04/11/20 05:55 AST 20 U/L (15-37) 04/11/20 05:55 ALT 22 U/L (13-61) 04/11/20 05:55 Alkaline Phosphatase 42 U/L (45-117) L 04/11/20 05:55 Creatine Kinase 80 U/L (26-308) 04/10/20 16:55 Troponin I < 0.02 ng/ml (0.00-0.05) 04/11/20 05:55 Total Protein 6.3 g/dl (6.4-8.2) L 04/11/20 05:55 Albumin 3.2 g/dl (3.4-5.0) L 04/11/20 05:55 Triglycerides 203 mg/dL (0-150) H 04/11/20 05:55 Cholesterol 101 mg/dL (50-200) 04/11/20 05:55 Total LDL Cholesterol 52 mg/dL (5-100) 04/11/20 05:55 HDL Cholesterol 30 mg/dL (40-60) L 04/11/20 05:55 25-OH Vitamin D Total 26.3 ng/mL (30-100) L 04/11/20 05:55 TSH 2.13 uIU/ml (0.358-3.74) D 04/11/20 05:55 Urine Color Yellow 04/10/20 19:30 Urine Appearance Clear 04/10/20 19:30 Urine pH 6.5 (5.0-8.0) 04/10/20 19:30 Ur Specific [place] 1.013 (1.010-1.035) 04/10/20 19:30 Urine Protein Trace (NEGATIVE) 04/10/20 19:30 Urine Glucose (UA) 2+ (NEGATIVE) H 04/10/20 19:30 Urine Ketones Negative (NEGATIVE) 04/10/20 19:30 Urine Blood Negative (NEGATIVE) 04/10/20 19:30 Urine Nitrite Negative (NEGATIVE) 04/10/20 19:30 Urine Bilirubin Negative (NEGATIVE) 04/10/20 19:30 Urine Urobilinogen 0.2 mg/dL (0.2-1.0) 04/10/20 19:30 Ur Leukocyte Esterase Negative (NEGATIVE) 04/10/20 19:30 Blood Type A POSITIVE 04/10/20 16:55 Antibody Screen Negative 04/10/20 16:55 Assessment/Plan EKG: sinus, RBBB, unchanged compared to prior echo 12/2019 mild LVH, hyperdynamic LV, EF >75% with intracavitary gradient. RV nl, mild , mild MR tele: sinus fall - multiple prior episodes - has history of possible vertigo and has been orthostatic in the past, also complains of leg weakness and back pain leading to legs giving out and falling - check orthostatics - note prior history +orthostatics with hyperdynamic LV on echo with SAIMA and improvement with IVF - recent echo unremarkable, tele benign - trop neg x 2, no ischemic change on EKG - unlikely ACS - carotid dopplers pending DM - manage per primary CAD - cont aspirin, plavix, statin HTN - cont home meds SAIMA on CKD - Cr improved with IVF, likely prerenal HLD - cont statin HIV - manage per primary
--- NOTE | 2020-04-11 12:26 | EKG ---
Test Reason : Blood Pressure : / mmHG Vent. Rate : 064 BPM Atrial Rate : 064 BPM P-R Int : 208 ms QRS Dur : 164 ms QT Int : 466 ms P-R-T Axes : 035 072 009 degrees QTc Int : 480 ms NORMAL SINUS RHYTHM RIGHT BUNDLE BRANCH BLOCK ABNORMAL ECG WHEN COMPARED WITH ECG OF 10-APR-2020 16:30, NO SIGNIFICANT CHANGE WAS FOUND Confirmed by Lefty Pete ([id number]) on 04/11/2020 12:25:52 PM Referred By: HIRA CHAMBERS DR Confirmed By:Lefty Pete
[2020-04-11] MEDS ORDERED: DEXTROSE 5%-NORMAL SALINE 1,000 ML IV SCH (13:30)
[2020-04-11] MEDS: lamiVUDine 10 MG/1 ML BULK BOTTLE PO SCH (13:33)
[2020-04-11] MEDS: DOLUTEGRAVIR SODIUM 50 MG TABLET (NON-FORMULARY) PO SCH (13:33)
[2020-04-11] MEDS: DARUNAVIR 800 MG/COBICISTAT 150MG TABLET PO SCH (13:33)
[2020-04-11] MEDS: VITAMIN E 400 INTERNATIONAL-UNITS CAPSULE (FP) PO SCH (13:34)
[2020-04-11] MEDS: ROSUVASTATIN CA 10 MG TABLET (FP) PO SCH (22:23)
[2020-04-11] MEDS: DOCUSATE SODIUM 100 MG CAPSULE (FP) PO SCH (22:23)
[2020-04-12] MEDS: INSULIN SLIDING SCALE (NOVOLOG) 1 VIAL SQ SCH (06:07)
[2020-04-12 07:39] LABS: BASO % 0.9 % (0-2.0); EOS % 8.2 % (0-4.5); HEMOGLOBIN 11.2 GM/dL (11.7-16.9); LYMPH % 40.7 % (8-40); MCH 32.6 pg (25.7-33.7); MEAN CELL VOLUME 95.9 fl (80-96); MEAN PLT VOLUME 7.6 fl (7.5-11.1); MONO % 9.7 % (3.8-10.2); NEUT % 40.5 % (42.8-82.8); PLATELET COUNT 195 K/MM3 (134-434); RBC 3.44 M/mm3 (4.00-5.60); RDW 13.1 % (11.9-15.9); WHITE BLOOD COUNT 5.7 K/mm3 (4.0-10.0)
[2020-04-12 08:08] LABS: ALK PHOS 38 U/L (45-117); ANION GAP 7 MMOL/L (8-16); BILIRUBIN,TOTAL 0.4 mg/dL (0.2-1); BLOOD UREA NITROGEN 20.8 mg/dL (7-18); CALCIUM 8.2 mg/dL (8.5-10.1); CHLORIDE 109 mmol/L (98-107); CO2 25 mmol/L (21-32); CREATININE 1.6 mg/dL (0.55-1.3); GLUCOSE,RANDOM 187 mg/dL (74-106); POTASSIUM 4.1 mmol/L (3.5-5.1); SGOT/AST 22 U/L (15-37); SGPT/ALT 21 U/L (13-61); SODIUM 141 mmol/L (136-145); TOT PROT 6.2 g/dl (6.4-8.2)
--- NOTE | 2020-04-12 08:27 | DS ---
Physical Examination Vital Signs: Vital Signs Temperature 97.8 F 04/12/20 06:00 Pulse Rate 58 L 04/12/20 06:00 Respiratory Rate 18 04/12/20 06:00 Blood Pressure 147/70 04/12/20 06:00 O2 Sat by Pulse Oximetry (%) 98 04/12/20 06:00 Constitutional: Yes: Well Nourished, No Distress, Calm Eyes: Yes: Conjunctiva Clear, EOM Intact HENT: Yes: Atraumatic, Normocephalic Neck: Yes: Supple, Trachea Midline Cardiovascular: Yes: Regular Rate and Rhythm Respiratory: Yes: Regular, CTA Bilaterally Gastrointestinal: Yes: Normal Bowel Sounds, Soft ...Rectal Exam: Yes: Deferred Renal/: Yes: WNL Breast(s): Yes: WNL Musculoskeletal: Yes: Back Pain Extremities: Yes: WNL Edema: No Peripheral Pulses WNL: Yes Integumentary: Yes: WNL Neurological: Yes: WNL ...Motor Strength: WNL Psychiatric: Yes: WNL Labs: CBC, BMP 04/12/20 06:35 Discharge Summary Problems reviewed: Yes Reason For Visit: DIABETES MELLITUS, CORONARY ARTERY DISEASE, HIV Current Active Problems Dizziness (Acute) Syncope (Acute) Syncope and collapse (Acute) Condition: Stable - Instructions Diet, Activity, Other Instructions: Continue present meds. Activity as tolerated. Blood sugar upon admission was 280 and HbA1c 8.7%. Patient refused to stay in the hospital for additional 3 days for me to determine dosage of Novolog 70/30 mix. Follow up with Dr. Marks within less than one week. Total time spent over 30 minutes. Referrals: Fred Marks MD [Primary Care Provider] - - Home Medications Comprehensive Discharge Medication List: Ambulatory Orders Alpha Lipoic Acid 200 mg PO TID 12/17/12 Ascorbate Calcium/Bioflav [Cande-C 500 mg Tablet] 1 each PO TID 12/17/12 Fenofibrate [Lipofen] 160 mg PO DAILY 12/17/12 Ferrous Fumarate 65 mg PO DAILY 12/17/12 Sitagliptin Phosphate [Januvia] 25 mg PO DAILY 08/25/16 Cholecalciferol (Vitamin D3) [Vitamin D3] 2,000 unit PO BID 11/27/16 Multivitamin with Minerals [Icaps Plus] 1 each PO DAILY 11/27/16 Vitamin B Complex 1 tab PO DAILY 11/27/16 Vitamin E 400 unit PO DAILY 11/27/16 Carboxymethylcellulos/Glycerin [Lubricant 0.5-0.9% Eye Drops] 15 ml OP PRN 7 Days #1 drops 03/22/18 Tamsulosin HCl [Flomax] 0.4 mg PO DAILY 10/01/18 Fluticasone Prop 0.05% Nasal [Flonase -] 1 spray NS BID 12/13/19 Icosapent Ethyl [Vascepa] 2 cap PO BID 12/13/19 Lamivudine 50 mg PO DAILY 12/14/19 Melatonin 5 mg PO HS PRN tab 12/17/19 Acetaminophen [Tylenol .Regular Strength -] 650 mg PO Q6H PRN tablet 02/03/20 Aspirin Coated [Ecotrin -] 81 mg PO DAILY tablet.ec 02/03/20 Clopidogrel Bisulfate [Plavix -] 75 mg PO DAILY tablet 02/03/20 Darunavir/Cobicistat [Prezcobix 800 mg-150 mg Tablet] 1 each PO DAILY tablet 02/03/20 Docusate Sodium [Colace -] 300 mg PO HS capsule 02/03/20 Dolutegravir Sodium [Tivicay] 50 mg PO DAILY tablet 02/03/20 Glipizide [Glucotrol -] 10 mg PO BID@0700,1630 tablet 02/03/20 Lamivudine Oral Soln [Epivir Oral Solution -] 50 mg PO DAILY ml 02/03/20 Metoprolol Tartrate [Lopressor -] 25 mg PO BID tablet 02/03/20 Pioglitazone HCl [Actos] 30 mg PO DAILY@0700 tablet 02/03/20 Rosuvastatin [Crestor -] 10 mg PO HS tablet 02/03/20
[2020-04-12] MEDS: MULTIVITAMINS THER W-MINERALS COMBO TABLET (FP) PO SCH (09:15)
[2020-04-12] MEDS: CLOPIDOGREL BISULFATE 75 MG TABLET (FP) PO SCH (09:15)
[2020-04-12] MEDS: ASCORBIC ACID 500 MG TABLET (FP) PO SCH (09:15)
[2020-04-12] MEDS: METOPROLOL TARTRATE 25 MG TABLET (FP) PO SCH (09:15)
[2020-04-12] MEDS: ASPIRIN COATED 81 MG TABLET.EC PO SCH (09:15)
[2020-04-12] MEDS: FENOFIBRIC ACID 135 MG CAP PO SCH (09:16)
[2020-04-12] MEDS: DARUNAVIR 800 MG/COBICISTAT 150MG TABLET PO SCH (09:16)
[2020-04-12] MEDS: VITAMIN E 400 INTERNATIONAL-UNITS CAPSULE (FP) PO SCH (09:16)
[2020-04-12] MEDS: lamiVUDine 10 MG/1 ML BULK BOTTLE PO SCH (09:16)
[2020-04-12] MEDS: DOLUTEGRAVIR SODIUM 50 MG TABLET (NON-FORMULARY) PO SCH (09:16)
[2020-04-12 09:42] VITALS: BP 130/59; PULSE 64; TEMP 97.6
[2020-04-12] MEDS ORDERED: CHOLECALCIFEROL (VIT D3) 1,000 UNIT (25 MCG) TABLET PO SCH (10:00)
== END 2020-04-12 11:24 | disposition home or self-care (01) ==
LOC: JER 15:32 → JERBED 20:00 → J4W 04-11 00:55
PROVIDERS: ADMIT Internal Medicine; ATTEND Internal Medicine
PROC: 0HQ0XZZ Repair Scalp Skin, External Approach (ICD-10-PCS; principal; 2020-04-10)
PROC: 3E0234Z Introduction of Serum, Toxoid and Vaccine into Muscle, Percutaneous Approach (ICD-10-PCS; 2020-04-10)
PROC: 3E013VG Introduction of Insulin into Subcutaneous Tissue, Percutaneous Approach (ICD-10-PCS; 2020-04-10)
DX: I25.10 Atherosclerotic heart disease of native coronary artery without angina pectoris (principal); B20 Human immunodeficiency virus [HIV] disease; E11.22 Type 2 diabetes mellitus with diabetic chronic kidney disease; Z79.82 Long term (current) use of aspirin; Z95.5 Presence of coronary angioplasty implant and graft; E78.5 Hyperlipidemia, unspecified; N18.30 Chronic kidney disease, stage 3 unspecified; I25.2 Old myocardial infarction; M62.81 Muscle weakness (generalized); E86.0 Dehydration; Z79.4 Long term (current) use of insulin; S06.0X9A Concussion with loss of consciousness of unspecified duration, initial encounter; G90.9 Disorder of the autonomic nervous system, unspecified; E88.9 Metabolic disorder, unspecified; I35.1 Nonrheumatic aortic (valve) insufficiency; E55.9 Vitamin D deficiency, unspecified; W18.39XA Other fall on same level, initial encounter; Y93.89 Activity, other specified; Y92.009 Unspecified place in unspecified non-institutional (private) residence as the place of occurrence of the external cause
CPT/HCPCS: 12002; 36415; 70450-TC; 71045-TC-FY; 72125-TC; 72170-TC-FY; 80053; 80061; 81003; 82306; 82550; 82962; 83036; 83721; 83970; 84443; 84484; 85025; 85610; 85730; 86850; 86900; 86901; 90471; 90715; 93005; 93010; 93880-TC; 96372; 96374; 96375; 97116-GP; 97161-GP; 99285-25; C9803; G0378; U0003

== ENCOUNTER 2020-04-17 14:04 | Emergency (ER) | payer BC, OTHER ==
[2020-04-17 14:10] VITALS: BP 101/53; PULSE 73; TEMP 97.8; BMI 21.9
--- OUTSIDE RECORDS SUMMARY | 2020-04-17 14:25 | XMS ---
:1935 Author Organization [facility] Care Team Providers Name Role Phone ED STAFF PHYSICIANBEVERLEY Unavailable Unavailable [facility] Unavailable Unavailable Digiorno, Jayden Unavailable Unavailable [...] is protected by Article 27-F of the [facility] Public Health law. If you continue you may haveaccess to information: Regarding HIV / AIDS; Provided by facilities licensed or operated by the [facility] Office of Mental Health; or Provided by the [facility] Office for People With Developmental Disabilities. If such information is present, then the following [facility] mandated warning applies: This information has [...] law may result in a fine or long term sentence or both. A general authorization for the release of medical or other information is NOT sufficient authorization for further disclosure. Encounters Encounter Providers Location Date Indications Data Source(s ) Attender: Jayden 03/14/2020 [facility] ([facility] Digiorno 12:00:00 AM ED Medical, ) Office Attender: Jayden Singh 03/14/2020 12:00:00 AM EDT [facility] ([facility], ) Office Outpatient<td Attender: [facility] 01/28/2020 Hiv CARMINE ID="encounterTypeDescriptionID0">Follow-Up</td><td>Fred Ibarra [place] MEDICINE & 12:33:00 PM InfectionChronic ([facility] [place] WISE</td><td>[facility] MEDICINE & INFECTIOUS [place] INFECTIOUS EDT - [place] Medicine DISEASE</td><td>01/28/2020</td><td><content DISEASE FailureDiabetes and Infectious ID="encounterDiagnosisID0-0">Hiv Infection</content>, 01:40:00 PM [place] Disease) <content ID="encounterDiagnosisID0-1">Diabetes EDT [place]</content>, <content ID="encounterDiagnosisID0-2">Chronic Renal Failure</content></td> Hiv Infection Chronic Renal Failure Diabetes [place] Outpatient<td Attender: [facility] 12/27/2019 Hiv MERRY ID="encounterTypeDescriptionID0">Follow-Up</td><td>[place] MEDICINE & 11:46:00 AM InfectionDiabetes ([facility] [place] WISE</td><td>[facility] MEDICINE & INFECTIOUS [place] INFECTIOUS EDT - [place] Medicine DISEASE</td><td>12/27/2019</td><td><content DISEASE and Infectious ID="encounterDiagnosisID0-0">Diabetes 11:59:00 PM Disease) [place]</content>, <content EDT ID="encounterDiagnosisID0-1">Hiv Infection</content></td> Hiv Infection Diabetes [place] Outpatient<td Attender: [facility] 11/22/2019 Hiv CARMINE ID="encounterTypeDescriptionID0">Follow-Up</td><td>Fred [place] MEDICINE & 02:25:00 PM InfectionDiabetes ([facility] [place] WISE</td><td>[facility] MEDICINE & INFECTIOUS [place] INFECTIOUS EDT - [place] Medicine DISEASE</td><td>11/22/2019</td><td><content DISEASE and Infectious ID="encounterDiagnosisID0-0">Diabetes 03:12:00 PM Disease) [place]</content>, <content EDT ID="encounterDiagnosisID0-1">Hiv Infection</content></td> Hiv Infection Diabetes [place] Emergency Attender: BEVERLEY ED STAFF H 09/27/2019 11:18:00 AM [place] PHYSICIANAttender: STAFF ED EDT - 09/27/2019 Medical Center STAFF PHYSICIANAdmitter: 10:10:00 PM EDT BEVERLEY ED STAFF PHYSICIAN Patient discharged. Lab results<td Attender: [facility] 09/14/2019 Hiv CARMINE ID="encounterTypeDescriptionID0">Lab [place] MEDICINE & 03: 35:00 PM InfectionDiabetes ([facility] results</td><td>Fred Marks MD INFECTIOUS EDT - [place] Medicine </td><td>[facility] MEDICINE & DISEASE 0 and Infectious INFECTIOUS 05:10:00 PM Disease) DISEASE</td><td>09/14/2019</td><td><content EDT ID="encounterDiagnosisID0-0">Diabetes [place]</content>, <content ID="encounterDiagnosisID0-1">Hiv Infection</content></td> Hiv Infection Diabetes [place] Outpatient Attender: [id number] 08/24/2019 12:22:46 PM [facility] ([facility]) Patient admitted. Outpatient<td Attender: [facility] 06/15/2019 Hiv CARMINE ID="encounterTypeDescriptionID0">Coming to [facility] & 01:42:00 PM InfectionDiabetes ([facility] have forms completed</td><td>Fred Marks MD INFECTIOUS EST - [place] Medicine </td><td>[facility] MEDICINE & DISEASE 9 and Infectious INFECTIOUS 03:02:00 PM Disease) DISEASE</td><td>06/15/2019</td><td><content EST ID="encounterDiagnosisID0-0">Diabetes [place]</content>, <content ID="encounterDiagnosisID0-1">Hiv Infection</content></td> Hiv Infection Diabetes [place] Outpatient<td Attender: [facility] 02/22/2019 Hiv CARMINE ID="encounterTypeDescriptionID0">Walk-in [facility] & 12:05:00 PM InfectionDiabetes ([facility] patient</td><td>Fred Marks MD INFECTIOUS EDT - [place] Medicine </td><td>[facility] MEDICINE & DISEASE 9 and Infectious INFECTIOUS 12:57:00 PM Disease) DISEASE</td><td>02/22/2019</td><td><content EDT ID="encounterDiagnosisID0-0">Diabetes [place]</content>, <content ID="encounterDiagnosisID0-1">Hiv Infection</content></td> Hiv Infection Diabetes [place] Medications Medication Brand Start Product Dose Route Administrative Pharmacy atus Indications Reaction Description Data Name Date Form Instructions Instructions Source(s) Tamsulosin Tamsul active tamsulos in MERRY hydrochlori osin 2020 hydrochlorid ([facility] de 0.4 MG HCl 12:00: e 0.4 MG christensen [place] Oral 0.4 MG 00 AM Oral Capsule Medi cine Capsule Oral EDT and Tamsulosin Capsul Infecti ous HCl 0.4 MG e Disease) Oral Capsule Metoprolol Metopr active metoprol ol MERRY Tartrate 25 olol 2020 tartrate 25 ( [facility] MG Oral Tartra 12:00: MG Oral [place]ensen [place] Tablet te 25 00 AM Tablet Medicine MG EDT and Oral Infectious Tablet Disease) dolutegravi Tivica active doluteg ravir MERRY r 50 MG y 50 2020 50 MG Oral (Metro adriano Oral Tablet MG 12:00: Tablet [place] [Tivicay] Oral 00 AM [Tivicay] Medi cine Tivicay 50 Tablet EDT and MG Oral Infectious Tablet Disease) Fenofibrate Fenofi active [...] and Oral Tablet Tablet Infect ious Disease) Glipizide glipiZ aborted Glipizid e 10 [...] EDT and MG Oral Infectious Tablet Disease) Fluticasone Flutic active flutica sone MERRY Propionate asone 2020 propionate (M etropoli 50 MCG/ACT Propio 12:00: 0.05 [place] Nasal howard 00 AM MG/ACTUAT Medicine Suspension 50 EST Metered Dose a nd MCG/AC Nasal [place] Infect ious T Disease) Nasal Suspen paul abacavir Abacav active abacavir 3 00 MERRY 300 MG Oral ir 2020 MG Oral (Metr opoli Tablet Sulfat 12:00: Tablet [place] Abacavir e 300 00 AM Medicine Sulfate 300 MG EST and MG Oral Oral Infectious Tablet Tablet Disease) QC QC active QC MERRY Fluticasone Flutic 2019 Fluticasone ([facility] Propionate asone 12:00: Propionate [place] 50 MCG/ACT Propio 00 AM Medici ne Nasal hwoard EST and Suspension 50 Infectiou s MCG/AC [...] aborted {6 GRE ENWAY Z-Pk 250 max 2019 (Azithromyci (M etropoli MG Oral Z-Pk 12:00: [...] Metropoli Tablet 100 MG 12:00: Tablet christensen JASMIN lamiVUDine Oral 00 AM Medicine 100 MG Oral Tablet EDT and Tablet Infectious Disease) abacavir Abacav active abacavir 3 MERRY 300 MG Oral ir 2019 MG Oral (Metr opoli Tablet Sulfat 12:00: Tablet [place]ensen JASMIN Abacavir e 00 AM Medicine Sulfate 300MG EDT and 300MG Oral Oral Infectiou s Tablet Tablet Disease) Rosuvastati Rosuva active rosuvas tatin MERRY n calcium statin 2019 calcium 10 (M etropoli 10 MG Oral Calciu 12:00: MG Oral ta n [place] Tablet m 10MG 00 AM Tablet Medicine Rosuvastati Oral EDT and n Calcium Tablet Infectio us 10MG Oral Disease) Tablet pioglitazon Piogli complet piogli tazone MERRY e 30 MG tazone 2019 ed 30 MG Oral (Met ropoli Oral Tablet HCl 12:00: Tablet [place] Pioglitazon 30MG 00 AM Medicin e e HCl 30MG Oral EDT and Oral Tablet Tablet Infect ious Disease) Metoprolol Metopr aborted Metopro lol MERRY Tartrate 25 olol 2019 Tartrate 25 ( Metropoli MG Oral Tartra 12:00: MG Oral [place] Tablet te 00 AM Tablet Medicine Metoprolol 25MG EST and Tartrate Oral Infectious 25MG Oral Tablet Disease) Tablet Ofloxacin 3 Ofloxa aborted Ofloxa gibran 3 MERRY MG/ML gibran 2018 MG/ML ([facility] Ophthalmic 0.3% 12:00: Ophthalmic t an [place] Solution Ophtha 00 AM Solution Medi cine Ofloxacin lmic EDT and 0.3% Soluti Infectious Ophthalmic on Disease) Solution Rosuvastati Cresto aborted Rosuva statin MERRY n calcium r 10MG 2018 calcium 10 (M etropoli 10 MG Oral [...] and 145MG Oral Infectiou s Tablet Disease) Glipizide GlipiZ aborted Glipizid e 10 MERRY 10 MG Oral JORDAN 2017 MG Oral (Metro adriano Tablet 10MG 12:00: Tablet [place] GlipiZIDE Oral 00 AM Medicine 10MG Oral Tablet EDT and Tablet Infectious Disease) Metoprolol Metopr aborted Metopro lol MERRY Tartrate 25 olol 2014 Tartrate 25 ( Metropoli MG Oral Tartra 12:00: MG Oral christensen [place] Tablet te 25 00 AM Tablet Medicine Metoprolol MG OR EDT and Tartrate 25 TABS Infectio us MG OR TABS Disease) Insurance Providers Payer name Policy type / Policy ID Covered Covered Policy Plan Coverage type constitution party ID constitution party's Degroot Inform ation relationship to degroot BLUE CROSS [id number] SP [id number] SENIOR PLAN MEDICAID [id number] [place] D[place] [id number] SP [id number] COMPLETE MARGOT MEDICARE [id number] SP [id number] BLUE CROSS [id number] SP [id number] SENIOR PLAN EMPIRE BC/BS [id number] MEDICAID OF [id number] [place] [id number] 1 [id number] [place] Supplemental 0 Self [address] [place] [address] [facility] - United Individual 0 Self [address] [facility] [id number] SP [id number] HEALTHCARE (MEDICARE) AGEWELL OF [id number] SP [id number] [facility] MEDICAID [id number] SP [id number] Medicaid of Supplemental 0 Self 0 [place] Policy BC[place] of [place] 0 Self 0 [place] Policy [place] of Supplemental 0 Self 0 [place] Policy [place] 0 Self 0 [place] Policy BLUE CROSS O [id number] MEDIBLUE OP O [id number] A Medicaid of Supplemental 0 Self 0 [place] Policy BC[place] of [place] Individual 0 Self 0 [place] Policy BLUE CROSS [id number] SP [id number] SENIOR PLAN BLUE CROSS [id number] SP [id number] SENIOR PLAN BC HMO [id number] SP [id number] BCBS of [place] Group Policy 0 Self 0 [place] Medicare Part Medicare 0 Self 0 B of [place] Primary - [place] BC/BS Medicare Part Medicare 0 Self 0 [place] - [place] BC/BS BC INDEMNITY [id number] SP [id number] MEDICARE [id number] SP [id number] MEDICAID [id number] SP [id number] MEDICARE [id number] SP [id number] MEDICARE [id number] SP [id number] A Problems, Conditions, and Diagnoses Code Display Name Description Problem Type Effective Data Sour ce(s) Dates N18.3 Chronic kidney CHRONIC KIDNEY Problem 03/14/2020 [...] J ohn's (moderate) (MODERATE) EDT Medical, PC) E11.9 Type 2 diabetes TYPE 2 DIABETES Diagnosis 09/27/2019 [facility] mellitus without MELLITUS WITHOUT 11:18:00 AM M edical Center complications COMPLICATIONS EDT J06.9 Acute upper ACUTE UPPER Diagnosis 09/27/2019 [facility] respiratory RESPIRATORY 11:18:[address] infection, INFECTION, EDT unspecified UNSPECIFIED R05 Cough COUGH Diagnosis 09/27/2019 [facility] 11:18:00 AM Medical Cente r EDT Surgeries/Procedures Procedure Description Date Indications Data Source(s) [...] PC) Reported medical Reported medical history 02/13/2020 MERRY history - DM, HTN, - DM, HTN, HIV, CKD 12:00:00 ( [facility] HIV, CKD AM EDT Medicine and Infectious Disease) Surgical / procedural Surgical / procedural 02/13/2020 MERRY history - (R) history - (R) Carotid 12:00:00 ([facility] Carotid Endarterectomy AM EDT Medicine and Endarterectomy Infectious Disease) Clinical summary 01/28/2020 MERRY provided to patient 12:00:00 ([facility] [place] AM EDT - Medicine and 01/28/2020 Infectious 12:00:00 Disease) AM EDT continue current 01/28/2020 MERRY medication 12:00:00 ([facility] Y AM EDT - Medicine and 01/28/2020 Infectious 12:00:00 Disease) AM EDT Reported medical Reported medical history 12/27/2019 MERRY history - DM, HTN, - DM, HTN, HIV, CKD 12:00:00 ( [facility] HIV, CKD AM EDT Medicine and Infectious Disease) Surgical / procedural Surgical / procedural 12/27/2019 MERRY history - (R) history - (R) Carotid 12:00:00 ([facility] Carotid Endarterectomy AM EDT Medicine and Endarterectomy Infectious Disease) Clinical summary 12/27/2019 MERRY provided to patient 12:00:00 ([facility] [place] AM EDT - Medicine and 12/27/2019 Infectious 12:00:00 Disease) AM EDT continue current 12/27/2019 MERRY medication 12:00:00 ([facility] N AM EDT - Medicine and 12/27/2019 Infectious 12:00:00 Disease) AM EDT Reported medical Reported medical history 11/22/2019 MERRY history - DM, HTN, - DM, HTN, HIV, CKD 12:00:00 ( [facility] HIV, CKD AM EDT Medicine and Infectious Disease) Surgical / procedural Surgical / procedural 11/22/2019 MERRY history - (R) history - (R) Carotid 12:00:00 ([facility] Carotid Endarterectomy AM EDT Medicine and Endarterectomy Infectious Disease) Clinical summary 11/22/2019 MERRY provided to patient 12:00:[facility] [place] [facility] - Medicine and 11/22/2019 Infectious 12:00:00 Disease) AM EDT continue current 11/22/2019 MERRY medication 12:00:00 ([facility] EDT - Medicine and 11/22/2019 Infectious 12:00:00 Disease) AM EDT COLLECTION VENOUS Routine 11/22/2019 CARMINE BLOOD VENIPUNCTURE Venipunctfingerheel Stick 12:00:00 ([facility] EDT Medicine and Infectious Disease) Reported medical Reported medical history 09/14/2019 MERRY history - DM, HTN, - DM, HTN, HIV, CKD 12:00:00 ( [facility] HIV, CKD AM EDT Medicine and Infectious Disease) Surgical / procedural Surgical / procedural 09/14/2019 MERRY history - (R) history - (R) Carotid 12:00:00 ([facility] Carotid Endarterectomy AM EDT Medicine and Endarterectomy Infectious Disease) Clinical summary 09/14/2019 MERRY provided to patient 12:00:00 ([place] AM EDT - Medicine and 09/14/2019 Infectious 12:00:00 Disease) AM EDT continue current 09/14/2019 MERRY medication 12:00:00 ([facility] EDT - Medicine and 09/14/2019 Infectious 12:00:00 Disease) AM EDT Documentation of 08/03/2019 [facility] ([facility] current medications 12:00:00 Nadia's Daniela edical, (procedure) AM EST PC) Documentation of 08/03/2019 [facility] ([facility] current medications 12:00:00 Nadia's Daniela edical, (procedure) AM EST PC) Documentation of [...] - DM, HTN, HIV, CKD 12:00:00 ( [facility] HIV, CKD AM EDT Medicine and Infectious Disease) Surgical / procedural Surgical / procedural 02/22/2019 MERRY history - (R) history - (R) Carotid 12:00:00 ([facility] Carotid Endarterectomy AM EDT Medicine and Endarterectomy Infectious Disease) Reported medical Reported medical history 02/22/2019 MERRY history - DM, HTN, - DM, HTN, HIV, CKD 12:00:00 ( [facility] HIV, CKD AM EDT Medicine and Infectious Disease) Surgical / procedural Surgical / procedural 02/22/2019 MERRY history - (R) history - (R) Carotid 12:00:00 ([facility] Carotid Endarterectomy AM EDT Medicine and Endarterectomy Infectious Disease) Clinical summary 02/22/2019 MERRY provided to patient 12:00:00 ([facility] [place] AM EDT - Medicine and 02/22/2019 Infectious 12:00:00 Disease) AM EDT Education (procedure) 02/22/2019 [place] 12:00:00 ([facility] N [place] AM EDT - Medicine and 02/22/2019 Infectious 12:00:00 Disease) AM EDT continue current 02/22/2019 MERRY medication 12:00:00 ([facility] N Y AM EDT - Medicine and 02/22/2019 Infectious 12:00:00 Disease) AM EDT Results ID Date Data Source [id number] 04/11/2020 06:12:00 AM EDT [facility] Name Value Range Interpretation Description Data Sup porting Code Source(s) Document(s ) SARS [facility] coronavirus 2 RNA This lab was ordered by [facility] and reported by [facility]. ID Date Data Source [id number] 03/16/2020 12:00:00 AM EDT [facility] ([facility] Name Value Range Interpretation Code Description Data Supporting Source(s) Document(s ) PTH, Intact 11 pg/mL Below low normal [facility] ([facility], ) ID Date Data Source [id number] 03/16/2020 12:00:00 AM EDT [facility] ([facility]) Name Value Range Interpretation Code Description Data Supporting Source(s) Document(s ) Ferritin, 376 ng/mL Normal (applies to [facility] (St Serum non-numeric Nadia's results) Medical, PC) ID Date Data Source [id number] 03/16/2020 12:00:00 AM EDT [facility] ([facility], ) Name Value Range Interpretation Description Data Sup porting Code Source(s) Document(s ) Deprecated 3.1 mg/dL Normal (applies to [facility] (St Phosphorus non-numeric Nadia's [Mass/time] in results) Medical, PC) 24 hour Urine ID Date Data Source [id number] 03/16/2020 12:00:00 AM EDT [facility] ([facility]) Name Value Range Interpretation Description Data Sup porting Code Source(s) Document(s ) Vitamin D, 30.3 Normal (applies to [facility] (St 25-Hydroxy ng/mL non-numeric Nadia's results) Medical, ) ID Date Data Source [id number] 03/16/2020 12:00:00 AM EDT [facility] ([facility], ) Name Value Range Interpretation Code Description Data Supporting Source(s) Document(s ) Protein,To 20.9 mg/dL Normal (applies to [facility] (S t [place],Urine non-numeric Nadia's results) [facility], ) Creatinine 83.2 mg/dL Normal (applies to [facility] (S t , Urine non-numeric Nadia's results) [facility], ) Protein/Cr 251 mg/g Above high normal [facility] (St eat Ratio creat [facility]) ID Date Data Source [id number] 03/16/2020 12:00:00 AM EDT [facility] ([facility]) Name Value Range Interpretation Description Data Sup porting Code Source(s) Document(s ) Iron 333 ug/dL Normal (applies to [facility] (St Bind.Cap.(TIBC non-numeric Nadia's ) results) [facility], ) Iron 78 ug/dL Normal (applies to [facility] (St [Mass/volume] non-numeric Nadia's in Serum or results) [facility], ) Plasma UIBC 255 ug/dL Normal (applies to [facility] (St non-numeric Nadia's results) [facility], ) Iron 23 % Normal (applies to [facility] (St saturation non-numeric Nadia's [Mass results) [facility], ) Fraction] in Serum or Plasma ID Date Data Source [id number] 03/16/2020 12:00:00 AM EDT [facility] ([facility]) Name Value Range Interpretation Description Data Sup porting Code Source(s) Document(s ) WBC 0-5 Normal (applies [facility] (St to non-numeric Nadia's results) [facility], ) Epithelial None seen Normal (applies [facility] (St Cells (non to non-numeric Nadia's renal) results) [facility], ) RBC None seen Normal (applies [facility] (St to non-numeric Nadia's results) [facility], ) Casts [#/area] Present Abnormal (applies [facility] (St in Urine to non-numeric Nadia's sediment by results) [facility], ) Automated count Crystal Type Calcium Normal (applies [facility] (St Oxalate to non-numeric Nadia's results) [facility], ) Cast Type Hyaline Normal (applies [facility] (St casts to non-numeric Nadia's results) [facility], ) Crystals Present Abnormal (applies [facility] (St [#/area] in to non-numeric Nadia's Body fluid by results) Medical, PC) Light microscopy Mucus Threads Present Normal (applies [facility]GEN (St to non-numeric Nadia's results) Medical, PC) Bacteria None seen Normal (applies [facility] (St [Presence] in to non-numeric Nadia's Prostatic results) Medical, PC) fluid by Light microscopy ID Date Data Source [id number] 03/16/2020 12:00:00 AM EDT [facility] ([facility] [...] (St to non-numeric Nadia's results) Medical, PC) Ketones Negative Normal (applies [facility] (St [Presence] in to non-numeric Nadia's Blood by Tablet results) Medical, PC) Bilirubin Negative Normal (applies [facility] (St [Presence] in to non-numeric Nadia's Peritoneal fluid results) Medical, PC) Nitrite, Urine Negative Normal (applies MEDGEN (S t to non-numeric Nadia's results) Medical, PC) Urobilinogen,Elizabet 0.2 mg/dL Normal (applies MEDGEN (St i-Qn to non-numeric Nadia's results) Medical, PC) Microscopic Normal (applies [facility] (St Examination to non-numeric Nadia's results) Medical, PC) Microscopic See below: Normal (applies [facility] (St Examination to non-numeric Nadia's results) Medical, ) ID Date Data Source [id number] 03/16/2020 12:00:00 AM EDT [facility] ([facility], ) Name Value Range Interpretation Description Data [...] Below low normal MEDGE N ([facility] [address], ) BUN/Creatinine 11 Normal (applies MEDGEN (S t Ratio to non-numeric Nadia's results) Medical, ) eGFR If NonAfricn 28 Below low normal MEDGE N (St Am mL/min/1 [facility], ) Potassium 4.6 Normal (applies [facility] (St [...] Nadia's Serum or Plasma results) Medical, ) Microalbumin 4.5 g/dL Normal (applies [facility] (St [Mass/time] in to non-numeric Nadia's Urine collected for results) Medical, unspecified PC) duration A/G Ratio 1.5 Normal (applies [facility]GEN (St to non-numeric Nadia's results) Medical, ) Globulin, Total 3.1 g/dL Normal (applies MEDGEN ( St to non-numeric Nadia's results) [facility], ) Bilirubin.total 0.5 Normal (applies MEDGEN ( St [Mass/volume] in mg/dL to non-numeric Nadia's Serum or Plasma results) [facility], ) Aspartate 24 IU/L Normal (applies MEDGEN (St aminotransferase to non-numeric Nadia's [Enzymatic results) Medical, activity/volume] in ) Serum or Plasma Alkaline 49 IU/L Normal (applies [facility]GEN (St phosphatase to non-numeric Nadia's [Enzymatic results) Medical, activity/volume] in ) Serum, Plasma or Blood Alanine 23 IU/L Normal (applies [facility] (St aminotransferase to non-numeric Nadia's [Enzymatic results) Medical, activity/volume] in ) Serum or Plasma ID Date Data Source [id number] 03/16/2020 12:00:00 AM EDT [facility] ([facility] ) Name Value Range Interpretation Description Data Sup porting Code Source(s) Document(s ) Leukocytes 7.8 Normal (applies [facility] (St [#/volume] in x10E3/uL to non-numeric Nadia's Blood by results) Medical, ) Automated count Erythrocytes 4.20 Normal (applies [facility]GEN (St [#/volume] in x10E6/uL to non-numeric Nadia's Blood by results) Medical, ) Automated count Hemoglobin 13.5 Normal (applies [facility] (St [Mass/volume] in g/dL to non-numeric Nadia's Blood results) [facility], ) Hematocrit 40.3 % Normal (applies [facility]GEN (St [Volume to non-numeric Nadia's Fraction] of results) [facility], ) Blood by Automated count MCV 96 fL Normal (applies [facility]GEN (St to non-numeric Nadia's results) [facility], ) MCHC 33.5 Normal (applies [facility]GEN (St g/dL to non-numeric Nadia's results) [facility], ) MCH 32.1 pg Normal (applies [facility]GEN (St to non-numeric Nadia's results) [facility], ) RDW 11.8 % Normal (applies MEDGEN (St to non-numeric Nadia's results) [facility], ) Neutrophils [#] 50 % Normal (applies MEDGEN ( St in Body fluid by to non-numeric Nadia's Manual count results) [facility], ) Platelets 210 Normal (applies [facility]GEN (St [#/area] in x10E3/uL to non-numeric Nadia's Blood by results) [facility], ) Microscopy high power field Lymphs 37 % Normal (applies MEDGEN (St to non-numeric Nadia's results) [facility], ) Monocytes 8 % Normal (applies MEDGEN (St [#/volume] in to non-numeric Nadia's Cord blood results) [facility], ) Eos 5 % Normal (applies MEDGEN (St to non-numeric Nadia's results) [facility], ) Basos 0 % Normal (applies MEDGEN (St to non-numeric Nadia's results) [facility], ) Neutrophils 3.9 Normal (applies MEDGEN (St (Absolute) x10E3/uL to non-numeric Nadia's results) [facility], ) Monocytes(Absolu 0.6 Normal (applies MEDGEN (St te) x10E3/uL to non-numeric Nadia's results) [facility], ) Lymphs 2.9 Normal (applies MEDGEN (St (Absolute) x10E3/uL to non-numeric Nadia's results) [facility], ) Immature 0 % Normal (applies MEDGEN (St Granulocytes to non-numeric Nadia's results) [facility], ) Baso (Absolute) 0.0 Normal (applies MEDGEN ( St x10E3/uL to non-numeric Nadia's results) [facility], ) Eos (Absolute) 0.4 Normal (applies MEDGEN (S t x10E3/uL to non-numeric Nadia's results) [facility], ) Immature Grans 0.0 Normal (applies MEDGEN (S t (Abs) x10E3/uL to non-numeric Nadia's results) [facility], ) ID Date Data Source [id number] 03/16/2020 12:00:00 AM EDT [facility] ([facility], ) Name Value Range Interpretation Code Description Data Supporting Source(s) Document(s ) PTH, Intact 11 pg/mL Below low normal [facility] ([facility], ) ID Date Data Source [id number] 03/16/2020 12:00:00 AM EDT [facility] ([facility], ) Name Value Range Interpretation Code Description Data Supporting Source(s) Document(s ) Ferritin, 376 ng/mL Normal (applies to MEDGEN (St Serum non-numeric Nadia's results) [facility]) ID Date Data Source [id number] 03/16/2020 12:00:00 AM EDT [facility] ([facility]) Name Value Range Interpretation Description Data Sup porting Code Source(s) Document(s ) Deprecated 3.1 mg/dL Normal (applies to MEDGEN (St Phosphorus non-numeric Nadia's [Mass/time] in results) [facility], ) 24 hour Urine ID Date Data Source [id number] 03/16/2020 12:00:00 AM EDT [facility] ([facility]) Name Value Range Interpretation Description Data Sup porting Code Source(s) Document(s ) Vitamin D, 30.3 Normal (applies to MEDGEN (St 25-Hydroxy ng/mL non-numeric Nadia's results) [facility]) ID Date Data Source [id number] 03/16/2020 12:00:00 AM EDT [facility] ([facility]) Name Value Range Interpretation Code Description Data Supporting Source(s) Document(s ) Creatinine 83.2 mg/dL Normal (applies to MEDGEN (S t , Urine non-numeric Nadia's results) [facility]) Protein,To 20.9 mg/dL Normal (applies to MEDGEN (S t rakesh,Urine non-numeric Nadia's results) [facility]) Protein/Cr 251 mg/g Above high normal [facility] (St eat Ratio creat [facility]) ID Date Data Source [id number] 03/16/2020 12:00:00 AM EDT [facility] ( [facility]) Name Value Range Interpretation Description Data Sup porting Code Source(s) Document(s ) Iron 333 ug/dL Normal (applies to MEDGEN (St Bind.Cap.(TIBC non-numeric Nadia's ) results) [facility]) UIBC 255 ug/dL Normal (applies to MEDGEN (St non-numeric Nadia's results) [facility]) Iron 23 % Normal (applies to MEDGEN (St saturation non-numeric Nadia's [Mass results) [facility]) Fraction] in Serum or Plasma Iron 78 ug/dL Normal (applies to MEDGEN (St [Mass/volume] non-numeric Nadia's in Serum or results) Medical, PC) Plasma ID Date Data Source [id number] 03/16/2020 12:00:00 AM EDT [facility] ([facility], ) Name Value Range Interpretation Description Data Sup porting Code Source(s) Document(s ) WBC 0-5 Normal (applies MEDGEN (St to non-numeric Nadia's results) [facility]) RBC None seen Normal (applies MEDGEN (St to non-numeric Nadia's results) [facility]) Epithelial None seen Normal (applies MEDGEN (St Cells (non to non-numeric Nadia's renal) results) [facility]) Casts [#/area] Present Abnormal (applies MEDGEN (St in Urine to non-numeric Nadia's sediment by results) [facility], [facility]) Automated count Cast Type Hyaline Normal (applies MEDGEN (St casts to non-numeric Nadia's results) [facility]) Crystal Type Calcium Normal (applies MEDGEN (St Oxalate to non-numeric Nadia's results) [facility]) Crystals Present Abnormal (applies MEDGEN (St [#/area] in to non-numeric Nadia's Body fluid by results) [facility], [facility]) Light microscopy Mucus Threads Present Normal (applies MEDGEN (St to non-numeric Nadia's results) [facility]) Bacteria None seen Normal (applies MEDGEN (St [Presence] in to non-numeric Nadia's Prostatic results) [facility]) fluid by Light microscopy ID Date Data Source [id number] 03/16/2020 12:00:00 AM EDT [facility] ([facility] ) Name Value Range Interpretation Description Data [...] Nadia's Blood by Tablet results) Medical, ) Occult Blood Negative Normal (applies MEDGEN (St to non-numeric Nadia's results) Medical, ) Glucose Abnormal MEDGEN (St [Mass/volume] in (applies to Nadia's Urine collected non-numeric Medical, for unspecified results) ) duration Urobilinogen,Elizabet 0.2 mg/dL Normal (applies MEDGEN (St i-Qn to non-numeric Nadia's results) Medical, ) Nitrite, Urine Negative Normal (applies MEDGEN (S t to non-numeric Nadia's results) Medical, ) Bilirubin Negative Normal (applies MEDGEN (St [Presence] in to non-numeric Nadia's Peritoneal fluid results) Medical, ) Microscopic Normal (applies MEDGEN (St Examination to non-numeric Nadia's results) Medical, ) Microscopic See below: Normal (applies MEDGEN (St Examination to non-numeric Nadia's results) [facility], ) ID Date Data Source [id number] 03/16/2020 12:00:00 AM EDT [facility] ([facility], ) Name Value Range Interpretation Description Data Sup porting Code Source(s) Document(s ) Glucose 273 Above high MEDGEN (St [Mass/volume] in mg/dL normal Nadia's Urine collected for Medical, unspecified PC) duration Creatinine 2.10 Above high MEDGEN (St [Interpretation] in mg/dL normal Nadia's Urine [facility], ) Urea nitrogen 23 mg/dL Normal (applies MEDGEN (St [Mass/volume] in to non-numeric Nadia's Serum or Plasma results) Medical, ) eGFR If Africn Am 33 Below low normal MEDGE N (St mL/min/1 Nadia's .73 [facility], ) eGFR If NonAfricn 28 Below low normal MEDGE N (St Am mL/min/1 [facility]'s .73 [facility], ) Sodium 137 Normal (applies MEDGEN (St [Moles/volume] in mmol/L to non-numeric Nadia's Serum or Plasma results) Medical, ) BUN/Creatinine 11 Normal (applies MEDGEN (S t Ratio to non-numeric Nadia's results) [facility], [facility]) Chloride 97 Normal (applies MEDGEN (St [Moles/volume] in mmol/L to non-numeric Nadia's Serum or Plasma results) [facility], [facility]) Carbon dioxide, 25 Normal (applies MEDGEN ( St total mmol/L to non-numeric Nadia's [Moles/volume] in results) Medical, Serum or Plasma PC) Potassium 4.6 Normal (applies MEDGEN (St [Mass/volume] in mmol/L to non-numeric Nadia's Blood results) Medical, PC) Protein 7.6 g/dL Normal [...] Nadia's Serum or Plasma results) Medical, ) Alkaline 49 IU/L Normal (applies MEDGEN (St phosphatase to non-numeric Nadia's [Enzymatic results) Medical, activity/volume] in PC) Serum, Plasma or Blood Alanine 23 IU/L Normal (applies MEDGEN (St aminotransferase to non-numeric Nadia's [Enzymatic results) Medical, activity/volume] in PC) Serum or Plasma Aspartate 24 IU/L Normal (applies MEDGEN (St aminotransferase to non-numeric Nadia's [Enzymatic results) Medical, activity/volume] in PC) Serum or Plasma ID Date Data Source [id number] 03/16/2020 12:00:00 AM EDT [facility] ([facility], ) Name Value Range Interpretation Description Data Sup porting Code Source(s) Document(s ) Leukocytes 7.8 Normal (applies MEDGEN (St [#/volume] in x10E3/uL to non-numeric Nadia's Blood by results) [facility], ) Automated count Erythrocytes 4.20 Normal (applies MEDGEN (St [#/volume] in x10E6/uL to non-numeric Nadia's Blood by results) [facility], ) Automated count Hemoglobin 13.5 Normal (applies MEDGEN (St [Mass/volume] in g/dL to non-numeric Nadia's Blood results) [facility], ) Hematocrit 40.3 % Normal (applies MEDGEN (St [Volume to non-numeric Nadia's Fraction] of results) [facility], ) Blood by Automated count MCHC 33.5 Normal (applies MEDGEN (St g/dL to non-numeric Nadia's results) [facility], ) MCH 32.1 pg Normal (applies MEDGEN (St to non-numeric Nadia's results) [facility], ) MCV 96 fL Normal (applies MEDGEN (St to non-numeric Nadia's results) [facility], ) RDW 11.8 % Normal (applies MEDGEN (St to non-numeric Nadia's results) [facility], ) Platelets 210 Normal (applies MEDGEN (St [#/area] in x10E3/uL to non-numeric Nadia's Blood by results) [facility], ) Microscopy high power field Neutrophils [#] 50 % Normal (applies MEDGEN ( St in Body fluid by to non-numeric Nadia's Manual count results) [facility], ) Lymphs 37 % Normal (applies MEDGEN (St to non-numeric Nadia's results) [facility], ) Monocytes 8 % Normal (applies MEDGEN (St [#/volume] in to non-numeric Nadia's Cord blood results) [facility], ) Eos 5 % Normal (applies MEDGEN (St to non-numeric Nadia's results) [facility], ) Basos 0 % Normal (applies MEDGEN (St to non-numeric Nadia's results) [facility], ) Monocytes(Absolu 0.6 Normal (applies MEDGEN (St te) x10E3/uL to non-numeric Nadia's results) [facility], ) Neutrophils 3.9 Normal (applies MEDGEN (St (Absolute) x10E3/uL to non-numeric Nadia's results) [facility], ) Lymphs 2.9 Normal (applies MEDGEN (St (Absolute) x10E3/uL to non-numeric Nadia's results) [facility], ) Eos (Absolute) 0.4 Normal (applies MEDGEN (S t x10E3/uL to non-numeric Nadia's results) Medical, ) Baso (Absolute) 0.0 Normal (applies MEDGEN ( St x10E3/uL to non-numeric Nadia's results) Medical, ) Immature 0 % Normal (applies MEDGEN (St Granulocytes to non-numeric Nadia's results) Medical, ) Immature Grans 0.0 Normal (applies MEDGEN (S t (Abs) x10E3/uL to non-numeric Nadia's results) Medical, ) ID Date Data Source [id number] 02/01/2020 02:18:00 PM EDT [facility] Name Value Range Interpretation Description Data Sup porting Code Source(s) Document(s ) SARS [facility] coronavirus 2 RNA This lab was ordered by [facility] and reported by [facility]. ID Date Data Source [id number] 01/29/2020 09:27:00 AM EDT [facility] ([facility]) Name Value Range Interpretation Description Data Sup porting Code Source(s) Document(s ) HIV 1 RNA <20 Above high HIV 1 RNA, QN MERRY [#/volume] Detected normal PCR ([facility] (viral load) in copies/mL n [place] Serum or Plasma Medicine and by Probe and Infectious target Disease) amplification method HIV 1 RNA [Log <1.30 Above high HIV 1 RNA, QN MERRY #/volume] Detected normal PCR ([facility] (viral load) in log_copies n [place] Plasma by Probe /mL Medicine and and target Infectious amplification Disease) method Note: HIV-1 RNA was detected be low 20 copies/mL. Viral nucleic acid detected below this level cannot be colt tified by the assay. The test was performed using Real Time Polym erase Chain Reaction. Reportable Range: 20 copies/mL to 10,000 ,000 copies/mL (1.30-7.00 Log copies/mL). ID Date Data Source [id number] 01/29/2020 09:27:00 AM EDT [facility] ([facility]) Name Value Range Interpretation Description Data Sup porting Code Source(s) Document(s ) CD3 cells/100 75 Percent Normal (applies % CD3 MERRY cells in Blood to non-numeric ([facility] results) n [place] Medicine and Infectious Disease) CD19 cells 260 Normal (applies ABSOLUTE CD19 MERRY [#/volume] in Cells/mcL to non-numeric CELLS ([facility] a Blood results) [facility] Medicine and Infectious Disease) CD3-CD16+CD56+ 17 Percent Normal (applies % CD16+CD56+ [address] (Natural to non-numeric ([facility] killer) results) n [place] cells/100 Medicine and cells in Blood Infectious Disease) CD19 cells/100 7 Percent Normal (applies % CD19 MERRY cells in Blood to non-numeric ([facility] results) [facility] Medicine and Infectious Disease) CD3 cells 2734 Normal (applies ABSOLUTE CD3 MERRY [#/volume] in Cells/mcL to non-numeric CELLS ([facility] a Blood results) n [place] Medicine and Infectious Disease) CD3+CD4+ (T4 0.22 Ratio Below low normal CD4/CD8 RATIO [address] helper) ([facility] cells/CD3+CD8+ n [place] (T8 suppressor Medicine and cells) cells Infectious [# Ratio] in Disease) Blood Lymphocytes 3650 Normal (applies ABSOLUTE MERRY [#/volume] in Cells/mcL to non-numeric LYMPHOCYTES ([facility] Blood by results) n [place] Automated Medicine and count Infectious Disease) Note: The Lymphocyte Subset ref erence ranges were implemented on April 08, 2016. CD3+CD4+ (T4 13 Percent Below low %CD4 MERRY helper) cells/100 normal ([facility] [place] cells in Blood Medicine and Infectious Disease) CD3-CD16+CD56+ 630 Cells/mcL Normal ABSOLUTE MERRY (Natural killer) (applies to CD16+CD56+ ([facility] [place] cells [#/volume] non-numeric CELLS Medicine an d in Blood results) Infectious Disease) CD3+CD8+ (T8 2217 Cells/mcL Above high ABSOLUTE CD8 MERRY suppressor cells) normal CELLS ([facility] [place] cells [#/volume] Medicine and in Blood Infectious Disease) Cells.CD3+CD4+CD8+ 18 Cells/mcL Normal ABS MERRY (Double positive) (applies to CD3+CD4+CD8+ ([place] [#/volume] in non-numeric CELLS Medicine and Blood results) Infectious Disease) Cells.CD3+CD4+CD8+ 0 Percent Normal % CD3+CD4+CD8+ [place] A[place] (Double (applies to ([place] [place] positive)/100 non-numeric Medicine and cells in Blood results) Infectious Dise ase) CD3+CD4+ (T4 479 Cells/mcL Below low ABSOLUTE CD4 MERRY helper) cells normal CELLS ([facility] [#/volume] in Medicine and Blood Infectious Disease) CD3+CD8+ (T8 61 Percent Above high %CD8 MERRY suppressor cells) normal ([facility] cells/100 cells in Medicine an d Blood Infectious Disease) % CD3+CD4-CD8- 0 Percent Normal % CD3+CD4-CD8- MERRY (applies to ([facility] non-numeric Medicine and results) Infectious Disease) ABS CD3+CD4-CD8- 11 Cells/mcL Normal ABS MERRY CELLS (applies to CD3+CD4-CD8- ([facility] non-numeric CELLS Medicine and results) Infectious Disease) % 6 Percent Normal % MERRY CD3+/(CD56+CD16+) (applies to CD3+/(CD56+CD16 ([facility] non-numeric +) Medicine and results) Infectious Disease) ABS 232 Cells/mcL Normal ABS MERRY CD3+/(CD56+CD16+) (applies to CD3+/(CD56+CD16 ([facility] non-numeric +) Medicine and results) Infectious Disease) ID Date Data Source [id number] 01/29/2020 09:27:00 AM EDT M[facility] ([facility]) Name Value Range Interpretation Description Data Sup porting Code Source(s) Document(s ) Hemoglobin 7.7 Above high normal HEMOGLOBIN A1C GRE[place] AY A1c/Hemoglobi %_of_tot ([facility] n.total in al_Hgb [place] Medicine Blood and Infectious Disease) Note: For [...] f or children. ID Date Data Source [id number] 01/29/2020 09:27:00 AM EDT MERRY ([facility]) Name Value Range Interpretation Description Data Source(s ) Supporting Code Document(s ) Cell See Note Normal (applies to DIFFERENTIAL MERRY Fractions/ non-numeric ([facility] results) [place] Medicine al and Infectious [Interpret Disease) ation] in Blood Note: An instrument differentia l was performed. Leukocytes 7.9 Thousand/uL Normal (applies WBC [place] [#/volume] in to non-numeric ([facility] Blood by Automated results) Medicine an d count Infectious Disease) Hematocrit [Volume 39.4 % Normal (applies HEMATOCRIT GREE NWAY Fraction] of Blood to non-numeric ([facility] by Automated count results) Medicine an d Infectious Disease) Monocytes/100 7.9 % Normal (applies MONOCYTES,% MERRY leukocytes in to non-numeric ([facility] Blood by Automated results) Medicine an d count Infectious Disease) Eosinophils/100 5.0 % Normal (applies EOSINOPHILS,% GREE NWAY leukocytes in to non-numeric ([facility] Blood by Automated results) Medicine an d count Infectious Disease) Basophils 47 cells/uL Normal (applies BASOPHILS,ABSO [place] Y [#/volume] in to non-numeric LUTE ([facility] Blood by Automated results) Medicine an d count Infectious Disease) Eosinophils 395 cells/uL Normal (applies EOSINOPHILS,AB GREE NWAY [#/volume] in to non-numeric SOLUTE ([facility] Blood by Automated results) Medicine an d count Infectious Disease) Basophils/100 0.6 % Normal (applies BASOPHILS,% MERRY leukocytes in to non-numeric ([facility] Blood by Automated results) Medicine an d count Infectious Disease) Hemoglobin 13.3 g/dL Normal (applies HEMOGLOBIN MERRY [Mass/volume] in to non-numeric ([facility] Blood results) Medicine and Infectious Disease) Lymphocytes 3239 cells/uL Normal (applies LYMPHOCYTES,AB GRE ENWAY [#/volume] in to non-numeric SOLUTE ([facility] Blood by Automated results) Medicine an d count Infectious Disease) Lymphocytes/100 41.0 % Normal (applies TOTAL MERRY leukocytes in to non-numeric LYMPHOCYTES,% ([facility] [place] Blood by Automated results) Medicine an d count Infectious Disease) Monocytes 624 cells/uL Normal (applies MONOCYTES,ABSO GREENW AY [#/volume] in to non-numeric LUTE ([facility] Blood by Automated results) Medicine an d count Infectious Disease) Neutrophils/100 45.5 % Normal (applies TOTAL MERRY leukocytes in to non-numeric NEUTROPHILS,% ([facility] [place] Blood by Automated results) Medicine an d count Infectious Disease) Platelets 186 Thousand/uL Normal (applies PLATELET COUNT GRE ENWAY [#/volume] in to non-numeric ([facility] Blood by Automated results) Medicine an d count Infectious Disease) Neutrophils 3595 cells/uL Normal (applies NEUTROPHILS,AB GRE ENWAY [#/volume] in to non-numeric SOLUTE ([facility] Blood by Automated results) Medicine an d count Infectious Disease) Platelet mean 10.4 fL Normal (applies MPV MERRY volume [Entitic to non-numeric ([facility] volume] in Blood results) Medicine and by Sadaf Infectious Disease) Erythrocyte mean 33.1 pg Above high MCH MERRY corpuscular normal ([facility] hemoglobin Medicine and [Entitic mass] by Infectious Automated count Disease) Erythrocyte mean 98.0 fL Normal (applies MCV [place] corpuscular volume to non-numeric ([facility] [Entitic volume] results) Medicine and by Automated count Infectious Disease) Erythrocyte 12.4 % Normal (applies RDW MERRY distribution width to non-numeric ([facility] [Ratio] by results) Medicine and Automated count Infectious Disease) Erythrocyte mean 33.8 g/dL Normal (applies MCHC [place] Y corpuscular to non-numeric ([facility] hemoglobin results) Medicine and concentration Infectious [Mass/volume] by Disease) Automated count Erythrocytes 4.02 Million/uL Below low normal RBC GREE NWAY [#/volume] in ([facility] Blood by Automated Medicine an d count Infectious Disease) ID Date Data Source [id number] 01/29/2020 09:27:00 AM EDT MERRY ([facility]) Name Value Range Interpretation Description Data Sup porting Code Source(s) Document(s ) Alanine 19 U/L Normal (applies ALT MERRY aminotransferase to non-numeric ([facility] [Enzymatic results) [facility] activity/volume] Medicine and in Serum or Plasma Infectious Disease) Albumin 4.0 Normal (applies ALBUMIN MERRY [Mass/volume] in g/dL to non-numeric ([facility] Serum or Plasma results) [facility] Medicine and Infectious Disease) Aspartate 20 U/L Normal (applies AST MERRY aminotransferase to non-numeric ([facility] [Enzymatic results) n [place] activity/volume] Medicine and in Serum or Plasma Infectious Disease) Albumin/Globulin 1.3 Normal (applies ALBUMIN/GLOBU GRE ENWAY [Mass Ratio] in (calc) to non-numeric KURTIS RATIO ([facility] Serum or Plasma results) [facility] Medicine and Infectious Disease) Carbon dioxide, 30 Normal (applies CARBON MERRY total mmol/L to non-numeric DIOXIDE ([facility] [Moles/volume] in results) [facility] Serum or Plasma Medicine and Infectious Disease) Calcium 10.0 Normal (applies CALCIUM MERRY [Mass/volume] in mg/dL to non-numeric ([facility] Serum or Plasma results) [facility] Medicine and Infectious Disease) Bilirubin.total 0.4 Normal (applies BILIRUBIN,TOT GREE NWAY [Mass/volume] in mg/dL to non-numeric [place] ([facility] Serum or Plasma results) [facility] Medicine and Infectious Disease) Chloride 100 Normal (applies CHLORIDE MERRY [Moles/volume] in mmol/L to non-numeric ([facility] Serum or Plasma results) [facility] Medicine and Infectious Disease) Glomerular 33 Below low normal EGFR NON AFR MERRY filtration mL/min/ NICARAGUAN ([facility] rate/1.73 sq 1.73m2 n [place] M.predicted Medicine and [Volume Rate/Area] Infectious in Serum or Plasma Disease) by Creatinine-based formula (MDRD) Globulin 3.2 Normal (applies GLOBULIN MERRY [Mass/volume] in g/dL_(c to non-numeric ([facility] Serum by alc) results) [facility] calculation Medicine and Infectious Disease) Creatinine 1.87 Above high CREATININE MERRY [Mass/volume] in mg/dL normal ([facility] Serum or Plasma [facility] Medicine and Infectious Disease) Note: The upper reference limit for Creatinine is approximately 13% higher for people identified as - Mongolian. Sodium 139 mmol/L Normal (applies SODIUM MERRY [Moles/volume] in to non-numeric ([place] [place] Serum or Plasma results) Medicine and Infectious Disease) Protein 7.2 g/dL Normal (applies PROTEIN, TOTAL MERRY [Mass/volume] in to non-numeric ([facility] [place] Serum or Plasma results) Medicine and Infectious Disease) Glomerular 38 Below low normal EGFR MERRY filtration rate/1.73 mL/min/1.73m [place]AN ([place] sq M predicted among 2 Medicine and blacks [Volume Infectious Rate/Area] in Serum Disease) or Plasma by Creatinine-based formula (MDRD) Potassium 4.4 mmol/L Normal (applies POTASSIUM MERRY [Moles/volume] in to non-numeric ([facility] or [facility] results) Medicine and Infectious Disease) Urea 12 (calc) Normal (applies BUN/CREATININE MERRY nitrogen/Creatinine to non-numeric RATIO ([facility] [[facility]] in results) Medicine and Serum or Plasma Infectious Disease) Fasting glucose 205 mg/dL Above high normal GLUCOSE,FASTIN G REENWAY [Mass/volume] in G ([facility] Serum or Plasma Medicine and Infectious Disease) Note: For someone without know n diabetes, a glucose value >125 mg/dL indicates that they may have diabe odalis and this should be confirmed with a follow-up test. Urea nitrogen 23 mg/dL Normal (applies UREA NITROGEN GREENW AY [Mass/volume] in to non-numeric ([facility] Serum or Plasma results) Medicine and Infectious Disease) Alkaline 63 U/L Normal (applies ALKALINE MERRY phosphatase to non-numeric PHOSPHATASE ([facility] [place] [Enzymatic results) Medicine and activity/volume] in Infectious Disease) Serum or Plasma ID Date Data Source [id number] 12/16/2019 09:00:00 AM EDT [facility] Name Value Range Interpretation Description Data Sup porting Code Source(s) Document(s ) SARS [facility] CORONAVIRUS 2 RNA This lab was ordered by [facility] and reported by [facility]. ID Date Data Source [id number] 12/13/2019 04:00:00 PM EDT [facility] Name Value Range Interpretation Description Data Sup porting Code Source(s) Document(s ) SARS [facility] CORONAVIRUS 2 RNA This lab was ordered by [facility] and reported by [facility]. ID Date Data Source [id number] 11/22/2019 04:07:00 PM EDT [facility] Name Value Range Interpretation Description Data Sup porting Code Source(s) Document(s ) HIV 1 RNA 38 Above high normal HIV 1 RNA, QN MERRY [#/volume] copies/m PCR ([facility] (viral load) in L n [place] Serum or Plasma Medicine and by Probe and Infectious target Disease) amplification method HIV 1 RNA [Log 1.58 Above high normal HIV 1 RNA, KristinaN MAJOR RAMIREZ #/volume] (viral log_copi PCR ([facility] load) in Plasma es/mL n [place] by Probe and Medicine and target Infectious amplification Disease) method Note: The test was performed u sing Real Time Polymerase Chain Reaction. Reportable Range: 20 c opies/mL to 10,000,000 copies/mL (1.30-7.00 Log copies/mL). ID Date Data Source [id number] 11/22/2019 04:07:00 PM EDT MERRY ([facility] Medicine and Infectious Disease) Name Value Range Interpretation Description Data Sup porting Code Source(s) Document(s ) Hemoglobin 6.0 Above high normal HEMOGLOBIN A1C GRE[place] AY A1c/Hemoglobi %_of_tot ([facility] n.total in al_Hgb [place] Medicine Blood and Infectious Disease) Note: For [...] diabetes in children. ID Date Data Source [id number] 10/31/2019 12:00:00 AM EDT [facility] Name Value Range Interpretation Code Description Data Lo rce(s) Supporting Document(s ) 2019-nCoV [place]SDOH RNA XXX JACQUI+probe- Imp This lab was ordered by [facility] and reported by [employer] ID Date Data Source [id number] 09/27/2019 12:30:00 PM EDT [facility] Name Value Range Interpretation Code Description Data Lo rce(s) Supporting Document(s ) RESULT [facility] This lab was ordered by NAOMI WHITE and reported by [facility]. ID Date Data Source [id number] 09/08/2019 08:42:00 AM EST CARMINE ([facility] Medicine and Infectious Disease) Name Value Range Interpretation Description Data Sup porting Code Source(s) Document(s ) HIV 1 RNA 26 Above high normal HIV 1 RNA, QN MERRY [#/volume] copies/m PCR ([facility] (viral load) in L [facility] Serum or Plasma Medicine and by Probe and Infectious target Disease) amplification method HIV 1 RNA [Log 1.41 Above high normal HIV 1 RNA, QN GRE ENWAY #/volume] (viral log_copi PCR ([facility] load) in Plasma es/mL [facility] by Probe and Medicine and target Infectious amplification Disease) method Note: The test was performed u sing Real Time Polymerase Chain Reaction. Reportable Range: 20 c opies/mL to 10,000,000 copies/mL (1.30-7.00 Log copies/mL). ID Date Data Source [id number] 09/08/2019 08:42:00 AM EST MERRY ([facility] Medicine and Infectious Disease) Name Value Range Interpretation Description Data Sup porting Code Source(s) Document(s ) CD3+CD4+ (T4 15 Percent Below low normal % CD4 MERRY helper) ([facility] cells/100 [facility] cells in Blood Medicine and Infectious Disease) Lymphocytes 2626 Normal (applies ABSOLUTE MERRY [#/volume] in Cells/mcL to non-numeric LYMPHOCYTES ([facility] lupe Blood by results) [facility] Automated Medicine and count Infectious Disease) CD3+CD4+ (T4 402 Below low normal ABSOLUTE CD4 [place] Y helper) cells Cells/mcL CELLS ([facility] [#/volume] in [facility] Blood Medicine and Infectious Disease) CD3+CD8+ (T8 1582 Above high normal ABSOLUTE CD8 [place] AY suppressor Cells/mcL CELLS ([facility] cells) cells [facility] [#/volume] in Medicine and Blood Infectious Disease) CD3+CD8+ (T8 60 Percent Above high normal % CD8 MERRY suppressor ([facility] cells) [facility] cells/100 Medicine and cells in Blood Infectious Disease) CD3+CD4+ (T4 0.25 Ratio Below low normal CD4/CD8 [address] helper) ([facility] cells/CD3+CD8+ [facility] (T8 suppressor Medicine and cells) cells Infectious [# Ratio] in Disease) Blood ID Date Data Source [id number] 09/08/2019 08:42:00 AM EST MERRY ([facility] Medicine and Infectious Disease) Name Value Range Interpretation Description Data Sup porting Code Source(s) Document(s ) Hemoglobin 6.1 Above high normal HEMOGLOBIN A1C [place] AY A1c/Hemoglobi %_of_tot ([facility] n.total in al_b [place] Medicine Blood and Infectious Disease) Note: For [...] diabetes in children. ID Date Data Source [id number] 06/10/2019 08:44:00 AM Omniata ([facility] Medicine and Infectious Disease) Name Value Range Interpretation Description Data Sup porting Code Source(s) Document(s ) HIV 1 RNA 31 Above high normal HIV 1 RNA, [facility] [#/volume] copies/m PCR ([facility] (viral load) in [facility] Serum or Plasma Medicine and by Probe and Infectious target Disease) amplification method HIV 1 RNA [Log 1.49 Above high normal HIV 1 RNA, [facility] #/volume] (viral log_copi PCR ([facility] load) in Plasma es/mL [facility] by Probe and Medicine and target Infectious amplification Disease) method Note: The test was performed u sing Real Time Polymerase Chain Reaction. Reportable Range: 20 c opies/mL to 10,000,000 copies/mL (1.30-7.00 Log copies/mL). Duplicate report will be sent to: CHUCHO Gant [address] [place] [address] ID Date Data Source [id number] 06/10/2019 08:44:00 AM EST CLARED ([facility] Medicine and Infectious Disease) Name Value Range Interpretation Description Data Sup porting Code Source(s) Document(s ) CD3+CD4+ (T4 432 Below low normal ABSOLUTE CD4 [facility] helper) cells Cells/mcL CELLS ([facility] [#/volume] in [facility] Blood Medicine and Infectious Disease) CD3+CD4+ (T4 15 Percent Below low normal % CD4 MERRY helper) ([facility] cells/100 [facility] cells in Blood Medicine and Infectious Disease) CD3+CD8+ (T8 60 Percent Above high normal % CD8 MERRY suppressor ([facility] cells) n [place] cells/100 Medicine and cells in Blood Infectious Disease) CD3+CD4+ (T4 0.25 Ratio Below low normal CD4/CD8 RAT[address] helper) ([facility] cells/CD3+CD8+ n [place] (T8 suppressor Medicine and cells) cells Infectious [# Ratio] in Disease) Blood Lymphocytes 2912 Normal (applies ABSOLUTE MERRY [#/volume] in Cells/mcL to non-numeric LYMPHOCYTES ([facility]pe Blood by results) n [place] Automated Medicine and count Infectious Disease) CD3+CD8+ (T8 1751 Above high normal ABSOLUTE CD8 [place] A[place] suppressor Cells/mcL CELLS ([facility] cells) cells n [place] [#/volume] in Medicine and Blood Infectious Disease) ID Date Data Source [id number] 06/10/2019 08:44:00 AM EST CLARED ([facility] Medicine and Infectious Disease) Name Value Range Interpretation Description Data Sup porting Code Source(s) Document(s ) Hemoglobin 6.7 Above high normal HEMOGLOBIN A1C [place] AY A1c/Hemoglobi %_of_tot ([facility] n.total in al_Hgb [place] Medicine Blood and Infectious Disease) Note: For [...] f or children. ID Date Data Source [id number] 06/10/2019 08:44:00 AM EST CLARED ([facility] Medicine and Infectious Disease) Name Value Range Interpretation Description Data Source(s ) Supporting Code Document(s ) Cell See Note Normal (applies to DIFFERENTIAL MERRY Fractions/ non-numeric ([facility] Differenti results) [place] Medicine al and Infectious [Interpret Disease) ation] in Blood Note: An instrument differentia l was performed. Leukocytes 7.7 Thousand/uL Normal (applies WBC [place] Y [#/volume] in to non-numeric ([facility] an [place] Blood by Automated results) Medicine an d count Infectious Disease) Hematocrit [Volume 40.2 % Normal (applies HEMATOCRIT GREE NWAY Fraction] of Blood to non-numeric ([facility] by Automated count results) Medicine an d Infectious Disease) Monocytes/100 9.2 % Normal (applies MONOCYTES,% MERRY leukocytes in to non-numeric ([facility] Blood by Automated results) Medicine an d count Infectious Disease) Eosinophils 547 cells/uL Above high EOSINOPHILS,AB MERRY [#/volume] in normal SOLUTE ([facility] Blood by Automated Medicine an d count Infectious Disease) Basophils/100 0.5 % Normal (applies BASOPHILS,% MERRY leukocytes in to non-numeric ([facility] Blood by Automated results) Medicine an d count Infectious Disease) Basophils 39 cells/uL Normal (applies BASOPHILS,ABSO [place] Y [#/volume] in to non-numeric LUTE ([facility] Blood by Automated results) Medicine an d count Infectious Disease) Lymphocytes 3088 cells/uL Normal (applies LYMPHOCYTES,AB GRE [place] [#/volume] in to non-numeric SOLUTE ([facility] Blood by Automated results) Medicine an d count Infectious Disease) Eosinophils/100 7.1 % Normal (applies EOSINOPHILS,% GREE NWAY leukocytes in to non-numeric ([facility] Blood by Automated results) Medicine an d count Infectious Disease) Lymphocytes/100 40.1 % Normal (applies TOTAL MERRY leukocytes in to non-numeric LYMPHOCYTES,% ([facility] [place] Blood by Automated results) Medicine an d count Infectious Disease) Hemoglobin 13.6 g/dL Normal (applies HEMOGLOBIN MERRY [Mass/volume] in to non-numeric ([facility] Blood results) Medicine and Infectious Disease) Neutrophils/100 43.1 % Normal (applies TOTAL MERRY leukocytes in to non-numeric NEUTROPHILS,% ([facility] [place] Blood by Automated results) Medicine an d count Infectious Disease) Monocytes 708 cells/uL Normal (applies MONOCYTES,ABSO GRE[place] AY [#/volume] in to non-numeric LUTE ([facility] Blood by Automated results) Medicine an d count Infectious Disease) Neutrophils 3319 cells/uL Normal (applies NEUTROPHILS,AB GRE [place] [#/volume] in to non-numeric SOLUTE ([facility] Blood by Automated results) Medicine an d count Infectious Disease) Platelets 271 Thousand/uL Normal (applies PLATELET COUNT GRE [place]AY [#/volume] in to non-numeric ([facility] Blood by Automated results) Medicine an d count Infectious Disease) Platelet mean 10.0 fL Normal (applies MPV MERRY volume [Entitic to non-numeric ([facility] volume] in Blood results) Medicine and by Sadaf Infectious Disease) Erythrocyte mean 32.3 pg Normal (applies MCH [place] Y corpuscular to non-numeric ([facility] hemoglobin results) Medicine and [Entitic mass] by Infectious Automated count Disease) Erythrocyte mean 33.8 g/dL Normal (applies MCHC [place] Y corpuscular to non-numeric ([facility] hemoglobin results) Medicine and concentration Infectious [Mass/volume] by Disease) Automated count Erythrocyte mean 95.5 fL Normal (applies MCV [place] Y corpuscular volume to non-numeric ([facility] [Entitic volume] results) Medicine and by Automated count Infectious Disease) Erythrocytes 4.21 Million/uL Normal (applies RBC [address] [#/volume] in to non-numeric ([facility] Blood by Automated results) Medicine an d count Infectious Disease) Erythrocyte 13.3 % Normal (applies RDW MERRY distribution width to non-numeric ([facility] [Ratio] by results) Medicine and Automated count Infectious Disease) ID Date Data Source [id number] 06/10/2019 08:44:00 AM EST MERRY ([facility] Medicine and Infectious Disease) Name Value Range Interpretation Description Data Sup porting Code Source(s) Document(s ) Cholesterol 186 Normal (applies CHOLESTEROL,TOT [place] AY [Mass/volume] mg/dL to non-numeric [place] ([facility] a in Serum or results) n [place] Plasma Medicine and Infectious Disease) Cholesterol in 37 mg/dL Below low normal HDL CHOLESTEROL GR EENWAY HDL ([facility] [Mass/volume] [facility] in Serum or Medicine and Plasma Infectious Disease) Triglyceride 226 Above high TRIGLYCERIDES MERRY [Mass/volume] mg/dL normal ([facility] in Serum or [facility] Plasma Medicine and Infectious Disease) Note: If a non-fasting specim en was collected, consider repeat triglyceride testing on a fasting specim en if clinically indicated. Sana et al. J of Clin. Lipidol. 2015 ;9:129-169. Cholesterol non HDL 149 mg/dL_(calc) Above high NON HDL GR EENWAY [Mass/volume] in normal CHOLESTEROL ([facility] Serum or Plasma Medicine and Infectious Disease) Note: For patients with diabe odalis plus 1 major ASCVD risk factor, treating to a non-HDL-C goal of <100 mg/ dL (LDL-C of <70 mg/dL) is considered a therapeutic option. Cholesterol.total/Cholesterol in 5.0 Above CHOLEST HAMIDA/HDL MERRY HDL [Mass Ratio] in Serum or calc high RATIO ( [facility] Plasma normal [place] Medicine and Infectious Disease) Cholesterol in LDL [Mass/volume] 115 Above LDL-CHO LESTEROL MERRY in Serum or Plasma by mg/dL_( high ([facility] litan calculation calc) normal [place] Medicine and Infectious Disease) Note: LDL-C is now calculated using the Violeta calculation, which is a validated novel method provi ding better accuracy than the Friedewald equation in the estimation of LDL-C. Werner SS et al. SYLVIA. 2013; 31019): [id number] For additio nal information, please refer to http://education.[employer]/fa q/MMC655 (This link is being provided for informational/educational pu rposes only.) Desirable range < 100 mg/dL for primary prevention; <70 mg/dL for patients with CHD or diabetic patients with > or = 2 CHD risk factors. ID Date Data Source [id number] 06/10/2019 08:44:00 AM EST M[facility]Y ([facility] [place] [facility]) Name Value Range Interpretation Description Data Sup porting Code Source(s) Document(s ) Alanine 17 U/L Normal (applies ALT MERRY aminotransferase to non-numeric ([facility] is[facility] [Enzymatic results) n [place] activity/volume] Medicine and in Serum or Plasma Infectious Disease) Albumin 4.0 Normal (applies ALBUMIN MERRY [Mass/volume] in g/dL to non-numeric ([facility] Serum or Plasma results) n [place] Medicine and Infectious Disease) Aspartate 21 U/L Normal (applies AST MERRY aminotransferase to non-numeric ([facility] [Enzymatic results) n [place] activity/volume] Medicine and in Serum or Plasma Infectious Disease) Albumin/Globulin 1.2 Normal (applies ALBUMIN/GLOBU GRE [place]AY [Mass Ratio] in (calc) to non-numeric KURTIS RATIO ([facility]pe Serum or Plasma results) n [place] Medicine and Infectious Disease) Calcium 9.8 Normal (applies CALCIUM MERRY [Mass/volume] in mg/dL to non-numeric ([facility] Serum or Plasma results) n [place] Medicine and Infectious Disease) Bilirubin.total 0.5 Normal (applies BILIRUBIN,TOT GREE NWAY [Mass/volume] in mg/dL to non-numeric [place] ([facility] Serum or Plasma results) [facility] Medicine and Infectious Disease) Carbon dioxide, 30 Normal (applies CARBON MERRY total mmol/L to non-numeric DIOXIDE ([facility] [Moles/volume] in results) n [place] Serum or Plasma Medicine and Infectious Disease) Chloride 103 Normal (applies CHLORIDE MERRY [Moles/volume] in mmol/L to non-numeric ([facility]ita Serum or Plasma results) [facility] Medicine and Infectious Disease) Creatinine 1.72 Above high CREATININE MERRY [Mass/volume] in mg/dL normal ([facility] Serum or Plasma n [place] Medicine and Infectious Disease) Note: The upper reference limit for Creatinine is approximately 13% higher for people identified as - Mongolian. Globulin 3.4 g/dL_(calc) Normal (applies GLOBULIN MERRY [Mass/volume] in to non-numeric ([facility] [place] Serum by results) Medicine and calculation Infectious Disease) Potassium 4.4 mmol/L Normal (applies POTASSIUM MERRY [Moles/volume] in to non-numeric ([facility] [place] Serum or Plasma results) Medicine and Infectious Disease) Glomerular 36 mL/min/1.73m2 Below low EGFR NON AFR MERRY filtration normal NICARAGUAN ([facility] rate/1.73 sq Medicine and M.predicted Infectious [Volume Rate/Area] Disease) in Serum or Plasma by Creatinine-based formula (MDRD) Protein 7.4 g/dL Normal (applies PROTEIN, TOTAL MERRY [Mass/volume] in to non-numeric ([facility] [place] Serum or Plasma results) Medicine and Infectious Disease) Glomerular 42 mL/min/1.73m2 Below low EGFR MERRY filtration normal N[place]ARAGUAN ([facility] rate/1.73 sq M Medicine and predicted among Infectious blacks [Volume Disease) Rate/Area] in Serum or Plasma by Creatinine-based formula (MDRD) Sodium 141 mmol/L Normal (applies SODIUM MERRY [Moles/volume] in to non-numeric ([facility] [place] Serum or Plasma results) Medicine and Infectious Disease) Urea 12 (calc) Normal (applies BUN/CREATININE MERRY nitrogen/Creatinin to non-numeric RATIO ([facility] [place] [place] e [Mass Ratio] in results) Medicine and Serum or Plasma Infectious Disease) Alkaline 33 U/L Below low ALKALINE CARMINE phosphatase normal PHOSPHATASE ([facility] [Enzymatic Medicine and activity/volume] Infectious in Serum or Plasma Disease) Urea nitrogen 21 mg/dL Normal (applies UREA NITROGEN [facility] AY [Mass/volume] in to non-numeric ([facility] Serum or Plasma results) Medicine and Infectious Disease) Fasting glucose 69 mg/dL Normal (applies GLUCOSE,FASTING GR EENWAY [Mass/volume] in to non-numeric ([facility] Serum or Plasma results) Medicine and Infectious Disease) Procedure Social History Code Duration Value Status Description Data Source(s ) Smoking 03/28/2020 denies EtOH, completed denies EtOH, MEDGEN ([employer] 12:00:00 AM EDT tobacco or tobacco or illicit M edical, PC) 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 Smoking 03/28/2020 Unknown if ever completed Unknown if ever MEDG EN ([employer] 12:00:00 AM EDT smoked smoked Medical, PC) Smoking 03/24/2020 denies EtOH, completed denies EtOH, MEDGEN ([employer] 12:00:00 AM EDT tobacco or tobacco or illicit M edical, PC) 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 Smoking 03/24/2020 Unknown if ever completed Unknown if ever MEDG EN ([facility] 12:00:00 AM EDT smoked smoked Medical, PC) Smoking 03/14/2020 denies EtOH, completed denies EtOH, MEDGEN ([employer] 12:00:00 AM EDT tobacco or tobacco or illicit M edical, PC) 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 Smoking 03/14/2020 Unknown if ever completed Unknown if ever MEDG EN ([employer] [employer] 12:00:00 AM EDT smoked smoked Medical, PC) Smoking 01/28/2020 Ex-smoker completed Ex-smoker MERRY 12:15:00 PM EDT (finding) (finding) ([facility] Medicine and Infectious Disease) Smoking 12/27/2019 Ex-smoker completed Ex-smoker MERRY 12:00:00 PM EDT (finding) (finding) ([facility] Medicine and Infectious Disease) Smoking 11/22/2019 Ex-smoker completed Ex-smoker MERRY 02:30:00 PM EDT (finding) (finding) ([facility] Medicine and Infectious Disease) Smoking 09/27/2019 Denies Ever completed Denies Ever Smoked [facility] 06:23:00 PM EDT Smoked Medical C enter Smoking 09/27/2019 Denies Ever completed Denies Ever Smoked [facility] 11:48:00 AM EDT Smoked Medical C enter Smoking 09/14/2019 Ex-smoker completed Ex-smoker MERRY 04:00:00 PM EDT (finding) (finding) ([facility] Medicine and Infectious Disease) Smoking 02/22/2019 Ex-smoker completed Ex-smoker MERRY 12:15:00 PM EDT (finding) (finding) ([facility] Medicine [facility] Infectious Disease) Vital Signs ID Date Data Source UNK Name Value Range Interpretation Code Description Data Source(s) Heart rate 78 /min 78 /min MEDGEN ([facility] , ) Respiratory rate 14 /min 14 /min MEDGEN ( [facility] [place]) Body mass index 21 kg/m2 21 kg/m2 MEDGEN (S t (BMI) [Ratio] [facility] [place], ) Diastolic blood 60 mm[Hg] 60 mm[Hg] MEDGEN ([place] [facility] [place] Systolic blood 100 mm[Hg] 100 mm[Hg] [facility] [place] Body weight 138 lb 138 lb MEDGEN ([facility] [place]) Body height 68 in 68 in MEDGEN ([facility] [place]) Heart rate 78 /min 78 /min MEDGEN ([facility] [place]) Respiratory rate 14 /min 14 /min MEDGEN ( [facility] [place]) Body mass index 21 kg/m2 21 kg/m2 MEDGEN (S t (BMI) [Ratio] [facility] [place]) Diastolic blood 60 mm[Hg] 60 mm[Hg] MEDGEN (S t pressure [facility] , ) Systolic blood 100 mm[Hg] 100 mm[Hg] MEDGEN ([facility] , ) Body weight 138 lb 138 lb MEDGEN ([facility] [place]) Body height 68 in 68 in MEDGEN ([facility] [place]) Heart rate 78 /min 78 /min MEDGEN ([facility] [place]) Respiratory rate 14 /min 14 /min [facility] ( [facility] Body mass index 21 kg/m2 21 kg/m2 [facility] (S t (BMI) [Ratio] [facility]) Diastolic blood 60 mm[Hg] 60 mm[Hg] [facility] ([place] [facility] [place] Systolic blood 100 mm[Hg] 100 mm[Hg] [facility] (St [facility] [place] Body weight 138 lb 138 lb [facility] ([facility]) Body height 68 in 68 in [facility] ([facility]) Body surface area 1.77 m2 1.77 m2 [facility] Y Derived from ([facility] Medicine an d Infectious Disease) Body mass index 23.0 kg/m2 23.0 kg/m2 CARMINE (BMI) [Ratio] ([facility] Medicine an d Infectious Disease) Body weight 147 [lb_av] 147 [lb_av] MERRY ([facility] Medicine an d Infectious Disease) Body height 67 [in_i] 67 [in_i] CARMINE ([facility] Medicine an d Infectious Disease) Respiratory rate 18 /min 18 /min CARMINE ([facility] Medicine an d Infectious Disease) Heart rate 68 /min 68 /min CARMINE ([facility] an d Infectious Disease) Diastolic blood 80 mm[Hg] 80 mm[Hg] CARMINE pressure ([facility] Medicine an d Infectious Disease) Systolic blood 122 mm[Hg] 122 mm[Hg] CARMINE pressure ([facility] Medicine an d Infectious Disease) Body weight 68.531560 68.837970 kg [facility] hs Measured kg Medical Center Body temperature 36.429510 36.965431 [facility] Respiratory rate 18 /min 18 /min [facility] Oxygen saturation 98 % 98 % [facility] Seven de s[place] in Arterial blood [facility] by Pulse oximetry Heart rate 73 /min 73 /min [facility] Body height 175.750415 175.854700 cm [facility] Diastolic blood 72 mm[Hg] 72 mm[Hg] [facility] pressure [facility] Systolic blood 143 mm[Hg] 143 mm[Hg] [facility] pressure [facility] Body mass index 22.1 kg/m2 22.1 kg/m2 [facility] (BMI) [Ratio] Medical [facility] Heart rate 73 /min 73 /min MEDGEN ([facility]) Inhaled oxygen 95 % 95 % MEDGEN ([facility] endy, PC) Body weight 150 lb 150 lb MEDGEN ([facility]) Heart rate 73 /min 73 /min MEDGEN ([facility]) Inhaled oxygen 95 % 95 % MEDGEN ([facility] endy, PC) Body weight 150 lb 150 lb MEDGEN ([facility]) Heart rate 73 /min 73 /min MEDGEN ([facility] , [facility]) Inhaled oxygen 95 % 95 % MEDGEN ([facility] endy, PC) Body weight 150 lb 150 lb MEDGEN ([facility]) Body height 67 [in_us] 67 [in_us] MERRY ([facility] Medicine an d Infectious Disease) Respiratory rate 18 /min 18 /min MERRY ([facility] Medicine an d Infectious Disease) Heart rate 68 /min 68 /min MERRY ([facility] Medicine an d Infectious Disease) Diastolic blood 60 mm[Hg] 60 mm[Hg] MERRY pressure ([facility] Medicine an d Infectious Disease) Systolic blood 120 mm[Hg] 120 mm[Hg] MERRY pressure ([facility] an d Infectious Disease) Patient Treatment Plan of Care Planned Activity Planned Date Details Description Data Source (s) Tamsulosin hydrochloride 02/07/2020 GRE ENWAY 0.4 MG Oral Capsule 12:00:00 AM EDT ([facility] [place] [facility] dolutegravir 50 MG Oral 11/22/2019 GREE NWAY Tablet [Tivicay] 12:00:00 AM EDT ([facility] Medicine and Infectious Dise ase) Metoprolol Tartrate 25 MG 11/22/2019 GR EENWAY Oral Tablet 12:00:00 AM EDT ([facility] Medicine and Infectious Dise ase) Fenofibrate 160 MG Oral 11/16/2019 GREE NWAY Tablet 12:00:00 AM EDT ([facility] Medicine and Infectious Dise ase) abacavir 300 MG Oral Tablet 10/01/2019 MERRY 12:00:00 AM EDT ([facility] Medicine and Infectious Dise ase) icosapent ethyl 1000 MG 09/27/2019 GREE NWAY Oral Capsule [Vascepa] 12:00:00 [facility] pioglitazone 30 MG Oral 09/27/2019 GREE NWAY Tablet 12:00:00 AM EDT ([facility] Medicine and Infectious Dise ase) sitagliptin 25 MG Oral 09/26/[address] Tablet [Januvia] 12:00:00 AM EDT ([facility] Medicine and Infectious Dise ase) Glipizide 10 MG Oral Tablet 09/26/2019 MERRY 12:00:00 AM EDT ([facility] Medicine and Infectious Dise ase) Fluticasone Propionate 50 08/03/2019 GR EENWAY MCG/ACT Nasal Suspension 12:00:00 AM EST ([facility] Medicine and Infectious Dise ase) abacavir 300 MG Oral Tablet 08/02/2019 MERRY 12:00:00 AM EST ([facility] Medicine and Infectious Dise ase) QC Fluticasone Propionate 07/16/2019 GR EENWAY 50 MCG/ACT Nasal Suspension 12:00:00 AM EST ([facility] Medicine and Infectious Dise ase) cobicistat 150 MG / 06/18/2019 MERRY darunavir 800 MG Oral 12:00:00 AM EST ([facility] [place] Tablet [Prezcobix] Medicine and Infectious Dise ase) Dextromethorphan 3 MG/ML / 05/24/2019 G REENWAY Promethazine Hydrochloride 12:00:00 AM EST ([facility] 1.25 MG/ML Oral Solution Med icine and Infectious Dise ase) Zithromax Z-Pk 250 MG Oral 05/24/2019 MERRY Tablet 12:00:00 AM EST ([facility] Medicine and Infectious Dise ase) Lamivudine 100 MG Oral 04/19/[address] Tablet 12:00:00 AM EDT ([facility] Medicine and Infectious Dise ase) abacavir 300 MG Oral Tablet 02/26/2019 MERRY 12:00:00 AM EDT ([facility] Medicine and Infectious Dise ase) Rosuvastatin calcium 10 MG 02/18/2019 G REENWAY Oral Tablet 12:00:00 AM EDT ([facility] Medicine and Infectious Dise ase) pioglitazone 30 MG Oral 09/15/2018 GREE NWAY Tablet 12:00:00 AM EDT ([facility] Medicine and Infectious Dise ase) Metoprolol Tartrate 25 MG 07/23/2018 GR EENWAY Oral Tablet 12:00:00 AM EST ([facility] Medicine and Infectious Dise ase) Ofloxacin 3 MG/ML 03/23/2018 MERRY Ophthalmic Solution 12:00:00 AM EDT ([facility] Medicine and Infectious Dise ase) Rosuvastatin calcium 10 MG 02/11/2018 G REENWAY Oral Tablet [Crestor] 12:00:00 AM EDT ([facility] Medicine and Infectious Dise ase) prasugrel 5 MG Oral Tablet 2017 G REENWAY [Effient] 12:00:00 AM EDT ([facility] Medicine and Infectious Dise ase) Fenofibrate 145 MG Oral 08/27/2017 GREE NWAY Tablet [Tricor] 12:00:00 AM EST ([facility] Medicine and Infectious Dise ase) Glipizide 10 MG Oral Tablet 12/12/2016 MERRY 12:00:00 AM EDT ([facility] Medicine and Infectious Dise ase) Metoprolol Tartrate 25 MG 12/06/2013 GR EENWAY Oral Tablet 12:00:00 AM EDT ([facility] Medicine and Infectious Dise ase)
--- NOTE | 2020-04-17 14:31 | PDOC ---
History of Present Illness - General Chief Complaint: Suture/Staple Removal(Here) Stated Complaint: REMOVE STITCHES Time Seen by Provider: 04/17/20 14:13 - History of Present Illness Initial Comments: 04/17/20 14:28 84-year-old male mary placed in the scalp 7 days ago. No sequelae since staple placement. Past History - Medical History Allergies/Adverse Reactions: Allergies Allergy/AdvReac Type Severity Reaction Status Date / Time No Known Allergies Allergy Verified 04/17/20 14:06 Home Medications: Ambulatory Orders Alpha Lipoic Acid 200 mg PO TID 12/17/12 Ascorbate Calcium/Bioflav [Cande-C 500 mg Tablet] 1 each PO TID 12/17/12 Fenofibrate [Lipofen] 160 mg PO DAILY 12/17/12 Ferrous Fumarate 65 mg PO DAILY 12/17/12 Sitagliptin Phosphate [Januvia] 25 mg PO DAILY 08/25/16 Cholecalciferol (Vitamin D3) [Vitamin D3] 2,000 unit PO BID 11/27/16 Multivitamin with Minerals [Icaps Plus] 1 each PO DAILY 11/27/16 Vitamin B Complex 1 tab PO DAILY 11/27/16 Vitamin E 400 unit PO DAILY 11/27/16 Carboxymethylcellulos/Glycerin [Lubricant 0.5-0.9% Eye Drops] 15 ml OP PRN 7 Days #1 drops 03/22/18 Tamsulosin HCl [Flomax] 0.4 mg PO DAILY 10/01/18 Fluticasone Prop 0.05% Nasal [Flonase -] 1 spray NS BID 12/13/19 Icosapent Ethyl [Vascepa] 2 cap PO BID 12/13/19 Lamivudine 50 mg PO DAILY 12/14/19 Melatonin 5 mg PO HS PRN tab 12/17/19 Acetaminophen [Tylenol .Regular Strength -] 650 mg PO Q6H PRN tablet 02/03/20 Aspirin Coated [Ecotrin -] 81 mg PO DAILY tablet.ec 02/03/20 Clopidogrel Bisulfate [Plavix -] 75 mg PO DAILY tablet 02/03/20 Darunavir/Cobicistat [Prezcobix 800 mg-150 mg Tablet] 1 each PO DAILY tablet 02/03/20 Docusate Sodium [Colace -] 300 mg PO HS capsule 02/03/20 Dolutegravir Sodium [Tivicay] 50 mg PO DAILY tablet 02/03/20 Glipizide [Glucotrol -] 10 mg PO BID@0700,1630 tablet 02/03/20 Lamivudine Oral Soln [Epivir Oral Solution -] 50 mg PO DAILY ml 02/03/20 Metoprolol Tartrate [Lopressor -] 25 mg PO BID tablet 02/03/20 Pioglitazone HCl [Actos] 30 mg PO DAILY@0700 tablet 02/03/20 Rosuvastatin [Crestor -] 10 mg PO HS tablet 02/03/20 Acetaminophen [Tylenol .Regular Strength -] 650 mg PO Q6H PRN tablet 04/12/20 Aspirin Coated [Ecotrin -] 81 mg PO DAILY tablet.ec 04/12/20 Cholecalciferol (Vitamin D3) [Vitamin D3 -] 5,000 unit PO DAILY #30 tab 04/12/20 Clopidogrel Bisulfate [Plavix -] 75 mg PO DAILY tablet 04/12/20 Darunavir/Cobicistat [Prezcobix 800 mg-150 mg Tablet] 1 each PO DAILY tablet 04/12/20 Docusate Sodium [Colace -] 300 mg PO HS capsule 04/12/20 Dolutegravir Sodium [Tivicay] 50 mg PO DAILY tablet 04/12/20 Lamivudine Oral Soln [Epivir Oral Solution -] 50 mg PO DAILY ml 04/12/20 Melatonin 5 mg PO HS PRN tab 04/12/20 Metoprolol Tartrate [Lopressor -] 25 mg PO BID tablet 04/12/20 Rosuvastatin [Crestor -] 10 mg PO HS tablet 04/12/20 Anemia: No Asthma: No Cancer: No Cardiac Disorders: Yes (CAD, EF 66%) CVA: Yes (TIA) COPD: Yes CHF: No DVT: No Dementia: No Diabetes: Yes GI Disorders: Yes (Proctitis) Disorders: Yes (BPH) HTN: Yes Hypercholesterolemia: Yes Liver Disease: No Seizures: No Thyroid Disease: No Lung CA: (pulmonary nodules) - Surgical History Abdominal Surgery: Yes (ANAL FISSURE) Appendectomy: No Cardiac Surgery: Yes (CARDIAC STENT; carotid endarterectomy) Cholecystectomy: No Lung Surgery: No Neurologic Surgery: No Orthopedic Surgery: No - Immunization History Td Vaccination: (unsure) Immunization Up to Date: Yes - Psycho-Social/Smoking History Smoking Status: No Smoking History: Never smoked Years of Tobacco Use: 0 Have you smoked in the past 12 months: No Number of Cigarettes Smoked Daily: 0 Cigars Per Day: 0 - Substance Abuse Hx (Audit-C & DAST Scrn) How often the patient has a drink containing alcohol: Monthly or less Number of drinks the patient has on a typical day: 1 or 2 How often the patient has six or more drinks on one occasion: Never Score: In Men: 4 or > Positive; In Women: 3 or > Positive: 1 Screen Result (Pos requires Nsg. Audit-10AR): Negative In the last yr the pt used illegal drug/Rx for NonMed reason: No Score: Yes response is considered Positive: 0 Screen Result (Positive result requires Nsg. DAST-10): Negative Review of Systems - Review of Systems Constitutional: No: Fever *Physical Exam - Vital Signs Last Vital Signs Temp Pulse Resp BP Pulse Ox 97.8 F 73 16 101/53 L 98 04/17/20 14:07 04/17/20 14:07 04/17/20 14:07 04/17/20 14:07 04/17/20 14:07 - Physical Exam 04/17/20 14:30 Wound on scalp is clean dry and intact healing well mary in place normal surrounding skin color and temperature Medical Decision Making - Medical Decision Making 04/17/20 14:30 Mary removed with staple remover without sequelae I have reviewed the pathophysiology with the patient. They are in agreement with the treatment plan all questions were answered to their satisfaction. Understanding for follow-up without fail was also conveyed to the patient. Again they are in agreement. Discharge - Discharge Information Problems reviewed: Yes Clinical Impression/Diagnosis: Removal of staple Condition: Stable Disposition: HOME - Admission No - Follow up/Referral Referrals: Fred Marks MD [Primary Care Provider] - - Patient Discharge Instructions Additional Instructions: Please keep the area clean and dry for the next 48 hours. After 48 hours you may gently wash the area with soap and water do not scrub it. Return to the emergency room for further issues and without fail follow-up with your primary care physician in 2 to 3 days for a wound check. You may also come back to the emergency room for a wound check if you are unable to obtain an appointment with your primary care physician. - Post Discharge Activity
== END 2020-04-17 14:35 | disposition home or self-care (01) ==
LOC: JERFT 14:04
DX: Z48.02 Encounter for removal of sutures (principal)
CPT/HCPCS: 99281-25

== ENCOUNTER 2020-08-26 20:31 | Emergency (ER) | payer BC, OTHER ==
[2020-08-26 20:38] VITALS: TEMP 97.8; BMI 22.1
[2020-08-26 21:29] VITALS: BP 103/68; PULSE 76
== END 2020-08-26 21:29 | disposition home or self-care (01) ==
LOC: JER 20:31
DX: Z11.52 Encounter for screening for COVID-19 (principal)
CPT/HCPCS: 99284-25; C9803; U0003

== ENCOUNTER 2020-10-03 16:32 | Inpatient (IN) | payer OTHER ==
[2020-10-03 16:44] VITALS: BMI 20.7
[2020-10-03] MEDS ORDERED: SODIUM CHLORIDE 1,000 ML IV STA (17:48)
[2020-10-03 18:43] LABS: BASO % 0.7 % (0-2.0); EOS % 6.9 % (0-4.5); HEMATOCRIT 37.1 % (35.4-49); HEMOGLOBIN 12.6 GM/dL (11.7-16.9); MCH 32.7 pg (25.7-33.7); MCHC 33.9 g/dl (32.0-35.9); MEAN CELL VOLUME 96.3 fl (80-96); MEAN PLT VOLUME 8.5 fl (7.5-11.1); MONO % 8.8 % (3.8-10.2); NEUT % 61.6 % (42.8-82.8); PLATELET COUNT 187 K/MM3 (134-434); RBC 3.86 M/mm3 (4.00-5.60); WHITE BLOOD COUNT 5.6 K/mm3 (4.0-10.0)
[2020-10-03 18:46] LABS: POTASSIUM 4.6 mmol/L (3.5-5.1)
[2020-10-03 18:48] LABS: CALCIUM 8.8 mg/dL (8.5-10.1)
[2020-10-03 18:49] LABS: ALBUMIN 3.4 g/dl (3.4-5.0); MAGNESIUM 2.2 mg/dL (1.8-2.4)
[2020-10-03 18:50] LABS: INR 1.05 (0.83-1.09); PROTHROMBIN TIME (PATIENT) 12.7 SEC (9.7-13.0)
[2020-10-03 18:52] LABS: ACTIVATED PTT 30.2 SECONDS (25.2-36.5); CREATININE 2.2 mg/dL (0.55-1.3)
[2020-10-03 18:54] LABS: BILIRUBIN,TOTAL 0.6 mg/dL (0.2-1); TOT PROT 7.1 g/dl (6.4-8.2)
[2020-10-03] MEDS ORDERED: SODIUM CHLORIDE 1,000 ML IV SCH (20:00)
[2020-10-03] MEDS ORDERED: ENOXAPARIN NA (PORCINE) 40 MG/0.4 ML DISP.SYRIN SQ ONE (20:23)
[2020-10-03] MEDS ORDERED: PANTOPRAZOLE 40 MG TABLET ONE (20:23)
[2020-10-03] MEDS: PANTOPRAZOLE 40 MG TABLET PO SCH (20:32)
[2020-10-03] MEDS: ENOXAPARIN NA (PORCINE) 40 MG/0.4 ML DISP.SYRIN SQ SCH (20:32)
[2020-10-03] MEDS: INSULIN SLIDING SCALE (NOVOLOG) 1 VIAL SQ SCH (20:42)
[2020-10-03] MEDS ORDERED: ASCORBIC ACID 500 MG TABLET (FP) ONE (22:04)
[2020-10-03] MEDS ORDERED: CHOLECALCIFEROL (VIT D3) 1,000 UNIT (25 MCG) TABLET ONE ×2 (22:05→22:07)
[2020-10-03] MEDS: CHOLECALCIFEROL (VIT D3) 1,000 UNIT (25 MCG) TABLET PO SCH (22:10)
[2020-10-03] MEDS: ASCORBIC ACID 500 MG TABLET (FP) PO SCH (22:10)
[2020-10-03 22:11] LABS: PH,URINE 6.5 (5.0-8.0); URINE APPEARANCE CLEAR; URINE BILIRUBIN NEGATIVE (NEGATIVE); URINE COLOR YELLOW; URINE GLUCOSE (UA) 2+ (NEGATIVE); URINE KETONE NEGATIVE (NEGATIVE); URINE LEUK ESTERASE NEGATIVE (NEGATIVE); URINE NITRITE NEGATIVE (NEGATIVE); URINE PROTEIN TRACE (NEGATIVE); URINE UROBILINOGEN 0.2 mg/dL (0.2-1.0)
[2020-10-04] MEDS ORDERED: ACETAMINOPHEN 1000 MG/100 ML VIAL (NON FORMULARY) IVPB ONE (05:14)
[2020-10-04] MEDS ORDERED: INSULIN (NOVOLOG MIX 70/30) 100 UNITS/ML MDV SQ SCH (07:00)
[2020-10-04] MEDS ORDERED: ACETAMINOPHEN 325 MG TABLET (FP) PO PRN (07:30)
[2020-10-04 07:33] LABS: BASO % 0.5 % (0-2.0); EOS % 5.5 % (0-4.5); HEMATOCRIT 35.9 % (35.4-49); HEMOGLOBIN 12.2 GM/dL (11.7-16.9); LYMPH % 23.4 % (8-40); MCH 32.8 pg (25.7-33.7); MCHC 34.1 g/dl (32.0-35.9); MEAN CELL VOLUME 96.4 fl (80-96); MEAN PLT VOLUME 7.8 fl (7.5-11.1); MONO % 9.1 % (3.8-10.2); NEUT % 61.5 % (42.8-82.8); PLATELET COUNT 162 K/MM3 (134-434); RBC 3.73 M/mm3 (4.00-5.60); RDW 12.7 % (11.9-15.9); WHITE BLOOD COUNT 5.6 K/mm3 (4.0-10.0)
[2020-10-04 07:59] LABS: POTASSIUM 4.4 mmol/L (3.5-5.1)
[2020-10-04 08:56] LABS: ALBUMIN 3.3 g/dl (3.4-5.0); BLOOD UREA NITROGEN 23.6 mg/dL (7-18); CALCIUM 8.6 mg/dL (8.5-10.1); MAGNESIUM 2.2 mg/dL (1.8-2.4)
[2020-10-04 08:59] LABS: CREATININE 2.2 mg/dL (0.55-1.3); PHOSPHOROUS 2.7 mg/dL (2.5-4.9)
[2020-10-04 09:00] LABS: BILIRUBIN,TOTAL 0.6 mg/dL (0.2-1); TOT PROT 6.7 g/dl (6.4-8.2)
[2020-10-04] MEDS ORDERED: PT OWN MED DRAWER 7, Y5N ONE (12:58)
[2020-10-04] MEDS: FENOFIBRIC ACID 135 MG CAP PO SCH (13:02)
[2020-10-04] MEDS: CHOLECALCIFEROL (VIT D3) 1,000 UNIT (25 MCG) TABLET PO SCH ×2 (13:02→22:51)
[2020-10-04] MEDS: MULTIVITAMINS THER W-MINERALS COMBO TABLET (FP) PO SCH (13:02)
[2020-10-04] MEDS: ENOXAPARIN NA (PORCINE) 40 MG/0.4 ML DISP.SYRIN SQ SCH (13:02)
[2020-10-04] MEDS: PANTOPRAZOLE 40 MG TABLET PO SCH (13:02)
[2020-10-04] MEDS: ASCORBIC ACID 500 MG TABLET (FP) PO SCH ×3 (13:02→22:51)
[2020-10-04] MEDS: INSULIN SLIDING SCALE (NOVOLOG) 1 VIAL SQ SCH ×3 (13:08→18:04)
[2020-10-04] MEDS ORDERED: ASCORBIC ACID 500 MG TABLET (FP) ONE ×2 (14:20→16:16)
[2020-10-04] MEDS: INSULIN (NOVOLOG MIX 70/30) 100 UNITS/ML MDV SQ SCH (15:30)
[2020-10-04] MEDS ORDERED: INSULIN (NOVOLOG MIX 70/30) 100 UNITS/ML MDV SQ ONE (16:19)
[2020-10-04] MEDS ORDERED: INSULIN SLIDING SCALE (NOVOLOG) 1 VIAL SQ SCH (17:59)
[2020-10-04] MEDS: POTASSIUM CHLORIDE 10 MEQ in DEXTROSE 5%-NORMAL SALINE 1,000 ML IVPB SCH (19:02)
[2020-10-05] MEDS ORDERED: MELATONIN 5 MG TABLETS PO PRN (00:02)
[2020-10-05] MEDS: ASCORBIC ACID 500 MG TABLET (FP) PO SCH ×2 (05:56→13:37)
[2020-10-05] MEDS: POTASSIUM CHLORIDE 10 MEQ in DEXTROSE 5%-NORMAL SALINE 1,000 ML IVPB SCH (05:56)
[2020-10-05] MEDS: INSULIN (NOVOLOG MIX 70/30) 100 UNITS/ML MDV SQ SCH (07:26)
[2020-10-05 07:50] LABS: BASO % 0.5 % (0-2.0); EOS % 10.8 % (0-4.5); HEMATOCRIT 37.3 % (35.4-49); HEMOGLOBIN 12.8 GM/dL (11.7-16.9); MCH 32.9 pg (25.7-33.7); MCHC 34.2 g/dl (32.0-35.9); MEAN CELL VOLUME 96.2 fl (80-96); MEAN PLT VOLUME 8.1 fl (7.5-11.1); MONO % 11.2 % (3.8-10.2); NEUT % 41.5 % (42.8-82.8); PLATELET COUNT 180 K/MM3 (134-434); RBC 3.88 M/mm3 (4.00-5.60); RDW 12.9 % (11.9-15.9); WHITE BLOOD COUNT 7.2 K/mm3 (4.0-10.0)
[2020-10-05 08:26] LABS: CREATININE 1.8 mg/dL (0.55-1.3)
[2020-10-05] MEDS: CHOLECALCIFEROL (VIT D3) 1,000 UNIT (25 MCG) TABLET PO SCH (09:24)
[2020-10-05] MEDS: MULTIVITAMINS THER W-MINERALS COMBO TABLET (FP) PO SCH (09:24)
[2020-10-05] MEDS: ENOXAPARIN NA (PORCINE) 40 MG/0.4 ML DISP.SYRIN SQ SCH (09:24)
[2020-10-05] MEDS: FENOFIBRIC ACID 135 MG CAP PO SCH (09:24)
[2020-10-05] MEDS: PANTOPRAZOLE 40 MG TABLET PO SCH (09:24)
[2020-10-05] MEDS ORDERED: DARUNAVIR 800 MG/COBICISTAT 150MG TABLET PO SCH (10:00)
[2020-10-05] MEDS ORDERED: PNEUMOC 13-VAL CONJ-DIP CRM/PF 0.5 ML DISP.SYRIN IM ONE (10:00)
[2020-10-05] MEDS ORDERED: METOPROLOL TARTRATE 25 MG TABLET (FP) PO SCH (10:00)
[2020-10-05] MEDS ORDERED: DOLUTEGRAVIR SODIUM 50 MG TABLET (NON-FORMULARY) PO SCH (10:00)
[2020-10-05] MEDS ORDERED: lamiVUDine 10 MG/1 ML BULK BOTTLE PO SCH (10:00)
[2020-10-05 11:46] VITALS: BP 107/66; PULSE 73
[2020-10-05 11:47] VITALS: TEMP 97.7
[2020-10-05] MEDS ORDERED: INSULIN (NOVOLOG MIX 70/30) 100 UNITS/ML MDV SQ SCH (16:30)
[2020-10-05] MEDS ORDERED: ROSUVASTATIN CA 10 MG TABLET (FP) PO SCH (22:00)
== END 2020-10-05 14:50 | DRG 948 ==
LOC: JER 16:32 → JERBED 19:05 → J4W 10-04 21:09
PROVIDERS: ADMIT Internal Medicine; ATTEND Internal Medicine
DX: R53.1 Weakness (principal); E87.1 Hypo-osmolality and hyponatremia; T50.B95A Adverse effect of other viral vaccines, initial encounter; I49.8 Other specified cardiac arrhythmias; I45.19 Other right bundle-branch block; I10 Essential (primary) hypertension; E78.5 Hyperlipidemia, unspecified; Z21 Asymptomatic human immunodeficiency virus [HIV] infection status; I25.10 Atherosclerotic heart disease of native coronary artery without angina pectoris; N40.0 Benign prostatic hyperplasia without lower urinary tract symptoms; J44.9 Chronic obstructive pulmonary disease, unspecified; R91.8 Other nonspecific abnormal finding of lung field; E11.42 Type 2 diabetes mellitus with diabetic polyneuropathy; R26.9 Unspecified abnormalities of gait and mobility; M54.5 Low back pain; E86.0 Dehydration; E11.65 Type 2 diabetes mellitus with hyperglycemia; S01.81XA Laceration without foreign body of other part of head, initial encounter; W18.30XA Fall on same level, unspecified, initial encounter; E55.9 Vitamin D deficiency, unspecified; Y92.89 Other specified places as the place of occurrence of the external cause; Y99.8 Other external cause status; Z79.84 Long term (current) use of oral hypoglycemic drugs; Z95.5 Presence of coronary angioplasty implant and graft; Z86.73 Personal history of transient ischemic attack (TIA), and cerebral infarction without residual deficits
CPT/HCPCS: 36415; 70450-TC; 71045-TC-FY; 72125-TC; 80048; 80053; 81003; 82550; 82962; 83036; 83735; 84100; 84484; 85025; 85610; 85730; 93005; 93010; 97116-GP; 97161-GP; 99285-25; C9803; U0003; U0005

== ENCOUNTER 2020-10-11 17:48 | Emergency (ER) | payer OTHER ==
[2020-10-11 17:56] VITALS: BP 122/70; PULSE 66; TEMP 98; BMI 23.4
[2020-10-11 21:30] LABS: EPI CELLS 2 /uL (0-25.1); HYALINE CASTS 0 /uL (0-3.1); URINE APPEARANCE CLEAR; URINE BACTERIA 36 /uL (0-1359); URINE BILIRUBIN NEGATIVE (NEGATIVE); URINE COLOR YELLOW; URINE GLUCOSE (UA) 2+ (NEGATIVE); URINE KETONE NEGATIVE (NEGATIVE); URINE LEUK ESTERASE NEGATIVE (NEGATIVE); URINE NITRITE NEGATIVE (NEGATIVE); URINE PROTEIN 1+ (NEGATIVE); URINE RBC 4 /uL (0-23.9); URINE UROBILINOGEN 0.2 mg/dL (0.2-1.0); URINE WBC 1 /uL (0-25.8)
== END 2020-10-11 22:32 | disposition left against medical advice (07) ==
LOC: JER 17:48
DX: R10.9 Unspecified abdominal pain (principal)
CPT/HCPCS: 81003; 99283-25

== ENCOUNTER 2020-12-30 15:19 | Emergency (ER) | payer BC, OTHER ==
[2020-12-30 15:30] VITALS: BMI 22.1
[2020-12-30] MEDS ORDERED: LIDOCAINE 5% TOPICAL PATCH TP ONE (16:25)
[2020-12-30] MEDS ORDERED: LIDOCAINE 5% TOPICAL PATCH ONE (16:54)
[2020-12-30 17:19] VITALS: PULSE 85; TEMP 98.5
[2020-12-30 17:58] VITALS: BP 128/90
[2020-12-30] MEDS ORDERED: LIDOCAINE PATCH REMOVAL MC SCH (22:00)
== END 2020-12-30 18:13 | disposition home or self-care (01) ==
LOC: JER 15:19
DX: M54.10 Radiculopathy, site unspecified (principal)
CPT/HCPCS: 99283-25

== ENCOUNTER 2021-01-06 14:15 | Inpatient (IN) | payer BC, OTHER ==
[~2021-01-06 14:15] MED LIST: DOLUTEGRAVIR SODIUM 50 MG TABLET (NON-FORMULARY) PO SCH
[2021-01-06 16:11] LABS: HEMATOCRIT 46.1 % (35.4-49); HEMOGLOBIN 15.8 GM/dL (11.7-16.9); MCH 31.9 pg (25.7-33.7); MCHC 34.4 g/dl (32.0-35.9); MEAN CELL VOLUME 92.7 fl (80-96); MEAN PLT VOLUME 7.9 fl (7.5-11.1); PLATELET COUNT 221 10^3/uL (134-434); RBC 4.97 M/mm3 (4.00-5.60); WHITE BLOOD COUNT 8.3 K/mm3 (4.0-10.0)
[2021-01-06 16:29] LABS: CALCIUM 9.4 mg/dL (8.5-10.1)
[2021-01-06 16:30] LABS: BLOOD UREA NITROGEN 44.6 mg/dL (7-18); INR 1.04 (0.83-1.09); PROTHROMBIN TIME (PATIENT) 12.8 SEC (9.7-13.0)
[2021-01-06 16:32] LABS: ACTIVATED PTT 26.7 SECONDS (25.2-36.5)
[2021-01-06 16:33] LABS: CREATININE 1.9 mg/dL (0.55-1.3)
[2021-01-06 16:35] LABS: BILIRUBIN,TOTAL 0.7 mg/dL (0.2-1); TOT PROT 8.5 g/dl (6.4-8.2)
[2021-01-06] MEDS ORDERED: ACETAMINOPHEN 1000 MG/100 ML VIAL (NON FORMULARY) IVPB ONE (17:42)
[2021-01-06] MEDS ORDERED: ACETAMINOPHEN INJECTION 100 ML IVPB ONE (17:43)
[2021-01-06] MEDS ORDERED: INSULIN REGULAR HUMAN 100 UNITS/ML *VIAL SQ ONE (18:08)
[2021-01-06] MEDS ORDERED: INSULIN REGULAR HUMAN 100 UNITS/ML *VIAL ONE (18:27)
[2021-01-06] MEDS ORDERED: SODIUM CHLORIDE 0.9% 500 ML INFUS.BAG IV ONE (19:48)
[2021-01-06] MEDS ORDERED: ROSUVASTATIN CA 5 MG TABLET (FP) PO SCH (22:00)
[2021-01-06] MEDS ORDERED: ENOXAPARIN NA (PORCINE) 40 MG/0.4 ML DISP.SYRIN SQ ONE (22:15)
[2021-01-06] MEDS ORDERED: PANTOPRAZOLE 40 MG TABLET ONE (22:15)
[2021-01-06] MEDS: ENOXAPARIN NA (PORCINE) 40 MG/0.4 ML DISP.SYRIN SQ SCH (22:37)
[2021-01-06] MEDS: INSULIN SLIDING SCALE (NOVOLOG) 1 VIAL SQ SCH (22:37)
[2021-01-06] MEDS: DEXTROSE 5%-0.45% SALINE 1,000 ML IV SCH (22:38)
[2021-01-06] MEDS: PANTOPRAZOLE 40 MG TABLET PO SCH (22:38)
[2021-01-07 00:57] VITALS: BMI 18.5
[2021-01-07] MEDS: oxyCODONE HCL 5 MG TABLET PO PRN ×2 (01:00→10:54)
[2021-01-07] MEDS: INSULIN (NOVOLOG MIX 70/30) 100 UNITS/ML MDV SQ SCH ×2 (06:19→17:09)
[2021-01-07] MEDS: INSULIN SLIDING SCALE (NOVOLOG) 1 VIAL SQ SCH ×3 (06:19→17:10)
[2021-01-07 07:52] LABS: BASO % 0.5 % (0-2.0); EOS % 7.1 % (0-4.5); HEMATOCRIT 40.1 % (35.4-49); HEMOGLOBIN 13.5 GM/dL (11.7-16.9); LYMPH % 43.7 % (8-40); MCH 31.6 pg (25.7-33.7); MCHC 33.8 g/dl (32.0-35.9); MEAN CELL VOLUME 93.5 fl (80-96); MEAN PLT VOLUME 7.9 fl (7.5-11.1); MONO % 8.6 % (3.8-10.2); NEUT % 40.1 % (42.8-82.8); PLATELET COUNT 198 10^3/uL (134-434); RBC 4.28 M/mm3 (4.00-5.60); RDW 13.2 % (11.9-15.9); WHITE BLOOD COUNT 6.5 K/mm3 (4.0-10.0)
[2021-01-07 08:14] LABS: CALCIUM 8.2 mg/dL (8.5-10.1)
[2021-01-07 08:15] LABS: ALBUMIN 3.2 g/dl (3.4-5.0); BLOOD UREA NITROGEN 36.2 mg/dL (7-18)
[2021-01-07 08:18] LABS: CREATININE 1.6 mg/dL (0.55-1.3)
[2021-01-07 08:19] LABS: BILIRUBIN,TOTAL 0.6 mg/dL (0.2-1); TOT PROT 6.8 g/dl (6.4-8.2)
[2021-01-07] MEDS: ENOXAPARIN NA (PORCINE) 40 MG/0.4 ML DISP.SYRIN SQ SCH (10:25)
[2021-01-07] MEDS: PANTOPRAZOLE 40 MG TABLET PO SCH (10:25)
[2021-01-07] MEDS: DEXTROSE 5%-0.45% SALINE 1,000 ML IV SCH (10:55)
[2021-01-07] MEDS: KCL 10 MEQ IVPB 10 MEQ/100 ML INFUS.BAG IVPB SCH ×3 (12:08→17:04)
[2021-01-07] MEDS ORDERED: DARUNAVIR 800 MG/COBICISTAT 150MG TABLET PO SCH (12:15)
[2021-01-07] MEDS ORDERED: ABACAVIR SULFATE 300 MG TABLET PO SCH (12:15)
[2021-01-07 15:56] VITALS: TEMP 97.4
[2021-01-07 19:10] VITALS: BP 152/81; PULSE 86
== END 2021-01-07 19:00 | disposition home or self-care (01) | DRG 552 ==
LOC: JER 14:15 → J8W 16:28 → JERBED 21:01 → J5S 22:58
PROVIDERS: ADMIT Internal Medicine; ATTEND Internal Medicine
DX: M54.5 Low back pain (principal); E87.1 Hypo-osmolality and hyponatremia; N18.30 Chronic kidney disease, stage 3 unspecified; E11.65 Type 2 diabetes mellitus with hyperglycemia; Z21 Asymptomatic human immunodeficiency virus [HIV] infection status; E86.0 Dehydration; E87.6 Hypokalemia; I25.10 Atherosclerotic heart disease of native coronary artery without angina pectoris; G62.9 Polyneuropathy, unspecified; E88.09 Other disorders of plasma-protein metabolism, not elsewhere classified; E78.5 Hyperlipidemia, unspecified; Z79.4 Long term (current) use of insulin
CPT/HCPCS: 36415; 72131-TC; 72148-TC; 80053; 82962; 85025; 85027; 85610; 85730; 93005; 93010; 99285-25; C9803; G0378; J0131; U0003; U0005

== ENCOUNTER 2021-02-22 09:20 | Emergency (ER) | payer BC, OTHER ==
[2021-02-22 09:32] VITALS: TEMP 97.4; BMI 19.9
[2021-02-22] MEDS ORDERED: ACETAMINOPHEN 1000 MG/100 ML VIAL (NON FORMULARY) IVPB ONE (10:20)
[2021-02-22] MEDS ORDERED: SODIUM CHLORIDE 0.9% 1000 ML INFUS.BAG IV ONE (10:20)
[2021-02-22] MEDS ORDERED: ACETAMINOPHEN INJECTION 100 ML IVPB ONE (10:31)
[2021-02-22 10:54] LABS: BASO % 0.4 % (0-2.0); EOS % 4.2 % (0-4.5); HEMOGLOBIN 13.6 GM/dL (11.7-16.9); LYMPH % 29.8 % (8-40); MCH 32.3 pg (25.7-33.7); MCHC 34.1 g/dl (32.0-35.9); MEAN CELL VOLUME 94.7 fl (80-96); MONO % 7.6 % (3.8-10.2); PLATELET COUNT 220 10^3/uL (134-434); RBC 4.22 M/mm3 (4.00-5.60); RDW 13.5 % (11.9-15.9); WHITE BLOOD COUNT 8.3 K/mm3 (4.0-10.0)
[2021-02-22 11:21] LABS: CALCIUM 9.4 mg/dL (8.5-10.1)
[2021-02-22 11:22] LABS: ALBUMIN 3.9 g/dl (3.4-5.0); BLOOD UREA NITROGEN 41.9 mg/dL (7-18)
[2021-02-22 11:25] LABS: CREATININE 2.2 mg/dL (0.55-1.3)
[2021-02-22 11:26] LABS: BILIRUBIN,TOTAL 0.6 mg/dL (0.2-1); TOT PROT 8.2 g/dl (6.4-8.2)
[2021-02-22] MEDS ORDERED: POLYETHYLENE GLYCOL (HEALTHYLAX) 3350 17 GM PACKET PO SCH (11:45)
[2021-02-22 13:03] LABS: EPI CELLS 0 /uL (0-25.1); HYALINE CASTS 0 /uL (0-3.1); URINE APPEARANCE CLEAR; URINE BACTERIA 18 /uL (0-1359); URINE BILIRUBIN NEGATIVE (NEGATIVE); URINE COLOR YELLOW; URINE GLUCOSE (UA) 2+ (NEGATIVE); URINE KETONE NEGATIVE (NEGATIVE); URINE LEUK ESTERASE NEGATIVE (NEGATIVE); URINE NITRITE NEGATIVE (NEGATIVE); URINE PROTEIN 1+ (NEGATIVE); URINE RBC 5 /uL (0-23.9); URINE UROBILINOGEN 0.2 mg/dL (0.2-1.0); URINE WBC 1 /uL (0-25.8)
[2021-02-22 15:18] VITALS: BP 144/78; PULSE 87
== END 2021-02-22 15:12 | disposition home or self-care (01) ==
LOC: JERFT 09:20
PROC: 3E033GC Introduction of Other Therapeutic Substance into Peripheral Vein, Percutaneous Approach (ICD-10-PCS; principal; 2021-02-22)
DX: K56.41 Fecal impaction (principal); K59.00 Constipation, unspecified
CPT/HCPCS: 36415; 71045-TC-FY; 71250-TC; 74176-TC; 80053; 81003; 83690; 85025; 87086; 93005; 93010; 99285-25; C9803; J0131; U0003; U0005

== ENCOUNTER 2021-04-05 15:02 | Emergency (ER) | payer BC, OTHER ==
[2021-04-05 15:14] VITALS: BP 95/63; PULSE 76; TEMP 98.9; BMI 20.7
== END 2021-04-05 15:56 | disposition home or self-care (01) ==
LOC: JERFT 15:02
DX: H61.23 Impacted cerumen, bilateral (principal)
CPT/HCPCS: 99282-25

== ENCOUNTER 2021-08-27 15:07 | Emergency (ER) | payer OTHER ==
[2021-08-27 15:32] VITALS: TEMP 98.7; BMI 21.4
[2021-08-27 17:33] LABS: BASO % 0.3 % (0-2.0); EOS % 2.5 % (0-4.5); HEMATOCRIT 39.5 % (35.4-49); HEMOGLOBIN 13.4 GM/dL (11.7-16.9); LYMPH % 24.1 % (8-40); MCH 32.6 pg (25.7-33.7); MCHC 33.9 g/dl (32.0-35.9); MEAN CELL VOLUME 96.2 fl (80-96); MEAN PLT VOLUME 7.5 fl (7.5-11.1); NEUT % 65.1 % (42.8-82.8); PLATELET COUNT 190 10^3/uL (134-434); RDW 13.4 % (11.9-15.9); WHITE BLOOD COUNT 8.9 K/mm3 (4.0-10.0)
[2021-08-27 17:50] LABS: CHLORIDE 99 mmol/L (98-107); SODIUM 136 mmol/L (136-145)
[2021-08-27 17:52] LABS: ALBUMIN 4.1 g/dl (3.4-5.0); ANION GAP 7 MMOL/L (8-16); BLOOD UREA NITROGEN 63.1 mg/dL (7-18); CALCIUM 9.6 mg/dL (8.5-10.1); CO2 29 mmol/L (21-32); MAGNESIUM 2.6 mg/dL (1.8-2.4)
[2021-08-27 17:55] LABS: CREATININE 2.2 mg/dL (0.55-1.3); SGOT/AST 21 U/L (15-37); SGPT/ALT 27 U/L (13-61)
[2021-08-27 17:57] LABS: BILIRUBIN,TOTAL 0.5 mg/dL (0.2-1)
[2021-08-27 17:58] LABS: ALK PHOS 44 U/L (45-117)
[2021-08-27 17:59] LABS: GLUCOSE,RANDOM 428 mg/dL (74-106)
[2021-08-27] MEDS ORDERED: SODIUM CHLORIDE 0.9% 1000 ML INFUS.BAG IV ONE (18:02)
[2021-08-27] MEDS ORDERED: MAGNESIUM CITRATE 300 ML BOTTLE PO ONE (18:43)
[2021-08-27] MEDS ORDERED: SODIUM PHOSPHATE/NA BIPHOS 133 ML ENEMA PR ONE (18:43)
[2021-08-27 22:17] VITALS: BP 145/73; PULSE 90
== END 2021-08-27 22:10 | disposition home or self-care (01) ==
LOC: JER 15:07
DX: K59.00 Constipation, unspecified (principal)
CPT/HCPCS: 36415; 74176-TC; 80053; 82962; 83735; 85025; 99284-25

== ENCOUNTER 2021-08-28 14:04 | Emergency (ER) | payer OTHER ==
[2021-08-28 14:29] VITALS: BP 119/67; PULSE 74; TEMP 97.4; BMI 21.4
== END 2021-08-28 15:04 | disposition home or self-care (01) ==
LOC: JER 14:04 → JERFT 14:04
DX: K51.20 Ulcerative (chronic) proctitis without complications (principal)
CPT/HCPCS: 36415; 87491; 87591; 99283-25

== ENCOUNTER 2021-09-29 22:49 | Emergency (ER) | payer OTHER ==
[2021-09-29 22:53] VITALS: TEMP 97.8; BMI 21.4
[2021-09-29] MEDS ORDERED: LACTULOSE 20 GM/30 ML UDC (FOR ORAL USE ONLY) PO ONE (23:04)
[2021-09-29] MEDS ORDERED: LACTULOSE 20 GM/30 ML UDC (FOR ORAL USE ONLY) ONE (23:30)
[2021-09-30 00:53] LABS: EPI CELLS 0 /uL (0-25.1); HYALINE CASTS 0 /uL (0-3.1); URINE APPEARANCE CLEAR; URINE BACTERIA 35 /uL (0-1359); URINE BILIRUBIN NEGATIVE (NEGATIVE); URINE COLOR YELLOW; URINE GLUCOSE (UA) 2+ (NEGATIVE); URINE KETONE NEGATIVE (NEGATIVE); URINE LEUK ESTERASE NEGATIVE (NEGATIVE); URINE NITRITE NEGATIVE (NEGATIVE); URINE PROTEIN 1+ (NEGATIVE); URINE RBC 6 /uL (0-23.9); URINE UROBILINOGEN 0.2 mg/dL (0.2-1.0); URINE WBC 2 /uL (0-25.8)
[2021-09-30 02:39] VITALS: BP 163/82; PULSE 89
== END 2021-09-30 02:40 | disposition home or self-care (01) ==
LOC: JER 22:49
DX: R33.9 Retention of urine, unspecified (principal); K59.01 Slow transit constipation
CPT/HCPCS: 81003; 87086; 99283-25

== ENCOUNTER 2021-11-01 13:43 | Inpatient (IN) | payer OTHER ==
[2021-11-01] MEDS ORDERED: SODIUM CHLORIDE 1,000 ML IV SCH (14:00)
[2021-11-01 14:29] LABS: BASO % 0.4 % (0-2.0); EOS % 4.4 % (0-4.5); HEMATOCRIT 39.4 % (35.4-49); HEMOGLOBIN 13.3 GM/dL (11.7-16.9); LYMPH % 35.2 % (8-40); MCH 32.4 pg (25.7-33.7); MCHC 33.7 g/dl (32.0-35.9); MEAN CELL VOLUME 96.1 fl (80-96); MEAN PLT VOLUME 7.7 fl (7.5-11.1); MONO % 8.3 % (3.8-10.2); NEUT % 51.7 % (42.8-82.8); PLATELET COUNT 233 10^3/uL (134-434); RDW 13.2 % (11.9-15.9); WHITE BLOOD COUNT 6.3 K/mm3 (4.0-10.0)
[2021-11-01 14:42] LABS: INR 1.12 (0.83-1.09); PROTHROMBIN TIME (PATIENT) 12.9 SEC (9.7-13.0)
[2021-11-01 14:45] LABS: ACTIVATED PTT 29.3 SECONDS (25.2-36.5)
[2021-11-01 15:21] LABS: ALBUMIN 3.6 g/dl (3.4-5.0); BLOOD UREA NITROGEN 26.9 mg/dL (7-18); CALCIUM 9.6 mg/dL (8.5-10.1)
[2021-11-01 15:23] LABS: CREATININE 2.1 mg/dL (0.55-1.3)
[2021-11-01 15:24] LABS: BILIRUBIN,TOTAL 0.6 mg/dL (0.2-1); TOT PROT 7.2 g/dl (6.4-8.2)
[2021-11-01] MEDS ORDERED: ASPIRIN 81 MG CHEWABLE TABLETS PO ONE (15:41)
[2021-11-01] MEDS ORDERED: ASPIRIN 81 MG CHEWABLE TABLETS ONE (15:44)
[2021-11-01] MEDS: SODIUM CHLORIDE 1,000 ML IV SCH (18:17)
[2021-11-01 21:24] LABS: EPI CELLS 5 /uL (0-25.1); HYALINE CASTS 2 /uL (0-3.1); URINE APPEARANCE CLEAR; URINE BACTERIA 1 /uL (0-1359); URINE BILIRUBIN NEGATIVE (NEGATIVE); URINE COLOR YELLOW; URINE GLUCOSE (UA) NEGATIVE (NEGATIVE); URINE KETONE TRACE (NEGATIVE); URINE LEUK ESTERASE NEGATIVE (NEGATIVE); URINE NITRITE NEGATIVE (NEGATIVE); URINE PROTEIN 1+ (NEGATIVE); URINE RBC 39 /uL (0-23.9); URINE UROBILINOGEN 0.2 mg/dL (0.2-1.0); URINE WBC 12 /uL (0-25.8)
[2021-11-01] MEDS ORDERED: PATIENT'S OWN MEDICATION (NON-FORMULARY) (Alirocumab [Praluent Pen] 75 MG/ML Pen.Injctr) IJ SCH (21:30)
[2021-11-01] MEDS: INSULIN SLIDING SCALE (NOVOLOG) 1 VIAL SQ SCH (23:13)
[2021-11-02] MEDS: INSULIN SLIDING SCALE (NOVOLOG) 1 VIAL SQ SCH ×4 (06:37→21:41)
[2021-11-02 07:10] LABS: BASO % 0.6 % (0-2.0); EOS % 4.3 % (0-4.5); HEMATOCRIT 39.6 % (35.4-49); HEMOGLOBIN 13.5 GM/dL (11.7-16.9); LYMPH % 31.2 % (8-40); MCH 32.3 pg (25.7-33.7); MCHC 34.1 g/dl (32.0-35.9); MEAN CELL VOLUME 94.6 fl (80-96); MEAN PLT VOLUME 7.6 fl (7.5-11.1); MONO % 9.2 % (3.8-10.2); NEUT % 54.7 % (42.8-82.8); PLATELET COUNT 240 10^3/uL (134-434); RBC 4.19 M/mm3 (4.00-5.60); WHITE BLOOD COUNT 8.5 K/mm3 (4.0-10.0)
[2021-11-02 07:34] LABS: ALBUMIN 3.6 g/dl (3.4-5.0); BLOOD UREA NITROGEN 26.5 mg/dL (7-18); CALCIUM 8.8 mg/dL (8.5-10.1)
[2021-11-02 07:37] LABS: CREATININE 1.7 mg/dL (0.55-1.3)
[2021-11-02 07:39] LABS: BILIRUBIN,TOTAL 0.7 mg/dL (0.2-1); TOT PROT 7.1 g/dl (6.4-8.2)
[2021-11-02] MEDS: ENOXAPARIN NA (PORCINE) 30 MG/0.3 ML DISP.SYRIN SQ SCH (09:57)
[2021-11-02] MEDS ORDERED: ATORVASTATIN CA 40 MG TABLET (FP) PO ONE (10:00)
[2021-11-02] MEDS: DOLUTEGRAVIR SODIUM 50 MG TABLET (NON-FORMULARY) PO SCH (10:38)
[2021-11-02] MEDS: DARUNAVIR 800 MG/COBICISTAT 150MG TABLET PO SCH (10:38)
[2021-11-02 10:43] LABS: N-TERMINAL BNP 1533.2 pg/ml (5-450)
[2021-11-02] MEDS: SODIUM CHLORIDE 1,000 ML IV SCH (18:11)
[2021-11-02] MEDS: ABACAVIR SULFATE 300 MG TABLET PO SCH (19:49)
[2021-11-03] MEDS: INSULIN SLIDING SCALE (NOVOLOG) 1 VIAL SQ SCH ×4 (06:25→21:25)
[2021-11-03 08:22] LABS: CALCIUM 8.1 mg/dL (8.5-10.1)
[2021-11-03 08:23] LABS: BLOOD UREA NITROGEN 23.2 mg/dL (7-18)
[2021-11-03 08:26] LABS: CREATININE 1.6 mg/dL (0.55-1.3)
[2021-11-03] MEDS: DOLUTEGRAVIR SODIUM 50 MG TABLET (NON-FORMULARY) PO SCH (09:47)
[2021-11-03] MEDS: DARUNAVIR 800 MG/COBICISTAT 150MG TABLET PO SCH (09:47)
[2021-11-03] MEDS: ENOXAPARIN NA (PORCINE) 30 MG/0.3 ML DISP.SYRIN SQ SCH (09:47)
[2021-11-03] MEDS: ASPIRIN 81 MG CHEWABLE TABLETS PO SCH (09:47)
[2021-11-03] MEDS: ABACAVIR SULFATE 300 MG TABLET PO SCH (09:47)
[2021-11-03] MEDS ORDERED: POTASSIUM CHLORIDE 10 MEQ in SODIUM CHLORIDE 1,000 ML IV SCH (12:00)
[2021-11-04] MEDS: INSULIN SLIDING SCALE (NOVOLOG) 1 VIAL SQ SCH ×4 (06:14→21:44)
[2021-11-04 07:46] LABS: BLOOD UREA NITROGEN 21.3 mg/dL (7-18); CALCIUM 8.6 mg/dL (8.5-10.1)
[2021-11-04 07:47] LABS: ALBUMIN 3.4 g/dl (3.4-5.0)
[2021-11-04 07:50] LABS: CREATININE 1.5 mg/dL (0.55-1.3)
[2021-11-04 07:51] LABS: BILIRUBIN,TOTAL 0.6 mg/dL (0.2-1); TOT PROT 6.9 g/dl (6.4-8.2)
[2021-11-04] MEDS: ASPIRIN 81 MG CHEWABLE TABLETS PO SCH (10:07)
[2021-11-04] MEDS: ENOXAPARIN NA (PORCINE) 30 MG/0.3 ML DISP.SYRIN SQ SCH (10:07)
[2021-11-04] MEDS: DARUNAVIR 800 MG/COBICISTAT 150MG TABLET PO SCH (10:08)
[2021-11-04] MEDS: DOLUTEGRAVIR SODIUM 50 MG TABLET (NON-FORMULARY) PO SCH (10:08)
[2021-11-04] MEDS: ABACAVIR SULFATE 300 MG TABLET PO SCH (10:08)
[2021-11-04] MEDS ORDERED: POTASSIUM CHLORIDE TABS 20 MEQ TABLET.ER (FP) PO ONE (11:31)
[2021-11-05] MEDS: INSULIN SLIDING SCALE (NOVOLOG) 1 VIAL SQ SCH ×4 (06:18→21:58)
[2021-11-05 08:21] LABS: ALBUMIN 3.4 g/dl (3.4-5.0); BLOOD UREA NITROGEN 20.8 mg/dL (7-18); MAGNESIUM 2.3 mg/dL (1.8-2.4)
[2021-11-05 08:24] LABS: CREATININE 1.5 mg/dL (0.55-1.3)
[2021-11-05 08:25] LABS: BILIRUBIN,TOTAL 0.8 mg/dL (0.2-1); TOT PROT 7.3 g/dl (6.4-8.2)
[2021-11-05] MEDS: DOLUTEGRAVIR SODIUM 50 MG TABLET (NON-FORMULARY) PO SCH (09:03)
[2021-11-05] MEDS: ENOXAPARIN NA (PORCINE) 30 MG/0.3 ML DISP.SYRIN SQ SCH (09:03)
[2021-11-05] MEDS: ASPIRIN 81 MG CHEWABLE TABLETS PO SCH (09:03)
[2021-11-05] MEDS: DARUNAVIR 800 MG/COBICISTAT 150MG TABLET PO SCH (09:03)
[2021-11-05] MEDS: ABACAVIR SULFATE 300 MG TABLET PO SCH (09:04)
[2021-11-05 15:29] VITALS: BMI 18.1
[2021-11-05] MEDS: DEXTROSE 5%-0.45% SALINE 1,000 ML IV SCH (17:17)
[2021-11-05] MEDS: ATORVASTATIN CA 40 MG TABLET (FP) PO SCH (21:52)
[2021-11-06] MEDS: DEXTROSE 5%-0.45% SALINE 1,000 ML IV SCH ×2 (06:22→17:11)
[2021-11-06] MEDS: INSULIN SLIDING SCALE (NOVOLOG) 1 VIAL SQ SCH ×4 (06:22→21:19)
[2021-11-06 08:13] LABS: BASO % 0.3 % (0-2.0); EOS % 0.6 % (0-4.5); HEMATOCRIT 41.9 % (35.4-49); HEMOGLOBIN 14.1 GM/dL (11.7-16.9); LYMPH % 16.7 % (8-40); MCH 31.9 pg (25.7-33.7); MCHC 33.6 g/dl (32.0-35.9); MEAN CELL VOLUME 94.8 fl (80-96); MEAN PLT VOLUME 7.5 fl (7.5-11.1); MONO % 7.3 % (3.8-10.2); NEUT % 75.1 % (42.8-82.8); PLATELET COUNT 228 10^3/uL (134-434); RBC 4.41 M/mm3 (4.00-5.60); RDW 12.9 % (11.9-15.9); WHITE BLOOD COUNT 12.5 K/mm3 (4.0-10.0)
[2021-11-06 08:36] LABS: ALBUMIN 3.3 g/dl (3.4-5.0); CALCIUM 8.6 mg/dL (8.5-10.1)
[2021-11-06 08:39] LABS: CREATININE 1.4 mg/dL (0.55-1.3)
[2021-11-06 08:40] LABS: BILIRUBIN,TOTAL 0.8 mg/dL (0.2-1); TOT PROT 7.2 g/dl (6.4-8.2)
[2021-11-06] MEDS: ASPIRIN 81 MG CHEWABLE TABLETS PO SCH (10:54)
[2021-11-06] MEDS: ENOXAPARIN NA (PORCINE) 30 MG/0.3 ML DISP.SYRIN SQ SCH (10:54)
[2021-11-06] MEDS: DARUNAVIR 800 MG/COBICISTAT 150MG TABLET PO SCH (10:55)
[2021-11-06] MEDS: DOLUTEGRAVIR SODIUM 50 MG TABLET (NON-FORMULARY) PO SCH (10:55)
[2021-11-06] MEDS: ABACAVIR SULFATE 300 MG TABLET PO SCH (10:56)
[2021-11-06] MEDS: ATORVASTATIN CA 40 MG TABLET (FP) PO SCH (21:19)
[2021-11-07] MEDS: DEXTROSE 5%-0.45% SALINE 1,000 ML IV SCH (05:27)
[2021-11-07] MEDS: INSULIN SLIDING SCALE (NOVOLOG) 1 VIAL SQ SCH ×4 (06:00→21:31)
[2021-11-07 08:08] LABS: BASO % 0.3 % (0-2.0); EOS % 2.4 % (0-4.5); HEMATOCRIT 39.6 % (35.4-49); HEMOGLOBIN 13.6 GM/dL (11.7-16.9); LYMPH % 21.6 % (8-40); MCH 32.2 pg (25.7-33.7); MCHC 34.3 g/dl (32.0-35.9); MEAN CELL VOLUME 94.2 fl (80-96); MEAN PLT VOLUME 7.7 fl (7.5-11.1); MONO % 7.8 % (3.8-10.2); NEUT % 67.9 % (42.8-82.8); PLATELET COUNT 244 10^3/uL (134-434); RDW 12.9 % (11.9-15.9); WHITE BLOOD COUNT 10.3 K/mm3 (4.0-10.0)
[2021-11-07 08:28] LABS: CALCIUM 8.8 mg/dL (8.5-10.1)
[2021-11-07 08:32] LABS: CREATININE 1.4 mg/dL (0.55-1.3)
[2021-11-07 08:34] LABS: BILIRUBIN,TOTAL 0.8 mg/dL (0.2-1)
[2021-11-07 08:35] LABS: TOT PROT 6.8 g/dl (6.4-8.2)
[2021-11-07] MEDS: ASPIRIN 81 MG CHEWABLE TABLETS PO SCH (09:58)
[2021-11-07] MEDS: ENOXAPARIN NA (PORCINE) 30 MG/0.3 ML DISP.SYRIN SQ SCH (09:59)
[2021-11-07] MEDS: DOLUTEGRAVIR SODIUM 50 MG TABLET (NON-FORMULARY) PO SCH (10:02)
[2021-11-07] MEDS: DARUNAVIR 800 MG/COBICISTAT 150MG TABLET PO SCH (10:02)
[2021-11-07] MEDS: ABACAVIR SULFATE 300 MG TABLET PO SCH (10:02)
[2021-11-07] MEDS: ATORVASTATIN CA 40 MG TABLET (FP) PO SCH (21:29)
[2021-11-08] MEDS: INSULIN SLIDING SCALE (NOVOLOG) 1 VIAL SQ SCH ×4 (06:16→21:56)
[2021-11-08 09:48] LABS: BLOOD UREA NITROGEN 26.8 mg/dL (7-18)
[2021-11-08 09:52] LABS: CREATININE 1.4 mg/dL (0.55-1.3)
[2021-11-08] MEDS: DOLUTEGRAVIR SODIUM 50 MG TABLET (NON-FORMULARY) PO SCH (10:14)
[2021-11-08] MEDS: ABACAVIR SULFATE 300 MG TABLET PO SCH (10:14)
[2021-11-08] MEDS: DARUNAVIR 800 MG/COBICISTAT 150MG TABLET PO SCH (10:14)
[2021-11-08] MEDS: ENOXAPARIN NA (PORCINE) 30 MG/0.3 ML DISP.SYRIN SQ SCH (10:14)
[2021-11-08] MEDS: ASPIRIN 81 MG CHEWABLE TABLETS PO SCH (10:14)
[2021-11-08] MEDS: DOCUSATE SODIUM 100 MG CAPSULE (FP) PO SCH ×2 (15:55→21:56)
[2021-11-08] MEDS: ATORVASTATIN CA 40 MG TABLET (FP) PO SCH (21:56)
[2021-11-09] MEDS ORDERED: MELATONIN 5 MG TABLETS PO PRN (01:08)
[2021-11-09] MEDS ORDERED: MELATONIN 5 MG TABLETS PO ONE (01:45)
[2021-11-09] MEDS: INSULIN SLIDING SCALE (NOVOLOG) 1 VIAL SQ SCH ×4 (06:03→21:20)
[2021-11-09] MEDS: ASPIRIN 81 MG CHEWABLE TABLETS PO SCH (10:38)
[2021-11-09] MEDS: ABACAVIR SULFATE 300 MG TABLET PO SCH (10:38)
[2021-11-09] MEDS: DOLUTEGRAVIR SODIUM 50 MG TABLET (NON-FORMULARY) PO SCH (10:39)
[2021-11-09] MEDS: DARUNAVIR 800 MG/COBICISTAT 150MG TABLET PO SCH (10:39)
[2021-11-09] MEDS: DOCUSATE SODIUM 100 MG CAPSULE (FP) PO SCH ×2 (10:47→21:21)
[2021-11-09 14:40] LABS: HEMATOCRIT 39.7 % (35.4-49); HEMOGLOBIN 13.3 GM/dL (11.7-16.9); MCH 31.6 pg (25.7-33.7); MCHC 33.6 g/dl (32.0-35.9); MEAN CELL VOLUME 93.9 fl (80-96); MEAN PLT VOLUME 7.6 fl (7.5-11.1); PLATELET COUNT 271 10^3/uL (134-434); RBC 4.22 M/mm3 (4.00-5.60); RDW 12.7 % (11.9-15.9); WHITE BLOOD COUNT 10.3 K/mm3 (4.0-10.0)
[2021-11-09 15:06] LABS: CALCIUM 9.5 mg/dL (8.5-10.1)
[2021-11-09 15:10] LABS: CREATININE 1.5 mg/dL (0.55-1.3)
[2021-11-09 15:12] LABS: BILIRUBIN,TOTAL 0.4 mg/dL (0.2-1); TOT PROT 6.7 g/dl (6.4-8.2)
[2021-11-09] MEDS: INSULIN (LEVEMIR) 100 UNITS/ML UNITS SQ SCH (21:20)
[2021-11-09] MEDS: ATORVASTATIN CA 40 MG TABLET (FP) PO SCH (21:21)
[2021-11-10] MEDS: INSULIN SLIDING SCALE (NOVOLOG) 1 VIAL SQ SCH ×4 (06:33→22:14)
[2021-11-10] MEDS: DOLUTEGRAVIR SODIUM 50 MG TABLET (NON-FORMULARY) PO SCH (09:10)
[2021-11-10] MEDS: ABACAVIR SULFATE 300 MG TABLET PO SCH (09:10)
[2021-11-10] MEDS: ASPIRIN 81 MG CHEWABLE TABLETS PO SCH (09:10)
[2021-11-10] MEDS: DARUNAVIR 800 MG/COBICISTAT 150MG TABLET PO SCH (09:10)
[2021-11-10] MEDS: DOCUSATE SODIUM 100 MG CAPSULE (FP) PO SCH ×2 (09:10→22:14)
[2021-11-10] MEDS: POLYETHYLENE GLYCOL (HEALTHYLAX) 3350 17 GM PACKET PO SCH (11:24)
[2021-11-10] MEDS ORDERED: ACETAMINOPHEN 1000 MG/100 ML BAG IVPB PRN (14:46)
[2021-11-10] MEDS: NYSTATIN 500,000 UNITS/5 ML SUSPENSION PO SCH ×2 (16:58→17:01)
[2021-11-10] MEDS: LIDOCAINE 5% TOPICAL PATCH TP SCH (18:22)
[2021-11-10] MEDS: CYCLOBENZAPRINE HCL 5 MG TABLET PO SCH (20:41)
[2021-11-10] MEDS: LIDOCAINE PATCH REMOVAL MC SCH (22:14)
[2021-11-10] MEDS: ATORVASTATIN CA 40 MG TABLET (FP) PO SCH (22:14)
[2021-11-10] MEDS: INSULIN (LEVEMIR) 100 UNITS/ML UNITS SQ SCH (22:14)
[2021-11-11] MEDS: NYSTATIN 500,000 UNITS/5 ML SUSPENSION PO SCH ×6 (01:42→23:34)
[2021-11-11] MEDS: INSULIN SLIDING SCALE (NOVOLOG) 1 VIAL SQ SCH ×4 (06:05→22:16)
[2021-11-11 08:02] LABS: BASO % 0.3 % (0-2.0); EOS % 2.4 % (0-4.5); HEMATOCRIT 41.3 % (35.4-49); HEMOGLOBIN 14.1 GM/dL (11.7-16.9); LYMPH % 19.1 % (8-40); MCHC 34.1 g/dl (32.0-35.9); MEAN CELL VOLUME 93.8 fl (80-96); MEAN PLT VOLUME 8.1 fl (7.5-11.1); MONO % 9.9 % (3.8-10.2); NEUT % 68.3 % (42.8-82.8); PLATELET COUNT 284 10^3/uL (134-434); RDW 12.8 % (11.9-15.9)
[2021-11-11 08:25] LABS: ALBUMIN 3.2 g/dl (3.4-5.0); BLOOD UREA NITROGEN 28.3 mg/dL (7-18)
[2021-11-11 08:28] LABS: CREATININE 1.4 mg/dL (0.55-1.3)
[2021-11-11 08:29] LABS: TOT PROT 7.4 g/dl (6.4-8.2)
[2021-11-11 08:30] LABS: BILIRUBIN,TOTAL 0.7 mg/dL (0.2-1)
[2021-11-11] MEDS: DOCUSATE SODIUM 100 MG CAPSULE (FP) PO SCH ×2 (09:49→21:20)
[2021-11-11] MEDS: ASPIRIN 81 MG CHEWABLE TABLETS PO SCH (09:49)
[2021-11-11] MEDS: LIDOCAINE 5% TOPICAL PATCH TP SCH (09:50)
[2021-11-11] MEDS: DARUNAVIR 800 MG/COBICISTAT 150MG TABLET PO SCH (09:50)
[2021-11-11] MEDS: ABACAVIR SULFATE 300 MG TABLET PO SCH (09:50)
[2021-11-11] MEDS: DOLUTEGRAVIR SODIUM 50 MG TABLET (NON-FORMULARY) PO SCH (09:50)
[2021-11-11] MEDS: POLYETHYLENE GLYCOL (HEALTHYLAX) 3350 17 GM PACKET PO SCH (09:50)
[2021-11-11] MEDS ORDERED: METOPROLOL TARTRATE 5 MG/5 ML VIAL IVPUSH ONE (17:57)
[2021-11-11] MEDS ORDERED: METOPROLOL TARTRATE 5 MG/5 ML VIAL ONE (17:58)
[2021-11-11] MEDS ORDERED: ACETAMINOPHEN 1000 MG/100 ML BAG IVPB ONE (18:12)
[2021-11-11 18:32] LABS: HEMATOCRIT 47.3 % (35.4-49); MCH 31.9 pg (25.7-33.7); MCHC 33.9 g/dl (32.0-35.9); MEAN CELL VOLUME 94.3 fl (80-96); MEAN PLT VOLUME 7.6 fl (7.5-11.1); PLATELET COUNT 357 10^3/uL (134-434); RBC 5.01 M/mm3 (4.00-5.60); RDW 12.9 % (11.9-15.9); WHITE BLOOD COUNT 10.2 K/mm3 (4.0-10.0)
[2021-11-11] MEDS ORDERED: PIPERACILLIN/TAZOB 3.375 GM 3.375 GM in DEXTROSE 5%-WATER - 50 ML IVPB ONE (18:40)
[2021-11-11] MEDS ORDERED: VANCOMYCIN 1 GM in D5W (PRE-DOCKED) 1,000 MG/250 ML IVPB ONE (18:40)
[2021-11-11] MEDS ORDERED: SODIUM CHLORIDE 1,000 ML IV STA ×2 (18:42→18:51)
[2021-11-11] MEDS ORDERED: ACETAMINOPHEN 1000 MG/100 ML BAG IVPB PRN (18:42)
[2021-11-11] MEDS ORDERED: SODIUM CHLORIDE 500 ML IV STA (18:45)
[2021-11-11 18:56] LABS: ALBUMIN 3.2 g/dl (3.4-5.0); BLOOD UREA NITROGEN 35.2 mg/dL (7-18); CALCIUM 9.7 mg/dL (8.5-10.1); MAGNESIUM 2.3 mg/dL (1.8-2.4)
[2021-11-11 18:59] LABS: PHOSPHOROUS 3.4 mg/dL (2.5-4.9)
[2021-11-11 19:00] LABS: CREATININE 1.7 mg/dL (0.55-1.3)
[2021-11-11 19:01] LABS: EPI CELLS 2 /uL (0-25.1); HYALINE CASTS 0 /uL (0-3.1); URINE APPEARANCE CLOUDY; URINE BACTERIA 1 /uL (0-1359); URINE BILIRUBIN NEGATIVE (NEGATIVE); URINE COLOR YELLOW; URINE GLUCOSE (UA) 2+ (NEGATIVE); URINE KETONE NEGATIVE (NEGATIVE); URINE LEUK ESTERASE NEGATIVE (NEGATIVE); URINE NITRITE NEGATIVE (NEGATIVE); URINE PROTEIN 2+ (NEGATIVE); URINE RBC 22 /uL (0-23.9); URINE UROBILINOGEN 0.2 mg/dL (0.2-1.0); URINE WBC 1 /uL (0-25.8)
[2021-11-11 19:01] LABS: BILIRUBIN,TOTAL 1.4 mg/dL (0.2-1); TOT PROT 7.7 g/dl (6.4-8.2)
[2021-11-11] MEDS ORDERED: MELATONIN 5 MG TABLETS PO PRN (19:08)
[2021-11-11] MEDS ORDERED: SODIUM CHLORIDE 250 ML IV ONE (19:30)
[2021-11-11] MEDS ORDERED: DEXTROSE 5%-0.45% SALINE 1,000 ML IV SCH (19:30)
[2021-11-11 19:42] LABS: ANISOCYTOSIS 0; MACROCYTOSIS 0; PLATELET ESTIMATE NORMAL
[2021-11-11 20:01] LABS: ARTERIAL BLD GAS O2 SATURATION 86.8 % (95-98); ARTERIAL BLOOD GAS BASE EXCESS -1.4 mmol/L (-2-2); ARTERIAL BLOOD GAS PO2 50.6 mmHg (80-100); ARTERIAL BLOOD GAS pH 7.419 (7.350-7.450)
[2021-11-11 20:03] LABS: ALLENS TEST POSITIVE; VENT MODE PSV
[2021-11-11 20:04] LABS: VENT RATE 14
[2021-11-11] MEDS ORDERED: ENOXAPARIN NA (PORCINE) 30 MG/0.3 ML DISP.SYRIN SQ SCH (20:20)
[2021-11-11] MEDS ORDERED: DEXTROSE 5%-WATER - 50 ML IVPB ONE (20:31)
[2021-11-11] MEDS ORDERED: PIPERACILLIN/TAZOBACTAM 3.375 GM VIAL IVPB ONE (20:31)
[2021-11-11] MEDS: CYCLOBENZAPRINE HCL 5 MG TABLET PO SCH (20:51)
[2021-11-11] MEDS: LIDOCAINE PATCH REMOVAL MC SCH (21:20)
[2021-11-11] MEDS: ATORVASTATIN CA 40 MG TABLET (FP) PO SCH (21:20)
[2021-11-11] MEDS ORDERED: INSULIN (LEVEMIR) 100 UNITS/ML UNITS SQ SCH (22:00)
[2021-11-11 23:47] LABS: ARTERIAL BLD GAS O2 SATURATION 86.3 % (95-98); ARTERIAL BLOOD GAS BASE EXCESS -2.2 mmol/L (-2-2); ARTERIAL BLOOD GAS PO2 53.1 mmHg (80-100); ARTERIAL BLOOD GAS pH 7.361 (7.350-7.450)
[2021-11-11 23:48] LABS: ALLENS TEST POSITIVE; VENT MODE PSV; VENT RATE 14
[2021-11-12] MEDS ORDERED: PIPERACILLIN/TAZOBACTAM 3.375 GM VIAL IVPB ONE ×2 (01:00→09:11)
[2021-11-12] MEDS ORDERED: DEXTROSE 5%-WATER - 50 ML IVPB ONE ×3 (01:00→17:07)
[2021-11-12] MEDS ORDERED: ENOXAPARIN NA (PORCINE) 60 MG/0.6 ML DISP.SYRIN SQ SCH ×2 (01:15→12:00)
[2021-11-12] MEDS ORDERED: ENOXAPARIN NA (PORCINE) 30 MG/0.3 ML DISP.SYRIN SQ ONE (01:19)
[2021-11-12 01:45] LABS: LACTIC ACID 8.8 mmol/L (0.4-2.0)
[2021-11-12] MEDS: PIPERACILLIN/TAZOB 3.375 GM 3.375 GM in DEXTROSE 5%-WATER - 50 ML IVPB SCH ×2 (01:52→09:14)
[2021-11-12 01:53] LABS: ARTERIAL BLD GAS O2 SATURATION 83.9 % (95-98); ARTERIAL BLOOD GAS BASE EXCESS -4.1 mmol/L (-2-2); ARTERIAL BLOOD GAS PO2 54.8 mmHg (80-100); ARTERIAL BLOOD GAS pH 7.271 (7.350-7.450)
[2021-11-12 01:54] LABS: ALLENS TEST POSITIVE
[2021-11-12] MEDS ORDERED: MAGNESIUM SULF 50% (8.12 MEQ/2 ML-1 GM VIAL) ONE (02:41)
[2021-11-12] MEDS ORDERED: MAGNESIUM SULF 50% (8.12 MEQ/2 ML-1 GM VIAL) IVPB ONE (02:57)
[2021-11-12] MEDS ORDERED: SODIUM CHLORIDE 500 ML IV STA (02:59)
[2021-11-12] MEDS ORDERED: LACTATED RINGERS SOLUTION 1000 ML INFUS.BAG IV ONE (03:03)
[2021-11-12] MEDS ORDERED: NOREPINEPHRINE BITARTRATE 4 MG/4 ML ML IV ONE (04:13)
[2021-11-12] MEDS: NOREPINEPHRINE D5W PREMIX 16,000 MCG/500 ML BAG IVPB SCH (04:15)
[2021-11-12] MEDS: FENTANYL NS IVPB 500 MCG/100 ML BAG IVPB SCH ×4 (04:30→19:20)
[2021-11-12 05:57] LABS: ARTERIAL BLD GAS O2 SATURATION 88.5 % (95-98); ARTERIAL BLOOD GAS BASE EXCESS -6.1 mmol/L (-2-2); ARTERIAL BLOOD GAS PO2 72.2 mmHg (80-100)
[2021-11-12 06:02] LABS: VENT MODE V-A/C; VENT RATE 14
[2021-11-12 06:08] LABS: ARTERIAL BLOOD GAS pH 7.132 (7.350-7.450)
[2021-11-12 07:30] LABS: HEMATOCRIT 42.6 % (35.4-49); MCH 31.9 pg (25.7-33.7); MCHC 32.7 g/dl (32.0-35.9); MEAN CELL VOLUME 97.4 fl (80-96); MEAN PLT VOLUME 8.2 fl (7.5-11.1); PLATELET COUNT 319 10^3/uL (134-434); RBC 4.37 M/mm3 (4.00-5.60); RDW 13.6 % (11.9-15.9)
[2021-11-12 07:34] LABS: MAGNESIUM 3.1 mg/dL (1.8-2.4)
[2021-11-12] MEDS: NYSTATIN 500,000 UNITS/5 ML SUSPENSION PO SCH ×3 (07:36→18:08)
[2021-11-12] MEDS: INSULIN SLIDING SCALE (NOVOLOG) 1 VIAL SQ SCH ×4 (07:36→21:38)
[2021-11-12 07:37] LABS: PHOSPHOROUS 7.3 mg/dL (2.5-4.9)
[2021-11-12 07:39] LABS: BILIRUBIN,TOTAL 1.1 mg/dL (0.2-1); TOT PROT 6.4 g/dl (6.4-8.2)
[2021-11-12] MEDS ORDERED: INSULIN (LEVEMIR) 100 UNITS/ML UNITS SQ SCH (07:39)
[2021-11-12] MEDS: MIDAZOLAM IN 0.9 % SOD.CHLORID 100 MG/100 ML PLAST..BAG IVPB SCH ×2 (07:41→19:22)
[2021-11-12 08:14] LABS: ALBUMIN 2.4 g/dl (3.4-5.0)
[2021-11-12 08:15] LABS: LACTIC ACID 5.4 mmol/L (0.4-2.0)
[2021-11-12] MEDS: ENOXAPARIN NA (PORCINE) 60 MG/0.6 ML DISP.SYRIN SQ SCH ×2 (09:13→11:14)
[2021-11-12] MEDS: POLYETHYLENE GLYCOL (HEALTHYLAX) 3350 17 GM PACKET PO SCH (09:24)
[2021-11-12] MEDS: ASPIRIN 81 MG CHEWABLE TABLETS PO SCH (09:24)
[2021-11-12] MEDS: DOCUSATE SODIUM 100 MG CAPSULE (FP) PO SCH ×2 (09:24→21:37)
[2021-11-12] MEDS ORDERED: VECURONIUM BROMIDE 20 MG/20 ML VIAL ONE (09:48)
[2021-11-12] MEDS ORDERED: VANCOMYCIN 1 GM in D5W (PRE-DOCKED) 1,000 MG/250 ML IVPB SCH (10:00)
[2021-11-12] MEDS: SODIUM CHLORIDE 1,000 ML IV SCH ×2 (10:00→11:05)
[2021-11-12] MEDS: MUPIROCIN 2% TOPICAL OINTMENT FOR DECOLONIZATION NS SCH ×2 (10:14→21:36)
[2021-11-12] MEDS ORDERED: VECURONIUM BROMIDE 50 MG/50 ML VIAL IVPUSH ONE (10:38)
[2021-11-12] MEDS ORDERED: SODIUM CHLORIDE 0.9% 500 ML INFUS.BAG IV ONE (10:38)
[2021-11-12] MEDS ORDERED: MINERAL OIL/PETROLATUM,WHITE 3.5 GM TUBE OU PRN (10:38)
[2021-11-12] MEDS ORDERED: VASOPRESSIN 40 UNITS/100 ML BAG IV SCH (10:45)
[2021-11-12] MEDS: PANTOPRAZOLE SODIUM 40 MG VIAL IVPUSH SCH (11:07)
[2021-11-12] MEDS: LIDOCAINE 5% TOPICAL PATCH TP SCH (11:14)
[2021-11-12 11:34] LABS: ARTERIAL BLD GAS O2 SATURATION 98.7 % (95-98); ARTERIAL BLOOD GAS BASE EXCESS -8.9 mmol/L (-2-2); ARTERIAL BLOOD GAS PO2 187.9 mmHg (80-100)
[2021-11-12 11:35] LABS: ALLENS TEST POSITIVE
[2021-11-12 11:36] LABS: VENT MODE AC; VENT RATE 24
[2021-11-12 11:37] LABS: ARTERIAL BLOOD GAS pH 7.081 (7.350-7.450)
[2021-11-12] MEDS: VECURONIUM BROMIDE 100 MG/100 ML BAG IVPB SCH (11:43)
[2021-11-12] MEDS: SODIUM BICARBONATE 8.4% - 150 MEQ in DEXTROSE 5%-WATER - 950 ML IVPB SCH (12:30)
[2021-11-12 14:32] LABS: ARTERIAL BLD GAS O2 SATURATION 98.3 % (95-98); ARTERIAL BLOOD GAS PO2 151.5 mmHg (80-100); ARTERIAL BLOOD GAS pH 7.146 (7.350-7.450)
[2021-11-12 14:35] LABS: ALLENS TEST POSITIVE; VENT MODE A/C; VENT RATE 22
[2021-11-12] MEDS: SODIUM BICARBONATE 8.4% 50 MEQ/50 ML VIAL IVPUSH SCH ×2 (16:12→21:36)
[2021-11-12] MEDS ORDERED: PIPERACILLIN/TAZOBACTAM 2.25 GM VIAL IVPB ONE (17:07)
[2021-11-12] MEDS: PIPERACILLIN/TAZOB 2.25 GM 2.25 GM in DEXTROSE 5%-WATER - 50 ML IVPB SCH (17:13)
[2021-11-12 17:22] LABS: LACTIC ACID 5.1 mmol/L (0.4-2.0)
[2021-11-12 17:40] LABS: ANION GAP 15 MMOL/L (8-16); BLOOD UREA NITROGEN 48.3 mg/dL (7-18); CALCIUM 8.5 mg/dL (8.5-10.1); CHLORIDE 101 mmol/L (98-107); CO2 19 mmol/L (21-32); CREATININE 2.9 mg/dL (0.55-1.3); GLUCOSE,RANDOM 248 mg/dL (74-106); SODIUM 135 mmol/L (136-145)
[2021-11-12] MEDS ORDERED: ALBUTEROL SO4 0.083% IH SOL 2.5 MG/3 ML VIAL.NEB. NEB ONE (17:52)
[2021-11-12] MEDS ORDERED: CALCIUM GLUCONATE 10% - 1,000 MG/10 ML VIAL IVPUSH ONE (17:52)
[2021-11-12] MEDS ORDERED: INSULIN REGULAR HUMAN 100 UNITS/ML *VIAL IVPUSH ONE (17:52)
[2021-11-12] MEDS ORDERED: SODIUM ZIRCONIUM CYCLOSILICATE (LOKELMA) 5 GM PACKET PO ONE (17:53)
[2021-11-12] MEDS: ABACAVIR SULFATE 300 MG TABLET PO SCH (18:25)
[2021-11-12] MEDS: DOLUTEGRAVIR SODIUM 50 MG TABLET (NON-FORMULARY) PO SCH (18:26)
[2021-11-12] MEDS: DARUNAVIR 800 MG/COBICISTAT 150MG TABLET PO SCH (18:26)
[2021-11-12 19:55] LABS: ARTERIAL BLD GAS O2 SATURATION 99.3 % (95-98); ARTERIAL BLOOD GAS BASE EXCESS -2.4 mmol/L (-2-2); ARTERIAL BLOOD GAS pH 7.264 (7.350-7.450)
[2021-11-12 19:58] LABS: ALLENS TEST POSITIVE
[2021-11-12 19:59] LABS: VENT MODE A/C; VENT RATE 30
[2021-11-12] MEDS: CYCLOBENZAPRINE HCL 5 MG TABLET PO SCH (21:36)
[2021-11-12] MEDS: CHLORHEXIDINE GLUCONATE 4% CLEANSER FOR DECOLONIZATION TP SCH (21:37)
[2021-11-12] MEDS: LIDOCAINE PATCH REMOVAL MC SCH (21:37)
[2021-11-12] MEDS: HEPARIN NA (PORCINE) 5,000 UNITS/ML 1ML VIAL SQ SCH (21:37)
[2021-11-12] MEDS: ATORVASTATIN CA 40 MG TABLET (FP) PO SCH (21:38)
[2021-11-12 23:29] LABS: CHLORIDE 96 mmol/L (98-107); SODIUM 134 mmol/L (136-145)
[2021-11-12 23:30] LABS: CALCIUM 8.2 mg/dL (8.5-10.1)
[2021-11-12 23:31] LABS: BLOOD UREA NITROGEN 51.3 mg/dL (7-18); CO2 28 mmol/L (21-32); GLUCOSE,RANDOM 308 mg/dL (74-106)
[2021-11-12 23:36] LABS: ANION GAP 10 MMOL/L (8-16)
[2021-11-12 23:40] LABS: LACTIC ACID 6.2 mmol/L (0.4-2.0)
[2021-11-12] MEDS ORDERED: SODIUM CHLORIDE 1,000 ML IV SCH (23:45)
[2021-11-12] MEDS ORDERED: INSULIN (LEVEMIR) 100 UNITS/ML UNITS SQ ONE (23:46)
[2021-11-13] MEDS ORDERED: SODIUM ZIRCONIUM CYCLOSILICATE (LOKELMA) 5 GM PACKET PO ONE
[2021-11-13] MEDS: NYSTATIN 500,000 UNITS/5 ML SUSPENSION PO SCH ×4 (00:08→20:16)
[2021-11-13] MEDS ORDERED: PIPERACILLIN/TAZOBACTAM 2.25 GM VIAL IVPB ONE ×3 (00:21→15:54)
[2021-11-13] MEDS ORDERED: DEXTROSE 5%-WATER - 50 ML IVPB ONE ×3 (00:22→15:54)
[2021-11-13] MEDS: PIPERACILLIN/TAZOB 2.25 GM 2.25 GM in DEXTROSE 5%-WATER - 50 ML IVPB SCH ×3 (01:12→17:52)
[2021-11-13] MEDS: FENTANYL NS IVPB 500 MCG/100 ML BAG IVPB SCH ×5 (01:13→21:53)
[2021-11-13] MEDS: SODIUM BICARBONATE 8.4% 50 MEQ/50 ML VIAL IVPUSH SCH ×2 (02:47→09:40)
[2021-11-13 05:45] LABS: HEMATOCRIT 34.6 % (35.4-49); HEMOGLOBIN 11.5 GM/dL (11.7-16.9); MCH 31.7 pg (25.7-33.7); MCHC 33.2 g/dl (32.0-35.9); MEAN CELL VOLUME 95.5 fl (80-96); PLATELET COUNT 195 10^3/uL (134-434); RBC 3.63 M/mm3 (4.00-5.60); RDW 13.1 % (11.9-15.9); WHITE BLOOD COUNT 13.8 K/mm3 (4.0-10.0)
[2021-11-13] MEDS: INSULIN SLIDING SCALE (NOVOLOG) 1 VIAL SQ SCH ×4 (06:03→21:09)
[2021-11-13] MEDS: HEPARIN NA (PORCINE) 5,000 UNITS/ML 1ML VIAL SQ SCH ×3 (06:04→21:02)
[2021-11-13 06:12] LABS: BLOOD UREA NITROGEN 52.6 mg/dL (7-18); CALCIUM 7.4 mg/dL (8.5-10.1); MAGNESIUM 2.4 mg/dL (1.8-2.4)
[2021-11-13 06:15] LABS: CREATININE 3.1 mg/dL (0.55-1.3); PHOSPHOROUS 4.6 mg/dL (2.5-4.9)
[2021-11-13 06:17] LABS: BILIRUBIN,TOTAL 0.9 mg/dL (0.2-1); TOT PROT 5.1 g/dl (6.4-8.2)
[2021-11-13 06:22] LABS: ALBUMIN 1.7 g/dl (3.4-5.0); LACTIC ACID 4.3 mmol/L (0.4-2.0)
[2021-11-13] MEDS: NOREPINEPHRINE D5W PREMIX 16,000 MCG/500 ML BAG IVPB SCH ×2 (09:34→17:52)
[2021-11-13] MEDS: VECURONIUM BROMIDE 100 MG/100 ML BAG IVPB SCH (09:35)
[2021-11-13] MEDS: SODIUM BICARBONATE 8.4% - 150 MEQ in DEXTROSE 5%-WATER - 950 ML IVPB SCH ×2 (09:38)
[2021-11-13] MEDS: DOCUSATE SODIUM 100 MG CAPSULE (FP) PO SCH ×2 (09:41→21:09)
[2021-11-13] MEDS: POLYETHYLENE GLYCOL (HEALTHYLAX) 3350 17 GM PACKET PO SCH (09:41)
[2021-11-13] MEDS: ASPIRIN 81 MG CHEWABLE TABLETS PO SCH (09:41)
[2021-11-13] MEDS: DARUNAVIR 800 MG/COBICISTAT 150MG TABLET PO SCH (09:43)
[2021-11-13] MEDS: LIDOCAINE 5% TOPICAL PATCH TP SCH (09:43)
[2021-11-13] MEDS: DOLUTEGRAVIR SODIUM 50 MG TABLET (NON-FORMULARY) PO SCH (09:44)
[2021-11-13] MEDS: PANTOPRAZOLE SODIUM 40 MG VIAL IVPUSH SCH (09:44)
[2021-11-13] MEDS: ABACAVIR SULFATE 300 MG TABLET PO SCH (09:45)
[2021-11-13] MEDS ORDERED: VANCOMYCIN 1 GM in D5W (PRE-DOCKED) 1,000 MG/250 ML IVPB SCH (10:00)
[2021-11-13 10:14] LABS: ARTERIAL BLD GAS O2 SATURATION 95.5 % (95-98); ARTERIAL BLOOD GAS BASE EXCESS 5.6 mmol/L (-2-2); ARTERIAL BLOOD GAS PO2 79.1 mmHg (80-100); ARTERIAL BLOOD GAS pH 7.398 (7.350-7.450)
[2021-11-13 10:16] LABS: ALLENS TEST POSITIVE
[2021-11-13 10:17] LABS: VENT MODE A/C; VENT RATE 30
[2021-11-13] MEDS: MUPIROCIN 2% TOPICAL OINTMENT FOR DECOLONIZATION NS SCH ×2 (12:17→21:02)
[2021-11-13] MEDS: FLUDROCORTISONE ACETATE 0.1 MG TABLET (FP) NGT SCH (12:17)
[2021-11-13] MEDS: HYDROCORTISONE SOD SUCCINATE 100 MG/2 ML VIAL IVPUSH SCH ×2 (13:10→21:03)
[2021-11-13] MEDS: MIDAZOLAM IN 0.9 % SOD.CHLORID 100 MG/100 ML PLAST..BAG IVPB SCH (17:52)
[2021-11-13] MEDS: CYCLOBENZAPRINE HCL 5 MG TABLET PO SCH (20:44)
[2021-11-13] MEDS: ATORVASTATIN CA 40 MG TABLET (FP) PO SCH (21:03)
[2021-11-13] MEDS: LIDOCAINE PATCH REMOVAL MC SCH (21:03)
[2021-11-13] MEDS: CHLORHEXIDINE GLUCONATE 4% CLEANSER FOR DECOLONIZATION TP SCH (21:03)
[2021-11-13] MEDS: INSULIN (LEVEMIR) 100 UNITS/ML UNITS SQ SCH (21:09)
[2021-11-14] MEDS: NYSTATIN 500,000 UNITS/5 ML SUSPENSION PO SCH ×3 (01:16→12:53)
[2021-11-14] MEDS ORDERED: PIPERACILLIN/TAZOBACTAM 2.25 GM VIAL IVPB ONE ×3 (01:19→17:33)
[2021-11-14] MEDS ORDERED: DEXTROSE 5%-WATER - 50 ML IVPB ONE ×3 (01:19→17:33)
[2021-11-14] MEDS: PIPERACILLIN/TAZOB 2.25 GM 2.25 GM in DEXTROSE 5%-WATER - 50 ML IVPB SCH ×3 (01:22→18:21)
[2021-11-14] MEDS: FENTANYL NS IVPB 500 MCG/100 ML BAG IVPB SCH (05:16)
[2021-11-14] MEDS: HYDROCORTISONE SOD SUCCINATE 100 MG/2 ML VIAL IVPUSH SCH ×3 (05:16→21:04)
[2021-11-14] MEDS: HEPARIN NA (PORCINE) 5,000 UNITS/ML 1ML VIAL SQ SCH ×3 (05:16→21:04)
[2021-11-14] MEDS: MIDAZOLAM IN 0.9 % SOD.CHLORID 100 MG/100 ML PLAST..BAG IVPB SCH (05:17)
[2021-11-14 05:53] LABS: ARTERIAL BLD GAS O2 SATURATION 96.7 % (95-98); ARTERIAL BLOOD GAS BASE EXCESS 5.1 mmol/L (-2-2); ARTERIAL BLOOD GAS PO2 84.3 mmHg (80-100); ARTERIAL BLOOD GAS pH 7.447 (7.350-7.450)
[2021-11-14] MEDS: INSULIN SLIDING SCALE (NOVOLOG) 1 VIAL SQ SCH ×4 (06:00→21:08)
[2021-11-14 06:32] LABS: HEMATOCRIT 33.9 % (35.4-49); HEMOGLOBIN 11.6 GM/dL (11.7-16.9); MCH 31.9 pg (25.7-33.7); MCHC 34.4 g/dl (32.0-35.9); MEAN CELL VOLUME 92.8 fl (80-96); MEAN PLT VOLUME 7.9 fl (7.5-11.1); PLATELET COUNT 187 10^3/uL (134-434); RBC 3.65 M/mm3 (4.00-5.60); RDW 12.9 % (11.9-15.9); WHITE BLOOD COUNT 21.7 K/mm3 (4.0-10.0)
[2021-11-14 06:35] LABS: CHLORIDE 97 mmol/L (98-107); SODIUM 140 mmol/L (136-145)
[2021-11-14 06:37] LABS: ANION GAP 9 MMOL/L (8-16); BLOOD UREA NITROGEN 57.1 mg/dL (7-18); CALCIUM 7.9 mg/dL (8.5-10.1); CO2 34 mmol/L (21-32); GLUCOSE,RANDOM 180 mg/dL (74-106)
[2021-11-14 06:38] LABS: ALBUMIN 1.7 g/dl (3.4-5.0)
[2021-11-14 06:40] LABS: SGPT/ALT 31 U/L (13-61)
[2021-11-14 06:41] LABS: SGOT/AST 64 U/L (15-37)
[2021-11-14 06:42] LABS: BILIRUBIN,TOTAL 1.1 mg/dL (0.2-1); TOT PROT 5.4 g/dl (6.4-8.2)
[2021-11-14 06:57] LABS: ALK PHOS 86 U/L (45-117)
[2021-11-14 06:57] LABS: ALLENS TEST POSITIVE
[2021-11-14 06:58] LABS: VENT MODE A/C; VENT RATE 30
[2021-11-14] MEDS: FLUDROCORTISONE ACETATE 0.1 MG TABLET (FP) NGT SCH (09:42)
[2021-11-14] MEDS: POLYETHYLENE GLYCOL (HEALTHYLAX) 3350 17 GM PACKET PO SCH (09:42)
[2021-11-14] MEDS: PANTOPRAZOLE SODIUM 40 MG VIAL IVPUSH SCH (09:42)
[2021-11-14] MEDS: ASPIRIN 81 MG CHEWABLE TABLETS PO SCH (09:43)
[2021-11-14] MEDS: ABACAVIR SULFATE 300 MG TABLET PO SCH (09:45)
[2021-11-14] MEDS: DOLUTEGRAVIR SODIUM 50 MG TABLET (NON-FORMULARY) PO SCH (09:45)
[2021-11-14] MEDS: LIDOCAINE 5% TOPICAL PATCH TP SCH (09:45)
[2021-11-14] MEDS: DARUNAVIR 800 MG/COBICISTAT 150MG TABLET PO SCH (09:45)
[2021-11-14 10:02] LABS: ANISOCYTOSIS 0; HELMET CELLS 0; HOWELL-JOLLY BODIES 0; MACROCYTOSIS 0; OVALOCYTE 0; ROULEAU 0; SICKELED CELLS 0; TARGET CELLS 0; TEAR DROP CELLS 0; TOXIC GRANULATION 0
[2021-11-14] MEDS: MUPIROCIN 2% TOPICAL OINTMENT FOR DECOLONIZATION NS SCH ×2 (11:30→22:35)
[2021-11-14] MEDS: DOCUSATE SODIUM 100 MG CAPSULE (FP) PO SCH ×2 (12:52→21:04)
[2021-11-14] MEDS: NOREPINEPHRINE D5W PREMIX 16,000 MCG/500 ML BAG IVPB SCH (13:37)
[2021-11-14] MEDS ORDERED: PROPOFOL 200 MG/20 ML VIAL IVPUSH PRN ×2 (13:59→14:39)
[2021-11-14] MEDS: PROPOFOL 1,000,000 MCG/100 ML VIAL IVPB SCH (16:45)
[2021-11-14] MEDS: CYCLOBENZAPRINE HCL 5 MG TABLET PO SCH (20:47)
[2021-11-14] MEDS: CHLORHEXIDINE GLUCONATE 4% CLEANSER FOR DECOLONIZATION TP SCH (21:04)
[2021-11-14] MEDS: ATORVASTATIN CA 40 MG TABLET (FP) PO SCH (21:04)
[2021-11-14] MEDS: INSULIN (LEVEMIR) 100 UNITS/ML UNITS SQ SCH (21:09)
[2021-11-14] MEDS: LIDOCAINE PATCH REMOVAL MC SCH (21:09)
[2021-11-15] MEDS ORDERED: PIPERACILLIN/TAZOBACTAM 2.25 GM VIAL IVPB ONE ×2 (00:16→09:14)
[2021-11-15] MEDS ORDERED: DEXTROSE 5%-WATER - 50 ML IVPB ONE ×3 (00:16→11:53)
[2021-11-15] MEDS: PIPERACILLIN/TAZOB 2.25 GM 2.25 GM in DEXTROSE 5%-WATER - 50 ML IVPB SCH ×2 (02:30→09:16)
[2021-11-15] MEDS: FENTANYL NS IVPB 500 MCG/100 ML BAG IVPB SCH (03:02)
[2021-11-15] MEDS: HYDROCORTISONE SOD SUCCINATE 100 MG/2 ML VIAL IVPUSH SCH ×2 (05:59→19:07)
[2021-11-15] MEDS: HEPARIN NA (PORCINE) 5,000 UNITS/ML 1ML VIAL SQ SCH ×3 (05:59→22:30)
[2021-11-15] MEDS: NYSTATIN 500,000 UNITS/5 ML SUSPENSION PO SCH ×3 (05:59→17:41)
[2021-11-15] MEDS: INSULIN SLIDING SCALE (NOVOLOG) 1 VIAL SQ SCH ×5 (06:02→22:35)
[2021-11-15 06:47] LABS: HEMATOCRIT 30.8 % (35.4-49); HEMOGLOBIN 10.3 GM/dL (11.7-16.9); MCH 31.4 pg (25.7-33.7); MCHC 33.3 g/dl (32.0-35.9); MEAN CELL VOLUME 94.4 fl (80-96); MEAN PLT VOLUME 8.1 fl (7.5-11.1); PLATELET COUNT 192 10^3/uL (134-434); RBC 3.27 M/mm3 (4.00-5.60); RDW 13.5 % (11.9-15.9); WHITE BLOOD COUNT 21.8 K/mm3 (4.0-10.0)
[2021-11-15 07:06] LABS: CHLORIDE 97 mmol/L (98-107); SODIUM 140 mmol/L (136-145)
[2021-11-15 07:09] LABS: CALCIUM 7.7 mg/dL (8.5-10.1)
[2021-11-15 07:10] LABS: ALBUMIN 1.6 g/dl (3.4-5.0); ANION GAP 8 MMOL/L (8-16); CO2 35 mmol/L (21-32); GLUCOSE,RANDOM 400 mg/dL (74-106)
[2021-11-15 07:13] LABS: SGOT/AST 46 U/L (15-37); SGPT/ALT 32 U/L (13-61)
[2021-11-15 07:14] LABS: BILIRUBIN,TOTAL 0.7 mg/dL (0.2-1)
[2021-11-15 07:15] LABS: TOT PROT 5.1 g/dl (6.4-8.2)
[2021-11-15 07:16] LABS: ALK PHOS 106 U/L (45-117)
[2021-11-15 08:58] LABS: ANISOCYTOSIS 1+; MACROCYTOSIS 0
[2021-11-15] MEDS: FLUDROCORTISONE ACETATE 0.1 MG TABLET (FP) NGT SCH (09:16)
[2021-11-15] MEDS: ASPIRIN 81 MG CHEWABLE TABLETS PO SCH (09:16)
[2021-11-15] MEDS: POLYETHYLENE GLYCOL (HEALTHYLAX) 3350 17 GM PACKET PO SCH (09:17)
[2021-11-15] MEDS: LIDOCAINE 5% TOPICAL PATCH TP SCH (09:17)
[2021-11-15] MEDS: PANTOPRAZOLE SODIUM 40 MG VIAL IVPUSH SCH (09:17)
[2021-11-15] MEDS: DOLUTEGRAVIR SODIUM 50 MG TABLET (NON-FORMULARY) PO SCH (09:33)
[2021-11-15] MEDS: DARUNAVIR 800 MG/COBICISTAT 150MG TABLET PO SCH (09:33)
[2021-11-15] MEDS: ABACAVIR SULFATE 300 MG TABLET PO SCH (09:33)
[2021-11-15] MEDS: MUPIROCIN 2% TOPICAL OINTMENT FOR DECOLONIZATION NS SCH ×2 (10:28→22:29)
[2021-11-15] MEDS: DOCUSATE SODIUM 100 MG CAPSULE (FP) PO SCH ×2 (10:28→22:30)
[2021-11-15] MEDS ORDERED: INSULIN (LEVEMIR) 100 UNITS/ML UNITS SQ SCH (10:42)
[2021-11-15] MEDS ORDERED: VANCOMYCIN 1 GM in D5W (PRE-DOCKED) 1,000 MG/250 ML IVPB SCH (11:30)
[2021-11-15] MEDS ORDERED: CEFTRIAXONE 1 GM in DEXTROSE 5%-WATER - 50 ML IVPB SCH (11:45)
[2021-11-15] MEDS ORDERED: cefTRIAXone SODIUM 1 GM VIAL ONE (11:53)
[2021-11-15] MEDS: PROPOFOL 1,000,000 MCG/100 ML VIAL IVPB SCH (17:43)
[2021-11-15] MEDS: CYCLOBENZAPRINE HCL 5 MG TABLET PO SCH (20:41)
[2021-11-15] MEDS: CHLORHEXIDINE GLUCONATE 4% CLEANSER FOR DECOLONIZATION TP SCH (22:30)
[2021-11-15] MEDS: ATORVASTATIN CA 40 MG TABLET (FP) PO SCH (22:35)
[2021-11-15] MEDS: LIDOCAINE PATCH REMOVAL MC SCH (22:35)
[2021-11-16] MEDS: NYSTATIN 500,000 UNITS/5 ML SUSPENSION PO SCH ×6 (00:38→17:02)
[2021-11-16] MEDS: HYDROCORTISONE SOD SUCCINATE 100 MG/2 ML VIAL IVPUSH SCH ×3 (01:36→17:02)
[2021-11-16] MEDS: NOREPINEPHRINE D5W PREMIX 16,000 MCG/500 ML BAG IVPB SCH (02:08)
[2021-11-16] MEDS: FENTANYL NS IVPB 500 MCG/100 ML BAG IVPB SCH (04:00)
[2021-11-16] MEDS: HEPARIN NA (PORCINE) 5,000 UNITS/ML 1ML VIAL SQ SCH ×3 (05:26→21:27)
[2021-11-16] MEDS: INSULIN SLIDING SCALE (NOVOLOG) 1 VIAL SQ SCH ×3 (06:09→17:13)
[2021-11-16 06:46] LABS: HEMOGLOBIN 11.2 GM/dL (11.7-16.9); MCH 32.7 pg (25.7-33.7); MCHC 34.9 g/dl (32.0-35.9); MEAN CELL VOLUME 93.9 fl (80-96); MEAN PLT VOLUME 8.1 fl (7.5-11.1); PLATELET COUNT 177 10^3/uL (134-434); RBC 3.41 M/mm3 (4.00-5.60); RDW 13.6 % (11.9-15.9); WHITE BLOOD COUNT 14.4 K/mm3 (4.0-10.0)
[2021-11-16 06:50] LABS: BLOOD UREA NITROGEN 72.8 mg/dL (7-18); CALCIUM 7.6 mg/dL (8.5-10.1)
[2021-11-16 06:53] LABS: CREATININE 2.5 mg/dL (0.55-1.3)
[2021-11-16] MEDS ORDERED: INSULIN (LEVEMIR) 100 UNITS/ML UNITS SQ SCH (08:36)
[2021-11-16] MEDS: INSULIN (LEVEMIR) 100 UNITS/ML UNITS SQ SCH ×2 (09:44→21:29)
[2021-11-16] MEDS ORDERED: LORazepam 2 MG/ML SDV VIAL IVPUSH ONE (10:16)
[2021-11-16] MEDS ORDERED: DEXTROSE 5%-WATER 100 ML IVPB ONE (10:20)
[2021-11-16] MEDS: CEFTRIAXONE 2 GM in DEXTROSE 5%-WATER 100 ML IVPB SCH (10:28)
[2021-11-16] MEDS: PANTOPRAZOLE SODIUM 40 MG VIAL IVPUSH SCH (10:28)
[2021-11-16] MEDS: FLUDROCORTISONE ACETATE 0.1 MG TABLET (FP) NGT SCH (10:29)
[2021-11-16] MEDS: DOCUSATE SODIUM 100 MG CAPSULE (FP) PO SCH ×2 (10:29→21:26)
[2021-11-16] MEDS: ASPIRIN 81 MG CHEWABLE TABLETS PO SCH (10:29)
[2021-11-16] MEDS: DOLUTEGRAVIR SODIUM 50 MG TABLET (NON-FORMULARY) PO SCH (10:30)
[2021-11-16] MEDS: LIDOCAINE 5% TOPICAL PATCH TP SCH (10:30)
[2021-11-16] MEDS: DARUNAVIR 800 MG/COBICISTAT 150MG TABLET PO SCH (10:30)
[2021-11-16] MEDS: MUPIROCIN 2% TOPICAL OINTMENT FOR DECOLONIZATION NS SCH ×2 (10:30→21:24)
[2021-11-16] MEDS: POLYETHYLENE GLYCOL (HEALTHYLAX) 3350 17 GM PACKET PO SCH (10:30)
[2021-11-16] MEDS: ABACAVIR SULFATE 300 MG TABLET PO SCH (10:31)
[2021-11-16] MEDS ORDERED: INSULIN SLIDING SCALE (NOVOLOG) 1 VIAL SQ SCH ×2 (11:00)
[2021-11-16 11:49] LABS: SMUDGE CELLS MANY
[2021-11-16 11:50] LABS: TEAR DROP CELLS 2+
[2021-11-16] MEDS: PROPOFOL 1,000,000 MCG/100 ML VIAL IVPB SCH (15:13)
[2021-11-16] MEDS: CYCLOBENZAPRINE HCL 5 MG TABLET PO SCH (20:53)
[2021-11-16] MEDS: CHLORHEXIDINE GLUCONATE 4% CLEANSER FOR DECOLONIZATION TP SCH (21:27)
[2021-11-16] MEDS: ATORVASTATIN CA 40 MG TABLET (FP) PO SCH (21:31)
[2021-11-16] MEDS: LIDOCAINE PATCH REMOVAL MC SCH (21:31)
[2021-11-17] MEDS: NYSTATIN 500,000 UNITS/5 ML SUSPENSION PO SCH ×5 (01:15→23:31)
[2021-11-17] MEDS: HYDROCORTISONE SOD SUCCINATE 100 MG/2 ML VIAL IVPUSH SCH ×4 (01:15→17:54)
[2021-11-17] MEDS: HEPARIN NA (PORCINE) 5,000 UNITS/ML 1ML VIAL SQ SCH ×3 (05:24→21:43)
[2021-11-17] MEDS: INSULIN (LEVEMIR) 100 UNITS/ML UNITS SQ SCH ×2 (06:02→21:44)
[2021-11-17] MEDS: INSULIN SLIDING SCALE (NOVOLOG) 1 VIAL SQ SCH ×3 (06:04→17:55)
[2021-11-17 07:31] LABS: HEMATOCRIT 31.7 % (35.4-49); HEMOGLOBIN 10.8 GM/dL (11.7-16.9); MCHC 34.2 g/dl (32.0-35.9); MEAN CELL VOLUME 93.6 fl (80-96); MEAN PLT VOLUME 8.3 fl (7.5-11.1); PLATELET COUNT 185 10^3/uL (134-434); RBC 3.39 M/mm3 (4.00-5.60); RDW 13.9 % (11.9-15.9); WHITE BLOOD COUNT 14.5 K/mm3 (4.0-10.0)
[2021-11-17 07:46] LABS: CALCIUM 8.2 mg/dL (8.5-10.1)
[2021-11-17 07:47] LABS: BLOOD UREA NITROGEN 79.4 mg/dL (7-18)
[2021-11-17 07:50] LABS: CREATININE 2.3 mg/dL (0.55-1.3)
[2021-11-17] MEDS ORDERED: PROPOFOL 200 MG/20 ML VIAL IVPUSH ONE (08:15)
[2021-11-17] MEDS ORDERED: ROCURONIUM BROMIDE 50 MG/5 ML VIAL IV ONE (08:15)
[2021-11-17] MEDS ORDERED: DEXTROSE 5%-WATER 100 ML IVPB ONE (09:03)
[2021-11-17] MEDS: CEFTRIAXONE 2 GM in DEXTROSE 5%-WATER 100 ML IVPB SCH (09:08)
[2021-11-17] MEDS: PANTOPRAZOLE SODIUM 40 MG VIAL IVPUSH SCH (09:11)
[2021-11-17] MEDS: KCL 10 MEQ IVPB 10 MEQ/100 ML INFUS.BAG IVPB SCH ×3 (09:42→13:01)
[2021-11-17] MEDS: DEXTROSE 5%-WATER - 1,000 ML IV SCH (09:42)
[2021-11-17 10:00] LABS: ANISOCYTOSIS 1+; MACROCYTOSIS 0; TARGET CELLS 1+; TEAR DROP CELLS 1+
[2021-11-17] MEDS: DARUNAVIR 800 MG/COBICISTAT 150MG TABLET PO SCH (11:10)
[2021-11-17] MEDS: DOLUTEGRAVIR SODIUM 50 MG TABLET (NON-FORMULARY) PO SCH (11:11)
[2021-11-17] MEDS: FLUDROCORTISONE ACETATE 0.1 MG TABLET (FP) NGT SCH (11:12)
[2021-11-17] MEDS: ASPIRIN 81 MG CHEWABLE TABLETS PO SCH (11:12)
[2021-11-17] MEDS: ABACAVIR SULFATE 300 MG TABLET PO SCH (11:13)
[2021-11-17] MEDS: LIDOCAINE 5% TOPICAL PATCH TP SCH (11:32)
[2021-11-17] MEDS: DOCUSATE SODIUM 100 MG CAPSULE (FP) PO SCH ×2 (11:33→21:43)
[2021-11-17] MEDS: POLYETHYLENE GLYCOL (HEALTHYLAX) 3350 17 GM PACKET PO SCH (11:33)
[2021-11-17] MEDS: PROPOFOL 1,000,000 MCG/100 ML VIAL IVPB SCH (15:33)
[2021-11-17] MEDS: CYCLOBENZAPRINE HCL 5 MG TABLET PO SCH (20:28)
[2021-11-17] MEDS: CHLORHEXIDINE GLUCONATE 4% CLEANSER FOR DECOLONIZATION TP SCH (21:44)
[2021-11-17] MEDS: LIDOCAINE PATCH REMOVAL MC SCH (21:45)
[2021-11-17] MEDS: ATORVASTATIN CA 40 MG TABLET (FP) PO SCH (21:45)
[2021-11-17] MEDS ORDERED: INSULIN (LEVEMIR) 100 UNITS/ML UNITS SQ SCH (22:00)
[2021-11-18] MEDS: HYDROCORTISONE SOD SUCCINATE 100 MG/2 ML VIAL IVPUSH SCH ×4 (01:24→22:02)
[2021-11-18] MEDS: ACETAMINOPHEN 650 MG/20.3 ML ORAL SOLUTION (CUPS) GT PRN ×2 (02:38→13:51)
[2021-11-18] MEDS: HEPARIN NA (PORCINE) 5,000 UNITS/ML 1ML VIAL SQ SCH ×3 (05:26→21:38)
[2021-11-18] MEDS: NYSTATIN 500,000 UNITS/5 ML SUSPENSION PO SCH ×3 (05:27→18:46)
[2021-11-18] MEDS: INSULIN (LEVEMIR) 100 UNITS/ML UNITS SQ SCH ×2 (06:25→21:42)
[2021-11-18] MEDS: INSULIN SLIDING SCALE (NOVOLOG) 1 VIAL SQ SCH ×3 (06:25→17:03)
[2021-11-18 07:05] LABS: HEMATOCRIT 29.8 % (35.4-49); MCH 31.7 pg (25.7-33.7); MCHC 33.6 g/dl (32.0-35.9); MEAN CELL VOLUME 94.3 fl (80-96); PLATELET COUNT 213 10^3/uL (134-434); RBC 3.16 M/mm3 (4.00-5.60); RDW 14.2 % (11.9-15.9); WHITE BLOOD COUNT 23.4 K/mm3 (4.0-10.0)
[2021-11-18 07:15] LABS: CALCIUM 7.6 mg/dL (8.5-10.1)
[2021-11-18 07:22] LABS: CREATININE 2.4 mg/dL (0.55-1.3)
[2021-11-18] MEDS ORDERED: INSULIN (LEVEMIR) 100 UNITS/ML UNITS SQ ONE (08:11)
[2021-11-18] MEDS ORDERED: DEXTROSE 5%-WATER 100 ML IVPB ONE (08:40)
[2021-11-18] MEDS: DEXTROSE 5%-WATER - 1,000 ML IV SCH (08:59)
[2021-11-18] MEDS ORDERED: DEXTROSE 5%-WATER - 1,000 ML IV SCH ×2 (09:05→09:06)
[2021-11-18] MEDS: PANTOPRAZOLE SODIUM 40 MG VIAL IVPUSH SCH (09:06)
[2021-11-18] MEDS: CEFTRIAXONE 2 GM in DEXTROSE 5%-WATER 100 ML IVPB SCH (09:06)
[2021-11-18] MEDS: LIDOCAINE 5% TOPICAL PATCH TP SCH (09:15)
[2021-11-18] MEDS: POLYETHYLENE GLYCOL (HEALTHYLAX) 3350 17 GM PACKET PO SCH (09:15)
[2021-11-18] MEDS: ASPIRIN 81 MG CHEWABLE TABLETS PO SCH (09:22)
[2021-11-18] MEDS: DARUNAVIR 800 MG/COBICISTAT 150MG TABLET PO SCH (09:23)
[2021-11-18] MEDS: ABACAVIR SULFATE 300 MG TABLET PO SCH (09:23)
[2021-11-18] MEDS: DOLUTEGRAVIR SODIUM 50 MG TABLET (NON-FORMULARY) PO SCH (09:23)
[2021-11-18] MEDS: DOCUSATE SODIUM 100 MG CAPSULE (FP) PO SCH (09:24)
[2021-11-18] MEDS: FLUDROCORTISONE ACETATE 0.1 MG TABLET (FP) NGT SCH (09:25)
[2021-11-18 10:12] LABS: ANISOCYTOSIS 0; HELMET CELLS 0; HOWELL-JOLLY BODIES 0; MACROCYTOSIS 0; OVALOCYTE 0; ROULEAU 0; SICKELED CELLS 0; TARGET CELLS 0; TEAR DROP CELLS 0; TOXIC GRANULATION 0
[2021-11-18] MEDS: SODIUM CHLORIDE 0.45% 1,000 ML IV SCH (11:40)
[2021-11-18] MEDS ORDERED: DEXTROSE 5%-WATER - 50 ML IVPB ONE ×3 (14:32→20:20)
[2021-11-18] MEDS ORDERED: PIPERACILLIN/TAZOBACTAM 2.25 GM VIAL IVPB ONE ×3 (14:32→20:19)
[2021-11-18] MEDS: PIPERACILLIN/TAZOB 2.25 GM 2.25 GM in DEXTROSE 5%-WATER - 50 ML IVPB SCH ×2 (14:35→20:21)
[2021-11-18] MEDS: CYCLOBENZAPRINE HCL 5 MG TABLET PO SCH (19:52)
[2021-11-18] MEDS: CHLORHEXIDINE GLUCONATE 4% CLEANSER FOR DECOLONIZATION TP SCH (21:39)
[2021-11-18] MEDS: ATORVASTATIN CA 40 MG TABLET (FP) PO SCH (21:40)
[2021-11-18] MEDS: LIDOCAINE PATCH REMOVAL MC SCH (21:41)
[2021-11-19] MEDS: NYSTATIN 500,000 UNITS/5 ML SUSPENSION PO SCH ×5 (01:00→23:44)
[2021-11-19] MEDS ORDERED: DEXTROSE 5%-WATER - 50 ML IVPB ONE ×4 (02:05→20:51)
[2021-11-19] MEDS ORDERED: PIPERACILLIN/TAZOBACTAM 2.25 GM VIAL IVPB ONE ×4 (02:05→20:51)
[2021-11-19] MEDS: PIPERACILLIN/TAZOB 2.25 GM 2.25 GM in DEXTROSE 5%-WATER - 50 ML IVPB SCH ×4 (02:07→20:53)
[2021-11-19] MEDS: SODIUM CHLORIDE 0.45% 1,000 ML IV SCH ×2 (05:00→12:03)
[2021-11-19] MEDS ORDERED: DEXTROSE 50%-WATER - 25 GM/50 ML VIAL IVPUSH ONE (05:10)
[2021-11-19] MEDS ORDERED: DEXTROSE 50%-WATER 25 GM/50 ML DISP.SYRIN ONE (05:17)
[2021-11-19] MEDS: HEPARIN NA (PORCINE) 5,000 UNITS/ML 1ML VIAL SQ SCH ×3 (05:43→21:01)
[2021-11-19] MEDS: INSULIN SLIDING SCALE (NOVOLOG) 1 VIAL SQ SCH ×3 (06:29→16:03)
[2021-11-19] MEDS: INSULIN (LEVEMIR) 100 UNITS/ML UNITS SQ SCH ×2 (06:29→21:08)
[2021-11-19 07:04] LABS: HEMATOCRIT 27.3 % (35.4-49); MCH 30.6 pg (25.7-33.7); MCHC 32.9 g/dl (32.0-35.9); MEAN CELL VOLUME 93.2 fl (80-96); MEAN PLT VOLUME 9.1 fl (7.5-11.1); PLATELET COUNT 223 10^3/uL (134-434); RBC 2.93 M/mm3 (4.00-5.60); RDW 14.2 % (11.9-15.9)
[2021-11-19 07:29] LABS: WHITE BLOOD COUNT 30.6 K/mm3 (4.0-10.0)
[2021-11-19 07:33] LABS: BLOOD UREA NITROGEN 87.8 mg/dL (7-18); CALCIUM 7.7 mg/dL (8.5-10.1)
[2021-11-19 07:36] LABS: CREATININE 2.1 mg/dL (0.55-1.3)
[2021-11-19] MEDS: FLUDROCORTISONE ACETATE 0.1 MG TABLET (FP) NGT SCH (09:39)
[2021-11-19] MEDS: LIDOCAINE 5% TOPICAL PATCH TP SCH (09:40)
[2021-11-19] MEDS: PANTOPRAZOLE SODIUM 40 MG VIAL IVPUSH SCH (09:40)
[2021-11-19] MEDS ORDERED: ABACAVIR SULFATE 300 MG TABLET PO SCH (10:00)
[2021-11-19] MEDS ORDERED: ASPIRIN 81 MG CHEWABLE TABLETS PO SCH (10:00)
[2021-11-19] MEDS ORDERED: POLYETHYLENE GLYCOL (HEALTHYLAX) 3350 17 GM PACKET PO SCH (10:00)
[2021-11-19] MEDS ORDERED: DOLUTEGRAVIR SODIUM 50 MG TABLET (NON-FORMULARY) PO SCH (10:00)
[2021-11-19] MEDS ORDERED: DARUNAVIR 800 MG/COBICISTAT 150MG TABLET PO SCH (10:00)
[2021-11-19] MEDS: HYDROCORTISONE SOD SUCCINATE 100 MG/2 ML VIAL IVPUSH SCH ×2 (10:01→23:44)
[2021-11-19 10:40] LABS: PLATELET ESTIMATE NORMAL
[2021-11-19] MEDS: KCL 10 MEQ IVPB 10 MEQ/100 ML INFUS.BAG IVPB SCH ×3 (12:04→14:00)
[2021-11-19] MEDS ORDERED: ABACAVIR SULFATE 20 MG/1 ML LIQUID BULK BOTTLE PO SCH (16:45)
[2021-11-19] MEDS: ABACAVIR SULFATE 20 MG/1 ML LIQUID BULK BOTTLE GT SCH (18:30)
[2021-11-19] MEDS ORDERED: CYCLOBENZAPRINE HCL 5 MG TABLET PO SCH (20:00)
[2021-11-19] MEDS: CYCLOBENZAPRINE HCL 5 MG TABLET NGT SCH (20:53)
[2021-11-19] MEDS: ATORVASTATIN CA 40 MG TABLET (FP) NGT SCH (21:01)
[2021-11-19] MEDS: LIDOCAINE PATCH REMOVAL MC SCH (21:01)
[2021-11-19] MEDS: CHLORHEXIDINE GLUCONATE 4% CLEANSER FOR DECOLONIZATION TP SCH (21:02)
[2021-11-19] MEDS ORDERED: ATORVASTATIN CA 40 MG TABLET (FP) PO SCH (22:00)
[2021-11-20] MEDS ORDERED: DEXTROSE 5%-WATER - 50 ML IVPB ONE ×4 (01:49→22:00)
[2021-11-20] MEDS ORDERED: PIPERACILLIN/TAZOBACTAM 2.25 GM VIAL IVPB ONE ×5 (01:49→21:59)
[2021-11-20] MEDS: PIPERACILLIN/TAZOB 2.25 GM 2.25 GM in DEXTROSE 5%-WATER - 50 ML IVPB SCH ×4 (03:33→22:00)
[2021-11-20] MEDS: NYSTATIN 500,000 UNITS/5 ML SUSPENSION PO SCH ×3 (05:31→17:07)
[2021-11-20] MEDS: HEPARIN NA (PORCINE) 5,000 UNITS/ML 1ML VIAL SQ SCH ×3 (05:31→21:59)
[2021-11-20 06:52] LABS: HEMATOCRIT 24.1 % (35.4-49); HEMOGLOBIN 7.9 GM/dL (11.7-16.9); MCH 30.7 pg (25.7-33.7); MCHC 32.7 g/dl (32.0-35.9); MEAN CELL VOLUME 93.7 fl (80-96); MEAN PLT VOLUME 9.4 fl (7.5-11.1); PLATELET COUNT 265 10^3/uL (134-434); RBC 2.57 M/mm3 (4.00-5.60); RDW 14.1 % (11.9-15.9)
[2021-11-20 07:05] LABS: WHITE BLOOD COUNT 32.3 K/mm3 (4.0-10.0)
[2021-11-20 07:18] LABS: CALCIUM 7.6 mg/dL (8.5-10.1); MAGNESIUM 2.7 mg/dL (1.8-2.4)
[2021-11-20 07:22] LABS: CREATININE 2.2 mg/dL (0.55-1.3); PHOSPHOROUS 5.2 mg/dL (2.5-4.9)
[2021-11-20] MEDS: INSULIN SLIDING SCALE (NOVOLOG) 1 VIAL SQ SCH ×3 (07:45→17:06)
[2021-11-20] MEDS: INSULIN (LEVEMIR) 100 UNITS/ML UNITS SQ SCH ×2 (07:45→22:09)
[2021-11-20 08:54] LABS: ANISOCYTOSIS 0; HELMET CELLS 0; HOWELL-JOLLY BODIES 0; MACROCYTOSIS 0; OVALOCYTE 0; ROULEAU 0; SICKELED CELLS 0; TARGET CELLS 0; TEAR DROP CELLS 0; TOXIC GRANULATION 0
[2021-11-20] MEDS: ASPIRIN 81 MG CHEWABLE TABLETS NGT SCH (09:20)
[2021-11-20] MEDS: LIDOCAINE 5% TOPICAL PATCH TP SCH (09:21)
[2021-11-20] MEDS: PANTOPRAZOLE SODIUM 40 MG VIAL IVPUSH SCH (09:21)
[2021-11-20] MEDS: POLYETHYLENE GLYCOL (HEALTHYLAX) 3350 17 GM PACKET NGT SCH (09:21)
[2021-11-20] MEDS: FLUDROCORTISONE ACETATE 0.1 MG TABLET (FP) NGT SCH (09:21)
[2021-11-20] MEDS: DOLUTEGRAVIR SODIUM 50 MG TABLET (NON-FORMULARY) GT SCH (09:22)
[2021-11-20] MEDS: ABACAVIR SULFATE 20 MG/1 ML LIQUID BULK BOTTLE GT SCH (09:22)
[2021-11-20] MEDS: POTASSIUM CHLORIDE 20 MEQ PREMIX IVPB 100 ML IVPB SCH ×2 (09:24→11:14)
[2021-11-20] MEDS: SODIUM CHLORIDE 0.45% 1,000 ML IV SCH ×2 (11:21→21:00)
[2021-11-20] MEDS: HYDROCORTISONE SOD SUCCINATE 100 MG/2 ML VIAL IVPUSH SCH ×2 (11:21→22:00)
[2021-11-20] MEDS: ATORVASTATIN CA 40 MG TABLET (FP) NGT SCH (21:58)
[2021-11-20] MEDS: CYCLOBENZAPRINE HCL 5 MG TABLET NGT SCH (21:59)
[2021-11-20] MEDS: CHLORHEXIDINE GLUCONATE 4% CLEANSER FOR DECOLONIZATION TP SCH (22:08)
[2021-11-20] MEDS: LIDOCAINE PATCH REMOVAL MC SCH (22:08)
[2021-11-21] MEDS: NYSTATIN 500,000 UNITS/5 ML SUSPENSION PO SCH ×4 (00:01→18:29)
[2021-11-21] MEDS ORDERED: PIPERACILLIN/TAZOBACTAM 2.25 GM VIAL IVPB ONE ×4 (02:32→22:29)
[2021-11-21] MEDS ORDERED: DEXTROSE 5%-WATER - 50 ML IVPB ONE ×4 (02:32→22:29)
[2021-11-21] MEDS: PIPERACILLIN/TAZOB 2.25 GM 2.25 GM in DEXTROSE 5%-WATER - 50 ML IVPB SCH ×4 (02:42→22:44)
[2021-11-21] MEDS: HEPARIN NA (PORCINE) 5,000 UNITS/ML 1ML VIAL SQ SCH ×3 (06:16→22:44)
[2021-11-21] MEDS: INSULIN (LEVEMIR) 100 UNITS/ML UNITS SQ SCH ×2 (06:16→22:46)
[2021-11-21] MEDS: INSULIN SLIDING SCALE (NOVOLOG) 1 VIAL SQ SCH ×3 (06:16→16:57)
[2021-11-21 07:51] LABS: HEMATOCRIT 20.7 % (35.4-49); MCHC 33.7 g/dl (32.0-35.9); PLATELET COUNT 314 10^3/uL (134-434); RBC 2.25 M/mm3 (4.00-5.60); RDW 14.1 % (11.9-15.9); WHITE BLOOD COUNT 23.6 K/mm3 (4.0-10.0)
[2021-11-21 08:18] LABS: ALBUMIN 1.4 g/dl (3.4-5.0); BLOOD UREA NITROGEN 98.3 mg/dL (7-18); CALCIUM 7.7 mg/dL (8.5-10.1); MAGNESIUM 2.8 mg/dL (1.8-2.4)
[2021-11-21 08:23] LABS: CREATININE 2.1 mg/dL (0.55-1.3); PHOSPHOROUS 5.7 mg/dL (2.5-4.9)
[2021-11-21 08:26] LABS: BILIRUBIN,TOTAL 0.6 mg/dL (0.2-1)
[2021-11-21] MEDS: ASPIRIN 81 MG CHEWABLE TABLETS NGT SCH (09:58)
[2021-11-21] MEDS: POLYETHYLENE GLYCOL (HEALTHYLAX) 3350 17 GM PACKET NGT SCH (09:58)
[2021-11-21] MEDS: LIDOCAINE 5% TOPICAL PATCH TP SCH (09:58)
[2021-11-21] MEDS: FLUDROCORTISONE ACETATE 0.1 MG TABLET (FP) NGT SCH (09:58)
[2021-11-21] MEDS: PANTOPRAZOLE SODIUM 40 MG VIAL IVPUSH SCH (09:59)
[2021-11-21] MEDS: DOLUTEGRAVIR SODIUM 50 MG TABLET (NON-FORMULARY) GT SCH (09:59)
[2021-11-21] MEDS: ABACAVIR SULFATE 20 MG/1 ML LIQUID BULK BOTTLE GT SCH (09:59)
[2021-11-21 10:03] LABS: ANISOCYTOSIS 0; MACROCYTOSIS 0; PLATELET ESTIMATE NORMAL; ROULEAU 1+
[2021-11-21] MEDS: HYDROCORTISONE SOD SUCCINATE 100 MG/2 ML VIAL IVPUSH SCH ×2 (11:58→22:44)
[2021-11-21] MEDS: SODIUM CHLORIDE 0.45% 1,000 ML IV SCH ×2 (11:59→21:00)
[2021-11-21] MEDS: NOREPINEPHRINE D5W PREMIX 16,000 MCG/500 ML BAG IVPB SCH (18:09)
[2021-11-21] MEDS: ATORVASTATIN CA 40 MG TABLET (FP) NGT SCH (22:44)
[2021-11-21] MEDS: LIDOCAINE PATCH REMOVAL MC SCH (22:44)
[2021-11-21] MEDS: CHLORHEXIDINE GLUCONATE 4% CLEANSER FOR DECOLONIZATION TP SCH (22:44)
[2021-11-21] MEDS: CYCLOBENZAPRINE HCL 5 MG TABLET NGT SCH (22:45)
[2021-11-21 22:59] LABS: HEMATOCRIT 17.2 % (35.4-49); MCH 30.7 pg (25.7-33.7); MCHC 32.7 g/dl (32.0-35.9); MEAN CELL VOLUME 93.8 fl (80-96); PLATELET COUNT 413 10^3/uL (134-434); RBC 1.83 M/mm3 (4.00-5.60); RDW 14.1 % (11.9-15.9)
[2021-11-21 23:04] LABS: INR 1.44 (0.83-1.09); PROTHROMBIN TIME (PATIENT) 16.6 SEC (9.7-13.0)
[2021-11-21 23:06] LABS: ACTIVATED PTT 27.1 SECONDS (25.2-36.5)
[2021-11-21 23:10] LABS: HEMOGLOBIN 5.6 GM/dL (11.7-16.9); WHITE BLOOD COUNT 31.6 K/mm3 (4.0-10.0)
[2021-11-21 23:17] LABS: CHLORIDE 106 mmol/L (98-107); SODIUM 144 mmol/L (136-145)
[2021-11-21 23:19] LABS: ANION GAP 8 MMOL/L (8-16); CALCIUM 7.5 mg/dL (8.5-10.1); CO2 30 mmol/L (21-32); GLUCOSE,RANDOM 130 mg/dL (74-106)
[2021-11-21 23:22] LABS: ALBUMIN 1.3 g/dl (3.4-5.0); SGPT/ALT 30 U/L (13-61)
[2021-11-21 23:23] LABS: CREATININE 2.4 mg/dL (0.55-1.3); SGOT/AST 49 U/L (15-37)
[2021-11-21 23:24] LABS: BILIRUBIN,TOTAL 0.6 mg/dL (0.2-1)
[2021-11-21 23:25] LABS: ALK PHOS 84 U/L (45-117)
[2021-11-21 23:27] LABS: TOT PROT 5.7 g/dl (6.4-8.2)
[2021-11-21 23:40] LABS: ANISOCYTOSIS 0; MACROCYTOSIS 0; PLATELET ESTIMATE INCREASED
[2021-11-22] MEDS ORDERED: PIPERACILLIN/TAZOBACTAM 2.25 GM VIAL IVPB ONE ×4 (01:16→22:02)
[2021-11-22] MEDS ORDERED: DEXTROSE 5%-WATER - 50 ML IVPB ONE ×4 (01:17→22:02)
[2021-11-22] MEDS: NYSTATIN 500,000 UNITS/5 ML SUSPENSION PO SCH ×4 (01:27→17:26)
[2021-11-22] MEDS: PIPERACILLIN/TAZOB 2.25 GM 2.25 GM in DEXTROSE 5%-WATER - 50 ML IVPB SCH ×4 (02:10→22:02)
[2021-11-22] MEDS: INSULIN (LEVEMIR) 100 UNITS/ML UNITS SQ SCH ×2 (06:54→22:16)
[2021-11-22] MEDS: INSULIN SLIDING SCALE (NOVOLOG) 1 VIAL SQ SCH ×3 (06:55→17:35)
[2021-11-22] MEDS ORDERED: PANTOPRAZOLE SODIUM 80 MG in SODIUM CHLORIDE 100 ML IVPB SCH (07:15)
[2021-11-22] MEDS: PANTOPRAZOLE SODIUM 160 MG in SODIUM CHLORIDE 290 ML IVPB SCH (09:46)
[2021-11-22] MEDS: POLYETHYLENE GLYCOL (HEALTHYLAX) 3350 17 GM PACKET NGT SCH (09:48)
[2021-11-22] MEDS: FLUDROCORTISONE ACETATE 0.1 MG TABLET (FP) NGT SCH (09:49)
[2021-11-22] MEDS: DOLUTEGRAVIR SODIUM 50 MG TABLET (NON-FORMULARY) GT SCH (09:50)
[2021-11-22] MEDS: LIDOCAINE 5% TOPICAL PATCH TP SCH (09:50)
[2021-11-22] MEDS: ABACAVIR SULFATE 20 MG/1 ML LIQUID BULK BOTTLE GT SCH (09:51)
[2021-11-22] MEDS: HYDROCORTISONE SOD SUCCINATE 100 MG/2 ML VIAL IVPUSH SCH ×2 (11:41→22:03)
[2021-11-22 13:52] LABS: CHLORIDE 106 mmol/L (98-107); SODIUM 144 mmol/L (136-145)
[2021-11-22 13:53] LABS: CALCIUM 7.2 mg/dL (8.5-10.1)
[2021-11-22 13:54] LABS: ANION GAP 14 MMOL/L (8-16); CO2 23 mmol/L (21-32); GLUCOSE,RANDOM 273 mg/dL (74-106)
[2021-11-22 13:57] LABS: CREATININE 2.7 mg/dL (0.55-1.3)
[2021-11-22 14:15] LABS: BLOOD UREA NITROGEN 122.8 mg/dL (7-18)
[2021-11-22] MEDS: NOREPINEPHRINE D5W PREMIX 16,000 MCG/500 ML BAG IVPB SCH (17:22)
[2021-11-22] MEDS: SODIUM CHLORIDE 0.45% 1,000 ML IV SCH (17:25)
[2021-11-22 20:04] LABS: HEMATOCRIT 20.6 % (35.4-49); MCH 30.4 pg (25.7-33.7); MCHC 33.5 g/dl (32.0-35.9); MEAN CELL VOLUME 90.8 fl (80-96); MEAN PLT VOLUME 9.2 fl (7.5-11.1); PLATELET COUNT 419 10^3/uL (134-434); RBC 2.27 M/mm3 (4.00-5.60); RDW 15.1 % (11.9-15.9); WHITE BLOOD COUNT 26.4 K/mm3 (4.0-10.0)
[2021-11-22 20:12] LABS: HEMOGLOBIN 6.9 GM/dL (11.7-16.9)
[2021-11-22 21:30] LABS: ANISOCYTOSIS 2+; MACROCYTOSIS 1+; PLATELET ESTIMATE INCREASED
[2021-11-22] MEDS: CHLORHEXIDINE GLUCONATE 4% CLEANSER FOR DECOLONIZATION TP SCH (22:01)
[2021-11-22] MEDS: CYCLOBENZAPRINE HCL 5 MG TABLET NGT SCH (22:01)
[2021-11-22] MEDS: ATORVASTATIN CA 40 MG TABLET (FP) NGT SCH (22:01)
[2021-11-22] MEDS: LIDOCAINE PATCH REMOVAL MC SCH (22:01)
[2021-11-23] MEDS: NYSTATIN 500,000 UNITS/5 ML SUSPENSION PO SCH ×4 (01:00→18:01)
[2021-11-23] MEDS ORDERED: PIPERACILLIN/TAZOBACTAM 2.25 GM VIAL IVPB ONE ×4 (02:12→22:26)
[2021-11-23] MEDS ORDERED: DEXTROSE 5%-WATER - 50 ML IVPB ONE ×4 (02:13→22:26)
[2021-11-23] MEDS: PIPERACILLIN/TAZOB 2.25 GM 2.25 GM in DEXTROSE 5%-WATER - 50 ML IVPB SCH ×4 (02:21→22:28)
[2021-11-23] MEDS: PANTOPRAZOLE SODIUM 160 MG in SODIUM CHLORIDE 290 ML IVPB SCH (03:00)
[2021-11-23] MEDS: INSULIN SLIDING SCALE (NOVOLOG) 1 VIAL SQ SCH ×3 (06:32→17:23)
[2021-11-23] MEDS: INSULIN (LEVEMIR) 100 UNITS/ML UNITS SQ SCH ×2 (06:32→22:32)
[2021-11-23 07:52] LABS: HEMATOCRIT 22.1 % (35.4-49); HEMOGLOBIN 7.4 GM/dL (11.7-16.9); MCH 30.3 pg (25.7-33.7); MCHC 33.6 g/dl (32.0-35.9); MEAN PLT VOLUME 8.9 fl (7.5-11.1); PLATELET COUNT 433 10^3/uL (134-434); RBC 2.46 M/mm3 (4.00-5.60); WHITE BLOOD COUNT 27.3 K/mm3 (4.0-10.0)
[2021-11-23] MEDS: FLUDROCORTISONE ACETATE 0.1 MG TABLET (FP) NGT SCH (10:20)
[2021-11-23] MEDS: POLYETHYLENE GLYCOL (HEALTHYLAX) 3350 17 GM PACKET NGT SCH (10:20)
[2021-11-23] MEDS: LIDOCAINE 5% TOPICAL PATCH TP SCH (10:20)
[2021-11-23] MEDS: DOLUTEGRAVIR SODIUM 50 MG TABLET (NON-FORMULARY) GT SCH (10:21)
[2021-11-23] MEDS: ABACAVIR SULFATE 20 MG/1 ML LIQUID BULK BOTTLE GT SCH (10:21)
[2021-11-23] MEDS: HYDROCORTISONE SOD SUCCINATE 100 MG/2 ML VIAL IVPUSH SCH ×2 (10:27→22:28)
[2021-11-23] MEDS: SODIUM CHLORIDE 0.45% 1,000 ML IV SCH (11:15)
[2021-11-23] MEDS: HEPARIN NA (PORCINE) 5,000 UNITS/ML 1ML VIAL SQ SCH (14:00)
[2021-11-23] MEDS: NOREPINEPHRINE D5W PREMIX 16,000 MCG/500 ML BAG IVPB SCH ×2 (15:30→17:00)
[2021-11-23] MEDS: CYCLOBENZAPRINE HCL 5 MG TABLET NGT SCH (22:24)
[2021-11-23] MEDS: LIDOCAINE PATCH REMOVAL MC SCH (22:24)
[2021-11-23] MEDS: CHLORHEXIDINE GLUCONATE 4% CLEANSER FOR DECOLONIZATION TP SCH (22:24)
[2021-11-23] MEDS: ATORVASTATIN CA 40 MG TABLET (FP) NGT SCH (22:24)
[2021-11-24] MEDS ORDERED: PIPERACILLIN/TAZOBACTAM 2.25 GM VIAL IVPB ONE ×4 (00:33→21:34)
[2021-11-24] MEDS ORDERED: DEXTROSE 5%-WATER - 50 ML IVPB ONE ×4 (00:33→21:34)
[2021-11-24] MEDS: NYSTATIN 500,000 UNITS/5 ML SUSPENSION PO SCH ×4 (02:12→17:26)
[2021-11-24] MEDS: PIPERACILLIN/TAZOB 2.25 GM 2.25 GM in DEXTROSE 5%-WATER - 50 ML IVPB SCH ×4 (02:13→21:42)
[2021-11-24] MEDS: SODIUM CHLORIDE 0.45% 1,000 ML IV SCH ×3 (02:18→16:21)
[2021-11-24] MEDS: INSULIN SLIDING SCALE (NOVOLOG) 1 VIAL SQ SCH ×3 (06:39→16:24)
[2021-11-24] MEDS: INSULIN (LEVEMIR) 100 UNITS/ML UNITS SQ SCH ×2 (06:39→21:48)
[2021-11-24] MEDS: PANTOPRAZOLE SODIUM 160 MG in SODIUM CHLORIDE 290 ML IVPB SCH ×2 (07:00→09:34)
[2021-11-24] MEDS: POLYETHYLENE GLYCOL (HEALTHYLAX) 3350 17 GM PACKET NGT SCH (09:17)
[2021-11-24] MEDS: FLUDROCORTISONE ACETATE 0.1 MG TABLET (FP) NGT SCH (09:17)
[2021-11-24] MEDS: DOLUTEGRAVIR SODIUM 50 MG TABLET (NON-FORMULARY) GT SCH (09:18)
[2021-11-24] MEDS: ABACAVIR SULFATE 20 MG/1 ML LIQUID BULK BOTTLE GT SCH (09:18)
[2021-11-24] MEDS: LIDOCAINE 5% TOPICAL PATCH TP SCH (09:18)
[2021-11-24] MEDS: ASPIRIN 81 MG CHEWABLE TABLETS NGT SCH (09:21)
[2021-11-24] MEDS: HYDROCORTISONE SOD SUCCINATE 100 MG/2 ML VIAL IVPUSH SCH ×2 (10:13→22:02)
[2021-11-24] MEDS: NOREPINEPHRINE D5W PREMIX 16,000 MCG/500 ML BAG IVPB SCH ×2 (14:58→17:00)
[2021-11-24] MEDS: CHLORHEXIDINE GLUCONATE 4% CLEANSER FOR DECOLONIZATION TP SCH (21:42)
[2021-11-24] MEDS: LIDOCAINE PATCH REMOVAL MC SCH (21:42)
[2021-11-24] MEDS: CYCLOBENZAPRINE HCL 5 MG TABLET NGT SCH (21:42)
[2021-11-24] MEDS: ATORVASTATIN CA 40 MG TABLET (FP) NGT SCH (21:43)
[2021-11-25] MEDS: NYSTATIN 500,000 UNITS/5 ML SUSPENSION PO SCH
[2021-11-25] MEDS ORDERED: PIPERACILLIN/TAZOBACTAM 2.25 GM VIAL IVPB ONE (01:21)
[2021-11-25] MEDS ORDERED: DEXTROSE 5%-WATER - 50 ML IVPB ONE (01:21)
[2021-11-25] MEDS: PIPERACILLIN/TAZOB 2.25 GM 2.25 GM in DEXTROSE 5%-WATER - 50 ML IVPB SCH (02:08)
[2021-11-25 04:50] VITALS: TEMP 97.9
[2021-11-25 04:51] VITALS: BP 44/24; PULSE 67
== END 2021-11-25 04:45 | disposition expired | DRG 64 ==
LOC: JER 13:43 → JERBED 16:41 → J4S 22:39 → J8W 11-11 11:16 → J4S 11-11 19:06 → JICU 11-12 02:23
PROVIDERS: ADMIT Internal Medicine; ATTEND Family Medicine
PROC: 0BH17EZ Insertion of Endotracheal Airway into Trachea, Via Natural or Artificial Opening (ICD-10-PCS; 2021-11-12)
PROC: 5A1955Z Respiratory Ventilation, Greater than 96 Consecutive Hours (ICD-10-PCS; 2021-11-12)
PROC: 05HN33Z Insertion of Infusion Device into Left Internal Jugular Vein, Percutaneous Approach (ICD-10-PCS; principal; 2021-11-13)
PROC: B544ZZA Ultrasonography of Left Jugular Veins, Guidance (ICD-10-PCS; 2021-11-13)
PROC: 03HY32Z Insertion of Monitoring Device into Upper Artery, Percutaneous Approach (ICD-10-PCS; 2021-11-13)
PROC: 4A133B1 Monitoring of Arterial Pressure, Peripheral, Percutaneous Approach (ICD-10-PCS; 2021-11-13)
PROC: 4A133J1 Monitoring of Arterial Pulse, Peripheral, Percutaneous Approach (ICD-10-PCS; 2021-11-13)
PROC: 30233N1 Transfusion of Nonautologous Red Blood Cells into Peripheral Vein, Percutaneous Approach (ICD-10-PCS; 2021-11-21)
DX: I63.89 Other cerebral infarction (principal); E43 Unspecified severe protein-calorie malnutrition; R53.2 Functional quadriplegia; R65.21 Severe sepsis with septic shock; A41.89 Other specified sepsis; J96.01 Acute respiratory failure with hypoxia; J96.02 Acute respiratory failure with hypercapnia; J69.0 Pneumonitis due to inhalation of food and vomit; R64 Cachexia; N17.9 Acute kidney failure, unspecified; E87.1 Hypo-osmolality and hyponatremia; E87.2 Acidosis; I24.8 Other forms of acute ischemic heart disease; G93.49 Other encephalopathy; E87.0 Hyperosmolality and hypernatremia; G93.1 Anoxic brain damage, not elsewhere classified; R29.701 NIHSS score 1; I25.10 Atherosclerotic heart disease of native coronary artery without angina pectoris; J44.9 Chronic obstructive pulmonary disease, unspecified; N40.0 Benign prostatic hyperplasia without lower urinary tract symptoms; R91.8 Other nonspecific abnormal finding of lung field; I12.9 Hypertensive chronic kidney disease with stage 1 through stage 4 chronic kidney disease, or unspecified chronic kidney disease; N18.30 Chronic kidney disease, stage 3 unspecified; E11.22 Type 2 diabetes mellitus with diabetic chronic kidney disease; R41.82 Altered mental status, unspecified; R55 Syncope and collapse; M54.50 Low back pain, unspecified; Z21 Asymptomatic human immunodeficiency virus [HIV] infection status; I45.10 Unspecified right bundle-branch block; D72.829 Elevated white blood cell count, unspecified; E78.5 Hyperlipidemia, unspecified; R00.0 Tachycardia, unspecified; E86.0 Dehydration; E87.5 Hyperkalemia; E77.8 Other disorders of glycoprotein metabolism; I08.2 Rheumatic disorders of both aortic and tricuspid valves; R26.81 Unsteadiness on feet; I95.9 Hypotension, unspecified; E55.9 Vitamin D deficiency, unspecified; E88.09 Other disorders of plasma-protein metabolism, not elsewhere classified; R33.9 Retention of urine, unspecified; E11.65 Type 2 diabetes mellitus with hyperglycemia; E11.42 Type 2 diabetes mellitus with diabetic polyneuropathy; I46.9 Cardiac arrest, cause unspecified; Z95.5 Presence of coronary angioplasty implant and graft; Z68.21 Body mass index [BMI] 21.0-21.9, adult; Z79.84 Long term (current) use of oral hypoglycemic drugs
CPT/HCPCS: 0241U-QW; 36415; 36430; 36600; 70450-TC; 70551-TC; 71045-TC-FY; 74018-TC-FY; 74230-TC-FY; 80048; 80053; 80061; 81003; 82550; 82553; 82803; 82962; 83036; 83605; 83735; 83880; 84100; 84484; 85025; 85027; 85379; 85610; 85730; 86850; 86900; 86901; 86922; 87040; 87070; 87077; 87086; 87186; 87205; 87807; 92611-GN; 93005; 93010; 93306-TC; 93880-TC; 93970-TC; 94002; 94640; 94660; 95816; 97116-GP; 97161-GP; 99285-25; C9803-CS; J1644; J3490; P9058; U0003; U0005